=== PATIENT | female | born 1960 | race Caucasian/White ===

== ENCOUNTER 2021-11-01 07:54 | Outpatient (REF) | payer OTHER, SELFPAY ==
--- NOTE | ~2021-11-01 | MM_ITS ---
EXAMINATION: MM SCREENING DIGITAL BREAST TOMOSYNTHESIS, BILATERAL CLINICAL INFORMATION: Screening. Asymptomatic. The lifetime risk of breast cancer based on the Tyrer-Cuzick Model is 4%. COMPARISON: Mammography: 11/30/2018, the 10/03/2017, 09/10/2015, 01/13/2015 TECHNIQUE: Digital breast tomosynthesis is performed in both the craniocaudal and mediolateral oblique views along with computer-aided detection (CAD). Synthesized 2D images are generated from the tomosynthesis. FINDINGS: There are scattered areas of fibroglandular density (ACR BI-RADS breast composition Category b). There are no significant masses, abnormal calcifications, or other abnormalities. There are scattered shifting fibroglandular parenchymal densities overall similar to prior studies. No developing density or interval architectural abnormality. There are scattered bilateral ductal secretory, vascular, and some rim calcifications. No significant changes. MM/MM tomosynthesis screening BI IMPRESSION: No mammographic evidence of malignancy. ASSESSMENT: BI-RADS 2: Benign RECOMMENDATION: Routine annual mammography screening. This patient's information was entered into a reminder system with a target due date for their next mammogram.
== END 2021-11-01 07:55 | disposition home or self-care (01) ==
LOC: HO.MAMMO 07:54
PROVIDERS: Visit Provider Internal Medicine
DX: Z12.31 Encounter for screening mammogram for malignant neoplasm of breast (principal)
CPT/HCPCS: 77063; 77067

== ENCOUNTER 2022-04-22 21:59 | Emergency (ER) | payer OTHER, SELFPAY ==
--- NOTE | ~2022-04-22 | XR_ITS ---
EXAMINATION: XR ELBOW, RIGHT CLINICAL INFORMATION: Pain. COMPARISON: None TECHNIQUE: AP, lateral, and oblique views of the right elbow.
[2022-04-22 22:02] VITALS: BP 118/56; PULSE 120; RESP 18; TEMP 36.5; O2SAT 96; BMI 23.6
== END 2022-04-23 00:35 | disposition left against medical advice (07) ==
PROVIDERS: Emergency Provider Emergency Medicine
DX: M79.601 Pain in right arm (principal); Z79.01 Long term (current) use of anticoagulants; Z79.899 Other long term (current) drug therapy
CPT/HCPCS: 73070; 99281; 99283

== ENCOUNTER → 2022-11-16 08:10 | Outpatient (BNVA) | payer OTHER, SELFPAY | PROVIDERS: Visit Provider Internal Medicine | DX: I50.23 Acute on chronic systolic (congestive) heart failure (principal); I48.19 Other persistent atrial fibrillation; I35.0 Nonrheumatic aortic (valve) stenosis; I36.1 Nonrheumatic tricuspid (valve) insufficiency; Z95.2 Presence of prosthetic heart valve; Z79.899 Other long term (current) drug therapy | CPT/HCPCS: 99202 ==

== ENCOUNTER → 2022-12-08 08:46 | Outpatient (REF) | payer OTHER, SELFPAY ==
--- NOTE | 2022-12-08 08:54 | CA_ITS ---
Transthoracic Echocardiogram Patient (Last, First, Middle): Ruby Anthony A Gender: Female Date of : 1960 Age: 62 Procedure Date: 12/08/2022 Procedure Type: Transthoracic Echocardiogram Location: OP Height: 160.02 cm Weight: 56.25 kg BSA: 1.58 m2 Heart Rate: bpm BP: 136 / 58 mmHg Occ Ther: JOE Referring MD: Phoenix Silverman MD Symptoms: Z95.2 - Presence of prosthetic heart valve Study Quality: Fair ECG Rhythm: Atrial Fibrillation Conclusions: - The left ventricular systolic function is severely decreased. The visually estimated ejection fraction is between 25-30%. - Severe biatrial enlargement. - There is moderate to severe aortic valve stenosis. - A mechanical prosthetic mitral valve is present. The prosthetic mitral valve appears to be functioning normally. - There is moderate tricuspid valve regurgitation. Findings Left Ventricle Mildly increased left ventricular cavity size. There is mildly increased left ventricular wall thickness. The left ventricular systolic function is severely decreased. The visually estimated ejection fraction is between 25 30%. There is severe global hypokinesis. Diastolic function is indeterminate on the basis of available data. Right Ventricle Normal right ventricular cavity size. There is moderately decreased right ventricular systolic function. Atria Severe biatrial enlargement. Aortic Valve There is moderate calcification of the aortic valve. There is moderate to severe aortic valve stenosis. The peak aortic velocity is 2.55 m/s with a calculated peak gradient of 26 mmHg. The mean gradient is 14 mmHg. The aortic valve area is 0.98 cm2. There is mild aortic valve regurgitation. Dimensionless index 0.29. Stroke volume index 31ml/m2. Diminished gradients due to low stroke volume. Mitral Valve A mechanical prosthetic mitral valve is present. The prosthetic mitral valve appears to be functioning normally. There is trace mitral valve regurgitation. Pulmonic Valve The pulmonic valve is likely normal. Tricuspid Valve Normal tricuspid valve structure. There is moderate tricuspid valve regurgitation. The tricuspid regurgitation jet is eccentric directed toward the right atrial free wall. Mild pulmonary hypertension is present. Great Vessels The asc aorta is normal in size. Small plaque is seen in the sino tubular ridge. Venous The inferior vena cava is dilated and collapses greater than 50% with inspiration. There is evidence of a dilated coronary sinus. Pericardium/Pleural There is no evidence of pericardial effusion. Prior Study Comparison Changes noted compared to prior study dated: 05/10/2012. Decrease in LVEF; development of aortic stenosis. Measurements 2D Linear Measurements IVSd: 1.22 0.6-0.9/0.6-1.0 cm LVIDd: 5.75 3.9-5.3/4.2-5.9 cm LVIDd Index: 3.64 2.4-3.2/2.2-3.1 cm/m2 LVIDs: 5.07 2.0-3.6 cm LVPWd: 1.28 0.7-1.1 cm LA Diam: 5.00 2.7-3.8/3.0-4.0 cm LAIDs Index: 3.16 1.5-2.3 cm/m2 LV Mass: 386.26 67-162/88-224 g LV Mass Index: 244.47 43-95/49-115 g/m2 LVOT Diam: 2.00 3.0+(-)1.3 cm 2D Systolic Function EF 4C: 35.30 >55% EF 2C: 41.50 >55% EF BiP: 36.80 >55% Mitral Valve MV VTI: 0.38 MV Pk Tito: 1.85 MV Mn Tito: 1.10 MV Pk Grad: 14.00 MV Mn Grad: 6.00 MV Pk E: 1.71 MV Decel Time: 274.00 E'Lateral: 6.96 E'Medial: 5.02 E/E' Med: 34.10 E/E' Lat: 24.60 PHT: 80.00 MVA PHT: 2.75 MVA Continuity: 1.30 Decel [place]: 6.33 Aortic Valve AoV Pk Tito: 2.55 AoV Mn Tito: 1.68 AoV VTI: 0.51 AoV Pk Grad: 26.00 Aov Mn Grad: 14.00 RON Cont.VTI: 0.98 AI Pk Tito: 3.39 AI [place]: 3.37 LVOT LVOT Pk Tito: 0.75 LVOT Mn Tito: 0.49 LVOT VTI: 0.16 LVOT Pk Grad: 2.00 LVOT Mn Grad: 1.00 LVOT Diam: 2.00 LVOT Area: 3.14 Diastolic Function MV Pk E: 1.71 E'Medial: 5.02 E/E' Med: 34.10 E' Laterial: 6.96 E/E' Lat: 24.60 Right Ventricle TAPSE (mm): 17.20 TVS' Tito: 8.03 Tricuspid Valve TR Pk Tito: 3.10 TR Pk Grad: 38.00 RA Press: 8.00 RVSP: 46.00 Great Vessels Aorta Sinus of Valsalva: 3.22 2.0-3.[address] [place]: 1.85 1.7-3.4 cm Ao Asc: 3.00 2.1-3.4 cm Updated in Other Vendor System with Status of Final Phoenix Silvemran MD electronically signed on 12/11/2022 1:03:31 PM with status of Final
--- NOTE | 2022-12-08 08:54 | HM_ITS ---
* Total monitoring time 3 days. * Underlying rhythm is atrial fibrillation. Average ventricular rate 100/Min. Range 68 to 145/Min. * About 36% the time, rate > 100/Min. * Frequent PVCs with a burden of 7.6%. 3 runs noted. Longest 4 beats. * No significant pauses or AV blocks. * No patient markers or events in diary. MTDD
[2022-12-08 09:52] LABS: Anion Gap 15 (12-20); Blood Urea Nitrogen 73 mg/dL (9-16); Calcium 9.2 mg/dL (8.4-10.2); Carbon Dioxide 29 mmol/L (22-29); Chloride 100 mmol/L (96-108); Estimated Glomerular Filt Rate 29; Glucose Random 147 mg/dL (60-115); Potassium 3.9 mmol/L (3.3-5.1); Sodium 140 mmol/L (135-145)
[2022-12-08 10:03] LABS: B Type Natriuretic Peptide 254 pg/mL (<100)
== END ==
LOC: HO.CARD 08:46
PROVIDERS: Visit Provider Internal Medicine
DX: I48.19 Other persistent atrial fibrillation (principal); I50.23 Acute on chronic systolic (congestive) heart failure; Z95.2 Presence of prosthetic heart valve
CPT/HCPCS: 36415; 80048; 83880; 93242; 93306

== ENCOUNTER 2022-12-30 02:03 | Emergency (ER) | payer OTHER, SELFPAY ==
--- NOTE | 2022-12-30 02:07 | ECG_ITS ---
Test Reason : SOB Blood Pressure : / mmHG Vent. Rate : 084 BPM Atrial Rate : 000 BPM P-R Int : 000 ms QRS Dur : 102 ms QT Int : 406 ms P-R-T Axes : 000 089 239 degrees QTc Int : 479 ms Atrial fibrillation with a competing junctional pacemaker with premature ventricular or aberrantly conducted complexes Cannot rule out Anterior infarct , age undetermined Abnormal ECG When compared with ECG of 08-DEC-2017 20:20, Nonspecific T wave abnormality, worse in Inferior leads T wave inversion now evident in Lateral leads Referred By: Generic ED Physician Electronically Signed By:EZEQUIEL METZGER MD
[2022-12-30 02:08] VITALS: BP 127/43; PULSE 95; RESP 18; TEMP 36.6; O2SAT 99; BMI 23.0
[2022-12-30 02:22] VITALS: BP 127/43; PULSE 82; RESP 18; O2SAT 98
[2022-12-30 02:34] LABS: MANUAL DIFF FLAG NO
[2022-12-30 02:35] LABS: Basophils Absolute Auto 0.1 X10*3/uL (0.0-0.2); Basophils Percent Auto 0.6 % (0-2); Eosinophils Absolute Auto 0.1 X10*3/uL (0.0-0.4); Eosinophils Percent Auto 1.2 % (0-4); Hematocrit 31.9 % (37.0-47.0); Hemoglobin 10.6 g/dl (12.0-16.0); Imm Gran Abs Auto 0.08 X10*3/uL (0.00-0.03); Imm Gran Pct Auto 0.8 % (0.0-0.4); Lymphocytes Absolute Auto 1.1 X10*3/uL (1.2-4.9); Lymphocytes Percent Auto 10.9 % (20-40); Mean Corpuscular HGB Conc 33.2 g/dl (31.0-35.0); Mean Corpuscular Hemoglobin 28.3 pg (27.0-33.0); Mean Corpuscular Volume 85.1 fL (80.0-98.0); Mean Platelet Volume 9.7 fL (9.4-12.3); Monocytes Absolute Auto 0.9 X10*3/uL (0.1-1.2); Monocytes Percent Auto 9.3 % (2-11); Neutrophils Absolute Auto 7.6 x10*3/uL (2.0-8.3); Neutrophils Percent Auto 77.2 % (45-73); Platelet Count 202 X10*3/uL (160-400); Red Blood Count 3.75 X10*6/uL (4.20-5.50); Red Cell Distribution Width 15.9 % (11.0-16.0); White Blood Count 9.8 X10*3/uL (4.8-10.8)
[2022-12-30 02:40] LABS: INTERNATIONAL NORM RATIO 3.1 (0.9-1.1); Prothrombin Time 36.8 SEC (10.0-13.1)
--- NOTE | 2022-12-30 02:41 | PC.NURSE ---
pt ambulating with stady gait to bathroom.
[2022-12-30 02:46] LABS: Anion Gap 13 (12-20); Bilirubin Total 1.7 mg/dL (0.0-1.0); Blood Urea Nitrogen 24 mg/dL (9-16); Calcium 9.4 mg/dL (8.4-10.2); Carbon Dioxide 26 mmol/L (22-29); Chloride 102 mmol/L (96-108); Creatinine Clr Calc Pharmacy 52.8; Estimated Glomerular Filt Rate > 60; Glucose Random 93 mg/dL (60-115); Lipase 22 U/L (8-78); Sodium 137 mmol/L (135-145)
[2022-12-30 02:58] LABS: Troponin-I High Sensitivity 242.9 ng/L (<3.5-17.0)
--- NOTE | 2022-12-30 02:58 | ED_ITS ---
HPI - Chest Pain General Chief Complaint: Abdominal Pain Stated Complaint: chest pain Time Seen by Provider: 12/30/22 02:57 Source: patient Mode of arrival: ambulatory Limitations: no limitations History of Present Illness HPI narrative: Patient history of persistent atrial fibrillation on Coumadin prosthetic mitral valve , Jem nonrheumatic aortic stenosis tricuspid valve insufficiency acute on chronic CHF cardiomyopathy with no documented coronary issues history of ovarian cancer in remission been having upper abdominal epigastric pain for last 3 weeks was seen at [facility] in 12/17 CT scan of the abdomen with IV contrast was negative lab workup was stable with chronically elevated troponin T was 49 on 12/17 with no delta change comes here for similar pain which is getting worse now patient is on chronically oxycodone for back pain. No radiation of pain with food slight nausea no vomiting no diarrhea no significant change in shortness of breath no palpitation no chest pain Related Data Home Medications Medication Instructions Recorded Confirmed albuterol sulfate 2.5 mg/3 mL mg inhalation 11/16/22 11/16/22 (0.083 %) solution for nebulization atorvastatin 20 mg tablet 20 mg PO BEDTIME 11/16/22 11/16/22 duloxetine 30 mg capsule,delayed 30 mg PO DAILY 11/16/22 11/16/22 release febuxostat 80 mg tablet 80 mg PO DAILY 11/16/22 11/16/22 ferrous sulfate 325 mg (65 mg 325 mg PO BID 11/16/22 11/16/22 iron) tablet,delayed release glipizide 10 mg tablet 10 mg PO DAILY 11/16/22 11/16/22 sennosides 8.6 mg capsule (senna) 8.6 mg PO BID 11/16/22 11/16/22 sitagliptin phosphate 100 mg 100 mg PO DAILY 11/16/22 11/16/22 tablet (Januvia) warfarin 2.5 mg tablet 2.5 - 5 mg PO DAILY 11/16/22 11/16/22 amoxicillin 500 mg tablet 2,000 mg PO DAILY 11/22/22 cetirizine 10 mg capsule (All Day 10 mg PO DAILY PRN 11/22/22 Allergy (cetirizine)) digoxin 250 mcg (0.25 mg) tablet 250 mcg PO .M,W,F PRN 11/22/22 gabapentin 100 mg capsule 100 mg PO TID 11/22/22 glipizide 5 mg tablet 5 mg PO .PM 11/22/22 oxycodone 10 mg tablet 10 mg PO ONCE PRN 11/22/22 pramipexole 0.25 mg tablet 0.5 mg PO DAILY 11/22/22 sennosides 8.6 mg capsule (senna) 8.6 mg PO DAILY PRN constipation 11/22/22 spironolactone 25 mg tablet 25 mg PO BID 12/15/22 Previous Rx's Medication Instructions Recorded metolazone 2.5 mg tablet 2.5 mg PO .COMPLEX #10 tabs 11/16/22 carvedilol 3.125 mg tablet (Coreg) 3.125 mg PO BID #60 tabs 12/15/22 furosemide 20 mg tablet 20 mg PO TID #90 tabs 12/15/22 sucralfate 1 gram tablet 1 g PO TID #90 tabs 12/30/22 Allergies Allergy/AdvReac Type Severity Reaction Status Date / Time lisinopril [LISINOPRIL] Allergy Severe ANGIOEDEMA Verified 12/30/22 02:08 morphine [MORPHINE] Allergy Severe ANAPHYLAXIS Verified 12/30/22 02:08 penicillin V Allergy Intermediate Itching Verified 12/30/22 02:08 cefaclor [From CECLOR] Allergy Unknown HIVES Verified 12/30/22 02:08 ciprofloxacin Allergy Unknown itchy Verified 12/30/22 02:08 codeine Allergy Unknown HIVES Verified 12/30/22 02:08 erythromycin base Allergy Unknown HIVES Verified 12/30/22 02:08 gentamicin Allergy Unknown HIVES Verified 12/30/22 02:08 methylprednisolone Allergy Unknown Unknown Verified 12/30/22 02:08 nitrofurantoin Allergy Unknown Unknown Verified 12/30/22 02:08 olmesartan [Benicar] Allergy Unknown Unknown Verified 12/30/22 02:08 Penicillins Allergy Unknown HIVES Verified 12/30/22 02:08 Sulfa (Sulfonamide Allergy Unknown HIVES Verified 12/30/22 02:08 Antibiotics) sulfamethoxazole Allergy Unknown HIVES Verified 12/30/22 02:08 [From BACTRIM] trimethoprim [From BACTRIM] Allergy Unknown HIVES Verified 12/30/22 02:08 hydromorphone [From Dilaudid] AdvReac Shakiness Verified 12/30/22 02:08 odansetron Allergy Severe Hives Uncoded 12/30/22 02:08 Metoprolol Succinate Allergy Intermediate Hives Uncoded 12/30/22 02:08 celcor Allergy Unknown itchy Uncoded 12/30/22 02:08 Gentamicin in Saline Allergy Unknown hives Uncoded 12/30/22 02:08 Gentamicin Sulfate Allergy Unknown hives Uncoded 12/30/22 02:08 Latex Allergy Unknown Itching Uncoded 12/30/22 02:08 latex Allergy Unknown Itching Uncoded 12/30/22 02:08 sulfonamides Allergy Unknown Unknown Uncoded 12/30/22 02:08 vioxx Allergy Unknown Itching Uncoded 12/30/22 02:08 Bicitra AdvReac Unknown unknown Uncoded 12/30/22 02:08 Review of Systems Review of Systems: Yes all other systems are reviewed and are negative [facility] Past Medical History Medical History Non-rheumatic aortic stenosis Persistent atrial fibrillation Tricuspid valve insufficiency, non-rheumatic Surgical History H/O mitral valve replacement with mechanical valve Family History Family History Mother Heart disease Father Heart disease Diabetes Social History Social History Alcohol intake: never Patient Tobacco Use Status: Former Tobacco user Quit Date: 1990 Years Smoked: 4 +/- Smoked in Last 30 Days: No Use of substances other than those prescribed or required for medical reasons: No Advance Directives: No Advance Directives Information Provided: No Patient : No Physical Exam Vital Signs: Vital Signs: Last Vital Signs Temp 97.8 F 12/30/22 02:08 Pulse 82 12/30/22 04:14 Resp 16 12/30/22 04:14 BP 131/52 L 12/30/22 04:14 Pulse Ox 93 12/30/22 04:14 O2 Del Method Room Air 12/30/22 04:14 BMI result Body Mass Index 23.0 Appearance: Alert. Oriented X3. In my distress. Eyes: PERRLA, No Nystagmus ENT: Pharynx normal. Oral Mucosa moist Neck: Normal inspection. Neck supple. CVS: Irregularly irregular heart rate systolic murmur at the base. Pulses normal. Respiratory: No respiratory distress. Equal air entry bilateral, no wheezing/rales/rhonchi Abdomen: Soft, tenderness in epigastric area, Bowel sounds are present, no mass palpable, no CVA tenderness Skin: Skin warm and dry. Normal skin color. Normal skin turgor. Extremities: No lower extremity edema. No calf tenderness Neuro: Oriented X 3. No motor deficit. No sensory deficit.No cerebellar signs , cranial nerves II-XII intact Medications Administered Discontinued Medications Generic Name Dose Route Start Last Admin Trade Name Freq PRN Reason Stop Dose Admin Al Hydroxide/Mg Hydroxide 30 ml 12/30/22 03:03 12/30/22 03:12 Magnesium Hydrox/Alum Hydrox 30 Ml Oral.Susp PO 12/30/22 03:04 30 ml ONCE ONE Administration Famotidine 20 mg 12/30/22 03:03 12/30/22 03:12 Famotidine/Pf 20 Mg/2 Ml Vial IVPUSH 12/30/22 03:04 20 mg ONCE ONE Administration Hydromorphone HCl 1 mg 12/30/22 04:04 12/30/22 04:09 Hydromorphone Hcl 1 Mg/Ml Syringe IVPUSH 12/30/22 04:05 1 mg ONCE ONE Administration Protocol Lidocaine HCl 15 ml 12/30/22 04:04 12/30/22 04:09 Lidocaine Hcl Viscous 2 % 15 Ml Solution MUCOUS MEM 12/30/22 04:05 15 ml ONCE ONE Administration Nitroglycerin 0.5 inch 12/30/22 03:03 12/30/22 03:12 Nitroglycerin 2 % Oint 1 Gm Packet TRANSDERMA 12/30/22 03:04 0.5 inch ONCE ONE Administration Medical Decision Making Medical Decision Making [facility] Narrative: Patient with epigastric pain for last [address] scan of the abdomen negative at [facility] has chronically elevated troponin with no delta change no acute ischemic changes in the EKG patient be following with gastroenterologi st already on Prilosec and famotidine will add sucralfate patient Coumadin with INR 3.1 be patient felt better after Maalox. Discharge patient home on sucralfate tablets Differential Diagnosis Acute gastritis/pancreatitis/ Lab Data [facility] Lab Attestation statement: I reviewed the patient's lab results. 12/30/22 02:29 12/30/22 02:29 Labs: Lab Results 12/30/22 12/30/22 12/30/22 Range/Units 02:29 02:29 02:29 WBC 9.8 (4.8-10.8) X10*3/uL RBC 3.75 L (4.20-5.50) X10*6/uL Hgb 10.6 L (12.0-16.0) g/dl Hct 31.9 L (37.0-47.0) % MCV 85.1 (80.0-98.0) fL MCH 28.3 (27.0-33.0) pg MCHC 33.2 (31.0-35.0) g/dl RDW 15.9 (11.0-16.0) % Plt Count 202 (160-400) X10*3/uL MPV 9.7 (9.4-12.3) fL Immature Gran % (Auto) 0.8 H (0.0-0.4) % Neut % (Auto) 77.2 H (45-73) % Lymph % (Auto) 10.9 L (20-40) % [place] % (Auto) 9.3 (2-11) % Eos % (Auto) 1.2 (0-4) % Baso % (Auto) 0.6 (0-2) % Lymph # (Auto) 1.1 L (1.2-4.9) X10*3/uL [place] # (Auto) 0.9 (0.1-1.2) X10*3/uL Eos # (Auto) 0.1 (0.0-0.4) X10*3/uL Baso # (Auto) 0.1 (0.0-0.2) X10*3/uL Abs Immat Gran (auto) 0.08 H (0.00-0.03) X10*3/uL Absolute Neuts (auto) 7.6 (2.0-8.3) x10*3/uL Absolute Nucleated RBC 0.000 (0.0-0.012) X10*3/uL Nucleated RBC % (auto) 0.0 (0.0-0.2) /100WBC PT (10.0-13.1) SEC INR (0.9-1.1) Sodium 137 (135-145) mmol/L Potassium 4.0 (3.3-5.1) mmol/L Chloride 102 (96-108) mmol/L Carbon Dioxide 26 (22-29) mmol/L Anion Gap 13 (12-20) BUN 24 H (9-16) mg/dL Creatinine 0.89 (0.5-1.4) mg/dL Estim Creat Clear Calc 52.8 Estimated GFR > 60 Random Glucose 93 (60-115) mg/dL Calcium 9.4 (8.4-10.2) mg/dL Total Bilirubin 1.7 H (0.0-1.0) mg/dL Troponin I High Sens 242.9 H* (<3.5-17.0) ng/L Lipase 22 (8-78) U/L 12/30/22 12/30/22 Range/Units 02:29 04:40 WBC (4.8-10.8) X10*3/uL RBC (4.20-5.50) X10*6/uL Hgb (12.0-16.0) g/dl Hct (37.0-47.0) % MCV (80.0-98.0) fL MCH (27.0-33.0) pg MCHC (31.0-35.0) g/dl RDW (11.0-16.0) % Plt Count (160-400) X10*3/uL MPV (9.4-12.3) fL Immature Gran % (Auto) (0.0-0.4) % Neut % (Auto) (45-73) % Lymph % (Auto) (20-40) % [place] % (Auto) (2-11) % Eos % (Auto) (0-4) % Baso % (Auto) (0-2) % Lymph # (Auto) (1.2-4.9) X10*3/uL [place] # (Auto) (0.1-1.2) X10*3/uL Eos # (Auto) (0.0-0.4) X10*3/uL Baso # (Auto) (0.0-0.2) X10*3/uL Abs Immat Gran (auto) (0.00-0.03) X10*3/uL Absolute Neuts (auto) (2.0-8.3) x10*3/uL Absolute Nucleated RBC (0.0-0.012) X10*3/uL Nucleated RBC % (auto) (0.0-0.2) /100WBC PT 36.8 H (10.0-13.1) SEC INR 3.1 H (0.9-1.1) Sodium (135-145) mmol/L Potassium (3.3-5.1) mmol/L Chloride (96-108) mmol/L Carbon Dioxide (22-29) mmol/L Anion Gap (12-20) BUN (9-16) mg/dL Creatinine (0.5-1.4) mg/dL Estim Creat Clear Calc Estimated GFR Random Glucose (60-115) mg/dL Calcium (8.4-10.2) mg/dL Total Bilirubin (0.0-1.0) mg/dL Troponin I High Sens 233.8 H* (<3.5-17.0) ng/L Lipase (8-78) U/L Independent Interpretation I performed an independent interpretation of an: EKG Interpretation: Atrial fibrillation ventricular rate of 84 occasional PVCs poor progression of R-wave no acute ST T wave changes no acute ischemia Discharge Plan Discharge Clinical Impression: Gastritis Patient Disposition: Home, Self-Care Instructions: Gastritis (ED) Additional Instructions: Abdominal pain likely from inflammation in the stomach Continue to take your Prilosec and famotidine as given to you by your PCP Sucralfate 3 times a day before meals 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 as scheduled Prescriptions: New sucralfate 1 gram tablet 1 g PO TID Qty: 90 0RF Rx Instructions: Take it 1 hour before meals No Action metolazone 2.5 mg tablet 2.5 mg PO .COMPLEX Qty: 10 3RF Rx Instructions: 2.5 mg orally on Monday and ; digoxin 250 mcg (0.25 mg) tablet 250 mcg PO .M,W,F PRN Rx Instructions: 3x weekly glipizide 5 mg tablet 5 mg PO .PM senna 8.6 mg capsule 8.6 mg PO DAILY PRN (Reason: constipation) Rx Instructions: Take 2 tablets PRN constipation pramipexole 0.25 mg tablet 0.5 mg PO DAILY Rx Instructions: Take 2 tablets daily for Restless Leg Syndrome All Day Allergy (cetirizine) 10 mg capsule 10 mg PO DAILY PRN amoxicillin 500 mg tablet 2,000 mg PO DAILY Rx Instructions: Dental prophylaxis gabapentin 100 mg capsule 100 mg PO TID Rx Instructions: Neuropathy oxycodone 10 mg tablet 10 mg PO ONCE PRN Rx Instructions: PRN Back Pain carvedilol [Coreg] 3.125 mg tablet 3.125 mg PO BID Qty: 60 5RF Rx Instructions: must administer with a meal/food furosemide 20 mg tablet 20 mg PO TID Qty: 90 5RF spironolactone 25 mg tablet 25 mg PO BID warfarin 2.5 mg tablet 2.5 - 5 mg PO DAILY Januvia 100 mg tablet 100 mg PO DAILY glipizide 10 mg tablet 10 mg PO DAILY atorvastatin 20 mg tablet 20 mg PO BEDTIME senna 8.6 mg capsule 8.6 mg PO BID febuxostat 80 mg tablet 80 mg PO DAILY duloxetine 30 mg capsule,delayed release(DR/EC) 30 mg PO DAILY ferrous sulfate 325 mg (65 mg iron) tablet,delayed release (DR/EC) 325 mg PO BID albuterol sulfate 2.5 mg /3 mL (0.083 %) solution for nebulization inhalation
[2022-12-30 03:12] VITALS: BP 133/62; PULSE 80
[2022-12-30] MEDS: Nitroglycerin 2 % Oint 1 GM Packet 0.5 INCH TRANSDERMA (03:12)
[2022-12-30] MEDS: Magnesium Hydrox/Alum Hydrox 30 ML ORAL.SUSP PO (03:12)
[2022-12-30] MEDS: Famotidine/PF 20 MG/2 ML VIAL IVPUSH (03:12)
--- NOTE | 2022-12-30 03:44 | PC.NURSE ---
On reassessment, pt stating pain in abdomen reduced with administered medication. pt sts chest pain still at previous leve despite nitro paste. made aware.
[2022-12-30] MEDS: Lidocaine HCl Viscous 2 % 15 ML SOLUTION MUCOUS MEM (04:09)
[2022-12-30] MEDS: HYDROmorphone HCl 1 MG/ML SYRINGE IVPUSH (04:09)
[2022-12-30 04:14] VITALS: BP 131/52; PULSE 82; RESP 16; O2SAT 93
[2022-12-30 05:11] LABS: Troponin-I High Sensitivity 233.8 ng/L (<3.5-17.0)
== END 2022-12-30 06:29 | disposition home or self-care (01) ==
PROVIDERS: Emergency Provider Internal Medicine; PCP Emergency Medicine
DX: K29.70 Gastritis, unspecified, without bleeding (principal); R07.89 Other chest pain; I48.91 Unspecified atrial fibrillation; Z79.01 Long term (current) use of anticoagulants; Z79.899 Other long term (current) drug therapy
CPT/HCPCS: 36415; 80048; 82247; 83690; 84484; 85025; 85610; 93005; 96374; 96375; 99284; J1170

== ENCOUNTER 2023-01-26 08:24 | Outpatient (AMB) | payer OTHER, SELFPAY ==
[2023-01-26 08:32] VITALS: BP 115/70; PULSE 90; BMI 22.3
--- NOTE | 2023-01-26 08:32 | MHC.OFFVIS ---
Intake Vital Signs 01/26/23 08:32 Height 5 ft 3 in Weight 125 lb 10.616 oz BMI 22.3 BP 115/70 Blood Pressure Location Rt brachial Position Sitting Pulse 90 Intake Visit Reasons: OVERDUE FOLLOW UP S/P TESTING Intake Note: overdue f/u testing Cfd Engineer Required: No Allergies lisinopril [LISINOPRIL] Allergy (Severe, Verified 01/26/23 08:41) ANGIOEDEMA morphine [MORPHINE] Allergy (Severe, Verified 01/26/23 08:41) ANAPHYLAXIS penicillin V Allergy (Intermediate, Verified 01/26/23 08:41) Itching cefaclor [From CECLOR] Allergy (Unknown, Verified 01/26/23 08:41) HIVES ciprofloxacin Allergy (Unknown, Verified 01/26/23 08:41) itchy codeine Allergy (Unknown, Verified 01/26/23 08:41) HIVES erythromycin base Allergy (Unknown, Verified 01/26/23 08:41) HIVES gentamicin Allergy (Unknown, Verified 01/26/23 08:41) HIVES methylprednisolone Allergy (Unknown, Verified 01/26/23 08:41) Unknown nitrofurantoin Allergy (Unknown, Verified 01/26/23 08:41) Unknown olmesartan [Benicar] Allergy (Unknown, Verified 01/26/23 08:41) Unknown Penicillins Allergy (Unknown, Verified 01/26/23 08:41) HIVES Sulfa (Sulfonamide Antibiotics) Allergy (Unknown, Verified 01/26/23 08:41) HIVES sulfamethoxazole [From BACTRIM] Allergy (Unknown, Verified 01/26/23 08:41) HIVES trimethoprim [From BACTRIM] Allergy (Unknown, Verified 01/26/23 08:41) HIVES hydromorphone [From Dilaudid] Adverse Reaction (Verified 01/26/23 08:41) Shakiness odansetron Allergy (Severe, Uncoded 12/30/22 02:08) Hives Metoprolol Succinate Allergy (Intermediate, Uncoded 12/30/22 02:08) Hives celcor Allergy (Unknown, Uncoded 12/30/22 02:08) itchy Gentamicin in Saline Allergy (Unknown, Uncoded 12/30/22 02:08) hives Gentamicin Sulfate Allergy (Unknown, Uncoded 12/30/22 02:08) hives Latex Allergy (Unknown, Uncoded 12/30/22 02:08) Itching latex Allergy (Unknown, Uncoded 12/30/22 02:08) Itching sulfonamides Allergy (Unknown, Uncoded 12/30/22 02:08) Unknown vioxx Allergy (Unknown, Uncoded 12/30/22 02:08) Itching Bicitra Adverse Reaction (Unknown, Uncoded 12/30/22 02:08) unknown Medication List - Last Reconciled 01/26/23 by MARVEL DanielsC albuterol sulfate mg inhalation atorvastatin 20 mg PO BEDTIME cetirizine (All Day Allergy (cetirizine)) 10 mg PO DAILY PRN digoxin 250 mcg PO .M,W,F PRN febuxostat 80 mg PO DAILY ferrous sulfate 325 mg PO BID furosemide 20 mg PO TID gabapentin 100 mg PO TID metolazone 2.5 mg orally on Monday and ; mirtazapine 15 mg PO BEDTIME ondansetron 4 mg PO Q8H oxycodone 10 mg PO ONCE PRN pramipexole 0.5 mg PO DAILY quetiapine 25 mg PO BEDTIME sennosides (senna) 8.6 mg PO DAILY PRN sennosides (senna) 8.6 mg PO BID sitagliptin phosphate (Januvia) 100 mg PO DAILY spironolactone 25 mg PO BID sucralfate 1 g PO TID warfarin 2.5 - 5 mg PO DAILY HPI OVERDUE FOLLOW UP S/P TESTING HPI Details Coretta is a 63-year-old female with past medical history of hyperlipidemia, rheumatic heart disease, severe MS status post mechanical mitral valve replacement 1990, persistent atrial fibrillation, nonischemic cardiomyopathy, heart failure with reduced EF, aortic stenosis who was previously [facility] cardiology and has switched to our office. She has multiple medication allergies and was recently tried on carvedilol for elevated heart rates with her AFib and now presents for follow-up. Today she reports that she was not able to tolerate the carvedilol. She took it for 3 days and she had chest heaviness and needed to stop. She did change from torsemide to Lasix and tells me it works much better for her. She has been urinating more. She has some shortness of breath if she has to walk long distances. Breathing is comfortable with normal ADLs. She normally sleeps with her head of the bed elevated. no chest discomfort at rest or with activity. No palpitations, dizziness, presyncope, syncope, falls. Follows with [facility] anticoagulation clinic. No bleeding issues reported. Intolerant to many medications and has skin sensitivities to different things like detergents. Describes herself as active. [facility] Medical History Non-rheumatic aortic stenosis Persistent atrial fibrillation Tricuspid valve insufficiency, non-rheumatic Surgical History H/O mitral valve replacement with mechanical valve Family History Mother Heart disease Father Heart disease Diabetes Social History Alcohol intake: never Patient Tobacco Use Status: Former Tobacco user Quit Date: 1990 Years Smoked: 4 +/- Review of Systems Const All systems reviewed & are unremarkable except as noted in HPI and below ENT Reports dizziness Card Denies chest pain, Denies chest pain at rest, Denies chest pain with activity, Denies rapid heart rate, Denies pedal edema, Denies edema, Denies leg edema, Denies lightheadedness, Denies palpitations, Denies dyspnea, Denies dyspnea on exertion and Denies orthopnea Resp Denies cough, Denies dyspnea and Denies dyspnea on exertion GI Denies hematochezia and Denies change in stool character Musc Denies abnormal gait, Reports limited range of motion, Reports muscle cramps, Denies muscle weakness, Denies numbness, Denies radiating pain into limb, Denies stiffness and Denies tingling Neuro Denies abnormal gait, Reports dizziness, Denies numbness and Denies tingling Endo Denies palpitations Physical Exam Vital Signs: Last Vital Signs Pulse 90 01/26/23 08:32 BP 115/70 01/26/23 08:32 BMI result Body Mass Index 22.3 Const General: cooperative, comfortable and no acute distress Orientation/consciousness: patient oriented x3 Neck Neck: Yes normal visual inspection Resp Effort & Inspection: normal respiratory effort Auscultation: clear to auscultation bilaterally, no crackles, no rales, no rhonchi and no wheezes Cardio Jugular venous distension: no JVD Rate: regular rate Heart sounds: S1 normal heart sound present, S2 normal heart sound present, no gallops, no murmurs and no rubs Neuro General: patient oriented x3 Extrem Other: varicose veins of lower extremities, no edema Psych Appearance: grossly normal Mental Status: mental status grossly normal Speech and movement: Normal speech and movement present Office Procedures EKG Details: today, read by me, atrial fibrillation, 2 PVCs, right axis deviation, ST and T abnormality inferior lateral leads, same as prior EKG, QTC 474 milliseconds, rate 90 [id number], Complete Assessment & Plan Assessment & Plan (1) Cardiomyopathy: Code(s): I42.9 - Cardiomyopathy, unspecified Plan: Echocardiogram from [facility] May 2022 showed EF 20-25%. Nuclear stress test done 2020 showed no ischemia, small mid inferior scar. recent echo done here at [facility] [place] shows EF 25-30%, severe biatrial enlargement, moderate to severe aortic stenosis, mechanical mitral valve functioning normally, moderate tricuspid regurgitation. Echo overall no significant change from prior. She had been on torsemide 40 mg b.i.d. And since her last visit she requested a slip box changer to Lasix. She is currently on Lasix 20 mg t.i.d.. labs done on 12/08/2022 showed elevated creatinine 1.78. She is intolerant to meds for neurohormonal modulation including koby/ Arb and beta blockers. Recently tried on carvedilol and reports chest heaviness so she stopped it. on physical exam she does not appear fluid overloaded. She tells me the Lasix is working better for her than the torsemide was. will recheck labs today including CMP and BNP. Signs and symptoms of heart failure reviewed with her. Cardiology follow-up in 3 months, sooner if needed to evaluate for heart failure symptoms. Will check with her primary cake tester regarding plan for optimal med management In the setting of multi allergies. (2) Chronic systolic heart failure: Code(s): I50.22 - Chronic systolic (congestive) heart failure Plan: stable at present. BNP ordered for today (3) Non-rheumatic aortic stenosis: Code(s): I35.0 - Nonrheumatic aortic (valve) stenosis Plan: last echo shows moderate to severe aortic stenosis. Systolic murmur noted on examination. She denies cardinal signs of severe . Cardinal signs of severe reviewed with her. will continue to follow with periodic echoes. (4) H/O mitral valve replacement with mechanical valve: Code(s): Z95.2 - Presence of prosthetic heart valve Plan: Mechanical mitral valve placed 1990. Recent echo shows it is functioning normally. She is on Coumadin for anticoagulation and follows with the [facility] anticoagulation clinic. no bleeding issues reported (5) Persistent atrial fibrillation: Code(s): I48.19 - Other persistent atrial fibrillation Plan: history of chronic persistent atrial fibrillation. She is on digoxin for heart rate control. She is intolerant to beta blockers and unable to take calcium channel zechariah in the setting of cardiomyopathy. Recent Holter for 3 days shows atrial fibrillation with average heart rate 100, 36% of the time heart rate greater than 100, frequent PVCs 7.6%. She was tried on carvedilol and was intolerant. At present will continue on digoxin and obtain a digoxin level with labs today. Orders: Orders B Type Natriuretic Peptide Today I50.23 - Acute on chronic systolic (congestive) heart failure Comprehensive Met. Panel Today I50.23 - Acute on chronic systolic (congestive) heart failure Digoxin Today I48.19 - Other persistent atrial fibrillation Coding Level of Care Code Est Pt Level 4 (78723) Diagnoses Cardiomyopathy I42.9 Chronic systolic heart failure I50.22 Non-rheumatic aortic stenosis I35.0 H/O mitral valve replacement with mechanical valve Z95.2 Persistent atrial fibrillation I48.19 CPT Codes EKG - CPT: 32537-[id number], Complete ([id number]) Time Spent (min) 30 Comment chart review, documentation, interview, assess
== END 2023-01-26 09:07 | disposition home or self-care (01) ==
PROVIDERS: PCP Emergency Medicine; Visit Provider Nurse Practitioner Family
DX: I42.9 Cardiomyopathy, unspecified (principal); I50.22 Chronic systolic (congestive) heart failure; I35.0 Nonrheumatic aortic (valve) stenosis; I48.19 Other persistent atrial fibrillation; Z95.2 Presence of prosthetic heart valve
CPT/HCPCS: 93010; 99214

== ENCOUNTER 2023-01-26 08:24 | Outpatient (REF) | payer OTHER, SELFPAY ==
[2023-01-26 09:53] LABS: Digoxin 0.2 ng/mL (0.8-2.0)
[2023-01-26 10:41] LABS: Alanine Aminotransferase 15 U/L (0-31); Albumin Level 4.4 g/dL (3.5-5.0); Alkaline Phosphatase 113 U/L (39-117); Anion Gap 11 (12-20); Aspartate Amino Transferase 17 U/L (5-31); Bilirubin Total 1.5 mg/dL (0.0-1.0); Blood Urea Nitrogen 27 mg/dL (9-16); Carbon Dioxide 29 mmol/L (22-29); Chloride 103 mmol/L (96-108); Estimated Glomerular Filt Rate 52; Glucose Random 139 mg/dL (60-115); Potassium 3.8 mmol/L (3.3-5.1); Sodium 139 mmol/L (135-145); Total Protein 7.1 g/dL (6.5-8.0)
[2023-01-26 10:43] LABS: B Type Natriuretic Peptide 600 pg/mL (<100)
== END 2023-01-26 08:25 | disposition home or self-care (01) ==
LOC: HO.LAB 08:24
PROVIDERS: PCP Emergency Medicine; Visit Provider Nurse Practitioner Family
DX: I50.23 Acute on chronic systolic (congestive) heart failure (principal); I48.19 Other persistent atrial fibrillation; I42.9 Cardiomyopathy, unspecified; I35.0 Nonrheumatic aortic (valve) stenosis; Z95.2 Presence of prosthetic heart valve; Z79.899 Other long term (current) drug therapy
CPT/HCPCS: 36415; 80053; 80162; 83880; 93005; 99212

== ENCOUNTER 2023-02-09 17:14 | Emergency (ER) | payer OTHER, SELFPAY ==
--- NOTE | ~2023-02-09 | XR_ITS ---
EXAMINATION: XR ELBOW, LEFT CLINICAL INFORMATION: Pain COMPARISON: None available. TECHNIQUE: 2 views frontal and oblique of the left elbow. FINDINGS: The bones and soft tissues are normal. No fracture or joint effusion. Alignment is anatomic. Joint spaces are maintained. XR/XR elbow LT min 3V IMPRESSION: No fracture or dislocation.
--- NOTE | ~2023-02-09 | XR_ITS ---
EXAMINATION: XR SHOULDER, LEFT XR HUMERUS, LEFT CLINICAL INFORMATION: Pain COMPARISON: None available. TECHNIQUE: 3 views left shoulder 2 views left humerus FINDINGS: Vertically oriented minimally displaced fracture involving the greater tuberosity of the left proximal humerus no acute visible dislocation. Suggestion of calcific tendinosis of the supraspinatus tendon. Degenerative arthropathy of the glenohumeral and acromioclavicular joint. Enthesopathy noted along the lateral epicondyle of the elbow. Joint spaces and alignment are otherwise maintained. Soft tissues are unremarkable. Sternotomy wires partially visualized in the chest. XR/XR shoulder LT min 2V IMPRESSION: 1. Vertically oriented minimally displaced fracture involving the greater tuberosity of the left proximal humerus. 2. Suggestion of calcific tendinosis of the supraspinatus tendon. 3. Degenerative arthropathy of the glenohumeral and acromioclavicular joint. 4. Enthesopathy noted along the lateral epicondyle of the elbow.
--- NOTE | ~2023-02-09 | XR_ITS ---
EXAMINATION: XR SHOULDER, LEFT XR HUMERUS, LEFT CLINICAL INFORMATION: Pain COMPARISON: None available. TECHNIQUE: 3 views left shoulder 2 views left humerus FINDINGS: Vertically oriented minimally displaced fracture involving the greater tuberosity of the left proximal humerus no acute visible dislocation. Suggestion of calcific tendinosis of the supraspinatus tendon. Degenerative arthropathy of the glenohumeral and acromioclavicular joint. Enthesopathy noted along the lateral epicondyle of the elbow. Joint spaces and alignment are otherwise maintained. Soft tissues are unremarkable. Sternotomy wires partially visualized in the chest. XR/XR humerus LT IMPRESSION: 1. Vertically oriented minimally displaced fracture involving the greater tuberosity of the left proximal humerus. 2. Suggestion of calcific tendinosis of the supraspinatus tendon. 3. Degenerative arthropathy of the glenohumeral and acromioclavicular joint. 4. Enthesopathy noted along the lateral epicondyle of the elbow.
[2023-02-09 18:18] VITALS: BP 152/89; PULSE 95; RESP 20; TEMP 36.7; O2SAT 97; BMI 22.1
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
[2023-02-09 19:41] VITALS: BP 148/88; PULSE 94; RESP 20; TEMP 36.8; O2SAT 98
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
--- NOTE | 2023-02-09 21:12 | PC.NURSE ---
offered motrin but states unable to take due to being on blood thinners.
[2023-02-09 22:04] VITALS: BP 142/84; PULSE 92; RESP 18; TEMP 36.7; O2SAT 97
[2023-02-09] MEDS: oxyCODONE HCl Immed Release 5 MG TABLET PO (22:37)
== END 2023-02-09 22:42 | disposition home or self-care (01) ==
PROVIDERS: Emergency Provider Emergency Medicine; PCP Emergency Medicine
DX: S42.92XA Fracture of left shoulder girdle, part unspecified, initial encounter for closed fracture (principal); M25.512 Pain in left shoulder; E11.9 Type 2 diabetes mellitus without complications; W01.10XA Fall on same level from slipping, tripping and stumbling with subsequent striking against unspecified object, initial encounter; Y93.9 Activity, unspecified; Y92.007 Garden or yard of unspecified non-institutional (private) residence as the place of occurrence of the external cause; Y99.9 Unspecified external cause status; Z79.899 Other long term (current) drug therapy; Z87.891 Personal history of nicotine dependence; Z79.01 Long term (current) use of anticoagulants
CPT/HCPCS: 73030; 73060; 73080; 99283; 99284

== ENCOUNTER 2023-02-17 07:56 | Outpatient (REF) | payer OTHER, SELFPAY ==
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
== END 2023-02-17 07:57 | disposition home or self-care (01) ==
LOC: HO.HOSX 07:56
PROVIDERS: PCP Emergency Medicine; Visit Provider Physician Assistant
DX: S42.252A Displaced fracture of greater tuberosity of left humerus, initial encounter for closed fracture (principal)
CPT/HCPCS: 73030; 99202

== ENCOUNTER 2023-02-17 07:56 | Outpatient (AMB) | payer OTHER, SELFPAY ==
[2023-02-17 08:02] VITALS: BMI 22.1
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
== END 2023-02-17 08:30 | disposition home or self-care (01) ==
PROVIDERS: PCP Emergency Medicine; Visit Provider Physician Assistant
DX: S42.252A Displaced fracture of greater tuberosity of left humerus, initial encounter for closed fracture (principal); S42.202A Unspecified fracture of upper end of left humerus, initial encounter for closed fracture
CPT/HCPCS: 99204

== ENCOUNTER 2023-03-01 12:50 | Outpatient (AMB) | payer OTHER, SELFPAY ==
[2023-03-01 12:55] VITALS: BP 140/60; PULSE 94; BMI 23.0
--- NOTE | 2023-03-01 12:55 | A.OFFVIS_ITS ---
Intake Vital Signs 03/01/23 12:55 Height 5 ft 3 in Weight 130 lb 1.164 oz BMI 23.0 BP 140/60 H Blood Pressure Location Rt brachial Position Sitting Pulse 94 Intake Visit Reasons: [facility] dc fu Intake Note: [facility] dc Allergies lisinopril [LISINOPRIL] Allergy (Severe, Verified 03/01/23 13:06) ANGIOEDEMA morphine [MORPHINE] Allergy (Severe, Verified 03/01/23 13:06) ANAPHYLAXIS penicillin V Allergy (Intermediate, Verified 03/01/23 13:06) Itching cefaclor [From CECLOR] Allergy (Unknown, Verified 03/01/23 13:06) HIVES ciprofloxacin Allergy (Unknown, Verified 03/01/23 13:06) itchy codeine Allergy (Unknown, Verified 03/01/23 13:06) HIVES erythromycin base Allergy (Unknown, Verified 03/01/23 13:06) HIVES gentamicin Allergy (Unknown, Verified 03/01/23 13:06) HIVES methylprednisolone Allergy (Unknown, Verified 03/01/23 13:06) Unknown nitrofurantoin Allergy (Unknown, Verified 03/01/23 13:06) Unknown olmesartan [Benicar] Allergy (Unknown, Verified 03/01/23 13:06) Unknown Penicillins Allergy (Unknown, Verified 03/01/23 13:06) HIVES Sulfa (Sulfonamide Antibiotics) Allergy (Unknown, Verified 03/01/23 13:06) HIVES sulfamethoxazole [From BACTRIM] Allergy (Unknown, Verified 03/01/23 13:06) HIVES trimethoprim [From BACTRIM] Allergy (Unknown, Verified 03/01/23 13:06) HIVES hydromorphone [From Dilaudid] Adverse Reaction (Verified 03/01/23 13:06) Shakiness odansetron Allergy (Severe, Uncoded 02/17/23 08:17) Hives Metoprolol Succinate Allergy (Intermediate, Uncoded 02/17/23 08:17) Hives celcor Allergy (Unknown, Uncoded 02/17/23 08:17) itchy Gentamicin in Saline Allergy (Unknown, Uncoded 02/17/23 08:17) hives Gentamicin Sulfate Allergy (Unknown, Uncoded 02/17/23 08:17) hives Latex Allergy (Unknown, Uncoded 02/17/23 08:17) Itching latex Allergy (Unknown, Uncoded 02/17/23 08:17) Itching sulfonamides Allergy (Unknown, Uncoded 02/17/23 08:17) Unknown vioxx Allergy (Unknown, Uncoded 02/17/23 08:17) Itching Bicitra Adverse Reaction (Unknown, Uncoded 02/17/23 08:17) unknown Medication List - Last Reconciled 03/01/23 by Evelyn New NP cetirizine (All Day Allergy (cetirizine)) 10 mg PO DAILY PRN digoxin 0 mcg PO febuxostat 80 mg PO DAILY ferrous sulfate 325 mg PO BID ferrous sulfate (FeroSul) 325 mg PO BID furosemide 60 mg PO TID gabapentin 100 mg PO TID mirtazapine 15 mg PO BEDTIME omeprazole 40 mg PO BID ondansetron 4 mg PO Q8H pramipexole 0.5 mg PO DAILY quetiapine 25 mg PO BEDTIME sennosides (senna) 8.6 mg PO DAILY PRN sennosides (senna) 8.6 mg PO BID sitagliptin phosphate (Januvia) 100 mg PO DAILY spironolactone 50 mg PO BID sucralfate 1 g PO TID tramadol 50 mg PO Q8H PRN warfarin 2.5 - 5 mg PO DAILY HPI HPI Comments History of Present Illness Details 63-year-old female presents today for a follow-up after being in [facility] for heart failure. She had her lasix increase to 60mg three times a day. She has a history of cardiomyopathy, aortic stenosis, persistent atrial fibrillation, mechanical mitral valve, tricuspid valve, insufficiency. She denies SOB, palipations, or dizziness. She reports her legs are swollen. She is not fully confiedent in her medications today and is going to double check them when she gets home. She does report she has been taking the lasix 60gm TID. She did not roll picker the amiodarone. She continues on Warfarin. Patient is down 5 lbs from [facility] admission ( 02/26/23 weight was 135 lbs) COUNTS INCLUDE 234 BEDS AT THE [facility] Medical History Non-rheumatic aortic stenosis Persistent atrial fibrillation Tricuspid valve insufficiency, non-rheumatic Surgical History H/O mitral valve replacement with mechanical valve Family History Mother Heart disease Father Heart disease Diabetes Social History Alcohol intake: never Patient Tobacco Use Status: Former Tobacco user Quit Date: 1990 Years Smoked: 4 +/- Review of Systems Const Denies chills, Denies fatigue, Denies fever(s), Denies frequent falls, Denies weakness, Denies weight gain and Denies weight loss ENT Denies dizziness Card Denies chest pain, Denies chest pain at rest, Denies chest pain with activity, Denies rapid heart rate, Denies pedal edema, Denies edema, Reports leg edema, Denies lightheadedness, Denies palpitations, Denies dyspnea, Denies dyspnea on exertion and Denies orthopnea Resp Denies cough, Denies dyspnea and Denies dyspnea on exertion GI Denies hematochezia and Denies change in stool character Musc Denies abnormal gait, Reports limited range of motion, Denies muscle cramps, Denies muscle weakness, Denies numbness, Denies radiating pain into limb, Denies stiffness and Denies tingling Neuro Denies abnormal gait, Denies dizziness, Denies frequent falls, Denies numbness, Denies tingling and Denies weakness Endo Denies fatigue and Denies palpitations Physical Exam Vital Signs: Last Vital Signs Pulse 94 03/01/23 12:55 BP 140/60 H 03/01/23 12:55 BMI result Body Mass Index 23.0 Const General: cooperative and no acute distress Orientation/consciousness: patient oriented x3 HEENT Head: Yes normal to inspection Eyes General: appearance normal, both eyes and all related structures Neck Neck: Yes normal visual inspection Chest Chest palpation & inspection: normal inspection of the chest Resp Effort & Inspection: normal respiratory effort Auscultation: clear to auscultation bilaterally Cardio Other: Mechanical heart valve Jugular venous distension: no JVD Palpation: normal PMI Heart sounds: no gallops and no rubs Peripheral pulses: Peripheral pulses 2+ throughout GI Inspection: Yes normal to inspection Palpation (GI): Soft to palpation Skin General skin exam: no rashes or lesions noted Neuro General: patient oriented x3 Extrem Other: varicose veins of lower extremities, trace edema Psych Appearance: grossly normal Mental Status: mental status grossly normal Speech and movement: Normal speech and movement present Office Procedures EKG Details: EKG today atrial fibrillation with PVCs or aberranty conducted complexes. 94 bpm. QTc 470ms [id number], Complete Assessment & Plan Assessment & Plan (1) Chronic systolic heart failure: Code(s): I50.22 - Chronic systolic (congestive) heart failure (2) H/O mitral valve replacement with mechanical valve: Code(s): Z95.2 - Presence of prosthetic heart valve (3) Persistent atrial fibrillation: Code(s): I48.19 - Other persistent atrial fibrillation Plan Patient has trace edema on legs - advised to continue with lasix dosing from [facility] and get repeat lab work in a few days. Will call with results. Trace edema in bilateral legs - daily weight monitoring and salt avoidance recommended. in re gards to her care. PT informed. Last echo showed ejection fration at 25-30% and mechanical mitral valve working normally. Patients daughter is going to discuss the amiodarone with the patient at home and let us know what they decide. Patient advised to call if she gains weight, becomes SOB, or she can seek ED care/use consumer electronic retail specialist-provider. Coding Level of Care Code Est Pt Level 3 (69006) Diagnoses Chronic systolic heart failure I50.22 H/O mitral valve replacement with mechanical valve Z95.2 Persistent atrial fibrillation I48.19 CPT Codes EKG - CPT: 96435-[id number], Complete ([id number])
== END 2023-03-01 13:55 | disposition home or self-care (01) ==
PROVIDERS: PCP Emergency Medicine; Visit Provider Nurse Practitioner
DX: I50.22 Chronic systolic (congestive) heart failure (principal); Z95.2 Presence of prosthetic heart valve; I48.19 Other persistent atrial fibrillation
CPT/HCPCS: 93010; 99213

== ENCOUNTER → 2023-03-01 12:50 | Outpatient (BNVA) | payer OTHER, SELFPAY | PROVIDERS: PCP Emergency Medicine; Visit Provider Nurse Practitioner | DX: I35.0 Nonrheumatic aortic (valve) stenosis (principal); I50.22 Chronic systolic (congestive) heart failure; I48.19 Other persistent atrial fibrillation; I36.1 Nonrheumatic tricuspid (valve) insufficiency; Z95.2 Presence of prosthetic heart valve | CPT/HCPCS: 93005; 99212 ==

== ENCOUNTER 2023-03-06 09:04 | Outpatient (REF) | payer OTHER, SELFPAY ==
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
[2023-03-06 09:45] LABS: B Type Natriuretic Peptide 645 pg/mL (<100)
[2023-03-06 10:06] LABS: Anion Gap 12 (12-20); Blood Urea Nitrogen 26 mg/dL (9-16); Calcium 9.8 mg/dL (8.4-10.2); Carbon Dioxide 29 mmol/L (22-29); Chloride 105 mmol/L (96-108); Estimated Glomerular Filt Rate 52; Glucose Random 112 mg/dL (60-115); Potassium 3.6 mmol/L (3.3-5.1); Sodium 142 mmol/L (135-145)
== END 2023-03-06 09:05 | disposition home or self-care (01) ==
LOC: HO.LAB 09:04
PROVIDERS: Absent Provider Physician Assistant; PCP Internal Medicine; Visit Provider Nurse Practitioner
DX: I50.22 Chronic systolic (congestive) heart failure (principal); M25.512 Pain in left shoulder
CPT/HCPCS: 36415; 73030; 80048; 83880

== ENCOUNTER 2023-03-10 05:24 | Outpatient (REF) | payer OTHER, SELFPAY ==
--- NOTE | ~2023-03-10 | XR_ITS ---
EXAMINATION: XR SHOULDER, LEFT CLINICAL INFORMATION: Pain. COMPARISON: Prior radiographs, most recently 03/06/2023. TECHNIQUE: AP neutral and scapular Y views of the left shoulder are submitted. FINDINGS: There is bony demineralization. The glenohumeral joint is intact. There is a mildly impacted, displaced fracture of the surgical neck of the proximal left humerus. There is associated callus formation. The acromioclavicular and coracoclavicular intervals are normal. There is mild osteoarthritic change of the acromioclavicular joint. No fracture or dislocation is seen. There is no soft tissue calcification or foreign body. No left pneumothorax is seen. There has been a prior median sternotomy. XR/XR shoulder LT min 2V IMPRESSION: There is stable alignment of a mildly displaced and impacted left humeral neck fracture. There is good callus formation.
== END 2023-03-10 05:25 | disposition home or self-care (01) ==
LOC: HO.HOSX 05:24
PROVIDERS: Visit Provider Physician Assistant
DX: S42.252D Displaced fracture of greater tuberosity of left humerus, subsequent encounter for fracture with routine healing (principal)
CPT/HCPCS: 73030; 99212

== ENCOUNTER 2023-03-10 08:38 | Outpatient (AMB) | payer OTHER, SELFPAY ==
[2023-03-10 08:43] VITALS: BMI 23.0
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
== END 2023-03-10 10:23 | disposition home or self-care (01) ==
PROVIDERS: PCP Emergency Medicine; Visit Provider Physician Assistant
DX: S42.252A Displaced fracture of greater tuberosity of left humerus, initial encounter for closed fracture (principal); S42.202A Unspecified fracture of upper end of left humerus, initial encounter for closed fracture
CPT/HCPCS: 99214

== ENCOUNTER 2023-03-15 09:31 | Outpatient (AMB) | payer OTHER, SELFPAY ==
--- NOTE | 2023-03-15 10:40 | AM.OFFVISNUR ---
Intake Intake Visit Reasons: EKG [employer] Supervisor Required: No Accompanied by: Self / Same As Patient Allergies lisinopril [LISINOPRIL] Allergy (Severe, Verified 03/15/23 10:45) ANGIOEDEMA morphine [MORPHINE] Allergy (Severe, Verified 03/15/23 10:45) ANAPHYLAXIS penicillin V Allergy (Intermediate, Verified 03/15/23 10:45) Itching cefaclor [From CECLOR] Allergy (Unknown, Verified 03/15/23 10:45) HIVES ciprofloxacin Allergy (Unknown, Verified 03/15/23 10:45) itchy codeine Allergy (Unknown, Verified 03/15/23 10:45) HIVES erythromycin base Allergy (Unknown, Verified 03/15/23 10:45) HIVES gentamicin Allergy (Unknown, Verified 03/15/23 10:45) HIVES methylprednisolone Allergy (Unknown, Verified 03/15/23 10:45) Unknown nitrofurantoin Allergy (Unknown, Verified 03/15/23 10:45) Unknown olmesartan [Benicar] Allergy (Unknown, Verified 03/15/23 10:45) Unknown Penicillins Allergy (Unknown, Verified 03/15/23 10:45) HIVES Sulfa (Sulfonamide Antibiotics) Allergy (Unknown, Verified 03/15/23 10:45) HIVES sulfamethoxazole [From BACTRIM] Allergy (Unknown, Verified 03/15/23 10:45) HIVES trimethoprim [From BACTRIM] Allergy (Unknown, Verified 03/15/23 10:45) HIVES hydromorphone [From Dilaudid] Adverse Reaction (Verified 03/15/23 10:45) Shakiness odansetron Allergy (Severe, Uncoded 03/15/23 10:45) Hives Metoprolol Succinate Allergy (Intermediate, Uncoded 03/15/23 10:45) Hives celcor Allergy (Unknown, Uncoded 03/15/23 10:45) itchy Gentamicin in Saline Allergy (Unknown, Uncoded 03/15/23 10:45) hives Gentamicin Sulfate Allergy (Unknown, Uncoded 03/15/23 10:45) hives Latex Allergy (Unknown, Uncoded 03/15/23 10:45) Itching latex Allergy (Unknown, Uncoded 03/15/23 10:45) Itching sulfonamides Allergy (Unknown, Uncoded 08/30/23 10:45) Unknown vioxx Allergy (Unknown, Uncoded 03/15/23 10:45) Itching Bicitra Adverse Reaction (Unknown, Uncoded 03/15/23 10:45) unknown Nursing Note Patient was seen in office for EKG. Started Amiodarone 1 week ago at 200mg BID. Pt reports doing well on new medication only side effect has been headaches but she states she is able to tolerate them. She denies palpitations or heart racing sensation. She is very happy with the Amiodarone. EKG shows auto reading of A-fib w/m PVCs and heart rate of 73BPM. EKG was reviewed by Evelyn New NP. Pt advised to continue Amiodarone at 200mg BID for 1 more week and then will decrease to 200mg QD. Pt verbalized understanding. Office Procedures EKG [id number], Complete Coding Diagnoses CPT Codes EKG - CPT: 33137-[id number], Complete ([id number])
== END 2023-03-15 11:07 | disposition home or self-care (01) ==
PROVIDERS: PCP Internal Medicine; Referring Provider Internal Medicine; Visit Provider Internal Medicine
DX: I45.81 Long QT syndrome (principal)
CPT/HCPCS: 93010

== ENCOUNTER → 2023-03-15 09:31 | Outpatient (BNVA) | payer OTHER, SELFPAY | PROVIDERS: PCP Internal Medicine; Referring Provider Internal Medicine; Visit Provider Internal Medicine | DX: I48.91 Unspecified atrial fibrillation (principal); I49.3 Ventricular premature depolarization; Z79.899 Other long term (current) drug therapy | CPT/HCPCS: 93005 ==

== ENCOUNTER 2023-05-18 10:45 | Outpatient (REF) | payer OTHER, SELFPAY | END 2023-05-18 10:46 | disposition home or self-care (01) | LOC: HO.HOSX 10:45 | PROVIDERS: Visit Provider Physician Assistant | DX: Z13.89 Encounter for screening for other disorder (principal) ==

== ENCOUNTER 2023-05-23 09:00 | Outpatient (RCR) | payer OTHER, SELFPAY ==
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
--- NOTE | 2023-05-30 09:20 | MHC.PT.DC ---
[facility] [place] Office [place] Office [place] Office [address]agat [address] [phone] F: [phone] F: [phone] F: [phone] F: [phone] Physical Therapy Discharge Report Diagnosis: This is a 63 yo female presenting to skilled PT with a scipt for closed fx of L proximal humerus. Date of Surgery: Date of Evaluation: 03/16/23 Date of Discharge: 05/30/23 Treatments to Date: 9 Cancellations to Date: 0 No Shows to Date: 0 Discharge Status: Achieved Goals Improved Function Independent with HEP Patient Elected to Stop Discharge Summary: Patient improved ROM, strength, pain and function. She has a sufficient HEP to continue on her own. She called and felt ready for DC. DC to HEP Electronically signed by: Louann Rogers, PT Please sign and return to therapist. Thank you for your referral.
== END 2023-05-30 09:20 | disposition home or self-care (01) ==
LOC: HO.PTCHIC 09:00
PROVIDERS: PCP Internal Medicine; Visit Provider Physician Assistant
DX: S42.202D Unspecified fracture of upper end of left humerus, subsequent encounter for fracture with routine healing (principal)
CPT/HCPCS: 97110; 97140; 97162

== ENCOUNTER 2023-06-14 09:41 | Inpatient (IN) | payer OTHER, SELFPAY ==
[2023-06-14] VITALS (8 sets, daily range): BP systolic 118–156; BP diastolic 46–97; PULSE 64–124; RESP 16–25; TEMP 36.3–38.1; O2SAT 93–97; BMI 22.0
--- NOTE | ~2023-06-14 | XR_ITS ---
EXAMINATION: XR CHEST CLINICAL INFORMATION: Dyspnea COMPARISON: 12/08/2017. TECHNIQUE: Frontal view of the chest was obtained. FINDINGS: The heart appears enlarged. Port catheter is in position. Status post median sternotomy. There is some increased prominence of pulmonary vascularity with ill-defined margins. There are some interstitial lines seen toward the bases. Pedicular to the pleural margin. Interstitial edema is considered. There is atelectatic change toward the left base and small blunting in the left costophrenic angle. There appears to be an old posttraumatic deformity of the proximal left humerus. XR/XR chest 1V IMPRESSION: X-ray findings suspicious for underlying pulmonary vascular congestion and interstitial edema toward the bases. Basilar atelectatic changes on the left. Status post median sternotomy.
--- NOTE | 2023-06-14 09:43 | ECG_ITS ---
Test Reason : OVERDOSE Blood Pressure : / mmHG Vent. Rate : 108 BPM Atrial Rate : 000 BPM P-R Int : 000 ms QRS Dur : 110 ms QT Int : 312 ms P-R-T Axes : 000 087 -57 degrees QTc Int : 418 ms Atrial fibrillation with rapid ventricular response Intra-ventricular conduction delay ST & T wave abnormality, consider inferolateral ischemia Abnormal ECG When compared with ECG of 30-DEC-2022 02:12, QT has shortened Heart rate has increased Referred By: Jewell Mariscal Electronically Signed By:LORRIE BURDICK MD
[2023-06-14 11:04] LABS: MANUAL DIFF FLAG NO
[2023-06-14 11:07] LABS: Basophils Absolute Auto 0.1 X10*3/uL (0.0-0.2); Basophils Percent Auto 0.8 % (0-2); Eosinophils Percent Auto 0.5 % (0-4); Hematocrit 31.7 % (37.0-47.0); Hemoglobin 10.4 g/dl (12.0-16.0); Imm Gran Abs Auto 0.07 X10*3/uL (0.00-0.03); Imm Gran Pct Auto 1.2 % (0.0-0.4); Lymphocytes Absolute Auto 0.2 X10*3/uL (1.2-4.9); Lymphocytes Percent Auto 3.9 % (20-40); Mean Corpuscular HGB Conc 32.8 g/dl (31.0-35.0); Mean Corpuscular Hemoglobin 28.8 pg (27.0-33.0); Mean Corpuscular Volume 87.8 fL (80.0-98.0); Mean Platelet Volume 9.4 fL (9.4-12.3); Monocytes Absolute Auto 0.4 X10*3/uL (0.1-1.2); Monocytes Percent Auto 7.4 % (2-11); Neutrophils Absolute Auto 5.1 x10*3/uL (2.0-8.3); Neutrophils Percent Auto 86.2 % (45-73); Platelet Count 135 X10*3/uL (160-400); Red Blood Count 3.61 X10*6/uL (4.20-5.50); Red Cell Distribution Width 14.8 % (11.0-16.0)
[2023-06-14 11:12] LABS: INTERNATIONAL NORM RATIO 2.8 (0.9-1.1); Prothrombin Time 34.7 SEC (11.1-13.3)
[2023-06-14 11:25] LABS: Alanine Aminotransferase 19 U/L (0-31); Albumin Level 4.2 g/dL (3.5-5.0); Alkaline Phosphatase 105 U/L (39-117); Anion Gap 12 (12-20); Aspartate Amino Transferase 19 U/L (5-31); Bilirubin Direct 0.4 mg/dL (0.0-0.5); Bilirubin Total 1.3 mg/dL (0.0-1.0); Blood Urea Nitrogen 30 mg/dL (9-16); Carbon Dioxide 26 mmol/L (22-29); Chloride 102 mmol/L (96-108); Creatinine Clr Calc Pharmacy 37.4; Estimated Glomerular Filt Rate 43; Glucose Random 149 mg/dL (60-115); Magnesium 1.9 mg/dL (1.6-2.6); Potassium 4.1 mmol/L (3.3-5.1); Sodium 136 mmol/L (135-145); Total Protein 6.8 g/dL (6.5-8.0)
[2023-06-14 11:28] LABS: Acetaminophen LAB < 3 mcg/mL (<30); Salicylate < 5.0 mg/dL (15-30)
--- NOTE | 2023-06-14 12:05 | ED_ITS ---
HPI - Overdose General Chief Complaint: General Medical Stated Complaint: Referred by PCP - took wrong meds Time Seen by Provider: 06/14/23 11:52 Source: patient, old records reviewed and other (PCP) Mode of arrival: ambulatory Limitations: no limitations History of Present Illness HPI Narrative: 63 yo female with PMH of PAF on coumadin, CHF, MVR replacement with mechanical valve, here with c/o ingestion of husbands medications this AM at 830 in error as she normally dispenses and got them mixed up. escitalopram 25mg risperidone 5mg ativan 0.5mg haldol 1mg She did not take her own home medications. She now c/o dyspnea and her asthma acting up though wheezing started yesterday. MD complaint: accidental overdose Onset (ago): hour(s) (830AM today ) Timing confirmed by: family member Context: Accidental Overdose: medication error Associated symptoms: shortness of breath Treatments Prior to Arrival: none Related Data Home Medications Medication Instructions Recorded Confirmed febuxostat 80 mg tablet 80 mg PO DAILY 11/16/22 03/01/23 ferrous sulfate 325 mg (65 mg 325 mg PO BID 11/16/22 01/26/23 iron) tablet,delayed release sennosides 8.6 mg capsule (senna) 8.6 mg PO BID 11/16/22 01/26/23 sitagliptin phosphate 100 mg 100 mg PO DAILY 11/16/22 03/01/23 tablet (Januvia) warfarin 2.5 mg tablet 2.5 - 5 mg PO DAILY 11/16/22 03/01/23 cetirizine 10 mg capsule (All Day 10 mg PO DAILY PRN 11/22/22 03/01/23 Allergy (cetirizine)) gabapentin 100 mg capsule 100 mg PO TID 11/22/22 01/26/23 pramipexole 0.25 mg tablet 0.5 mg PO DAILY 11/22/22 01/26/23 sennosides 8.6 mg capsule (senna) 8.6 mg PO DAILY PRN constipation 11/22/22 01/26/23 mirtazapine 15 mg tablet 15 mg PO BEDTIME 01/26/23 01/26/23 ondansetron 4 mg disintegrating 4 mg PO Q8H 01/26/23 01/26/23 tablet quetiapine 25 mg tablet 25 mg PO BEDTIME 01/26/23 01/26/23 ferrous sulfate 325 mg (65 mg 325 mg PO BID 03/01/23 03/01/23 iron) tablet (FeroSul) omeprazole 40 mg capsule,delayed 40 mg PO BID 03/01/23 03/01/23 release tramadol 50 mg tablet 50 mg PO Q8H PRN 03/01/23 03/01/23 omeprazole 20 mg capsule,delayed 20 mg PO BID 03/10/23 release Previous Rx's Medication Instructions Recorded sucralfate 1 gram tablet 1 g PO TID #90 tabs 12/30/22 amiodarone 200 mg tablet 200 mg PO DAILY #30 tabs 03/07/23 amiodarone 200 mg tablet 400 mg (2 x 200 mg) PO BID 14 days 03/07/23 #56 tabs spironolactone 25 mg tablet 25 mg PO BID #60 tabs 04/12/23 furosemide 20 mg tablet 20 mg PO TID #90 tabs 05/11/23 Allergies Allergy/AdvReac Type Severity Reaction Status Date / Time lisinopril [LISINOPRIL] Allergy Severe ANGIOEDEMA Verified 06/14/23 09:53 morphine [MORPHINE] Allergy Severe ANAPHYLAXIS Verified 06/14/23 09:53 penicillin V Allergy Intermediate Itching Verified 06/14/23 09:53 cefaclor [From CECLOR] Allergy Unknown HIVES Verified 06/14/23 09:53 ciprofloxacin Allergy Unknown itchy Verified 06/14/23 09:53 codeine Allergy Unknown HIVES Verified 06/14/23 09:53 methylprednisolone Allergy Unknown Unknown Verified 06/14/23 09:53 nitrofurantoin Allergy Unknown Unknown Verified 06/14/23 09:53 olmesartan [Benicar] Allergy Unknown Unknown Verified 06/14/23 09:53 Penicillins Allergy Unknown HIVES Verified 06/14/23 09:53 Sulfa (Sulfonamide Allergy Unknown HIVES Verified 06/14/23 09:53 Antibiotics) hydromorphone [From Dilaudid] AdvReac Shakiness Verified 06/14/23 09:53 odansetron Allergy Severe Hives Uncoded 06/14/23 09:53 Metoprolol Succinate Allergy Intermediate Hives Uncoded 06/14/23 09:53 celcor Allergy Unknown itchy Uncoded 06/14/23 09:53 Gentamicin in Saline Allergy Unknown hives Uncoded 06/14/23 09:53 Gentamicin Sulfate Allergy Unknown hives Uncoded 06/14/23 09:53 Latex Allergy Unknown Itching Uncoded 06/14/23 09:53 latex Allergy Unknown Itching Uncoded 06/14/23 09:53 sulfonamides Allergy Unknown Unknown Uncoded 06/14/23 09:53 vioxx Allergy Unknown Itching Uncoded 06/14/23 09:53 Bicitra AdvReac Unknown unknown Uncoded 06/14/23 09:53 Review of Systems 2 Review of Systems: Constitutional : No Fever, No Chills ENT/Mouth : No Hoarseness, No sore throat, No Rhinorrhea Eyes: No Redness, No Discharge, No Vision Changes Cardiovascular : No Chest Pain, positive SOB, positive Dyspnea on Exertion, No Edema Respiratory : positive Cough, No Sputum, positive Wheezing, Gastrointestinal : No Nausea, No Vomiting, No Diarrhea, No abdominal Pain Genitourinary : No Dysuria, No Hematuria Musculoskeletal : No joint pain, No Myalgias Skin : No rash Neuro : No Weakness, No Numbness, No Headache Psych : No anxiety, depression, no SI/HI Heme/Lymph: No Bruising, No Bleeding Endocrine : No Polyuria, No Polydipsia All other systems reviewed and are negative PMFSH Past Medical History Attestation statement: The following information was validated with the patient. Source: old records reviewed Medical History Tricuspid valve insufficiency, non-rheumatic Non-rheumatic aortic stenosis Persistent atrial fibrillation Surgical History H/O mitral valve replacement with mechanical valve Family History Family History Mother Heart disease Father Heart disease Diabetes Social History Social History Alcohol intake: never Patient Tobacco Use Status: Former Tobacco user Quit Date: 1990 Years Smoked: 4 +/- Smoked in Last 30 Days: No Use of substances other than those prescribed or required for medical reasons: No Advance Directives: No Advance Directives Information Provided: Yes Physical Exam 2 Vital Signs: Vital Signs: Last Vital Signs Temp 100.6 F H 06/14/23 13:02 Pulse 104 H 06/14/23 13:02 Resp 25 H 06/14/23 13:02 BP 138/58 L 06/14/23 13:02 Pulse Ox 96 06/14/23 13:02 O2 Del Method Nasal Cannula 06/14/23 13:02 O2 Flow Rate 2 06/14/23 13:02 BMI result Body Mass Index 22.0 Appearance: Alert. Oriented X3. No acute distress. anxious appearing Eyes: Pupils equal, round and reactive to light. ENT: Pharynx normal. Neck: Normal inspection. Neck supple. CVS: tachycardic and irregular heart rate and rhythm. Pulses normal. Respiratory: No respiratory distress. Breath sounds diminished Abdomen: Soft and nontender. Skin: Skin warm and dry. Normal skin color. Normal skin turgor. Extremities: No lower extremity edema. No calf ttp Neuro: Oriented X 3. No motor deficit. No sensory deficit. Course Course Course Narrative: has fever at this time infection suspected - lactic acid, cultures, empiric ceftriaxone ordered. Medications Administered Discontinued Medications Generic Name Dose Route Start Last Admin Trade Name Fabioq PRN Reason Stop Dose Admin Acetaminophen 650 mg 06/14/23 13:06 06/14/23 13:25 Acetaminophen 325 Mg Tablet PO 06/14/23 13:07 650 mg ONCE ONE Administration Albuterol Sulfate 2.5 mg/ 5 mg 06/14/23 12:27 06/14/23 12:28 Albuterol Sulfate 2.5 mg INHALE 06/14/23 12:28 5 mg ONCE ONE Administration Furosemide 40 mg 06/14/23 12:32 06/14/23 13:19 Furosemide 40 Mg/4 Ml Vial IVPUSH 06/14/23 12:33 40 mg STAT STA Administration Protocol Ceftriaxone Sodium 1 gm/ 50 mls @ 100 mls/hr 06/14/23 13:08 06/14/23 13:24 Sodium Chloride IV 06/14/23 13:37 100 mls/hr ONCE ONE Administration Medical Decision Making Medical Decision Making MDM Narrative: 63 yo female with PMH of PAF on coumadin, CHF, MVR replacement with mechanical valve, here with c/o ingestion of husbands medications this AM at 830 in error here with c/o med error but also dyspnea and asthma symptoms in rapid afib - at this time will give neb treatment obtain basic labs, possible lasix/steroids, observe and rate control if no improvement with nebs and correction of breathing. No SI this was med error she is sleepy from medications slightly - VBG ordered. Differential Diagnosis Differential Diagnoses: The differential diagnosis associated with the presentation includes asthma, COPD, afib with RVR, CHF, med error Admission/Observation Consideration of admission/observation: Escalation of care including admission/observation considered Lab Data MDM Lab Attestation statement: I reviewed the patient's lab results. 06/14/23 10:59 06/14/23 10:59 Labs: Lab Results 06/14/23 06/14/23 06/14/23 Range/Units 10:59 12:19 12:51 WBC 6.0 (4.8-10.8) X10*3/uL RBC 3.61 L (4.20-5.50) X10*6/uL Hgb 10.4 L (12.0-16.0) g/dl Hct 31.7 L (37.0-47.0) % MCV 87.8 (80.0-98.0) fL MCH 28.8 (27.0-33.0) pg MCHC 32.8 (31.0-35.0) g/dl RDW 14.8 (11.0-16.0) % Plt Count 135 L D (160-400) X10*3/uL MPV 9.4 (9.4-12.3) fL Immature Gran % (Auto) 1.2 H (0.0-0.4) % Neut % (Auto) 86.2 H (45-73) % Lymph % (Auto) 3.9 L (20-40) % [place] % (Auto) 7.4 (2-11) % Eos % (Auto) 0.5 (0-4) % Baso % (Auto) 0.8 (0-2) % Lymph # (Auto) 0.2 L (1.2-4.9) X10*3/uL [place] # (Auto) 0.4 (0.1-1.2) X10*3/uL Eos # (Auto) 0.0 (0.0-0.4) X10*3/uL Baso # (Auto) 0.1 (0.0-0.2) X10*3/uL Abs Immat Gran (auto) 0.07 H (0.00-0.03) X10*3/uL Absolute Neuts (auto) 5.1 (2.0-8.3) x10*3/uL Absolute Nucleated RBC 0.000 (0.0-0.012) X10*3/uL Nucleated RBC % (auto) 0.0 (0.0-0.2) /100WBC PT 34.7 H (11.1-13.3) SEC INR 2.8 H (0.9-1.1) VBG pH (7.32-7.43) VBG pCO2 mmHg VBG pO2 mmHg VBG HCO3 (22-26) mmol/L VBG O2 Saturation % VBG Base Excess mmol/L Sodium 136 (135-145) mmol/L Potassium 4.1 (3.3-5.1) mmol/L Chloride 102 (96-108) mmol/L Carbon Dioxide 26 (22-29) mmol/L Anion Gap 12 (12-20) BUN 30 H (9-16) mg/dL Creatinine 1.24 (0.5-1.4) mg/dL Estim Creat Clear Calc 37.4 Estimated GFR 43 Random Glucose 149 H (60-115) mg/dL Lactic Acid (0.5-2.0) mmol/L Calcium 9.0 D (8.4-10.2) mg/dL Magnesium 1.9 (1.6-2.6) mg/dL Total Bilirubin 1.3 H (0.0-1.0) mg/dL Direct Bilirubin 0.4 (0.0-0.5) mg/dL AST 19 (5-31) U/L ALT 19 (0-31) U/L Alkaline Phosphatase 105 (39-117) U/L Troponin I High Sens 26.9 H D (<3.5-17.0) ng/L B-Natriuretic Peptide 505 H (<100) pg/mL Total Protein 6.8 (6.5-8.0) g/dL Albumin 4.2 (3.5-5.0) g/dL Digoxin < 0.2 L (0.8-2.0) ng/mL Salicylates < 5.0 L (15-30) mg/dL Acetaminophen < 3 (<30) mcg/mL Influenza Type A (PCR) NEGATIVE (Negative) Influenza Type B (PCR) NEGATIVE (Negative) RSV RNA Qual (PCR) NEGATIVE (Negative) SARS-CoV-2 RNA (RT-PCR) NEGATIVE (Negative) 06/14/23 06/14/23 Range/Units 12:56 13:18 WBC (4.8-10.8) X10*3/uL RBC (4.20-5.50) X10*6/uL Hgb (12.0-16.0) g/dl Hct (37.0-47.0) % MCV (80.0-98.0) fL MCH (27.0-33.0) pg MCHC (31.0-35.0) g/dl RDW (11.0-16.0) % Plt Count (160-400) X10*3/uL MPV (9.4-12.3) fL Immature Gran % (Auto) (0.0-0.4) % Neut % (Auto) (45-73) % Lymph % (Auto) (20-40) % [place] % (Auto) (2-11) % Eos % (Auto) (0-4) % Baso % (Auto) (0-2) % Lymph # (Auto) (1.2-4.9) X10*3/uL [place] # (Auto) (0.1-1.2) X10*3/uL Eos # (Auto) (0.0-0.4) X10*3/uL Baso # (Auto) (0.0-0.2) X10*3/uL Abs Immat Gran (auto) (0.00-0.03) X10*3/uL Absolute Neuts (auto) (2.0-8.3) x10*3/uL Absolute Nucleated RBC (0.0-0.012) X10*3/uL Nucleated RBC % (auto) (0.0-0.2) /100WBC PT (11.1-13.3) SEC INR (0.9-1.1) VBG pH 7.44 H (7.32-7.43) VBG pCO2 38 mmHg VBG pO2 45 mmHg VBG HCO3 26 (22-26) mmol/L VBG O2 Saturation 78.0 % VBG Base Excess 2.5 mmol/L Sodium (135-145) mmol/L Potassium (3.3-5.1) mmol/L Chloride (96-108) mmol/L Carbon Dioxide (22-29) mmol/L Anion Gap (12-20) BUN (9-16) mg/dL Creatinine (0.5-1.4) mg/dL Estim Creat Clear Calc Estimated GFR Random Glucose (60-115) mg/dL Lactic Acid 0.6 (0.5-2.0) mmol/L Calcium (8.4-10.2) mg/dL Magnesium (1.6-2.6) mg/dL Total Bilirubin (0.0-1.0) mg/dL Direct Bilirubin (0.0-0.5) mg/dL AST (5-31) U/L ALT (0-31) U/L Alkaline Phosphatase (39-117) U/L Troponin I High Sens (<3.5-17.0) ng/L B-Natriuretic Peptide (<100) pg/mL Total Protein (6.5-8.0) g/dL Albumin (3.5-5.0) g/dL Digoxin (0.8-2.0) ng/mL Salicylates (15-30) mg/dL Acetaminophen (<30) mcg/mL Influenza Type A (PCR) (Negative) Influenza Type B (PCR) (Negative) RSV RNA Qual (PCR) (Negative) SARS-CoV-2 RNA (RT-PCR) (Negative) Independent Interpretation I performed an independent interpretation of an: EKG and Plain X-Ray Interpretation: Rate: 108 Rhythm: afib Jackson: left wide QRS complex. ST T wave : no ALYSIA, inverted T wave in II, III, aVF, V5-V6 qTC: normal prior studies: faster rate but t wave inversions present The study has been interpreted contemporaneously by me. . Radiology Impression Discussion of test interpretation with radiology: I have reviewed the radiologist's reading. Independent Historian Clinical information obtained from an independent historian. History obtained from or confirmed by: Spouse External Record Review External record reviewed: Inpatient record Critical Care Time Critical Care Time Critical Care Time: Yes Total Critical Care Time: 45 Attestation: repeat nebs, O2 supplementation for hypoxia, review of records, admission I attest to this time spent taking care of the patient Discharge Plan Discharge Clinical Impression: Acute exacerbation of chronic obstructive pulmonary disease, Acute on chronic clinical systolic heart failure, Atrial fibrillation with rapid ventricular response Accidental drug ingestion Qualifiers: Encounter type: initial encounter Qualified Code(s): T50.901A - Poisoning by unspecified drugs, medicaments and biological substances, accidental (unintentional), initial encounter Fever Qualifiers: Fever type: unspecified Qualified Code(s): R50.9 - Fever, unspecified Patient Disposition: Admitted As Inpatient Prescriptions: No Action senna 8.6 mg capsule 8.6 mg PO DAILY PRN (Reason: constipation) Rx Instructions: Take 2 tablets PRN constipation pramipexole 0.25 mg tablet 0.5 mg PO DAILY Rx Instructions: Take 2 tablets daily for Restless Leg Syndrome All Day Allergy (cetirizine) 10 mg capsule 10 mg PO DAILY PRN gabapentin 100 mg capsule 100 mg PO TID Rx Instructions: Neuropathy amiodarone 200 mg tablet 400 mg PO BID 14 Days Qty: 56 0RF Rx Instructions: START FIRST: Take two tablets twice a day for 14 days Script 1 of 2 amiodarone 200 mg tablet 200 mg PO DAILY Qty: 30 3RF Rx Instructions: Once you completed the 14 days start this script : one tab once a day. Script 2 of 2 spironolactone 25 mg tablet 25 mg PO BID Qty: 60 5RF furosemide 20 mg tablet 20 mg PO TID Qty: 90 5RF Rx Instructions: Call office immediately for weight gain, swelling, shortness of breath so we can adjust your dose. sucralfate 1 gram tablet 1 g PO TID Qty: 90 0RF Rx Instructions: Take it 1 hour before meals quetiapine 25 mg tablet 25 mg PO BEDTIME ondansetron 4 mg tablet,disintegrating 4 mg PO Q8H mirtazapine 15 mg tablet 15 mg PO BEDTIME omeprazole 20 mg capsule,delayed release(DR/EC) 20 mg PO BID warfarin 2.5 mg tablet 2.5 - 5 mg PO DAILY Januvia 100 mg tablet 100 mg PO DAILY senna 8.6 mg capsule 8.6 mg PO BID febuxostat 80 mg tablet 80 mg PO DAILY ferrous sulfate 325 mg (65 mg iron) tablet,delayed release (DR/EC) 325 mg PO BID ferrous sulfate [FeroSul] 325 mg (65 mg iron) tablet 325 mg PO BID tramadol 50 mg tablet 50 mg PO Q8H PRN omeprazole 40 mg capsule,delayed release(DR/EC) 40 mg PO BID
[2023-06-14] MEDS: Albuterol Sulfate 2.5 MG, Albuterol Sulfate (0.083%) 2.5 MG 5 MG INHALE (12:28)
[2023-06-14 12:53] LABS: B Type Natriuretic Peptide 505 pg/mL (<100)
[2023-06-14 13:01] LABS: Troponin-I High Sensitivity 26.9 ng/L (<3.5-17.0)
[2023-06-14 13:02] LABS: Venous Blood Gas Refer to POC result
[2023-06-14 13:02] LABS: VBG Base Excess 2.5 mmol/L; VBG HCO3 26 mmol/L (22-26); VBG pCO2 38 mmHg; VBG pH 7.44 (7.32-7.43); VBG pO2 45 mmHg
[2023-06-14 13:12] LABS: Influenza A PCR NEGATIVE (Negative); Influenza B PCR NEGATIVE (Negative); Resp Syncy Virus RNA Qual PCR NEGATIVE (Negative); SARS COV2 PCR INHOUSE NEGATIVE (Negative)
[2023-06-14] MEDS: Furosemide 40 MG/4 ML VIAL IVPUSH ×2 (13:19→18:13)
[2023-06-14] MEDS: cefTRIAXone sodium 1 GM in 0.9 % Sodium Chloride 50 ML IV (13:24)
[2023-06-14] MEDS: Acetaminophen 325 MG TABLET 650 MG PO ×2 (13:25→22:16)
--- NOTE | 2023-06-14 13:33 | PC.NURSE ---
pt a&o x4, pleasant, calm, and cooperative. chest x-ray completed, port accessed. labs/cultures drawn. pt febrile. medicated per sep. rr even/unlabored. call robb within reach. at bedside. plan of care ongoing. poison control not contacted. provider not concerned about medications pt accidentally ingested.
[2023-06-14 13:35] LABS: Lactic Acid 0.6 mmol/L (0.5-2.0)
[2023-06-14 13:52] LABS: Digoxin < 0.2 ng/mL (0.8-2.0)
[2023-06-14 14:16] LABS: Appearance Urine Clear; Color Urine Yellow; Glucose Urine UA Negative (Negative); Leukocyte Esterase Urine Negative (Negative); Nitrite Urine Negative (Negative); PH 5.5 (5.0-9.0); Urine Blood Negative (Negative); Urine Ketones Negative (Negative); Urine Protein Negative (Neg-Trace)
[2023-06-14] MEDS: Doxycycline Hyclate 100 MG in 0.9 % Sodium Chloride 250 ML 166.67 MG IV (14:51)
[2023-06-14] MEDS: Benzonatate 100 MG CAPSULE PO (14:59)
--- NOTE | 2023-06-14 15:05 | PHA.MEDREC ---
Pharmacy Consult ? Medication Reconciliation Pharmacy has completed the medication reconciliation. Spoke to patient who knew all medications
--- NOTE | 2023-06-14 15:08 | PC.NURSE ---
pt medicated per sep for cough.
--- NOTE | 2023-06-14 16:21 | P.HPHOSP_ITS ---
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 The patient reports coughing and having difficulties breathing for 3 days that has been worsening overall. this morning she mistakenly took her medications including escitalopram 25mg, risperidone 5mg, ativan 0.5mg and haldol 1mg. reporting fever, chills, cough, dyspnea w exertion, but denies No chest pain, palpitations, nausea, vomiting, diarrhea or urinary symptoms. In ED found to be Afib w RvR and fever which improved with initial treatment in ED. requiring O2 supplement. Will be admitted for further eval and management Review of Systems 2 Review of Systems: reporting fever, chills or weakness No chest pain, palpitation Having shortness of breath or coughing No abdominal pain, nausea or vomiting No urinary symptoms No any rash or wounds [facility] Medical History Tricuspid valve insufficiency, non-rheumatic Non-rheumatic aortic stenosis Persistent atrial fibrillation Family History Mother Heart disease Father Heart disease Diabetes Surgical History H/O mitral valve replacement with mechanical valve Social History Alcohol intake: never Patient Tobacco Use Status: Former Tobacco user Quit Date: 1990 Years Smoked: 4 +/- Smoked in Last 30 Days: No Use of substances other than those prescribed or required for medical reasons: No Advance Directives: No Advance Directives Information Provided: Yes Meds Allergies Allergy/AdvReac Type Severity Reaction Status Date / Time lisinopril [LISINOPRIL] Allergy Severe ANGIOEDEMA Verified 06/14/23 09:53 morphine [MORPHINE] Allergy Severe ANAPHYLAXIS Verified 06/14/23 09:53 penicillin V Allergy Intermediate Itching Verified 06/14/23 09:53 cefaclor [From CECLOR] Allergy Unknown HIVES Verified 06/14/23 09:53 ciprofloxacin Allergy Unknown itchy Verified 06/14/23 09:53 codeine Allergy Unknown HIVES Verified 06/14/23 09:53 methylprednisolone Allergy Unknown Unknown Verified 06/14/23 09:53 nitrofurantoin Allergy Unknown Unknown Verified 06/14/23 09:53 olmesartan [Benicar] Allergy Unknown Unknown Verified 06/14/23 09:53 Penicillins Allergy Unknown HIVES Verified 06/14/23 09:53 Sulfa (Sulfonamide Allergy Unknown HIVES Verified 06/14/23 09:53 Antibiotics) hydromorphone [From Dilaudid] AdvReac Shakiness Verified 06/14/23 09:53 odansetron Allergy Severe Hives Uncoded 06/14/23 09:53 Metoprolol Succinate Allergy Intermediate Hives Uncoded 06/14/23 09:53 celcor Allergy Unknown itchy Uncoded 06/14/23 09:53 Gentamicin in Saline Allergy Unknown hives Uncoded 06/14/23 09:53 Gentamicin Sulfate Allergy Unknown hives Uncoded 06/14/23 09:53 Latex Allergy Unknown Itching Uncoded 06/14/23 09:53 latex Allergy Unknown Itching Uncoded 06/14/23 09:53 sulfonamides Allergy Unknown Unknown Uncoded 06/14/23 09:53 vioxx Allergy Unknown Itching Uncoded 06/14/23 09:53 Bicitra AdvReac Unknown unknown Uncoded 06/14/23 09:53 Home Medications Medication Instructions Recorded Confirmed Last Taken Type sitagliptin phosphate 100 mg 100 mg PO DAILY 11/16/22 06/14/23 06/13/23 History tablet (Januvia) warfarin 2.5 mg tablet 2.5 mg PO DAILY 11/16/22 06/14/23 06/13/23 History ondansetron 4 mg disintegrating 4 mg PO Q8H PRN Nausea 01/26/23 06/14/23 06/13/23 History tablet omeprazole 40 mg capsule,delayed 40 mg PO BID 03/01/23 06/14/23 06/13/23 History release beclomethasone diprop (AQ) 42 mcg 1 spray intranasal BID 06/14/23 06/14/23 06/13/23 History (0.042 %) nasal spray (Beconase AQ) ferrous sulfate 325 mg (65 mg 325 mg PO BID 06/14/23 06/14/23 06/13/23 History iron) tablet,delayed release gabapentin 300 mg capsule 300 mg PO BID 06/14/23 06/14/23 06/13/23 History sennosides 8.6 mg tablet (senna) 17.2 mg PO DAILY PRN constipation 06/14/23 06/14/23 06/13/23 History torsemide 20 mg tablet 40 mg PO BID 06/14/23 06/14/23 06/13/23 History Physical Exam 2 Vital Signs and Narrative: Vital Signs: Last Vital Signs Temp 99.8 F 06/14/23 14:47 Pulse 102 H 06/14/23 14:47 Resp 20 06/14/23 14:47 BP 118/46 L 06/14/23 14:47 Pulse Ox 95 06/14/23 14:47 O2 Del Method Nasal Cannula 06/14/23 14:47 O2 Flow Rate 2 06/14/23 14:47 BMI result Body Mass Index 22.0 Const: Other: Constitutional : Awake, interactive, looks weak and tired, not in distress Neck : Normal inspection, Supple Cardiovascular : RRR, no JVP, no lower extremity edema Respiratory : good bilateral air entry, basal fine crackles left side, expiratory wheezes Gastrointestinal: soft, lax, Normal bowel sounds, Non tender Skin : Warm, Dry Neurological : Alert & oriented x3, No focal deficit Results Labs 06/14/23 10:59 06/14/23 10:59 Labs: Laboratory Results - last 24 hr 06/14/23 06/14/23 06/14/23 10:59 12:19 12:51 MCV 87.8 MCH 28.8 MCHC 32.8 RDW 14.8 Plt Count 135 L D MPV 9.4 Immature Gran % (Auto) 1.2 H Neut % (Auto) 86.2 H Lymph % (Auto) 3.9 L [place] % (Auto) 7.4 Eos % (Auto) 0.5 Baso % (Auto) 0.8 Lymph # (Auto) 0.2 L [place] # (Auto) 0.4 Eos # (Auto) 0.0 Baso # (Auto) 0.1 Abs Immat Gran (auto) 0.07 H Absolute Neuts (auto) 5.1 Absolute Nucleated RBC 0.000 Nucleated RBC % (auto) 0.0 PT 34.7 H INR 2.8 H VBG pH VBG pCO2 VBG pO2 VBG HCO3 VBG O2 Saturation VBG Base Excess Anion Gap 12 Estim Creat Clear Calc 37.4 Estimated GFR 43 Random Glucose 149 H Lactic Acid Calcium 9.0 D Magnesium 1.9 Total Bilirubin 1.3 H Direct Bilirubin 0.4 AST 19 ALT 19 Alkaline Phosphatase 105 B-Natriuretic Peptide 505 H Total Protein 6.8 Albumin 4.2 Urine Color Urine Appearance Urine pH Ur Specific [place] Urine Protein Urine Glucose (UA) Urine Ketones Urine Blood Urine Nitrite Ur Leukocyte Esterase Digoxin < 0.2 L Salicylates < 5.0 L Acetaminophen < 3 Influenza Type A (PCR) NEGATIVE Influenza Type B (PCR) NEGATIVE RSV RNA Qual (PCR) NEGATIVE SARS-CoV-2 RNA (RT-PCR) NEGATIVE 06/14/23 06/14/23 06/14/23 12:56 13:18 14:08 MCV MCH MCHC RDW Plt Count MPV Immature Gran % (Auto) Neut % (Auto) Lymph % (Auto) [place] % (Auto) Eos % (Auto) Baso % (Auto) Lymph # (Auto) [place] # (Auto) Eos # (Auto) Baso # (Auto) Abs Immat Gran (auto) Absolute Neuts (auto) Absolute Nucleated RBC Nucleated RBC % (auto) PT INR VBG pH 7.44 H VBG pCO2 38 VBG pO2 45 VBG HCO3 26 VBG O2 Saturation 78.0 VBG Base Excess 2.5 Anion Gap Estim Creat Clear Calc Estimated GFR Random Glucose Lactic Acid 0.6 Calcium Magnesium Total Bilirubin Direct Bilirubin AST ALT Alkaline Phosphatase B-Natriuretic Peptide Total Protein Albumin Urine Color Yellow Urine Appearance Clear Urine pH 5.5 Ur Specific [place] 1.010 Urine Protein Negative Urine Glucose (UA) Negative Urine Ketones Negative Urine Blood Negative Urine Nitrite Negative Ur Leukocyte Esterase Negative Digoxin Salicylates Acetaminophen Influenza Type A (PCR) Influenza Type B (PCR) RSV RNA Qual (PCR) SARS-CoV-2 RNA (RT-PCR) Imaging Radiologist's Impressions: Impressions Chest X-Ray 06/14/23 12:38 IMPRESSION: X-ray findings suspicious for underlying pulmonary vascular congestion and interstitial edema toward the bases. Basilar atelectatic changes on the left. Status post median sternotomy. 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 # Sepsis 2/2 LLL Pneumonia and COPD exacerbation Has fever, Tachycardia and source of infection Normal lactate CXR LLL aterlactasis w fluid overload Pending cultures IV Steroids IV Doxycycline and Ceftriaxone Xopenex nebs Wean O2 down as tolerated # Acute on chronic systolic CHF exacerbation Elevated BNP with CXR overload IV lasix 40mg BID I\O # Afib rate better controlled Continue amiodarone and Warfarin follow INR # GERD Omeprazole # DM II Diabetic diet SSI DVT PPx Warfarin The patient will likely need 2 overnight hospital stay for treatment of sepsis on IV Abx pending final cultures Quality Stroke Does the patient have a stroke diagnosis?: No VTE Prior VTE?: No VTE Risk Level:: Medical - moderate - high VTE Device Contraindication: Treatment Not Indicated VTE Drug Contraindication: N/A - Med Ordered
--- NOTE | 2023-06-14 17:36 | PC.NURSE ---
pt output 400ml total for urine and one large bowel movement. using bedside commode. pt refusing dinner tray. sts she doesn't eat turkey. pt left with diabetic pudding, milk, and provided with renetta crackers per pt request. sitting at side of bed. call robb within reach.
[2023-06-14] MEDS: Omeprazole 40 MG CAPSULE.DR PO (18:13)
[2023-06-14 18:14] LABS: Glucose, Whole Blood 156 mg/dL (60-115)
[2023-06-14] MEDS: Insulin Lispro 100 UNIT/ML 3 ML VIAL SUBCUT (18:14)
--- NOTE | 2023-06-14 18:23 | PC.NURSE ---
pt using commode w/o issue- x1 stdby assisted. declined red socks. wearing sneakers. talks well. ate dinner.
[2023-06-14] MEDS: levalbuterol HCL 1.25 MG/3 ML VIAL.NEB INHALE ×2 (19:21→23:55)
--- NOTE | 2023-06-14 20:59 | MHC.EDTECH ---
Patient given gingerale and rice cakes
[2023-06-14 21:48] LABS: Glucose, Whole Blood 144 mg/dL (60-115)
[2023-06-14] MEDS: Ferrous Sulfate 324 MG TABLET.DR PO (22:15)
[2023-06-14] MEDS: guaiFEN/Codeine SF 200/20/10ML 10 ML LIQUID 5 ML PO (22:15)
[2023-06-14] MEDS: Gabapentin 300 MG CAPSULE PO (22:16)
[2023-06-14] MEDS: Spironolactone 25 MG TABLET PO (22:16)
[2023-06-15] VITALS (9 sets, daily range): BP systolic 106–133; BP diastolic 56–73; PULSE 80–95; RESP 16–20; TEMP 36.2–36.8; O2SAT 93–96; BMI 23.4
[2023-06-15] MEDS: Doxycycline Hyclate 100 MG in 0.9 % Sodium Chloride 250 ML 166.67 MG IV ×2 (01:09→12:40)
[2023-06-15] MEDS: guaiFEN/Codeine SF 200/20/10ML 10 ML LIQUID 5 ML PO ×2 (02:33→07:29)
--- NOTE | 2023-06-15 02:43 | PC.NURSE ---
Encinas previously removed. Due to void around midnight. Patient is incontinent of stool. No sign of voiding urine. Bladder scanned 109 mL urine volume. Provider notified. No interventions. Plan of care ongoing.
[2023-06-15] MEDS: Omeprazole 40 MG CAPSULE.DR PO ×2 (06:03→16:43)
--- NOTE | 2023-06-15 07:44 | MHC.CM.PN ---
IMM 06/15/23, EMR REVIEWED, PT ADMITTED W/SOB, PT REPORTS SHE LIVES W/HER TY, IS INDEP W/ALL CARE, HAS GLUCOMETER AND CHECKS BS QAM AND NO INSULIN, A CANE SHE USES ON OCCASION AND A GRAB BAR IN SHOWER, PT DENIES AN HOME SERVICES AND IS NOT HOMEBOUND. PT REPORTS GOAL FOR DC IS HOME AND PT AGREEABLE TO [facility] IF RECOMMENDED. PT VERIFIES PCP ON FILE DR. COOL IS CORRECT, J&J X1 AND PFIZER X2 AND PT REPORTS HER DTR YEVGENIY IS HER HCP AND CM HAS REQUESTED FAMILY BRING COPY IN.
[2023-06-15 07:48] LABS: INTERNATIONAL NORM RATIO 2.6 (0.9-1.1)
[2023-06-15 07:52] LABS: Anion Gap 9 (12-20); Blood Urea Nitrogen 34 mg/dL (9-16); Calcium 8.4 mg/dL (8.4-10.2); Carbon Dioxide 28 mmol/L (22-29); Chloride 104 mmol/L (96-108); Creatinine Clr Calc Pharmacy 44.1; Estimated Glomerular Filt Rate 53; Glucose Random 144 mg/dL (60-115); Potassium 3.3 mmol/L (3.3-5.1); Sodium 138 mmol/L (135-145)
[2023-06-15] MEDS: levalbuterol HCL 1.25 MG/3 ML VIAL.NEB INHALE ×3 (07:56→19:40)
[2023-06-15 08:04] LABS: Glucose, Whole Blood 140 mg/dL (60-115)
[2023-06-15] MEDS: Warfarin Sodium 2.5 MG TABLET PO (09:01)
[2023-06-15] MEDS: Spironolactone 25 MG TABLET PO ×2 (09:01→16:43)
[2023-06-15] MEDS: Amiodarone HCL 200 MG TABLET PO (09:01)
[2023-06-15] MEDS: guaiFENesin LA 600 MG TAB.ER.12H PO ×2 (09:01→20:48)
[2023-06-15] MEDS: Gabapentin 300 MG CAPSULE PO ×2 (09:01→20:48)
[2023-06-15] MEDS: SITagliptin Phosphate 100 MG TABLET PO (09:03)
[2023-06-15] MEDS: methylPREDNISolone Sod Succ 40 MG/ML VIAL IVPUSH (09:03)
[2023-06-15] MEDS: 0.9 % Sodium Chloride Flush 3 ML SYRINGE IVFLUSH ×3 (09:03→20:58)
[2023-06-15] MEDS: Ferrous Sulfate 324 MG TABLET.DR PO ×2 (09:03→20:48)
[2023-06-15] MEDS: Furosemide 40 MG/4 ML VIAL IVPUSH ×2 (09:03→16:44)
[2023-06-15 11:26] LABS: Glucose, Whole Blood 185 mg/dL (60-115)
[2023-06-15] MEDS: Insulin Lispro 100 UNIT/ML 3 ML VIAL SUBCUT ×3 (11:43→20:57)
[2023-06-15] MEDS: guaiFEN/Codeine SF 200/20/10ML 10 ML LIQUID PO ×3 (11:43→20:48)
[2023-06-15] MEDS: cefTRIAXone sodium 1 GM in 0.9 % Sodium Chloride 50 ML IV (11:45)
--- NOTE | 2023-06-15 13:38 | HO.PM.IMPN ---
Subjective Subjective Date of Service: 06/15/23 Interval History: Seen and evaluated Feels little better but reporting cough and weakness having chills Review of Systems Review of Systems: Yes all other systems are reviewed and are negative Physical Exam Vital Signs: Vital Signs: Last Vital Signs Temp 98.1 F 06/15/23 10:59 Pulse 80 06/15/23 10:59 Resp 16 06/15/23 10:59 BP 128/73 06/15/23 10:59 Pulse Ox 95 06/15/23 10:59 O2 Del Method Room Air 06/15/23 10:59 O2 Flow Rate 2 06/14/23 14:47 BMI result Body Mass Index 23.4 Const: Other: Constitutional : Awake, interactive, looks weak and tired, not in distress Neck : Normal inspection, Supple Cardiovascular : RRR, no JVP, no lower extremity edema Respiratory : good bilateral air entry, basal fine crackles left side, scattered expiratory wheezes Gastrointestinal: soft, lax, Normal bowel sounds, Non tender Skin : Warm, Dry Neurological : Alert & oriented x3, No focal deficit Objective Data Active Medications Acetaminophen (Acetaminophen 325 Mg Tablet) 650 mg PO Q6H PRN PRN Reason: Pain, Mild (Pain Scale 1-3) Last Admin: 06/14/23 22:16 Dose: 650 mg Documented By: MANUEL Albuterol Sulfate (Albuterol Sulfate (0.083%) 2.5 Mg/3 Ml Vial.Giuliano) 5 mg INHALE Q4H PRN PRN Reason: sob Amiodarone HCl (Amiodarone Hcl 200 Mg Tablet) 200 mg PO DAILY [facility] Last Admin: 06/15/23 09:01 Dose: 200 mg Documented By: ACE Benzonatate (Benzonatate 100 Mg Capsule) 100 mg PO TID [facility] Last Admin: 06/15/23 10:16 Dose: Not Given Documented By: ACE Non-Admin Reason: Patient Refused Ferrous Sulfate (Ferrous Sulfate 324 Mg Tablet.) 324 mg PO BID [facility] Last Admin: 06/15/23 09:03 Dose: 324 mg Documented By: ACE Furosemide (Furosemide 40 Mg/4 Ml Vial) 40 mg IVPUSH BID@0900,1800 [facility]; Protocol Last Admin: 06/15/23 09:03 Dose: 40 mg Documented By: ACE Gabapentin (Gabapentin 300 Mg Capsule) 300 mg PO BID [facility] Last Admin: 06/15/23 09:01 Dose: 300 mg Documented By: ACE Guaifenesin (Guaifenesin La 600 Mg Tab.Er.12h) 600 mg PO BID [facility] Last Admin: 06/15/23 09:01 Dose: 600 mg Documented By: ACE Guaifenesin/Codeine Phosphate (Guaifen/Codeine Sf 200/20/10ml 10 Ml Liquid) 10 ml PO Q4H PRN PRN Reason: Cough Last Admin: 06/15/23 11:43 Dose: 10 ml Documented By: ACE Ceftriaxone Sodium 1 gm/ (Sodium Chloride) 50 mls @ 100 mls/hr IV Q24H [facility] Last Infusion: 06/15/23 12:15 Dose: Infused Documented By: ACE Doxycycline Hyclate 100 mg/ (Sodium Chloride) 250 mls @ 166.67 mls/hr IV Q12H [facility] Last Admin: 06/15/23 12:40 Dose: 166.67 mls/hr Documented By: ACE Insulin Human Lispro (Insulin Lispro 100 Unit/Ml 3 Ml Vial) 0 unit SUBCUT QIDACHS [facility]; Protocol Last Admin: 06/15/23 11:43 Dose: 2 unit Documented By: ACE Levalbuterol HCl (Levalbuterol Hcl 1.25 Mg/3 Ml Vial.Neb) 1.25 mg INHALE RTID [facility] Last Admin: 06/15/23 07:56 Dose: 1.25 mg Documented By: KEMI Levalbuterol HCl (Levalbuterol Hcl 1.25 Mg/3 Ml Vial.Neb) 1.25 mg INHALE Q2H PRN PRN Reason: sob Last Admin: 06/14/23 23:55 Dose: 1.25 mg Documented By: BRENDAN Methylprednisolone Sodium Succinate (Methylprednisolone Sod Succ 40 Mg/Ml Vial) 40 mg IVPUSH Q24H [facility] Last Admin: 06/15/23 09:03 Dose: 40 mg Documented By: ACE Omeprazole (Omeprazole 40 Mg Capsule.) 40 mg PO BID@0630,1630 [facility] Last Admin: 06/15/23 06:03 Dose: 40 mg Documented By: MANUEL Ondansetron HCl (Ondansetron Hcl 4 Mg/2 Ml Vial) 4 mg IVPUSH Q8H PRN PRN Reason: Nausea and Vomiting Senna (Sennosides 8.6 Mg Tablet) 17.2 mg PO DAILY PRN PRN Reason: constipation Sitagliptin Phosphate (Sitagliptin Phosphate 100 Mg Tablet) 100 mg PO DAILY [facility] Last Admin: 06/15/23 09:03 Dose: 100 mg Documented By: ACE Sodium Chloride (0.9 % Sodium Chloride Flush 3 Ml Syringe) [facility] Last Admin: 06/15/23 09:03 Dose: 3 ml Documented By: ACE Spironolactone (Spironolactone 25 Mg Tablet) 25 mg PO BIDWM [facility]; Protocol Last Admin: 06/15/23 09:01 Dose: 25 mg Documented By: ACE Warfarin Sodium (Warfarin Sodium 2.5 Mg Tablet) 2.5 mg PO DAILY [facility] Last Admin: 06/15/23 09:01 Dose: 2.5 mg Documented By: ACE Labs 06/14/23 10:59 06/15/23 06:54 Labs: Laboratory Results - last 24 hr 06/14/23 06/14/23 06/14/23 12:51 14:08 18:08 Hold Purple Top PT INR Anion Gap Estim Creat Clear Calc Estimated GFR POC Glucose 156 H Random Glucose Calcium Urine Color Yellow Urine Appearance Clear Urine pH 5.5 Ur Specific [place] 1.010 Urine Protein Negative Urine Glucose (UA) Negative Urine Ketones Negative Urine Blood Negative Urine Nitrite Negative Ur Leukocyte Esterase Negative Digoxin < 0.2 L 06/14/23 06/15/23 06/15/23 21:41 06:54 07:23 Hold Purple Top SEE NOTE PT 32.0 H INR 2.6 H Anion Gap 9 L Estim Creat Clear Calc 44.1 Estimated GFR 53 POC Glucose 144 H 140 H Random Glucose 144 H Calcium 8.4 D Urine Color Urine Appearance Urine pH Ur Specific [place] Urine Protein Urine Glucose (UA) Urine Ketones Urine Blood Urine Nitrite Ur Leukocyte Esterase Digoxin 06/15/23 11:01 Hold Purple Top PT INR Anion Gap Estim Creat Clear Calc Estimated GFR POC Glucose 185 H Random Glucose Calcium Urine Color Urine Appearance Urine pH Ur Specific [place] Urine Protein Urine Glucose (UA) Urine Ketones Urine Blood Urine Nitrite Ur Leukocyte Esterase Digoxin Assessment and Plan (1) CAP (community acquired pneumonia): Status: Acute (2) Sepsis: Status: Acute (3) Acute on chronic clinical systolic heart failure: Status: Acute Plan A 63 years old lady with PMH of MVR on Warfarin, Afib, CMP and systolic CHF, COPD, replaced valve ( among others who presented with SOB and fever for 3 days [employer]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 # Sepsis 2/2 LLL Pneumonia and COPD exacerbation CXR LLL aterlactasis w fluid overload Pending cultures Continue IV Steroids Continue IV Doxycycline and Ceftriaxone Xopenex nebs Wean O2 down as tolerated # Acute on chronic systolic CHF exacerbation Elevated BNP with CXR overload resume IV lasix 40mg BID I\O # Afib rate better controlled Continue amiodarone and Warfarin follow INR # GERD Omeprazole # DM II Diabetic diet SSI DVT PPx Warfarin The patient will likely need overnight hospital stay for treatment of sepsis on IV Abx pending final cultures Quality Stroke Does the patient have a stroke diagnosis?: No VTE Prior VTE?: No VTE Risk Level:: Medical - moderate - high VTE Device Contraindication: Treatment Not Indicated VTE Drug Contraindication: N/A - Med Ordered
[2023-06-15 15:48] LABS: Glucose, Whole Blood 249 mg/dL (60-115)
[2023-06-15 20:46] LABS: Glucose, Whole Blood 357 mg/dL (60-115)
[2023-06-15] MEDS: Benzonatate 100 MG CAPSULE PO (20:48)
[2023-06-16] VITALS (11 sets, daily range): BP systolic 125–169; BP diastolic 65–78; PULSE 80–101; RESP 16–20; TEMP 36.3–37; O2SAT 94–97
[2023-06-16] MEDS: guaiFEN/Codeine SF 200/20/10ML 10 ML LIQUID PO ×2 (02:12→20:14)
[2023-06-16] MEDS: Doxycycline Hyclate 100 MG in 0.9 % Sodium Chloride 250 ML 166.67 MG IV ×2 (02:14→13:14)
[2023-06-16] MEDS: Zolpidem Tartrate 5 MG TABLET PO ×2 (02:31→22:38)
[2023-06-16 07:21] LABS: INTERNATIONAL NORM RATIO 3.6 (0.9-1.1); Prothrombin Time 44.3 SEC (11.1-13.3)
[2023-06-16] MEDS: levalbuterol HCL 1.25 MG/3 ML VIAL.NEB INHALE ×3 (07:28→20:17)
[2023-06-16 07:30] LABS: Anion Gap 12 (12-20); Blood Urea Nitrogen 36 mg/dL (9-16); Calcium 8.7 mg/dL (8.4-10.2); Carbon Dioxide 27 mmol/L (22-29); Chloride 105 mmol/L (96-108); Creatinine Clr Calc Pharmacy 51.5; Estimated Glomerular Filt Rate > 60; Glucose Random 163 mg/dL (60-115); Potassium 3.9 mmol/L (3.3-5.1); Sodium 140 mmol/L (135-145)
[2023-06-16 07:35] LABS: B Type Natriuretic Peptide 1066 pg/mL (<100)
[2023-06-16 08:02] LABS: Glucose, Whole Blood 159 mg/dL (60-115)
[2023-06-16] MEDS: Acetaminophen 325 MG TABLET 650 MG PO (08:04)
[2023-06-16] MEDS: guaiFENesin LA 600 MG TAB.ER.12H PO (08:04)
[2023-06-16] MEDS: Omeprazole 40 MG CAPSULE.DR PO ×2 (08:04→17:07)
[2023-06-16] MEDS: Amiodarone HCL 200 MG TABLET PO (08:05)
[2023-06-16] MEDS: SITagliptin Phosphate 100 MG TABLET PO (08:05)
[2023-06-16] MEDS: Ferrous Sulfate 324 MG TABLET.DR PO ×2 (08:05→20:13)
[2023-06-16] MEDS: Warfarin Sodium 2.5 MG TABLET PO (08:05)
[2023-06-16] MEDS: methylPREDNISolone Sod Succ 40 MG/ML VIAL IVPUSH (08:05)
[2023-06-16] MEDS: 0.9 % Sodium Chloride Flush 3 ML SYRINGE IVFLUSH ×3 (08:05→20:14)
[2023-06-16] MEDS: Furosemide 40 MG/4 ML VIAL IVPUSH (08:05)
[2023-06-16] MEDS: Gabapentin 300 MG CAPSULE PO ×2 (08:05→20:13)
[2023-06-16] MEDS: Spironolactone 25 MG TABLET PO ×2 (08:05→17:08)
[2023-06-16] MEDS: Benzonatate 100 MG CAPSULE PO ×2 (08:05→17:06)
[2023-06-16] MEDS: Insulin Lispro 100 UNIT/ML 3 ML VIAL SUBCUT ×4 (08:06→20:14)
[2023-06-16] MEDS: metOLazone 2.5 MG TABLET PO (09:43)
--- NOTE | 2023-06-16 11:10 | P.PNIM_ITS ---
Subjective Subjective Date of Service: 06/16/23 Interval History: Seen and evaluated Improving slowly reporting cough, dyspnea with exertion having chills but no fever Review of Systems Review of Systems: Yes all other systems are reviewed and are negative Physical Exam 2 Vital Signs: Vital Signs: Last Vital Signs Temp 97.4 F 06/16/23 10:46 Pulse 84 06/16/23 10:46 Resp 16 06/16/23 10:46 BP 137/76 06/16/23 10:46 Pulse Ox 97 06/16/23 10:46 O2 Del Method Room Air 06/16/23 10:46 O2 Flow Rate 2 06/14/23 14:47 BMI result Body Mass Index 23.4 Const: Other: Constitutional : Awake, interactive, looks weak and tired, not in distress Neck : Normal inspection, Supple Cardiovascular : RRR, no JVP, no lower extremity edema Respiratory : good bilateral air entry, basal fine crackles left side, scattered expiratory wheezes Gastrointestinal: soft, lax, Normal bowel sounds, Non tender Skin : Warm, Dry Neurological : Alert & oriented x3, No focal deficit Objective Data Active Medications Acetaminophen (Acetaminophen 325 Mg Tablet) 650 mg PO Q6H PRN PRN Reason: Pain, Mild (Pain Scale 1-3) Last Admin: 06/16/23 08:04 Dose: 650 mg Documented By: ARIA Albuterol Sulfate (Albuterol Sulfate (0.083%) 2.5 Mg/3 Ml Vial.Giuliano) 5 mg INHALE Q4H PRN PRN Reason: sob Amiodarone HCl (Amiodarone Hcl 200 Mg Tablet) 200 mg PO DAILY [facility] Last Admin: 06/16/23 08:05 Dose: 200 mg Documented By: ARIA Benzonatate (Benzonatate 100 Mg Capsule) 100 mg PO TID [facility] Last Admin: 06/16/23 08:05 Dose: 100 mg Documented By: ARIA Ferrous Sulfate (Ferrous Sulfate 324 Mg Tablet.) 324 mg PO BID [facility] Last Admin: 06/16/23 08:05 Dose: 324 mg Documented By: ARIA Furosemide (Furosemide 40 Mg/4 Ml Vial) 60 mg IVPUSH BID@0900,1800 [facility]; Protocol Gabapentin (Gabapentin 300 Mg Capsule) 300 mg PO BID [facility] Last Admin: 06/16/23 08:05 Dose: 300 mg Documented By: ARIA Guaifenesin/Codeine Phosphate (Guaifen/Codeine Sf 200/20/10ml 10 Ml Liquid) 10 ml PO Q4H PRN PRN Reason: Cough Last Admin: 06/16/23 02:12 Dose: 10 ml Documented By: DOMNIGO Guaifenesin/Dextromethorphan (Guaifenesin Dm 600/30 1 Tab Tab.Er.12h) 2 tab PO BID [facility] Ceftriaxone Sodium 1 gm/ (Sodium Chloride) 50 mls @ 100 mls/hr IV Q24H [facility] Last Infusion: 06/15/23 12:15 Dose: Infused Documented By: ACE Doxycycline Hyclate 100 mg/ (Sodium Chloride) 250 mls @ 166.67 mls/hr IV Q12H [facility] Last Infusion: 06/16/23 04:16 Dose: Infused Documented By: DOMINGO Insulin Human Lispro (Insulin Lispro 100 Unit/Ml 3 Ml Vial) 0 unit SUBCUT QIDACHS [facility]; Protocol Last Admin: 06/16/23 08:06 Dose: 2 unit Documented By: ARIA Levalbuterol HCl (Levalbuterol Hcl 1.25 Mg/3 Ml Vial.Neb) 1.25 mg INHALE RTID [facility] Last Admin: 06/16/23 07:28 Dose: 1.25 mg Documented By: JENNY Levalbuterol HCl (Levalbuterol Hcl 1.25 Mg/3 Ml Vial.Neb) 1.25 mg INHALE Q2H PRN PRN Reason: sob Last Admin: 06/14/23 23:55 Dose: 1.25 mg Documented By: BRENDAN Methylprednisolone Sodium Succinate (Methylprednisolone Sod Succ 40 Mg/Ml Vial) 40 mg IVPUSH Q24H [facility] Last Admin: 06/16/23 08:05 Dose: 40 mg Documented By: ARIA Omeprazole (Omeprazole 40 Mg Capsule.Dr) 40 mg PO BID@0630,1630 [facility] Last Admin: 06/16/23 08:04 Dose: 40 mg Documented By: ARIA Ondansetron HCl (Ondansetron Hcl 4 Mg/2 Ml Vial) 4 mg IVPUSH Q8H PRN PRN Reason: Nausea and Vomiting Senna (Sennosides 8.6 Mg Tablet) 17.2 mg PO DAILY PRN PRN Reason: constipation Sitagliptin Phosphate (Sitagliptin Phosphate 100 Mg Tablet) 100 mg PO DAILY [facility] Last Admin: 06/16/23 08:05 Dose: 100 mg Documented By: ARIA Sodium Chloride (0.9 % Sodium Chloride Flush 3 Ml Syringe) 3 ml IVFLUSH QSHIFT [facility] Last Admin: 06/16/23 08:05 Dose: 3 ml Documented By: ARIA Spironolactone (Spironolactone 25 Mg Tablet) 25 mg PO BIDWM [facility]; Protocol Last Admin: 06/16/23 08:05 Dose: 25 mg Documented By: ARIA Warfarin Sodium (Warfarin Sodium 2.5 Mg Tablet) 2.5 mg PO DAILY@1800 [facility] Labs 06/14/23 10:59 06/16/23 07:03 Labs: Laboratory Results - last 24 hr 06/15/23 06/15/23 06/15/23 11:01 15:02 20:24 PT INR Anion Gap Estim Creat Clear Calc Estimated GFR POC Glucose 185 H 249 H 357 H* Random Glucose Calcium B-Natriuretic Peptide 06/16/23 06/16/23 07:03 07:08 PT 44.3 H D INR 3.6 H Anion Gap 12 Estim Creat Clear Calc 51.5 Estimated GFR > 60 POC Glucose 159 H Random Glucose 163 H Calcium 8.7 B-Natriuretic Peptide 1066 H Microbiology Microbiology Results: Microbiology 06/14/23 13:21 Blood Culture - Preliminary Blood - Venous No growth after 24 hours. 06/14/23 13:24 Blood Culture - Preliminary Blood - Venous No growth after 24 hours. Assessment and Plan (1) CAP (community acquired pneumonia): Status: Acute (2) Atrial fibrillation with rapid ventricular response: Status: Acute (3) Acute on chronic clinical systolic heart failure: Status: Acute Plan A 63 years old lady with PMH of MVR on Warfarin, Afib, CMP and systolic CHF, COPD, replaced valve ( among others who presented with SOB and fever for 3 days [employer]. # Sepsis 2/2 LLL Pneumonia and COPD exacerbation CXR LLL aterlactasis w fluid overload Pending cultures Continue IV Steroids Continue IV Doxycycline and Ceftriaxone Xopenex nebs Weaned O2 down # Acute on chronic systolic CHF exacerbation Elevated BNP to 100 CXR showing fluid overload Increase IV lasix 60mg BID give Metolazone dose I\O # Afib rate better controlled Continue amiodarone and Warfarin follow INR # GERD Omeprazole # DM II Diabetic diet SSI DVT PPx Warfarin The patient will likely need overnight hospital stay for treatment of sepsis on IV Abx and heart failure IV lasix pending final cultures Quality Stroke Does the patient have a stroke diagnosis?: No VTE Prior VTE?: No VTE Risk Level:: Medical - moderate - high VTE Device Contraindication: Treatment Not Indicated VTE Drug Contraindication: N/A - Med Ordered
[2023-06-16 11:39] LABS: Glucose, Whole Blood 225 mg/dL (60-115)
[2023-06-16] MEDS: guaiFENesin DM 600/30 1 TAB TAB.ER.12H 2 TAB PO ×2 (11:54→20:13)
[2023-06-16] MEDS: cefTRIAXone sodium 1 GM in 0.9 % Sodium Chloride 50 ML IV (13:13)
[2023-06-16 16:44] LABS: Glucose, Whole Blood 344 mg/dL (60-115)
[2023-06-16] MEDS: Furosemide 40 MG/4 ML VIAL 60 MG IVPUSH (17:07)
[2023-06-16] MEDS: Sennosides 8.6 MG TABLET 17.2 MG PO (17:41)
[2023-06-16 19:56] LABS: Glucose, Whole Blood 335 mg/dL (60-115)
[2023-06-17] MEDS: Doxycycline Hyclate 100 MG in 0.9 % Sodium Chloride 250 ML 166.67 MG IV (00:32)
[2023-06-17] MEDS: guaiFEN/Codeine SF 200/20/10ML 10 ML LIQUID PO (00:40)
[2023-06-17 03:23] VITALS: BP 140/78; PULSE 91; RESP 20; TEMP 36.4; O2SAT 96
[2023-06-17] MEDS: Omeprazole 40 MG CAPSULE.DR PO (06:09)
[2023-06-17 07:02] LABS: Hematocrit 31.2 % (37.0-47.0); Hemoglobin 10.1 g/dl (12.0-16.0); Mean Corpuscular HGB Conc 32.4 g/dl (31.0-35.0); Mean Corpuscular Hemoglobin 27.7 pg (27.0-33.0); Mean Corpuscular Volume 85.7 fL (80.0-98.0); Platelet Count 208 X10*3/uL (160-400); Red Blood Count 3.64 X10*6/uL (4.20-5.50); Red Cell Distribution Width 14.2 % (11.0-16.0); White Blood Count 6.9 X10*3/uL (4.8-10.8)
[2023-06-17 07:11] LABS: Prothrombin Time 62.9 SEC (11.1-13.3)
[2023-06-17 07:16] VITALS: BP 148/75; PULSE 98; RESP 20; TEMP 36.4; O2SAT 95
[2023-06-17 07:22] LABS: Glucose, Whole Blood 161 mg/dL (60-115)
[2023-06-17 07:29] LABS: INTERNATIONAL NORM RATIO 5.2 (0.9-1.1)
[2023-06-17 07:30] LABS: Anion Gap 15 (12-20); Blood Urea Nitrogen 48 mg/dL (9-16); Calcium 9.4 mg/dL (8.4-10.2); Carbon Dioxide 27 mmol/L (22-29); Chloride 99 mmol/L (96-108); Creatinine Clr Calc Pharmacy 37.1; Estimated Glomerular Filt Rate 43; Glucose Random 162 mg/dL (60-115); Potassium 3.8 mmol/L (3.3-5.1); Sodium 137 mmol/L (135-145)
[2023-06-17] MEDS: levalbuterol HCL 1.25 MG/3 ML VIAL.NEB INHALE (08:13)
[2023-06-17 08:15] VITALS: PULSE 98; RESP 18; O2SAT 95
[2023-06-17] MEDS: Insulin Lispro 100 UNIT/ML 3 ML VIAL SUBCUT (09:56)
[2023-06-17] MEDS: methylPREDNISolone Sod Succ 40 MG/ML VIAL IVPUSH (09:57)
[2023-06-17] MEDS: Spironolactone 25 MG TABLET PO (09:58)
[2023-06-17] MEDS: guaiFENesin DM 600/30 1 TAB TAB.ER.12H 2 TAB PO (09:58)
[2023-06-17] MEDS: Benzonatate 100 MG CAPSULE PO (09:58)
[2023-06-17] MEDS: Ferrous Sulfate 324 MG TABLET.DR PO (09:58)
[2023-06-17] MEDS: SITagliptin Phosphate 100 MG TABLET PO (09:58)
[2023-06-17] MEDS: Gabapentin 300 MG CAPSULE PO (09:58)
[2023-06-17] MEDS: Amiodarone HCL 200 MG TABLET PO (09:58)
[2023-06-17] MEDS: 0.9 % Sodium Chloride Flush 3 ML SYRINGE IVFLUSH (09:59)
[2023-06-17] MEDS: Furosemide 40 MG/4 ML VIAL 60 MG IVPUSH (09:59)
--- NOTE | 2023-06-17 11:15 | PM.DS ---
DS: Providers Provider Date of Service: 06/17/23 Date of admission: 06/14/23 16:18 Primary care physician: Devi Santoyo MD DS: Diagnosis Discharge Diagnosis (1) CAP (community acquired pneumonia): Status: Acute (2) Atrial fibrillation with rapid ventricular response: Status: Acute (3) Acute on chronic clinical systolic heart failure: Status: Acute (4) Sepsis: Status: Acute DS: Summary Hospital Course Hospital Course: Admission note HPI A 63 years old lady with PMH of MVR on Warfarin, Afib, CMP and systolic CHF, COPD, replaced valve ( among others who presented with SOB and fever for 3 days BEFORE AND [employer]. The patient reports coughing and having difficulties breathing for 3 days that has been worsening overall. this morning she mistakenly took her medications including escitalopram 25mg, risperidone 5mg, ativan 0.5mg and haldol 1mg. reporting fever, chills, cough, dyspnea w exertion, but denies No chest pain, palpitations, nausea, vomiting, diarrhea or urinary symptoms. In ED found to be Afib w RvR and fever which improved with initial treatment in ED. requiring O2 supplement. Will be admitted for further eval and management. Hospital course # Sepsis secondary to LLL Pneumonia and COPD exacerbation CXR LLL aterlactasis w fluid overload. Negative blood cultures. Treated with IV Steroids, IV Doxycycline and Ceftriaxone along with Xopenex nebs and O2 supplement with good response over the course of hospital stay. Weaned down to room air and was able to ambulate with no reported dyspnea. # Acute on chronic systolic CHF exacerbation Elevated BNP to 1000, CXR showing fluid overload treated with IV lasix 60mg BID and Metolazone doses with improvement in her clinical condition as she did not collect urine. advised to have low sodium diet and monitor her weight at home. # Afib with RvR on presentation rate better controlled with home dose of amiodarone and Warfarin INR elevated to 5.2, to hold and recheck by Monday Take cough medications as prescribed Doxycycline for 5 more days Prednisone as prescribed Xopenex nebulizer 3 times daily for the next 5 days then use it as needed Monitor your salt intake and check your weight Follow with PCP as outpatient INR elevated to 5.2, to hold doses today and tomorrow, recheck INR by Monday morning Time Attestation Discharge coordination time: Greater than 30 minutes Quality: Safe Use of Opioids Does Pt have an Active Cancer Diagnosis on the Problem List?: No Quality: Stroke Does the patient have a stroke diagnosis?: No Physical Exam Vital Signs: Vital Signs: Last Vital Signs Temp 97.6 F 06/17/23 07:16 Pulse 98 06/17/23 08:15 Resp 18 06/17/23 08:15 BP 148/75 H 06/17/23 07:16 Pulse Ox 95 06/17/23 07:16 O2 Del Method Room Air 06/17/23 07:16 O2 Flow Rate 2 06/14/23 14:47 BMI result Body Mass Index 23.4 Const: Other: Constitutional : Awake, interactive, looks weak and tired, not in distress Neck : Normal inspection, Supple Cardiovascular : RRR, no JVP, no lower extremity edema Respiratory : good bilateral air entry, no crackles , fine expiratory wheezes Gastrointestinal: soft, lax, Normal bowel sounds, Non tender Skin : Warm, Dry Neurological : Alert & oriented x3, No focal deficit DS: Data Data Completed and Pending Labs on day of discharge: Laboratory Results - last 24 hr 06/16/23 06/16/23 06/16/23 10:51 16:10 19:48 WBC RBC Hgb Hct MCV MCH MCHC RDW Plt Count MPV Absolute Nucleated RBC Nucleated RBC % (auto) PT INR Sodium Potassium Chloride Carbon Dioxide Anion Gap BUN Creatinine Estim Creat Clear Calc Estimated GFR POC Glucose 225 H 344 H 335 H Random Glucose Calcium 06/17/23 06/17/23 06:25 07:18 WBC 6.9 RBC 3.64 L Hgb 10.1 L Hct 31.2 L MCV 85.7 MCH 27.7 MCHC 32.4 RDW 14.2 Plt Count 208 D MPV 10.0 Absolute Nucleated RBC 0.000 Nucleated RBC % (auto) 0.0 PT 62.9 H D INR 5.2 H* Sodium 137 Potassium 3.8 Chloride 99 Carbon Dioxide 27 Anion Gap 15 BUN 48 H Creatinine 1.25 Estim Creat Clear Calc 37.1 Estimated GFR 43 POC Glucose 161 H Random Glucose 162 H Calcium 9.4 D Preliminary micro results at discharge 06/14/23 13:21 Blood Culture - Preliminary Blood - Venous No growth after 48 hours. 06/14/23 13:24 Blood Culture - Preliminary Blood - Venous No growth after 48 hours. Imaging Chest x-ray: Radiologist's impression: ITS Impressions Chest X-Ray 06/14/23 12:38 IMPRESSION: X-ray findings suspicious for underlying pulmonary vascular congestion and interstitial edema toward the bases. Basilar atelectatic changes on the left. Status post median sternotomy. Discharge Plan Discharge Anticipated Discharge Date/Time: 06/17/23 10:55 Patient Disposition: Home, Self-Care Discharge Diagnosis: COPD exacerbation Fluid overload Referrals: Devi Benavides MD [Primary Care Provider] - 1 Week Discharge Medications: New codeine-guaifenesin 10-100 mg/5 mL Liquid 10 ml PO Q4H PRN (Reason: Cough) Qty: 473 0RF Mucus DM 30-600 mg Tablet Extended Release 12 Hr 2 tab PO BID Qty: 30 0RF prednisone 20 mg tablet 40 mg PO DAILY Qty: 8 0RF doxycycline monohydrate 100 mg capsule 100 mg PO BID Qty: 10 0RF levalbuterol HCl 1.25 mg/3 mL Solution For Nebulization 1.25 mg inhalation RTID Qty: 72 1RF Continued amiodarone 200 mg tablet 200 mg PO DAILY Qty: 30 3RF Rx Instructions: Once you completed the 14 days start this script : one tab once a day. Script 2 of 2 spironolactone 25 mg tablet 25 mg PO BID Qty: 60 5RF furosemide 20 mg tablet 20 mg PO TID Qty: 90 5RF Rx Instructions: Call office immediately for weight gain, swelling, shortness of breath so we can adjust your dose. gabapentin 300 mg capsule 300 mg PO BID sennosides [senna] 8.6 mg tablet 17.2 mg PO DAILY PRN (Reason: constipation) torsemide 20 mg tablet 40 mg PO BID Beconase AQ 42 mcg (0.042 %) spray,non-aerosol 1 spray intranasal BID ferrous sulfate 325 mg (65 mg iron) tablet,delayed release (DR/EC) 325 mg PO BID ondansetron 4 mg tablet,disintegrating 4 mg PO Q8H PRN (Reason: Nausea) warfarin 2.5 mg tablet 2.5 mg PO DAILY Januvia 100 mg tablet 100 mg PO DAILY omeprazole 40 mg capsule,delayed release(DR/EC) 40 mg PO BID Discharge Orders: Discharge Order (Routine); Ordered 06/17/23 Ordered By: Brayan Severino Diet: Low salt diet Activity on Discharge: As tolerated Stand Alone Forms: Patient Portal Discharge page Care Plan Goals: Read below Health Concerns: Read below Plan of Treatment: Read below Assessment: You were treated for COPD exacerbation and fluid overload in your lungs. responded to treatment with Steroids, Antibiotics and nebulizers along with IV lasix for fluid overload. Take cough medications as prescribed Doxycycline for 5 more days Prednisone as prescribed Xopenex nebulizer 3 times daily for the next 5 days then use it as needed Monitor your salt intake and check your weight Follow with PCP as outpatient
--- NOTE | 2023-06-17 11:15 | MHC.CM.PN ---
Patient has been medically cleared for dc to home today, self care.
[2023-06-17 11:17] VITALS: BP 144/70; PULSE 87; RESP 20; TEMP 36.4; O2SAT 96
[2023-06-17 11:21] LABS: Glucose, Whole Blood 123 mg/dL (60-115)
== END 2023-06-17 13:12 | disposition home or self-care (01) | DRG 871 ==
LOC: HO.ED 14:03 → HO.EDOVER 16:41 → HO.IMC 18:06
PROVIDERS: Admitting Provider Student in an Organized Health Care Education/Training Program; Emergency Provider Emergency Medicine; PCP Internal Medicine; Visit Provider Student in an Organized Health Care Education/Training Program
DX: A41.9 Sepsis, unspecified organism (principal); I50.23 Acute on chronic systolic (congestive) heart failure; J18.9 Pneumonia, unspecified organism; J44.0 Chronic obstructive pulmonary disease with (acute) lower respiratory infection; J44.1 Chronic obstructive pulmonary disease with (acute) exacerbation; I48.20 Chronic atrial fibrillation, unspecified; J98.11 Atelectasis; T43.221A Poisoning by selective serotonin reuptake inhibitors, accidental (unintentional), initial encounter; T43.591A Poisoning by other antipsychotics and neuroleptics, accidental (unintentional), initial encounter; T42.4X1A Poisoning by benzodiazepines, accidental (unintentional), initial encounter; T43.4X1A Poisoning by butyrophenone and thiothixene neuroleptics, accidental (unintentional), initial encounter; R79.1 Abnormal coagulation profile; K21.9 Gastro-esophageal reflux disease without esophagitis; E11.9 Type 2 diabetes mellitus without complications; Z20.822 Contact with and (suspected) exposure to COVID-19; Z95.2 Presence of prosthetic heart valve; Z87.891 Personal history of nicotine dependence; Z79.01 Long term (current) use of anticoagulants; Z79.899 Other long term (current) drug therapy
CPT/HCPCS: 0241U; 36415; 71045; 80048; 80076; 80143; 80162; 80179; 81003; 82803; 82947; 83605; 83735; 83880; 84484; 85025; 85027; 85610; 87040; 93005; 94640; 97161; 99285; J0696; J1940; J2920

== ENCOUNTER → 2023-06-14 12:02 | Outpatient (BNV) | payer OTHER, SELFPAY | PROVIDERS: Emergency Provider Emergency Medicine; PCP Internal Medicine; Visit Provider Student in an Organized Health Care Education/Training Program | DX: A41.9 Sepsis, unspecified organism (principal); I48.91 Unspecified atrial fibrillation; I50.23 Acute on chronic systolic (congestive) heart failure; J18.9 Pneumonia, unspecified organism | CPT/HCPCS: 99223; 99233; 99239 ==

== ENCOUNTER 2023-06-15 12:06 | Outpatient (REF) | payer OTHER, SELFPAY | END 2023-06-15 12:07 | disposition home or self-care (01) | LOC: HO.HOSX 12:06 | PROVIDERS: Visit Provider Physician Assistant | DX: Z13.89 Encounter for screening for other disorder (principal) ==

== ENCOUNTER 2023-07-22 05:29 | Inpatient (IN) | payer OTHER, SELFPAY ==
[2023-07-22] VITALS (12 sets, daily range): BP systolic 130–174; BP diastolic 49–76; PULSE 83–111; RESP 18–28; TEMP 35.8–36.9; O2SAT 93–100; BMI 24.9
--- NOTE | ~2023-07-22 | XR_ITS ---
EXAMINATION: XR CHEST CLINICAL INFORMATION: Bronchitis COMPARISON: Chest x-ray July 28, 2023 TECHNIQUE: Frontal view of the chest was obtained. FINDINGS: Stable cardiomegaly. Patient is status post CABG. Right chest port in stable position. Atherosclerotic disease of the aortic arch. The lungs are adequately aerated. Similar diffuse mild bronchial wall thickening. Similar chronic blunting of the left costophrenic angle. No large pleural effusion. No pneumothorax. XR/XR chest 1V IMPRESSION: Chronic changes of the lungs without acute pulmonary pathology.
--- NOTE | ~2023-07-22 | CT_ITS ---
EXAMINATION: CT CHEST WITHOUT CONTRAST CLINICAL INFORMATION: Wheezing COMPARISON: Chest radiograph 07/24/2023, CT abdomen pelvis 01/12/2012, CT chest 05/20/2011 TECHNIQUE: Multidetector volumetric CT imaging of the chest was done. Axial MIP volume rendering provided. Sagittal and coronal reformatted images were obtained. This CT examination was performed using dose optimization techniques as appropriate, variously including the following: *Automated exposure control *Adjustment of mA and/or kV according to patient size (this includes techniques or standardized protocols for targeted exams where dose is matched to indication/reason for exam; i.e. extremities or head) *Use of iterative reconstruction technique DLP: 117 mGy-cm FINDINGS: STRATEGIC BUYER: Cardiomegaly, median sternotomy and scoliosis convex to right. LUNGS: No focal consolidations. There are scattered tiny punctate calcified granulomas. No worrisome mass is seen. Some groundglass opacities are present at the right apex the largest measuring 1.1 cm (8:85). The lower lungs, there are subpleural linear changes suggestive of Neo B lines. MEDIASTINUM: Status post median sternotomy and CABG There is marked cardiomegaly. Coronary calcium is present. Calcification is present in the left ventricle possibly secondary to thrombus which has been present since at least 2010. There is slight hypoattenuation of the cardiac blood pool suggesting anemia. A right chest port is present with its tip in the proximal RA. CORONARY ARTERY CALCIFICATION: Marked three-vessel coronary disease. PLEURA: There is no pleural effusion. No pleural mass or thickening. AXILLA: No lymphadenopathy. UPPER ABDOMEN: Spleen is mildly enlarged. The IVC is distended suggesting elevated right-sided heart pressure. OSSEOUS STRUCTURES: Degenerative changes are present in the spine. There is a compression fracture of the superior endplate of T11 along with moderate compression fracture of T7 with at least 50% loss of height. No bony destructive lesions CT/CT chest wo IV con IMPRESSION: 1. Cardiomegaly with evidence of elevated right-sided heart pressure. The presence of Neo B-lines may be indicative of elevated left ventricular end-diastolic pressure is well. 2. Incidental findings such as Groundglass opacities at the right apex and compression fractures at T7 and T11 as well as other findings described above. Fleischner guidelines were followed.
--- NOTE | ~2023-07-22 | XR_ITS ---
EXAMINATION: XR CHEST CLINICAL INFORMATION: Dyspnea COMPARISON: Chest CT on 07/25/2023 TECHNIQUE: Frontal view of the chest was obtained. FINDINGS: The cardiac mediastinal silhouette is enlarged. There is mild diffuse bronchial wall thickening. There are no areas of consolidation. There are no pleural effusions or pneumothoraces. A right chest port terminates at the cavoatrial junction. Old left humeral neck fracture. The XR/XR chest 1V IMPRESSION: Bronchial wall thickening may be infectious and/or inflammatory in etiology.
--- NOTE | 2023-07-22 06:24 | PC.NURSE ---
Pt presents to ED with shortness of breath starting around 10:00 last night. EMS found pt at 94% on room air, placed pt on 2 LPM O2 and gave a duoneb. Pt condition improved and pt was at 98% O2. Pt was A&Ox4, GCS 15, with warm skin. Presenting with increased work of breathing. Pt was 100% on 2 LPM, 94% on 2 LPM. 20g IV placed in the left AC, labs drawn and sent. EKG and chest x-ray obtained. Pt being seen by ASHLEY at this time.
--- NOTE | 2023-07-22 06:29 | ED_ITS ---
HPI - SOB/Dyspnea General Chief Complaint: Dyspnea Stated Complaint: shortness of breath Time Seen by Provider: 07/22/23 06:28 Source: patient and RN notes reviewed Mode of arrival: ambulatory Limitations: no limitations History of Present Illness HPI Narrative: This is a 63-year-old female, with a past medical history of PAF on Coumadin, CHF, diabetes, COPD, MVR replacement mechanical valve, presenting to the emergency department with complaints of shortness of breath since last night at 10:00 p.m. Patient states that while she was watching television, she suddenly developed shortness of breath. Patient denies any chest pain, palpitations. She states that over the last week she has had some nasal congestion and slightly productive cough, otherwise she has been feeling well. She denies any fevers, chills, sore throat, ear pain, abdominal pain, nausea, vomiting, diarrhea, bloody or black stool. She also notes that her legs feel tight , which is typical when she is in CHF. she denies any other complaints or concerns at this time MD elicited complaint: shortness of breath Pertinent past history: COPD, congestive heart failure and diabetes Onset (ago): day(s) Context: recent illness Timing: constant and progressively worsening Severity: moderate Exacerbating factors: lying flat and exertion Relieving factors: bronchodilators and upright position Known history of: COPD, congestive heart failure and diabetes Treatment prior to arrival: oxygen Related Data Home oxygen amount: none Home Medications Medication Instructions Recorded Confirmed sitagliptin phosphate 100 mg 100 mg PO DAILY 11/16/22 07/22/23 tablet (Januvia) warfarin 2.5 mg tablet 2.5 mg PO Q OTHER DAY 11/16/22 07/22/23 omeprazole 40 mg capsule,delayed 40 mg PO BID 03/01/23 07/22/23 release beclomethasone diprop (AQ) 42 mcg 1 spray intranasal BID 06/14/23 07/22/23 (0.042 %) nasal spray (Beconase AQ) ferrous sulfate 325 mg (65 mg 325 mg PO DAILY 06/14/23 07/22/23 iron) tablet,delayed release gabapentin 300 mg capsule 300 mg PO BID 06/14/23 07/22/23 sennosides 8.6 mg tablet (senna) 17.2 mg PO DAILY PRN constipation 06/14/23 07/22/23 albuterol sulfate 2.5 mg/3 mL 2.5 mg inhalation Q2-4H PRN 07/22/23 07/22/23 (0.083 %) solution for nebulization Shortness Of Breath Or Wheezing codeine 10 mg-guaifenesin 100 mg/5 5 ml PO Q4H PRN Cough 07/22/23 07/22/23 mL oral liquid mepolizumab 100 mg subcutaneous 100 mg subcut QMONTH 07/22/23 07/22/23 solution (Nucala) warfarin 1 mg tablet 1 mg PO Q OTHER DAY 07/22/23 07/22/23 Previous Rx's Medication Instructions Recorded amiodarone 200 mg tablet 200 mg PO DAILY #30 tabs 03/07/23 spironolactone 25 mg tablet 25 mg PO BID #60 tabs 04/12/23 furosemide 20 mg tablet 20 mg PO TID #90 tabs 05/11/23 Allergies Allergy/AdvReac Type Severity Reaction Status Date / Time lisinopril [LISINOPRIL] Allergy Severe ANGIOEDEMA Verified 06/14/23 09:53 morphine [MORPHINE] Allergy Severe ANAPHYLAXIS Verified 06/14/23 09:53 penicillin V Allergy Intermediate Itching Verified 06/14/23 09:53 cefaclor [From CECLOR] Allergy Unknown HIVES Verified 06/14/23 09:53 ciprofloxacin Allergy Unknown itchy Verified 06/14/23 09:53 codeine Allergy Unknown HIVES Verified 06/14/23 09:53 methylprednisolone Allergy Unknown Unknown Verified 06/14/23 09:53 nitrofurantoin Allergy Unknown Unknown Verified 06/14/23 09:53 olmesartan [Benicar] Allergy Unknown Unknown Verified 06/14/23 09:53 Penicillins Allergy Unknown HIVES Verified 06/14/23 09:53 Sulfa (Sulfonamide Allergy Unknown HIVES Verified 06/14/23 09:53 Antibiotics) hydromorphone [From Dilaudid] AdvReac Shakiness Verified 06/14/23 09:53 odansetron Allergy Severe Hives Uncoded 06/14/23 09:53 Metoprolol Succinate Allergy Intermediate Hives Uncoded 06/14/23 09:53 celcor Allergy Unknown itchy Uncoded 06/14/23 09:53 Gentamicin in Saline Allergy Unknown hives Uncoded 06/14/23 09:53 Gentamicin Sulfate Allergy Unknown hives Uncoded 06/14/23 09:53 Latex Allergy Unknown Itching Uncoded 06/14/23 09:53 latex Allergy Unknown Itching Uncoded 06/14/23 09:53 sulfonamides Allergy Unknown Unknown Uncoded 06/14/23 09:53 vioxx Allergy Unknown Itching Uncoded 06/14/23 09:53 Bicitra AdvReac Unknown unknown Uncoded 06/14/23 09:53 Review of Systems 2 Review of Systems: Yes all other systems are reviewed and are negative Constitutional: Constitutional: Reports as per [facility] Past Medical History Onset Date is defined in the Problem List Problems that require an onset date and time if occurred within 24 hrs of arrival to the ED Aortic Dissection and Rupture; Neurologic impairment; Cardiopulmonary Arrest; Endotracheal Intubation; Insertion or Replacement of Mechanical Circulatory Assist Device Medical History (Updated 07/27/23 @ 14:30 by HERO May) Secondary pulmonary arterial hypertension Ovarian cancer Tricuspid valve insufficiency, non-rheumatic Non-rheumatic aortic stenosis Persistent atrial fibrillation Surgical History H/O mitral valve replacement with mechanical valve Family History Family History Mother Heart disease Father Heart disease Diabetes Social History Social History Household Members: Family Housing: House Do you presently have visiting nurse or other home services: Yes Alcohol intake: never Patient Tobacco Use Status: Former Tobacco user Quit Date: 1990 Years Smoked: 4 +/- service: No Physical Exam 2 Vital Signs: Vital Signs: Last Vital Signs Temp 97.5 F 07/30/23 20:00 Pulse 98 07/31/23 00:00 Resp 18 07/31/23 00:00 BP 137/63 07/30/23 20:00 Pulse Ox 97 07/30/23 20:00 O2 Del Method Room Air 07/30/23 20:00 O2 Flow Rate 2 07/22/23 06:19 Oxygen Flow Rate 2 07/22/23 05:50 BMI result Body Mass Index 24.9 Const: General: cooperative, comfortable and no acute distress O rientation/consciousness: patient oriented x3 Limitations: no limitations HEENT: Head: Yes normal to inspection, Yes normocephalic and Yes atraumatic Ears: hearing grossly normal bilaterally General nose exam: Normal external nose present Face and sinus: Yes normal facial exam Mouth: Normal oral and palatal mucosa present, oropharynx normal and moist mucous membranes Throat: Yes posterior oropharynx normal Eyes: General: appearance normal, both eyes and all related structures E yelids: Yes eyelids normal Conjunctivae: conjunctivae normal Sclerae: s clerae normal Pupils: Equal, round and reactive pupils present EOM: EOMs intact bilaterally Neck: Neck: Yes normal visual inspection, Yes full ROM and Yes no lymphadenopathy Lymphatic: no lymphadenopathy noted Chest: Chest palpation & inspection: normal inspection of the chest Resp: Other: inspiratory and expiratory wheezes noted throughout all lung will, with fine crackles noted at bilateral lung bases Effort & Inspection: normal respiratory effort and able to speak in complete sentences Cardio: Rate: regular rate Rhythm: regular rhythm Heart sounds: S1 normal heart sound present and S2 normal heart sound present GI: Other: Rectal examination with external hemorrhoids noted, rectal examination performed with RNRomi at bedside. Dark stool noted, no jackeline red blood. Normal rectal tone. Inspection: Yes normal to inspection Skin: General skin exam: no rashes or lesions noted Trauma: no lacerations or abrasions Wounds: no wounds Neuro: General: patient oriented x3 and moves all extremities Cranial nerves: Yes Equal, round and reactive pupils present Extrem: General: Yes normal to inspection Right upper extremity: normal to inspection Left upper extremity: normal to inspection Right lower extremity: normal to inspection Left lower extremity: normal to inspection Course Reevaluation(s) Reevaluation #1: Second troponin 23, increased likely demand secondary to CHF. Lung sounds improved after receiving nebulizer. Oxygen saturation 92% on room air. Patient appears comfortable, resting comfortably in stretcher. Given normocytic anemia with positive stool occult, as well as elevated BNP with dyspnea, and increased respiratory effort, will admit patient to the hospital service for CHF exacerbation, anemia, and dypsnea given workup today. Patient is agreeable for hospitalization. Time: 09:41 Reevaluation #2: Spoke to hospitalist, who accepts patient. Transfer of care initiated. Time: 10:30 Medications Administered Generic Name Dose Route Start Last Admin Trade Name Freq PRN Reason Stop Dose Admin Acetaminophen 650 mg 07/22/23 15:18 07/29/23 07:50 Acetaminophen 325 Mg Tablet PO 650 mg Q6H PRN Administration Pain, Mild (Pain Scale 1-3) Albuterol/Ipratropium 3 ml 07/29/23 16:00 07/31/23 00:00 Albuterol/Iprat 2.5/0.5mg 3 Ml Ampul.Neb INHALE 3 ml RQ4H NARCISA Administration Amiodarone HCl 200 mg 07/22/23 15:20 07/30/23 07:58 Amiodarone Hcl 200 Mg Tablet PO 200 mg DAILY NARCISA Administration Ferrous Sulfate 324 mg 07/23/23 09:00 07/30/23 07:58 Ferrous Sulfate 324 Mg Tablet.Dr PO 324 mg DAILY NARCISA Administration Gabapentin 300 mg 07/22/23 21:00 07/30/23 21:36 Gabapentin 300 Mg Capsule PO 300 mg BID NARCISA Administration Guaifenesin 600 mg 07/24/23 09:00 07/30/23 21:36 Guaifenesin La 600 Mg Tab.Er.12h PO 600 mg BID NARCISA Administration Guaifenesin/Codeine Phosphate 10 ml 07/29/23 13:00 07/30/23 18:13 Guaifen/Codeine Sf 200/20/10ml 10 Ml Liquid PO 10 ml Q6H NARCISA Administration Hydralazine HCl 100 mg 07/29/23 09:00 07/30/23 21:36 Hydralazine Hcl 50 Mg Tablet PO 100 mg BID NARCISA Administration Protocol Furosemide 200 mg/ Sodium 100 mls @ 2.5 mls/hr 07/24/23 13:30 07/30/23 13:59 Chloride IVCONT 5 mg/hr .Q24H NARCISA 2.5 mls/hr Administration 5 MG/HR Insulin Glargine 20 unit 07/26/23 21:00 07/30/23 21:35 Insulin Glargine,Hum.Rec.Anlog 100 Unit/Ml 10 Ml Vial SUBCUT 20 unit BID NARCISA Administration Insulin Human Lispro 0 unit 07/22/23 21:00 07/30/23 21:34 Insulin Lispro 100 Unit/Ml 3 Ml Vial SUBCUT 4 unit QIDACHS NARCISA Administration Protocol Insulin Human Lispro 8 unit 07/30/23 11:30 07/30/23 21:35 Insulin Lispro 100 Unit/Ml 3 Ml Vial SUBCUT 8 unit QIDACHS [facility] Administration Isosorbide Dinitrate 20 mg 07/29/23 13:00 07/30/23 12:05 Isosorbide Dinitrate 20 Mg Tablet PO 20 mg 0800,1300 [facility] Administration Protocol Omeprazole 40 mg 07/22/23 21:00 07/30/23 17:14 Omeprazole 40 Mg Capsule.Dr PO 40 mg BID@0630,1630 NARCISA Administration Senna 17.2 mg 07/22/23 15:15 07/30/23 18:22 Sennosides 8.6 Mg Tablet PO 17.2 mg DAILY PRN Administration constipation Sitagliptin Phosphate 100 mg 07/23/23 09:00 07/30/23 07:58 Sitagliptin Phosphate 100 Mg Tablet PO 100 mg DAILY NARCISA Administration Sodium Chloride 3 ml 07/22/23 16:00 07/30/23 21:36 0.9 % Sodium Chloride Flush 3 Ml Syringe IVFLUSH 3 ml QSHIFT [facility] Administration Spironolactone 25 mg 07/22/23 21:00 07/30/23 21:36 Spironolactone 25 Mg Tablet PO 25 mg BID [facility] Administration Protocol Trazodone HCl 12.5 mg 07/29/23 02:06 07/29/23 02:24 Trazodone Hcl 25 Mg Halftab PO 12.5 mg BEDTIME PRN Administration Insomnia Warfarin Sodium 1 mg 07/22/23 18:00 07/30/23 18:13 Warfarin Sodium 1 Mg Tablet PO 1 mg Q48H NARCISA Administration Warfarin Sodium 2.5 mg 07/23/23 18:00 07/25/23 17:42 Warfarin Sodium 2.5 Mg Tablet PO 2.5 mg Q48H NARCISA Administration Discontinued Medications Generic Name Dose Route Start Last Admin Trade Name Freq PRN Reason Stop Dose Admin Albuterol Sulfate 2.5 mg/ 5 mg 07/22/23 11:37 07/22/23 11:39 Albuterol Sulfate 2.5 mg INHALE 07/22/23 11:38 5 mg ONCE ONE Administration Albuterol Sulfate 2.5 mg 07/22/23 16:00 07/24/23 11:19 Albuterol Sulfate (0.083%) 2.5 Mg/3 Ml Vial.Neb INHALE 2.5 mg RQ4H WHILE AWAKE NARCISA Administration Albuterol Sulfate 7.5 mg/ 10 mg 07/28/23 09:41 07/28/23 09:55 Albuterol Sulfate 2.5 mg INHALE 07/28/23 09:42 10 mg ONCE ONE Administration Albuterol/Ipratropium 3 ml 07/22/23 23:04 07/23/23 08:16 Albuterol/Iprat 2.5/0.5mg 3 Ml Ampul.Neb INHALE 3 ml Q4H PRN Administration Wheezing Benzonatate 200 mg 07/22/23 20:06 07/22/23 20:15 Benzonatate 100 Mg Capsule PO 200 mg TID PRN Administration cough Benzonatate 200 mg 07/23/23 09:30 07/23/23 22:02 Benzonatate 100 Mg Capsule PO Not Given TID [facility] Albuterol Sulfate 5 mg/ 0 mg 07/22/23 10:29 07/22/23 10:33 Albuterol/Ipratropium 3 ml INHALE 07/22/23 10:30 5 each ONCE ONE Administration Digoxin 0.25 mg 07/24/23 13:00 07/24/23 20:54 Digoxin 0.5 Mg/2 Ml Ampul IVPUSH 07/24/23 19:01 0.25 mg Q6H NARCISA Administration Fluconazole 150 mg 07/26/23 11:40 07/26/23 12:31 Fluconazole 150 Mg Tablet PO 07/26/23 11:41 150 mg ONCE ONE Administration Furosemide 40 mg 07/22/23 06:54 07/22/23 07:25 Furosemide 40 Mg/4 Ml Vial IVPUSH 07/22/23 06:55 40 mg ONCE ONE Administration Protocol Furosemide 40 mg 07/22/23 18:00 07/24/23 19:01 Furosemide 40 Mg/4 Ml Vial IVPUSH Not Given BID@0900,1800 [facility] Protocol Guaifenesin/Codeine Phosphate 5 ml 07/22/23 20:19 07/28/23 02:57 Guaifen/Codeine Sf 200/20/10ml 10 Ml Liquid PO 5 ml Q6H PRN Administration cough Guaifenesin/Codeine Phosphate 10 ml 07/28/23 09:53 07/29/23 07:53 Guaifen/Codeine Sf 200/20/10ml 10 Ml Liquid PO 10 ml Q6H PRN Administration cough Hydralazine HCl 10 mg 07/24/23 21:00 07/25/23 07:40 Hydralazine Hcl 10 Mg Tablet PO 10 mg BID NARCISA Administration Protocol Hydralazine HCl 25 mg 07/25/23 21:00 07/27/23 08:51 Hydralazine Hcl 25 Mg Tablet PO 25 mg BID NARCISA Administration Protocol Hydralazine HCl 50 mg 07/27/23 21:00 07/29/23 07:51 Hydralazine Hcl 50 Mg Tablet PO 50 mg BID NARCISA Administration Protocol Hydroxyzine HCl 25 mg 07/22/23 23:04 07/22/23 23:13 Hydroxyzine Hcl 25 Mg Tablet PO 07/22/23 23:05 25 mg ONCE ONE Administration Ceftriaxone Sodium 1 gm/ 50 mls @ 100 mls/hr 07/22/23 06:57 07/22/23 09:10 Sodium Chloride IV 07/22/23 07:26 Infused ONCE ONE Infusion Sodium Chloride 100 mls @ 100 mls/hr 07/24/23 13:08 07/24/23 19:40 Ns IV 07/24/23 14:07 Infused ONCE ONE Infusion Doxycycline Hyclate 100 mg/ 250 mls @ 166.67 mls/hr 07/26/23 11:45 07/28/23 10:26 Sodium Chloride IV Infused BID NARCISA Infusion Magnesium Sulfate 2 gm in 50 mls @ 25 mls/hr 07/28/23 09:41 07/28/23 12:56 Magnesium Sulfate/H2o IV 07/28/23 11:40 Infused ONCE ONE Infusion Insulin Glargine 15 unit 07/25/23 21:25 07/26/23 08:18 Insulin Glargine,Hum.Rec.Anlog 100 Unit/Ml 10 Ml Vial SUBCUT 15 unit BID [facility] Administration Insulin Human Lispro 5 unit 07/23/23 16:30 07/26/23 12:35 Insulin Lispro 100 Unit/Ml 3 Ml Vial SUBCUT Not Given QIDACHS [facility] Insulin Human Lispro 6 unit 07/26/23 16:30 07/30/23 07:57 Insulin Lispro 100 Unit/Ml 3 Ml Vial SUBCUT 6 unit QIDACHS [facility] Administration Insulin Human Regular 10 unit 07/22/23 20:42 07/22/23 21:04 Insulin Regular, Human 100 Unit/Ml 3 Ml Vial IVPUSH 07/22/23 20:43 10 unit ONCE ONE Administration Isosorbide Dinitrate 5 mg 07/24/23 13:00 07/25/23 07:40 Isosorbide Dinitrate 5 Mg Tablet PO 5 mg 0800,1300 NARCISA Administration Protocol Isosorbide Dinitrate 10 mg 07/25/23 13:00 07/29/23 07:51 Isosorbide Dinitrate 10 Mg Tablet PO 10 mg 0800,1300 NARCISA Administration Protocol Levalbuterol HCl 1.25 mg 07/24/23 14:00 07/29/23 07:46 Levalbuterol Hcl 1.25 Mg/3 Ml Vial.Neb INHALE 1.25 mg RTID NARCISA Administration Lorazepam 0.5 mg 07/23/23 05:23 07/23/23 05:59 Lorazepam 0.5 Mg Tablet PO 07/23/23 05:24 0.5 mg ONCE ONE Administration Lorazepam 0.25 mg 07/23/23 10:06 07/24/23 22:36 Lorazepam 0.5 Mg Tablet PO 0.25 mg Q6H PRN Administration Anxiety Lorazepam 0.25 mg 07/30/23 21:28 07/30/23 22:13 Lorazepam 0.5 Mg Tablet PO 07/30/23 21:29 0.25 mg ONCE ONE Administration Methylprednisolone Sodium Succinate 125 mg 07/22/23 06:51 07/22/23 07:25 Methylprednisolone Sod Succ 125 Mg/2 Ml Vial IVPUSH 07/22/23 06:52 125 mg ONCE ONE Administration Methylprednisolone Sodium Succinate 40 mg 07/22/23 15:15 07/23/23 05:59 Methylprednisolone Sod Succ 40 Mg/Ml Vial IVPUSH 40 mg Q8H NARCISA Administration Methylprednisolone Sodium Succinate 40 mg 07/23/23 09:30 07/25/23 07:39 Methylprednisolone Sod Succ 40 Mg/Ml Vial IVPUSH 40 mg Q12H NARCISA Administration Methylprednisolone Sodium Succinate 60 mg 07/25/23 16:00 07/27/23 08:51 Methylprednisolone Sod Succ 40 Mg/Ml Vial IVPUSH 60 mg Q8H NARCISA Administration Methylprednisolone Sodium Succinate 60 mg 07/27/23 21:00 07/30/23 07:56 Methylprednisolone Sod Succ 40 Mg/Ml Vial IVPUSH 60 mg Q12H NARCISA Administration Methylprednisolone Sodium Succinate 60 mg 07/28/23 09:50 07/28/23 10:40 Methylprednisolone Sod Succ 125 Mg/2 Ml Vial IVPUSH 07/28/23 09:51 Not Given ONCE ONE Methylprednisolone Sodium Succinate 125 mg 07/28/23 09:50 07/28/23 10:40 Methylprednisolone Sod Succ 125 Mg/2 Ml Vial IVPUSH 07/28/23 09:51 65 mg ONCE ONE Administration Medical Decision Making Medical Decision Making [facility] Narrative: 63-year-old female, past medical history of PAF on Coumadin, CHF, diabetes, COPD, MVR replacement mechanical valve, presenting to the emergency department with complaints of shortness of breath since last night at 10:00 p.m. on arrival, respiration rate 28, patient's O2 96% on 2L NC. patient with inspiratory and expiratory wheezes noted throughout all lung will with crackles at the lower lung base. Patient with a hemoglobin hematocrit of 8.2/25.3, BNP 371, troponin 21.4. EKG revealing atrial fibrillation with premature ventricular complexes. Inverted T-waves seen in V5 and V6, this is seen in previous EKGs. I believe that patient has several things occurring, she has had a drop in her hemoglobin hematocrit, as well as inspiratory and expiratory wheezes, consistent with possible COPD exacerbation as well as slight elevation BNP with increased interstitial lung markings seen in chest x-ray consistent with CHF. I discussed this with my attending physician, Dr. Cano to recommends placing patient on BiPAP, administering IV Lasix, IV ceftriaxone, and IV Solu-Medrol. Patient refusing BiPAP at this time, will continue on 2 L nasal cannula. Differential Diagnosis Differential Diagnoses: The differential diagnosis associated with the presentation includes Pneumonia, CHF, bronchitis, viral syndrome, COPD exacerbation Admission/Observation Consideration of admission/observation: Escalation of care including admission/observation considered Consult Healthcare Provider Management of the patient was discussed with: Hospitalist Lab Data [facility] Lab Attestation statement: I reviewed the patient's lab results. hemoglobin hematocrit 8.2/25.3, troponin 21.4, BNP 371, viral swabs negative 07/28/23 06:59 07/30/23 06:11 Labs: Lab Results 07/22/23 07/22/23 07/22/23 Range/Units 05:47 07:12 08:17 WBC 6.3 (4.8-10.8) X10*3/uL RBC 2.95 L (4.20-5.50) X10*6/uL Hgb 8.2 L (12.0-16.0) g/dl Hct 25.3 L (37.0-47.0) % MCV 85.8 (80.0-98.0) fL MCH 27.8 (27.0-33.0) pg MCHC 32.4 (31.0-35.0) g/dl RDW 16.6 H (11.0-16.0) % Plt Count 147 L D (160-400) X10*3/uL MPV 9.2 L (9.4-12.3) fL Immature Gran % (Auto) 1.3 H (0.0-0.4) % Neut % (Auto) 77.1 H (45-73) % Lymph % (Auto) 11.7 L (20-40) % Brooke % (Auto) 8.5 (2-11) % Eos % (Auto) 0.8 (0-4) % Baso % (Auto) 0.6 (0-2) % Lymph # (Auto) 0.7 L (1.2-4.9) X10*3/uL Brooke # (Auto) 0.5 (0.1-1.2) X10*3/uL Eos # (Auto) 0.1 (0.0-0.4) X10*3/uL Baso # (Auto) 0.0 (0.0-0.2) X10*3/uL Abs Immat Gran (auto) 0.08 H (0.00-0.03) X10*3/uL Absolute Neuts (auto) 4.9 (2.0-8.3) x10*3/uL Absolute Nucleated RBC 0.000 (0.0-0.012) X10*3/uL Nucleated RBC % (auto) 0.0 (0.0-0.2) /100WBC PT (11.1-13.3) SEC INR (0.9-1.1) APTT (26.0-36.4) SEC Sodium 136 (135-145) mmol/L Potassium 3.5 (3.3-5.1) mmol/L Chloride 103 (96-108) mmol/L Carbon Dioxide 23 (22-29) mmol/L Anion Gap 14 (12-20) BUN 30 H (9-16) mg/dL Creatinine 1.13 (0.5-1.4) mg/dL Estim Creat Clear Calc 44.6 Estimated GFR 48 Random Glucose 170 H (60-115) mg/dL Lactic Acid 1.0 (0.5-2.0) mmol/L Calcium 8.8 D (8.4-10.2) mg/dL Troponin I High Sens 21.4 H (<3.5-17.0) ng/L B-Natriuretic Peptide 371 H (<100) pg/mL Urine Color Urine Appearance Urine pH (5.0-9.0) Ur Specific [place] (1.005-1.025) Urine Protein (Neg-Trace) mg/dL Urine Glucose (UA) (Negative) mg/dL Urine Ketones (Negative) mg/dL Urine Blood (Negative) Urine Nitrite (Negative) Ur Leukocyte Esterase (Negative) Urine RBC (0-2) /HPF Urine WBC (0-5) /HPF Ur Squamous Epith Cells (0-2) /HPF Urine Bacteria (None Seen) Hyaline Casts (0-2) /LPF Stool Occult Blood POSITIVE (NEGATIVE) Influenza Type A (PCR) NEGATIVE (Negative) Influenza Type B (PCR) NEGATIVE (Negative) RSV RNA Qual (PCR) NEGATIVE (Negative) SARS-CoV-2 RNA (RT-PCR) NEGATIVE (Negative) Blood Type Antibody Screen Crossmatch 07/22/23 07/22/23 07/22/23 Range/Units 09:10 10:39 13:19 WBC (4.8-10.8) X10*3/uL RBC (4.20-5.50) X10*6/uL Hgb (12.0-16.0) g/dl Hct (37.0-47.0) % MCV (80.0-98.0) fL MCH (27.0-33.0) pg MCHC (31.0-35.0) g/dl RDW (11.0-16.0) % Plt Count (160-400) X10*3/uL MPV (9.4-12.3) fL Immature Gran % (Auto) (0.0-0.4) % Neut % (Auto) (45-73) % Lymph % (Auto) (20-40) % Brooke % (Auto) (2-11) % Eos % (Auto) (0-4) % Baso % (Auto) (0-2) % Lymph # (Auto) (1.2-4.9) X10*3/uL Brooke # (Auto) (0.1-1.2) X10*3/uL Eos # (Auto) (0.0-0.4) X10*3/uL Baso # (Auto) (0.0-0.2) X10*3/uL Abs Immat Gran (auto) (0.00-0.03) X10*3/uL Absolute Neuts (auto) (2.0-8.3) x10*3/uL Absolute Nucleated RBC (0.0-0.012) X10*3/uL Nucleated RBC % (auto) (0.0-0.2) /100WBC PT 24.0 H D (11.1-13.3) SEC INR 2.0 H D (0.9-1.1) APTT 36.8 H (26.0-36.4) SEC Sodium (135-145) mmol/L Potassium (3.3-5.1) mmol/L Chloride (96-108) mmol/L Carbon Dioxide (22-29) mmol/L Anion Gap (12-20) BUN (9-16) mg/dL Creatinine (0.5-1.4) mg/dL Estim Creat Clear Calc Estimated GFR Random Glucose (60-115) mg/dL Lactic Acid (0.5-2.0) mmol/L Calcium (8.4-10.2) mg/dL Troponin I High Sens 23.0 H (<3.5-17.0) ng/L B-Natriuretic Peptide (<100) pg/mL Urine Color Yellow Urine Appearance Clear Urine pH 5.5 (5.0-9.0) Ur Specific [place] 1.010 (1.005-1.025) Urine Protein Negative (Neg-Trace) mg/dL Urine Glucose (UA) Negative (Negative) mg/dL Urine Ketones Negative (Negative) mg/dL Urine Blood Negative (Negative) Urine Nitrite Negative (Negative) Ur Leukocyte Esterase Trace H (Negative) Urine RBC 0-2 (0-2) /HPF Urine WBC 0-5 (0-5) /HPF Ur Squamous Epith Cells 3-5 (0-2) /HPF Urine Bacteria None Seen (None Seen) Hyaline Casts 0-2 (0-2) /LPF Stool Occult Blood (NEGATIVE) Influenza Type A (PCR) (Negative) Influenza Type B (PCR) (Negative) RSV RNA Qual (PCR) (Negative) SARS-CoV-2 RNA (RT-PCR) (Negative) Blood Type O Positive Antibody Screen NEGATIVE Crossmatch See Detail Independent Interpretation I performed an independent interpretation of an: EKG Interpretation: EKG revealing atrial fibrillation with PVCs at a ventricular rate of 89 beats per minute, there is slight ST depression seat in V5 and V6 which is also seen on previous EKGs. Radiology Impression Discussion of test interpretation with radiology: I have reviewed the radiologist's reading. Radiologist Impression: EXAMINATION: XR CHEST CLINICAL INFORMATION: Shortness of breath. COMPARISON: 06/14/2023. TECHNIQUE: Frontal view of the chest was obtained. FINDINGS: The cardiac silhouette is enlarged. There is mild diffuse increased interstitial markings which were present previously. There is no focal lung consolidation or pleural effusion. There has been a previous median sternotomy. A Mediport extends to the lower SVC. The bony structures are osteopenic. The soft tissues are unremarkable. XR/XR chest 1V IMPRESSION: Cardiomegaly. Mild diffuse increased interstitial markings which were present previously. This may be chronic. Consider the possibility of recurrent edema. Dictated By: Levi Hoover Critical Care Time Critical Care Time Critical Care Time: Yes Total Critical Care Time: 60 Attestation: I have personally provided critical care time exclusive of time spent on separately billable procedures. Time includes review of lab data, radiology results, discussion with consultants, and monitoring for potential decompensation. Intervention performed as documented. Discharge Plan Discharge Clinical Impression: Dyspnea, Anemia, Positive occult stool blood test CHF exacerbation Qualifiers: Heart failure type: unspecified Qualified Code(s): I50.9 - Heart failure, unspecified Patient Disposition: Still a Patient Interventions: Admission Worksheet (ED) Last Done: 07/22/23 17:45 Discharge Date/Time: 07/22/23 20:02
--- NOTE | 2023-07-22 09:05 | PC.NURSE ---
patient ambulated to bathroom 1 assist steady gait
[2023-07-22] MEDS: Albuterol Sulfate 2.5 MG, Albuterol Sulfate (0.083%) 2.5 MG 5 MG INHALE (11:39)
--- NOTE | 2023-07-22 12:34 | PHA.MEDREC ---
Pharmacy Consult ? Medication Reconciliation Pharmacy has completed the medication reconciliation. spoke with patient to confirm medications. Last brain picker for amiodarone was 03/23/23 for a 90 DS. She reports that her warfarin changes every week and is currently doing 2.5mg QOD and 1mg QOD. She reports taking the 2.5mg yesterday.
--- NOTE | 2023-07-22 15:23 | PM.IMHP ---
History of Present Illness Date of Service: 07/22/23 Chief Complaint: SOB 63-year-old woman presenting to the ER with complaints of worsening shortness of breath and cough since yesterday evening. She reports that she was watching TV and suddenly developed shortness of breath. Denied chest pain, palpitations, nausea, vomiting, diarrhea. Reports that she had nasal congestion and a productive cough over the last week. She did report some chills. Chest x-ray showed cardiomegaly with mild diffuse increased interstitial markings, BNP 371, troponin 23, stool occult positive, no fever leukocytosis noted. Patient was given a dose of Rocephin, IV Lasix, Solu-Medrol, albuterol in the ER. She will be admitted for further management and treatment of acute congestive heart failure and asthma exacerbation. Review of Systems Review of Systems: Denies any recent fever chills or decrease in appetite respiratory reported shortness of breath with exertion cardiovascular denies chest pain gastrointestinal denies any dysphagia abdominal pain nausea vomiting or diarrhea genitourinary denies any dysuria frequency or hematuria musculoskeletal denies any joint pain or swelling neuropsych denies any weakness or seizures all other systems reviewed are negative [facility] Medical History (Updated 07/22/23 @ 10:06 by HERO Wang) Ovarian cancer Tricuspid valve insufficiency, non-rheumatic Non-rheumatic aortic stenosis Persistent atrial fibrillation Family History Mother Heart disease Father Heart disease Diabetes Surgical History (Updated 06/23/23 @ 00:03 by Darius Ravi) H/O mitral valve replacement with mechanical valve Social History Household Members: Spouse Housing: Apartment Do you presently have visiting nurse or other home services: No (no more as of two weeks ago) Alcohol intake: never Patient Tobacco Use Status: Former Tobacco user Quit Date: 1990 Years Smoked: 4 +/- Smoked in Last 30 Days: No Use of substances other than those prescribed or required for medical reasons: No Advance Directives: No Advance Directives Information Provided: Yes service: No Meds Allergies Allergy/AdvReac Type Severity Reaction Status Date / Time lisinopril [LISINOPRIL] Allergy Severe ANGIOEDEMA Verified 06/14/23 09:53 morphine [MORPHINE] Allergy Severe ANAPHYLAXIS Verified 06/14/23 09:53 penicillin V Allergy Intermediate Itching Verified 06/14/23 09:53 cefaclor [From CECLOR] Allergy Unknown HIVES Verified 06/14/23 09:53 ciprofloxacin Allergy Unknown itchy Verified 06/14/23 09:53 codeine Allergy Unknown HIVES Verified 06/14/23 09:53 methylprednisolone Allergy Unknown Unknown Verified 06/14/23 09:53 nitrofurantoin Allergy Unknown Unknown Verified 06/14/23 09:53 olmesartan [Benicar] Allergy Unknown Unknown Verified 06/14/23 09:53 Penicillins Allergy Unknown HIVES Verified 06/14/23 09:53 Sulfa (Sulfonamide Allergy Unknown HIVES Verified 06/14/23 09:53 Antibiotics) hydromorphone [From Dilaudid] AdvReac Shakiness Verified 06/14/23 09:53 odansetron Allergy Severe Hives Uncoded 06/14/23 09:53 Metoprolol Succinate Allergy Intermediate Hives Uncoded 06/14/23 09:53 celcor Allergy Unknown itchy Uncoded 06/14/23 09:53 Gentamicin in Saline Allergy Unknown hives Uncoded 06/14/23 09:53 Gentamicin Sulfate Allergy Unknown hives Uncoded 06/14/23 09:53 Latex Allergy Unknown Itching Uncoded 06/14/23 09:53 latex Allergy Unknown Itching Uncoded 06/14/23 09:53 sulfonamides Allergy Unknown Unknown Uncoded 06/14/23 09:53 vioxx Allergy Unknown Itching Uncoded 06/14/23 09:53 Bicitra AdvReac Unknown unknown Uncoded 06/14/23 09:53 Active Medications: Current Medications Albuterol Sulfate (Albuterol Sulfate (0.083%) 2.5 Mg/3 Ml Vial.Neb) 2.5 mg INHALE RQ4H WHILE AWAKE [facility] Amiodarone HCl (Amiodarone Hcl 200 Mg Tablet) 200 mg PO DAILY [facility] Furosemide (Furosemide 40 Mg/4 Ml Vial) 40 mg IVPUSH BID@0900,1800 [facility]; Protocol Gabapentin (Gabapentin 300 Mg Capsule) 300 mg PO BID [facility] Methylprednisolone Sodium Succinate (Methylprednisolone Sod Succ 40 Mg/Ml Vial) 40 mg IVPUSH Q8H [facility] Non-Formulary Medication (Ferrous Sulfate) 325 mg PO DAILY [facility] Omeprazole (Omeprazole 40 Mg Capsule.Dr) 40 mg PO BID [facility] Senna (Sennosides 8.6 Mg Tablet) 17.2 mg PO DAILY PRN PRN Reason: constipation Sitagliptin Phosphate (Sitagliptin Phosphate 100 Mg Tablet) 100 mg PO DAILY [facility] Spironolactone (Spironolactone 25 Mg Tablet) 25 mg PO BID [facility]; Protocol Warfarin Sodium (Warfarin Sodium 1 Mg Tablet) 1 mg PO Q OTHER DAY [facility] Warfarin Sodium (Warfarin Sodium 2.5 Mg Tablet) 2.5 mg PO Q OTHER DAY [facility] Home Medications Medication Instructions Recorded Confirmed Last Taken Type sitagliptin phosphate 100 mg 100 mg PO DAILY 11/16/22 07/22/23 06/13/23 History tablet (Januvia) warfarin 2.5 mg tablet 2.5 mg PO Q OTHER DAY 11/16/22 07/22/23 07/21/23 History omeprazole 40 mg capsule,delayed 40 mg PO BID 03/01/23 07/22/23 06/13/23 History release beclomethasone diprop (AQ) 42 mcg 1 spray intranasal BID 06/14/23 07/22/23 06/13/23 History (0.042 %) nasal spray (Beconase AQ) ferrous sulfate 325 mg (65 mg 325 mg PO DAILY 06/14/23 07/22/23 06/13/23 History iron) tablet,delayed release gabapentin 300 mg capsule 300 mg PO BID 06/14/23 07/22/23 06/13/23 History sennosides 8.6 mg tablet (senna) 17.2 mg PO DAILY PRN constipation 06/14/23 07/22/23 06/13/23 History albuterol sulfate 2.5 mg/3 mL 2.5 mg inhalation Q2-4H PRN 07/22/23 07/22/23 Unknown History (0.083 %) solution for nebulization Shortness Of Breath Or Wheezing codeine 10 mg-guaifenesin 100 mg/5 5 ml PO Q4H PRN Cough 07/22/23 07/22/23 07/20/23 History mL oral liquid mepolizumab 100 mg subcutaneous 100 mg subcut QMONTH 07/22/23 07/22/23 Unknown History solution (Nucala) warfarin 1 mg tablet 1 mg PO Q OTHER DAY 07/22/23 07/22/23 07/20/23 History Physical Exam Vital Signs and Narrative: Vital Signs: Last Vital Signs Temp 98.3 F 07/22/23 07:10 Pulse 103 H 07/22/23 14:44 Resp 25 H 07/22/23 14:44 BP 134/49 L 07/22/23 14:44 Pulse Ox 94 07/22/23 14:44 O2 Del Method Room Air 07/22/23 14:44 O2 Flow Rate 2 07/22/23 06:19 Oxygen Flow Rate 2 07/22/23 05:50 BMI result Body Mass Index 24.9 Appearing in no acute distress head is normocephalic atraumatic eyes pupils are PERRLA sclera is anicteric mouth throat mucous membranes are intact and moist neck is supple no lymphadenopathy, no JVD noted lung sounds expiratory wheezing heart regular rate rhythm, clear S1, S2 positive bowel sounds, abdomen is soft, nontender neuro patient is alert x3, no focal deficits Results Labs 07/22/23 05:47 07/22/23 05:47 Labs: Laboratory Results - last 24 hr 07/22/23 07/22/23 07/22/23 05:47 07:12 08:17 MCV 85.8 MCH 27.8 MCHC 32.4 RDW 16.6 H Plt Count 147 L D MPV 9.2 L Immature Gran % (Auto) 1.3 H Neut % (Auto) 77.1 H Lymph % (Auto) 11.7 L Beaver % (Auto) 8.5 Eos % (Auto) 0.8 Baso % (Auto) 0.6 Lymph # (Auto) 0.7 L Beaver # (Auto) 0.5 Eos # (Auto) 0.1 Baso # (Auto) 0.0 Abs Immat Gran (auto) 0.08 H Absolute Neuts (auto) 4.9 Absolute Nucleated RBC 0.000 Nucleated RBC % (auto) 0.0 PT INR APTT Anion Gap 14 Estim Creat Clear Calc 44.6 Estimated GFR 48 Random Glucose 170 H Lactic Acid 1.0 Calcium 8.8 D B-Natriuretic Peptide 371 H Urine Color Urine Appearance Urine pH Ur Specific Withams Urine Protein Urine Glucose (UA) Urine Ketones Urine Blood Urine Nitrite Ur Leukocyte Esterase Urine RBC Urine WBC Ur Squamous Epith Cells Urine Bacteria Hyaline Casts Stool Occult Blood POSITIVE Influenza Type A (PCR) NEGATIVE Influenza Type B (PCR) NEGATIVE RSV RNA Qual (PCR) NEGATIVE SARS-CoV-2 RNA (RT-PCR) NEGATIVE Blood Type Antibody Screen 07/22/23 07/22/23 07/22/23 09:10 10:39 13:19 MCV MCH MCHC RDW Plt Count MPV Immature Gran % (Auto) Neut % (Auto) Lymph % (Auto) Beaver % (Auto) Eos % (Auto) Baso % (Auto) Lymph # (Auto) Beaver # (Auto) Eos # (Auto) Baso # (Auto) Abs Immat Gran (auto) Absolute Neuts (auto) Absolute Nucleated RBC Nucleated RBC % (auto) PT 24.0 H D INR 2.0 H D APTT 36.8 H Anion Gap Estim Creat Clear Calc Estimated GFR Random Glucose Lactic Acid Calcium B-Natriuretic Peptide Urine Color Yellow Urine Appearance Clear Urine pH 5.5 Ur Specific Withams 1.010 Urine Protein Negative Urine Glucose (UA) Negative Urine Ketones Negative Urine Blood Negative Urine Nitrite Negative Ur Leukocyte Esterase Trace H Urine RBC 0-2 Urine WBC 0-5 Ur Squamous Epith Cells 3-5 Urine Bacteria None Seen Hyaline Casts 0-2 Stool Occult Blood Influenza Type A (PCR) Influenza Type B (PCR) RSV RNA Qual (PCR) SARS-CoV-2 RNA (RT-PCR) Blood Type O Positive Antibody Screen NEGATIVE Imaging Radiologist's Impressions: Impressions Chest X-Ray 07/22/23 06:15 IMPRESSION: Cardiomegaly. Mild diffuse increased interstitial markings which were present previously. This may be chronic. Consider the possibility of recurrent edema. Assessment and Plan (1) Anemia: Status: Acute Plan 63-year-old woman admitted with acute congestive heart failure exacerbation and asthma exacerbation Heart failure with reduced ejection fraction Last echocardiogram in 11/2022 was 25-30% Treat with IV Lasix 40 mg b.i.d. Cardiology consultation Monitor on guest relations coordinator daily weight Strict intake and output Asthma exacerbation Solu-Medrol Schedule DuoNebs supplemental oxygen as needed Persistent atrial fibrillation Heart rate controlled Continue amiodarone Warfarin Check PT INR daily Diabetes mellitus type 2 Sliding scale Check A1c in the morning DVT prophylaxis with warfarin Attending Dr. Reveles Full code patient requires 2 inpatient midnights for treatment of acute congestive heart failure requiring IV diuretics and specialty consultation Quality Stroke Does the patient have a stroke diagnosis?: No VTE Prior VTE?: No VTE Risk Level:: Medical - moderate - high VTE Device Contraindication: Treatment Not Indicated VTE Drug Contraindication: N/A - Med Ordered
--- NOTE | 2023-07-22 19:25 | PC.NURSE ---
assumed care of pt at this time. awaiting transport to [facility]. report given to [facility] nurse [phone] by previous RN.
[2023-07-23] VITALS (10 sets, daily range): BP systolic 127–145; BP diastolic 58–69; PULSE 81–100; RESP 16–20; TEMP 36.6–37.1; O2SAT 94–98; BMI 24.9
--- NOTE | 2023-07-23 09:25 | HO.PM.IMPN ---
Subjective Subjective Date of Service: 07/23/23 Review of Systems Follow up CHF, asthma exacerbation breathing better still with cough now with back pain from bed and leg pain from neuropathy Physical Exam Vital Signs: Vital Signs: Last Vital Signs Temp 98.7 F 07/23/23 07:19 Pulse 92 07/23/23 08:18 Resp 20 07/23/23 08:18 BP 134/62 07/23/23 07:19 Pulse Ox 94 07/23/23 07:19 O2 Del Method Room Air 07/23/23 07:19 O2 Flow Rate 2 07/22/23 06:19 Oxygen Flow Rate 2 07/22/23 05:50 BMI result Body Mass Index 24.9 Appearing in no acute distress lung sounds are clear to auscultation heart regular rate rhythm, clear S1, S2 positive bowel sounds, abdomen is soft, nontender neuro patient is alert x3, no focal deficits Objective Data Active Medications Acetaminophen (Acetaminophen 325 Mg Tablet) 650 mg PO Q6H PRN PRN Reason: Pain, Mild (Pain Scale 1-3) Last Admin: 07/23/23 08:06 Dose: 650 mg Documented By: LATRICE Albuterol Sulfate (Albuterol Sulfate (0.083%) 2.5 Mg/3 Ml Vial.Neb) 2.5 mg INHALE RQ4H WHILE AWAKE [facility] Last Admin: 07/23/23 08:19 Dose: Not Given Documented By: KEMI Non-Admin Reason: See Note Albuterol/Ipratropium (Albuterol/Iprat 2.5/0.5mg 3 Ml Ampul.Neb) 3 ml INHALE Q4H PRN PRN Reason: Wheezing Last Admin: 07/23/23 08:16 Dose: 3 ml Documented By: KEMI Amiodarone HCl (Amiodarone Hcl 200 Mg Tablet) 200 mg PO DAILY [facility] Last Admin: 07/23/23 08:07 Dose: 200 mg Documented By: LATRICE Benzonatate (Benzonatate 100 Mg Capsule) 200 mg PO TID [facility] Dextrose (Dextrose 50 % 25 Gm/50 Ml Syringe) 25 gm IVPUSH Q15M PRN; Protocol PRN Reason: per Hypoglycemia Standing Ord. Ferrous Sulfate (Ferrous Sulfate 324 Mg Tablet.) 324 mg PO DAILY [facility] Last Admin: 07/23/23 08:07 Dose: 324 mg Documented By: LATRICE Furosemide (Furosemide 40 Mg/4 Ml Vial) 40 mg IVPUSH BID@0900,1800 [facility]; Protocol Last Admin: 07/23/23 08:07 Dose: 40 mg Documented By: LATRICE Gabapentin (Gabapentin 300 Mg Capsule) 300 mg PO BID [facility] Last Admin: 07/23/23 08:06 Dose: 300 mg Documented By: LATRICE Glucose (Glucose Gel 15 Gm Gel..Gram.) 15 gm PO Q15M PRN; Protocol PRN Reason: per Hypoglycemia Standing Ord. Guaifenesin/Codeine Phosphate (Guaifen/Codeine Sf 200/20/10ml 10 Ml Liquid) 5 ml PO Q6H PRN PRN Reason: cough Last Admin: 07/22/23 21:04 Dose: 5 ml Documented By: JONATHAN Insulin Human Lispro (Insulin Lispro 100 Unit/Ml 3 Ml Vial) 0 unit SUBCUT QIDACHS [facility]; Protocol Last Admin: 07/23/23 08:15 Dose: 10 unit Documented By: LATRICE Lorazepam (Lorazepam 2 Mg/Ml Vial) 0.25 mg IM Q6H PRN PRN Reason: Anxiety Methylprednisolone Sodium Succinate (Methylprednisolone Sod Succ 40 Mg/Ml Vial) 40 mg IVPUSH Q8H [facility] Last Admin: 07/23/23 05:59 Dose: 40 mg Documented By: JONATHAN Omeprazole (Omeprazole 40 Mg Capsule.Dr) 40 mg PO BID@0630,1630 [facility] Last Admin: 07/23/23 05:59 Dose: 40 mg Documented By: JONATHAN Ondansetron HCl (Ondansetron Hcl 4 Mg/2 Ml Vial) 4 mg IVPUSH Q8H PRN PRN Reason: Nausea and Vomiting Senna (Sennosides 8.6 Mg Tablet) 17.2 mg PO DAILY PRN PRN Reason: constipation Sitagliptin Phosphate (Sitagliptin Phosphate 100 Mg Tablet) 100 mg PO DAILY [facility] Last Admin: 07/23/23 08:07 Dose: 100 mg Documented By: LATRICE Sodium Chloride (0.9 % Sodium Chloride Flush 3 Ml Syringe) 3 ml IVFLUSH QSHIFT [facility] Last Admin: 07/23/23 08:08 Dose: 3 ml Documented By: LATRICE Spironolactone (Spironolactone 25 Mg Tablet) 25 mg PO BID [facility]; Protocol Last Admin: 07/23/23 08:06 Dose: 25 mg Documented By: LATRICE Warfarin Sodium (Warfarin Sodium 1 Mg Tablet) 1 mg PO Q48H [facility] Last Admin: 07/22/23 18:59 Dose: 1 mg Documented By: BRENTON Warfarin Sodium (Warfarin Sodium 2.5 Mg Tablet) 2.5 mg PO Q48H [facility] Labs 07/22/23 05:47 07/22/23 05:47 Labs: Laboratory Results - last 24 hr 07/22/23 07/22/23 07/22/23 10:39 13:19 20:16 PT 24.0 H D INR 2.0 H D APTT 36.8 H POC Glucose 495 H* Blood Type O Positive Antibody Screen NEGATIVE 07/23/23 07:23 PT INR APTT POC Glucose 395 H* Blood Type Antibody Screen Assessment and Plan (1) Anemia: Status: Acute (2) Dyspnea: Status: Acute Plan 63-year-old woman admitted with acute congestive heart failure exacerbation and asthma exacerbation Heart failure with reduced ejection fraction Last echocardiogram in 11/2022 was 25-30% Treat with IV Lasix 40 mg b.i.d. Cardiology consultation Monitor on product safety compliance leader daily weight Strict intake and output Asthma exacerbation no pna on cxr Solu-Medrol 40mg Q12h Schedule DuoNebs tesselon for cough supplemental oxygen as needed Back pain msk warm compress as needed tylenol prn Persistent atrial fibrillation Heart rate controlled Continue amiodarone Warfarin Check PT INR daily Diabetes mellitus type 2 with hyperglycemia likely from steroids Sliding scale, ada diet peripheral neuropathy, unspecified continue neurontin DVT prophylaxis with warfarin Attending Dr. Reveles Full code continued hospital stay for treatment of acute congestive heart failure requiring IV diuretics and specialty consultation Quality Stroke Does the patient have a stroke diagnosis?: No VTE Prior VTE?: No VTE Risk Level:: Medical - moderate - high VTE Device Contraindication: Treatment Not Indicated VTE Drug Contraindication: N/A - Med Ordered
--- NOTE | 2023-07-23 10:22 | MHC.CM.PN ---
IMM 07/23. Pt lives at home with her , self-care, uses a cane and a grab bar in the shower. Pts to transport her home at D/C. HCP copy requested. PCP: Dr. Devi Santoyo
--- NOTE | 2023-07-23 12:58 | PM.CNCAR ---
History of Present Illness History of Present Illness Date of Service: 07/23/23 Requesting physician: Nakia Bashir Chief complaint: CHF, Asthma exacerbation Narrative: [age] year female with known history of cardiomyopathy presenting with shortness of breath. She has also history of asthma. 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 In the ER she was noticed to be in congestive heart failure and was admitted. She also has elevated blood sugars due to prednisone. BNP level was 1793. She is significantly volume overloaded. EKG showing atrial fibrillation with heart rate in 80s. Nonspecific interventricular conduction delay. QTC 515 milliseconds. [facility] Past Medical History Medical History Ovarian cancer Tricuspid valve insufficiency, non-rheumatic Non-rheumatic aortic stenosis Persistent atrial fibrillation Family History Family History Mother Heart disease Father Heart disease Diabetes Surgical History Surgical History H/O mitral valve replacement with mechanical valve Social History Social History Household Members: Family Housing: House Do you presently have visiting nurse or other home services: Yes Alcohol intake: never Patient Tobacco Use Status: Former Tobacco user Quit Date: 1990 Years Smoked: 4 +/- service: No Meds Allergies Allergy/AdvReac Type Severity Reaction Status Date / Time lisinopril [LISINOPRIL] Allergy Severe ANGIOEDEMA Verified 06/14/23 09:53 morphine [MORPHINE] Allergy Severe ANAPHYLAXIS Verified 06/14/23 09:53 penicillin V Allergy Intermediate Itching Verified 06/14/23 09:53 cefaclor [From CECLOR] Allergy Unknown HIVES Verified 06/14/23 09:53 ciprofloxacin Allergy Unknown itchy Verified 06/14/23 09:53 codeine Allergy Unknown HIVES Verified 06/14/23 09:53 methylprednisolone Allergy Unknown Unknown Verified 06/14/23 09:53 nitrofurantoin Allergy Unknown Unknown Verified 06/14/23 09:53 olmesartan [Benicar] Allergy Unknown Unknown Verified 06/14/23 09:53 Penicillins Allergy Unknown HIVES Verified 06/14/23 09:53 Sulfa (Sulfonamide Allergy Unknown HIVES Verified 06/14/23 09:53 Antibiotics) hydromorphone [From Dilaudid] AdvReac Shakiness Verified 06/14/23 09:53 odansetron Allergy Severe Hives Uncoded 06/14/23 09:53 Metoprolol Succinate Allergy Intermediate Hives Uncoded 06/14/23 09:53 celcor Allergy Unknown itchy Uncoded 06/14/23 09:53 Gentamicin in Saline Allergy Unknown hives Uncoded 06/14/23 09:53 Gentamicin Sulfate Allergy Unknown hives Uncoded 06/14/23 09:53 Latex Allergy Unknown Itching Uncoded 06/14/23 09:53 latex Allergy Unknown Itching Uncoded 06/14/23 09:53 sulfonamides Allergy Unknown Unknown Uncoded 06/14/23 09:53 vioxx Allergy Unknown Itching Uncoded 06/14/23 09:53 Bicitra AdvReac Unknown unknown Uncoded 06/14/23 09:53 Active Medications: Current Medications Acetaminophen (Acetaminophen 325 Mg Tablet) 650 mg PO Q6H PRN PRN Reason: Pain, Mild (Pain Scale 1-3) Last Admin: 07/23/23 08:06 Dose: 650 mg Albuterol Sulfate (Albuterol Sulfate (0.083%) 2.5 Mg/3 Ml Vial.Neb) 2.5 mg INHALE RQ4H WHILE AWAKE [facility] Last Admin: 07/23/23 11:26 Dose: Not Given Albuterol/Ipratropium (Albuterol/Iprat 2.5/0.5mg 3 Ml Ampul.Neb) 3 ml INHALE Q4H PRN PRN Reason: Wheezing Last Admin: 07/23/23 08:16 Dose: 3 ml Amiodarone HCl (Amiodarone Hcl 200 Mg Tablet) 200 mg PO DAILY [facility] Last Admin: 07/23/23 08:07 Dose: 200 mg Benzonatate (Benzonatate 100 Mg Capsule) 200 mg PO TID [facility] Last Admin: 07/23/23 10:16 Dose: 200 mg Dextrose (Dextrose 50 % 25 Gm/50 Ml Syringe) 25 gm IVPUSH Q15M PRN; Protocol PRN Reason: per Hypoglycemia Standing Ord. Ferrous Sulfate (Ferrous Sulfate 324 Mg Tablet.) 324 mg PO DAILY [facility] Last Admin: 07/23/23 08:07 Dose: 324 mg Furosemide (Furosemide 40 Mg/4 Ml Vial) 40 mg IVPUSH BID@0900,1800 [facility]; Protocol Last Admin: 07/23/23 08:07 Dose: 40 mg Gabapentin (Gabapentin 300 Mg Capsule) 300 mg PO BID [facility] Last Admin: 07/23/23 08:06 Dose: 300 mg Glucose (Glucose Gel 15 Gm Gel..Gram.) 15 gm PO Q15M PRN; Protocol PRN Reason: per Hypoglycemia Standing Ord. Guaifenesin/Codeine Phosphate (Guaifen/Codeine Sf 200/20/10ml 10 Ml Liquid) 5 ml PO Q6H PRN PRN Reason: cough Last Admin: 07/22/23 21:04 Dose: 5 ml Insulin Human Lispro (Insulin Lispro 100 Unit/Ml 3 Ml Vial) 0 unit SUBCUT QIDACHS [facility]; Protocol Last Admin: 07/23/23 12:18 Dose: 15 unit Insulin Human Lispro (Insulin Lispro 100 Unit/Ml 3 Ml Vial) 5 unit SUBCUT QIDACHS [facility] Lorazepam (Lorazepam 0.5 Mg Tablet) 0.25 mg PO Q6H PRN PRN Reason: Anxiety Last Admin: 07/23/23 12:22 Dose: 0.25 mg Methylprednisolone Sodium Succinate (Methylprednisolone Sod Succ 40 Mg/Ml Vial) 40 mg IVPUSH Q12H [facility] Last Admin: 07/23/23 09:56 Dose: Not Given Omeprazole (Omeprazole 40 Mg Capsule.Dr) 40 mg PO BID@0630,1630 [facility] Last Admin: 07/23/23 05:59 Dose: 40 mg Ondansetron HCl (Ondansetron Hcl 4 Mg/2 Ml Vial) 4 mg IVPUSH Q8H PRN PRN Reason: Nausea and Vomiting Senna (Sennosides 8.6 Mg Tablet) 17.2 mg PO DAILY PRN PRN Reason: constipation Sitagliptin Phosphate (Sitagliptin Phosphate 100 Mg Tablet) 100 mg PO DAILY [facility] Last Admin: 07/23/23 08:07 Dose: 100 mg Sodium Chloride (0.9 % Sodium Chloride Flush 3 Ml Syringe) 3 ml IVFLUSH QSHIFT [facility] Last Admin: 07/23/23 08:08 Dose: 3 ml Spironolactone (Spironolactone 25 Mg Tablet) 25 mg PO BID [facility]; Protocol Last Admin: 07/23/23 08:06 Dose: 25 mg Warfarin Sodium (Warfarin Sodium 1 Mg Tablet) 1 mg PO Q48H [facility] Last Admin: 07/22/23 18:59 Dose: 1 mg Warfarin Sodium (Warfarin Sodium 2.5 Mg Tablet) 2.5 mg PO Q48H [facility] Home Medications Medication Instructions Recorded Confirmed Last Taken Type sitagliptin phosphate 100 mg 100 mg PO DAILY 11/16/22 07/22/23 06/13/23 History tablet (Januvia) warfarin 2.5 mg tablet 2.5 mg PO Q OTHER DAY 11/16/22 07/22/23 07/21/23 History omeprazole 40 mg capsule,delayed 40 mg PO BID 03/01/23 07/22/23 06/13/23 History release beclomethasone diprop (AQ) 42 mcg 1 spray intranasal BID 06/14/23 07/22/23 06/13/23 History (0.042 %) nasal spray (Beconase AQ) ferrous sulfate 325 mg (65 mg 325 mg PO DAILY 06/14/23 07/22/23 06/13/23 History iron) tablet,delayed release gabapentin 300 mg capsule 300 mg PO BID 06/14/23 07/22/23 06/13/23 History sennosides 8.6 mg tablet (senna) 17.2 mg PO DAILY PRN constipation 06/14/23 07/22/23 06/13/23 History albuterol sulfate 2.5 mg/3 mL 2.5 mg inhalation Q2-4H PRN 07/22/23 07/22/23 Unknown History (0.083 %) solution for nebulization Shortness Of Breath Or Wheezing codeine 10 mg-guaifenesin 100 mg/5 5 ml PO Q4H PRN Cough 07/22/23 07/22/23 07/20/23 History mL oral liquid mepolizumab 100 mg subcutaneous 100 mg subcut QMONTH 07/22/23 07/22/23 Unknown History solution (Nucala) warfarin 1 mg tablet 1 mg PO Q OTHER DAY 07/22/23 07/22/23 07/20/23 History Physical Exam Vital Signs: Vital Signs: Last Vital Signs Temp 98.0 F 07/23/23 11:15 Pulse 81 07/23/23 11:15 Resp 20 07/23/23 11:15 BP 145/67 H 07/23/23 11:15 Pulse Ox 97 07/23/23 11:15 O2 Del Method Room Air 07/23/23 11:15 O2 Flow Rate 2 07/22/23 06:19 Oxygen Flow Rate 2 07/22/23 05:50 BMI result Body Mass Index 24.9 GENERAL APPEARANCE: Mildly short of breath. On supplemental oxygen. NECK: no carotid bruit, ++ jugular venous distention. SKIN: no suspicious lesions, warm and dry. HEART: Systolic murmurs, irregular rate and rhythm. Mechanical 1st heart sound. LUNGS: Bilateral expiratory wheezes. ABDOMEN: soft, nontender. Distended. EXTREMITIES: no edema. PERIPHERAL PULSES: equal. NEUROLOGIC: No gross deficits, AAO X 3 Objective Labs and Meds 07/23/23 09:09 07/23/23 09:09 Lab results: Laboratory Results - last 24 hr 07/22/23 07/22/23 07/23/23 13:19 20:16 07:23 WBC RBC Hgb Hct MCV MCH MCHC RDW Plt Count MPV Immature Gran % (Auto) Neut % (Auto) Lymph % (Auto) [place] % (Auto) Eos % (Auto) Baso % (Auto) Lymph # (Auto) [place] # (Auto) Eos # (Auto) Baso # (Auto) Abs Immat Gran (auto) Absolute Neuts (auto) Absolute Nucleated RBC Nucleated RBC % (auto) Smear Tech's Comments PT INR Sodium Potassium Chloride Carbon Dioxide Anion Gap BUN Creatinine Estim Creat Clear Calc Estimated GFR POC Glucose 495 H* 395 H* Random Glucose Estimat Average Glucose Hemoglobin A1c % Calcium Magnesium Total Bilirubin AST ALT Alkaline Phosphatase B-Natriuretic Peptide Total Protein Albumin Blood Type O Positive Antibody Screen NEGATIVE 07/23/23 07/23/23 07/23/23 09:09 09:10 10:15 WBC 10.2 RBC 3.02 L Hgb 8.4 L Hct 25.4 L MCV 84.1 MCH 27.8 MCHC 33.1 RDW 16.5 H Plt Count 173 MPV 10.0 Immature Gran % (Auto) 0.7 H Neut % (Auto) 93.8 H Lymph % (Auto) 2.2 L [place] % (Auto) 3.1 Eos % (Auto) 0.0 Baso % (Auto) 0.2 Lymph # (Auto) 0.2 L [place] # (Auto) 0.3 Eos # (Auto) 0.0 Baso # (Auto) 0.0 Abs Immat Gran (auto) 0.07 H Absolute Neuts (auto) 9.6 H Absolute Nucleated RBC 0.000 Nucleated RBC % (auto) 0.0 Smear Tech's Comments VERIFIED PT 22.5 H INR 1.8 H Sodium 133 L Potassium 3.2 L Chloride 99 Carbon Dioxide 24 Anion Gap 13 BUN 38 H Creatinine 1.22 Estim Creat Clear Calc 41.3 Estimated GFR 44 POC Glucose 396 H* Random Glucose 442 H* Estimat Average Glucose 157 Hemoglobin A1c % 7.1 H Calcium 9.2 Magnesium 2.1 Total Bilirubin 0.9 AST 18 ALT 16 Alkaline Phosphatase 100 B-Natriuretic Peptide 1793 H Total Protein 6.4 L Albumin 3.8 Blood Type Antibody Screen 07/23/23 11:17 WBC RBC Hgb Hct MCV MCH MCHC RDW Plt Count MPV Immature Gran % (Auto) Neut % (Auto) Lymph % (Auto) [place] % (Auto) Eos % (Auto) Baso % (Auto) Lymph # (Auto) [place] # (Auto) Eos # (Auto) Baso # (Auto) Abs Immat Gran (auto) Absolute Neuts (auto) Absolute Nucleated RBC Nucleated RBC % (auto) Smear Tech's Comments PT INR Sodium Potassium Chloride Carbon Dioxide Anion Gap BUN Creatinine Estim Creat Clear Calc Estimated GFR POC Glucose 409 H* Random Glucose Estimat Average Glucose Hemoglobin A1c % Calcium Magnesium Total Bilirubin AST ALT Alkaline Phosphatase B-Natriuretic Peptide Total Protein Albumin Blood Type Antibody Screen Assessment and Plan (1) Persistent atrial fibrillation: Status: Acute (2) Acute on chronic systolic (congestive) heart failure: Status: Acute Plan [age] year female who has background history of mechanical mitral valve on Coumadin, permanent atrial fibrillation, cardiomyopathy with EF of 25-30% based on echo from November 2022 and moderate to severe aortic valve stenosis (low-flow low gradient) who is presenting with shortness of breath and congestive heart failure. Significantly volume overloaded. Agree with Lasix 40 mg IV b.i.d.. Aim for negative fluid balance of at least 1-1/2 L negative over the next 24 hours. She is on Coumadin for anticoagulation. She is on amiodarone but continues to be in atrial fibrillation and is probably being used as a rate control agent at this point. Repeat echocardiography to reassess the aortic valve and cardiomyopathy. We will follow along with you. Thank you for allowing me to participate in the care of your patient. Please feel free to contact me if you have any questions. Procedures Date of Service Date of Service: 07/23/23
--- NOTE | 2023-07-23 17:24 | PC.NURSE ---
Pt alert and oriented x4. Anxious this am c/o pain to bilat feet, medicated with tylenol and scheduled gabapentin with good effect. LS with wheezes in am occasional congested cough, denies SOB or CP, Afib on tele. PRN cough syrup given as well as scheduled tessalon pearls with good effect. BS+X4 abdomen soft non-tender denies nausea/vomiting. OOB independent steady gait. Voiding without difficulty. Blood glucose into high 300 to low 400 Melinda Bashir NP notified insulin adjusted at 1200 15 units given per order. POC at 1600 179 reported to Melinda Bashir NP 5 units standing lispro held. Will continue to monitor and report changes
[2023-07-24] VITALS (14 sets, daily range): BP systolic 130–168; BP diastolic 63–77; PULSE 62–100; RESP 17–20; TEMP 36–36.8; O2SAT 95–99
[2023-07-24 06:57] LABS: Basophils Percent Auto 0.1 % (0-2); Hematocrit 25.6 % (37.0-47.0); Hemoglobin 8.3 g/dl (12.0-16.0); Imm Gran Abs Auto 0.07 X10*3/uL (0.00-0.03); Imm Gran Pct Auto 0.7 % (0.0-0.4); Lymphocytes Absolute Auto 0.2 X10*3/uL (1.2-4.9); Lymphocytes Percent Auto 2.2 % (20-40); MANUAL DIFF FLAG SCAN; Mean Corpuscular HGB Conc 32.4 g/dl (31.0-35.0); Mean Corpuscular Hemoglobin 27.7 pg (27.0-33.0); Mean Corpuscular Volume 85.3 fL (80.0-98.0); Mean Platelet Volume 10.3 fL (9.4-12.3); Monocytes Absolute Auto 0.4 X10*3/uL (0.1-1.2); Monocytes Percent Auto 3.7 % (2-11); Neutrophils Absolute Auto 8.7 x10*3/uL (2.0-8.3); Neutrophils Percent Auto 93.3 % (45-73); Platelet Count 199 X10*3/uL (160-400); Red Cell Distribution Width 16.7 % (11.0-16.0); SCAN SMEAR FLAG 1; White Blood Count 9.4 X10*3/uL (4.8-10.8)
[2023-07-24 07:41] LABS: Anion Gap 16 (12-20); Blood Urea Nitrogen 55 mg/dL (9-16); Calcium 9.3 mg/dL (8.4-10.2); Carbon Dioxide 25 mmol/L (22-29); Chloride 97 mmol/L (96-108); Creatinine Clr Calc Pharmacy 34.5; Estimated Glomerular Filt Rate 36; Glucose Random 420 mg/dL (60-115); Potassium 3.7 mmol/L (3.3-5.1); Sodium 134 mmol/L (135-145)
[2023-07-24 07:52] LABS: SLIDE REVIEW VERIFIED
--- NOTE | 2023-07-24 09:30 | PM.PNCARD ---
Subjective Subjective Date of Service: 07/24/23 Principal diagnosis: CHF, atrial fibrillation Interval history: Patient still appears to be very short of breath. Wheezing. Blood pressures been stable. Heart rate is slightly elevated in the 110 range this morning otherwise yesterday was well controlled. Creatinine has bumped up to 1.45. Denies any palpitations or chest pain. No lightheadedness, syncope. Review of Systems Constitutional: Reports no additional constitutional complaints Cardiovascular: Denies Abdominal Distension, Denies rapid heart rate, Reports leg edema, Denies palpitations, Reports dyspnea and Reports orthopnea Respiratory: Reports dyspnea and Reports wheezing Gastrointestinal: Reports no additional gastrointestinal complaints Musculoskeletal: Reports no additional musculoskeletal complaints Psychiatric: Reports no additional psychiatric complaints Endocrine: Denies palpitations Allergic/Immunologic: Reports wheezing Physical Exam Vital Signs: Last Vital Signs Temp 97.8 F 07/24/23 07:37 Pulse 100 07/24/23 08:14 Resp 20 07/24/23 08:14 BP 143/72 H 07/24/23 07:37 Pulse Ox 98 07/24/23 07:37 O2 Del Method Room Air 07/24/23 07:37 O2 Flow Rate 2 07/22/23 06:19 Oxygen Flow Rate 2 07/22/23 05:50 BMI result Body Mass Index 24.9 Const General: cooperative and in distress moderate and respiratory Nutritional Appearance: average body habitus Orientation/consciousness: patient oriented x3 Neck Neck: Yes trachea midline, Yes supple and Yes JVD Resp Effort & Inspection: normal respiratory effort Auscultation: wheezes scattered wheezes Cardio Jugular venous distension: JVD Rate: tachycardic Rhythm: abnormal rhythm irregularly irregular Heart sounds: S1 normal heart sound present ([facility] [place] mitral valve) and Murmur heart sound present systolic late, decrescendo and crescendo GI Auscultation: normal bowel sounds Skin General skin exam: no rashes or lesions noted and ecchymosis Neuro General: patient oriented x3 and no focal motor deficits Extrem General: No clubbing, No cyanosis and Yes edema Objective Labs and Meds 07/24/23 06:03 07/24/23 06:03 Lab results: Laboratory Results - last 24 hr 07/23/23 07/23/23 07/23/23 09:09 09:10 10:15 WBC 10.2 RBC 3.02 L Hgb 8.4 L Hct 25.4 L MCV 84.1 MCH 27.8 MCHC 33.1 RDW 16.5 H Plt Count 173 MPV 10.0 Immature Gran % (Auto) 0.7 H Neut % (Auto) 93.8 H Lymph % (Auto) 2.2 L [place] % (Auto) 3.1 Eos % (Auto) 0.0 Baso % (Auto) 0.2 Lymph # (Auto) 0.2 L [place] # (Auto) 0.3 Eos # (Auto) 0.0 Baso # (Auto) 0.0 Abs Immat Gran (auto) 0.07 H Absolute Neuts (auto) 9.6 H Absolute Nucleated RBC 0.000 Nucleated RBC % (auto) 0.0 Smear Tech's Comments VERIFIED PT 22.5 H INR 1.8 H Sodium 133 L Potassium 3.2 L Chloride 99 Carbon Dioxide 24 Anion Gap 13 BUN 38 H Creatinine 1.22 Estim Creat Clear Calc 41.3 Estimated GFR 44 POC Glucose 396 H* Random Glucose 442 H* Estimat Average Glucose 157 Hemoglobin A1c % 7.1 H Calcium 9.2 Magnesium 2.1 Total Bilirubin 0.9 AST 18 ALT 16 Alkaline Phosphatase 100 B-Natriuretic Peptide 1793 H Total Protein 6.4 L Albumin 3.8 07/23/23 07/23/23 07/23/23 11:17 16:16 19:43 WBC RBC Hgb Hct MCV MCH MCHC RDW Plt Count MPV Immature Gran % (Auto) Neut % (Auto) Lymph % (Auto) [place] % (Auto) Eos % (Auto) Baso % (Auto) Lymph # (Auto) [place] # (Auto) Eos # (Auto) Baso # (Auto) Abs Immat Gran (auto) Absolute Neuts (auto) Absolute Nucleated RBC Nucleated RBC % (auto) Smear Tech's Comments PT INR Sodium Potassium Chloride Carbon Dioxide Anion Gap BUN Creatinine Estim Creat Clear Calc Estimated GFR POC Glucose 409 H* 179 H 232 H Random Glucose Estimat Average Glucose Hemoglobin A1c % Calcium Magnesium Total Bilirubin AST ALT Alkaline Phosphatase B-Natriuretic Peptide Total Protein Albumin 07/24/23 07/24/23 06:03 07:39 WBC 9.4 RBC 3.00 L Hgb 8.3 L Hct 25.6 L MCV 85.3 MCH 27.7 MCHC 32.4 RDW 16.7 H Plt Count 199 MPV 10.3 Immature Gran % (Auto) 0.7 H Neut % (Auto) 93.3 H Lymph % (Auto) 2.2 L [place] % (Auto) 3.7 Eos % (Auto) 0.0 Baso % (Auto) 0.1 Lymph # (Auto) 0.2 L [place] # (Auto) 0.4 Eos # (Auto) 0.0 Baso # (Auto) 0.0 Abs Immat Gran (auto) 0.07 H Absolute Neuts (auto) 8.7 H Absolute Nucleated RBC 0.000 Nucleated RBC % (auto) 0.0 Smear Tech's Comments VERIFIED PT INR Sodium 134 L Potassium 3.7 Chloride 97 Carbon Dioxide 25 Anion Gap 16 BUN 55 H Creatinine 1.46 H Estim Creat Clear Calc 34.5 Estimated GFR 36 POC Glucose 344 H Random Glucose 420 H* Estimat Average Glucose Hemoglobin A1c % Calcium 9.3 Magnesium Total Bilirubin AST ALT Alkaline Phosphatase B-Natriuretic Peptide Total Protein Albumin Progress Note: A&P Assessment and plan (1) CHF exacerbation: Status: Acute Assessment and Plan: Patient with CHF exacerbation but also appears to be significantly broncho spastic. Would consider more intense bronchodilator therapy and would switch her to Xopenex treat juice cardiac stimulation. Continue IV diuresis and would switch her to Lasix drip at 5 mg an hour. Continue to follow BMP and BNP tomorrow. Strict intake and output chart needs to be pursued. Given her severe systolic dysfunction rising creatinine possibly related to cardiorenal syndrome. Would suggest to start on low-dose hydralazine 10 mg b.i.d. for afterload reduction and add Isordil 5 mg p.o. b.i.d. for preload reduction. Cannot tolerate beta-blockers, as per the notes in the chart. Had angioedema to lisinopril in the past. Follow-up echocardiogram to assess the severity and progression aortic stenosis. If she has significant aortic stenosis may require consideration for transcatheter aortic valve replacement. Out of bed to chair. Agree with mucolytic therapy. Incentive spirometer should also be considered. Also transfuse her to maintain hematocrit over 30 (2) H/O mitral valve replacement with mechanical valve: Status: Acute Assessment and Plan: Prior history of mechanical mitral valve replacement with chronic atrial fibrillation. INR is trended down to 1.8. Please continue trend INR. If remains below to consider giving her Lovenox as supplementary therapy to reduce risk of clotting especially with the mechanical valve. SBE prophylaxis is (3) Persistent atrial fibrillation: Status: Acute Assessment and Plan: Chronic atrial fibrillation, currently not rate control. Switch to Xopenex. Given couple of doses of digoxin 0.25 mg IV q.6 x2. Continue amiodarone for rate control. Limited options of rate control. Continue monitor full disclosure cardiac telemetry. Will follow with you Time Spent With Patient Time: Total time managing care of this patient today ____ minutes. Progress Note: Quality Stroke Does the patient have a stroke diagnosis?: No Procedures Date of Service Date of Service: 07/24/23
--- NOTE | 2023-07-24 12:51 | HO.PM.IMPN ---
Subjective Subjective Date of Service: 07/24/23 Review of Systems Follow up CHF, asthma exacerbation breathing better still with cough now with back pain from bed and leg pain from neuropathy Physical Exam Vital Signs: Vital Signs: Last Vital Signs Temp 97.9 F 07/24/23 11:05 Pulse 94 07/24/23 11:19 Resp 18 07/24/23 11:19 BP 168/77 H 07/24/23 11:05 Pulse Ox 97 07/24/23 11:05 O2 Del Method Room Air 07/24/23 11:05 O2 Flow Rate 2 07/22/23 06:19 Oxygen Flow Rate 2 07/22/23 05:50 BMI result Body Mass Index 24.9 Appearing in no acute distress lung sounds exp wheezing heart regular rate rhythm, clear S1, S2 positive bowel sounds, abdomen is soft, nontender neuro patient is alert x3, no focal deficits Objective Data Active Medications Acetaminophen (Acetaminophen 325 Mg Tablet) 650 mg PO Q6H PRN PRN Reason: Pain, Mild (Pain Scale 1-3) Last Admin: 07/24/23 08:32 Dose: 650 mg Documented By: LATRICE Albuterol Sulfate (Albuterol Sulfate (0.083%) 2.5 Mg/3 Ml Vial.Neb) 2.5 mg INHALE RQ4H WHILE AWAKE [facility] Last Admin: 07/24/23 11:19 Dose: 2.5 mg Documented By: MONSERRAT Albuterol/Ipratropium (Albuterol/Iprat 2.5/0.5mg 3 Ml Ampul.Neb) 3 ml INHALE Q4H PRN PRN Reason: Wheezing Last Admin: 07/23/23 08:16 Dose: 3 ml Documented By: KEMI Amiodarone HCl (Amiodarone Hcl 200 Mg Tablet) 200 mg PO DAILY [facility] Last Admin: 07/24/23 08:24 Dose: 200 mg Documented By: LATRICE Dextrose (Dextrose 50 % 25 Gm/50 Ml Syringe) 25 gm IVPUSH Q15M PRN; Protocol PRN Reason: per Hypoglycemia Standing Ord. Ferrous Sulfate (Ferrous Sulfate 324 Mg Tablet.) 324 mg PO DAILY [facility] Last Admin: 07/24/23 08:24 Dose: 324 mg Documented By: LATRICE Furosemide (Furosemide 40 Mg/4 Ml Vial) 40 mg IVPUSH BID@0900,1800 [facility]; Protocol Last Admin: 07/24/23 08:24 Dose: 40 mg Documented By: LATRICE Gabapentin (Gabapentin 300 Mg Capsule) 300 mg PO BID [facility] Last Admin: 07/24/23 08:23 Dose: 300 mg Documented By: LATRICE Glucose (Glucose Gel 15 Gm Gel..Gram.) 15 gm PO Q15M PRN; Protocol PRN Reason: per Hypoglycemia Standing Ord. Guaifenesin (Guaifenesin La 600 Mg Tab.Er.12h) 600 mg PO BID [facility] Last Admin: 07/24/23 08:25 Dose: 600 mg Documented By: LATRICE Guaifenesin/Codeine Phosphate (Guaifen/Codeine Sf 200/20/10ml 10 Ml Liquid) 5 ml PO Q6H PRN PRN Reason: cough Last Admin: 07/24/23 07:34 Dose: 5 ml Documented By: ELFEGO Insulin Human Lispro (Insulin Lispro 100 Unit/Ml 3 Ml Vial) 0 unit SUBCUT QIDAS [facility]; Protocol Last Admin: 07/24/23 11:36 Dose: 10 unit Documented By: LATRICE Insulin Human Lispro (Insulin Lispro 100 Unit/Ml 3 Ml Vial) 5 unit SUBCUT QIDAS [facility] Last Admin: 07/24/23 11:37 Dose: 5 unit Documented By: LATRICE Lorazepam (Lorazepam 0.5 Mg Tablet) 0.25 mg PO Q6H PRN PRN Reason: Anxiety Last Admin: 07/23/23 23:40 Dose: 0.25 mg Documented By: ELFEGO Comments: witnessed at [facility] by Ephraim Andrea RN. Methylprednisolone Sodium Succinate (Methylprednisolone Sod Succ 40 Mg/Ml Vial) 40 mg IVPUSH Q12H [facility] Last Admin: 07/24/23 08:24 Dose: 40 mg Documented By: LATRICE Omeprazole (Omeprazole 40 Mg Capsule.) 40 mg PO BID@0630,1630 [facility] Last Admin: 07/24/23 07:34 Dose: 40 mg Documented By: ELFEGO Ondansetron HCl (Ondansetron Hcl 4 Mg/2 Ml Vial) 4 mg IVPUSH Q8H PRN PRN Reason: Nausea and Vomiting Senna (Sennosides 8.6 Mg Tablet) 17.2 mg PO DAILY PRN PRN Reason: constipation Sitagliptin Phosphate (Sitagliptin Phosphate 100 Mg Tablet) 100 mg PO DAILY [facility] Last Admin: 07/24/23 08:24 Dose: 100 mg Documented By: LATRICE Sodium Chloride (0.9 % Sodium Chloride Flush 3 Ml Syringe) 3 ml IVFLUSH QSHIFT [facility] Last Admin: 07/24/23 08:26 Dose: 3 ml Documented By: LATRICE Spironolactone (Spironolactone 25 Mg Tablet) 25 mg PO BID [facility]; Protocol Last Admin: 07/24/23 08:22 Dose: 25 mg Documented By: LATRICE Warfarin Sodium (Warfarin Sodium 1 Mg Tablet) 1 mg PO Q48H [facility] Last Admin: 07/22/23 18:59 Dose: 1 mg Documented By: BRENTON Warfarin Sodium (Warfarin Sodium 2.5 Mg Tablet) 2.5 mg PO Q48H [facility] Last Admin: 07/23/23 19:15 Dose: 2.5 mg Documented By: LATRICE Labs 07/24/23 06:03 07/24/23 06:03 Labs: Laboratory Results - last 24 hr 07/23/23 07/23/23 07/24/23 16:16 19:43 06:03 MCV 85.3 MCH 27.7 MCHC 32.4 RDW 16.7 H Plt Count 199 MPV 10.3 Immature Gran % (Auto) 0.7 H Neut % (Auto) 93.3 H Lymph % (Auto) 2.2 L [place] % (Auto) 3.7 Eos % (Auto) 0.0 Baso % (Auto) 0.1 Lymph # (Auto) 0.2 L [place] # (Auto) 0.4 Eos # (Auto) 0.0 Baso # (Auto) 0.0 Abs Immat Gran (auto) 0.07 H Absolute Neuts (auto) 8.7 H Absolute Nucleated RBC 0.000 Nucleated RBC % (auto) 0.0 Smear Tech's Comments VERIFIED PT INR Anion Gap 16 Estim Creat Clear Calc 34.5 Estimated GFR 36 POC Glucose 179 H 232 H Random Glucose 420 H* Calcium 9.3 07/24/23 07/24/23 07/24/23 07:39 09:35 11:08 MCV MCH MCHC RDW Plt Count MPV Immature Gran % (Auto) Neut % (Auto) Lymph % (Auto) [place] % (Auto) Eos % (Auto) Baso % (Auto) Lymph # (Auto) [place] # (Auto) Eos # (Auto) Baso # (Auto) Abs Immat Gran (auto) Absolute Neuts (auto) Absolute Nucleated RBC Nucleated RBC % (auto) Smear Tech's Comments PT 28.0 H D INR 2.3 H Anion Gap Estim Creat Clear Calc Estimated GFR POC Glucose 344 H 413 H* Random Glucose Calcium Microbiology Microbiology Results: Microbiology 07/22/23 08:17 Blood Culture - Preliminary Blood - Venous No growth after 48 hours. 07/22/23 08:17 Blood Culture - Preliminary Blood - Venous No growth after 48 hours. Assessment and Plan (1) Anemia: Status: Acute (2) Dyspnea: Status: Acute Plan 63-year-old woman admitted with acute congestive heart failure exacerbation and asthma exacerbation Heart failure with reduced ejection fraction echocardiogram 25-30%, severe aortic stenosis with valve area of 0.7 cm, mechanical mitral valve in place, severe TR Cardiology following> rec Start Lasix drip 5 mg an hour, start hydralazine 10 mg twice daily for afterload reduction, add Isordil 5 mg twice daily for preload reduction Monitor on [employer] daily weight Strict intake and output Persistent atrial fibrillation give digoxin 0.25 mg IV q.6 x2, continue amiodarone Warfarin Check PT INR daily Subtherapeutic INR. Resolved mechanical mitral valve INR goal 2.5-3.5 INR 2.3 today follow INR closely, if falls below therapeutic consider Lovenox as supplemental therapy to reduce risk of clotting especially with mechanical Asthma exacerbation no pna on cxr Solu-Medrol 40mg Q12h Schedule Xopenex mucinex for dry cough supplemental oxygen as needed Normocytic anemia No acute bleeding As per Cardiology, transfuse for hematocrit greater than 30 1 unit of PRBCs ordered Check iron studies Back pain msk warm compress as needed tylenol prn Diabetes mellitus type 2 with hyperglycemia likely from steroids Sliding scale, ada diet peripheral neuropathy, unspecified continue neurontin DVT prophylaxis with warfarin Attending Dr. Pope Full code continued hospital stay for treatment of acute congestive heart failure requiring IV diuretics and specialty consultation Quality Stroke Does the patient have a stroke diagnosis?: No VTE Prior VTE?: No VTE Risk Level:: Medical - moderate - high VTE Device Contraindication: Treatment Not Indicated VTE Drug Contraindication: N/A - Med Ordered
[2023-07-24] MEDS: Furosemide 200 MG in 0.9 % Sodium Chloride 80 ML IVCONT (14:50)
--- NOTE | 2023-07-24 14:59 | P.CDIM_ITS ---
PROVIDER RESPONSE TEXT: To clarify, the appropriate diagnosis supported by the clinical indicators: Mild intermittent: acute QUERY TEXT: PHYSICIAN'S DOCUMENTATION REQUEST Date of Query: 07/24/2023 02:02 PM EST Patient Name: Ruby Anthony Admit Date: 07/22/2023 Dear Nakia Bashir, A review of the medical record indicates additional documentation may be needed. Please review below and update the documentation accordingly. The diagnosis of asthma was documented in the record on 07/24/23. Additional clinical indicators from the record include: Per Hospitalist Progress Note; Asthma exacerbation no pna on cxr Solu-Medrol 40mg Q12h Schedule Xopenex Mucinex for dry cough supplemental oxygen as needed Based on the above, please clarify in the Progress Notes further specificity regarding the type and a cuity of the asthma: Mild intermittent Please specify if with or without acute exacerbation or status asthmaticus Mild persistent Please specify if with or without acute exacerbation or status asthmaticus Moderate persistent Please specify if with or without acute exacerbation or status asthmaticus Severe persistent Please specify if with or without acute exacerbation or status asthmaticus Exercise induced Please specify if with or without acute exacerbation or status asthmaticus Chronic obstructive asthma and indicate if with acute lower respiratory infection Please specify if with or without acute exacerbation or status asthmaticus Asthma with underlying COPD and indicate if with acute lower respiratory infection Please specify if with or without acute exacerbation or status asthmaticus Other (explain) Clinically unable to determine (explain) Thank you, Ale Ramos RN Use of terms such as suspected, likely, concern for, or probable (associated with a specific diagnosi s that is being evaluated, monitored, or treated as if it exists) are acceptable and can be coded in the inpatient se tting, when documented at the time of discharge. Please use your independent medical judgment in providing your response. THIS QUERY IS PART OF THE PERMANENT MEDICAL RECORD
[2023-07-24] MEDS: Insulin Lispro 100 UNIT/ML 3 ML VIAL SUBCUT ×4 (16:15→20:53)
[2023-07-24 16:49] LABS: Glucose, Whole Blood 310 mg/dL (60-115)
[2023-07-24] MEDS: Omeprazole 40 MG CAPSULE.DR PO (18:47)
[2023-07-24] MEDS: Warfarin Sodium 1 MG TABLET PO (18:47)
[2023-07-24] MEDS: levalbuterol HCL 1.25 MG/3 ML VIAL.NEB INHALE (19:40)
[2023-07-24 20:42] LABS: Glucose, Whole Blood 408 mg/dL (60-115)
[2023-07-24] MEDS: Digoxin 0.5 MG/2 ML AMPUL 0.25 MG IVPUSH (20:54)
[2023-07-24] MEDS: guaiFENesin LA 600 MG TAB.ER.12H PO (20:54)
[2023-07-24] MEDS: Gabapentin 300 MG CAPSULE PO (20:54)
[2023-07-24] MEDS: hydrALAZINE HCl 10 MG TABLET PO (20:54)
[2023-07-24] MEDS: methylPREDNISolone Sod Succ 40 MG/ML VIAL IVPUSH (20:54)
[2023-07-24] MEDS: Spironolactone 25 MG TABLET PO (20:54)
[2023-07-24] MEDS: guaiFEN/Codeine SF 200/20/10ML 10 ML LIQUID 5 ML PO (21:25)
[2023-07-24] MEDS: LORazepam 0.5 MG TABLET 0.25 MG PO (22:36)
[2023-07-25] VITALS (9 sets, daily range): BP systolic 139–173; BP diastolic 64–81; PULSE 80–94; RESP 18–20; TEMP 36.2–36.9; O2SAT 92–100; BMI 24.5; BMI 26.2
[2023-07-25] MEDS: Omeprazole 40 MG CAPSULE.DR PO ×2 (04:35→16:45)
[2023-07-25] MEDS: guaiFEN/Codeine SF 200/20/10ML 10 ML LIQUID 5 ML PO ×2 (04:35→16:45)
[2023-07-25 07:01] LABS: Glucose, Whole Blood 368 mg/dL (60-115)
[2023-07-25 07:38] LABS: Hematocrit 29.2 % (37.0-47.0); Hemoglobin 9.4 g/dl (12.0-16.0); Imm Gran Abs Auto 0.08 X10*3/uL (0.00-0.03); Lymphocytes Absolute Auto 0.2 X10*3/uL (1.2-4.9); Lymphocytes Percent Auto 2.6 % (20-40); MANUAL DIFF FLAG SCAN; Mean Corpuscular HGB Conc 32.2 g/dl (31.0-35.0); Mean Corpuscular Hemoglobin 27.7 pg (27.0-33.0); Mean Corpuscular Volume 86.1 fL (80.0-98.0); Mean Platelet Volume 9.5 fL (9.4-12.3); Monocytes Absolute Auto 0.4 X10*3/uL (0.1-1.2); Monocytes Percent Auto 5.7 % (2-11); Neutrophils Percent Auto 90.7 % (45-73); Platelet Count 201 X10*3/uL (160-400); Red Blood Count 3.39 X10*6/uL (4.20-5.50); Red Cell Distribution Width 16.4 % (11.0-16.0); SCAN SMEAR FLAG 1; White Blood Count 7.7 X10*3/uL (4.8-10.8)
[2023-07-25] MEDS: Insulin Lispro 100 UNIT/ML 3 ML VIAL SUBCUT ×8 (07:39→21:54)
[2023-07-25] MEDS: methylPREDNISolone Sod Succ 40 MG/ML VIAL IVPUSH (07:39)
[2023-07-25] MEDS: Isosorbide Dinitrate 5 MG TABLET PO (07:40)
[2023-07-25] MEDS: hydrALAZINE HCl 10 MG TABLET PO (07:40)
[2023-07-25] MEDS: Spironolactone 25 MG TABLET PO ×2 (07:40→20:38)
[2023-07-25] MEDS: Amiodarone HCL 200 MG TABLET PO (07:40)
[2023-07-25] MEDS: Ferrous Sulfate 324 MG TABLET.DR PO (07:40)
[2023-07-25] MEDS: Gabapentin 300 MG CAPSULE PO ×2 (07:40→20:38)
[2023-07-25] MEDS: guaiFENesin LA 600 MG TAB.ER.12H PO ×2 (07:41→20:38)
[2023-07-25] MEDS: SITagliptin Phosphate 100 MG TABLET PO (07:41)
[2023-07-25 07:45] LABS: INTERNATIONAL NORM RATIO 3.5 (0.9-1.1); Prothrombin Time 43.1 SEC (11.1-13.3)
[2023-07-25 07:56] LABS: B Type Natriuretic Peptide 796 pg/mL (<100)
[2023-07-25 08:08] LABS: Anion Gap 15 (12-20); Blood Urea Nitrogen 63 mg/dL (9-16); Calcium 8.9 mg/dL (8.4-10.2); Carbon Dioxide 26 mmol/L (22-29); Chloride 99 mmol/L (96-108); Creatinine Clr Calc Pharmacy 33.1; Estimated Glomerular Filt Rate 33; Glucose Random 410 mg/dL (60-115); Iron 21 mcg/dL (30-160); Percent Iron Saturation 7 % (15-50); Potassium 4.4 mmol/L (3.3-5.1); SLIDE REVIEW VERIFIED; Sodium 136 mmol/L (135-145); Total Iron Binding Capacity 308 mcg/dL (228-428); Unsaturated Iron Binding 287 ug/dL
[2023-07-25] MEDS: levalbuterol HCL 1.25 MG/3 ML VIAL.NEB INHALE ×3 (08:27→20:11)
--- NOTE | 2023-07-25 09:57 | P.PNCA_ITS ---
Subjective Subjective Date of Service: 07/25/23 Principal diagnosis: CHF, atrial fibrillation Interval history: Patient says her breathing is mildly better although she continues to have symptoms of wheezing and feels echo cough is stock. She has been getting bronchodilators. Heart rate is better controlled. Blood pressure remains elevated. Has a negative balance of about 1200 cc with creatinine is still rising with BNP improving at this point in time. Denies any chest pain. Echocardiogram done yesterday shows severe aortic stenosis with severe LV systolic dysfunction. Review of Systems Constitutional: Reports no additional constitutional complaints Cardiovascular: Reports leg edema, Denies lightheadedness, Denies Loss of Consciousness and Reports dyspnea on exertion Respiratory: Reports dyspnea on exertion and Reports wheezing Gastrointestinal: Reports no additional gastrointestinal complaints Genitourinary: Reports no additional female genitourinary complaints Reports system reviewed and no additional complaints, except as documented Allergic/Immunologic: Reports wheezing Physical Exam Vital Signs: Last Vital Signs Temp 98.0 F 07/25/23 07:18 Pulse 86 07/25/23 08:28 Resp 20 07/25/23 08:28 BP 161/68 H 07/25/23 07:18 Pulse Ox 92 07/25/23 07:18 O2 Del Method Room Air 07/25/23 07:18 O2 Flow Rate 2 07/22/23 06:19 Oxygen Flow Rate 2 07/22/23 05:50 BMI result Body Mass Index 26.2 Const General: cooperative and in distress moderate and respiratory Nutritional Appearance: average body habitus Orientation/consciousness: patient oriented x3 Neck Neck: Yes trachea midline, Yes supple and Yes JVD Resp Effort & Inspection: normal respiratory effort Auscultation: wheezes scattered wheezes Cardio Jugular venous distension: JVD Rate: tachycardic Rhythm: abnormal rhythm irregularly irregular Heart sounds: S1 normal heart sound present ([facility] mitral valve) and Murmur heart sound present systolic late, decrescendo and crescendo GI Auscultation: normal bowel sounds Skin General skin exam: no rashes or lesions noted and ecchymosis Neuro General: patient oriented x3 and no focal motor deficits Extrem General: No clubbing, No cyanosis and Yes edema Objective Labs and Meds 07/25/23 07:19 07/25/23 07:19 Lab results: Laboratory Results - last 24 hr 07/22/23 07/24/2324 13:19 09:35 11:08 WBC RBC Hgb Hct MCV MCH MCHC RDW Plt Count MPV Immature Gran % (Auto) Neut % (Auto) Lymph % (Auto) [place] % (Auto) Eos % (Auto) Baso % (Auto) Lymph # (Auto) [place] # (Auto) Eos # (Auto) Baso # (Auto) Abs Immat Gran (auto) Absolute Neuts (auto) Absolute Nucleated RBC Nucleated RBC % (auto) Smear Tech's Comments PT 28.0 H D INR 2.3 H Sodium Potassium Chloride Carbon Dioxide Anion Gap BUN Creatinine Estim Creat Clear Calc Estimated GFR POC Glucose 413 H* Random Glucose Calcium Iron TIBC % Saturation Unsat Iron Binding B-Natriuretic Peptide Blood Type O Positive Antibody Screen NEGATIVE Crossmatch See Detail 07/24/23 07/24/23 07/25/23 16:10 20:38 06:58 WBC RBC Hgb Hct MCV MCH MCHC RDW Plt Count MPV Immature Gran % (Auto) Neut % (Auto) Lymph % (Auto) [place] % (Auto) Eos % (Auto) Baso % (Auto) Lymph # (Auto) [place] # (Auto) Eos # (Auto) Baso # (Auto) Abs Immat Gran (auto) Absolute Neuts (auto) Absolute Nucleated RBC Nucleated RBC % (auto) Smear Tech's Comments PT INR Sodium Potassium Chloride Carbon Dioxide Anion Gap BUN Creatinine Estim Creat Clear Calc Estimated GFR POC Glucose 310 H 408 H* 368 H* Random Glucose Calcium Iron TIBC % Saturation Unsat Iron Binding B-Natriuretic Peptide Blood Type Antibody Screen Crossmatch 07/25/23 07:19 WBC 7.7 RBC 3.39 L Hgb 9.4 L Hct 29.2 L MCV 86.1 MCH 27.7 MCHC 32.2 RDW 16.4 H Plt Count 201 MPV 9.5 Immature Gran % (Auto) 1.0 H Neut % (Auto) 90.7 H Lymph % (Auto) 2.6 L [place] % (Auto) 5.7 Eos % (Auto) 0.0 Baso % (Auto) 0.0 Lymph # (Auto) 0.2 L [place] # (Auto) 0.4 Eos # (Auto) 0.0 Baso # (Auto) 0.0 Abs Immat Gran (auto) 0.08 H Absolute Neuts (auto) 7.0 Absolute Nucleated RBC 0.000 Nucleated RBC % (auto) 0.0 Smear Tech's Comments VERIFIED PT 43.1 H D INR 3.5 H Sodium 136 Potassium 4.4 Chloride 99 Carbon Dioxide 26 Anion Gap 15 BUN 63 H Creatinine 1.56 H Estim Creat Clear Calc 33.1 Estimated GFR 33 POC Glucose Random Glucose 410 H* Calcium 8.9 Iron 21 L TIBC 308 % Saturation 7 L Unsat Iron Binding 287 B-Natriuretic Peptide 796 H Blood Type Antibody Screen Crossmatch Imaging Radiologist's impression: Impressions Chest X-Ray 07/24/23 09:23 IMPRESSION: Stable cardiomegaly. Mild diffuse increased interstitial markings which were present previously, may be chronic. New small left pleural effusion. Progress Note: A&P Assessment and plan (1) CHF exacerbation: Status: Acute Assessment and Plan: Patient with very complicated history with severely reduced LV ejection fraction with now severe aortic stenosis mechanical mitral valve with persistent chronic atrial fibrillation with pulmonary hypertension and elevated creatinine. Clinically still short of breath and is still wheezing. Wheezing is out of proportion to her cardiac etiology. Consider pulmonary consultation. Her blood pressure is elevated. Continue maximize vasodilators therapy. Increase hydralazine to 25 mg b.i.d. and Isordil to 10 mg b.i.d.. Continue Lasix drip for 1 more day. Has not tolerated beta-zechariah in the past. Rate control with amiodarone at this point in time. Eventually will require evaluation for transcatheter aortic valve replacement once she has improved clinically. Will follow closely. If there is not significant improvement and/or worsening of condition may consider it patient transfer for evaluation for valve replacement. (2) Persistent atrial fibrillation: Status: Acute Assessment and Plan: Persistent atrial fibrillation with better rate control. Continue amiodarone for rate control for now. Has not tolerated beta-blockers the past. Cannot use get calcium channel zechariah given LV systolic dysfunction. Continue full oral anticoagulation, currently on warfarin therapy. Maintain target INR between 2.5 and 3.5. Will continue to follow with her Time Spent With Patient Time: Total time managing care of this patient today ____ minutes. Progress Note: Quality Stroke Does the patient have a stroke diagnosis?: No Procedures Date of Service Date of Service: 07/25/23
--- NOTE | 2023-07-25 10:09 | P.PNIM_ITS ---
Subjective Subjective Date of Service: 07/25/23 Review of Systems Follow up CHF, asthma exacerbation breathing better still with cough and wheezing Physical Exam 2 Vital Signs: Vital Signs: Last Vital Signs Temp 98.0 F 07/25/23 07:18 Pulse 86 07/25/23 08:28 Resp 20 07/25/23 08:28 BP 161/68 H 07/25/23 07:18 Pulse Ox 92 07/25/23 07:18 O2 Del Method Room Air 07/25/23 07:18 O2 Flow Rate 2 07/22/23 06:19 Oxygen Flow Rate 2 07/22/23 05:50 BMI result Body Mass Index 26.2 Appearing in no acute distress lung sounds exp wheezing heart regular rate rhythm, clear S1, S2 positive bowel sounds, abdomen is soft, nontender neuro patient is alert x3, no focal deficits Objective Data Active Medications Acetaminophen (Acetaminophen 325 Mg Tablet) 650 mg PO Q6H PRN PRN Reason: Pain, Mild (Pain Scale 1-3) Last Admin: 07/24/23 14:53 Dose: 650 mg Documented By: LATRICE Albuterol/Ipratropium (Albuterol/Iprat 2.5/0.5mg 3 Ml Ampul.Neb) 3 ml INHALE Q4H PRN PRN Reason: Wheezing Last Admin: 07/23/23 08:16 Dose: 3 ml Documented By: KEMI Amiodarone HCl (Amiodarone Hcl 200 Mg Tablet) 200 mg PO DAILY [facility] Last Admin: 07/25/23 07:40 Dose: 200 mg Documented By: EROS Dextrose (Dextrose 50 % 25 Gm/50 Ml Syringe) 25 gm IVPUSH Q15M PRN; Protocol PRN Reason: per Hypoglycemia Standing Ord. Ferrous Sulfate (Ferrous Sulfate 324 Mg Tablet.) 324 mg PO DAILY [facility] Last Admin: 07/25/23 07:40 Dose: 324 mg Documented By: EROS Gabapentin (Gabapentin 300 Mg Capsule) 300 mg PO BID [facility] Last Admin: 07/25/23 07:40 Dose: 300 mg Documented By: EROS Glucose (Glucose Gel 15 Gm Gel..Gram.) 15 gm PO Q15M PRN; Protocol PRN Reason: per Hypoglycemia Standing Ord. Guaifenesin (Guaifenesin La 600 Mg Tab.Er.12h) 600 mg PO BID [facility] Last Admin: 07/25/23 07:41 Dose: 600 mg Documented By: EROS Guaifenesin/Codeine Phosphate (Guaifen/Codeine Sf 200/20/10ml 10 Ml Liquid) 5 ml PO Q6H PRN PRN Reason: cough Last Admin: 07/25/23 04:35 Dose: 5 ml Documented By: ZBIGNIEW Hydralazine HCl (Hydralazine Hcl 25 Mg Tablet) 25 mg PO BID [facility]; Protocol Furosemide 200 mg/ Sodium (Chloride) 100 mls @ 2.5 mls/hr IVCONT .Q24H [facility] Last Admin: 07/24/23 14:50 Dose: 5 mg/hr, 2.5 mls/hr Documented By: LATRICE Insulin Human Lispro (Insulin Lispro 100 Unit/Ml 3 Ml Vial) 0 unit SUBCUT QIDAS [facility]; Protocol Last Admin: 07/25/23 07:39 Dose: 10 unit Documented By: EROS Insulin Human Lispro (Insulin Lispro 100 Unit/Ml 3 Ml Vial) 5 unit SUBCUT QIDAS [facility] Last Admin: 07/25/23 07:40 Dose: 5 unit Documented By: EROS Isosorbide Dinitrate (Isosorbide Dinitrate 5 Mg Tablet) 5 mg PO 0800,1300 [facility]; Protocol Last Admin: 07/25/23 07:40 Dose: 5 mg Documented By: EROS Levalbuterol HCl (Levalbuterol Hcl 1.25 Mg/3 Ml Vial.Neb) 1.25 mg INHALE RTID [facility] Last Admin: 07/25/23 08:27 Dose: 1.25 mg Documented By: MONSERRAT Lorazepam (Lorazepam 0.5 Mg Tablet) 0.25 mg PO Q6H PRN PRN Reason: Anxiety Last Admin: 07/24/23 22:36 Dose: 0.25 mg Documented By: ZBIGNIEW Methylprednisolone Sodium Succinate (Methylprednisolone Sod Succ 40 Mg/Ml Vial) 40 mg IVPUSH Q12H [facility] Last Admin: 07/25/23 07:39 Dose: 40 mg Documented By: EROS Omeprazole (Omeprazole 40 Mg Capsule.) 40 mg PO BID@0630,1630 [facility] Last Admin: 07/25/23 04:35 Dose: 40 mg Documented By: ZBIGNIEW Ondansetron HCl (Ondansetron Hcl 4 Mg/2 Ml Vial) 4 mg IVPUSH Q8H PRN PRN Reason: Nausea and Vomiting Senna (Sennosides 8.6 Mg Tablet) 17.2 mg PO DAILY PRN PRN Reason: constipation Sitagliptin Phosphate (Sitagliptin Phosphate 100 Mg Tablet) 100 mg PO DAILY [facility] Last Admin: 07/25/23 07:41 Dose: 100 mg Documented By: EROS Sodium Chloride (0.9 % Sodium Chloride Flush 3 Ml Syringe) 3 ml IVFLUSH QSHIFT [facility] Last Admin: 07/25/23 07:43 Dose: 3 ml Documented By: EROS Spironolactone (Spironolactone 25 Mg Tablet) 25 mg PO BID [facility]; Protocol Last Admin: 07/25/23 07:40 Dose: 25 mg Documented By: EROS Warfarin Sodium (Warfarin Sodium 1 Mg Tablet) 1 mg PO Q48H [facility] Last Admin: 07/24/23 18:47 Dose: 1 mg Documented By: LATRICE Warfarin Sodium (Warfarin Sodium 2.5 Mg Tablet) 2.5 mg PO Q48H [facility] Last Admin: 07/23/23 19:15 Dose: 2.5 mg Documented By: LATRICE Labs 07/25/23 07:19 07/25/23 07:19 Labs: Laboratory Results - last 24 hr 07/22/23 07/24/23 07/24/23 13:19 09:35 11:08 MCV MCH MCHC RDW Plt Count MPV Immature Gran % (Auto) Neut % (Auto) Lymph % (Auto) [place] % (Auto) Eos % (Auto) Baso % (Auto) Lymph # (Auto) [place] # (Auto) Eos # (Auto) Baso # (Auto) Abs Immat Gran (auto) Absolute Neuts (auto) Absolute Nucleated RBC Nucleated RBC % (auto) Smear Tech's Comments PT 28.0 H D INR 2.3 H Anion Gap Estim Creat Clear Calc Estimated GFR POC Glucose 413 H* Random Glucose Calcium Iron TIBC % Saturation Unsat Iron Binding B-Natriuretic Peptide Blood Type O Positive Antibody Screen NEGATIVE Crossmatch See Detail 07/24/23 07/24/23 07/25/23 16:10 20:38 06:58 MCV MCH MCHC RDW Plt Count MPV Immature Gran % (Auto) Neut % (Auto) Lymph % (Auto) [place] % (Auto) Eos % (Auto) Baso % (Auto) Lymph # (Auto) [place] # (Auto) Eos # (Auto) Baso # (Auto) Abs Immat Gran (auto) Absolute Neuts (auto) Absolute Nucleated RBC Nucleated RBC % (auto) Smear Tech's Comments PT INR Anion Gap Estim Creat Clear Calc Estimated GFR POC Glucose 310 H 408 H* 368 H* Random Glucose Calcium Iron TIBC % Saturation Unsat Iron Binding B-Natriuretic Peptide Blood Type Antibody Screen Crossmatch 07/25/23 07:19 MCV 86.1 MCH 27.7 MCHC 32.2 RDW 16.4 H Plt Count 201 MPV 9.5 Immature Gran % (Auto) 1.0 H Neut % (Auto) 90.7 H Lymph % (Auto) 2.6 L [place] % (Auto) 5.7 Eos % (Auto) 0.0 Baso % (Auto) 0.0 Lymph # (Auto) 0.2 L [place] # (Auto) 0.4 Eos # (Auto) 0.0 Baso # (Auto) 0.0 Abs Immat Gran (auto) 0.08 H Absolute Neuts (auto) 7.0 Absolute Nucleated RBC 0.000 Nucleated RBC % (auto) 0.0 Smear Tech's Comments VERIFIED PT 43.1 H D INR 3.5 H Anion Gap 15 Estim Creat Clear Calc 33.1 Estimated GFR 33 POC Glucose Random Glucose 410 H* Calcium 8.9 Iron 21 L TIBC 308 % Saturation 7 L Unsat Iron Binding 287 B-Natriuretic Peptide 796 H Blood Type Antibody Screen Crossmatch Microbiology Microbiology Results: Microbiology 07/22/23 08:17 Blood Culture - Preliminary Blood - Venous No growth after 48 hours. 07/22/23 08:17 Blood Culture - Preliminary Blood - Venous No growth after 48 hours. Assessment and Plan (1) Anemia: Status: Acute (2) Dyspnea: Status: Acute Plan 63-year-old woman admitted with acute congestive heart failure exacerbation and asthma exacerbation Asthma exacerbation still very wheezy no pna on cxr continue Solu-Medrol 40mg Q12h continue Schedule Xopenex mucinex for dry cough supplemental oxygen as needed check chest CT and RPP pulmonary consult for persistant wheezing Heart failure with reduced ejection fraction echocardiogram 25-30%, severe aortic stenosis with valve area of 0.7 cm, mechanical mitral valve in place, severe TR Cardiology following> rec Lasix drip 5 mg an hour, increase hydralazine to 25 mg twice daily for afterload reduction, increse Isordil to 10 mg twice daily for preload reduction Monitor on tax investigator daily weight Strict intake and output neg 2.2L Persistent atrial fibrillation s/p digoxin 0.25 mg IV q.6 x2 continue amiodarone Warfarin Check PT INR daily Subtherapeutic INR. Resolved mechanical mitral valve INR goal 2.5-3.5 INR 3.5 today follow INR closely, if falls below therapeutic consider Lovenox as supplemental therapy to reduce risk of clotting especially with mechanical Iron def anemia No acute bleeding As per Cardiology, transfuse for hematocrit greater than 30 s/p 1 unit of PRBCs ordered low iron, start supplement Back pain msk warm compress as needed tylenol prn Diabetes mellitus type 2 with hyperglycemia likely from steroids Sliding scale, ada diet peripheral neuropathy, unspecified continue neurontin DVT prophylaxis with warfarin Attending Dr. Pope Full code continued hospital stay for treatment of acute congestive heart failure requiring IV diuretics and specialty consultation Quality Stroke Does the patient have a stroke diagnosis?: No VTE Prior VTE?: No VTE Risk Level:: Medical - moderate - high VTE Device Contraindication: Treatment Not Indicated VTE Drug Contraindication: N/A - Med Ordered
[2023-07-25 10:53] LABS: Glucose, Whole Blood 385 mg/dL (60-115)
[2023-07-25 11:38] LABS: Adenovirus PCR Not Detected (Not Detect.); Bordetella parapertussis PCR Not Detected (Not Detect.); Bordetella pertussis PCR Not Detected (Not Detect.); Chlamydia pneumoniae PCR Not Detected (Not Detect.); Coronavirus 229E PCR Not Detected (Not Detect.); Coronavirus HKU1 PCR Not Detected (Not Detect.); Coronavirus NL63 PCR Not Detected (Not Detect.); Coronavirus OC43 PCR Not Detected (Not Detect.); Human metapneumovirus PCR Not Detected (Not Detect.); Influenza A PCR Not Detected (Not Detect.); Influenza B PCR Not Detected (Not Detect.); Mycoplasma pneumoniae PCR Not Detected (Not Detect.); Parainfluenza 1 PCR Not Detected (Not Detect.); Parainfluenza 2 PCR Not Detected (Not Detect.); Parainfluenza 3 PCR Not Detected (Not Detect.); Parainfluenza 4 PCR Not Detected (Not Detect.); RSV PCR Not Detected (Not Detect.); Rhino/Enterovirus PCR Detected (Not Detect.)
[2023-07-25 11:52] LABS: SARS-CoV-2 PCR Not Detected (Not Detect.)
--- NOTE | 2023-07-25 13:08 | PM.CNPUL ---
History of Present Illness History of Present Illness Consult date: 07/25/23 Chief complaint: CHF, Asthma exacerbation Narrative: This is an inpatient pulmonary consultation. The patient is a 63-year-old woman with a known history of valvular disease congestive heart failure and asthma, presenting to the ER with complaints of worsening shortness of breath and cough since yesterday evening. She reports that she was watching TV and suddenly developed shortness of breath. Denied chest pain, palpitations, nausea, vomiting, diarrhea. Reports that she had nasal congestion and a productive cough over the last week. She did report some chills. Chest x-ray showed cardiomegaly with mild diffuse increased interstitial markings, BNP 371, troponin 23, stool occult positive, no fever leukocytosis noted. Patient was given a dose of Rocephin, IV Lasix, Solu-Medrol, albuterol in the ER. She will be admitted for further management and treatment of acute congestive heart failure and asthma exacerbation. The patient has been in the hospital now for 3 days and there was no significant improvement. She has continue the aggressive diuresis. On examination she does have significant wheezing. Her respiratory viral panel did come back positive for enterovirus infection likely exacerbating her asthma. In addition to that, I did review her imaging studies including the x-ray on arrival demonstrating increased cardiac size with evidence of Neo B lines and interstitial edema. Subsequent patient had a CT scan of the chest today which I personally reviewed. Chest small very small area of ground-glass attenuation in the right upper lobe area. In addition to that has a significant cardiac size with again evidence of pulmonary hypertension secondary to her cardiac issues. Review of Systems Constitutional: Constitutional: Reports no additional constitutional complaints Cardiovascular: Cardiovascular: Reports leg edema, Denies lightheadedness, Denies Loss of Consciousness and Reports dyspnea on exertion Respiratory: Respiratory: Reports dyspnea on exertion and Reports wheezing Gastrointestinal: Gastrointestinal: Reports no additional gastrointestinal complaints Genitourinary: Genitourinary: Reports no additional female genitourinary complaints Neurologic: Reports system reviewed and no additional complaints, except as documented Allergic/Immunologic: Allergic/Immunologic: Reports wheezing [facility] Past Medical History Medical History (Updated 07/25/23 @ 13:13 by Ivan Bashir MD) Secondary pulmonary arterial hypertension Ovarian cancer Tricuspid valve insufficiency, non-rheumatic Non-rheumatic aortic stenosis Persistent atrial fibrillation Family History Family History Mother Heart disease Father Heart disease Diabetes Surgical History Surgical History H/O mitral valve replacement with mechanical valve Social History Social History Household Members: Family Housing: House Do you presently have visiting nurse or other home services: Yes Alcohol intake: never Patient Tobacco Use Status: Former Tobacco user Quit Date: 1990 Years Smoked: 4 +/- service: No Meds Allergies Allergy/AdvReac Type Severity Reaction Status Date / Time lisinopril [LISINOPRIL] Allergy Severe ANGIOEDEMA Verified 06/14/23 09:53 morphine [MORPHINE] Allergy Severe ANAPHYLAXIS Verified 06/14/23 09:53 penicillin V Allergy Intermediate Itching Verified 06/14/23 09:53 cefaclor [From CECLOR] Allergy Unknown HIVES Verified 06/14/23 09:53 ciprofloxacin Allergy Unknown itchy Verified 06/14/23 09:53 codeine Allergy Unknown HIVES Verified 06/14/23 09:53 methylprednisolone Allergy Unknown Unknown Verified 06/14/23 09:53 nitrofurantoin Allergy Unknown Unknown Verified 06/14/23 09:53 olmesartan [Benicar] Allergy Unknown Unknown Verified 06/14/23 09:53 Penicillins Allergy Unknown HIVES Verified 06/14/23 09:53 Sulfa (Sulfonamide Allergy Unknown HIVES Verified 06/14/23 09:53 Antibiotics) hydromorphone [From Dilaudid] AdvReac Shakiness Verified 06/14/23 09:53 odansetron Allergy Severe Hives Uncoded 06/14/23 09:53 Metoprolol Succinate Allergy Intermediate Hives Uncoded 06/14/23 09:53 celcor Allergy Unknown itchy Uncoded 06/14/23 09:53 Gentamicin in Saline Allergy Unknown hives Uncoded 06/14/23 09:53 Gentamicin Sulfate Allergy Unknown hives Uncoded 06/14/23 09:53 Latex Allergy Unknown Itching Uncoded 06/14/23 09:53 latex Allergy Unknown Itching Uncoded 06/14/23 09:53 sulfonamides Allergy Unknown Unknown Uncoded 06/14/23 09:53 vioxx Allergy Unknown Itching Uncoded 06/14/23 09:53 Bicitra AdvReac Unknown unknown Uncoded 06/14/23 09:53 Active Medications: Current Medications Acetaminophen (Acetaminophen 325 Mg Tablet) 650 mg PO Q6H PRN PRN Reason: Pain, Mild (Pain Scale 1-3) Last Admin: 07/24/23 14:53 Dose: 650 mg Albuterol/Ipratropium (Albuterol/Iprat 2.5/0.5mg 3 Ml Ampul.Neb) 3 ml INHALE Q4H PRN PRN Reason: Wheezing Last Admin: 07/23/23 08:16 Dose: 3 ml Amiodarone HCl (Amiodarone Hcl 200 Mg Tablet) 200 mg PO DAILY [facility] Last Admin: 07/25/23 07:40 Dose: 200 mg Dextrose (Dextrose 50 % 25 Gm/50 Ml Syringe) 25 gm IVPUSH Q15M PRN; Protocol PRN Reason: per Hypoglycemia Standing Ord. Ferrous Sulfate (Ferrous Sulfate 324 Mg Tablet.Dr) 324 mg PO DAILY [facility] Last Admin: 07/25/23 07:40 Dose: 324 mg Gabapentin (Gabapentin 300 Mg Capsule) 300 mg PO BID [facility] Last Admin: 07/25/23 07:40 Dose: 300 mg Glucose (Glucose Gel 15 Gm Gel..Gram.) 15 gm PO Q15M PRN; Protocol PRN Reason: per Hypoglycemia Standing Ord. Guaifenesin (Guaifenesin La 600 Mg Tab.Er.12h) 600 mg PO BID [facility] Last Admin: 07/25/23 07:41 Dose: 600 mg Guaifenesin/Codeine Phosphate (Guaifen/Codeine Sf 200/20/10ml 10 Ml Liquid) 5 ml PO Q6H PRN PRN Reason: cough Last Admin: 07/25/23 04:35 Dose: 5 ml Hydralazine HCl (Hydralazine Hcl 25 Mg Tablet) 25 mg PO BID [facility]; Protocol Furosemide 200 mg/ Sodium (Chloride) 100 mls @ 2.5 mls/hr IVCONT .Q24H [facility] Last Infusion: 07/25/23 11:31 Dose: 5 mg/hr, 2.5 mls/hr Insulin Human Lispro (Insulin Lispro 100 Unit/Ml 3 Ml Vial) 0 unit SUBCUT QIDACHS [facility]; Protocol Last Admin: 07/25/23 11:57 Dose: 10 unit Insulin Human Lispro (Insulin Lispro 100 Unit/Ml 3 Ml Vial) 5 unit SUBCUT QIDACHS [facility] Last Admin: 07/25/23 11:57 Dose: 5 unit Isosorbide Dinitrate (Isosorbide Dinitrate 10 Mg Tablet) 10 mg PO 0800,1300 [facility]; Protocol Levalbuterol HCl (Levalbuterol Hcl 1.25 Mg/3 Ml Vial.Neb) 1.25 mg INHALE RTID [facility] Last Admin: 07/25/23 08:27 Dose: 1.25 mg Lorazepam (Lorazepam 0.5 Mg Tablet) 0.25 mg PO Q6H PRN PRN Reason: Anxiety Last Admin: 07/24/23 22:36 Dose: 0.25 mg Methylprednisolone Sodium Succinate (Methylprednisolone Sod Succ 40 Mg/Ml Vial) 60 mg IVPUSH Q8H [facility] Omeprazole (Omeprazole 40 Mg Capsule.Dr) 40 mg PO BID@0630,1630 [facility] Last Admin: 07/25/23 04:35 Dose: 40 mg Ondansetron HCl (Ondansetron Hcl 4 Mg/2 Ml Vial) 4 mg IVPUSH Q8H PRN PRN Reason: Nausea and Vomiting Senna (Sennosides 8.6 Mg Tablet) 17.2 mg PO DAILY PRN PRN Reason: constipation Sitagliptin Phosphate (Sitagliptin Phosphate 100 Mg Tablet) 100 mg PO DAILY [facility] Last Admin: 07/25/23 07:41 Dose: 100 mg Sodium Chloride (0.9 % Sodium Chloride Flush 3 Ml Syringe) 3 ml IVFLUSH QSHIFT [facility] Last Admin: 07/25/23 07:43 Dose: 3 ml Spironolactone (Spironolactone 25 Mg Tablet) 25 mg PO BID [facility]; Protocol Last Admin: 07/25/23 07:40 Dose: 25 mg Warfarin Sodium (Warfarin Sodium 1 Mg Tablet) 1 mg PO Q48H [facility] Last Admin: 07/24/23 18:47 Dose: 1 mg Warfarin Sodium (Warfarin Sodium 2.5 Mg Tablet) 2.5 mg PO Q48H [facility] Last Admin: 07/23/23 19:15 Dose: 2.5 mg Home Medications Medication Instructions Recorded Confirmed Last Taken Type sitagliptin phosphate 100 mg 100 mg PO DAILY 11/16/22 07/22/23 06/13/23 History tablet (Januvia) warfarin 2.5 mg tablet 2.5 mg PO Q OTHER DAY 11/16/22 07/22/23 07/21/23 History omeprazole 40 mg capsule,delayed 40 mg PO BID 03/01/23 07/22/23 06/13/23 History release beclomethasone diprop (AQ) 42 mcg 1 spray intranasal BID 06/14/23 07/22/23 06/13/23 History (0.042 %) nasal spray (Beconase AQ) ferrous sulfate 325 mg (65 mg 325 mg PO DAILY 06/14/23 07/22/23 06/13/23 History iron) tablet,delayed release gabapentin 300 mg capsule 300 mg PO BID 06/14/23 07/22/23 06/13/23 History sennosides 8.6 mg tablet (senna) 17.2 mg PO DAILY PRN constipation 06/14/23 07/22/23 06/13/23 History albuterol sulfate 2.5 mg/3 mL 2.5 mg inhalation Q2-4H PRN 07/22/23 07/22/23 Unknown History (0.083 %) solution for nebulization Shortness Of Breath Or Wheezing codeine 10 mg-guaifenesin 100 mg/5 5 ml PO Q4H PRN Cough 07/22/23 07/22/23 07/20/23 History mL oral liquid mepolizumab 100 mg subcutaneous 100 mg subcut QMONTH 07/22/23 07/22/23 Unknown History solution (Nucala) warfarin 1 mg tablet 1 mg PO Q OTHER DAY 07/22/23 07/22/23 07/20/23 History Physical Exam Vital Signs: Vital Signs: Last Vital Signs Temp 98.4 F 07/25/23 10:59 Pulse 84 07/25/23 10:59 Resp 20 07/25/23 10:59 BP 170/70 H 07/25/23 10:59 Pulse Ox 96 07/25/23 10:59 O2 Del Method Room Air 07/25/23 10:59 O2 Flow Rate 2 07/22/23 06:19 Oxygen Flow Rate 2 07/22/23 05:50 BMI result Body Mass Index 26.2 Const: General: cooperative and in distress moderate and respiratory Nutritional Appearance: average body habitus Orientation/consciousness: patient oriented x3 Neck: Neck: Yes trachea midline, Yes supple and Yes JVD Resp: Effort & Inspection: normal respiratory effort and prolonged expiratory phase Auscultation: wheezes scattered wheezes and diminished lung sounds Cardio: Rate: tachycardic Heart sounds: S1 normal heart sound present, S2 normal heart sound present and Murmur heart sound present systolic GI: Auscultation: normal bowel sounds Skin: General skin exam: no rashes or lesions noted and ecchymosis Neuro: General: patient oriented x3 and no focal motor deficits Extrem: General: No clubbing, No cyanosis and Yes edema Results Laboratory Findings 07/25/23 07:19 07/25/23 07:19 ABG, PT/INR, D-dimer: PT/INR, D-dimer PT 43.1 SEC (11.1-13.3) H D 07/25/23 07:19 INR 3.5 (0.9-1.1) H 07/25/23 07:19 Abnormal lab findings: Abnormal Labs 07/22/23 07/22/23 07/22/23 05:47 09:10 10:39 RBC 2.95 L Hgb 8.2 L Hct 25.3 L RDW 16.6 H Plt Count 147 L D MPV 9.2 L Immature Gran % (Auto) 1.3 H Neut % (Auto) 77.1 H Lymph % (Auto) 11.7 L Lymph # (Auto) 0.7 L Abs Immat Gran (auto) 0.08 H Absolute Neuts (auto) PT 24.0 H D INR 2.0 H D APTT 36.8 H Sodium Potassium BUN 30 H Creatinine POC Glucose Random Glucose 170 H Hemoglobin A1c % Iron % Saturation Troponin I High Sens 21.4 H 23.0 H B-Natriuretic Peptide 371 H Total Protein Ur Leukocyte Esterase Trace H Entero/Rhino (PCR) Crossmatch 07/22/23 07/22/23 07/23/23 13:19 20:16 07:23 RBC Hgb Hct RDW Plt Count MPV Immature Gran % (Auto) Neut % (Auto) Lymph % (Auto) Lymph # (Auto) Abs Immat Gran (auto) Absolute Neuts (auto) PT INR APTT Sodium Potassium BUN Creatinine POC Glucose 495 H* 395 H* Random Glucose Hemoglobin A1c % Iron % Saturation Troponin I High Sens B-Natriuretic Peptide Total Protein Ur Leukocyte Esterase Entero/Rhino (PCR) Crossmatch See Detail 07/23/23 07/23/2307/23/24 09:09 09:10 10:15 RBC 3.02 L Hgb 8.4 L Hct 25.4 L RDW 16.5 H Plt Count MPV Immature Gran % (Auto) 0.7 H Neut % (Auto) 93.8 H Lymph % (Auto) 2.2 L Lymph # (Auto) 0.2 L Abs Immat Gran (auto) 0.07 H Absolute Neuts (auto) 9.6 H PT 22.5 H INR 1.8 H APTT Sodium 133 L Potassium 3.2 L BUN 38 H Creatinine POC Glucose 396 H* Random Glucose 442 H* Hemoglobin A1c % 7.1 H Iron % Saturation Troponin I High Sens B-Natriuretic Peptide 1793 H Total Protein 6.4 L Ur Leukocyte Esterase Entero/Rhino (PCR) Crossmatch 07/23/23 07/23/23 07/23/23 11:17 16:16 19:43 RBC Hgb Hct RDW Plt Count MPV Immature Gran % (Auto) Neut % (Auto) Lymph % (Auto) Lymph # (Auto) Abs Immat Gran (auto) Absolute Neuts (auto) PT INR APTT Sodium Potassium BUN Creatinine POC Glucose 409 H* 179 H 232 H Random Glucose Hemoglobin A1c % Iron % Saturation Troponin I High Sens B-Natriuretic Peptide Total Protein Ur Leukocyte Esterase Entero/Rhino (PCR) Crossmatch 07/24/23 07/24/23 07/24/23 06:03 07:39 09:35 RBC 3.00 L Hgb 8.3 L Hct 25.6 L RDW 16.7 H Plt Count MPV Immature Gran % (Auto) 0.7 H Neut % (Auto) 93.3 H Lymph % (Auto) 2.2 L Lymph # (Auto) 0.2 L Abs Immat Gran (auto) 0.07 H Absolute Neuts (auto) 8.7 H PT 28.0 H D INR 2.3 H APTT Sodium 134 L Potassium BUN 55 H Creatinine 1.46 H POC Glucose 344 H Random Glucose 420 H* Hemoglobin A1c % Iron % Saturation Troponin I High Sens B-Natriuretic Peptide Total Protein Ur Leukocyte Esterase Entero/Rhino (PCR) Crossmatch 07/24/23 07/24/23 07/24/23 11:08 16:10 20:38 RBC Hgb Hct RDW Plt Count MPV Immature Gran % (Auto) Neut % (Auto) Lymph % (Auto) Lymph # (Auto) Abs Immat Gran (auto) Absolute Neuts (auto) PT INR APTT Sodium Potassium BUN Creatinine POC Glucose 413 H* 310 H 408 H* Random Glucose Hemoglobin A1c % Iron % Saturation Troponin I High Sens B-Natriuretic Peptide Total Protein Ur Leukocyte Esterase Entero/Rhino (PCR) Crossmatch 07/25/23 07/25/23 07/25/23 06:58 07:19 10:32 RBC 3.39 L Hgb 9.4 L Hct 29.2 L RDW 16.4 H Plt Count MPV Immature Gran % (Auto) 1.0 H Neut % (Auto) 90.7 H Lymph % (Auto) 2.6 L Lymph # (Auto) 0.2 L Abs Immat Gran (auto) 0.08 H Absolute Neuts (auto) PT 43.1 H D INR 3.5 H APTT Sodium Potassium BUN 63 H Creatinine 1.56 H POC Glucose 368 H* Random Glucose 410 H* Hemoglobin A1c % Iron 21 L % Saturation 7 L Troponin I High Sens B-Natriuretic Peptide 796 H Total Protein Ur Leukocyte Esterase Entero/Rhino (PCR) Detected A Crossmatch 07/25/23 10:50 RBC Hgb Hct RDW Plt Count MPV Immature Gran % (Auto) Neut % (Auto) Lymph % (Auto) Lymph # (Auto) Abs Immat Gran (auto) Absolute Neuts (auto) PT INR APTT Sodium Potassium BUN Creatinine POC Glucose 385 H* Random Glucose Hemoglobin A1c % Iron % Saturation Troponin I High Sens B-Natriuretic Peptide Total Protein Ur Leukocyte Esterase Entero/Rhino (PCR) Crossmatch Microbiology: Microbiology 07/22/23 08:17 Blood - Venous Blood Culture - Preliminary No growth after 48 hours. 07/22/23 08:17 Blood - Venous Blood Culture - Preliminary No growth after 48 hours. Assessment and Plan (1) Asthma exacerbation: Qualifiers: Asthma severity: mild Asthma persistence: intermittent Qualified Code(s): J45.21 - Mild intermittent asthma with (acute) exacerbation Status: Acute (2) Chronic systolic heart failure: Status: Acute (3) Cardiomyopathy: Qualifiers: Cardiomyopathy type: unspecified Qualified Code(s): I42.9 - Cardiomyopathy, unspecified Status: Acute (4) Secondary pulmonary arterial hypertension: Status: Acute Plan The patient is slow to recover due to a viral syndrome exacerbating her underlying airway disease superimposed on significant heart and valvular disease Increase Solu-Medrol Continue respiratory therapy as tolerated Continue diuresis as tolerated Oxygen supplementation to maintain a pulse ox above 90% Procedures Date of Service Date of Service: 07/25/23
[2023-07-25] MEDS: Isosorbide Dinitrate 10 MG TABLET PO (13:48)
[2023-07-25] MEDS: Furosemide 200 MG in 0.9 % Sodium Chloride 80 ML IVCONT (13:58)
[2023-07-25 16:36] LABS: Glucose, Whole Blood 190 mg/dL (60-115)
[2023-07-25] MEDS: methylPREDNISolone Sod Succ 40 MG/ML VIAL 60 MG IVPUSH (16:47)
[2023-07-25] MEDS: Warfarin Sodium 2.5 MG TABLET PO (17:42)
[2023-07-25] MEDS: Sennosides 8.6 MG TABLET 17.2 MG PO (20:38)
[2023-07-25] MEDS: hydrALAZINE HCl 25 MG TABLET PO (20:39)
[2023-07-25 20:55] LABS: Glucose, Whole Blood 448 mg/dL (60-115)
[2023-07-25] MEDS: Insulin Glargine,Hum.rec.anlog 100 UNIT/ML 10 ML VIAL 15 UNIT SUBCUT (21:55)
[2023-07-26] VITALS (8 sets, daily range): BP systolic 148–160; BP diastolic 64–80; PULSE 83–93; RESP 18–19; TEMP 36.4–37.2; O2SAT 94–97; BMI 23.9
[2023-07-26] MEDS: methylPREDNISolone Sod Succ 40 MG/ML VIAL 60 MG IVPUSH ×3 (00:21→16:58)
[2023-07-26] MEDS: guaiFEN/Codeine SF 200/20/10ML 10 ML LIQUID 5 ML PO (00:26)
[2023-07-26] MEDS: Omeprazole 40 MG CAPSULE.DR PO ×2 (05:32→16:59)
[2023-07-26 07:08] LABS: Glucose, Whole Blood 467 mg/dL (60-115)
[2023-07-26 07:31] LABS: Hematocrit 30.2 % (37.0-47.0); Hemoglobin 9.7 g/dl (12.0-16.0); Mean Corpuscular HGB Conc 32.1 g/dl (31.0-35.0); Mean Corpuscular Hemoglobin 27.6 pg (27.0-33.0); Platelet Count 206 X10*3/uL (160-400); Red Blood Count 3.51 X10*6/uL (4.20-5.50); Red Cell Distribution Width 16.4 % (11.0-16.0); White Blood Count 5.4 X10*3/uL (4.8-10.8)
[2023-07-26 07:34] LABS: Prothrombin Time 49.1 SEC (11.1-13.3)
[2023-07-26 07:52] LABS: Glucose Random 517 mg/dL (60-115)
[2023-07-26 07:53] LABS: Anion Gap 18 (12-20); B Type Natriuretic Peptide 860 pg/mL (<100); Blood Urea Nitrogen 60 mg/dL (9-16); Calcium 8.9 mg/dL (8.4-10.2); Carbon Dioxide 30 mmol/L (22-29); Chloride 95 mmol/L (96-108); Creatinine Clr Calc Pharmacy 32.2; Estimated Glomerular Filt Rate 37; Potassium 3.9 mmol/L (3.3-5.1); Sodium 139 mmol/L (135-145)
[2023-07-26] MEDS: levalbuterol HCL 1.25 MG/3 ML VIAL.NEB INHALE ×3 (08:00→19:24)
[2023-07-26] MEDS: Insulin Lispro 100 UNIT/ML 3 ML VIAL SUBCUT ×5 (08:17→22:19)
--- NOTE | 2023-07-26 08:17 | MHC.IC ---
DROPLET precautions for Rhino/enterovirus. If having copious secretions/incontinence, may add contact precautions as well.
[2023-07-26] MEDS: Insulin Glargine,Hum.rec.anlog 100 UNIT/ML 10 ML VIAL 15 UNIT SUBCUT (08:18)
[2023-07-26] MEDS: guaiFENesin LA 600 MG TAB.ER.12H PO ×2 (08:18→22:18)
[2023-07-26] MEDS: Gabapentin 300 MG CAPSULE PO ×2 (08:18→22:18)
[2023-07-26] MEDS: hydrALAZINE HCl 25 MG TABLET PO ×2 (08:18→22:18)
[2023-07-26] MEDS: Ferrous Sulfate 324 MG TABLET.DR PO (08:18)
[2023-07-26] MEDS: Isosorbide Dinitrate 10 MG TABLET PO ×2 (08:18→12:31)
[2023-07-26] MEDS: Spironolactone 25 MG TABLET PO ×2 (08:18→22:18)
[2023-07-26] MEDS: SITagliptin Phosphate 100 MG TABLET PO (08:18)
[2023-07-26] MEDS: Amiodarone HCL 200 MG TABLET PO (08:18)
--- NOTE | 2023-07-26 08:38 | P.PNPL_ITS ---
Subjective Subjective Date of Service: 07/26/23 Principal diagnosis: CHF, atrial fibrillation Interval history: The patient was seen on exam. She feels a little better. Still has a hard time with the cough. I did provide her a aerobic a flutter valve. She did use it and she expectorated very thick tenacious purulent secretions. She is off antibiotics at this time. Therefore will start back on doxycycline. Also request a sputum culture. The patient continues on her cardioprotective medications. Objective Data Labs 07/26/23 06:59 07/26/23 06:59 Labs: Laboratory Results - last 24 hr 07/25/23 07/25/23 07/25/23 10:32 10:50 16:33 WBC RBC Hgb Hct MCV MCH MCHC RDW Plt Count MPV Absolute Nucleated RBC Nucleated RBC % (auto) PT INR Sodium Potassium Chloride Carbon Dioxide Anion Gap BUN Creatinine Estim Creat Clear Calc Estimated GFR POC Glucose 385 H* 190 H Random Glucose Calcium B-Natriuretic Peptide Respiratory Panel [place] See Note Adenovirus (Rapid PCR) Not Detected B.pert (TEM-PCR) Not Detected B.parapertussis DNA PCR Not Detected C. pneumoniae DNA (PCR) Not Detected Coronavirus OC43 (PCR) Not Detected Coronavirus HKU1 (PCR) Not Detected Coronavirus 229E (PCR) Not Detected Coronavirus NL63 (PCR) Not Detected Human Metapneumovir PCR Not Detected Influenza A (RT-PCR) Not Detected Influenza B (RT-PCR) Not Detected M. pneumoniae (PCR) Not Detected Parainfluenza 1 (PCR) Not Detected Parainfluenza 2 (PCR) Not Detected Parainfluenza 3 (PCR) Not Detected Parainfluenza 4 (PCR) Not Detected RSV (PCR) Not Detected Entero/Rhino (PCR) Detected A SARS-CoV-2 RNA (RT-PCR) Not Detected 07/25/23 07/26/23 07/26/23 20:51 06:59 07:05 WBC 5.4 RBC 3.51 L Hgb 9.7 L Hct 30.2 L MCV 86.0 MCH 27.6 MCHC 32.1 RDW 16.4 H Plt Count 206 MPV 10.0 Absolute Nucleated RBC 0.000 Nucleated RBC % (auto) 0.0 PT 49.1 H INR 4.0 H Sodium 139 Potassium 3.9 Chloride 95 L Carbon Dioxide 30 H Anion Gap 18 BUN 60 H Creatinine 1.44 H Estim Creat Clear Calc 32.2 Estimated GFR 37 POC Glucose 448 H* 467 H* Random Glucose 517 H* Calcium 8.9 B-Natriuretic Peptide 860 H Respiratory Panel [place] Adenovirus (Rapid PCR) B.pert (TEM-PCR) B.parapertussis DNA PCR C. pneumoniae DNA (PCR) Coronavirus OC43 (PCR) Coronavirus HKU1 (PCR) Coronavirus 229E (PCR) Coronavirus NL63 (PCR) Human Metapneumovir PCR Influenza A (RT-PCR) Influenza B (RT-PCR) M. pneumoniae (PCR) Parainfluenza 1 (PCR) Parainfluenza 2 (PCR) Parainfluenza 3 (PCR) Parainfluenza 4 (PCR) RSV (PCR) Entero/Rhino (PCR) SARS-CoV-2 RNA (RT-PCR) Microbiology Microbiology Results: Microbiology 07/22/23 08:17 Blood - Venous Blood Culture - Preliminary No growth after 48 hours. 07/22/23 08:17 Blood - Venous Blood Culture - Preliminary No growth after 48 hours. Review of Systems Constitutional: Reports no additional constitutional complaints Cardiovascular: Reports leg edema, Denies lightheadedness, Denies Loss of Consciousness and Reports dyspnea on exertion Respiratory: Reports change in phlegm color, Reports chest congestion, Reports cough, Denies hemoptysis, Reports dyspnea on exertion and Reports wheezing Gastrointestinal: Reports no additional gastrointestinal complaints Genitourinary: Reports no additional female genitourinary complaints Reports system reviewed and no additional complaints, except as documented Allergic/Immunologic: Reports wheezing Physical Exam 2 Vital Signs: Vital Signs: Last Vital Signs Temp 98.3 F 07/26/23 07:20 Pulse 86 07/26/23 08:03 Resp 18 07/26/23 08:03 BP 150/80 H 07/26/23 07:20 Pulse Ox 96 07/26/23 07:20 O2 Del Method Room Air 07/26/23 07:20 O2 Flow Rate 2 07/22/23 06:19 Oxygen Flow Rate 2 07/22/23 05:50 BMI result Body Mass Index 23.9 Const: General: cooperative and in distress moderate and respiratory N utritional Appearance: average body habitus Orientation/consciousness: p atient oriented x3 Neck: Neck: Yes trachea midline, Yes supple and Yes JVD Chest: Chest palpation & inspection: normal inspection of the chest Resp: Effort & Inspection: normal respiratory effort, Actively coughing Quality: productive and prolonged expiratory phase Auscultation: wheezes scattered wheezes and diminished lung sounds Cardio: Rate: tachycardic Heart sounds: S1 normal heart sound present, S2 normal heart sound present and Murmur heart sound present systolic GI: Auscultation: normal bowel sounds Skin: General skin exam: no rashes or lesions noted and ecchymosis Neuro: General: patient oriented x3 and no focal motor deficits Extrem: General: No clubbing, No cyanosis and Yes edema Procedures Date of Service Date of Service: 07/26/23 Assessment and Plan Assessment and plan (1) Asthma exacerbation: Status: Acute (2) Viral syndrome: Status: Acute (3) Bronchitis: Status: Acute (4) Cardiomyopathy: Status: Acute (5) Secondary pulmonary arterial hypertension: Status: Acute Plan continue solumedrol start Doxycycline start Aerobika flutter valve for CPT sputum cx continue nebulizer therapy diuresis as tolerated Time Spent With Patient Time: Total time managing care of this patient today ____ minutes. Progress Note: Quality Stroke Does the patient have a stroke diagnosis?: No
--- NOTE | 2023-07-26 08:44 | MHC.CM.PN ---
Per REFRIGERATION ENGINEERING TEACHER/Nakia, Patient is still on IV Lasix and is not yet medically cleared for dc. PT is recommending home with services and cM will continue to follow.
--- NOTE | 2023-07-26 10:10 | P.PNCA_ITS ---
Subjective Subjective Date of Service: 07/26/23 Principal diagnosis: CHF, atrial fibrillation Interval history: Patient feeling better with much improved shortness of breath. Negative balance of 1900 cc. Atrial fibrillation rate is better controlled. Has been given new bronchodilators with lot of mucus production feels better because of that. Renal function has improved. BNP still elevated. Review of Systems Constitutional: Reports no additional constitutional complaints Cardiovascular: Denies chest pain, Denies leg edema, Denies lightheadedness and Reports dyspnea Respiratory: Reports dyspnea and Reports wheezing Allergic/Immunologic: Reports wheezing Physical Exam Vital Signs: Last Vital Signs Temp 98.3 F 07/26/23 07:20 Pulse 86 07/26/23 08:03 Resp 18 07/26/23 08:03 BP 150/80 H 07/26/23 07:20 Pulse Ox 96 07/26/23 07:20 O2 Del Method Room Air 07/26/23 07:20 O2 Flow Rate 2 07/22/23 06:19 Oxygen Flow Rate 2 07/22/23 05:50 BMI result Body Mass Index 23.9 Const General: cooperative Nutritional Appearance: average body habitus Orientation/consciousness: patient oriented x3 Neck Neck: Yes trachea midline, Yes supple and Yes JVD Resp Effort & Inspection: normal respiratory effort Auscultation: wheezes scattered wheezes Cardio Jugular venous distension: JVD Rate: tachycardic Rhythm: abnormal rhythm irregularly irregular Heart sounds: S1 normal heart sound present ([place] [facility] mitral valve) and Murmur heart sound present systolic late, decrescendo and crescendo GI Auscultation: normal bowel sounds Skin General skin exam: no rashes or lesions noted and ecchymosis Neuro General: patient oriented x3 and no focal motor deficits Extrem General: No clubbing, No cyanosis and Yes edema Objective Labs and Meds 07/26/23 06:59 07/26/23 06:59 Lab results: Laboratory Results - last 24 hr 07/25/23 07/25/23 07/25/23 10:32 10:50 16:33 WBC RBC Hgb Hct MCV MCH MCHC RDW Plt Count MPV Absolute Nucleated RBC Nucleated RBC % (auto) PT INR Sodium Potassium Chloride Carbon Dioxide Anion Gap BUN Creatinine Estim Creat Clear Calc Estimated GFR POC Glucose 385 H* 190 H Random Glucose Calcium B-Natriuretic Peptide Respiratory Panel [place] See Note Adenovirus (Rapid PCR) Not Detected B.pert (TEM-PCR) Not Detected B.parapertussis DNA PCR Not Detected C. pneumoniae DNA (PCR) Not Detected Coronavirus OC43 (PCR) Not Detected Coronavirus HKU1 (PCR) Not Detected Coronavirus 229E (PCR) Not Detected Coronavirus NL63 (PCR) Not Detected Human Metapneumovir PCR Not Detected Influenza A (RT-PCR) Not Detected Influenza B (RT-PCR) Not Detected M. pneumoniae (PCR) Not Detected Parainfluenza 1 (PCR) Not Detected Parainfluenza 2 (PCR) Not Detected Parainfluenza 3 (PCR) Not Detected Parainfluenza 4 (PCR) Not Detected RSV (PCR) Not Detected Entero/Rhino (PCR) Detected A SARS-CoV-2 RNA (RT-PCR) Not Detected 07/25/23 07/26/23 07/26/23 20:51 06:59 07:05 WBC 5.4 RBC 3.51 L Hgb 9.7 L Hct 30.2 L MCV 86.0 MCH 27.6 MCHC 32.1 RDW 16.4 H Plt Count 206 MPV 10.0 Absolute Nucleated RBC 0.000 Nucleated RBC % (auto) 0.0 PT 49.1 H INR 4.0 H Sodium 139 Potassium 3.9 Chloride 95 L Carbon Dioxide 30 H Anion Gap 18 BUN 60 H Creatinine 1.44 H Estim Creat Clear Calc 32.2 Estimated GFR 37 POC Glucose 448 H* 467 H* Random Glucose 517 H* Calcium 8.9 B-Natriuretic Peptide 860 H Respiratory Panel [place] Adenovirus (Rapid PCR) B.pert (TEM-PCR) B.parapertussis DNA PCR C. pneumoniae DNA (PCR) Coronavirus OC43 (PCR) Coronavirus HKU1 (PCR) Coronavirus 229E (PCR) Coronavirus NL63 (PCR) Human Metapneumovir PCR Influenza A (RT-PCR) Influenza B (RT-PCR) M. pneumoniae (PCR) Parainfluenza 1 (PCR) Parainfluenza 2 (PCR) Parainfluenza 3 (PCR) Parainfluenza 4 (PCR) RSV (PCR) Entero/Rhino (PCR) SARS-CoV-2 RNA (RT-PCR) Imaging Radiologist's impression: Impressions Chest CT 07/25/23 11:29 IMPRESSION: 1. Cardiomegaly with evidence of elevated right-sided heart pressure. The presence of Neo B-lines may be indicative of elevated left ventricular end-diastolic pressure is well. 2. Incidental findings such as Groundglass opacities at the right apex and compression fractures at T7 and T11 as well as other findings described above. Fleischner guidelines were followed. Progress Note: A&P Assessment and plan (1) CHF exacerbation: Status: Acute Assessment and Plan: Decompensated congestive heart failure which is improving gradually. Creatinine is improving. Continue IV diuresis with Lasix. Continue vasodilators therapy. Continue beta-zechariah therapy. Continue monitor renal function and BNP. Replace electrolytes as needed. Appreciate pulmonary consultation. Continue bronchodilator therapy and mucolytic therapy. Will require evaluation for transcatheter aortic valve replacement as outpatient. (2) Persistent atrial fibrillation: Status: Acute Assessment and Plan: Persistent atrial fibrillation better rate control at this point time. Continue current rate control strategy. Currently on full oral anticoagulation warfarin. Continue the same. INR between 2.5 and 3.5. (3) H/O mitral valve replacement with mechanical valve: Status: Acute Assessment and Plan: Mechanical mitral valve will place which is working well. Continue warfarin therapy as above. Target INR between 2.5 and 3.5. Will follow with you Time Spent With Patient Time: Total time managing care of this patient today ____ minutes. Progress Note: Quality Stroke Does the patient have a stroke diagnosis?: No Procedures Date of Service Date of Service: 07/26/23
[2023-07-26 10:54] LABS: Glucose, Whole Blood 365 mg/dL (60-115)
--- NOTE | 2023-07-26 11:42 | HO.PM.IMPN ---
Subjective Subjective Date of Service: 07/26/23 Review of Systems Follow up CHF, asthma exacerbation breathing better still with cough and wheezing Physical Exam Vital Signs: Vital Signs: Last Vital Signs Temp 98.9 F 07/26/23 10:56 Pulse 93 07/26/23 10:56 Resp 18 07/26/23 10:56 BP 160/64 H 07/26/23 10:56 Pulse Ox 96 07/26/23 10:56 O2 Del Method Room Air 07/26/23 10:56 O2 Flow Rate 2 07/22/23 06:19 Oxygen Flow Rate 2 07/22/23 05:50 BMI result Body Mass Index 23.9 Appearing in no acute distress lung sounds exp wheezing heart regular rate rhythm, clear S1, S2 positive bowel sounds, abdomen is soft, nontender neuro patient is alert x3, no focal deficits Objective Data Active Medications Acetaminophen (Acetaminophen 325 Mg Tablet) 650 mg PO Q6H PRN PRN Reason: Pain, Mild (Pain Scale 1-3) Last Admin: 07/24/23 14:53 Dose: 650 mg Documented By: LATRICE Albuterol/Ipratropium (Albuterol/Iprat 2.5/0.5mg 3 Ml Ampul.Neb) 3 ml INHALE Q4H PRN PRN Reason: Wheezing Last Admin: 07/23/23 08:16 Dose: 3 ml Documented By: KEMI Amiodarone HCl (Amiodarone Hcl 200 Mg Tablet) 200 mg PO DAILY [facility] Last Admin: 07/26/23 08:18 Dose: 200 mg Documented By: EROS Dextrose (Dextrose 50 % 25 Gm/50 Ml Syringe) 25 gm IVPUSH Q15M PRN; Protocol PRN Reason: per Hypoglycemia Standing Ord. Ferrous Sulfate (Ferrous Sulfate 324 Mg Tablet.) 324 mg PO DAILY [facility] Last Admin: 07/26/23 08:18 Dose: 324 mg Documented By: EROS Gabapentin (Gabapentin 300 Mg Capsule) 300 mg PO BID [facility] Last Admin: 07/26/23 08:18 Dose: 300 mg Documented By: EROS Glucose (Glucose Gel 15 Gm Gel..Gram.) 15 gm PO Q15M PRN; Protocol PRN Reason: per Hypoglycemia Standing Ord. Guaifenesin (Guaifenesin La 600 Mg Tab.Er.12h) 600 mg PO BID [facility] Last Admin: 07/26/23 08:18 Dose: 600 mg Documented By: EROS Guaifenesin/Codeine Phosphate (Guaifen/Codeine Sf 200/20/10ml 10 Ml Liquid) 5 ml PO Q6H PRN PRN Reason: cough Last Admin: 07/26/23 00:26 Dose: 5 ml Documented By: MARIUSZ Hydralazine HCl (Hydralazine Hcl 25 Mg Tablet) 25 mg PO BID [facility]; Protocol Last Admin: 07/26/23 08:18 Dose: 25 mg Documented By: EROS Furosemide 200 mg/ Sodium (Chloride) 100 mls @ 2.5 mls/hr IVCONT .Q24H [facility] Last Admin: 07/25/23 13:58 Dose: 5 mg/hr, 2.5 mls/hr Documented By: EROS Insulin Glargine (Insulin Glargine,Hum.Rec.Anlog 100 Unit/Ml 10 Ml Vial) 15 unit SUBCUT BID [facility] Last Admin: 07/26/23 08:18 Dose: 15 unit Documented By: EROS Insulin Human Lispro (Insulin Lispro 100 Unit/Ml 3 Ml Vial) 0 unit SUBCUT QIDACHS [facility]; Protocol Last Admin: 07/26/23 08:17 Dose: 10 unit Documented By: EROS Insulin Human Lispro (Insulin Lispro 100 Unit/Ml 3 Ml Vial) 5 unit SUBCUT QIDACHS [facility] Last Admin: 07/26/23 08:17 Dose: 5 unit Documented By: EROS Isosorbide Dinitrate (Isosorbide Dinitrate 10 Mg Tablet) 10 mg PO 0800,1300 [facility]; Protocol Last Admin: 07/26/23 08:18 Dose: 10 mg Documented By: EROS Levalbuterol HCl (Levalbuterol Hcl 1.25 Mg/3 Ml Vial.Neb) 1.25 mg INHALE RTID [facility] Last Admin: 07/26/23 08:00 Dose: 1.25 mg Documented By: CARROL Lorazepam (Lorazepam 0.5 Mg Tablet) 0.25 mg PO Q6H PRN PRN Reason: Anxiety Last Admin: 07/24/23 22:36 Dose: 0.25 mg Documented By: ZBIGNIEW Methylprednisolone Sodium Succinate (Methylprednisolone Sod Succ 40 Mg/Ml Vial) 60 mg IVPUSH Q8H [facility] Last Admin: 07/26/23 08:16 Dose: 60 mg Documented By: EROS Omeprazole (Omeprazole 40 Mg Capsule.Dr) 40 mg PO BID@0630,1630 [facility] Last Admin: 07/26/23 05:32 Dose: 40 mg Documented By: MARIUSZ Ondansetron HCl (Ondansetron Hcl 4 Mg/2 Ml Vial) 4 mg IVPUSH Q8H PRN PRN Reason: Nausea and Vomiting Senna (Sennosides 8.6 Mg Tablet) 17.2 mg PO DAILY PRN PRN Reason: constipation Last Admin: 07/25/23 20:38 Dose: 17.2 mg Documented By: MARIUSZ Sitagliptin Phosphate (Sitagliptin Phosphate 100 Mg Tablet) 100 mg PO DAILY [facility] Last Admin: 07/26/23 08:18 Dose: 100 mg Documented By: EROS Sodium Chloride (0.9 % Sodium Chloride Flush 3 Ml Syringe) 3 ml IVFLUSH QSHIFT [facility] Last Admin: 07/26/23 08:17 Dose: 3 ml Documented By: EROS Spironolactone (Spironolactone 25 Mg Tablet) 25 mg PO BID [facility]; Protocol Last Admin: 07/26/23 08:18 Dose: 25 mg Documented By: EROS Warfarin Sodium (Warfarin Sodium 1 Mg Tablet) 1 mg PO Q48H [facility] Last Admin: 07/24/23 18:47 Dose: 1 mg Documented By: LATRICE Warfarin Sodium (Warfarin Sodium 2.5 Mg Tablet) 2.5 mg PO Q48H [facility] Last Admin: 07/25/23 17:42 Dose: 2.5 mg Documented By: EROS Labs 07/26/23 06:59 07/26/23 06:59 Labs: Laboratory Results - last 24 hr 07/25/23 07/25/23 07/25/23 10:32 16:33 20:51 MCV MCH MCHC RDW Plt Count MPV Absolute Nucleated RBC Nucleated RBC % (auto) PT INR Anion Gap Estim Creat Clear Calc Estimated GFR POC Glucose 190 H 448 H* Random Glucose Calcium B-Natriuretic Peptide Respiratory Panel [place] See Note Adenovirus (Rapid PCR) Not Detected B.pert (TEM-PCR) Not Detected B.parapertussis DNA PCR Not Detected C. pneumoniae DNA (PCR) Not Detected Coronavirus OC43 (PCR) Not Detected Coronavirus HKU1 (PCR) Not Detected Coronavirus 229E (PCR) Not Detected Coronavirus NL63 (PCR) Not Detected Human Metapneumovir PCR Not Detected Influenza A (RT-PCR) Not Detected Influenza B (RT-PCR) Not Detected M. pneumoniae (PCR) Not Detected Parainfluenza 1 (PCR) Not Detected Parainfluenza 2 (PCR) Not Detected Parainfluenza 3 (PCR) Not Detected Parainfluenza 4 (PCR) Not Detected RSV (PCR) Not Detected Entero/Rhino (PCR) Detected A SARS-CoV-2 RNA (RT-PCR) Not Detected 07/26/23 07/26/23 07/26/23 06:59 07:05 10:50 MCV 86.0 MCH 27.6 MCHC 32.1 RDW 16.4 H Plt Count 206 MPV 10.0 Absolute Nucleated RBC 0.000 Nucleated RBC % (auto) 0.0 PT 49.1 H INR 4.0 H Anion Gap 18 Estim Creat Clear Calc 32.2 Estimated GFR 37 POC Glucose 467 H* 365 H* Random Glucose 517 H* Calcium 8.9 B-Natriuretic Peptide 860 H Respiratory Panel [place] Adenovirus (Rapid PCR) B.pert (TEM-PCR) B.parapertussis DNA PCR C. pneumoniae DNA (PCR) Coronavirus OC43 (PCR) Coronavirus HKU1 (PCR) Coronavirus 229E (PCR) Coronavirus NL63 (PCR) Human Metapneumovir PCR Influenza A (RT-PCR) Influenza B (RT-PCR) M. pneumoniae (PCR) Parainfluenza 1 (PCR) Parainfluenza 2 (PCR) Parainfluenza 3 (PCR) Parainfluenza 4 (PCR) RSV (PCR) Entero/Rhino (PCR) SARS-CoV-2 RNA (RT-PCR) Assessment and Plan (1) Anemia: Status: Acute (2) Dyspnea: Status: Acute Plan 63-year-old woman admitted with acute congestive heart failure exacerbation and asthma exacerbation Asthma exacerbation Wheezing is not as bad Solu-Medrol 60mg Q18h continue Schedule Xopenex mucinex for dry cough supplemental oxygen as needed RPP neg pulmonary consult for persistant wheezing>rec Doxycycline, Aerobika valve for CPT, sputum cx Heart failure with reduced ejection fraction echocardiogram 25-30%, severe aortic stenosis with valve area of 0.7 cm, mechanical mitral valve in place, severe TR Cardiology following Lasix drip 5 mg an hour hydralazine to 25 mg twice daily for afterload reduction, increse Isordil to 10 mg twice daily for preload reduction Monitor on conservation coordinator daily weight Strict intake and output neg 2.2L Persistent atrial fibrillation s/p digoxin 0.25 mg IV q.6 x2 continue amiodarone Warfarin Check PT INR daily Subtherapeutic INR. Resolved mechanical mitral valve INR goal 2.5-3.5 INR 4.0 today Hold warfarin follow INR closely, if falls below therapeutic consider Lovenox as supplemental therapy to reduce risk of clotting especially with mechanical Diabetes mellitus type 2 with hyperglycemia likely from steroids increase lantus to 20 units BID Sliding scale, mealtime insulin 6 units, ada diet Iron def anemia No acute bleeding As per Cardiology, transfuse for hematocrit greater than 30 s/p 1 unit of PRBCs low iron, continue supplement Back pain msk warm compress as needed tylenol prn Peripheral neuropathy, unspecified continue neurontin DISPO still not medically clear DVT prophylaxis with warfarin Attending Dr. Severino Full code continued hospital stay for treatment of acute congestive heart failure requiring IV diuretics and specialty consultation Quality Stroke Does the patient have a stroke diagnosis?: No VTE Prior VTE?: No VTE Risk Level:: Medical - moderate - high VTE Device Contraindication: Treatment Not Indicated VTE Drug Contraindication: N/A - Med Ordered
[2023-07-26] MEDS: Doxycycline Hyclate 100 MG in 0.9 % Sodium Chloride 250 ML 166.67 MG IV ×2 (12:24→22:18)
[2023-07-26] MEDS: Fluconazole 150 MG TABLET PO (12:31)
[2023-07-26] MEDS: Furosemide 200 MG in 0.9 % Sodium Chloride 80 ML IVCONT (14:42)
[2023-07-26 16:27] LABS: Glucose, Whole Blood 331 mg/dL (60-115)
[2023-07-26] MEDS: Insulin Lispro 100 UNIT/ML 3 ML VIAL 6 UNIT SUBCUT ×2 (16:58→22:20)
[2023-07-26 20:56] LABS: Glucose, Whole Blood 343 mg/dL (60-115)
[2023-07-26] MEDS: Insulin Glargine,Hum.rec.anlog 100 UNIT/ML 10 ML VIAL 20 UNIT SUBCUT (22:20)
[2023-07-27] VITALS (9 sets, daily range): BP systolic 125–177; BP diastolic 58–73; PULSE 79–89; RESP 16–20; TEMP 36.1–36.7; O2SAT 94–98; BMI 25.9; BMI 23.7
[2023-07-27] MEDS: methylPREDNISolone Sod Succ 40 MG/ML VIAL 60 MG IVPUSH ×3 (00:19→20:52)
[2023-07-27] MEDS: guaiFEN/Codeine SF 200/20/10ML 10 ML LIQUID 5 ML PO ×4 (00:19→20:57)
[2023-07-27] MEDS: Omeprazole 40 MG CAPSULE.DR PO ×2 (06:31→16:08)
[2023-07-27] MEDS: Sennosides 8.6 MG TABLET 17.2 MG PO (06:35)
[2023-07-27] MEDS: levalbuterol HCL 1.25 MG/3 ML VIAL.NEB INHALE ×3 (07:15→20:01)
[2023-07-27 07:36] LABS: INTERNATIONAL NORM RATIO 4.6 (0.9-1.1); Prothrombin Time 56.3 SEC (11.1-13.3)
[2023-07-27 07:49] LABS: Glucose, Whole Blood 178 mg/dL (60-115)
[2023-07-27] MEDS: Insulin Lispro 100 UNIT/ML 3 ML VIAL SUBCUT ×4 (08:50→20:53)
[2023-07-27] MEDS: Amiodarone HCL 200 MG TABLET PO (08:50)
[2023-07-27] MEDS: Gabapentin 300 MG CAPSULE PO ×2 (08:50→20:52)
[2023-07-27] MEDS: Insulin Lispro 100 UNIT/ML 3 ML VIAL 6 UNIT SUBCUT ×4 (08:50→20:53)
[2023-07-27] MEDS: Spironolactone 25 MG TABLET PO ×2 (08:51→20:52)
[2023-07-27] MEDS: Isosorbide Dinitrate 10 MG TABLET PO ×2 (08:51→12:42)
[2023-07-27] MEDS: SITagliptin Phosphate 100 MG TABLET PO (08:51)
[2023-07-27] MEDS: hydrALAZINE HCl 25 MG TABLET PO (08:51)
[2023-07-27] MEDS: guaiFENesin LA 600 MG TAB.ER.12H PO ×2 (08:51→20:52)
[2023-07-27] MEDS: Ferrous Sulfate 324 MG TABLET.DR PO (08:51)
[2023-07-27] MEDS: Insulin Glargine,Hum.rec.anlog 100 UNIT/ML 10 ML VIAL 20 UNIT SUBCUT ×2 (08:52→20:53)
[2023-07-27] MEDS: Doxycycline Hyclate 100 MG in 0.9 % Sodium Chloride 250 ML 166.67 MG IV ×2 (08:52→20:54)
--- NOTE | 2023-07-27 10:01 | P.PNCA_ITS ---
Subjective Subjective Date of Service: 07/27/23 Principal diagnosis: CHF, atrial fibrillation Interval history: Patient is again having shortness of breath today and he has wheezing. Has continued to diuresed about a L. overall negative balance of 5.2 L. continues to say that she feels congested and feels like she is not able to bring up the mucus Review of Systems Constitutional: Reports no additional constitutional complaints Cardiovascular: Denies chest pain, Denies leg edema, Denies lightheadedness, Denies Loss of Consciousness, Denies palpitations and Reports dyspnea Respiratory: Reports chest congestion, Reports dyspnea and Reports wheezing Gastrointestinal: Reports no additional gastrointestinal complaints Genitourinary: Reports no additional female genitourinary complaints Skin/Breast: Reports system reviewed and no additional complaints, except as docu Psychiatric: Reports no additional psychiatric complaints Endocrine: Denies palpitations Allergic/Immunologic: Reports wheezing Physical Exam Vital Signs: Last Vital Signs Temp 97.1 F 07/27/23 08:00 Pulse 85 07/27/23 08:00 Resp 18 07/27/23 08:00 BP 161/70 H 07/27/23 08:00 Pulse Ox 97 07/27/23 08:00 O2 Del Method Room Air 07/27/23 08:00 O2 Flow Rate 2 07/22/23 06:19 Oxygen Flow Rate 2 07/22/23 05:50 BMI result Body Mass Index 23.7 Const General: cooperative Nutritional Appearance: average body habitus Orientation/consciousness: patient oriented x3 Neck Neck: Yes trachea midline, Yes supple and Yes no JVD Resp Effort & Inspection: normal respiratory effort Auscultation: wheezes scattered wheezes Cardio Jugular venous distension: no JVD Rate: regular rate Rhythm: abnormal rhythm irregularly irregular Heart sounds: S1 normal heart sound present ([place] [facility] mitral valve) and Murmur heart sound present systolic late, decrescendo and crescendo GI Auscultation: normal bowel sounds Skin General skin exam: no rashes or lesions noted and ecchymosis Neuro General: patient oriented x3 and no focal motor deficits Extrem General: No clubbing, No cyanosis and Yes edema Objective Labs and Meds 07/26/23 06:59 07/26/23 06:59 Lab results: Laboratory Results - last 24 hr 07/26/23 07/26/23 07/26/23 10:50 16:21 20:52 Hold Purple Top PT INR POC Glucose 365 H* 331 H 343 H 07/27/23 07/27/23 06:54 07:37 Hold Purple Top SEE NOTE PT 56.3 H INR 4.6 H POC Glucose 178 H Progress Note: A&P Assessment and plan (1) CHF exacerbation: Status: Acute Assessment and Plan: CHF exacerbation with systolic dysfunction with increased wheezing today. Her current symptoms are more likely related to bronchospastic airway disease rather than congestive heart failure. This point time will check her blood work today and if his BNP is down trending switch her to oral diuretic therapy with bumetanide 2 mg daily. Continue spironolactone. Currently being used amiodarone for rate control. No angiotensin receptor zechariah related to her allergies. Increase hydralazine to 50 mg b.i.d. for afterload reduction. Continue Isordil therapy. She also has underlying aortic stenosis which will require evaluation as outpatient once her viral syndrome and bronchospastic airway disease as improved. (2) Persistent atrial fibrillation: Status: Acute Assessment and Plan: Persistent atrial fibrillation, currently rate controlled with amiodarone. Continue the same. Currently on full oral anticoagulation warfarin. Maintain target INR between 2.5 and 3.5. (3) H/O mitral valve replacement with mechanical valve: Status: Acute Assessment and Plan: Mitral valve replacement, working well. Continue warfarin therapy. Will follow with you Time Spent With Patient Time: Total time managing care of this patient today ____ minutes. Progress Note: Quality Stroke Does the patient have a stroke diagnosis?: No Procedures Date of Service Date of Service: 07/27/23
[2023-07-27 10:02] LABS: Anion Gap 16 (12-20); Blood Urea Nitrogen 62 mg/dL (9-16); Calcium 9.2 mg/dL (8.4-10.2); Carbon Dioxide 31 mmol/L (22-29); Chloride 97 mmol/L (96-108); Creatinine Clr Calc Pharmacy 35.1; Estimated Glomerular Filt Rate 40; Glucose Random 284 mg/dL (60-115); Potassium 3.8 mmol/L (3.3-5.1); Sodium 140 mmol/L (135-145)
[2023-07-27 11:29] LABS: Glucose, Whole Blood 245 mg/dL (60-115)
--- NOTE | 2023-07-27 12:27 | HO.PM.IMPN ---
Subjective Subjective Date of Service: 07/27/23 Interval History: seen and examined this morning follow up for asthma/rhinovirus, CHF ongoing cough, mild SOB with exertion no chest pain Review of Systems Review of Systems: Yes all other systems are reviewed and are negative Constitutional Constitutional: Denies chills and Denies fever(s) Cardiovascular Cardiovascular: Denies chest pain, Denies palpitations and Reports dyspnea on exertion Respiratory Respiratory: Reports cough and Reports dyspnea on exertion Endocrine Endocrine: Denies palpitations Physical Exam Vital Signs: Vital Signs: Last Vital Signs Temp 98.1 F 07/27/23 11:56 Pulse 89 07/27/23 11:56 Resp 18 07/27/23 11:56 BP 125/58 L 07/27/23 11:56 Pulse Ox 96 07/27/23 11:56 O2 Del Method Room Air 07/27/23 11:56 O2 Flow Rate 2 07/22/23 06:19 Oxygen Flow Rate 2 07/22/23 05:50 BMI result Body Mass Index 23.7 Const: General: cooperative, comfortable, no acute distress, alert and awake Nutritional Appearance: average body habitus Orientation/consciousness: patient oriented x3 Resp: Other: expiratory wheeze Effort & Inspection: normal respiratory effort, able to speak in complete sentences, no respiratory distress and no use of accessory muscles Cardio: Rate: regular rate Neuro: General: patient oriented x3, moves all extremities and CN's II-XI intact bilaterally Extrem: Other: b/l 1+pitting edema Objective Data Active Medications Acetaminophen (Acetaminophen 325 Mg Tablet) 650 mg PO Q6H PRN PRN Reason: Pain, Mild (Pain Scale 1-3) Last Admin: 07/24/23 14:53 Dose: 650 mg Documented By: LATRICE Albuterol/Ipratropium (Albuterol/Iprat 2.5/0.5mg 3 Ml Ampul.Neb) 3 ml INHALE Q4H PRN PRN Reason: Wheezing Last Admin: 07/23/23 08:16 Dose: 3 ml Documented By: KEMI Amiodarone HCl (Amiodarone Hcl 200 Mg Tablet) 200 mg PO DAILY [facility] Last Admin: 07/27/23 08:50 Dose: 200 mg Documented By: TERESA Dextrose (Dextrose 50 % 25 Gm/50 Ml Syringe) 25 gm IVPUSH Q15M PRN; Protocol PRN Reason: per Hypoglycemia Standing Ord. Ferrous Sulfate (Ferrous Sulfate 324 Mg Tablet.) 324 mg PO DAILY [facility] Last Admin: 07/27/23 08:51 Dose: 324 mg Documented By: TERESA Gabapentin (Gabapentin 300 Mg Capsule) 300 mg PO BID [facility] Last Admin: 07/27/23 08:50 Dose: 300 mg Documented By: TERESA Glucose (Glucose Gel 15 Gm Gel..Gram.) 15 gm PO Q15M PRN; Protocol PRN Reason: per Hypoglycemia Standing Ord. Guaifenesin (Guaifenesin La 600 Mg Tab.Er.12h) 600 mg PO BID [facility] Last Admin: 07/27/23 08:51 Dose: 600 mg Documented By: TERESA Guaifenesin/Codeine Phosphate (Guaifen/Codeine Sf 200/20/10ml 10 Ml Liquid) 5 ml PO Q6H PRN PRN Reason: cough Last Admin: 07/27/23 06:35 Dose: 5 ml Documented By: MARIUSZ Hydralazine HCl (Hydralazine Hcl 25 Mg Tablet) 25 mg PO BID [facility]; Protocol Last Admin: 07/27/23 08:51 Dose: 25 mg Documented By: TERESA Furosemide 200 mg/ Sodium (Chloride) 100 mls @ 2.5 mls/hr IVCONT .Q24H [facility] Last Admin: 07/26/23 14:42 Dose: 5 mg/hr, 2.5 mls/hr Documented By: EROS Doxycycline Hyclate 100 mg/ (Sodium Chloride) 250 mls @ 166.67 mls/hr IV BID [facility] Last Infusion: 07/27/23 10:27 Dose: Infused Documented By: TERESA Insulin Glargine (Insulin Glargine,Hum.Rec.Anlog 100 Unit/Ml 10 Ml Vial) 20 unit SUBCUT BID [facility] Last Admin: 07/27/23 08:52 Dose: 20 unit Documented By: TERESA Insulin Human Lispro (Insulin Lispro 100 Unit/Ml 3 Ml Vial) 0 unit SUBCUT QIDACHS [facility]; Protocol Last Admin: 07/27/23 08:50 Dose: 2 unit Documented By: TERESA Insulin Human Lispro (Insulin Lispro 100 Unit/Ml 3 Ml Vial) 6 unit SUBCUT QIDACHS [facility] Last Admin: 07/27/23 08:50 Dose: 6 unit Documented By: TERESA Isosorbide Dinitrate (Isosorbide Dinitrate 10 Mg Tablet) 10 mg PO 0800,1300 [facility]; Protocol Last Admin: 07/27/23 08:51 Dose: 10 mg Documented By: TERESA Levalbuterol HCl (Levalbuterol Hcl 1.25 Mg/3 Ml Vial.Neb) 1.25 mg INHALE RTID [facility] Last Admin: 07/27/23 07:15 Dose: 1.25 mg Documented By: SONI Lorazepam (Lorazepam 0.5 Mg Tablet) 0.25 mg PO Q6H PRN PRN Reason: Anxiety Last Admin: 07/24/23 22:36 Dose: 0.25 mg Documented By: ZBIGNIEW Methylprednisolone Sodium Succinate (Methylprednisolone Sod Succ 40 Mg/Ml Vial) 60 mg IVPUSH Q8H [facility] Last Admin: 07/27/23 08:51 Dose: 60 mg Documented By: TERESA Omeprazole (Omeprazole 40 Mg Capsule.) 40 mg PO BID@0630,1630 [facility] Last Admin: 07/27/23 06:31 Dose: 40 mg Documented By: MARIUSZ Ondansetron HCl (Ondansetron Hcl 4 Mg/2 Ml Vial) 4 mg IVPUSH Q8H PRN PRN Reason: Nausea and Vomiting Senna (Sennosides 8.6 Mg Tablet) 17.2 mg PO DAILY PRN PRN Reason: constipation Last Admin: 07/27/23 06:35 Dose: 17.2 mg Documented By: MARIUSZ Sitagliptin Phosphate (Sitagliptin Phosphate 100 Mg Tablet) 100 mg PO DAILY [facility] Last Admin: 07/27/23 08:51 Dose: 100 mg Documented By: TERESA Sodium Chloride (0.9 % Sodium Chloride Flush 3 Ml Syringe) [facility] Last Admin: 07/27/23 08:52 Dose: 3 ml Documented By: TERESA Spironolactone (Spironolactone 25 Mg Tablet) 25 mg PO BID [facility]; Protocol Last Admin: 07/27/23 08:51 Dose: 25 mg Documented By: TERESA Warfarin Sodium (Warfarin Sodium 1 Mg Tablet) 1 mg PO Q48H [facility] Last Admin: 07/24/23 18:47 Dose: 1 mg Documented By: LATRICE Warfarin Sodium (Warfarin Sodium 2.5 Mg Tablet) 2.5 mg PO Q48H [facility] Last Admin: 07/25/23 17:42 Dose: 2.5 mg Documented By: EROS Labs 07/26/23 06:59 07/27/23 09:12 Labs: Laboratory Results - last 24 hr 07/26/23 07/26/23 07/27/23 16:21 20:52 06:54 Hold Purple Top SEE NOTE PT 56.3 H INR 4.6 H Anion Gap Estim Creat Clear Calc Estimated GFR POC Glucose 331 H 343 H Random Glucose Calcium 07/27/23 07/27/23 07/27/23 07:37 09:12 11:24 Hold Purple Top PT INR Anion Gap 16 Estim Creat Clear Calc 35.1 Estimated GFR 40 POC Glucose 178 H 245 H Random Glucose 284 H Calcium 9.2 Microbiology Microbiology Results: Microbiology 07/22/23 08:17 Blood Culture - Final Blood - Venous No growth after 5 days. 07/22/23 08:17 Blood Culture - Final Blood - Venous No growth after 5 days. Assessment and Plan (1) Rhinovirus: Status: Acute (2) CHF exacerbation: Status: Acute Plan This is a 63-year-old woman admitted with acute congestive heart failure exacerbation and asthma exacerbation found to have rhinovirus Asthma exacerbation exacerbated by rhinovirus continue Solu-Medrol 60mg Q8h continue Scheduled Xopenex mucinex for cough not currently requiring supplemental oxygen RPP positive for rhinovirus pulmonary consult for persistent wheezing>rec Doxycycline, Aerobika valve for CPT, sputum cx pending Heart failure with reduced ejection fraction echocardiogram 25-30%, severe aortic stenosis with valve area of 0.7 cm, mechanical mitral valve in place, severe TR Cardiology following continue Lasix drip 5 mg an hour for now hydralazine increased to 50 mg twice daily for afterload reduction, Isordil to 10 mg twice daily for preload reduction continue aldactone 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 Reveles Full code dispo: pt rec home with services when medically ready continued hospital stay for treatment of acute congestive heart failure requiring IV diuretics and specialty consultation Quality Stroke Does the patient have a stroke diagnosis?: No VTE Prior VTE?: No VTE Risk Level:: Medical - moderate - high VTE Device Contraindication: Treatment Not Indicated VTE Drug Contraindication: N/A - Med Ordered
[2023-07-27 15:32] LABS: B Type Natriuretic Peptide 596 pg/mL (<100)
[2023-07-27 15:51] LABS: Glucose, Whole Blood 176 mg/dL (60-115)
[2023-07-27] MEDS: Furosemide 200 MG in 0.9 % Sodium Chloride 80 ML IVCONT (16:08)
[2023-07-27 20:04] LABS: Glucose, Whole Blood 247 mg/dL (60-115)
[2023-07-27] MEDS: hydrALAZINE HCl 50 MG TABLET PO (20:52)
[2023-07-28] VITALS (10 sets, daily range): BP systolic 138–196; BP diastolic 62–115; PULSE 81–103; RESP 18–20; TEMP 36.5–37.6; O2SAT 92–98; BMI 24.6
[2023-07-28] MEDS: guaiFEN/Codeine SF 200/20/10ML 10 ML LIQUID 5 ML PO (02:57)
[2023-07-28] MEDS: Omeprazole 40 MG CAPSULE.DR PO ×2 (06:14→16:22)
[2023-07-28 07:23] LABS: Hematocrit 30.3 % (37.0-47.0); Hemoglobin 9.8 g/dl (12.0-16.0); Mean Corpuscular HGB Conc 32.3 g/dl (31.0-35.0); Mean Corpuscular Hemoglobin 27.4 pg (27.0-33.0); Mean Corpuscular Volume 84.6 fL (80.0-98.0); Mean Platelet Volume 9.6 fL (9.4-12.3); Platelet Count 204 X10*3/uL (160-400); Red Blood Count 3.58 X10*6/uL (4.20-5.50); Red Cell Distribution Width 16.3 % (11.0-16.0); White Blood Count 6.5 X10*3/uL (4.8-10.8)
[2023-07-28 07:29] LABS: INTERNATIONAL NORM RATIO 4.3 (0.9-1.1); Prothrombin Time 52.6 SEC (11.1-13.3)
[2023-07-28 07:38] LABS: Anion Gap 14 (12-20); Blood Urea Nitrogen 67 mg/dL (9-16); Calcium 8.7 mg/dL (8.4-10.2); Carbon Dioxide 31 mmol/L (22-29); Chloride 98 mmol/L (96-108); Creatinine Clr Calc Pharmacy 40.4; Estimated Glomerular Filt Rate 43; Potassium 3.7 mmol/L (3.3-5.1); Sodium 139 mmol/L (135-145)
[2023-07-28 07:42] LABS: Glucose Random 399 mg/dL (60-115)
[2023-07-28] MEDS: methylPREDNISolone Sod Succ 40 MG/ML VIAL 60 MG IVPUSH ×2 (08:23→20:22)
[2023-07-28] MEDS: Insulin Glargine,Hum.rec.anlog 100 UNIT/ML 10 ML VIAL 20 UNIT SUBCUT ×2 (08:24→20:55)
[2023-07-28] MEDS: Insulin Lispro 100 UNIT/ML 3 ML VIAL 6 UNIT SUBCUT ×4 (08:24→20:55)
[2023-07-28] MEDS: guaiFENesin LA 600 MG TAB.ER.12H PO ×2 (08:25→20:22)
[2023-07-28] MEDS: Spironolactone 25 MG TABLET PO ×2 (08:25→20:22)
[2023-07-28] MEDS: Acetaminophen 325 MG TABLET 650 MG PO (08:25)
[2023-07-28] MEDS: Ferrous Sulfate 324 MG TABLET.DR PO (08:25)
[2023-07-28] MEDS: Amiodarone HCL 200 MG TABLET PO (08:25)
[2023-07-28] MEDS: Isosorbide Dinitrate 10 MG TABLET PO ×2 (08:25→12:40)
[2023-07-28] MEDS: hydrALAZINE HCl 50 MG TABLET PO ×2 (08:25→20:22)
[2023-07-28] MEDS: Gabapentin 300 MG CAPSULE PO ×2 (08:25→20:22)
[2023-07-28] MEDS: SITagliptin Phosphate 100 MG TABLET PO (08:25)
[2023-07-28] MEDS: Doxycycline Hyclate 100 MG in 0.9 % Sodium Chloride 250 ML 166.67 MG IV (08:27)
[2023-07-28 08:32] LABS: Glucose, Whole Blood 328 mg/dL (60-115)
[2023-07-28] MEDS: Insulin Lispro 100 UNIT/ML 3 ML VIAL SUBCUT ×4 (08:45→20:54)
--- NOTE | 2023-07-28 09:34 | MHC.CM.PN ---
Patient is not yet medically cleared for dc (IV Doxycycline, IV Lasix, IV Solu Medrol); home with services is the goal and CM will continue to follow.
--- NOTE | 2023-07-28 09:48 | P.PNPL_ITS ---
Subjective Subjective Date of Service: 07/28/23 Principal diagnosis: CHF, atrial fibrillation Interval history: Seen and examined. Having a hard time this am. Her wheezing is worse this am. Objective Data Labs 07/28/23 06:59 07/28/23 06:59 Labs: Laboratory Results - last 24 hr 07/27/23 07/27/23 07/27/23 09:12 11:24 15:06 WBC RBC Hgb Hct MCV MCH MCHC RDW Plt Count MPV Absolute Nucleated RBC Nucleated RBC % (auto) PT INR Sodium 140 Potassium 3.8 Chloride 97 Carbon Dioxide 31 H Anion Gap 16 BUN 62 H Creatinine 1.32 Estim Creat Clear Calc 35.1 Estimated GFR 40 POC Glucose 245 H Random Glucose 284 H Calcium 9.2 B-Natriuretic Peptide 596 H 07/27/23 07/27/23 07/28/23 15:40 19:23 06:59 WBC 6.5 RBC 3.58 L Hgb 9.8 L Hct 30.3 L MCV 84.6 MCH 27.4 MCHC 32.3 RDW 16.3 H Plt Count 204 MPV 9.6 Absolute Nucleated RBC 0.000 Nucleated RBC % (auto) 0.0 PT 52.6 H INR 4.3 H Sodium 139 Potassium 3.7 Chloride 98 Carbon Dioxide 31 H Anion Gap 14 BUN 67 H Creatinine 1.24 Estim Creat Clear Calc 40.4 Estimated GFR 43 POC Glucose 176 H 247 H Random Glucose 399 H* Calcium 8.7 B-Natriuretic Peptide 07/28/23 08:04 WBC RBC Hgb Hct MCV MCH MCHC RDW Plt Count MPV Absolute Nucleated RBC Nucleated RBC % (auto) PT INR Sodium Potassium Chloride Carbon Dioxide Anion Gap BUN Creatinine Estim Creat Clear Calc Estimated GFR POC Glucose 328 H Random Glucose Calcium B-Natriuretic Peptide Microbiology Microbiology Results: Microbiology 07/26/23 22:45 Sputum - Expectorated Gram Stain - Final 07/26/23 22:45 Sputum - Expectorated Sputum Culture - Preliminary 07/22/23 08:17 Blood - Venous Blood Culture - Final No growth after 5 days. 07/22/23 08:17 Blood - Venous Blood Culture - Final No growth after 5 days. Review of Systems Constitutional: Reports no additional constitutional complaints Cardiovascular: Reports leg edema, Denies lightheadedness, Denies Loss of Consciousness, Reports dyspnea and Reports dyspnea on exertion Respiratory: Reports change in phlegm color, Reports chest congestion, Reports cough, Denies hemoptysis, Reports dyspnea, Reports dyspnea on exertion and Reports wheezing Gastrointestinal: Reports no additional gastrointestinal complaints Genitourinary: Reports no additional female genitourinary complaints Reports system reviewed and no additional complaints, except as documented Allergic/Immunologic: Reports wheezing Physical Exam 2 Vital Signs: Vital Signs: Last Vital Signs Temp 97.8 F 07/28/23 08:00 Pulse 90 07/28/23 08:00 Resp 18 07/28/23 08:00 BP 196/78 H 07/28/23 08:00 Pulse Ox 97 07/28/23 08:00 O2 Del Method Room Air 07/28/23 08:00 O2 Flow Rate 2 07/22/23 06:19 Oxygen Flow Rate 2 07/22/23 05:50 BMI result Body Mass Index 24.6 Const: General: cooperative and in distress moderate and respiratory N utritional Appearance: average body habitus Orientation/consciousness: p atient oriented x3 Neck: Neck: Yes trachea midline, Yes supple and Yes JVD Chest: Chest palpation & inspection: normal inspection of the chest Resp: Effort & Inspection: prolonged expiratory phase Auscultation: wheezes scattered wheezes and diminished lung sounds Cardio: Rate: tachycardic Heart sounds: S1 normal heart sound present, S2 normal heart sound present and Murmur heart sound present systolic GI: Auscultation: normal bowel sounds Skin: General skin exam: no rashes or lesions noted and ecchymosis Neuro: General: patient oriented x3 and no focal motor deficits Extrem: General: No clubbing, No cyanosis and Yes edema Procedures Date of Service Date of Service: 07/28/23 Assessment and Plan Assessment and plan (1) Asthma exacerbation: Status: Acute (2) Viral syndrome: Status: Acute (3) Bronchitis: Status: Acute (4) Cardiomyopathy: Status: Acute (5) Secondary pulmonary arterial hypertension: Status: Acute Plan continue solumedrol, Additional Solumedrol 125mg IV x 1 2gm magnesium sulfate 10mg albuterol x 1 now stop Doxycycline per the pts request repeat CXR Aerobika flutter valve for CPT sputum cx NGTD continue nebulizer therapy diuresis as tolerated Time Spent With Patient Time: Total time managing care of this patient today ____ minutes. Progress Note: Quality Stroke Does the patient have a stroke diagnosis?: No
[2023-07-28] MEDS: Albuterol Sulfate 7.5 MG, Albuterol Sulfate (0.083%) 2.5 MG 10 MG INHALE (09:55)
--- NOTE | 2023-07-28 10:21 | HO.PM.IMPN ---
Subjective Subjective Date of Service: 07/28/23 Interval History: seen and examined this morning follow up for CHF, rhinovirus feeling more short of breath this morning still wheezing, reports lots of coughing Review of Systems Review of Systems: Yes all other systems are reviewed and are negative Constitutional Constitutional: Denies chills and Denies fever(s) Cardiovascular Cardiovascular: Denies chest pain, Denies palpitations and Reports dyspnea on exertion Respiratory Respiratory: Reports cough and Reports dyspnea on exertion Endocrine Endocrine: Denies palpitations Physical Exam Vital Signs: Vital Signs: Last Vital Signs Temp 97.8 F 07/28/23 08:00 Pulse 85 07/28/23 09:57 Resp 18 07/28/23 09:57 BP 196/78 H 07/28/23 08:00 Pulse Ox 97 07/28/23 08:00 O2 Del Method Room Air 07/28/23 08:00 O2 Flow Rate 2 07/22/23 06:19 Oxygen Flow Rate 2 07/22/23 05:50 BMI result Body Mass Index 24.6 Const: General: cooperative, comfortable, no acute distress, alert and awake Nutritional Appearance: average body habitus Orientation/consciousness: patient oriented x3 Resp: Other: expiratory wheeze Effort & Inspection: normal respiratory effort, able to speak in complete sentences, no respiratory distress and no use of accessory muscles Cardio: Rate: regular rate Neuro: General: patient oriented x3, moves all extremities and CN's II-XI intact bilaterally Extrem: Other: b/l 1+pitting edema Objective Data Active Medications Acetaminophen (Acetaminophen 325 Mg Tablet) 650 mg PO Q6H PRN PRN Reason: Pain, Mild (Pain Scale 1-3) Last Admin: 07/28/23 08:25 Dose: 650 mg Documented By: SARAH Albuterol/Ipratropium (Albuterol/Iprat 2.5/0.5mg 3 Ml Ampul.Neb) 3 ml INHALE Q4H PRN PRN Reason: Wheezing Last Admin: 07/23/23 08:16 Dose: 3 ml Documented By: KEMI Amiodarone HCl (Amiodarone Hcl 200 Mg Tablet) 200 mg PO DAILY [facility] Last Admin: 07/28/23 08:25 Dose: 200 mg Documented By: SARAH Bumetanide (Bumetanide 1 Mg Tablet) 2 mg PO DAILY [facility]; Protocol Dextrose (Dextrose 50 % 25 Gm/50 Ml Syringe) 25 gm IVPUSH Q15M PRN; Protocol PRN Reason: per Hypoglycemia Standing Ord. Ferrous Sulfate (Ferrous Sulfate 324 Mg Tablet.) 324 mg PO DAILY [facility] Last Admin: 07/28/23 08:25 Dose: 324 mg Documented By: SARAH Gabapentin (Gabapentin 300 Mg Capsule) 300 mg PO BID [facility] Last Admin: 07/28/23 08:25 Dose: 300 mg Documented By: SARAH Glucose (Glucose Gel 15 Gm Gel..Gram.) 15 gm PO Q15M PRN; Protocol PRN Reason: per Hypoglycemia Standing Ord. Guaifenesin (Guaifenesin La 600 Mg Tab.Er.12h) 600 mg PO BID [facility] Last Admin: 07/28/23 08:25 Dose: 600 mg Documented By: SARAH Guaifenesin/Codeine Phosphate (Guaifen/Codeine Sf 200/20/10ml 10 Ml Liquid) 10 ml PO Q6H PRN PRN Reason: cough Hydralazine HCl (Hydralazine Hcl 50 Mg Tablet) 50 mg PO BID [facility]; Protocol Last Admin: 07/28/23 08:25 Dose: 50 mg Documented By: SARAH Furosemide 200 mg/ Sodium (Chloride) 100 mls @ 2.5 mls/hr IVCONT .Q24H [facility] Last Infusion: 07/28/23 08:02 Dose: 0 mg/hr, 0 mls/hr Documented By: SARAH Magnesium Sulfate (Magnesium Sulfate/H2o) 2 gm in 50 mls @ 25 mls/hr IV ONCE ONE Stop: 07/28/23 11:40 Insulin Glargine (Insulin Glargine,Hum.Rec.Anlog 100 Unit/Ml 10 Ml Vial) 20 unit SUBCUT BID [facility] Last Admin: 07/28/23 08:24 Dose: 20 unit Documented By: SARAH Insulin Human Lispro (Insulin Lispro 100 Unit/Ml 3 Ml Vial) 0 unit SUBCUT QIDACHS [facility]; Protocol Last Admin: 07/28/23 08:45 Dose: 8 unit Documented By: SARAH Insulin Human Lispro (Insulin Lispro 100 Unit/Ml 3 Ml Vial) 6 unit SUBCUT QIDACHS [facility] Last Admin: 07/28/23 08:24 Dose: 6 unit Documented By: SARAH Isosorbide Dinitrate (Isosorbide Dinitrate 10 Mg Tablet) 10 mg PO 0800,1300 [facility]; Protocol Last Admin: 07/28/23 08:25 Dose: 10 mg Documented By: SARAH Levalbuterol HCl (Levalbuterol Hcl 1.25 Mg/3 Ml Vial.Giuliano) 1.25 mg INHALE RTID [facility] Last Admin: 07/28/23 07:41 Dose: Not Given Documented By: MONSERRAT Non-Admin Reason: Patient Refused Methylprednisolone Sodium Succinate (Methylprednisolone Sod Succ 40 Mg/Ml Vial) 60 mg IVPUSH Q12H [facility] Last Admin: 07/28/23 08:23 Dose: 60 mg Documented By: SARAH Omeprazole (Omeprazole 40 Mg Capsule.) 40 mg PO BID@0630,1630 [facility] Last Admin: 07/28/23 06:14 Dose: 40 mg Documented By: JOEL Ondansetron HCl (Ondansetron Hcl 4 Mg/2 Ml Vial) 4 mg IVPUSH Q8H PRN PRN Reason: Nausea and Vomiting Senna (Sennosides 8.6 Mg Tablet) 17.2 mg PO DAILY PRN PRN Reason: constipation Last Admin: 07/27/23 06:35 Dose: 17.2 mg Documented By: MARIUSZ Sitagliptin Phosphate (Sitagliptin Phosphate 100 Mg Tablet) 100 mg PO DAILY [facility] Last Admin: 07/28/23 08:25 Dose: 100 mg Documented By: SARAH Sodium Chloride (0.9 % Sodium Chloride Flush 3 Ml Syringe) 3 ml IVFLUSH QSHIFT [facility] Last Admin: 07/28/23 08:25 Dose: 3 ml Documented By: SARAH Spironolactone (Spironolactone 25 Mg Tablet) 25 mg PO BID [facility]; Protocol Last Admin: 07/28/23 08:25 Dose: 25 mg Documented By: SARAH Warfarin Sodium (Warfarin Sodium 1 Mg Tablet) 1 mg PO Q48H [facility] Last Admin: 07/24/23 18:47 Dose: 1 mg Documented By: LATRICE Warfarin Sodium (Warfarin Sodium 2.5 Mg Tablet) 2.5 mg PO Q48H [facility] Last Admin: 07/25/23 17:42 Dose: 2.5 mg Documented By: EROS Labs 07/28/23 06:59 07/28/23 06:59 Labs: Laboratory Results - last 24 hr 07/27/23 07/27/23 07/27/23 11:24 15:06 15:40 MCV MCH MCHC RDW Plt Count MPV Absolute Nucleated RBC Nucleated RBC % (auto) PT INR Anion Gap Estim Creat Clear Calc Estimated GFR POC Glucose 245 H 176 H Random Glucose Calcium B-Natriuretic Peptide 596 H 07/27/23 07/28/23 07/28/23 19:23 06:59 08:04 MCV 84.6 MCH 27.4 MCHC 32.3 RDW 16.3 H Plt Count 204 MPV 9.6 Absolute Nucleated RBC 0.000 Nucleated RBC % (auto) 0.0 PT 52.6 H INR 4.3 H Anion Gap 14 Estim Creat Clear Calc 40.4 Estimated GFR 43 POC Glucose 247 H 328 H Random Glucose 399 H* Calcium 8.7 B-Natriuretic Peptide Microbiology Microbiology Results: Microbiology 07/26/23 22:45 Gram Stain - Final Sputum - Expectorated Sputum Culture - Preliminary 07/22/23 08:17 Blood Culture - Final Blood - Venous No growth after 5 days. 07/22/23 08:17 Blood Culture - Final Blood - Venous No growth after 5 days. Assessment and Plan (1) Rhinovirus: Status: Acute (2) Asthma exacerbation: Status: Acute (3) CHF exacerbation: Status: Acute Plan This is a 63-year-old woman admitted with acute congestive heart failure exacerbation and asthma exacerbation found to have rhinovirus Asthma exacerbation due to rhinovirus continue Solu-Medrol, given extra dose this am by pulmonology as well as IV magnesium continue Scheduled Xopenex symptomatic support for cough not currently requiring supplemental oxygen RPP positive for rhinovirus seen by pulmonary >Aerobika valve for CPT, sputum cx from 07/26 showing mixed respiratory adry, repeat sputum culture ordered 07/28; pt requests doxy to be stopped Heart failure with reduced ejection fraction echocardiogram 25-30%, severe aortic stenosis with valve area of 0.7 cm, mechanical mitral valve in place, severe TR Cardiology following continue Lasix drip 5 mg an hour for now hydralazine increased to 50 mg twice daily for afterload reduction, Isordil to 10 mg twice daily for preload reduction continue aldactone 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 Resolved mechanical mitral valve INR goal 2.5-3.5 INR 4.3 Hold warfarin follow INR closely, if falls below therapeutic consider Lovenox as supplemental therapy to reduce risk of clotting Diabetes mellitus type 2 with hyperglycemia due to steroids Hba1c 7.1 increase lantus to 20 units BID Sliding scale, mealtime insulin 6 units, ada diet continue januvia Iron def anemia heme + but no overt bleeding As per Cardiology, transfuse for hematocrit greater than 30 s/p 1 unit of PRBCs low iron, continue supplement H/H stable needs to remain on AC due to mechanical mitral valve Back pain msk warm compress as needed tylenol prn Peripheral neuropathy, unspecified continue neurontin DVT prophylaxis with warfarin Attending Dr. Reveles Full code dispo: pt rec home with services when medically ready continued hospital stay for treatment of acute congestive heart failure requiring IV diuretics, IV steroids, specialty consultation and close monitoring of respiratory status Quality Stroke Does the patient have a stroke diagnosis?: No VTE Prior VTE?: No VTE Risk Level:: Medical - moderate - high VTE Device Contraindication: Treatment Not Indicated VTE Drug Contraindication: N/A - Med Ordered
--- NOTE | 2023-07-28 10:35 | PM.PNCARD ---
Subjective Subjective Date of Service: 07/28/23 Principal diagnosis: CHF, atrial fibrillation Interval history: Patient is short of breath still and still wheezing significantly. she says her antibiotics were changed and steroids or uptitrated and her bronchodilators change. Urine output is tepid. Creatinine is improved. BNP yesterday at down trended in to the upper 500 range. She says she still has leg edema. Review of Systems Constitutional: Reports weakness Eyes: Reports no additional eye complaints Cardiovascular: Denies chest pain, Reports leg edema, Denies Loss of Consciousness, Denies palpitations and Reports dyspnea Respiratory: Reports chest congestion, Reports cough, Reports dyspnea and Reports wheezing Gastrointestinal: Reports no additional gastrointestinal complaints Musculoskeletal: Reports no additional musculoskeletal complaints Skin/Breast: Reports system reviewed and no additional complaints, except as docu Reports weakness Psychiatric: Reports no additional psychiatric complaints Endocrine: Denies palpitations Allergic/Immunologic: Reports wheezing Physical Exam Vital Signs: Last Vital Signs Temp 97.8 F 07/28/23 08:00 Pulse 85 07/28/23 09:57 Resp 18 07/28/23 09:57 BP 196/78 H 07/28/23 08:00 Pulse Ox 97 07/28/23 08:00 O2 Del Method Room Air 07/28/23 08:00 O2 Flow Rate 2 07/22/23 06:19 Oxygen Flow Rate 2 07/22/23 05:50 BMI result Body Mass Index 24.6 Const General: cooperative and in distress mild and respiratory Orientation/consciousness: patient oriented x3 Neck Neck: Yes trachea midline, Yes supple and Yes JVD Resp Effort & Inspection: normal respiratory effort Auscultation: wheezes scattered wheezes Cardio Jugular venous distension: JVD Rhythm: abnormal rhythm irregularly irregular Heart sounds: S2 normal heart sound present, no click, no gallops, Murmur heart sound present systolic late and Other heart sounds present (Louisa opening and closing click of mitral valve) GI Auscultation: normal bowel sounds Skin General skin exam: no rashes or lesions noted Neuro General: patient oriented x3 Extrem General: No clubbing, No cyanosis and Yes edema Objective Labs and Meds 07/28/23 06:59 07/28/23 06:59 Lab results: Laboratory Results - last 24 hr 07/27/23 07/27/23 07/27/23 11:24 15:06 15:40 WBC RBC Hgb Hct MCV MCH MCHC RDW Plt Count MPV Absolute Nucleated RBC Nucleated RBC % (auto) PT INR Sodium Potassium Chloride Carbon Dioxide Anion Gap BUN Creatinine Estim Creat Clear Calc Estimated GFR POC Glucose 245 H 176 H Random Glucose Calcium B-Natriuretic Peptide 596 H 07/27/23 07/28/23 07/28/23 19:23 06:59 08:04 WBC 6.5 RBC 3.58 L Hgb 9.8 L Hct 30.3 L MCV 84.6 MCH 27.4 MCHC 32.3 RDW 16.3 H Plt Count 204 MPV 9.6 Absolute Nucleated RBC 0.000 Nucleated RBC % (auto) 0.0 PT 52.6 H INR 4.3 H Sodium 139 Potassium 3.7 Chloride 98 Carbon Dioxide 31 H Anion Gap 14 BUN 67 H Creatinine 1.24 Estim Creat Clear Calc 40.4 Estimated GFR 43 POC Glucose 247 H 328 H Random Glucose 399 H* Calcium 8.7 B-Natriuretic Peptide Progress Note: A&P Assessment and plan (1) CHF exacerbation: Status: Acute Assessment and Plan: Patient still having trouble breathing. Urine output as reduced. She complains of leg edema and shortness of breath. I think she still volume overloaded, under appreciated. I would restart on Lasix drip and continue diurese her. Her creatinine has improved gradually with diuresis. I thing it should improve further with further diuresis. Continue to up titrate hydralazine. Overall prognosis is guarded. Continue aggressive treatment of for bronchospastic airway disease. Once a pulmonary condition is improved, will require evaluation for aortic valve can be done as outpatient. (2) Persistent atrial fibrillation: Status: Acute Assessment and Plan: Persistent/permanent atrial fibrillation has been controlled currently with amiodarone for rate control. Continue warfarin therapy. INR between 2.5 and 3.5. (3) H/O mitral valve replacement with mechanical valve: Status: Acute Assessment and Plan: History of mitral valve replacement. Doing well from that perspective the valve seems to be working well. Continue warfarin therapy. Time Spent With Patient Time: Total time managing care of this patient today ____ minutes. Progress Note: Quality Stroke Does the patient have a stroke diagnosis?: No Procedures Date of Service Date of Service: 07/28/23
[2023-07-28] MEDS: methylPREDNISolone Sod Succ 125 MG/2 ML VIAL IVPUSH (10:40)
[2023-07-28] MEDS: Magnesium Sulfate/H2O 2 GM/50 ML PIGGYBACK IV (10:50)
[2023-07-28 12:15] LABS: Glucose, Whole Blood 243 mg/dL (60-115)
[2023-07-28] MEDS: Furosemide 200 MG in 0.9 % Sodium Chloride 80 ML IVCONT (12:45)
[2023-07-28] MEDS: levalbuterol HCL 1.25 MG/3 ML VIAL.NEB INHALE ×2 (14:01→20:34)
[2023-07-28 16:12] LABS: Glucose, Whole Blood 389 mg/dL (60-115)
[2023-07-28] MEDS: guaiFEN/Codeine SF 200/20/10ML 10 ML LIQUID PO (20:23)
[2023-07-28 20:47] LABS: Glucose, Whole Blood 328 mg/dL (60-115)
[2023-07-29] VITALS (12 sets, daily range): BP systolic 117–190; BP diastolic 63–77; PULSE 85–95; RESP 16–20; TEMP 36.4–37.2; O2SAT 95–100; BMI 25.6
[2023-07-29] MEDS: guaiFEN/Codeine SF 200/20/10ML 10 ML LIQUID PO ×4 (02:24→20:48)
[2023-07-29] MEDS: traZODone HCL 25 MG HALFTAB 12.5 MG PO (02:24)
[2023-07-29] MEDS: Omeprazole 40 MG CAPSULE.DR PO ×2 (05:41→16:58)
[2023-07-29 07:05] LABS: Glucose, Whole Blood 270 mg/dL (60-115)
[2023-07-29 07:20] LABS: INTERNATIONAL NORM RATIO 3.8 (0.9-1.1); Prothrombin Time 45.8 SEC (11.1-13.3)
[2023-07-29] MEDS: levalbuterol HCL 1.25 MG/3 ML VIAL.NEB INHALE (07:46)
[2023-07-29] MEDS: methylPREDNISolone Sod Succ 40 MG/ML VIAL 60 MG IVPUSH ×2 (07:49→20:57)
[2023-07-29] MEDS: Insulin Lispro 100 UNIT/ML 3 ML VIAL SUBCUT ×4 (07:49→20:47)
[2023-07-29] MEDS: Acetaminophen 325 MG TABLET 650 MG PO (07:50)
[2023-07-29] MEDS: Insulin Lispro 100 UNIT/ML 3 ML VIAL 6 UNIT SUBCUT ×3 (07:50→20:48)
[2023-07-29] MEDS: Ferrous Sulfate 324 MG TABLET.DR PO (07:50)
[2023-07-29] MEDS: Insulin Glargine,Hum.rec.anlog 100 UNIT/ML 10 ML VIAL 20 UNIT SUBCUT ×2 (07:50→20:48)
[2023-07-29] MEDS: Spironolactone 25 MG TABLET PO ×2 (07:50→20:47)
[2023-07-29] MEDS: SITagliptin Phosphate 100 MG TABLET PO (07:50)
[2023-07-29] MEDS: Gabapentin 300 MG CAPSULE PO ×2 (07:50→20:46)
[2023-07-29] MEDS: Amiodarone HCL 200 MG TABLET PO (07:50)
[2023-07-29] MEDS: guaiFENesin LA 600 MG TAB.ER.12H PO ×2 (07:51→20:47)
[2023-07-29] MEDS: Isosorbide Dinitrate 10 MG TABLET PO (07:51)
[2023-07-29] MEDS: hydrALAZINE HCl 50 MG TABLET PO (07:51)
[2023-07-29 08:50] LABS: Anion Gap 16 (12-20); Blood Urea Nitrogen 71 mg/dL (9-16); Carbon Dioxide 31 mmol/L (22-29); Chloride 95 mmol/L (96-108); Creatinine Clr Calc Pharmacy 35.9; Estimated Glomerular Filt Rate 37; Glucose Random 267 mg/dL (60-115); Potassium 3.7 mmol/L (3.3-5.1); Sodium 138 mmol/L (135-145)
[2023-07-29 08:57] LABS: B Type Natriuretic Peptide 375 pg/mL (<100)
--- NOTE | 2023-07-29 09:12 | HO.PM.IMPN ---
Subjective Subjective Date of Service: 07/29/23 Interval History: seen and examined this morning follow up for CHF, rhinovirus, asthma exacerbation Interval history: Still with sob/wheezing, but improved overall. Jittery. Continues with cough, difficulty expectorating. No CP. Ambulating without difficulty/dyspnea. Afebrile, no hypoxia. No overnight events Review of Systems Review of Systems: Yes all other systems are reviewed and are negative Constitutional Constitutional: Denies chills and Denies fever(s) Cardiovascular Cardiovascular: Denies chest pain, Denies palpitations and Reports dyspnea on exertion Respiratory Respiratory: Reports cough and Reports dyspnea on exertion Endocrine Endocrine: Denies palpitations Physical Exam Vital Signs: Vital Signs: Last Vital Signs Temp 98.2 F 07/29/23 07:24 Pulse 87 07/29/23 07:47 Resp 16 07/29/23 07:47 BP 147/68 H 07/29/23 07:24 Pulse Ox 98 07/29/23 07:24 O2 Del Method Room Air 07/29/23 07:24 O2 Flow Rate 2 07/22/23 06:19 Oxygen Flow Rate 2 07/22/23 05:50 BMI result Body Mass Index 25.6 Constitutional - Awake and Alert, No apparent distress Eyes - PERRLA, EOMI Cardiovascular - S1S2, RRR, IV/ systolic ejection mrumur, 2+ edema LLE, 1+ edema RLE, +JVD Respiratory - Normal lung expansion, Normal respiratory effort, No respiratory distress, coarse lung sounds bilaterally with diffuse expiratory wheezing. Gastrointestinal - NT / ND; +BS; No rebound or guarding Extremities - no calf tenderness bilaterally, no swelling Skin - Warm/Dry Neurological - Alert & oriented x3 Psychological - Appropriate affect Objective Data Active Medications Acetaminophen (Acetaminophen 325 Mg Tablet) 650 mg PO Q6H PRN PRN Reason: Pain, Mild (Pain Scale 1-3) Last Admin: 07/29/23 07:50 Dose: 650 mg Documented By: SARAH Albuterol/Ipratropium (Albuterol/Iprat 2.5/0.5mg 3 Ml Ampul.Neb) 3 ml INHALE Q4H PRN PRN Reason: Wheezing Last Admin: 07/23/23 08:16 Dose: 3 ml Documented By: KEMI Amiodarone HCl (Amiodarone Hcl 200 Mg Tablet) 200 mg PO DAILY [facility] Last Admin: 07/29/23 07:50 Dose: 200 mg Documented By: SARAH Dextrose (Dextrose 50 % 25 Gm/50 Ml Syringe) 25 gm IVPUSH Q15M PRN; Protocol PRN Reason: per Hypoglycemia Standing Ord. Ferrous Sulfate (Ferrous Sulfate 324 Mg Tablet.) 324 mg PO DAILY [facility] Last Admin: 07/29/23 07:50 Dose: 324 mg Documented By: SARAH Gabapentin (Gabapentin 300 Mg Capsule) 300 mg PO BID [facility] Last Admin: 07/29/23 07:50 Dose: 300 mg Documented By: SARAH Glucose (Glucose Gel 15 Gm Gel..Gram.) 15 gm PO Q15M PRN; Protocol PRN Reason: per Hypoglycemia Standing Ord. Guaifenesin (Guaifenesin La 600 Mg Tab.Er.12h) 600 mg PO BID [facility] Last Admin: 07/29/23 07:51 Dose: 600 mg Documented By: SARAH Guaifenesin/Codeine Phosphate (Guaifen/Codeine Sf 200/20/10ml 10 Ml Liquid) 10 ml PO Q6H PRN PRN Reason: cough Last Admin: 07/29/23 07:53 Dose: 10 ml Documented By: SARAH Hydralazine HCl (Hydralazine Hcl 50 Mg Tablet) 100 mg PO BID [facility]; Protocol Furosemide 200 mg/ Sodium (Chloride) 100 mls @ 2.5 mls/hr IVCONT .Q24H [facility] Last Infusion: 07/28/23 12:50 Dose: 5 mg/hr, 2.5 mls/hr Documented By: SARAH Insulin Glargine (Insulin Glargine,Hum.Rec.Anlog 100 Unit/Ml 10 Ml Vial) 20 unit SUBCUT BID [facility] Last Admin: 07/29/23 07:50 Dose: 20 unit Documented By: SARAH Insulin Human Lispro (Insulin Lispro 100 Unit/Ml 3 Ml Vial) 0 unit SUBCUT QIDACHS [facility]; Protocol Last Admin: 07/29/23 07:49 Dose: 6 unit Documented By: SARAH Insulin Human Lispro (Insulin Lispro 100 Unit/Ml 3 Ml Vial) 6 unit SUBCUT QIDACHS [facility] Last Admin: 07/29/23 07:50 Dose: 6 unit Documented By: SARAH Isosorbide Dinitrate (Isosorbide Dinitrate 20 Mg Tablet) 20 mg PO 0800,1300 [facility]; Protocol Levalbuterol HCl (Levalbuterol Hcl 1.25 Mg/3 Ml Vial.Giuliano) 1.25 mg INHALE RTID [facility] Last Admin: 07/29/23 07:46 Dose: 1.25 mg Documented By: MACIEL Melatonin (Melatonin 3 Mg Tablet) 6 mg PO BEDTIME PRN PRN Reason: Insomnia Methylprednisolone Sodium Succinate (Methylprednisolone Sod Succ 40 Mg/Ml Vial) 60 mg IVPUSH Q12H [facility] Last Admin: 07/29/23 07:49 Dose: 60 mg Documented By: SARAH Omeprazole (Omeprazole 40 Mg Capsule.) 40 mg PO BID@0630,1630 [facility] Last Admin: 07/29/23 05:41 Dose: 40 mg Documented By: ERNIE Ondansetron HCl (Ondansetron Hcl 4 Mg/2 Ml Vial) 4 mg IVPUSH Q8H PRN PRN Reason: Nausea and Vomiting Senna (Sennosides 8.6 Mg Tablet) 17.2 mg PO DAILY PRN PRN Reason: constipation Last Admin: 07/27/23 06:35 Dose: 17.2 mg Documented By: MARIUSZ Sitagliptin Phosphate (Sitagliptin Phosphate 100 Mg Tablet) 100 mg PO DAILY [facility] Last Admin: 07/29/23 07:50 Dose: 100 mg Documented By: SARAH Sodium Chloride (0.9 % Sodium Chloride Flush 3 Ml Syringe) 3 ml IVFLUSH QSHIFT [facility] Last Admin: 07/29/23 07:51 Dose: 3 ml Documented By: SARAH Spironolactone (Spironolactone 25 Mg Tablet) 25 mg PO BID [facility]; Protocol Last Admin: 07/29/23 07:50 Dose: 25 mg Documented By: SARAH Trazodone HCl (Trazodone Hcl 25 Mg Halftab) 12.5 mg PO BEDTIME PRN PRN Reason: Insomnia Last Admin: 07/29/23 02:24 Dose: 12.5 mg Documented By: ERNIE Warfarin Sodium (Warfarin Sodium 1 Mg Tablet) 1 mg PO Q48H [facility] Last Admin: 07/24/23 18:47 Dose: 1 mg Documented By: LATRICE Warfarin Sodium (Warfarin Sodium 2.5 Mg Tablet) 2.5 mg PO Q48H [facility] Last Admin: 07/25/23 17:42 Dose: 2.5 mg Documented By: EROS Labs 07/28/23 06:59 07/29/23 08:12 Labs: Laboratory Results - last 24 hr 07/28/23 07/28/23 07/28/23 11:35 16:04 20:21 PT INR Anion Gap Estim Creat Clear Calc Estimated GFR POC Glucose 243 H 389 H* 328 H Random Glucose Calcium B-Natriuretic Peptide 07/29/23 07/29/23 07/29/23 06:40 07:02 08:12 PT 45.8 H INR 3.8 H Anion Gap 16 Estim Creat Clear Calc 35.9 Estimated GFR 37 POC Glucose 270 H Random Glucose 267 H Calcium 9.0 B-Natriuretic Peptide 375 H Microbiology Microbiology Results: Microbiology 07/26/23 22:45 Gram Stain - Final Sputum - Expectorated Sputum Culture - Final Assessment and Plan (1) Rhinovirus: Status: Acute (2) Asthma exacerbation: Status: Acute (3) CHF exacerbation: Status: Acute Plan This is a 63-year-old woman admitted with acute congestive heart failure exacerbation and asthma exacerbation found to have rhinovirus Asthma exacerbation due to rhinovirus continue Solu-Medrol, given extra dose this am by pulmonology as well as IV magnesium Still with coarse lung sounds and diffuse expiratory wheezing. Change duonebs to scheduled, monitor HR. Xopenex prn symptomatic support for cough not currently requiring supplemental oxygen RPP positive for rhinovirus seen by pulmonary >Aerobika valve for CPT, sputum cx from 07/26 showing mixed respiratory adry, repeat sputum culture ordered 07/28; pt requests doxy to be stopped Heart failure with reduced ejection fraction echocardiogram 25-30%, severe aortic stenosis with valve area of 0.7 cm, mechanical mitral valve in place, severe TR Cardiology following continue Lasix drip 5 mg an hour for now hydralazine increased to 100 mg twice daily for afterload reduction, Isordil to 20 mg twice daily for preload reduction continue aldactone 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 Strict intake and output -4322ml during admission Persistent atrial fibrillation HR controlled s/p digoxin 0.25 mg IV q.6 x2 continue amiodarone Warfarin on hold, INR supratherapeutic at 3.8, slowly improving, goal 2.5-3.5 ([facility] mirtral valve) Consider lovenox if INR becomes subtherapeutic Check PT INR daily Diabetes mellitus type 2 with hyperglycemia - glucose levels improving due to steroids Hba1c 7.1 increase lantus to 20 units BID Sliding scale, mealtime insulin 6 units, ada diet continue januvia Iron def anemia heme + but no overt bleeding As per Cardiology, transfuse for hematocrit greater than 30 s/p 1 unit of PRBCs low iron, continue supplement H/H stable needs to remain on AC due to mechanical mitral valve Back pain msk warm compress as needed tylenol prn Peripheral neuropathy, unspecified continue neurontin DVT prophylaxis with warfarin Attending Dr. Reveles Full code dispo: pt rec home with services when medically ready continued hospital stay for treatment of acute congestive heart failure requiring IV diuretics, IV steroids, specialty consultation and close monitoring of respiratory status Quality Stroke Does the patient have a stroke diagnosis?: No VTE Prior VTE?: No VTE Risk Level:: Medical - moderate - high VTE Device Contraindication: Treatment Not Indicated VTE Drug Contraindication: N/A - Med Ordered
--- NOTE | 2023-07-29 09:46 | P.PNCA_ITS ---
Subjective Subjective Date of Service: 07/29/23 Principal diagnosis: CHF, atrial fibrillation Interval history: Patient complains of heavy had and jitteriness and lack of sleep. Her steroids were increased. She still has wheezing but this is improved. She says she just about started urinating now since started on Lasix drip yesterday. I still remain short of breath and has leg edema. Review of Systems Constitutional: Reports difficulty sleeping, Reports headache(s) and Reports weakness Eyes: Reports no additional eye complaints Reports headache(s) Cardiovascular: Denies chest pain, Reports leg edema, Denies lightheadedness, Denies palpitations and Reports dyspnea on exertion Respiratory: Reports chest congestion, Reports cough, Reports dyspnea on exertion and Reports wheezing Gastrointestinal: Reports no additional gastrointestinal complaints Reports headache(s) and Reports weakness Endocrine: Denies palpitations Allergic/Immunologic: Reports wheezing Physical Exam Vital Signs: Last Vital Signs Temp 98.2 F 07/29/23 07:24 Pulse 87 07/29/23 07:47 Resp 16 07/29/23 07:47 BP 147/68 H 07/29/23 07:24 Pulse Ox 98 07/29/23 07:24 O2 Del Method Room Air 07/29/23 07:24 O2 Flow Rate 2 07/22/23 06:19 Oxygen Flow Rate 2 07/22/23 05:50 BMI result Body Mass Index 25.6 Const General: cooperative and in distress mild and respiratory Orientation/consciousness: patient oriented x3 Neck Neck: Yes trachea midline, Yes supple and Yes JVD Resp Effort & Inspection: normal respiratory effort Auscultation: wheezes (Seems to have improved) scattered wheezes Cardio Jugular venous distension: JVD Rhythm: abnormal rhythm irregularly irregular Heart sounds: S2 normal heart sound present, no click, no gallops, Murmur heart sound present systolic late and Other heart sounds present (Mccone opening and closing click of mitral valve) GI Auscultation: normal bowel sounds Skin General skin exam: no rashes or lesions noted Neuro General: patient oriented x3 Extrem General: No clubbing, No cyanosis and Yes edema Objective Labs and Meds 07/28/23 06:59 07/29/23 08:12 Lab results: Laboratory Results - last 24 hr 07/28/23 07/28/23 07/28/23 11:35 16:04 20:21 PT INR Sodium Potassium Chloride Carbon Dioxide Anion Gap BUN Creatinine Estim Creat Clear Calc Estimated GFR POC Glucose 243 H 389 H* 328 H Random Glucose Calcium B-Natriuretic Peptide 07/29/23 07/29/23 07/29/23 06:40 07:02 08:12 PT 45.8 H INR 3.8 H Sodium 138 Potassium 3.7 Chloride 95 L Carbon Dioxide 31 H Anion Gap 16 BUN 71 H Creatinine 1.42 H Estim Creat Clear Calc 35.9 Estimated GFR 37 POC Glucose 270 H Random Glucose 267 H Calcium 9.0 B-Natriuretic Peptide 375 H Imaging Radiologist's impression: Impressions Chest X-Ray 07/28/23 10:10 IMPRESSION: Bronchial wall thickening may be infectious and/or inflammatory in etiology. Progress Note: A&P Assessment and plan (1) CHF exacerbation: Status: Acute Assessment and Plan: Persistent symptoms and for fluid overload. Poor response to oral diuretics. Continue IV diuretics with Lasix. Continue monitor intake and outputs strictly. Continue monitor renal function as well as BNP tomorrow. Replace electrolytes as needed. Currently on Aldactone therapy, continue the same. Can not be on renin angiotensin system in inhibitor due to prior angioedema. Continue maximize hydralazine and Isordil. Continue monitor blood pressure closely. Continue to aggressively treat her pulmonary issues. Her atrial fibrillation rate is adequately control at this time with amiodarone. (2) Persistent atrial fibrillation: Status: Acute Assessment and Plan: Continue rate control, given chronic atrial fibrillation. Currently on full oral anticoagulation warfarin. Target INR between 2.5 and 3.5. Will follow with you Time Spent With Patient Time: Total time managing care of this patient today ____ minutes. Progress Note: Quality Stroke Does the patient have a stroke diagnosis?: No Procedures Date of Service Date of Service: 07/29/23
--- NOTE | 2023-07-29 11:02 | P.PNPL_ITS ---
Subjective Subjective Date of Service: 07/29/23 Principal diagnosis: CHF, atrial fibrillation Interval history: Seen and examined. Wheezing is better, but still congested. Sputum cx was negative. She is on coumadin and also has alot of allergies. She did not improve on doxycycline. Will start Azithromycin PO. CPT with the peterobika. Objective Data Labs 07/28/23 06:59 07/29/23 08:12 Labs: Laboratory Results - last 24 hr 07/28/23 07/28/23 07/28/23 11:35 16:04 20:21 PT INR Sodium Potassium Chloride Carbon Dioxide Anion Gap BUN Creatinine Estim Creat Clear Calc Estimated GFR POC Glucose 243 H 389 H* 328 H Random Glucose Calcium B-Natriuretic Peptide 07/29/23 07/29/23 07/29/23 06:40 07:02 08:12 PT 45.8 H INR 3.8 H Sodium 138 Potassium 3.7 Chloride 95 L Carbon Dioxide 31 H Anion Gap 16 BUN 71 H Creatinine 1.42 H Estim Creat Clear Calc 35.9 Estimated GFR 37 POC Glucose 270 H Random Glucose 267 H Calcium 9.0 B-Natriuretic Peptide 375 H Microbiology Microbiology Results: Microbiology 07/26/23 22:45 Sputum - Expectorated Gram Stain - Final 07/26/23 22:45 Sputum - Expectorated Sputum Culture - Final 07/22/23 08:17 Blood - Venous Blood Culture - Final No growth after 5 days. 07/22/23 08:17 Blood - Venous Blood Culture - Final No growth after 5 days. Review of Systems Constitutional: Reports no additional constitutional complaints Cardiovascular: Reports leg edema, Denies lightheadedness, Denies Loss of Consciousness and Reports dyspnea on exertion Respiratory: Reports change in phlegm color, Reports chest congestion, Reports cough, Denies hemoptysis, Reports dyspnea on exertion and Reports wheezing Gastrointestinal: Reports no additional gastrointestinal complaints Genitourinary: Reports no additional female genitourinary complaints Reports system reviewed and no additional complaints, except as documented Allergic/Immunologic: Reports wheezing Physical Exam 2 Vital Signs: Vital Signs: Last Vital Signs Temp 98.2 F 07/29/23 07:24 Pulse 87 07/29/23 07:47 Resp 16 07/29/23 07:47 BP 147/68 H 07/29/23 07:24 Pulse Ox 98 07/29/23 07:24 O2 Del Method Room Air 07/29/23 07:24 O2 Flow Rate 2 07/22/23 06:19 Oxygen Flow Rate 2 07/22/23 05:50 BMI result Body Mass Index 25.6 Const: General: cooperative and in distress moderate and respiratory N utritional Appearance: average body habitus Orientation/consciousness: p atient oriented x3 Neck: Neck: Yes trachea midline, Yes supple and Yes JVD Chest: Chest palpation & inspection: normal inspection of the chest Resp: Effort & Inspection: prolonged expiratory phase Auscultation: r honchi, wheezes and diminished lung sounds Cardio: Rate: tachycardic Heart sounds: S1 normal heart sound present, S2 normal heart sound present and Murmur heart sound present systolic GI: Auscultation: normal bowel sounds Skin: General skin exam: no rashes or lesions noted and ecchymosis Neuro: General: patient oriented x3 and no focal motor deficits Extrem: General: No clubbing, No cyanosis and Yes edema Procedures Date of Service Date of Service: 07/29/23 Assessment and Plan Assessment and plan (1) Asthma exacerbation: Status: Acute (2) Viral syndrome: Status: Acute (3) Bronchitis: Status: Acute (4) Cardiomyopathy: Status: Acute (5) Secondary pulmonary arterial hypertension: Status: Acute Plan continue solumedrol 2gm magnesium sulfate start Azithromycin, monitor INR repeat CXR-bronchitis Aerobika flutter valve for CPT sputum cx NGTD continue nebulizer therapy diuresis as tolerated Time Spent With Patient Time: Total time managing care of this patient today ____ minutes. Progress Note: Quality Stroke Does the patient have a stroke diagnosis?: No
[2023-07-29] MEDS: Isosorbide Dinitrate 20 MG TABLET PO (11:14)
[2023-07-29 11:15] LABS: Glucose, Whole Blood 177 mg/dL (60-115)
[2023-07-29 12:56] LABS: Magnesium 2.4 mg/dL (1.6-2.6)
[2023-07-29] MEDS: Furosemide 200 MG in 0.9 % Sodium Chloride 80 ML IVCONT (14:04)
[2023-07-29] MEDS: Albuterol/Iprat 2.5/0.5MG 3 ML AMPUL.NEB INHALE ×3 (15:05→23:35)
[2023-07-29 16:51] LABS: Glucose, Whole Blood 203 mg/dL (60-115)
[2023-07-29 20:06] LABS: Glucose, Whole Blood 207 mg/dL (60-115)
[2023-07-29] MEDS: hydrALAZINE HCl 50 MG TABLET 100 MG PO (20:47)
[2023-07-30] VITALS (10 sets, daily range): BP systolic 137–168; BP diastolic 63–78; PULSE 83–98; RESP 16–20; TEMP 35.8–37.2; O2SAT 95–98; BMI 25.3
[2023-07-30] MEDS: Albuterol/Iprat 2.5/0.5MG 3 ML AMPUL.NEB INHALE ×5 (04:04→20:01)
[2023-07-30] MEDS: Omeprazole 40 MG CAPSULE.DR PO ×2 (05:55→17:14)
[2023-07-30] MEDS: guaiFEN/Codeine SF 200/20/10ML 10 ML LIQUID PO ×3 (05:55→18:13)
[2023-07-30 06:57] LABS: INTERNATIONAL NORM RATIO 3.2 (0.9-1.1); Prothrombin Time 38.4 SEC (11.1-13.3)
[2023-07-30 07:05] LABS: Glucose, Whole Blood 391 mg/dL (60-115)
[2023-07-30 07:18] LABS: Anion Gap 15 (12-20); Blood Urea Nitrogen 80 mg/dL (9-16); Calcium 8.5 mg/dL (8.4-10.2); Carbon Dioxide 29 mmol/L (22-29); Chloride 94 mmol/L (96-108); Creatinine Clr Calc Pharmacy 30.6; Estimated Glomerular Filt Rate 31; Glucose Random 403 mg/dL (60-115); Potassium 4.1 mmol/L (3.3-5.1); Sodium 134 mmol/L (135-145)
[2023-07-30] MEDS: methylPREDNISolone Sod Succ 40 MG/ML VIAL 60 MG IVPUSH (07:56)
[2023-07-30] MEDS: Insulin Lispro 100 UNIT/ML 3 ML VIAL SUBCUT ×4 (07:56→21:34)
[2023-07-30] MEDS: Insulin Lispro 100 UNIT/ML 3 ML VIAL 6 UNIT SUBCUT (07:57)
[2023-07-30] MEDS: Insulin Glargine,Hum.rec.anlog 100 UNIT/ML 10 ML VIAL 20 UNIT SUBCUT ×2 (07:57→21:35)
[2023-07-30] MEDS: hydrALAZINE HCl 50 MG TABLET 100 MG PO ×2 (07:57→21:36)
[2023-07-30] MEDS: Isosorbide Dinitrate 20 MG TABLET PO ×2 (07:58→12:05)
[2023-07-30] MEDS: SITagliptin Phosphate 100 MG TABLET PO (07:58)
[2023-07-30] MEDS: Amiodarone HCL 200 MG TABLET PO (07:58)
[2023-07-30] MEDS: Gabapentin 300 MG CAPSULE PO ×2 (07:58→21:36)
[2023-07-30] MEDS: Ferrous Sulfate 324 MG TABLET.DR PO (07:58)
[2023-07-30] MEDS: Spironolactone 25 MG TABLET PO ×2 (07:58→21:36)
[2023-07-30] MEDS: guaiFENesin LA 600 MG TAB.ER.12H PO ×2 (07:58→21:36)
--- NOTE | 2023-07-30 10:39 | HO.PM.IMPN ---
Subjective Subjective Date of Service: 07/30/23 Interval History: follow up for CHF, rhinovirus, asthma exacerbation Interval history: no resp distress, still with some swelling in legs Physical Exam Vital Signs: Vital Signs: Last Vital Signs Temp 98.1 F 07/30/23 07:16 Pulse 85 07/30/23 07:42 Resp 18 07/30/23 07:42 BP 168/78 H 07/30/23 07:16 Pulse Ox 95 07/30/23 07:16 O2 Del Method Room Air 07/30/23 07:16 O2 Flow Rate 2 07/22/23 06:19 Oxygen Flow Rate 2 07/22/23 05:50 BMI result Body Mass Index 25.3 Objective Data Active Medications Acetaminophen (Acetaminophen 325 Mg Tablet) 650 mg PO Q6H PRN PRN Reason: Pain, Mild (Pain Scale 1-3) Last Admin: 07/29/23 07:50 Dose: 650 mg Documented By: PRINCE-RIVLA Albuterol/Ipratropium (Albuterol/Iprat 2.5/0.5mg 3 Ml Ampul.Neb) 3 ml INHALE RQ4H [facility] Last Admin: 07/30/23 07:42 Dose: 3 ml Documented By: MACIEL Amiodarone HCl (Amiodarone Hcl 200 Mg Tablet) 200 mg PO DAILY [facility] Last Admin: 07/30/23 07:58 Dose: 200 mg Documented By: JASON Dextrose (Dextrose 50 % 25 Gm/50 Ml Syringe) 25 gm IVPUSH Q15M PRN; Protocol PRN Reason: per Hypoglycemia Standing Ord. Ferrous Sulfate (Ferrous Sulfate 324 Mg John.) 324 mg PO DAILY [facility] Last Admin: 07/30/23 07:58 Dose: 324 mg Documented By: JASON Gabapentin (Gabapentin 300 Mg Capsule) 300 mg PO BID [facility] Last Admin: 07/30/23 07:58 Dose: 300 mg Documented By: JASON Glucose (Glucose Gel 15 Gm Gel..Gram.) 15 gm PO Q15M PRN; Protocol PRN Reason: per Hypoglycemia Standing Ord. Guaifenesin (Guaifenesin La 600 Mg Tab.Er.12h) 600 mg PO BID [facility] Last Admin: 07/30/23 07:58 Dose: 600 mg Documented By: AJSON Guaifenesin/Codeine Phosphate (Guaifen/Codeine Sf 200/20/10ml 10 Ml Liquid) 10 ml PO Q6H [facility] Last Admin: 07/30/23 05:55 Dose: 10 ml Documented By: UZMA Hydralazine HCl (Hydralazine Hcl 50 Mg Tablet) 100 mg PO BID [facility]; Protocol Last Admin: 07/30/23 07:57 Dose: 100 mg Documented By: GINEMA Furosemide 200 mg/ Sodium (Chloride) 100 mls @ 2.5 mls/hr IVCONT .Q24H [facility] Last Admin: 07/29/23 14:04 Dose: 5 mg/hr, 2.5 mls/hr Documented By: N-RIVLA Insulin Glargine (Insulin Glargine,Hum.Rec.Anlog 100 Unit/Ml 10 Ml Vial) 20 unit SUBCUT BID [facility] Last Admin: 07/30/23 07:57 Dose: 20 unit Documented By: GINEMA Insulin Human Lispro (Insulin Lispro 100 Unit/Ml 3 Ml Vial) 0 unit SUBCUT QIDACHS [facility]; Protocol Last Admin: 07/30/23 07:56 Dose: 10 unit Documented By: JASON Insulin Human Lispro (Insulin Lispro 100 Unit/Ml 3 Ml Vial) 6 unit SUBCUT QIDACHS [facility] Last Admin: 07/30/23 07:57 Dose: 6 unit Documented By: JASON Isosorbide Dinitrate (Isosorbide Dinitrate 20 Mg Tablet) 20 mg PO 0800,1300 [facility]; Protocol Last Admin: 07/30/23 07:58 Dose: 20 mg Documented By: JASON Levalbuterol HCl (Levalbuterol Hcl 1.25 Mg/3 Ml Vial.Giuliano) 1.25 mg INHALE RTID PRN PRN Reason: sob/wheezing Melatonin (Melatonin 3 Mg Tablet) 6 mg PO BEDTIME PRN PRN Reason: Insomnia Methylprednisolone Sodium Succinate (Methylprednisolone Sod Succ 40 Mg/Ml Vial) 60 mg IVPUSH Q12H [facility] Last Admin: 07/30/23 07:56 Dose: 60 mg Documented By: JASON Omeprazole (Omeprazole 40 Mg Capsule.) 40 mg PO BID@0630,1630 [facility] Last Admin: 07/30/23 05:55 Dose: 40 mg Documented By: UZMA Ondansetron HCl (Ondansetron Hcl 4 Mg/2 Ml Vial) 4 mg IVPUSH Q8H PRN PRN Reason: Nausea and Vomiting Senna (Sennosides 8.6 Mg Tablet) 17.2 mg PO DAILY PRN PRN Reason: constipation Last Admin: 07/27/23 06:35 Dose: 17.2 mg Documented By: MARIUSZ Sitagliptin Phosphate (Sitagliptin Phosphate 100 Mg Tablet) 100 mg PO DAILY [facility] Last Admin: 07/30/23 07:58 Dose: 100 mg Documented By: GINEMA Sodium Chloride (0.9 % Sodium Chloride Flush 3 Ml Syringe) 3 ml IVFLUSH QSHIFT [facility] Last Admin: 07/30/23 07:57 Dose: 3 ml Documented By: JASON Spironolactone (Spironolactone 25 Mg Tablet) 25 mg PO BID [facility]; Protocol Last Admin: 07/30/23 07:58 Dose: 25 mg Documented By: JASON Trazodone HCl (Trazodone Hcl 25 Mg Halftab) 12.5 mg PO BEDTIME PRN PRN Reason: Insomnia Last Admin: 07/29/23 02:24 Dose: 12.5 mg Documented By: ERNIE Warfarin Sodium (Warfarin Sodium 1 Mg Tablet) 1 mg PO Q48H [facility] Last Admin: 07/24/23 18:47 Dose: 1 mg Documented By: LATRICE Warfarin Sodium (Warfarin Sodium 2.5 Mg Tablet) 2.5 mg PO Q48H [facility] Last Admin: 07/25/23 17:42 Dose: 2.5 mg Documented By: EROS Labs 07/28/23 06:59 07/30/23 06:11 Labs: Laboratory Results - last 24 hr 07/29/23 07/29/23 07/29/23 08:12 11:09 16:32 PT INR Anion Gap Estim Creat Clear Calc Estimated GFR POC Glucose 177 H 203 H Random Glucose Calcium Magnesium 2.4 07/29/23 07/30/23 07/30/23 20:02 06:11 06:58 PT 38.4 H INR 3.2 H Anion Gap 15 Estim Creat Clear Calc 30.6 Estimated GFR 31 POC Glucose 207 H 391 H* Random Glucose 403 H* Calcium 8.5 Magnesium Microbiology Microbiology Results: Microbiology 07/26/23 22:45 Gram Stain - Final Sputum - Expectorated Sputum Culture - Final Assessment and Plan (1) Rhinovirus: Status: Acute (2) Asthma exacerbation: Status: Acute (3) CHF exacerbation: Status: Acute Plan This is a 63-year-old woman admitted with acute congestive heart failure exacerbation and asthma exacerbation found to have rhinovirus Asthma exacerbation due to rhinovirus , improved, no hypoxia IV steroid x 7 days now, change to PO Prednisone for total of 10 days continue bronchodilators by Neb pulmonary >Aerobika valve for CPT, sputum cx from 07/26 showing mixed respiratory adry, repeat sputum culture ordered 07/28; pt requests doxy to be stopped Heart failure with reduced ejection fraction, EF 25-30%, severe aortic stenosis, severe TR continue Lasix drip 5 mg an hour for now, neg 4 L continue hydralazine 100 mg twice daily for afterload reduction, Isordil to 20 mg twice daily for preload reduction, aldcatone Monitor weight, salt, water intake and BMP Persistent atrial fibrillation, rate controlled s/p digoxin 0.25 mg IV q.6 x2 continue amiodarone Warfarin on hold, INR supratherapeutic at 3.2, restart coumadin today with goal of INR goal 2.5-3.5 ([facility] mirtral valve) Daily INR Diabetes mellitus type 2 with hyperglycemia - d/t steroid reduce steroid Hba1c 7.1 increase lantus to 20 units BID, januvia Sliding scale, mealtime insulin 6 units, ada diet Iron def anemia heme + but no overt bleeding As per Cardiology, transfuse for hematocrit greater than 30 s/p 1 unit of PRBCs low iron, continue supplement H/H stable needs to remain on AC due to mechanical mitral valve TORRI on CKD 3b, Scr trending up Back pain msk warm compress as needed tylenol prn Peripheral neuropathy, unspecified continue neurontin DVT prophylaxis with warfarin Full code dispo: pt rec home with services when medically ready continued hospital stay for treatment of acute congestive heart failure requiring IV diuretics, IV steroids, specialty consultation and close monitoring of respiratory status Quality Stroke Does the patient have a stroke diagnosis?: No VTE Prior VTE?: No VTE Risk Level:: Medical - moderate - high VTE Device Contraindication: Treatment Not Indicated VTE Drug Contraindication: N/A - Med Ordered
[2023-07-30 10:54] LABS: Glucose, Whole Blood 205 mg/dL (60-115)
--- NOTE | 2023-07-30 11:36 | PM.PNCARD ---
Subjective Subjective Date of Service: 07/30/23 Principal diagnosis: CHF, atrial fibrillation Interval history: Patient says she has some sore throat but her breathing is better. Leg edema is improved. Overnight negative balance of only 400 cc. She denies any other cardiac symptoms. Heart rate is adequately controlled. Review of Systems Constitutional: Reports weakness Reports dry mouth and Reports hoarseness Cardiovascular: Reports no additional cardiovascular complaints Respiratory: Reports cough and Reports wheezing Gastrointestinal: Reports no additional gastrointestinal complaints Reports weakness Allergic/Immunologic: Reports wheezing Physical Exam Vital Signs: Last Vital Signs Temp 98.9 F 07/30/23 11:04 Pulse 90 07/30/23 11:04 Resp 20 07/30/23 11:04 BP 156/70 H 07/30/23 11:04 Pulse Ox 96 07/30/23 11:04 O2 Del Method Room Air 07/30/23 11:04 O2 Flow Rate 2 07/22/23 06:19 Oxygen Flow Rate 2 07/22/23 05:50 BMI result Body Mass Index 25.3 Const General: cooperative and in distress mild and respiratory Orientation/consciousness: patient oriented x3 Neck Neck: Yes trachea midline, Yes supple and Yes JVD Resp Effort & Inspection: normal respiratory effort Auscultation: wheezes (Seems to have improved) scattered wheezes Cardio Jugular venous distension: JVD Rhythm: abnormal rhythm irregularly irregular Heart sounds: S2 normal heart sound present, no click, no gallops, Murmur heart sound present systolic late and Other heart sounds present ([place] opening and closing click of mitral valve) GI Auscultation: normal bowel sounds Skin General skin exam: no rashes or lesions noted Neuro General: patient oriented x3 Extrem General: No clubbing, No cyanosis and Yes edema Objective Labs and Meds 07/28/23 06:59 07/30/23 06:11 Lab results: Laboratory Results - last 24 hr 07/29/23 07/29/23 07/29/23 08:12 16:32 20:02 PT INR Sodium Potassium Chloride Carbon Dioxide Anion Gap BUN Creatinine Estim Creat Clear Calc Estimated GFR POC Glucose 203 H 207 H Random Glucose Calcium Magnesium 2.4 07/30/23 07/30/23 07/30/23 06:11 06:58 10:50 PT 38.4 H INR 3.2 H Sodium 134 L Potassium 4.1 Chloride 94 L Carbon Dioxide 29 Anion Gap 15 BUN 80 H Creatinine 1.66 H Estim Creat Clear Calc 30.6 Estimated GFR 31 POC Glucose 391 H* 205 H Random Glucose 403 H* Calcium 8.5 Magnesium Progress Note: A&P Assessment and plan (1) CHF exacerbation: Status: Acute Assessment and Plan: CHF exacerbation which seems to have improved BNP has improved significantly. Creatinine is rising. I think we have probably on the trend of over-diuresis. At this point time will switch her to p.o. Bumex 2 mg daily. Continue afterload reduction with hydralazine and preload reduction with Isordil. Continue rate control. Overall prognosis guarded. Continue treat her underlying bronchospastic airway disease aggressively. At this point in time will continue to manage conservatively. Eventually once her pulmonary situation improved will require evaluation for her aortic stenosis. Outpatient follow-up will be scheduled. (2) Persistent atrial fibrillation: Status: Acute Assessment and Plan: Persistent atrial fibrillation, currently rate controlled. Continue rate control strategy for now with amiodarone. Will follow-up as outpatient and continue warfarin therapy with target INR between 2.5 and 3.5 (3) H/O mitral valve replacement with mechanical valve: Status: Acute Assessment and Plan: Continue warfarin therapy as above. Will sign of the case and follow as outpatient. Time Spent With Patient Time: Total time managing care of this patient today ____ minutes. Progress Note: Quality Stroke Does the patient have a stroke diagnosis?: No Procedures Date of Service Date of Service: 07/30/23
[2023-07-30 11:45] LABS: B Type Natriuretic Peptide 357 pg/mL (<100)
[2023-07-30] MEDS: Insulin Lispro 100 UNIT/ML 3 ML VIAL 8 UNIT SUBCUT ×3 (12:06→21:35)
[2023-07-30] MEDS: Furosemide 200 MG in 0.9 % Sodium Chloride 80 ML IVCONT (13:59)
[2023-07-30 17:11] LABS: Glucose, Whole Blood 171 mg/dL (60-115)
[2023-07-30] MEDS: Warfarin Sodium 1 MG TABLET PO (18:13)
[2023-07-30] MEDS: Sennosides 8.6 MG TABLET 17.2 MG PO (18:22)
[2023-07-30 20:42] LABS: Glucose, Whole Blood 234 mg/dL (60-115)
[2023-07-30] MEDS: LORazepam 0.5 MG TABLET 0.25 MG PO (22:13)
[2023-07-31] VITALS (12 sets, daily range): BP systolic 116–158; BP diastolic 51–67; PULSE 86–101; RESP 16–20; TEMP 36.4–36.9; O2SAT 95–99; BMI 26.4
[2023-07-31] MEDS: guaiFEN/Codeine SF 200/20/10ML 10 ML LIQUID PO ×4 (00:33→17:23)
[2023-07-31] MEDS: Albuterol/Iprat 2.5/0.5MG 3 ML AMPUL.NEB INHALE ×6 (03:24→20:00)
[2023-07-31 06:27] LABS: INTERNATIONAL NORM RATIO 2.8 (0.9-1.1); Prothrombin Time 34.3 SEC (11.1-13.3)
[2023-07-31] MEDS: Omeprazole 40 MG CAPSULE.DR PO ×2 (06:33→16:31)
[2023-07-31 08:02] LABS: Glucose, Whole Blood 193 mg/dL (60-115)
[2023-07-31] MEDS: SITagliptin Phosphate 100 MG TABLET PO (08:05)
[2023-07-31] MEDS: Gabapentin 300 MG CAPSULE PO ×2 (08:05→21:11)
[2023-07-31] MEDS: guaiFENesin LA 600 MG TAB.ER.12H PO ×2 (08:05→21:10)
[2023-07-31] MEDS: hydrALAZINE HCl 50 MG TABLET 100 MG PO ×2 (08:05→21:10)
[2023-07-31] MEDS: Spironolactone 25 MG TABLET PO ×2 (08:05→21:11)
[2023-07-31] MEDS: Isosorbide Dinitrate 20 MG TABLET PO ×2 (08:06→12:54)
[2023-07-31] MEDS: Bumetanide 1 MG TABLET 2 MG PO (08:06)
[2023-07-31] MEDS: Ferrous Sulfate 324 MG TABLET.DR PO (08:06)
[2023-07-31] MEDS: Amiodarone HCL 200 MG TABLET PO (08:06)
[2023-07-31] MEDS: predniSONE 10 MG TABLET PO (08:06)
[2023-07-31] MEDS: Insulin Glargine,Hum.rec.anlog 100 UNIT/ML 10 ML VIAL 20 UNIT SUBCUT ×2 (08:07→21:15)
[2023-07-31] MEDS: Insulin Lispro 100 UNIT/ML 3 ML VIAL 8 UNIT SUBCUT ×3 (08:15→21:15)
[2023-07-31] MEDS: Insulin Lispro 100 UNIT/ML 3 ML VIAL SUBCUT ×3 (08:16→21:15)
--- NOTE | 2023-07-31 09:25 | MHC.CM.PN ---
Per [employer], Lasix Drip has just been changed to PO Bumex and Patient will need a few more days r/t her respiratory status. Home with new VNA is the goal and CM will continue to follow.
--- NOTE | 2023-07-31 09:49 | P.PNIM_ITS ---
Subjective Subjective Date of Service: 07/31/23 Interval History: follow up for CHF, rhinovirus, asthma exacerbation Interval history: no resp distress, still with some swelling in legs Physical Exam 2 Vital Signs: Vital Signs: Last Vital Signs Temp 98.1 F 07/31/23 07:49 Pulse 94 07/31/23 07:49 Resp 16 07/31/23 07:49 BP 158/52 H 07/31/23 07:49 Pulse Ox 99 07/31/23 07:49 O2 Del Method Room Air 07/31/23 07:49 O2 Flow Rate 2 07/22/23 06:19 Oxygen Flow Rate 2 07/22/23 05:50 BMI result Body Mass Index 26.4 Appearing in no acute distress lung sounds are clear to auscultation heart regular rate rhythm, clear S1, S2 positive bowel sounds, abdomen is soft, nontender neuro patient is alert x3, no focal deficits Objective Data Active Medications Acetaminophen (Acetaminophen 325 Mg Tablet) 650 mg PO Q6H PRN PRN Reason: Pain, Mild (Pain Scale 1-3) Last Admin: 07/29/23 07:50 Dose: 650 mg Documented By: SARAH Albuterol/Ipratropium (Albuterol/Iprat 2.5/0.5mg 3 Ml Ampul.Neb) 3 ml INHALE RQ4H [facility] Last Admin: 07/31/23 07:38 Dose: 3 ml Documented By: JENNY Amiodarone HCl (Amiodarone Hcl 200 Mg Tablet) 200 mg PO DAILY [facility] Last Admin: 07/31/23 08:06 Dose: 200 mg Documented By: SCOTT Bumetanide (Bumetanide 1 Mg Tablet) 2 mg PO DAILY [facility]; Protocol Last Admin: 07/31/23 08:06 Dose: 2 mg Documented By: SCOTT Dextrose (Dextrose 50 % 25 Gm/50 Ml Syringe) 25 gm IVPUSH Q15M PRN; Protocol PRN Reason: per Hypoglycemia Standing Ord. Ferrous Sulfate (Ferrous Sulfate 324 Mg Tablet.) 324 mg PO DAILY [facility] Last Admin: 07/31/23 08:06 Dose: 324 mg Documented By: SCOTT Gabapentin (Gabapentin 300 Mg Capsule) 300 mg PO BID [facility] Last Admin: 07/31/23 08:05 Dose: 300 mg Documented By: SCOTT Glucose (Glucose Gel 15 Gm Gel..Gram.) 15 gm PO Q15M PRN; Protocol PRN Reason: per Hypoglycemia Standing Ord. Guaifenesin (Guaifenesin La 600 Mg Tab.Er.12h) 600 mg PO BID [facility] Last Admin: 07/31/23 08:05 Dose: 600 mg Documented By: SCOTT Guaifenesin/Codeine Phosphate (Guaifen/Codeine Sf 200/20/10ml 10 Ml Liquid) 10 ml PO Q6H [facility] Last Admin: 07/31/23 06:33 Dose: 10 ml Documented By: MANUEL Hydralazine HCl (Hydralazine Hcl 50 Mg Tablet) 100 mg PO BID [facility]; Protocol Last Admin: 07/31/23 08:05 Dose: 100 mg Documented By: SCOTT Insulin Glargine (Insulin Glargine,Hum.Rec.Anlog 100 Unit/Ml 10 Ml Vial) 20 unit SUBCUT BID [facility] Last Admin: 07/31/23 08:07 Dose: 20 unit Documented By: SCOTT Insulin Human Lispro (Insulin Lispro 100 Unit/Ml 3 Ml Vial) 0 unit SUBCUT QIDACHS [facility]; Protocol Last Admin: 07/31/23 08:16 Dose: 2 unit Documented By: SCOTT Insulin Human Lispro (Insulin Lispro 100 Unit/Ml 3 Ml Vial) 8 unit SUBCUT QIDAS [facility] Last Admin: 07/31/23 08:15 Dose: 8 unit Documented By: SCOTT Isosorbide Dinitrate (Isosorbide Dinitrate 20 Mg Tablet) 20 mg PO 0800,1300 [facility]; Protocol Last Admin: 07/31/23 08:06 Dose: 20 mg Documented By: SCOTT Levalbuterol HCl (Levalbuterol Hcl 1.25 Mg/3 Ml Vial.Neb) 1.25 mg INHALE RTID PRN PRN Reason: sob/wheezing Melatonin (Melatonin 3 Mg Tablet) 6 mg PO BEDTIME PRN PRN Reason: Insomnia Omeprazole (Omeprazole 40 Mg Capsule.) 40 mg PO BID@0630,1630 [facility] Last Admin: 07/31/23 06:33 Dose: 40 mg Documented By: MANUEL Ondansetron HCl (Ondansetron Hcl 4 Mg/2 Ml Vial) 4 mg IVPUSH Q8H PRN PRN Reason: Nausea and Vomiting Prednisone (Prednisone 10 Mg Tablet) 10 mg PO DAILY [facility] Last Admin: 07/31/23 08:06 Dose: 10 mg Documented By: SCOTT Senna (Sennosides 8.6 Mg Tablet) 17.2 mg PO DAILY PRN PRN Reason: constipation Last Admin: 07/30/23 18:22 Dose: 17.2 mg Documented By: SYDNIE Sitagliptin Phosphate (Sitagliptin Phosphate 100 Mg Tablet) 100 mg PO DAILY [facility] Last Admin: 07/31/23 08:05 Dose: 100 mg Documented By: SCOTT Sodium Chloride (0.9 % Sodium Chloride Flush 3 Ml Syringe) 3 ml IVFLUSH QSHIFT [facility] Last Admin: 07/31/23 08:09 Dose: 3 ml Documented By: SCOTT Spironolactone (Spironolactone 25 Mg Tablet) 25 mg PO BID [facility]; Protocol Last Admin: 07/31/23 08:05 Dose: 25 mg Documented By: SCOTT Trazodone HCl (Trazodone Hcl 25 Mg Halftab) 12.5 mg PO BEDTIME PRN PRN Reason: Insomnia Last Admin: 07/29/23 02:24 Dose: 12.5 mg Documented By: ERNEI Warfarin Sodium (Warfarin Sodium 1 Mg Tablet) 1 mg PO Q48H [facility] Last Admin: 07/30/23 18:13 Dose: 1 mg Documented By: SYDNIE Warfarin Sodium (Warfarin Sodium 2.5 Mg Tablet) 2.5 mg PO Q48H [facility] Last Admin: 07/25/23 17:42 Dose: 2.5 mg Documented By: EROS Labs 07/28/23 06:59 07/30/23 06:11 Labs: Laboratory Results - last 24 hr 07/30/23 07/30/23 07/30/23 10:50 11:18 17:04 PT INR POC Glucose 205 H 171 H B-Natriuretic Peptide 357 H 07/30/23 07/31/23 07/31/23 20:38 05:49 07:51 PT 34.3 H INR 2.8 H POC Glucose 234 H 193 H B-Natriuretic Peptide Assessment and Plan (1) Rhinovirus: Status: Acute (2) Asthma exacerbation: Status: Acute (3) CHF exacerbation: Status: Acute Plan 63-year-old woman admitted with acute congestive heart failure exacerbation and asthma exacerbation found to have rhinovirus Asthma exacerbation due to rhinovirus , improved, no hypoxia IV steroid x 7 days now, change to PO Prednisone for total of 10 days continue bronchodilators by Neb pulmonary >Aerobika valve for CPT, sputum cx from 07/26 showing mixed respiratory adry, repeat sputum culture ordered 07/28; pt requests doxy to be stopped Heart failure with reduced ejection fraction, EF 25-30%, severe aortic stenosis, severe TR s/p Lasix drip, now on Bumex 2mg daily continue hydralazine 100 mg twice daily for afterload reduction, Isordil to 20 mg twice daily for preload reduction, aldcatone Monitor weight, salt, water intake and BMP Persistent atrial fibrillation, rate controlled s/p digoxin 0.25 mg IV q.6 x2 continue amiodarone Warfarin on hold, INR 2.8 INR goal 2.5-3.5 ([facility] mirtral valve) Daily INR Diabetes mellitus type 2 with hyperglycemia - d/t steroid reduce steroid Hba1c 7.1 increase lantus to 20 units BID, januvia Sliding scale, mealtime insulin 6 units, ada diet Iron def anemia heme + but no overt bleeding As per Cardiology, transfuse for hematocrit greater than 30 s/p 1 unit of PRBCs low iron, continue supplement H/H stable needs to remain on AC due to mechanical mitral valve TORRI on CKD 3b Scr trending up Back pain msk warm compress as needed tylenol prn Peripheral neuropathy, unspecified continue neurontin DVT prophylaxis with warfarin Attending Dr. Reveles Full code dispo: pt rec home with services when medically ready continued hospital stay for treatment of acute congestive heart failure requiring IV diuretics, IV steroids, specialty consultation and close monitoring of respiratory status Quality Stroke Does the patient have a stroke diagnosis?: No VTE Prior VTE?: No VTE Risk Level:: Medical - moderate - high VTE Device Contraindication: Treatment Not Indicated VTE Drug Contraindication: N/A - Med Ordered
[2023-07-31 12:17] LABS: Glucose, Whole Blood 90 mg/dL (60-115)
[2023-07-31 16:20] LABS: Glucose, Whole Blood 338 mg/dL (60-115)
[2023-07-31] MEDS: Warfarin Sodium 2.5 MG TABLET PO (17:24)
[2023-07-31 20:02] LABS: Glucose, Whole Blood 176 mg/dL (60-115)
[2023-07-31] MEDS: LORazepam 0.5 MG TABLET 0.25 MG PO (21:13)
[2023-08-01] VITALS (10 sets, daily range): BP systolic 110–135; BP diastolic 53–73; PULSE 70–97; RESP 18–20; TEMP 36.1–37.1; O2SAT 92–96
[2023-08-01] MEDS: Acetaminophen 325 MG TABLET 650 MG PO (04:39)
[2023-08-01] MEDS: Albuterol/Iprat 2.5/0.5MG 3 ML AMPUL.NEB INHALE ×3 (04:45→15:25)
[2023-08-01] MEDS: guaiFEN/Codeine SF 200/20/10ML 10 ML LIQUID PO ×3 (06:05→19:49)
[2023-08-01] MEDS: Omeprazole 40 MG CAPSULE.DR PO ×2 (06:05→16:50)
[2023-08-01 07:32] LABS: INTERNATIONAL NORM RATIO 3.3 (0.9-1.1)
[2023-08-01 07:34] LABS: Glucose, Whole Blood 56 mg/dL (60-115)
[2023-08-01] MEDS: hydrALAZINE HCl 50 MG TABLET 100 MG PO (08:08)
[2023-08-01] MEDS: Bumetanide 1 MG TABLET 2 MG PO (08:08)
[2023-08-01] MEDS: Isosorbide Dinitrate 20 MG TABLET PO ×2 (08:08→12:33)
[2023-08-01] MEDS: SITagliptin Phosphate 100 MG TABLET PO (08:08)
[2023-08-01] MEDS: Azithromycin 500 MG TABLET PO (08:08)
[2023-08-01] MEDS: predniSONE 10 MG TABLET PO (08:08)
[2023-08-01] MEDS: Ferrous Sulfate 324 MG TABLET.DR PO (08:08)
[2023-08-01] MEDS: Amiodarone HCL 200 MG TABLET PO (08:08)
[2023-08-01] MEDS: Gabapentin 300 MG CAPSULE PO (08:08)
[2023-08-01] MEDS: guaiFENesin LA 600 MG TAB.ER.12H PO (08:08)
[2023-08-01] MEDS: Spironolactone 25 MG TABLET PO (08:09)
[2023-08-01 08:28] LABS: Anion Gap 15 (12-20); Blood Urea Nitrogen 100 mg/dL (9-16); Calcium 8.4 mg/dL (8.4-10.2); Carbon Dioxide 28 mmol/L (22-29); Chloride 95 mmol/L (96-108); Creatinine Clr Calc Pharmacy 32.6; Estimated Glomerular Filt Rate 28; Glucose Random 83 mg/dL (60-115); Potassium 3.6 mmol/L (3.3-5.1); Sodium 134 mmol/L (135-145)
[2023-08-01 08:33] LABS: B Type Natriuretic Peptide 263 pg/mL (<100)
[2023-08-01 08:46] LABS: Glucose, Whole Blood 110 mg/dL (60-115)
--- NOTE | 2023-08-01 10:27 | PM.PNCARD ---
Subjective Subjective Date of Service: 08/01/23 Principal diagnosis: CHF, atrial fibrillation Interval history: Asked to review again. Patient states she has not feeling too good. Still having lot of cough. Shortness of breath. Very wheezy. Review of Systems Review of Systems Yes all other systems are reviewed and are negative Constitutional: Reports as per HPI and Reports no additional constitutional complaints Eyes: Reports as per HPI and Denies no additional eye complaints Denies system reviewed and no additional complaints, except as documented and Reports as per HPI Cardiovascular: Reports as per HPI, Reports no additional cardiovascular complaints, Denies acrocyanosis, Denies cool extremities, Denies chest pain, Denies leg edema, Denies lightheadedness, Denies palpitations and Denies dyspnea Respiratory: Reports as per HPI, Denies no additional respiratory complaints and Denies dyspnea Gastrointestinal: Reports as per HPI and Denies no additional gastrointestinal complaints Genitourinary: Reports as per HPI Musculoskeletal: Reports no additional musculoskeletal complaints and Reports as per HPI Skin/Breast: Reports system reviewed and no additional complaints, except as docu Reports system reviewed and no additional complaints, except as documented and Reports as per HPI Psychiatric: Reports no additional psychiatric complaints and Reports as per HPI Endocrine: Reports no additional endocrine complaints, Reports as per HPI and Denies palpitations Hematologic/Lymphatic: Reports no additional hematologic/lymphatic complaints and Reports as per HPI Allergic/Immunologic: Reports no additional allergic/immunologic complaints and Reports as per HPI Physical Exam Vital Signs: Last Vital Signs Temp 97.0 F 08/01/23 07:18 Pulse 84 08/01/23 07:25 Resp 20 08/01/23 07:25 BP 134/62 08/01/23 07:18 Pulse Ox 96 08/01/23 07:18 O2 Del Method Room Air 08/01/23 07:18 O2 Flow Rate 2 07/22/23 06:19 Oxygen Flow Rate 2 07/22/23 05:50 BMI result Body Mass Index 26.4 Const General: comfortable, no acute distress and tired appearing Orientation/consciousness: patient oriented x3 HEENT Other: Unremarkable Head: Yes normal to inspection Neck Neck: Yes normal visual inspection Chest Chest palpation & inspection: normal inspection of the chest Resp Auscultation: rhonchi, wheezes and diminished lung sounds Cardio Palpation: normal PMI Heart sounds: S1 normal heart sound present, S2 normal heart sound present, no gallops, Murmur heart sound present systolic II/ and at the right sternal border and no rubs GI Palpation (GI): Soft to palpation Back/Spine/Pelvis Other: unremarkable Skin General skin exam: no rashes or lesions noted Neuro General: patient oriented x3 Extrem Other: Trace to 1+ edema. General: Yes normal to inspection Psych Mental Status: mental status grossly normal Objective Labs and Meds 07/28/23 06:59 08/01/23 07:53 Lab results: Laboratory Results - last 24 hr 07/31/23 07/31/23 07/31/23 12:13 16:11 19:58 Hold Purple Top PT INR Sodium Potassium Chloride Carbon Dioxide Anion Gap BUN Creatinine Estim Creat Clear Calc Estimated GFR POC Glucose 90 338 H 176 H Random Glucose Calcium B-Natriuretic Peptide 08/01/23 08/01/23 08/01/23 06:54 07:19 07:53 Hold Purple Top SEE NOTE PT 40.0 H INR 3.3 H Sodium 134 L Potassium 3.6 Chloride 95 L Carbon Dioxide 28 Anion Gap 15 BUN 100 H Creatinine 1.83 H Estim Creat Clear Calc 32.6 Estimated GFR 28 POC Glucose 56 L* Random Glucose 83 Calcium 8.4 B-Natriuretic Peptide 263 H 08/01/23 08:07 Hold Purple Top PT INR Sodium Potassium Chloride Carbon Dioxide Anion Gap BUN Creatinine Estim Creat Clear Calc Estimated GFR POC Glucose 110 Random Glucose Calcium B-Natriuretic Peptide Imaging Radiologist's impression: Impressions Chest X-Ray 08/01/23 08:30 IMPRESSION: Chronic changes of the lungs without acute pulmonary pathology. Progress Note: A&P Assessment and plan (1) Acute on chronic systolic (congestive) heart failure: Status: Acute (2) Cardiomyopathy: Status: Acute (3) Non-rheumatic aortic stenosis: Status: Acute (4) H/O mitral valve replacement with mechanical valve: Status: Acute (5) Persistent atrial fibrillation: Status: Acute (6) Rhinovirus: Status: Acute Plan Pertinent data reviewed. On the echocardiogram, she has markedly diminished LVEF as well as suggestion of low gradient, low-flow severe aortic stenosis. Based on cardiac BNP, clinical exam as well as chest x-ray, doubt any congestive heart failure playing a major role at this time. More likely intrinsic lung disease/bronchitis from recent viral infection. No need for aggressive diuresis at this time. Pulmonary to see. Once pulmonary status improves, will need eventually outpatient workup for potential TAVR. Discussed with Nakia Bashir. Time Spent With Patient Time: Total time managing care of this patient today ____ minutes. Progress Note: Quality Stroke Does the patient have a stroke diagnosis?: No Procedures Date of Service Date of Service: 08/01/23
[2023-08-01 11:08] LABS: Glucose, Whole Blood 146 mg/dL (60-115)
--- NOTE | 2023-08-01 11:31 | P.PNPL_ITS ---
Subjective Subjective Date of Service: 08/01/23 Principal diagnosis: CHF, atrial fibrillation Interval history: 63-year-old lady, less than 10 pack-year smoker, quit 1990 with underlying biventricular failure and severe aortic stenosis admitted with dyspnea orthopnea, and rhinovirus infection. Treated with diuresis and empiric antibiotics with some improvement, however still with orthopnea, lower extremity edema, and dyspnea on exertion. Objective Data Labs 07/28/23 06:59 08/01/23 07:53 Labs: Laboratory Results - last 24 hr 07/31/23 07/31/23 07/31/23 12:13 16:11 19:58 Hold Purple Top PT INR Sodium Potassium Chloride Carbon Dioxide Anion Gap BUN Creatinine Estim Creat Clear Calc Estimated GFR POC Glucose 90 338 H 176 H Random Glucose Calcium B-Natriuretic Peptide 08/01/23 08/01/23 08/01/23 06:54 07:19 07:53 Hold Purple Top SEE NOTE PT 40.0 H INR 3.3 H Sodium 134 L Potassium 3.6 Chloride 95 L Carbon Dioxide 28 Anion Gap 15 BUN 100 H Creatinine 1.83 H Estim Creat Clear Calc 32.6 Estimated GFR 28 POC Glucose 56 L* Random Glucose 83 Calcium 8.4 B-Natriuretic Peptide 263 H 08/01/23 08/01/23 08:07 10:58 Hold Purple Top PT INR Sodium Potassium Chloride Carbon Dioxide Anion Gap BUN Creatinine Estim Creat Clear Calc Estimated GFR POC Glucose 110 146 H Random Glucose Calcium B-Natriuretic Peptide Microbiology Microbiology Results: Microbiology 07/26/23 22:45 Sputum - Expectorated Gram Stain - Final 07/26/23 22:45 Sputum - Expectorated Sputum Culture - Final 07/22/23 08:17 Blood - Venous Blood Culture - Final No growth after 5 days. 07/22/23 08:17 Blood - Venous Blood Culture - Final No growth after 5 days. Review of Systems Cardiovascular: Reports pedal edema, Reports dyspnea on exertion and Reports orthopnea Respiratory: Reports cough, Reports dyspnea on exertion and Denies wheezing Allergic/Immunologic: Denies wheezing Physical Exam 2 Vital Signs: Vital Signs: Last Vital Signs Temp 97.6 F 08/01/23 10:58 Pulse 93 08/01/23 11:09 Resp 20 08/01/23 10:58 BP 126/73 08/01/23 11:09 Pulse Ox 92 08/01/23 11:09 O2 Del Method Room Air 08/01/23 10:58 O2 Flow Rate 2 07/22/23 06:19 Oxygen Flow Rate 2 07/22/23 05:50 BMI result Body Mass Index 26.4 Const: General: no acute distress, alert and awake Eyes: Sclerae: sclerae normal EOM: EOMs intact bilaterally Neck: Neck: Yes no lymphadenopathy, Yes trachea midline and Yes supple Resp: Effort & Inspection: normal respiratory effort and no respiratory distress Auscultation: rales bilateral Cardio: Rate: regular rate Rhythm: regular rhythm Heart sounds: no gallops, no murmurs and no rubs GI: Palpation (GI): Soft to palpation and Other GI palpation findings present ( Nontender) Auscultation: normal bowel sounds Extrem: General: No clubbing, No cyanosis, Yes pedal edema (1+ bilateral) and Yes venous stasis dermatitis Procedures Date of Service Date of Service: 08/01/23 Assessment and Plan Assessment and plan (1) Biventricular failure: Status: Acute (2) Orthopnea: Status: Acute (3) Dyspnea on exertion: Status: Acute Plan Impression: 63-year-old lady admitted with upper respiratory symptoms secondary to rhinovirus and exacerbation of underlying biventricular failure. Pulmonary symptoms essentially resolved, still with underlying acute on chronic heart failure, worsened over the last 24 hours as needed by patient's worsening orthopnea and edema. No evidence of pneumonia. No evidence of COPD. Recommendations: Consider discontinuation of antibiotics and systemic glucocorticoids. Consider additional diuresis. Consider advanced heart failure evaluation. Discussed with Nakia Bashir N.P. Time Spent With Patient Time: Total time managing care of this patient today ____ minutes. Progress Note: Quality Stroke Does the patient have a stroke diagnosis?: No
--- NOTE | 2023-08-01 11:41 | P.PNIM_ITS ---
Subjective Subjective Date of Service: 08/02/23 Interval History: follow up for CHF, rhinovirus, asthma exacerbation Interval history: no resp distress, still with some swelling in legs Physical Exam 2 Vital Signs: Vital Signs: Last Vital Signs Temp 97.6 F 08/01/23 10:58 Pulse 93 08/01/23 11:09 Resp 20 08/01/23 10:58 BP 126/73 08/01/23 11:09 Pulse Ox 92 08/01/23 11:09 O2 Del Method Room Air 08/01/23 10:58 O2 Flow Rate 2 07/22/23 06:19 Oxygen Flow Rate 2 07/22/23 05:50 BMI result Body Mass Index 26.4 Appearing in no acute distress lung sounds are clear to auscultation, exp wheezing heart regular rate rhythm, clear S1, S2 positive bowel sounds, abdomen is soft, nontender neuro patient is alert x3, no focal deficits Objective Data Active Medications Acetaminophen (Acetaminophen 325 Mg Tablet) 650 mg PO Q6H PRN PRN Reason: Pain, Mild (Pain Scale 1-3) Last Admin: 08/01/23 04:39 Dose: 650 mg Documented By: MANUEL Albuterol/Ipratropium (Albuterol/Iprat 2.5/0.5mg 3 Ml Ampul.Neb) 3 ml INHALE RQ4H [facility] Last Admin: 08/01/23 11:27 Dose: Not Given Documented By: SHOAIB Non-Admin Reason: See Note Comments: sore throat Amiodarone HCl (Amiodarone Hcl 200 Mg Tablet) 200 mg PO DAILY [facility] Last Admin: 08/01/23 08:08 Dose: 200 mg Documented By: DOMINGO Azithromycin (Azithromycin 500 Mg Tablet) 500 mg PO Q24H [facility] Last Admin: 08/01/23 08:08 Dose: 500 mg Documented By: DOMINGO Bumetanide (Bumetanide 1 Mg Tablet) 2 mg PO DAILY [facility]; Protocol Last Admin: 08/01/23 08:08 Dose: 2 mg Documented By: DOMINGO Dextrose (Dextrose 50 % 25 Gm/50 Ml Syringe) 25 gm IVPUSH Q15M PRN; Protocol PRN Reason: per Hypoglycemia Standing Ord. Ferrous Sulfate (Ferrous Sulfate 324 Mg Tablet.) 324 mg PO DAILY [facility] Last Admin: 08/01/23 08:08 Dose: 324 mg Documented By: DOMINGO Gabapentin (Gabapentin 300 Mg Capsule) 300 mg PO BID [facility] Last Admin: 08/01/23 08:08 Dose: 300 mg Documented By: DOMINGO Glucose (Glucose Gel 15 Gm Gel..Gram.) 15 gm PO Q15M PRN; Protocol PRN Reason: per Hypoglycemia Standing Ord. Guaifenesin (Guaifenesin La 600 Mg Tab.Er.12h) 600 mg PO BID [facility] Last Admin: 08/01/23 08:08 Dose: 600 mg Documented By: DOMINGO Guaifenesin/Codeine Phosphate (Guaifen/Codeine Sf 200/20/10ml 10 Ml Liquid) 10 ml PO Q6H [facility] Last Admin: 08/01/23 06:05 Dose: 10 ml Documented By: MANUEL Hydralazine HCl (Hydralazine Hcl 50 Mg Tablet) 100 mg PO BID [facility]; Protocol Last Admin: 08/01/23 08:08 Dose: 100 mg Documented By: DOMINGO Insulin Glargine (Insulin Glargine,Hum.Rec.Anlog 100 Unit/Ml 10 Ml Vial) 20 unit SUBCUT BID [facility] Last Admin: 08/01/23 08:00 Dose: Not Given Documented By: DOMINGO Non-Admin Reason: PO 56 Insulin Human Lispro (Insulin Lispro 100 Unit/Ml 3 Ml Vial) 0 unit SUBCUT QIDACHS [facility]; Protocol Last Admin: 08/01/23 07:33 Dose: Not Given Documented By: DOMINGO Non-Admin Reason: POC 56 Insulin Human Lispro (Insulin Lispro 100 Unit/Ml 3 Ml Vial) 8 unit SUBCUT QIDACHS [facility] Last Admin: 08/01/23 07:33 Dose: Not Given Documented By: DOMINGO Non-Admin Reason: POC 56 Isosorbide Dinitrate (Isosorbide Dinitrate 20 Mg Tablet) 20 mg PO 0800,1300 [facility]; Protocol Last Admin: 08/01/23 08:08 Dose: 20 mg Documented By: DOMINGO Levalbuterol HCl (Levalbuterol Hcl 1.25 Mg/3 Ml Vial.Neb) 1.25 mg INHALE RTID PRN PRN Reason: sob/wheezing Lorazepam (Lorazepam 0.5 Mg Tablet) 0.25 mg PO BEDTIME PRN PRN Reason: Insomnia Last Admin: 07/31/23 21:13 Dose: 0.25 mg Documented By: MANUEL Melatonin (Melatonin 3 Mg Tablet) 6 mg PO BEDTIME PRN PRN Reason: Insomnia Omeprazole (Omeprazole 40 Mg Capsule.Dr) 40 mg PO BID@0630,1630 [facility] Last Admin: 08/01/23 06:05 Dose: 40 mg Documented By: MANUEL Ondansetron HCl (Ondansetron Hcl 4 Mg/2 Ml Vial) 4 mg IVPUSH Q8H PRN PRN Reason: Nausea and Vomiting Prednisone (Prednisone 10 Mg Tablet) 10 mg PO DAILY [facility] Last Admin: 08/01/23 08:08 Dose: 10 mg Documented By: DOMINGO Senna (Sennosides 8.6 Mg Tablet) 17.2 mg PO DAILY PRN PRN Reason: constipation Last Admin: 07/30/23 18:22 Dose: 17.2 mg Documented By: SYDNIE Sitagliptin Phosphate (Sitagliptin Phosphate 100 Mg Tablet) 100 mg PO DAILY [facility] Last Admin: 08/01/23 08:08 Dose: 100 mg Documented By: DOMINGO Sodium Chloride (0.9 % Sodium Chloride Flush 3 Ml Syringe) 3 ml IVFLUSH QSHIFT [facility] Last Admin: 08/01/23 08:09 Dose: 3 ml Documented By: DOMINGO Spironolactone (Spironolactone 25 Mg Tablet) 25 mg PO BID [facility]; Protocol Last Admin: 08/01/23 08:09 Dose: 25 mg Documented By: DOMINGO Trazodone HCl (Trazodone Hcl 25 Mg Halftab) 12.5 mg PO BEDTIME PRN PRN Reason: Insomnia Last Admin: 07/29/23 02:24 Dose: 12.5 mg Documented By: ERNIE Warfarin Sodium (Warfarin Sodium 1 Mg Tablet) 1 mg PO Q48H [facility] Last Admin: 07/30/23 18:13 Dose: 1 mg Documented By: SYDNIE Warfarin Sodium (Warfarin Sodium 2.5 Mg Tablet) 2.5 mg PO Q48H [facility] Last Admin: 07/31/23 17:24 Dose: 2.5 mg Documented By: MARLONMOD Labs 07/28/23 06:59 08/01/23 07:53 Labs: Laboratory Results - last 24 hr 07/31/23 07/31/23 07/31/23 12:13 16:11 19:58 Hold Purple Top PT INR Anion Gap Estim Creat Clear Calc Estimated GFR POC Glucose 90 338 H 176 H Random Glucose Calcium B-Natriuretic Peptide 08/01/23 08/01/23 08/01/23 06:54 07:19 07:53 Hold Purple Top SEE NOTE PT 40.0 H INR 3.3 H Anion Gap 15 Estim Creat Clear Calc 32.6 Estimated GFR 28 POC Glucose 56 L* Random Glucose 83 Calcium 8.4 B-Natriuretic Peptide 263 H 08/01/23 08/01/23 08:07 10:58 Hold Purple Top PT INR Anion Gap Estim Creat Clear Calc Estimated GFR POC Glucose 110 146 H Random Glucose Calcium B-Natriuretic Peptide Assessment and Plan (1) Rhinovirus: Status: Acute (2) Asthma exacerbation: Status: Acute (3) CHF exacerbation: Status: Acute Plan 63-year-old woman admitted with acute congestive heart failure exacerbation and asthma exacerbation found to have rhinovirus Asthma exacerbation due to rhinovirus, still whezing, no hypoxia s/p IV steroid x 7 days, now on PO Prednisone for total of 10 days continue bronchodilators by Neb pulmonary >Aerobika valve for CPT, sputum cx from 07/26 showing mixed respiratory adry azithromycin for bronchitis Pulm rec continue diuresis Heart failure with reduced ejection fraction, EF 25-30%, severe aortic stenosis, severe TR s/p Lasix drip, now on Bumex 2mg daily, pulm rec changing to IV continue hydralazine 100 mg twice daily for afterload reduction, Isordil to 20 mg twice daily for preload reduction, aldcatone Monitor weight, salt, water intake and BMP Persistent atrial fibrillation, rate controlled s/p digoxin 0.25 mg IV q.6 x2 continue amiodarone INR goal 2.5-3.5 ([facility] mitral valve) Daily INR warfarin Diabetes mellitus type 2 with hyperglycemia d/t steroid Hba1c 7.1 increase lantus to 20 units BID, januvia Sliding scale, mealtime insulin 8 units ada diet Iron def anemia heme + but no overt bleeding As per Cardiology, transfuse for hematocrit greater than 30 s/p 1 unit of PRBCs low iron, continue supplement H/H stable needs to remain on AC due to mechanical mitral valve TORRI on CKD 3b Scr trending up Back pain msk warm compress as needed tylenol prn Peripheral neuropathy, unspecified continue neurontin DVT prophylaxis with warfarin Attending Dr. Reveles Full code dispo: pt rec home with services when medically ready continued hospital stay for treatment of acute congestive heart failure requiring IV diuretics, IV steroids, specialty consultation and close monitoring of respiratory status Quality Stroke Does the patient have a stroke diagnosis?: No VTE Prior VTE?: No VTE Risk Level:: Medical - moderate - high VTE Device Contraindication: Treatment Not Indicated VTE Drug Contraindication: N/A - Med Ordered
[2023-08-01] MEDS: Bumetanide 1 MG/4 ML VIAL IVPUSH (12:34)
--- NOTE | 2023-08-01 13:25 | MHC.CM.PN ---
Per APPEALS COORDINATOR/Nakia, Patient will dc/transfer to [facility] today for a Cardiac Catheterization.
--- NOTE | 2023-08-01 14:21 | P.DS_ITS ---
DS: Providers Provider Date of Service: 08/01/23 Date of admission: 07/22/23 15:22 Primary care physician: Devi Santoyo MD Consults: 07/22/23 15:20 Consult to Cardiology Routine Consulting Provider: [facility] [place] [facility] Reason for consultation: CHF 07/25/23 09:59 Consult to Pulmonology Routine Consulting Provider: [facility] [place] [facility] Reason for consultation: wheezing DS: Diagnosis Discharge Diagnosis (1) Rhinovirus: Status: Acute (2) Asthma exacerbation: Status: Acute (3) CHF exacerbation: Status: Acute DS: Summary Hospital Course Hospital Course: 63-year-old woman presenting to the ER with complaints of worsening shortness of breath and cough since yesterday evening. She reports that she was watching TV and suddenly developed shortness of breath. Denied chest pain, palpitations, nausea, vomiting, diarrhea. Reports that she had nasal congestion and a productive cough over the last week. She did report some chills. Chest x-ray showed cardiomegaly with mild diffuse increased interstitial markings, BNP 371, troponin 23, stool occult positive, no fever leukocytosis noted. Patient was given a dose of Rocephin, IV Lasix, Solu-Medrol, albuterol in the ER. She will be admitted for further management and treatment of acute congestive heart failure and asthma exacerbation. 63-year-old woman treated for acute on chronic congestive heart failure with reduced ejection fraction and asthma exacerbation. Patient was initially started on IV Lasix 40 mg b.i.d. then transition to IV Lasix drip and on 5 mg an hour for approximately 6 days then due to likely contraction alkalosis, TORRI switched to oral Bumex 2 mg daily as per cardiology. She waxed and waned being having a negative in positive balance. She seemed to diurese well but continued to have expiratory wheezing. She was seen evaluated by pulmonology who recommended maximizing treatment for asthma exacerbation for which she was on Solu-Medrol 60 mg t.i.d., albuterol every 4 hours while awake, at 1 point doxycycline, now azithromycin. After 10 days she still has symptoms of wheezing, dry cough now today orthopnea and chest tightness. Her case is complicated and she does have a history of severe cardiomyopathy, echocardiogram 07/24/2023 showed severely reduced LV ejection fraction of 25-30%, severe biatrial enlargement, severe aortic stenosis with valve area of 0.7 cm low-flow severe aortic stenosis, mechanical mitral valve in place with normal function, severe TR, moderate elevation of right ventricular systolic pressure severely elevated right atrial pressures, severe global hypokinesis, mildly increased left ventricular wall thickness with left ventricular systolic function severely decreased. She has followed at [facility] in the past in the heart failure Clinic and the plan is for her to be transferred for a right heart catheterization as it has been difficult to identify the source of her dyspnea, orthopnea and wheezing as cardiac versus respiratory. She has nearly maximized treatment for both. Currently she is on hydralazine 100 mg twice daily for afterload reduction, Isordil 20 mg twice daily for preload reduction, Aldactone, IV Bumex 2 mg twice daily. Patient is not hypoxic nor she has been for some time and she does not require oxygen but she had complaints of chest tightness, orthopnea and increased wheezing, worse over the last 24 hours showed chronic changes of the lungs without acute pulmonary pathology, really no change from previous chest x-ray and chest CTA. No fever or leukocytosis. Of note she is ambulatory, lives with her and fairly normally active. Her appetite has been good and she has been urinating and passing her bowels. Plan is for transfer to [facility] for right-sided heart catheterization. Persistent atrial fibrillation with controlled rate. She was treated with digoxin 0.5 mg for 2 doses, amiodarone continued. Warfarin for mechanical mitral valve, INR goal of 2.5-3.5 Diabetes mellitus with hyperglycemia. Secondary to steroid use. Hemoglobin A1c 7.1. Lantus increased to 20 units twice daily, Januvia continued, sliding scale and mealtime insulin. Iron deficiency anemia. Heme-positive but no overt bleeding. Cardiology recommend transfusion for hematocrit greater than 30, H&H stable at this time, status post 1 unit PRBC. Iron low, continue supplementation. TORRI on CKD 3B. Creatinine trending up likely due to contraction alkalosis but stable at this time Back pain. Musculoskeletal. Treated with warm compresses and Tylenol sent peripheral neuropathy. On Neurontin Time Attestation Discharge coordination time: Greater than 30 minutes Quality: Safe Use of Opioids Does Pt have an Active Cancer Diagnosis on the Problem List?: No Quality: Stroke Does the patient have a stroke diagnosis?: No Physical Exam Vital Signs: Vital Signs: Last Vital Signs Temp 97.6 F 08/01/23 10:58 Pulse 93 08/01/23 11:09 Resp 20 08/01/23 10:58 BP 126/73 08/01/23 11:09 Pulse Ox 92 08/01/23 11:09 O2 Del Method Room Air 08/01/23 10:58 O2 Flow Rate 2 07/22/23 06:19 Oxygen Flow Rate 2 07/22/23 05:50 BMI result Body Mass Index 26.4 Appearing in no acute distress head is normocephalic atraumatic eyes pupils are PERRLA sclera is anicteric mouth throat mucous membranes are intact and moist neck is supple no lymphadenopathy, no JVD noted lung sounds exp wheezing heart regular rate rhythm, clear S1, S2 positive bowel sounds, abdomen is soft, nontender neuro patient is alert x3, no focal deficits DS: Data Data Completed and Pending Labs on day of discharge: Laboratory Results - last 24 hr 07/31/23 07/31/23 08/01/23 16:11 19:58 06:54 Hold Purple Top SEE NOTE PT 40.0 H INR 3.3 H Sodium Potassium Chloride Carbon Dioxide Anion Gap BUN Creatinine Estim Creat Clear Calc Estimated GFR POC Glucose 338 H 176 H Random Glucose Calcium B-Natriuretic Peptide 08/01/23 08/01/23 08/01/23 07:19 07:53 08:07 Hold Purple Top PT INR Sodium 134 L Potassium 3.6 Chloride 95 L Carbon Dioxide 28 Anion Gap 15 BUN 100 H Creatinine 1.83 H Estim Creat Clear Calc 32.6 Estimated GFR 28 POC Glucose 56 L* 110 Random Glucose 83 Calcium 8.4 B-Natriuretic Peptide 263 H 08/01/23 10:58 Hold Purple Top PT INR Sodium Potassium Chloride Carbon Dioxide Anion Gap BUN Creatinine Estim Creat Clear Calc Estimated GFR POC Glucose 146 H Random Glucose Calcium B-Natriuretic Peptide Discharge Plan Discharge Anticipated Discharge Date/Time: 08/01/23 14:12 Patient Disposition: Xfer Acute Care Hospital Discharge Diagnosis: Heart failure with reduced ejection fraction Asthma exacerbation Rhino virus (07/25/23) Persistent atrial fibrillation Referrals: [facility] [Outside] - 1 Week Devi Benavides MD [Primary Care Provider] - 1 Week Discharge Medications: New prednisone 10 mg Tablet 10 mg PO DAILY Qty: 7 0RF ipratropium-albuterol 0.5 mg-3 mg(2.5 mg base)/3 mL Solution For Nebulization 3 ml inhalation RQ4H Qty: 90 0RF isosorbide dinitrate 20 mg Tablet 20 mg PO 0800,1300 Qty: 30 0RF Protocol: Hold for SBP< HOLD for SBP < : 90 hydralazine 50 mg Tablet 100 mg PO BID Qty: 7 0RF Protocol: Hold for SBP< HOLD for SBP < : 90 bumetanide 0.25 mg/mL Solution 1 mg IVPUSH BID@0900,1700 Qty: 40 0RF Protocol: Hold for SBP< HOLD for SBP < : 90 azithromycin 500 mg Tablet 500 mg PO Q24H Qty: 3 0RF Continued amiodarone 200 mg tablet 200 mg PO DAILY Qty: 30 3RF Rx Instructions: Once you completed the 14 days start this script : one tab once a day. Script 2 of 2 spironolactone 25 mg tablet 25 mg PO BID Qty: 60 5RF gabapentin 300 mg capsule 300 mg PO BID sennosides [senna] 8.6 mg tablet 17.2 mg PO DAILY PRN (Reason: constipation) Beconase AQ 42 mcg (0.042 %) spray,non-aerosol 1 spray intranasal BID ferrous sulfate 325 mg (65 mg iron) tablet,delayed release (DR/EC) 325 mg PO DAILY albuterol sulfate 2.5 mg /3 mL (0.083 %) solution for nebulization 2.5 mg inhalation Q2-4H PRN (Reason: Shortness Of Breath Or Wheezing) warfarin 1 mg tablet 1 mg PO Q OTHER DAY Nucala 100 mg recon soln 100 mg subcut QMONTH codeine-guaifenesin 10-100 mg/5 mL liquid 5 ml PO Q4H PRN (Reason: Cough) warfarin 2.5 mg tablet 2.5 mg PO Q OTHER DAY Januvia 100 mg tablet 100 mg PO DAILY omeprazole 40 mg capsule,delayed release(DR/EC) 40 mg PO BID Held furosemide 20 mg tablet 20 mg PO TID Qty: 90 5RF Hold Instructions: Resume on 08/05/23. currently on bumex Rx Instructions: Call office immediately for weight gain, swelling, shortness of breath so we can adjust your dose. Discharge Orders: Discharge Order (Routine); Ordered 08/01/23 Ordered By: Nakia Bashir Diet: Advance to usual diet Activity on Discharge: As tolerated Stand Alone Forms: Patient Portal Discharge page Care Plan Goals: New medications: Isordil, hydralazine, prednisone, bumex, albuterol, azithromycin Health Concerns: Heart failure with reduced ejection fraction Asthma exacerbation Rhino virus (07/25/23) Persistent atrial fibrillation Plan of Treatment: Plan for transfer to [facility] for right heart catheterization Assessment: See discharge summary
[2023-08-01 14:56] LABS: Adenovirus PCR Not Detected (Not Detect.); Bordetella parapertussis PCR Not Detected (Not Detect.); Bordetella pertussis PCR Not Detected (Not Detect.); Chlamydia pneumoniae PCR Not Detected (Not Detect.); Coronavirus 229E PCR Not Detected (Not Detect.); Coronavirus HKU1 PCR Not Detected (Not Detect.); Coronavirus NL63 PCR Not Detected (Not Detect.); Coronavirus OC43 PCR Not Detected (Not Detect.); Human metapneumovirus PCR Not Detected (Not Detect.); Influenza A PCR Not Detected (Not Detect.); Influenza B PCR Not Detected (Not Detect.); Mycoplasma pneumoniae PCR Not Detected (Not Detect.); Parainfluenza 1 PCR Not Detected (Not Detect.); Parainfluenza 2 PCR Not Detected (Not Detect.); Parainfluenza 3 PCR Not Detected (Not Detect.); Parainfluenza 4 PCR Not Detected (Not Detect.); RSV PCR Not Detected (Not Detect.); Rhino/Enterovirus PCR Detected (Not Detect.)
[2023-08-01 15:22] LABS: SARS-CoV-2 PCR Not Detected (Not Detect.)
[2023-08-01 16:10] LABS: Glucose, Whole Blood 282 mg/dL (60-115)
[2023-08-01] MEDS: Insulin Lispro 100 UNIT/ML 3 ML VIAL 8 UNIT SUBCUT (16:50)
[2023-08-01] MEDS: Insulin Lispro 100 UNIT/ML 3 ML VIAL SUBCUT (16:50)
[2023-08-01] MEDS: Warfarin Sodium 1 MG TABLET PO (17:43)
== END 2023-08-01 20:15 | disposition short-term general hospital (02) | DRG 202 ==
LOC: HO.ED 09:46 → HO.EDOVER 15:23 → HO.IMC 17:20
PROVIDERS: Internal Medicine; Physician Assistant; Physician Assistant Medical; Admitting Provider Nurse Practitioner Acute Care; Emergency Provider Emergency Medicine; PCP Internal Medicine; Visit Provider Nurse Practitioner Acute Care
DX: J45.21 Mild intermittent asthma with (acute) exacerbation (principal); I50.23 Acute on chronic systolic (congestive) heart failure; I48.19 Other persistent atrial fibrillation; I42.9 Cardiomyopathy, unspecified; N17.9 Acute kidney failure, unspecified; N18.32 Chronic kidney disease, stage 3b; E11.22 Type 2 diabetes mellitus with diabetic chronic kidney disease; E11.65 Type 2 diabetes mellitus with hyperglycemia; I08.1 Rheumatic disorders of both mitral and tricuspid valves; E11.42 Type 2 diabetes mellitus with diabetic polyneuropathy; D50.9 Iron deficiency anemia, unspecified; I50.82 Biventricular heart failure; I27.21 Secondary pulmonary arterial hypertension; B97.89 Other viral agents as the cause of diseases classified elsewhere; D63.1 Anemia in chronic kidney disease; R79.1 Abnormal coagulation profile; Z20.822 Contact with and (suspected) exposure to COVID-19; Z95.2 Presence of prosthetic heart valve; Z87.891 Personal history of nicotine dependence; Z88.0 Allergy status to penicillin; Z88.1 Allergy status to other antibiotic agents; Z88.2 Allergy status to sulfonamides; Z79.01 Long term (current) use of anticoagulants; Z79.899 Other long term (current) drug therapy
CPT/HCPCS: 0241U; 36415; 71045; 71250; 80048; 80053; 81001; 82272; 82947; 83036; 83540; 83605; 83735; 83880; 84484; 85025; 85027; 85610; 85730; 86850; 86900; 86901; 86923; 87040; 87070; 87205; 87633; 93005; 93306; 94640; 97116; 97161; 97530; 99285; J0696; J1160; J1939; J1940; J2920; J2930; J3475; P9016; Q9957

== ENCOUNTER → 2023-07-22 05:37 | Outpatient (BNV) | payer OTHER, SELFPAY | PROVIDERS: Admitting Provider Nurse Practitioner Acute Care; Emergency Provider Emergency Medicine; PCP Internal Medicine; Visit Provider Internal Medicine Cardiovascular Disease | DX: I48.91 Unspecified atrial fibrillation (principal); R94.31 Abnormal electrocardiogram [ECG] [EKG] | CPT/HCPCS: 93010 ==

== ENCOUNTER 2023-07-22 15:22 | Outpatient (BNV) | payer OTHER, SELFPAY | END 2023-07-24 07:00 | PROVIDERS: Admitting Provider Nurse Practitioner Acute Care; Emergency Provider Emergency Medicine; PCP Internal Medicine; Visit Provider Internal Medicine Cardiovascular Disease | DX: I35.0 Nonrheumatic aortic (valve) stenosis (principal) | CPT/HCPCS: 93306 ==

== ENCOUNTER → 2023-07-22 15:22 | Outpatient (BNV) | payer OTHER, SELFPAY | PROVIDERS: Admitting Provider Nurse Practitioner Acute Care; Emergency Provider Emergency Medicine; PCP Internal Medicine; Visit Provider Nurse Practitioner Acute Care | DX: B34.8 Other viral infections of unspecified site (principal); J45.21 Mild intermittent asthma with (acute) exacerbation; I50.9 Heart failure, unspecified; I48.91 Unspecified atrial fibrillation; E11.65 Type 2 diabetes mellitus with hyperglycemia | CPT/HCPCS: 99222; 99232; 99233; 99239 ==

== ENCOUNTER → 2023-07-22 15:22 | Outpatient (BNV) | payer OTHER, SELFPAY | PROVIDERS: Admitting Provider Nurse Practitioner Acute Care; Emergency Provider Emergency Medicine; PCP Internal Medicine; Visit Provider Hospitalist | DX: I50.82 Biventricular heart failure (principal); R06.01 Orthopnea; R06.09 Other forms of dyspnea | CPT/HCPCS: 99223; 99232; 99233 ==

== ENCOUNTER → 2023-07-22 15:22 | Outpatient (BNV) | payer OTHER, SELFPAY | PROVIDERS: Admitting Provider Nurse Practitioner Acute Care; Emergency Provider Emergency Medicine; PCP Internal Medicine; Visit Provider Internal Medicine Cardiovascular Disease | DX: I50.23 Acute on chronic systolic (congestive) heart failure (principal); I42.9 Cardiomyopathy, unspecified; I35.0 Nonrheumatic aortic (valve) stenosis; Z95.2 Presence of prosthetic heart valve; I48.19 Other persistent atrial fibrillation; B34.8 Other viral infections of unspecified site | CPT/HCPCS: 99223; 99233 ==

== ENCOUNTER 2023-08-03 10:29 | Outpatient (REF) | payer OTHER, SELFPAY | END 2023-08-03 10:30 | disposition home or self-care (01) | LOC: HO.HOSX 10:29 | PROVIDERS: Visit Provider Physician Assistant | DX: Z13.89 Encounter for screening for other disorder (principal) ==

== ENCOUNTER 2023-08-28 08:21 | Outpatient (AMB) | payer OTHER, SELFPAY ==
--- NOTE | 2023-08-28 08:27 | MHC.OFFVIS ---
Intake Vital Signs 08/28/23 08:28 Height 5 ft 3 in Weight 133 lb 2.547 oz BMI 23.6 BP 134/62 Blood Pressure Location Lt brachial Position Sitting Pulse 61 Pulse Source Monitor Intake Visit Reasons: [facility] [place] follow [place] Intake Note: patient having nose bleeding since she got out hospital and s/b [place] [employer] Required: No Allergies lisinopril [LISINOPRIL] Allergy (Severe, Verified 08/28/23 08:30) ANGIOEDEMA morphine [MORPHINE] Allergy (Severe, Verified 08/28/23 08:30) ANAPHYLAXIS penicillin V Allergy (Intermediate, Verified 08/28/23 08:30) Itching cefaclor [From CECLOR] Allergy (Unknown, Verified 08/28/23 08:30) HIVES ciprofloxacin Allergy (Unknown, Verified 08/28/23 08:30) itchy codeine Allergy (Unknown, Verified 08/28/23 08:30) HIVES methylprednisolone Allergy (Unknown, Verified 08/28/23 08:30) Unknown nitrofurantoin Allergy (Unknown, Verified 08/28/23 08:30) Unknown olmesartan [Benicar] Allergy (Unknown, Verified 08/28/23 08:30) Unknown Penicillins Allergy (Unknown, Verified 08/28/23 08:30) HIVES Sulfa (Sulfonamide Antibiotics) Allergy (Unknown, Verified 08/28/23 08:30) HIVES hydromorphone [From Dilaudid] Adverse Reaction (Verified 08/28/23 08:30) Shakiness odansetron Allergy (Severe, Uncoded 06/14/23 09:53) Hives Metoprolol Succinate Allergy (Intermediate, Uncoded 06/14/23 09:53) Hives celcor Allergy (Unknown, Uncoded 06/14/23 09:53) itchy Gentamicin in Saline Allergy (Unknown, Uncoded 06/14/23 09:53) hives Gentamicin Sulfate Allergy (Unknown, Uncoded 06/14/23 09:53) hives Latex Allergy (Unknown, Uncoded 06/14/23 09:53) Itching latex Allergy (Unknown, Uncoded 06/14/23 09:53) Itching sulfonamides Allergy (Unknown, Uncoded 06/14/23 09:53) Unknown vioxx Allergy (Unknown, Uncoded 06/14/23 09:53) Itching Bicitra Adverse Reaction (Unknown, Uncoded 06/14/23 09:53) unknown Medication List - Last Reconciled 08/28/23 by MARVEL DanielsC albuterol sulfate 2.5 mg inhalation Q2-4H PRN amiodarone 200 mg PO DAILY atorvastatin 20 mg PO BEDTIME beclomethasone diprop (AQ) (Beconase AQ) 1 spray intranasal BID ferrous sulfate 325 mg PO DAILY furosemide 20 mg PO TID gabapentin 300 mg PO BID mepolizumab (Nucala) 100 mg subcut QMONTH omeprazole 40 mg PO BID sennosides (senna) 17.2 mg PO DAILY PRN sitagliptin phosphate (Januvia) 100 mg PO DAILY spironolactone 25 mg PO BID warfarin 1 mg PO Q OTHER DAY warfarin 2.5 mg PO Q OTHER DAY [facility] hospital follow up HPI Details Coretta is a 63-year-old female with past medical history of hyperlipidemia, rheumatic heart disease, severe MS status post mechanical mitral valve replacement 1990, severe , persistent atrial fibrillation, nonischemic cardiomyopathy, heart failure with reduced EF, who has been admitted [place] [facility] [place], [facility] [place] for shortness of breath, Congestive heart failure, COPD exacerbation since [facility] with [facility]. Her last [facility] discharge was on 08/21/2023. Today she reports that she has been doing generally well for the last few weeks. She says that torsemide does not work on her and she is now on Lasix 20 mg 3 times daily. She says she does not follow with a garment fitter. Her breathing has been comfortable. She sleeps with 1 large pillow. No coughing, weight gain, orthopnea. She denies chest discomfort at rest or with activity. No palpitations, lightheadedness, presyncope, syncope, falls. She does have some mild leg edema which she says is improved. She does normal ADLs and light housework. Taking all meds as directed. is present. [facility] Medical History (Updated 08/28/23 @ 09:42 by MARVEL DanielsC) Secondary pulmonary arterial hypertension Ovarian cancer Tricuspid valve insufficiency, non-rheumatic Non-rheumatic aortic stenosis Persistent atrial fibrillation Surgical History H/O mitral valve replacement with mechanical valve Family History Mother Heart disease Father Heart disease Diabetes Social History Household Members: Family Housing: House Do you presently have visiting nurse or other home services: Yes Alcohol intake: never Patient Tobacco Use Status: Former Tobacco user Quit Date: 1990 Smoked: 4 +/- service: No Review of Systems Const All systems reviewed & are unremarkable except as noted in HPI and below Reports fatigue and Reports weakness ENT Denies dizziness Card Denies chest pain, Denies chest pain at rest, Denies chest pain with activity, Denies rapid heart rate, Denies pedal edema, Denies edema, Denies leg edema, Denies lightheadedness, Denies palpitations, Denies dyspnea, Reports dyspnea on exertion and Denies orthopnea Resp Denies cough, Denies dyspnea and Reports dyspnea on exertion GI Denies hematochezia and Denies change in stool character Musc Denies abnormal gait, Denies limited range of motion, Denies muscle cramps, Denies muscle weakness, Denies numbness, Denies radiating pain into limb, Denies stiffness and Denies tingling Neuro Denies abnormal gait, Denies dizziness, Denies numbness, Denies tingling and Reports weakness Endo Reports fatigue and Denies palpitations Physical Exam Vital Signs: BMI result Body Mass Index 23.6 Const General: cooperative, healthy appearing, comfortable and no acute distress Orientation/consciousness: patient oriented x3 Resp Effort & Inspection: normal respiratory effort Auscultation: clear to auscultation bilaterally, no rales, no rhonchi and no wheezes Cardio Jugular venous distension: no JVD Rate: regular rate Rhythm: regular rhythm Heart sounds: S1 normal heart sound present, S2 normal heart sound present, Clicking heart sound present (Mitral valve click), Murmur heart sound present (systolic murmur of ) and no rubs GI Inspection: Yes normal to inspection Neuro General: patient oriented x3 Extrem General: Yes edema (bilateral mild tight lower leg edema) Psych Appearance: grossly normal Mental Status: mental status grossly normal Speech and movement: Normal speech and movement present Office Procedures EKG Details: Today, read by me, atrial fibrillation, right axis deviation, nonspecific intraventricular conduction delay, nonspecific ST and T-wave abnormality, JT index, 111, rate 81 [id number], Complete Assessment & Plan Assessment & Plan (1) Chronic systolic heart failure: Code(s): I50.22 - Chronic systolic (congestive) heart failure Plan: History of chronic systolic heart failure. Recent hospital admissions, [facility] [place], [facility] [place], each for shortness of breath and treated for either pneumonia, COPD exacerbation, Congestive heart failure exacerbation. Right heart catheterization done at [facility] on 08/04/2023 showed moderate pulmonary hypertension. Her most recent discharged occurred on 08/21/2023. She was sent home with torsemide 60 mg 2 times daily. She tells me that torsemide does not work on her and she was changed back to Lasix 20 mg t.i.d.. On examination today she does have some mild tight lower leg edema. Her breathing appears comfortable in no rales noted on examination. She does have severe tricuspid regurgitation making assessment for JVD difficult as she does have V waves. Last labs from [facility] done on 08/20/2023 showing creatinine 1.4, BUN 27, which is good for her. Will have her continue on current furosemide, Aldactone. Signs and symptoms of heart failure reviewed with her. Cardiology follow-up in 2 months, sooner if needed to re-evaluate heart failure and plan of care. (2) Cardiomyopathy: Code(s): I42.9 - Cardiomyopathy, unspecified Qualifiers: Cardiomyopathy type: unspecified Qualified Code(s): I42.9 - Cardiomyopathy, unspecified Plan: History of nonischemic cardiomyopathy. Echocardiogram from [facility] May 2022 showed EF 20-25%. Nuclear stress test done 2020 showed no ischemia, small mid inferior scar. She has multiple medication allergies and intolerances which make treatment with neurohormonal modulation more challenging. On last [facility] discharge she had been on isosorbide and hydralazine however upon [facility] discharge these meds were not included. At present she is on diuretics Aldactone and furosemide. Last echo done 07/24/2023 shows EF 25-30%, severe biatrial enlargement, severe aortic stenosis, mechanical mitral valve functioning normally, severe TR, moderate elevation of the RV systolic pressure with severely elevated right atrial pressures. Will review meds with her primary para machine operator Dr. Silverman and make addendum as needed. Signs and symptoms of heart failure reviewed with her. (3) Non-rheumatic aortic stenosis: Code(s): I35.0 - Nonrheumatic aortic (valve) stenosis Plan: Most recent echo shows severe aortic stenosis with aortic valve area 0.7 centimeter sq, low flow severe . Murmur noted on examination consistent with severe . She has had recent heart failure admissions. Breathing stable at present. She denies chest discomfort, palpitations, presyncope, syncope. Eventual TAVR. Will discuss timing with Dr. Silverman (4) H/O mitral valve replacement with mechanical valve: Code(s): Z95.2 - Presence of prosthetic heart valve Plan: Mechanical mitral valve placed 1990. Recent echo shows it is functioning normally. She is on Coumadin for anticoagulation and now has [facility] checking her INRs at home. INR goal 2.5-3.5. She has had epistaxis in the last few days. No bleeding noted at this visit. Suggested she obtain saline nasal spray. If epistaxis persists then she needs ENT evaluation and treatment. ER care if required. (5) Persistent atrial fibrillation: Code(s): I48.19 - Other persistent atrial fibrillation Plan: History of chronic persistent atrial fibrillation. She is currently on amiodarone which is being used for heart rate control. She is intolerant to beta blockers and unable to take calcium channel zechariah in the setting of cardiomyopathy. EKG done today showing atrial fibrillation, JT index 111, rate 81. No TSH in our system. Will update labs including CMP and TSH. (6) Hospital discharge follow-up: Code(s): Z09 - Encounter for follow-up examination after completed treatment for conditions other than malignant neoplasm Plan: As above (7) History of right heart catheterization: Comment: 08/04/2023 PA pressure 57/22/36, mean RA 13 mmHg, cardiac output and index 2.3-1.3. Moderate pulmonary hypertension Code(s): Z98.890 - Other specified postprocedural states Plan: As above (8) Tricuspid valve insufficiency, non-rheumatic: Code(s): I36.1 - Nonrheumatic tricuspid (valve) insufficiency Plan: Most recent echo showing severe tricuspid regurgitation. Severe pulmonary hypertension noted on right heart catheterization. She is on diuretic therapy. Breathing is reported as comfortable at present Plan Time spent on chart review, documentation, interview, assessment, reviewing 3 hospital discharges and talking with her primary para machine operator. Complex case Coding Level of Care Code Tele Est Pt Level 5 (48308) Diagnoses Chronic systolic heart failure I50.22 Cardiomyopathy, unspecified type I42.9 Cardiomyopathy type: unspecified Non-rheumatic aortic stenosis I35.0 H/O mitral valve replacement with mechanical valve Z95.2 Persistent atrial fibrillation I48.19 Hospital discharge follow-up Z09 History of right heart catheterization Z98.890 Tricuspid valve insufficiency, non-rheumatic I36.1 CPT Codes EKG - CPT: 49403-[id number], Complete ([id number]) Time Spent (min) 35
[2023-08-28 08:28] VITALS: BP 134/62; PULSE 61; BMI 23.6
== END 2023-08-28 10:03 | disposition home or self-care (01) ==
PROVIDERS: PCP Internal Medicine; Visit Provider Nurse Practitioner Family
DX: I50.22 Chronic systolic (congestive) heart failure (principal); I42.9 Cardiomyopathy, unspecified; I35.0 Nonrheumatic aortic (valve) stenosis; Z95.2 Presence of prosthetic heart valve; I48.19 Other persistent atrial fibrillation; Z09 Encounter for follow-up examination after completed treatment for conditions other than malignant neoplasm; Z98.890 Other specified postprocedural states; I36.1 Nonrheumatic tricuspid (valve) insufficiency
CPT/HCPCS: 93010; 99215

== ENCOUNTER → 2023-08-28 08:21 | Outpatient (BNVA) | payer OTHER, SELFPAY | PROVIDERS: PCP Internal Medicine; Visit Provider Nurse Practitioner Family | DX: Z09 Encounter for follow-up examination after completed treatment for conditions other than malignant neoplasm (principal); I50.22 Chronic systolic (congestive) heart failure; I42.9 Cardiomyopathy, unspecified; I35.0 Nonrheumatic aortic (valve) stenosis; I48.19 Other persistent atrial fibrillation; I36.1 Nonrheumatic tricuspid (valve) insufficiency; Z95.2 Presence of prosthetic heart valve; Z98.890 Other specified postprocedural states | CPT/HCPCS: 93005 ==

== ENCOUNTER 2023-09-21 12:19 | Outpatient (REF) | payer OTHER, SELFPAY ==
[2023-09-21 15:04] LABS: B Type Natriuretic Peptide 336 pg/mL (<100)
[2023-09-21 15:12] LABS: Anion Gap 13 (12-20); Blood Urea Nitrogen 30 mg/dL (9-16); Carbon Dioxide 26 mmol/L (22-29); Chloride 103 mmol/L (96-108); Estimated Glomerular Filt Rate 39; Glucose Random 138 mg/dL (60-115); Sodium 138 mmol/L (135-145)
== END 2023-09-21 12:20 | disposition home or self-care (01) ==
LOC: HO.LAB 12:19
PROVIDERS: PCP Internal Medicine; Visit Provider Internal Medicine
DX: I50.23 Acute on chronic systolic (congestive) heart failure (principal); I48.19 Other persistent atrial fibrillation; I35.0 Nonrheumatic aortic (valve) stenosis; I36.1 Nonrheumatic tricuspid (valve) insufficiency; Z95.2 Presence of prosthetic heart valve
CPT/HCPCS: 36415; 80048; 83880; 84443; 93005; 99212

== ENCOUNTER 2023-09-21 12:19 | Outpatient (AMB) | payer OTHER, SELFPAY ==
[2023-09-21 12:33] VITALS: BP 134/62; PULSE 76; BMI 24.0
--- NOTE | 2023-09-21 12:33 | A.OFFVIS_ITS ---
Intake Vital Signs 09/21/23 12:33 Height 5 ft 3 in Weight 135 lb 5.821 oz BMI 24.0 BP 134/62 Blood Pressure Location Lt brachial Position Sitting Pulse 76 Intake Visit Reasons: follow up Intake Note: follow up Sheep Herder Required: No Accompanied by: Self / Same As Patient Allergies lisinopril [LISINOPRIL] Allergy (Severe, Verified 09/21/23 12:35) ANGIOEDEMA morphine [MORPHINE] Allergy (Severe, Verified 09/21/23 12:35) ANAPHYLAXIS penicillin V Allergy (Intermediate, Verified 09/21/23 12:35) Itching cefaclor [From CECLOR] Allergy (Unknown, Verified 09/21/23 12:35) HIVES ciprofloxacin Allergy (Unknown, Verified 09/21/23 12:35) itchy codeine Allergy (Unknown, Verified 09/21/23 12:35) HIVES methylprednisolone Allergy (Unknown, Verified 09/21/23 12:35) Unknown nitrofurantoin Allergy (Unknown, Verified 09/21/23 12:35) Unknown olmesartan [Benicar] Allergy (Unknown, Verified 09/21/23 12:35) Unknown Penicillins Allergy (Unknown, Verified 09/21/23 12:35) HIVES Sulfa (Sulfonamide Antibiotics) Allergy (Unknown, Verified 09/21/23 12:35) HIVES hydromorphone [From Dilaudid] Adverse Reaction (Verified 09/21/23 12:35) Shakiness odansetron Allergy (Severe, Uncoded 09/21/23 12:35) Hives Metoprolol Succinate Allergy (Intermediate, Uncoded 09/21/23 12:35) Hives celcor Allergy (Unknown, Uncoded 09/21/23 12:35) itchy Gentamicin in Saline Allergy (Unknown, Uncoded 09/21/23 12:35) hives Gentamicin Sulfate Allergy (Unknown, Uncoded 09/21/23 12:35) hives Latex Allergy (Unknown, Uncoded 09/21/23 12:35) Itching latex Allergy (Unknown, Uncoded 09/21/23 12:35) Itching sulfonamides Allergy (Unknown, Uncoded 09/21/23 12:35) Unknown vioxx Allergy (Unknown, Uncoded 09/21/23 12:35) Itching Bicitra Adverse Reaction (Unknown, Uncoded 09/21/23 12:35) unknown Medication List - Last Reconciled 09/21/23 by Phoenix Silverman MD albuterol sulfate 2.5 mg inhalation Q2-4H PRN amiodarone 200 mg PO DAILY atorvastatin 20 mg PO BEDTIME beclomethasone diprop (AQ) (Beconase AQ) 1 spray intranasal BID ferrous sulfate 325 mg PO DAILY furosemide 20 mg PO TID gabapentin 300 mg PO BID mepolizumab (Nucala) 100 mg subcut QMONTH omeprazole 40 mg PO BID sennosides (senna) 17.2 mg PO DAILY PRN sitagliptin phosphate (Januvia) 100 mg PO DAILY spironolactone 25 mg PO BID warfarin 1 mg PO Q OTHER DAY warfarin 2.5 mg PO Q OTHER DAY HPI HPI Comments History of Present Illness Details Ruby returns for follow-up. In the past, she used to follow with [facility] but now she has switched her care to [place]. Has a history of cardiomyopathy/congestive heart failure, persistent atrial fibrillation, rheumatic heart disease- status post MVR 1990 for severe mitral stenosis. She has had a few hospitalizations for congestive heart failure. Most recently, few weeks back. At that time, she also had positive serology for entero/rhino virus. As she was not improving, she was sent to [facility] where it seems she underwent right heart catheterization. After diuretic adjustments, she was finally discharged home. Otherwise, she has a history of ovarian cancer in remission. Overall, she states that she is actually doing quite well. Breathing is just about her baseline. Leg swelling is also controlled. No other relevant symptoms at this time. [facility] Medical History (Updated 08/28/23 @ 09:42 by Kelli Espinoza NP-C) Secondary pulmonary arterial hypertension Ovarian cancer Tricuspid valve insufficiency, non-rheumatic Non-rheumatic aortic stenosis Persistent atrial fibrillation Surgical History H/O mitral valve replacement with mechanical valve Family History Mother Heart disease Father Heart disease Diabetes Social History Household Members: Family Housing: House Do you presently have visiting nurse or other home services: Yes Alcohol intake: never Patient Tobacco Use Status: Former Tobacco user Quit Date: 1990 Years Smoked: 4 +/- service: No Review of Systems Const Denies weakness ENT Denies dizziness Card Denies chest pain, Denies chest pain with activity, Denies syncope, Denies rapid heart rate, Denies pedal edema, Denies edema, Denies leg edema, Denies lightheadedness, Denies palpitations, Denies dyspnea, Denies dyspnea on exertion and Denies orthopnea Resp Denies cough, Denies dyspnea and Denies dyspnea on exertion GI Denies hematochezia and Denies change in stool character Musc Denies abnormal gait, Denies muscle cramps, Denies muscle weakness, Denies numbness, Denies radiating pain into limb and Denies tingling Neuro Denies abnormal gait, Denies dizziness, Denies syncope, Denies numbness, Denies tingling and Denies weakness Endo Denies palpitations Physical Exam Vital Signs: Last Vital Signs Pulse 76 09/21/23 12:33 BP 134/62 09/21/23 12:33 BMI result Body Mass Index 24.0 Last Vital Signs Temp 97.0 F 08/01/23 07:18 Pulse 84 08/01/23 07:25 Resp 20 08/01/23 07:25 BP 134/62 08/01/23 07:18 Pulse Ox 96 08/01/23 07:18 O2 Del Method Room Air 08/01/23 07:18 O2 Flow Rate 2 07/22/23 06:19 Oxygen Flow Rate 2 07/22/23 05:50 BMI result Body Mass Index 26.4 Const General: comfortable, no acute distress and tired appearing Orientation/consciousness: patient oriented x3 HEENT Other: Unremarkable Head: Yes normal to inspection Neck Neck: Yes normal visual inspection Chest Chest palpation & inspection: normal inspection of the chest Resp Auscultation: rhonchi, wheezes and diminished lung sounds Cardio Palpation: normal PMI Heart sounds: S1 normal heart sound present, S2 normal heart sound present, no gallops, Murmur heart sound present systolic II/ and at the right sternal border and no rubs GI Palpation (GI): Soft to palpation Back/Spine/Pelvis Other: unremarkable Skin General skin exam: no rashes or lesions noted Neuro General: patient oriented x3 Extrem Other: Trace to 1+ edema. General: Yes normal to inspection Psych Mental Status: mental status grossly normal Office Procedures EKG Details: EKG with atrial fibrillation at a rate of 76/Min. Lateral/anterolateral downsloping ST/T inversion. [id number], Complete Assessment & Plan Assessment & Plan (1) Acute on chronic systolic (congestive) heart failure: Code(s): I50.23 - Acute on chronic systolic (congestive) heart failure Plan: Clinically, seems mostly euvolemic. Continue current diuretic regimen. Cardiac BNP and BMP. In the most recent echocardiogram, LVEF of 25-30%. Myocardial perfusion imaging study from 2020 reported to have no ischemia; small mid inferior scar. (2) Persistent atrial fibrillation: Code(s): I48.19 - Other persistent atrial fibrillation Plan: Recently, she has been commenced on amiodarone for rate control. No changes made. Check TSH. Per history, intolerance to beta-blockers in the past. (3) H/O mitral valve replacement with mechanical valve: Code(s): Z95.2 - Presence of prosthetic heart valve Plan: No recent issues. (4) Non-rheumatic aortic stenosis: Code(s): I35.0 - Nonrheumatic aortic (valve) stenosis Plan: There is question of severe aortic stenosis but she is not exactly a good candidate for TAVR either. Clinically, she seems fairly compensated at this time and hence we will postpone as much possible. (5) Tricuspid valve insufficiency, non-rheumatic: Code(s): I36.1 - Nonrheumatic tricuspid (valve) insufficiency Plan: She does have significant tricuspid regurgitation on echocardiogram. Again poor candidate for any interventions like transcatheter edge to edge repair. We can consider in the future. Orders: Orders B Type Natriuretic Peptide Today I50.23 - Acute on chronic systolic (congestive) heart failure TSH reflex Free T4 Today I48.19 - Other persistent atrial fibrillation Basic Metabolic Panel Today I50.23 - Acute on chronic systolic (congestive) heart failure Coding Level of Care Code Est Pt Level 4 (24000) Diagnoses Acute on chronic systolic (congestive) heart failure I50.23 Persistent atrial fibrillation I48.19 H/O mitral valve replacement with mechanical valve Z95.2 Non-rheumatic aortic stenosis I35.0 Tricuspid valve insufficiency, non-rheumatic I36.1 CPT Codes EKG - CPT: 85963-[id number], Complete ([id number])
== END 2023-09-21 13:00 | disposition home or self-care (01) ==
PROVIDERS: PCP Internal Medicine; Visit Provider Internal Medicine
DX: I50.23 Acute on chronic systolic (congestive) heart failure (principal); I48.19 Other persistent atrial fibrillation; Z95.2 Presence of prosthetic heart valve; I35.0 Nonrheumatic aortic (valve) stenosis; I36.1 Nonrheumatic tricuspid (valve) insufficiency
CPT/HCPCS: 93010; 99214

== ENCOUNTER 2024-01-31 02:35 | Emergency (ER) | payer OTHER, SELFPAY ==
--- NOTE | ~2024-01-31 | XR_ITS ---
EXAMINATION: XR KNEE, LEFT CLINICAL INFORMATION: Pain and swelling. COMPARISON: None available. TECHNIQUE: Four views of the left knee. FINDINGS: The bony structures are heterogeneous/osteopenic. There is mild medial knee degenerative change with mild loss of joint space and minimal osteophyte formation. No fracture is seen. There appears to be soft tissue edema. XR/XR knee LT 2V IMPRESSION: 1. Mild degenerative changes. No fracture is seen. 2. Soft tissue edema. 3. The bony structures are heterogeneous/osteopenic.
[2024-01-31 02:39] VITALS: BP 118/78; PULSE 76; O2SAT 94
[2024-01-31 02:42] VITALS: BP 129/50; PULSE 74; RESP 18; TEMP 36.8; O2SAT 95; BMI 25.2
[2024-01-31 03:46] LABS: MANUAL DIFF FLAG NO
[2024-01-31 03:48] LABS: Basophils Absolute Auto 0.1 X10*3/uL (0.0-0.2); Basophils Percent Auto 1.8 % (0-2); Eosinophils Absolute Auto 0.2 X10*3/uL (0.0-0.4); Eosinophils Percent Auto 4.5 % (0-4); Hematocrit 27.2 % (37.0-47.0); Hemoglobin 8.5 g/dl (12.0-16.0); Imm Gran Abs Auto 0.01 X10*3/uL (0.00-0.03); Imm Gran Pct Auto 0.2 % (0.0-0.4); Lymphocytes Absolute Auto 0.8 X10*3/uL (1.2-4.9); Lymphocytes Percent Auto 16.8 % (20-40); Mean Corpuscular HGB Conc 31.3 g/dl (31.0-35.0); Mean Corpuscular Volume 89.5 fL (80.0-98.0); Mean Platelet Volume 8.2 fL (9.4-12.3); Monocytes Absolute Auto 0.4 X10*3/uL (0.1-1.2); Monocytes Percent Auto 8.4 % (2-11); Neutrophils Absolute Auto 3.3 x10*3/uL (2.0-8.3); Neutrophils Percent Auto 68.3 % (45-73); Platelet Count 180 X10*3/uL (160-400); Red Blood Count 3.04 X10*6/uL (4.20-5.50); Red Cell Distribution Width 18.5 % (11.0-16.0); White Blood Count 4.9 X10*3/uL (4.8-10.8)
[2024-01-31 03:53] LABS: INTERNATIONAL NORM RATIO 2.3 (0.9-1.1); Prothrombin Time 27.4 SEC (11.1-13.3)
--- NOTE | 2024-01-31 04:08 | ED_ITS ---
HPI - Extremity Problem General Chief complaint: Extremity Injury, Lower Stated complaint: leg pain and swelling Time Seen by Provider: 01/31/24 03:56 Source: patient, family, EMS and old records reviewed Mode of arrival: EMS Limitations: no limitations History of Present Illness ED Provider: JAYDA MURILLO Narrative: 64 yo female with PMH of biventricular failure EF 25-30% managed at [facility], asthma, pulm arterial HTN, anemia, CKD, MVR - mechanical valve on coumadin, persistent afib, spontaneous left leg hematoma she states she was at [facility] for 8 weeks told she could not walk has been at home now following up with PCP she has been on oral dilaudid then given recent Rx for one week oxycodone as she has pain in the left leg. The PCP told her that a surgeon was going to remove the hematoma. She notes the past four hours the leg is more painful and slightly more swollen though now new trauma. She has no pain medications to take at home. She is compliant with all of her other medications. MD Complaint: extremity pain and extremity swelling Onset (ago): month(s) (2) Pain Consistency: constant Location: left and lower extremity Quality: other (throbbing) Radiation: none Relieving factors: nothing Exacerbating factors: range of motion, weight bearing, walking and palpation Associated symptoms: other (edema to the leg) Context: other (severe pain and swelling post hematoma to the leg 2 months ago) Related Data Home Medications ?Medication ?Instructions ?Recorded ?Confirmed sitagliptin phosphate 100 mg 100 mg PO DAILY 11/16/22 09/21/23 tablet (Januvia) warfarin 2.5 mg tablet 2.5 mg PO Q OTHER DAY 11/16/22 09/21/23 omeprazole 40 mg capsule,delayed 40 mg PO BID 03/01/23 09/21/23 release beclomethasone diprop (AQ) 42 mcg 1 spray intranasal BID 06/14/23 09/21/23 (0.042 %) nasal spray (Beconase AQ) ferrous sulfate 325 mg (65 mg 325 mg PO DAILY 06/14/23 09/21/23 iron) tablet,delayed release gabapentin 300 mg capsule 300 mg PO BID 06/14/23 09/21/23 sennosides 8.6 mg tablet (senna) 17.2 mg PO DAILY PRN constipation 06/14/23 09/21/23 albuterol sulfate 2.5 mg/3 mL 2.5 mg inhalation Q2-4H PRN 07/22/23 09/21/23 (0.083 %) solution for nebulization Shortness Of Breath Or Wheezing mepolizumab 100 mg subcutaneous 100 mg subcut QMONTH 07/22/23 09/21/23 solution (Nucala) warfarin 1 mg tablet 1 mg PO Q OTHER DAY 07/22/23 09/21/23 atorvastatin 20 mg tablet 20 mg PO BEDTIME 08/28/23 09/21/23 furosemide 20 mg tablet 20 mg PO BID 11/07/23 Previous Rx's ?Medication ?Instructions ?Recorded spironolactone 25 mg tablet 25 mg PO BID #60 tabs 04/12/23 amiodarone 200 mg tablet 200 mg PO DAILY #30 tabs 08/24/23 hydromorphone 2 mg tablet 2 mg PO Q6H PRN pain #14 tabs 01/31/24 (Dilaudid) Allergies Allergy/AdvReac Type Severity Reaction Status Date / Time lisinopril [LISINOPRIL] Allergy Severe ANGIOEDEMA Verified 01/31/24 02:48 morphine [MORPHINE] Allergy Severe ANAPHYLAXIS Verified 01/31/24 02:48 penicillin V Allergy Intermediate Itching Verified 01/31/24 02:48 cefaclor [From CECLOR] Allergy Unknown HIVES Verified 01/31/24 02:48 ciprofloxacin Allergy Unknown itchy Verified 01/31/24 02:48 codeine Allergy Unknown HIVES Verified 01/31/24 02:48 methylprednisolone Allergy Unknown Unknown Verified 01/31/24 02:48 nitrofurantoin Allergy Unknown Unknown Verified 01/31/24 02:48 olmesartan [Benicar] Allergy Unknown Unknown Verified 01/31/24 02:48 Penicillins Allergy Unknown HIVES Verified 01/31/24 02:48 Sulfa (Sulfonamide Allergy Unknown HIVES Verified 01/31/24 02:48 Antibiotics) empagliflozin AdvReac Severe Confusion Verified 01/31/24 02:48 [From Jardiance] apixaban [From Eliquis] AdvReac Intermediate Nausea Verified 01/31/24 02:48 hydromorphone [From Dilaudid] AdvReac Shakiness Verified 01/31/24 02:48 odansetron Allergy Severe Hives Uncoded 09/21/23 12:35 Metoprolol Succinate Allergy Intermediate Hives Uncoded 09/21/23 12:35 celcor Allergy Unknown itchy Uncoded 09/21/23 12:35 Gentamicin in Saline Allergy Unknown hives Uncoded 09/21/23 12:35 Gentamicin Sulfate Allergy Unknown hives Uncoded 09/21/23 12:35 Latex Allergy Unknown Itching Uncoded 09/21/23 12:35 latex Allergy Unknown Itching Uncoded 09/21/23 12:35 sulfonamides Allergy Unknown Unknown Uncoded 09/21/23 12:35 vioxx Allergy Unknown Itching Uncoded 09/21/23 12:35 Bicitra AdvReac Unknown unknown Uncoded 09/21/23 12:35 Review of Systems 2 Review of Systems: Constitutional : No Fever, No Chills ENT/Mouth : No Ear Pain, No Hoarseness, No sore throat Eyes: No Eye Pain, No Swelling, No Redness, No Foreign Body Cardiovascular : No Chest Pain, No SOB Respiratory : No Cough, No Dyspnea Gastrointestinal : No Nausea, No Vomiting, No Diarrhea, No abdominal Pain Genitourinary : No Dysuria, No Hematuria Musculoskeletal : positive joint pain, No Myalgias, No Joint Swelling, pos leg pain, pos leg swelling Skin : No Skin lacerations, No rash Neuro : No Weakness, No Numbness, No Loss of Consciousness, No Dizziness, No Headache Psych : No Anxiety/Panic, No Depression All other systems reviewed and are negative [facility] Past Medical History Attestation statement: The following information was validated with the patient. Medical History Secondary pulmonary arterial hypertension Ovarian cancer Tricuspid valve insufficiency, non-rheumatic Non-rheumatic aortic stenosis Persistent atrial fibrillation Surgical History H/O mitral valve replacement with mechanical valve Family History Family History Mother Heart disease Father Heart disease Diabetes Social History Social History Household Members: Family Housing: House Do you presently have visiting nurse or other home services: Yes Alcohol intake: never Patient Tobacco Use Status: Former Tobacco user Years Smoked: 4 +/- Smoked in Last 30 Days: No Use of substances other than those prescribed or required for medical reasons: No Advance Directives: No Advance Directives Information Provided: Yes Do you have a plan to hurt others: No Plan service: No Physical Exam 2 Vital Signs: Vital Signs: Last Vital Signs Temp 98.2 F 01/31/24 02:42 Pulse 74 01/31/24 02:42 Resp 18 01/31/24 02:42 BP 129/50 L 01/31/24 02:42 Pulse Ox 95 01/31/24 02:42 O2 Del Method Room Air 01/31/24 02:42 BMI result Body Mass Index 25.2 Appearance: Alert. Oriented X3. rying at first in pain prior to oral dose of pain medications. mild acute distress. refusing to sit down standing up and walking on the leg will not lay down on stretcher for exam. Eyes: Pupils equal, round and reactive to light. ENT: Pharynx normal. Neck: Normal inspection. Neck supple. CVS: Normal heart rate and rhythm. Pulses normal. Respiratory: No respiratory distress. Breath sounds normal. Abdomen: Soft and nontender. Skin: Skin warm and dry. Normal skin color. Normal skin turgor. Extremities: left leg 1-2+ pitting edema ankle to thigh no warmth no redness it is soft and compartments are soft and compressible, R leg is 1+ around ankle lower leg. She is ambulating around and refusing to lay down she states she does not want to lay down and feels more comfortable standing I told her she needs to elevate her legs but she refuses on multiple occasions. Neuro: Oriented X 3. No motor deficit. No sensory deficit. Medications Administered Discontinued Medications Generic Name Dose Route Start Last Admin Trade Name Ely PRN Reason Stop Dose Admin Hydromorphone HCl 4 mg 01/31/24 04:04 01/31/24 04:13 Hydromorphone Hcl 4 Mg Tablet PO 01/31/24 04:05 4 mg ONCE ONE Administration Medical Decision Making Medical Decision Making MDM Narrative: 64 yo female with PMH of biventricular failure EF 25-30% managed at [facility], asthma, pulm arterial HTN, anemia, CKD, MVR - mechanical valve on coumadin, persistent afib, spontaneous left leg hematoma she comes in stating her pain is getting worse there is no signs of infection on the leg she has swelling L more than R but she is on coumadin and I do not suspect DVT it is not tense or discolored to suggest hematoma. She will not elevate it which is weird given her c/o known hematoma and need to rest and elevate. There is no signs of vascular compromise. I offered oral dilaudid and labs/xray no new trauma. We talked about labs and no real recent from July and the patient initially stated she would wait for me to compare to [facility] but then stated her and her had to leave. They will call PCP today. They left prior to full eval and comparison and are aware that labs are in indeterminate range. Differential Diagnosis Differential Diagnoses: The differential diagnosis associated with the presentation includes leg swelling hematoma chronic pain Admission/Observation Consideration of admission/observation: Escalation of care including admission/observation considered patient requested to leave Lab Data MDM Lab Attestation statement: I reviewed the patient's lab results. 01/31/24 03:42 01/31/24 03:42 Labs: Lab Results 01/31/24 Range/Units 03:42 WBC 4.9 (4.8-10.8) X10*3/uL RBC 3.04 L (4.20-5.50) X10*6/uL Hgb 8.5 L (12.0-16.0) g/dl Hct 27.2 L (37.0-47.0) % MCV 89.5 (80.0-98.0) fL MCH 28.0 (27.0-33.0) pg MCHC 31.3 (31.0-35.0) g/dl RDW 18.5 H (11.0-16.0) % Plt Count 180 (160-400) X10*3/uL MPV 8.2 L (9.4-12.3) fL Immature Gran % (Auto) 0.2 (0.0-0.4) % Neut % (Auto) 68.3 (45-73) % Lymph % (Auto) 16.8 L (20-40) % Ector % (Auto) 8.4 (2-11) % Eos % (Auto) 4.5 H (0-4) % Baso % (Auto) 1.8 (0-2) % Lymph # (Auto) 0.8 L (1.2-4.9) X10*3/uL Ector # (Auto) 0.4 (0.1-1.2) X10*3/uL Eos # (Auto) 0.2 (0.0-0.4) X10*3/uL Baso # (Auto) 0.1 (0.0-0.2) X10*3/uL Abs Immat Gran (auto) 0.01 (0.00-0.03) X10*3/uL Absolute Neuts (auto) 3.3 (2.0-8.3) x10*3/uL Absolute Nucleated RBC 0.000 (0.0-0.012) X10*3/uL Nucleated RBC % (auto) 0.0 (0.0-0.2) /100WBC PT 27.4 H D (11.1-13.3) SEC INR 2.3 H (0.9-1.1) Sodium 141 (135-145) mmol/L Potassium 4.3 (3.3-5.1) mmol/L Chloride 104 (96-108) mmol/L Carbon Dioxide 25 (22-29) mmol/L Anion Gap 16 (12-20) BUN 26 H (9-16) mg/dL Creatinine 1.65 H (0.5-1.4) mg/dL Estim Creat Clear Calc 30.3 Estimated GFR 31 Random Glucose 108 (60-115) mg/dL Calcium 8.9 (8.4-10.2) mg/dL Total Bilirubin 1.0 (0.0-1.0) mg/dL AST 17 (5-31) U/L ALT 9 (0-31) U/L Alkaline Phosphatase 168 H (39-117) U/L B-Natriuretic Peptide 970 H (<100) pg/mL Total Protein 6.6 (6.5-8.0) g/dL Albumin 3.8 (3.5-5.0) g/dL Independent Interpretation I performed an independent interpretation of an: Plain X-Ray (no fx) Radiology Impression Discussion of test interpretation with radiology: I have reviewed the radiologist's reading. Independent Historian Clinical information obtained from an independent historian. History obtained from or confirmed by: Spouse External Record Review External record reviewed: Inpatient record Discharge Plan Discharge Clinical Impression: Left leg pain Patient Disposition: Home, Self-Care Instructions: Leg Pain (ED) Additional Instructions: it was advised you wait on records from [facility] from comparison - you did not stay for this you need to call your doctor today please return for worsening pain, redness, fevers, numbness, weakness or any other concerns call the surgeon at [facility] your hemoglobin was 8.5, Cr. 1.65, INR 2.3, BNP 970 your leg could have expanding hematoma, start of infection or any other new issue this needs further care Prescriptions: New hydromorphone [Dilaudid] 2 mg tablet 2 mg PO Q6H PRN (Reason: pain) Qty: 14 0RF Rx Instructions: Partial Fill upon patient request. No Action spironolactone 25 mg tablet 25 mg PO BID Qty: 60 5RF amiodarone 200 mg tablet 200 mg PO DAILY Qty: 30 5RF furosemide 20 mg tablet 20 mg PO BID gabapentin 300 mg capsule 300 mg PO BID sennosides [senna] 8.6 mg tablet 17.2 mg PO DAILY PRN (Reason: constipation) Beconase AQ 42 mcg (0.042 %) spray,non-aerosol 1 spray intranasal BID ferrous sulfate 325 mg (65 mg iron) tablet,delayed release (DR/EC) 325 mg PO DAILY albuterol sulfate 2.5 mg /3 mL (0.083 %) solution for nebulization 2.5 mg inhalation Q2-4H PRN (Reason: Shortness Of Breath Or Wheezing) warfarin 1 mg tablet 1 mg PO Q OTHER DAY Nucala 100 mg recon soln 100 mg subcut QMONTH warfarin 2.5 mg tablet 2.5 mg PO Q OTHER DAY Januvia 100 mg tablet 100 mg PO DAILY omeprazole 40 mg capsule,delayed release(DR/EC) 40 mg PO BID atorvastatin 20 mg tablet 20 mg PO BEDTIME Print Language: Yi
[2024-01-31 04:16] LABS: Alanine Aminotransferase 9 U/L (0-31); Albumin Level 3.8 g/dL (3.5-5.0); Alkaline Phosphatase 168 U/L (39-117); Anion Gap 16 (12-20); Aspartate Amino Transferase 17 U/L (5-31); Blood Urea Nitrogen 26 mg/dL (9-16); Calcium 8.9 mg/dL (8.4-10.2); Carbon Dioxide 25 mmol/L (22-29); Chloride 104 mmol/L (96-108); Creatinine Clr Calc Pharmacy 30.3; Estimated Glomerular Filt Rate 31; Glucose Random 108 mg/dL (60-115); Potassium 4.3 mmol/L (3.3-5.1); Sodium 141 mmol/L (135-145); Total Protein 6.6 g/dL (6.5-8.0)
[2024-01-31 04:20] LABS: B Type Natriuretic Peptide 970 pg/mL (<100)
[2024-01-31 04:46] VITALS: BP 118/37; PULSE 80; RESP 16; TEMP 36.5; O2SAT 99
[2024-01-31 04:47] VITALS: BP 118/37; PULSE 80; RESP 16; TEMP 36.5; O2SAT 99
== END 2024-01-31 04:47 | disposition home or self-care (01) ==
PROVIDERS: Emergency Provider Emergency Medicine; PCP Internal Medicine
DX: M79.605 Pain in left leg (principal); R60.0 Localized edema; I48.91 Unspecified atrial fibrillation; Z79.01 Long term (current) use of anticoagulants
CPT/HCPCS: 36415; 73560; 80053; 83880; 85025; 85610; 99283; 99284

== ENCOUNTER 2024-03-13 09:23 | Outpatient (AMB) | payer OTHER, SELFPAY ==
[2024-03-13 09:27] VITALS: BMI 25.2
--- NOTE | 2024-03-13 09:27 | MHC.OFFVIS ---
Vital Signs 03/13/24 09:27 Height 5 ft 3 in Weight 142 lb BMI 25.2 Intake Visit Reasons: OV Right Middle Trigger Intake Note: Ruby is a 64 yo right hand dominant female who presents today for a new onset of right middle finger trigger. Patient denies numbness or tingling. Patient would like discuss injections today. Reports she had a right middle finger trigger injection about 5 months ago at [facility]. Denies prior injuries or surgeries to the right hand. Allergies lisinopril [LISINOPRIL] Allergy (Severe, Verified 03/13/24 09:27) ANGIOEDEMA morphine [MORPHINE] Allergy (Severe, Verified 03/13/24 09:27) ANAPHYLAXIS penicillin V Allergy (Intermediate, Verified 03/13/24 09:27) Itching cefaclor [From CECLOR] Allergy (Unknown, Verified 03/13/24 09:27) HIVES ciprofloxacin Allergy (Unknown, Verified 03/13/24 09:27) itchy codeine Allergy (Unknown, Verified 03/13/24 09:27) HIVES methylprednisolone Allergy (Unknown, Verified 03/13/24 09:27) Unknown nitrofurantoin Allergy (Unknown, Verified 03/13/24 09:27) Unknown olmesartan [Benicar] Allergy (Unknown, Verified 03/13/24 09:27) Unknown Penicillins Allergy (Unknown, Verified 03/13/24 09:27) HIVES Sulfa (Sulfonamide Antibiotics) Allergy (Unknown, Verified 03/13/24 09:27) HIVES empagliflozin [From Jardiance] Adverse Reaction (Severe, Verified 03/13/24 09:27) Confusion apixaban [From Eliquis] Adverse Reaction (Intermediate, Verified 03/13/24 09:27) Nausea hydromorphone [From Dilaudid] Adverse Reaction (Verified 03/13/24 09:27) Shakiness odansetron Allergy (Severe, Uncoded 03/13/24 09:27) Hives Metoprolol Succinate Allergy (Intermediate, Uncoded 03/13/24 09:27) Hives celcor Allergy (Unknown, Uncoded 03/13/24 09:27) itchy Gentamicin in Saline Allergy (Unknown, Uncoded 03/13/24 09:27) hives Gentamicin Sulfate Allergy (Unknown, Uncoded 03/13/24 09:27) hives Latex Allergy (Unknown, Uncoded 03/13/24 09:27) Itching latex Allergy (Unknown, Uncoded 03/13/24 09:27) Itching sulfonamides Allergy (Unknown, Uncoded 03/13/24 09:27) Unknown vioxx Allergy (Unknown, Uncoded 03/13/24 09:27) Itching Bicitra Adverse Reaction (Unknown, Uncoded 03/13/24 09:27) unknown HPI HPI OV Right Middle Trigger: Details: Ruby is a 64 year old right hand dominant woman who presents with complaints of a right middle trigger finger. She complains of painful locking & catching of the middle finger. She reports some relief from a [facility]. She would like to discuss treatment options. She has a hx of CHF and Afib, and is on Warfarin. She says she was recently discharged from a 6-week stay in the hospital for CHF. She says she developed a hematoma in her leg and has difficulty walking due to being bedridden for so long. [facility] Medical History Secondary pulmonary arterial hypertension Ovarian cancer Tricuspid valve insufficiency, non-rheumatic Non-rheumatic aortic stenosis Persistent atrial fibrillation Surgical History H/O mitral valve replacement with mechanical valve Family History Mother Heart disease Father Heart disease Diabetes Social History Household Members: Family Housing: House Do you presently have visiting nurse or other home services: Yes Alcohol intake: never Patient Tobacco Use Status: Former Tobacco user Years Smoked: 4 +/- service: No Review of Systems Const All systems reviewed & are unremarkable except as noted in HPI and below Physical Exam Vital Signs: BMI result Body Mass Index 25.2 Const General: cooperative, healthy appearing and no acute distress Orientation/consciousness: patient oriented x3 HEENT Head: Yes normocephalic and Yes atraumatic Eyes EOM: EOMs intact bilaterally Resp Effort & Inspection: normal respiratory effort and able to speak in complete sentences Cardio Jugular venous distension: no JVD Skin General skin exam: turgor normal Rashes: no rashes Neuro General: patient oriented x3 Extrem Other: Evaluation of Right Upper Extremity: The patient is alert, oriented, and in no acute distress Neuro: Median, Ulnar, Radial nerves motor and sensory intact and sensation is normal to the tips of all digits Vascular: Cap refill brisk ROM: She can make a fist and extend all her digits Visible and palpable locking and catching of the middle finger Tender over the middle finger a1 mauricio Skin: No lacerations or abrasions. General: No Ecchymosis. No Erythema or evidence of infection. Psych Appearance: grossly normal Affect: normal affect Attitude: cooperative Office Procedures Fracture Care Details: No fracture, injection Fracture Billing Code: Fracture Billing Code Assessment & Plan Assessment & Plan (1) Trigger finger, right middle finger: Code(s): M65.331 - Trigger finger, right middle finger Category: Medical Plan Assessment & Plan: 1. Right middle finger trigger finger, S/P injection Date of injection: ~09/2023 at an outside clinic I educated her about this condition I discussed operative and non-operative treatment options The patient would like to proceed with an injection today Injection #1: The risks and benefits of a steroid injection including but not limited to risk of damage to blood vessels, nerves, tendons, infection, skin bleaching, failure to improve symptoms, increased pain, and possible need for further injections or other intervention were discussed with the patient and the patient wishes to proceed with the steroid injection. Once consent was obtained, I sterilely prepped the area over the A1 mauricio of the flexor tendon sheath of the Right middle finger. I then injected the flexor tendon sheath with a combination of 1 mL of dexamethasone (4mg/ml), and 1% lidocaine. The patient tolerated the procedure well with no complications. If the patient continues to have locking and catching 4-6 weeks following this injection, they may call to schedule appointment to discuss alternative treatment options Follow-up prn Scribed for Sofi Méndez MD by [employer]fe medical or surgical instrument maker, on 03/13/24 at 9:50 AM, EST. Coding Level of Care Code New Pt Level 3 (86746) Diagnoses Trigger finger, right middle finger M65.331 CPT Codes Fracture Care - Fracture Billing Code: Fracture Billing Code ([id number])
== END 2024-03-13 10:06 | disposition home or self-care (01) ==
PROVIDERS: PCP Internal Medicine; Visit Provider Orthopaedic Surgery
DX: M65.331 Trigger finger, right middle finger (principal)
CPT/HCPCS: 20550; 99213

== ENCOUNTER → 2024-03-13 09:23 | Outpatient (BNVA) | payer OTHER, SELFPAY | PROVIDERS: PCP Internal Medicine; Visit Provider Orthopaedic Surgery | DX: M65.331 Trigger finger, right middle finger (principal) | CPT/HCPCS: 20550; 99212; J1100 ==

== ENCOUNTER 2024-06-11 09:50 | Outpatient (AMB) | payer OTHER, SELFPAY ==
--- NOTE | 2024-06-11 09:52 | MHC.OFFVIS ---
Vital Signs 06/11/24 09:58 Height 5 ft 3 in Weight 142 lb BMI 25.2 Intake Visit Reasons: OV- Right Middle Trigger/ discuss surgery Intake Note: Ruby is a 64 yo right hand dominant female who presents today for to discuss right middle finger trigger release. Patient reports last injection administered 03/13/24 did not provide her relief. She would like to discuss surgery today. Allergies lisinopril [LISINOPRIL] Allergy (Severe, Verified 06/11/24 09:52) ANGIOEDEMA morphine [MORPHINE] Allergy (Severe, Verified 06/11/24 09:52) ANAPHYLAXIS penicillin V Allergy (Intermediate, Verified 06/11/24 09:52) Itching cefaclor [From CECLOR] Allergy (Unknown, Verified 06/11/24 09:52) HIVES ciprofloxacin Allergy (Unknown, Verified 06/11/24 09:52) itchy codeine Allergy (Unknown, Verified 06/11/24 09:52) HIVES methylprednisolone Allergy (Unknown, Verified 06/11/24 09:52) Unknown nitrofurantoin Allergy (Unknown, Verified 06/11/24 09:52) Unknown olmesartan [Benicar] Allergy (Unknown, Verified 06/11/24 09:52) Unknown Penicillins Allergy (Unknown, Verified 06/11/24 09:52) HIVES Sulfa (Sulfonamide Antibiotics) Allergy (Unknown, Verified 06/11/24 09:52) HIVES empagliflozin [From Jardiance] Adverse Reaction (Severe, Verified 06/11/24 09:52) Confusion apixaban [From Eliquis] Adverse Reaction (Intermediate, Verified 06/11/24 09:52) Nausea hydromorphone [From Dilaudid] Adverse Reaction (Verified 06/11/24 09:52) Shakiness odansetron Allergy (Severe, Uncoded 06/11/24 09:52) Hives Metoprolol Succinate Allergy (Intermediate, Uncoded 06/11/24 09:52) Hives celcor Allergy (Unknown, Uncoded 06/11/24 09:52) itchy Gentamicin in Saline Allergy (Unknown, Uncoded 06/11/24 09:52) hives Gentamicin Sulfate Allergy (Unknown, Uncoded 06/11/24 09:52) hives Latex Allergy (Unknown, Uncoded 06/11/24 09:52) Itching latex Allergy (Unknown, Uncoded 06/11/24 09:52) Itching sulfonamides Allergy (Unknown, Uncoded 06/11/24 09:52) Unknown vioxx Allergy (Unknown, Uncoded 06/11/24 09:52) Itching Bicitra Adverse Reaction (Unknown, Uncoded 06/11/24 09:52) unknown HPI HPI OV- Right Middle Trigger/ discuss surgery: Details: Ruby is a 64 year old right hand dominant woman who returns to discuss her right middle trigger finger. She complains of painful locking & catching of the middle finger. She says she found no relief from her previous injection from 03/13/24. She would like to discuss surgery She has a hx of CHF and Afib, and is on Warfarin. She is a Diabetic, which she says is well-controlled, and she has asthma. [facility] Medical History Secondary pulmonary arterial hypertension Ovarian cancer Tricuspid valve insufficiency, non-rheumatic Non-rheumatic aortic stenosis Persistent atrial fibrillation Surgical History H/O mitral valve replacement with mechanical valve Family History Mother Heart disease Father Heart disease Diabetes Social History Household Members: Family Housing: House Do you presently have visiting nurse or other home services: Yes Alcohol intake: never Patient Tobacco Use Status: Former Tobacco user Years Smoked: 4 +/- service: No Review of Systems Const All systems reviewed & are unremarkable except as noted in HPI and below Physical Exam Vital Signs: BMI result Body Mass Index 25.2 Const General: no acute distress and alert Orientation/consciousness: patient oriented x3 Neuro General: patient oriented x3 Extrem Other: Evaluation of Right Upper Extremity: The patient is alert, oriented, and in no acute distress Neuro: Median, Ulnar, Radial nerves motor and sensory intact and sensation is normal to the tips of all digits Vascular: Cap refill brisk ROM: She can make a fist and extend all her digits Visible and palpable locking and catching of the middle finger Tender over the middle finger a1 mauricio Psych Appearance: grossly normal Affect: normal affect Attitude: cooperative Assessment & Plan Assessment & Plan (1) Trigger finger, right middle finger: Code(s): M65.331 - Trigger finger, right middle finger Category: Medical (2) Chronic systolic heart failure: Code(s): I50.22 - Chronic systolic (congestive) heart failure Category: Medical (3) Diabetes mellitus: Code(s): E11.9 - Type 2 diabetes mellitus without complications Category: Medical Plan Assessment & Plan: 1. Right middle finger trigger finger, S/P repeat injection Date of injections: 03/13/24 by me, ~09/2023 at an outside clinic I educated her about this condition I discussed operative and non-operative treatment options As she had no relief from her most recent injection, the patient would like to proceed with surgery The risks and benefits of operative treatment were discussed with the patient and the patient wishes to proceed with surgery. These risks include, but are not limited to risk of damage to blood vessels, nerves, tendons, infection, recurrence, incomplete relief of preoperative symptoms, persistent pain, possible need for further surgery and the risks associated with regional blocks and anesthesia. The plan is to take the patient to the operating room sometime in the next few weeks for the following procedures: 1. Right middle finger trigger release, under local All of the preoperative paperwork including the consent was reviewed today. All the patient's questions were answered. The patient understands that they will be contacted by our neurological surgery teacher soon to schedule this procedure She denies lung, kidney issues She has a hx of CHF and Afib, and is on Warfarin She is a Diabetic and says this is well-controlled. Her most recent HgA1c was done last month and was ~6.4. She is on Januvia She has a Hx of asthma She is on Dilaudid Scribed for Sofi Méndez MD by Steffen Wolfe medical sales representative, on 06/11/24 at 10:20 AM, EST. Coding Level of Care Code Est Pt Level 4 (45490) Diagnoses Trigger finger, right middle finger M65.331 Chronic systolic heart failure I50.22 Diabetes mellitus E11.9
[2024-06-11 09:58] VITALS: BMI 25.2
== END 2024-06-11 12:30 | disposition home or self-care (01) ==
PROVIDERS: PCP Internal Medicine; Visit Provider Orthopaedic Surgery
DX: M65.331 Trigger finger, right middle finger (principal); I50.22 Chronic systolic (congestive) heart failure; E11.9 Type 2 diabetes mellitus without complications
CPT/HCPCS: 99214

== ENCOUNTER → 2024-06-11 09:50 | Outpatient (BNVA) | payer OTHER, SELFPAY | PROVIDERS: PCP Internal Medicine; Visit Provider Orthopaedic Surgery | DX: M65.331 Trigger finger, right middle finger (principal); I50.22 Chronic systolic (congestive) heart failure; E11.9 Type 2 diabetes mellitus without complications | CPT/HCPCS: 99212 ==

== ENCOUNTER 2024-08-22 23:57 | Emergency (ER) | payer OTHER, SELFPAY ==
--- NOTE | ~2024-08-22 | XR_ITS ---
CLINICAL HISTORY: pain ?compression fx 3 views lumbar spine Comparison: None Findings: Normal vertebral body alignment. There are chronic appearing compression fractures at T12 and L1. There may be spondylolysis at L5-S1. No significant degenerative change. There is generalized bony demineralization. Possible fecal impaction in the rectosigmoid. Suspect calcified thoracic lymph nodes. IMPRESSION: 1. Likely chronic compression fractures T12 and L1. 2. Generalized bony demineralization. 3. Suspect bilateral spondylolysis at L5-S1. 4. Suspect fecal impaction in the rectosigmoid. This document has been electronically signed by: Juan J Morrison MD on 08/23/2024 02:01:13
--- NOTE | 2024-08-23 | ECG_ITS ---
Test Reason : CP Blood Pressure : */* mmHG Vent. Rate : 94 BPM Atrial Rate : * BPM P-R Int : * ms QRS Dur : 114 ms QT Int : 418 ms P-R-T Axes : * 97 99 degrees QTcB Int : 522 ms Atrial fibrillation with premature ventricular or aberrantly conducted complexes Rightward axis ST & T wave abnormality, consider lateral ischemia Prolonged QT Abnormal ECG When compared with ECG of 22-Jul-2023 05:57, No significant change was found Referred By: Generic ED Physician Electronically Signed By: Kel Fair
[2024-08-23 00:22] VITALS: BP 142/78; BP 154/86; PULSE 98; PULSE 99; RESP 18; TEMP 36.9; O2SAT 95; O2SAT 98; BMI 19.4
[2024-08-23 00:53] LABS: Basophils Absolute Auto 0.1 X10*3/uL (0.0-0.2); Basophils Percent Auto 0.7 % (0-2); Eosinophils Absolute Auto 0.1 X10*3/uL (0.0-0.4); Eosinophils Percent Auto 1.5 % (0-4); Hemoglobin 9.7 g/dl (12.0-16.0); Imm Gran Abs Auto 0.02 X10*3/uL (0.00-0.03); Imm Gran Pct Auto 0.3 % (0.0-0.4); Lymphocytes Absolute Auto 0.6 X10*3/uL (1.2-4.9); Lymphocytes Percent Auto 7.8 % (20-40); MANUAL DIFF FLAG NO; Mean Corpuscular HGB Conc 33.4 g/dl (31.0-35.0); Mean Corpuscular Hemoglobin 30.8 pg (27.0-33.0); Mean Corpuscular Volume 92.1 fL (80.0-98.0); Mean Platelet Volume 8.5 fL (9.4-12.3); Monocytes Absolute Auto 0.8 X10*3/uL (0.1-1.2); Monocytes Percent Auto 10.2 % (2-11); Neutrophils Percent Auto 79.5 % (45-73); Platelet Count 124 X10*3/uL (160-400); Red Blood Count 3.15 X10*6/uL (4.20-5.50); Red Cell Distribution Width 16.2 % (11.0-16.0); White Blood Count 7.6 X10*3/uL (4.8-10.8)
--- NOTE | 2024-08-23 01:10 | ED_ITS ---
HPI - General Adult General Chief complaint: General Medical Stated complaint: bilat hip & back pain post dialysis x1day & mildCP Time Seen by Provider: 08/23/24 01:09 Source: patient Mode of arrival: ambulatory Limitations: no limitations History of Present Illness ED Provider: HPI narrative: Patient has chronic back pain on oxycodone on dialysis had dialysis yesterday comes here with pain is still continuing which is going on for more than 2 months no recent fall also complaining of pain in the legs Related Data Home Medications ?Medication ?Instructions ?Recorded ?Confirmed sitagliptin phosphate 100 mg 100 mg PO DAILY 11/16/22 09/21/23 tablet (Januvia) beclomethasone diprop (AQ) 42 mcg 1 spray intranasal BID 06/14/23 09/21/23 (0.042 %) nasal spray (Beconase AQ) ferrous sulfate 325 mg (65 mg 325 mg PO DAILY 06/14/23 09/21/23 iron) tablet,delayed release gabapentin 300 mg capsule 300 mg PO BID 06/14/23 09/21/23 sennosides 8.6 mg tablet (senna) 17.2 mg PO DAILY PRN constipation 06/14/23 09/21/23 albuterol sulfate 2.5 mg/3 mL 2.5 mg inhalation Q2-4H PRN 07/22/23 09/21/23 (0.083 %) solution for nebulization Shortness Of Breath Or Wheezing mepolizumab 100 mg subcutaneous 100 mg subcut QMONTH 07/22/23 09/21/23 solution (Nucala) atorvastatin 20 mg tablet 20 mg PO BEDTIME 08/28/23 09/21/23 Previous Rx's ?Medication ?Instructions ?Recorded hydromorphone 2 mg tablet 2 mg PO Q6H PRN pain #14 tabs 01/31/24 (Dilaudid) lidocaine 4 % topical patch 1 patch topical DAILY PRN pain #10 08/23/24 ea Allergies Allergy/AdvReac Type Severity Reaction Status Date / Time lisinopril [LISINOPRIL] Allergy Severe ANGIOEDEMA Verified 08/23/24 00:29 morphine [MORPHINE] Allergy Severe ANAPHYLAXIS Verified 08/23/24 00:29 penicillin V Allergy Intermediate Itching Verified 08/23/24 00:29 cefaclor [From CECLOR] Allergy Unknown HIVES Verified 08/23/24 00:29 ciprofloxacin Allergy Unknown itchy Verified 08/23/24 00:29 codeine Allergy Unknown HIVES Verified 08/23/24 00:29 methylprednisolone Allergy Unknown Unknown Verified 08/23/24 00:29 nitrofurantoin Allergy Unknown Unknown Verified 08/23/24 00:29 olmesartan [Benicar] Allergy Unknown Unknown Verified 08/23/24 00:29 Penicillins Allergy Unknown HIVES Verified 08/23/24 00:29 Sulfa (Sulfonamide Allergy Unknown HIVES Verified 08/23/24 00:29 Antibiotics) empagliflozin AdvReac Severe Confusion Verified 08/23/24 00:29 [From Jardiance] apixaban [From Eliquis] AdvReac Intermediate Nausea Verified 08/23/24 00:29 hydromorphone [From Dilaudid] AdvReac Shakiness Verified 08/23/24 00:29 odansetron Allergy Severe Hives Uncoded 08/23/24 00:29 Metoprolol Succinate Allergy Intermediate Hives Uncoded 08/23/24 00:29 celcor Allergy Unknown itchy Uncoded 08/23/24 00:29 Gentamicin in Saline Allergy Unknown hives Uncoded 08/23/24 00:29 Gentamicin Sulfate Allergy Unknown hives Uncoded 08/23/24 00:29 Latex Allergy Unknown Itching Uncoded 08/23/24 00:29 latex Allergy Unknown Itching Uncoded 08/23/24 00:29 sulfonamides Allergy Unknown Unknown Uncoded 08/23/24 00:29 vioxx Allergy Unknown Itching Uncoded 08/23/24 00:29 Bicitra AdvReac Unknown unknown Uncoded 08/23/24 00:29 Review of Systems 2 Review of Systems: Yes all other systems are reviewed and are negative PMFSH Past Medical History Medical History Secondary pulmonary arterial hypertension Ovarian cancer Tricuspid valve insufficiency, non-rheumatic Non-rheumatic aortic stenosis Persistent atrial fibrillation Surgical History H/O mitral valve replacement with mechanical valve Family History Family History Mother Heart disease Father Heart disease Diabetes Social History Social History Household Members: Family Housing: House Do you presently have visiting nurse or other home services: Yes Alcohol intake: never Patient Tobacco Use Status: Former Tobacco user Years Smoked: 4 +/- Advance Directives: Yes Advance Directives on File: Yes Advance Directives Date on File: 10/23/23 Do you have a plan to hurt others: No Plan service: No Physical Exam ED Vital Signs: Vital Signs - 24 hr 08/23/24 00:22 08/23/24 02:39 08/23/24 02:39 Temperature 98.4 F 98.7 F 98.7 F Pulse Rate 99 83 83 Respiratory Rate 18 20 20 Blood Pressure 154/86 H 144/62 H 144/62 H Pulse Oximetry 95 96 96 Oxygen Delivery Method Room Air Room Air Room Air BMI result Body Mass Index 19.4 Appearance: Alert. Oriented X3. No acute distress. Eyes: PERRLA, No Nystagmus ENT: Pharynx normal. Oral Mucosa moist Neck: Normal inspection. Neck supple. CVS: Normal heart rate and rhythm. Pulses normal. Respiratory: No respiratory distress. Equal air entry bilateral, no wheezing/rales/rhonchi Shiley catheter in place in left side Abdomen: Soft and nontender. Bowel sounds are present, no mass palpable, no CVA tenderness Skin: Skin warm and dry. Normal skin color. Normal skin turgor. Extremities: No lower extremity edema. No calf tenderness Back: Diffuse tenderness in lumbar spine area SLR negative bilaterally Neuro: Oriented X 3. No motor deficit. No sensory deficit.No cerebellar signs , cranial nerves II-XII intact Medications Administered Discontinued Medications Generic Name Dose Route Start Last Admin Trade Name Freq PRN Reason Stop Dose Admin Hydromorphone HCl 1 mg 08/23/24 01:59 08/23/24 02:03 Hydromorphone Hcl 2 Mg Tablet PO 08/23/24 02:00 Not Given ONCE ONE Hydromorphone HCl 2 mg 08/23/24 02:01 08/23/24 02:02 Hydromorphone Hcl 2 Mg Tablet PO 08/23/24 02:02 2 mg ONCE ONE Administration Magnesium Hydroxide 30 ml 08/23/24 02:00 08/23/24 02:06 Milk Of Magnesia 30 Ml Oral.Susp PO 08/23/24 02:01 30 ml NOW ONE Administration Medical Decision Making Medical Decision Making [facility] Narrative: Patient has chronic low back pain on oxycodone comes here for similar pain no recent fall x-ray showed T12 chronic compression fracture patient is ambulatory will discharge patient home advised to follow up with PCP Lab Data [facility] Lab Attestation statement: I reviewed the patient's lab results. 08/23/24 00:40 08/23/24 00:40 Labs: Lab Results 08/23/24 Range/Units 00:40 WBC 7.6 (4.8-10.8) X10*3/uL RBC 3.15 L (4.20-5.50) X10*6/uL Hgb 9.7 L (12.0-16.0) g/dl Hct 29.0 L (37.0-47.0) % MCV 92.1 (80.0-98.0) fL MCH 30.8 (27.0-33.0) pg MCHC 33.4 (31.0-35.0) g/dl RDW 16.2 H (11.0-16.0) % Plt Count 124 L D (160-400) X10*3/uL MPV 8.5 L (9.4-12.3) fL Immature Gran % (Auto) 0.3 (0.0-0.4) % Neut % (Auto) 79.5 H (45-73) % Lymph % (Auto) 7.8 L (20-40) % Woodruff % (Auto) 10.2 (2-11) % Eos % (Auto) 1.5 (0-4) % Baso % (Auto) 0.7 (0-2) % Lymph # (Auto) 0.6 L (1.2-4.9) X10*3/uL Woodruff # (Auto) 0.8 (0.1-1.2) X10*3/uL Eos # (Auto) 0.1 (0.0-0.4) X10*3/uL Baso # (Auto) 0.1 (0.0-0.2) X10*3/uL Abs Immat Gran (auto) 0.02 (0.00-0.03) X10*3/uL Absolute Neuts (auto) 6.0 (2.0-8.3) x10*3/uL Absolute Nucleated RBC 0.000 (0.0-0.012) X10*3/uL Nucleated RBC % (auto) 0.0 (0.0-0.2) /100WBC Hold Blue Top SEE NOTE Sodium 134 L (135-145) mmol/L Potassium 4.3 (3.3-5.1) mmol/L Chloride 100 (96-108) mmol/L Carbon Dioxide 24 (22-29) mmol/L Anion Gap 14 (12-20) BUN 28 H (9-16) mg/dL Creatinine 1.37 (0.5-1.4) mg/dL Estim Creat Clear Calc 33.7 Estimated GFR 39 Random Glucose 108 (60-115) mg/dL Calcium 8.7 (8.4-10.2) mg/dL Total Bilirubin 1.3 H (0.0-1.0) mg/dL AST 31 (5-31) U/L ALT 28 (0-31) U/L Alkaline Phosphatase 184 H (39-117) U/L Troponin I High Sens 17.2 H (<3.5-17.0) ng/L Total Protein 6.7 (6.5-8.0) g/dL Albumin 4.0 (3.5-5.0) g/dL Independent Interpretation I performed an independent interpretation of an: Plain X-Ray Radiology Impression Discussion of test interpretation with radiology: I have reviewed the radiologist's reading. Radiologist Impression: CLINICAL HISTORY: pain ?compression fx 3 views lumbar spine Comparison: None Findings: Normal vertebral body alignment. There are chronic appearing compression fractures at T12 and L1. There may be spondylolysis at L5-S1. No significant degenerative change. There is generalized bony demineralization. Possible fecal impaction in the rectosigmoid. Suspect calcified thoracic lymph nodes. IMPRESSION: 1. Likely chronic compression fractures T12 and L1. 2. Generalized bony demineralization. 3. Suspect bilateral spondylolysis at L5-S1. 4. Suspect fecal impaction in the rectosigmoid. This document has been electronically signed by: Juan J Morrison MD on 08/23/2024 02:01:13 Discharge Plan Discharge Clinical Impression: Chronic back pain Patient Disposition: Home, Self-Care Instructions: Chronic Back Pain (DC) Additional Instructions: Continue pain medication as prescribed by your PCP Lidoderm patch daily at the painful area Follow with your PCP Take stool softener for constipation Prescriptions: New lidocaine 4 % adhesive patch,medicated 1 patch topical DAILY PRN (Reason: pain) Qty: 10 0RF No Action gabapentin 300 mg capsule 300 mg PO BID sennosides [senna] 8.6 mg tablet 17.2 mg PO DAILY PRN (Reason: constipation) Beconase AQ 42 mcg (0.042 %) spray,non-aerosol 1 spray intranasal BID ferrous sulfate 325 mg (65 mg iron) tablet,delayed release (DR/EC) 325 mg PO DAILY hydromorphone [Dilaudid] 2 mg tablet 2 mg PO Q6H PRN (Reason: pain) Qty: 14 0RF Rx Instructions: Partial Fill upon patient request. albuterol sulfate 2.5 mg /3 mL (0.083 %) solution for nebulization 2.5 mg inhalation Q2-4H PRN (Reason: Shortness Of Breath Or Wheezing) Nucala 100 mg recon soln 100 mg subcut QMONTH Januvia 100 mg tablet 100 mg PO DAILY atorvastatin 20 mg tablet 20 mg PO BEDTIME Interventions: ED Discharge Assessment Last Done: 08/23/24 02:39 Discharge Date/Time: 08/23/24 02:40 Print Language: Uzbek
[2024-08-23 01:15] LABS: Troponin-I High Sensitivity 17.2 ng/L (<3.5-17.0)
[2024-08-23 01:18] LABS: Alanine Aminotransferase 28 U/L (0-31); Anion Gap 14 (12-20); Aspartate Amino Transferase 31 U/L (5-31); Bilirubin Total 1.3 mg/dL (0.0-1.0); Blood Urea Nitrogen 28 mg/dL (9-16); Calcium 8.7 mg/dL (8.4-10.2); Carbon Dioxide 24 mmol/L (22-29); Chloride 100 mmol/L (96-108); Creatinine Clr Calc Pharmacy 33.7; Estimated Glomerular Filt Rate 39; Glucose Random 108 mg/dL (60-115); Potassium 4.3 mmol/L (3.3-5.1); Sodium 134 mmol/L (135-145); Total Protein 6.7 g/dL (6.5-8.0)
[2024-08-23] MEDS: HYDROmorphone HCl 2 MG TABLET PO (02:02)
[2024-08-23 02:05] LABS: Alkaline Phosphatase 184 U/L (39-117)
[2024-08-23] MEDS: Milk of Magnesia 30 ML ORAL.SUSP PO (02:06)
[2024-08-23 02:39] VITALS: BP 144/62; PULSE 83; RESP 20; TEMP 37.1; O2SAT 96
== END 2024-08-23 02:40 | disposition home or self-care (01) ==
PROVIDERS: Emergency Provider Internal Medicine; PCP Internal Medicine
DX: M25.551 Pain in right hip (principal); M25.552 Pain in left hip; M54.50 Low back pain, unspecified; R07.89 Other chest pain; R94.31 Abnormal electrocardiogram [ECG] [EKG]; Z79.899 Other long term (current) drug therapy; Z87.891 Personal history of nicotine dependence
CPT/HCPCS: 72100; 80053; 84484; 85025; 93005; 99283; 99284

== ENCOUNTER → 2024-08-23 00:32 | Outpatient (BNV) | payer OTHER, SELFPAY | PROVIDERS: Emergency Provider Internal Medicine; PCP Internal Medicine; Visit Provider Internal Medicine Cardiovascular Disease | DX: I48.91 Unspecified atrial fibrillation (principal); R94.31 Abnormal electrocardiogram [ECG] [EKG] | CPT/HCPCS: 93010 ==

== ENCOUNTER → 2024-08-23 01:28 | Outpatient (BNV) | payer OTHER, SELFPAY | PROVIDERS: Emergency Provider Internal Medicine; PCP Internal Medicine; Visit Provider Radiology Diagnostic Radiology | DX: M54.50 Low back pain, unspecified (principal) | CPT/HCPCS: 72100 ==

== ENCOUNTER 2024-10-09 15:26 | Inpatient (IN) | payer OTHER, SELFPAY ==
[2024-10-09] VITALS (13 sets, daily range): BP systolic 112–155; BP diastolic 59–77; PULSE 83–107; RESP 16–21; TEMP 36.4–36.9; O2SAT 94–100; BMI 21.9
--- NOTE | ~2024-10-09 | XR_ITS ---
CLINICAL HISTORY: fall 2 view right knee Comparison: None Findings: Bones are osteopenic. Degenerative changes are severe in the lateral femorotibial compartment. No joint effusion. No radiopaque foreign body. Atherosclerotic vascular calcifications are noted. IMPRESSION: 1. No acute findings. This document has been electronically signed by: Reji Arce MD, PHD on 10/19/2024 02:57:04
--- NOTE | ~2024-10-09 | XR_ITS ---
EXAMINATION: XR ABDOMEN 1 VIEW (KUB) HISTORY: and distension COMPARISON: Comparison is made with the prior examination dated 10/14/2024. FINDINGS: A single supine view of the abdomen is submitted. The bowel gas pattern is unremarkable, without evidence of mechanical obstruction. There is a large amount of stool throughout the colon. Density at the GE junction may represent residual oral contrast in the stomach or an ingested tablet. There are no abnormal soft tissue masses. There is degenerative disc disease of the spine. XR/XR KUB IMPRESSION: Large amount of stool throughout the colon. Electronically signed by: Levi Bear MD 10/22/2024 09:34 AM EDT
--- NOTE | ~2024-10-09 | CT_ITS ---
CLINICAL HISTORY: pain, SBO? CT abdomen and pelvis without contrast Comparison: None Findings: Atelectasis. Interlobular septal thickening in the right lung, may reflect asymmetric pulmonary edema. Small right and trace left bilateral effusions. Tiny bilateral pulmonary nodules measuring no more than 5 mm. Per Fleischner criteria: Low-risk patients: No routine follow-up required. High-risk patients: Optional CT at 12 months. Calcified granuloma in the spleen. Marked cardiomegaly. Mitral annular calculus. Post sternotomy changes. Hepatomegaly. Nonspecific gallbladder wall thickening. No gallstones identified. Atrophic pancreas Tiny bilateral nonobstructive subcentimeter renal calculi measuring no more than 2 mm. Multifocal small bowel mural thickening, can be seen with enteritis. No bowel obstruction. Diffuse mesenteric edema. 3rd spacing with diffuse anasarca, mesenteric edema and small volume ascites. Inguinal and retroperitoneal lymphadenopathy, nonspecific. Scattered colonic diverticulosis without diverticulitis or colitis. Small volume ascites. Osteopenia with diffuse multilevel spondylosis. Grade 1 anterolisthesis at L5-S1 with pars defects. Multilevel age-indeterminate compression deformities at T11, T12, L1, L2 and L4. Lucent fracture lines remain evident of the superior endplates of T12 and L1, suggesting possibly an acute/subacute component. Extensive anasarca. Diffuse atheromatous plaque disease throughout the aorta and branch vessels, without aneurysmal dilatation. IMPRESSION: 1. Multilevel thoracolumbar compression deformities some of which appear acute/subacute as described. 2. Tiny bilateral nonobstructive subcentimeter renal calculi measuring no more than 2 mm. 3. Possible mild enteritis. 4. Suspect asymmetric right-sided pulmonary edema with bilateral effusions. 5. Additional findings as described. This document has been electronically signed by: David Rodriguez MD on 10/09/2024 19:58:50
--- NOTE | ~2024-10-09 | XR_ITS ---
CLINICAL HISTORY: fall 2 view left knee Comparison: CR/SR - XR KNEE LT 2V - 01/31/24 03:07 EDT Findings: The bones are osteopenic. Degenerative changes are moderate. No joint effusion. No radiopaque foreign body. Atherosclerotic vascular calcifications are present. IMPRESSION: 1. No acute findings. This document has been electronically signed by: Reji Arce MD, PHD on 10/19/2024 03:03:13
--- NOTE | ~2024-10-09 | US_ITS ---
EXAMINATION: US LOWER EXTREMITY VEINS LIMITED FOLLOW UP RIGHT HISTORY: pain COMPARISON: There are no prior studies for comparison. TECHNIQUE: Duplex and color Doppler sonographic examination of the deep venous system of the right lower extremity was performed. FINDINGS: The common femoral, superficial femoral, and popliteal veins are patent demonstrating normal compressibility, spontaneous flow, and augmentation. There is a normal color and spectral Doppler waveform appearance of the visualized deep venous system above the knee. The posterior tibial and peroneal veins are patent. Incidental note is made of probable enlarged lymph nodes in the right inguinal region. US/US venous duplex LE RT IMPRESSION: No evidence of acute DVT in the right lower extremity. Electronically signed by: Levi Bear MD 10/22/2024 03:29 PM EDT
--- NOTE | ~2024-10-09 | XR_ITS ---
EXAMINATION: XR ABDOMEN KUB CLINICAL INDICATION: abd pain COMPARISON: None. Correlation made with CT abdomen and pelvis 10/09/2024. TECHNIQUE: AP view of the abdomen. FINDINGS: The bowel gas pattern is normal/nonspecific. No focally dilated loop or evidence of obstruction. Mild to moderate retained stool seen in the descending colon, sigmoid, and rectum. Layering right pleural effusion present. Aside from vascular, no abnormal soft tissue calcifications. Hepatomegaly. Somewhat generalized overall haziness is likely related to anasarca. Compression deformities seen on the recent CT involving T11, T12, L1, L2 and L4 are not well seen on this KUB radiograph. There are spinal degenerative changes. XR/XR KUB IMPRESSION: 1. Mild diffuse soft tissue haziness diffusely likely related to anasarca. This limits sensitivity. 2. Layering right pleural effusion. 3. No bowel obstruction or dilated loops of bowel. Retained stool in the left colon and rectum. 4. Hepatomegaly. Electronically signed by: Arun New MD 10/14/2024 01:03 PM EDT
--- NOTE | 2024-10-09 15:59 | PC.NURSE ---
Pt comes to ED today via EMS for complaints of pain to back and all extremities. Pt reports Hx of anemia with need for transfusions and just finished completing dialysis last week. A&Ox3, VSS, afebrile. Breaths and speech are even and unlabored. Skin is warm and dry Pt reports pain is 9/10 after receiving Fentanyl by EMS. Awaiting ED provider/new orders.
--- NOTE | 2024-10-09 16:16 | ED.GENADULT ---
HPI - General Adult General Chief complaint: General Medical Stated complaint: general pain in arms and back, breathing shallow Time Seen by Provider: 10/09/24 16:15 Source: patient Limitations: no limitations History of Present Illness ED Provider: Daniella Encinas PA-C HPI narrative: 64-year-old female with a history of asthma, hyperlipidemia,diabetes, mitral stenosis s/p replacement with mechanical valve, systolic heart failure with EF of 25-30 % on echo 07/2023, AFib, who presents with abdominal pain of unclear duration. Patient's abdomen is distended, she states it has been that way for a month. Associated nausea but no vomiting. Patient can not recall the last time she had a bowel movement. She is still passing flatus from below. In addition, patient complains of exacerbation of her chronic back and leg pain; She is on chronic opiate therapy. Denies fever. Related Data Home Medications ?Medication ?Instructions ?Recorded ?Confirmed sitagliptin phosphate 100 mg 100 mg PO DAILY 11/16/22 10/09/24 tablet (Januvia) ferrous sulfate 325 mg (65 mg 325 mg PO DAILY 06/14/23 10/09/24 iron) tablet,delayed release gabapentin 300 mg capsule 300 mg PO TID 06/14/23 10/09/24 sennosides 8.6 mg tablet (senna) 8.6 mg PO DAILY constipation 06/14/23 10/09/24 albuterol sulfate 2.5 mg/3 mL 2.5 mg inhalation Q2-4H PRN 07/22/23 10/09/24 (0.083 %) solution for nebulization Shortness Of Breath Or Wheezing albuterol sulfate 90 mcg/actuation 2 puff inhalation Q4H PRN 10/09/24 10/09/24 aerosol inhaler Shortness Of Breath Or Wheezing amiodarone 200 mg tablet 200 mg PO DAILY 10/09/24 10/09/24 amoxicillin 500 mg capsule 500 mg PO TID 10/09/24 10/09/24 beclomethasone dipropionate 80 2 inh inhalation BID PRN Shortness 10/09/24 10/09/24 mcg/actuation HFA breath activated Of Breath Or Wheezing aerosol (Qvar RediHaler) buspirone 5 mg tablet 1.25 mg PO DAILY 10/09/24 10/09/24 cyclobenzaprine 5 mg tablet 5 mg PO TID PRN muscle spasms 10/09/24 10/09/24 docusate sodium 100 mg capsule 100 mg PO BID PRN constipation 10/09/24 10/09/24 furosemide 20 mg tablet 20 mg PO QID 10/09/24 10/09/24 lidocaine 5 % topical patch 1 patch topical DAILY PRN Pain 10/09/24 10/09/24 oxycodone 5 mg tablet 5 mg PO Q8H PRN severe pain 10/09/24 10/09/24 spironolactone 25 mg tablet 12.5 mg PO DAILY 10/09/24 10/09/24 warfarin 1 mg tablet 1 mg PO DAILY 10/09/24 10/09/24 Allergies Allergy/AdvReac Type Severity Reaction Status Date / Time lisinopril [LISINOPRIL] Allergy Severe ANGIOEDEMA Verified 10/09/24 15:45 morphine [MORPHINE] Allergy Severe ANAPHYLAXIS Verified 10/09/24 15:45 penicillin V Allergy Intermediate Itching Verified 10/09/24 15:45 cefaclor [From CECLOR] Allergy Unknown HIVES Verified 10/09/24 15:45 ciprofloxacin Allergy Unknown itchy Verified 10/09/24 15:45 codeine Allergy Unknown HIVES Verified 10/09/24 15:45 methylprednisolone Allergy Unknown Unknown Verified 10/09/24 15:45 nitrofurantoin Allergy Unknown Unknown Verified 10/09/24 15:45 olmesartan [Benicar] Allergy Unknown Unknown Verified 10/09/24 15:45 Penicillins Allergy Unknown HIVES Verified 10/09/24 15:45 Sulfa (Sulfonamide Allergy Unknown HIVES Verified 10/09/24 15:45 Antibiotics) empagliflozin AdvReac Severe Confusion Verified 10/09/24 15:45 [From Jardiance] apixaban [From Eliquis] AdvReac Intermediate Nausea Verified 10/09/24 15:45 hydromorphone [From Dilaudid] AdvReac Shakiness Verified 10/09/24 15:45 odansetron Allergy Severe Hives Uncoded 10/09/24 15:45 Metoprolol Succinate Allergy Intermediate Hives Uncoded 10/09/24 15:45 celcor Allergy Unknown itchy Uncoded 10/09/24 15:45 Gentamicin in Saline Allergy Unknown hives Uncoded 10/09/24 15:45 Gentamicin Sulfate Allergy Unknown hives Uncoded 10/09/24 15:45 Latex Allergy Unknown Itching Uncoded 10/09/24 15:45 latex Allergy Unknown Itching Uncoded 10/09/24 15:45 sulfonamides Allergy Unknown Unknown Uncoded 10/09/24 15:45 vioxx Allergy Unknown Itching Uncoded 10/09/24 15:45 Bicitra AdvReac Unknown unknown Uncoded 10/09/24 15:45 Review of Systems Review of Systems: Yes all other systems are reviewed and are negative Constitutional: Constitutional: Denies fatigue, Denies fever(s) and Denies malaise Cardiovascular: Cardiovascular: Denies chest pain and Denies dyspnea Respiratory: Respiratory: Denies cough and Denies dyspnea Gastrointestinal: Gastrointestinal: Reports abdominal pain, Reports constipation, Denies diarrhea, Reports nausea and Denies vomiting Musculoskeletal: Musculoskeletal: Reports back pain, Reports arthralgias and Reports joint swelling Endocrine: Endocrine: Denies fatigue PMFSH Past Medical History Attestation statement: The following information was validated with the patient. Medical History Secondary pulmonary arterial hypertension Ovarian cancer Tricuspid valve insufficiency, non-rheumatic Non-rheumatic aortic stenosis Persistent atrial fibrillation Surgical History H/O mitral valve replacement with mechanical valve Family History Family History Mother Heart disease Father Heart disease Diabetes Social History Social History Household Members: Family Housing: House Do you presently have visiting nurse or other home services: Yes Alcohol intake: never Patient Tobacco Use Status: Former Tobacco user Years Smoked: 4 +/- Smoked in Last 30 Days: No Use of substances other than those prescribed or required for medical reasons: No Advance Directives: Yes Advance Directives on File: Yes Advance Directives Date on File: 10/23/23 Do you have a plan to hurt others: No Plan service: No Physical Exam ED Vital Signs: Vital Signs - 24 hr 10/09/24 15:43 10/09/24 15:56 10/09/24 17:05 Temperature 97.5 F 97.5 F Pulse Rate 98 98 Respiratory Rate 16 16 16 Blood Pressure 118/59 L 118/59 L Pulse Oximetry 94 94 Oxygen Delivery Method Room Air Room Air 10/09/24 18:13 10/09/24 18:31 10/09/24 19:42 Temperature 98.4 F 98 F 97.8 F Pulse Rate 83 107 H 92 Respiratory Rate 16 16 19 Blood Pressure 137/63 112/73 132/72 Pulse Oximetry 98 Oxygen Delivery Method Room Air 10/09/24 20:05 10/09/24 21:22 10/09/24 22:23 Temperature 97.8 F 97.6 F Pulse Rate 94 86 85 Respiratory Rate 19 16 21 H Blood Pressure 144/65 H 155/67 H 127/77 Pulse Oximetry 94 Oxygen Delivery Method Room Air 10/09/24 22:31 10/09/24 22:45 10/09/24 22:46 Temperature 97.6 F 97.9 F 97.9 F Pulse Rate 85 91 91 Respiratory Rate 19 19 19 Blood Pressure 127/77 124/65 124/65 Pulse Oximetry Oxygen Delivery Method BMI result Body Mass Index 21.9 Const Other: Awake, ill-appearing, cachectic appears extremely uncomfortable Orientation/consciousness: patient oriented x3 Resp Effort & Inspection: normal respiratory effort Cardio Other: patient is warm and perfusing GI Other: abdomen is protuberant, generalized tenderness to palpation without guarding, somewhat tense.... on rectal exam, stool dark brown in color no melena no bright red blood per rectum Skin Other: warm dry no rash Neuro Other: unsteady gait General: patient oriented x3, no focal motor deficits and CN's II-XI intact bilaterally Extrem Other: skin over bilateral lower extremities is thickened and hyperpigmented and dry consistent with venous insufficiency Psych Other: cooperative, is distraught over her pain Course Reevaluation(s) Reevaluation #1: Critically anemic, we will add on type and screening blood products, consenting the patient for blood transfusion. I see in her chart that she is known to be guaiac positive, Reevaluation #2: patient denies being on anticoagulation, in her allergy profile it is listed that she can not take apixaban, I suspect she was taking this for her AFib and mechanical valve. Reevaluation #3: Inpatient team asking to repeat the guaiac, I will do so, the is now here at bedside, he confirms that the patient was on Coumadin. We will be obtaining an INR. Her CT scan is back at this point, she has mild enteritis, I suspect she is having a slow GI bleed given she is not spilling melena and has no complaint of bright red blood per rectum. On exam, she has a hard dark brown stool, when I obtained the guaiac card. Additional Reevaluation(s): I relate information to the inpatient team, the plan is to repeat H&H, if her blood counts are stable, we will not be giving vitamin K Medications Administered Discontinued Medications Generic Name Dose Route Start Last Admin Trade Name Freq PRN Reason Stop Dose Admin Diatrizoate Meglum/Diatrizoate Sod 30 ml 10/09/24 19:24 10/09/24 19:24 Diatrizoate Meglumine, Sodium 30 Ml Solution PO 10/09/24 19:25 30 ml ONCE ONE Administration Fentanyl 100 mcg 10/09/24 16:49 10/09/24 17:05 Fentanyl Citrate/Pf 100 Mcg/2 Ml Vial IVPUSH 10/09/24 16:50 100 mcg ONCE ONE Administration Protocol Haloperidol Lactate 2.5 mg 10/09/24 18:00 10/09/24 18:07 Haloperidol Lactate 5 Mg/Ml Vial IVPUSH 10/09/24 18:01 2.5 mg ONCE ONE Administration Sodium Chloride 500 mls @ 500 mls/hr 10/09/24 16:49 10/09/24 18:10 Ns IV 10/09/24 17:48 Infused .Q1H ONE Infusion Lorazepam 2 mg 10/09/24 17:59 10/09/24 18:07 Lorazepam 2 Mg/Ml Vial IVPUSH 10/09/24 18:00 2 mg ONCE ONE Administration Metoclopramide HCl 10 mg 10/09/24 16:49 10/09/24 17:05 Metoclopramide Hcl 10 Mg/2 Ml Vial IVPUSH 10/09/24 16:50 10 mg ONCE ONE Administration Medical Decision Making Medical Decision Making [facility] Narrative: 64-year-old female with a history of asthma, hyperlipidemia,diabetes, mitral stenosis s/p replacement with mechanical valve, systolic heart failure with EF of 25-30 % on echo 07/2023, AFib, who presents with abdominal pain of unclear duration. Patient's abdomen is distended, she states it has been that way for a month. Associated nausea but no vomiting. Patient can not recall the last time she had a bowel movement. She is still passing flatus from below. In addition, patient complains of exacerbation of her chronic back and leg pain; She is on chronic opiate therapy. Denies fever. problem: Chronic pain, asthma, diabetes, cardiac dysfunction History: Per patient I have considered the following differential diagnoses: Exacerbation of chronic pain, bowel obstruction, constipation, Plan: We will be obtaining screening labs, and a CT scan to rule out bowel obstruction. Her abdomen is protuberant with the associated nausea. she could also simply be constipated given her chronic opiate therapy. The patient received 100 mg of fentanyl pre arrival, she states her pain is poorly controlled, we will give an additional dose. I suspect the patient is taking too much of her home narcotics to manage her chronic pain. I have independently reviewed the following tests: Labs: Critically anemic at 6.5 and 19.8, no overall leukocytosis, however has left shift, no electrolyte abnormalities that are acute, she is at her baseline, urine not infected, viral panel negative CT abdomen and pelvis:IMPRESSION: 1. Multilevel thoracolumbar compression deformities some of which appear acute/subacute as described. 2. Tiny bilateral nonobstructive subcentimeter renal calculi measuring no more than 2 mm. 3. Possible mild enteritis. 4. Suspect asymmetric right-sided pulmonary edema with bilateral effusions. 5. Additional findings as described. Lab Data 10/09/24 16:33 10/09/24 16:33 Labs: Lab Results 10/09/24 10/09/24 10/09/24 Range/Units 16:29 16:33 17:05 WBC 6.0 (4.8-10.8) X10*3/uL RBC 2.06 L D (4.20-5.50) X10*6/uL Hgb 6.5 L* D (12.0-16.0) g/dl Hct 19.8 L* D (37.0-47.0) % MCV 96.1 (80.0-98.0) fL MCH 31.6 (27.0-33.0) pg MCHC 32.8 (31.0-35.0) g/dl RDW 16.7 H (11.0-16.0) % Plt Count 169 D (160-400) X10*3/uL MPV 9.0 L (9.4-12.3) fL Immature Gran % (Auto) 1.0 H (0.0-0.4) % Neut % (Auto) 80.3 H (45-73) % Lymph % (Auto) 8.5 L (20-40) % [place] % (Auto) 8.7 (2-11) % Eos % (Auto) 0.7 (0-4) % Baso % (Auto) 0.8 (0-2) % Lymph # (Auto) 0.5 L (1.2-4.9) X10*3/uL [place] # (Auto) 0.5 (0.1-1.2) X10*3/uL Eos # (Auto) 0.0 (0.0-0.4) X10*3/uL Baso # (Auto) 0.1 (0.0-0.2) X10*3/uL Abs Immat Gran (auto) 0.06 H (0.00-0.03) X10*3/uL Absolute Neuts (auto) 4.8 (2.0-8.3) x10*3/uL Absolute Nucleated RBC 0.000 (0.0-0.012) X10*3/uL Nucleated RBC % (auto) 0.0 (0.0-0.2) /100WBC PT (10.9-12.4) SEC INR (0.9-1.1) Sodium 139 (135-145) mmol/L Potassium 4.0 (3.3-5.1) mmol/L Chloride 105 (96-108) mmol/L Carbon Dioxide 25 (22-29) mmol/L Anion Gap 13 (12-20) BUN 80 H (9-16) mg/dL Creatinine 1.58 H (0.5-1.4) mg/dL Estim Creat Clear Calc 28.9 Estimated GFR 33 Random Glucose 114 (60-115) mg/dL Calcium 8.7 (8.4-10.2) mg/dL Magnesium 2.2 (1.6-2.6) mg/dL Total Bilirubin 1.0 (0.0-1.0) mg/dL AST 21 (5-31) U/L ALT 9 (0-31) U/L Alkaline Phosphatase 160 H (39-117) U/L Total Protein 5.7 L (6.5-8.0) g/dL Albumin 3.5 (3.5-5.0) g/dL Urine Color Yellow Urine Appearance Clear Urine pH 6.5 (5.0-9.0) Ur Specific [place] 1.015 (1.005-1.025) Urine Protein Negative (Neg-Trace) mg/dL Urine Glucose (UA) Negative (Negative) mg/dL Urine Ketones Negative (Negative) mg/dL Urine Blood Negative (Negative) Urine Nitrite Negative (Negative) Ur Leukocyte Esterase Trace H (Negative) Urine RBC 0-2 (0-2) /HPF Urine WBC 0-5 (0-5) /HPF Ur Squamous Epith Cells 0-2 (0-2) /HPF Urine Bacteria None Seen (None Seen) Hyaline Casts 0-2 (0-2) /LPF Stool Occult Blood (NEGATIVE) Influenza Type A (PCR) NEGATIVE (Negative) Influenza Type B (PCR) NEGATIVE (Negative) RSV RNA Qual (PCR) NEGATIVE (Negative) SARS-CoV-2 RNA (RT-PCR) NEGATIVE (Negative) Blood Type O Positive Antibody Screen NEGATIVE Crossmatch See Detail 10/09/24 Range/Units 22:51 WBC (4.8-10.8) X10*3/uL RBC (4.20-5.50) X10*6/uL Hgb (12.0-16.0) g/dl Hct (37.0-47.0) % MCV (80.0-98.0) fL MCH (27.0-33.0) pg MCHC (31.0-35.0) g/dl RDW (11.0-16.0) % Plt Count (160-400) X10*3/uL MPV (9.4-12.3) fL Immature Gran % (Auto) (0.0-0.4) % Neut % (Auto) (45-73) % Lymph % (Auto) (20-40) % [place] % (Auto) (2-11) % Eos % (Auto) (0-4) % Baso % (Auto) (0-2) % Lymph # (Auto) (1.2-4.9) X10*3/uL [place] # (Auto) (0.1-1.2) X10*3/uL Eos # (Auto) (0.0-0.4) X10*3/uL Baso # (Auto) (0.0-0.2) X10*3/uL Abs Immat Gran (auto) (0.00-0.03) X10*3/uL Absolute Neuts (auto) (2.0-8.3) x10*3/uL Absolute Nucleated RBC (0.0-0.012) X10*3/uL Nucleated RBC % (auto) (0.0-0.2) /100WBC PT 88.8 H (10.9-12.4) SEC INR 7.6 H* D (0.9-1.1) Sodium (135-145) mmol/L Potassium (3.3-5.1) mmol/L Chloride (96-108) mmol/L Carbon Dioxide (22-29) mmol/L Anion Gap (12-20) BUN (9-16) mg/dL Creatinine (0.5-1.4) mg/dL Estim Creat Clear Calc Estimated GFR Random Glucose (60-115) mg/dL Calcium (8.4-10.2) mg/dL Magnesium (1.6-2.6) mg/dL Total Bilirubin (0.0-1.0) mg/dL AST (5-31) U/L ALT (0-31) U/L Alkaline Phosphatase (39-117) U/L Total Protein (6.5-8.0) g/dL Albumin (3.5-5.0) g/dL Urine Color Urine Appearance Urine pH (5.0-9.0) Ur Specific [place] (1.005-1.025) Urine Protein (Neg-Trace) mg/dL Urine Glucose (UA) (Negative) mg/dL Urine Ketones (Negative) mg/dL Urine Blood (Negative) Urine Nitrite (Negative) Ur Leukocyte Esterase (Negative) Urine RBC (0-2) /HPF Urine WBC (0-5) /HPF Ur Squamous Epith Cells (0-2) /HPF Urine Bacteria (None Seen) Hyaline Casts (0-2) /LPF Stool Occult Blood POSITIVE (NEGATIVE) Influenza Type A (PCR) (Negative) Influenza Type B (PCR) (Negative) RSV RNA Qual (PCR) (Negative) SARS-CoV-2 RNA (RT-PCR) (Negative) Blood Type Antibody Screen Crossmatch Discharge Plan Discharge Clinical Impression: Chronic pain, Anemia, Enteritis Patient Disposition: Admitted As Inpatient
[2024-10-09 16:40] LABS: MANUAL DIFF FLAG NO
[2024-10-09 16:42] LABS: Basophils Absolute Auto 0.1 X10*3/uL (0.0-0.2); Basophils Percent Auto 0.8 % (0-2); Eosinophils Percent Auto 0.7 % (0-4); Imm Gran Abs Auto 0.06 X10*3/uL (0.00-0.03); Lymphocytes Absolute Auto 0.5 X10*3/uL (1.2-4.9); Lymphocytes Percent Auto 8.5 % (20-40); Mean Corpuscular HGB Conc 32.8 g/dl (31.0-35.0); Mean Corpuscular Hemoglobin 31.6 pg (27.0-33.0); Mean Corpuscular Volume 96.1 fL (80.0-98.0); Monocytes Absolute Auto 0.5 X10*3/uL (0.1-1.2); Monocytes Percent Auto 8.7 % (2-11); Neutrophils Absolute Auto 4.8 x10*3/uL (2.0-8.3); Neutrophils Percent Auto 80.3 % (45-73); Platelet Count 169 X10*3/uL (160-400); Red Blood Count 2.06 X10*6/uL (4.20-5.50); Red Cell Distribution Width 16.7 % (11.0-16.0)
[2024-10-09 16:50] LABS: Hematocrit 19.8 % (37.0-47.0); Hemoglobin 6.5 g/dl (12.0-16.0)
[2024-10-09 16:55] LABS: Alanine Aminotransferase 9 U/L (0-31); Albumin Level 3.5 g/dL (3.5-5.0); Alkaline Phosphatase 160 U/L (39-117); Anion Gap 13 (12-20); Aspartate Amino Transferase 21 U/L (5-31); Blood Urea Nitrogen 80 mg/dL (9-16); Calcium 8.7 mg/dL (8.4-10.2); Carbon Dioxide 25 mmol/L (22-29); Chloride 105 mmol/L (96-108); Creatinine Clr Calc Pharmacy 28.9; Estimated Glomerular Filt Rate 33; Glucose Random 114 mg/dL (60-115); Magnesium 2.2 mg/dL (1.6-2.6); Sodium 139 mmol/L (135-145); Total Protein 5.7 g/dL (6.5-8.0)
[2024-10-09] MEDS: fentaNYL citrate/PF 100 MCG/2 ML VIAL IVPUSH (17:05)
[2024-10-09] MEDS: 0.9 % Sodium Chloride 500 ML IV (17:05)
[2024-10-09] MEDS: Metoclopramide HCl 10 MG/2 ML VIAL IVPUSH (17:05)
[2024-10-09 17:16] LABS: Appearance Urine Clear; Color Urine Yellow; Glucose Urine UA Negative (Negative); Leukocyte Esterase Urine Trace (Negative); Nitrite Urine Negative (Negative); PH 6.5 (5.0-9.0); Specific Gravity - Urine 1.015 (1.005-1.025); UMIC TRIGGER UACC YES; Urine Blood Negative (Negative); Urine Ketones Negative (Negative); Urine Protein Negative (Neg-Trace)
[2024-10-09 17:21] LABS: Bacteria Urine None Seen (None Seen); Hyaline Casts Urine 0-2 /LPF (0-2); RBC Urine 0-2 /HPF (0-2); Squamous Epithelial Cell Urine 0-2 /HPF (0-2); WBC Urine 0-5 /HPF (0-5)
[2024-10-09 17:36] LABS: Influenza A PCR NEGATIVE (Negative); Influenza B PCR NEGATIVE (Negative); Resp Syncy Virus RNA Qual PCR NEGATIVE (Negative); SARS COV2 PCR INHOUSE NEGATIVE (Negative)
[2024-10-09] MEDS: Haloperidol Lactate 5 MG/ML VIAL 2.5 MG IVPUSH (18:07)
[2024-10-09] MEDS: LORazepam 2 MG/ML VIAL IVPUSH (18:07)
[2024-10-09] MEDS: Diatrizoate Meglumine, Sodium 30 ML SOLUTION PO (19:24)
--- NOTE | 2024-10-09 22:47 | PHA.MEDREC ---
Addendum entered by Rick Aldridge formerly [facility] 10/09/24 22:56: MED REC CHECKED BY [facility] Original Note: Pharmacy Consult ? Medication Reconciliation Pharmacy has completed the medication reconciliation. Spoke with patient to confirm medications. She reports she still takes Januvia (LF 05/2024 90DS), furosemide 20 mg QID (LF 05/2024 x90DS), and amiodarone (LF 08/12/24 x30DS). She reports being on warfarin 1 mg, last taken yesterday. Spouse says she has not had Nucala recently, no recent claims. He reports she uses cyclobenzaprine prn and is not using dilaudid currently. She uses both inhalers prn. Patient reports using a quarter tab of buspar daily and 1/2 tab of spironolactone daily. Patient said she stopped taking atorvastatin. She said she had no medications today.
[2024-10-09 22:56] LABS: OBS Int Ctl Valid YES; OBS1 POSITIVE (NEGATIVE)
[2024-10-09 23:08] LABS: Prothrombin Time 88.8 SEC (10.9-12.4)
[2024-10-09 23:13] LABS: INTERNATIONAL NORM RATIO 7.6 (0.9-1.1)
[2024-10-10] VITALS (12 sets, daily range): BP systolic 106–155; BP diastolic 38–70; PULSE 68–93; RESP 14–22; TEMP 36.4–37.6; O2SAT 95–100
--- NOTE | 2024-10-10 | ECG_ITS ---
Test Reason : NAUSEA Blood Pressure : */* mmHG Vent. Rate : 90 BPM Atrial Rate : * BPM P-R Int : * ms QRS Dur : 124 ms QT Int : 440 ms P-R-T Axes : * 120 133 degrees QTcB Int : 538 ms Atrial fibrillation Left posterior fascicular block Nonspecific ST and T wave abnormality Abnormal ECG When compared with ECG of 23-Aug-2024 00:32, No significant change was found Referred By: Isabela Francois Electronically Signed By: EZEQUIEL METZGER MD
[2024-10-10 01:17] LABS: Hematocrit 26.1 % (37.0-47.0); Hemoglobin 8.7 g/dl (12.0-16.0); Mean Corpuscular HGB Conc 33.3 g/dl (31.0-35.0); Mean Corpuscular Hemoglobin 31.4 pg (27.0-33.0); Mean Corpuscular Volume 94.2 fL (80.0-98.0); NRBC Pct Auto 0.2 /100WBC (0.0-0.2); Platelet Count 177 X10*3/uL (160-400); Red Blood Count 2.77 X10*6/uL (4.20-5.50); Red Cell Distribution Width 16.2 % (11.0-16.0)
--- NOTE | 2024-10-10 01:35 | PC.NURSE ---
pts O2 sat noted to be 80s, placed pt on 2L NC pt O2 sat now 94%.
[2024-10-10] MEDS: Furosemide 20 MG/2 ML VIAL IVPUSH ×3 (01:44→18:47)
--- NOTE | 2024-10-10 01:45 | P.HPHOSP_ITS ---
History of Present Illness Date of Service: 10/10/24 Attending physician on admission: Kike Hernandez Chief Complaint: Back and extremity pain Patient is a 64-year-old female with a history of asthma, hyperlipidemia,diabetes, mitral stenosis s/p replacement with mechanical valve, systolic heart failure with EF of 25-30 % on echo 07/2023, and persistent AFib, who presented to the ED due to abdominal pain for an unknown period of time as well as back pain and or pain. The patient received any medications for anxiety and pain and has been sleeping in unable to give history. Based off of the ED provider know the patient had a distended abdomen and stated independent away for about a month. She has had associated nausea but no vomiting. She can not recall the last time she had a bowel movement but has been able to pass gas. In addition she felt that her chronic back pain and leg pain has been worse than her baseline. She has had chronic opioid meds. She denied any fever. ED she was found to be critically anemic and guaiac positive. She was transfused with 2 units PRBC. INR was supratherapeutic at 7.6. Initial hemoglobin was 6.5, repeat 8.7, vitamin K was deferred. Review of Systems 2 Review of Systems: Yes Unobtainable due to mental condition COUNT INCLUDES THE [facility] Medical History (Updated 10/10/24 @ 02:00 by Isabela Francois PA-C) Chronic systolic heart failure Type 2 diabetes mellitus without complications Mild intermittent asthma Secondary pulmonary arterial hypertension Ovarian cancer Tricuspid valve insufficiency, non-rheumatic Non-rheumatic aortic stenosis Persistent atrial fibrillation Family History Mother Heart disease Father Heart disease Diabetes Surgical History H/O mitral valve replacement with mechanical valve Social History Household Members: Family Housing: House Do you presently have visiting nurse or other home services: Yes Alcohol intake: never Patient Tobacco Use Status: Former Tobacco user Years Smoked: 4 +/- Smoked in Last 30 Days: No Use of substances other than those prescribed or required for medical reasons: No Advance Directives: Yes Advance Directives on File: Yes Advance Directives Date on File: 10/23/23 Do you have a plan to hurt others: No Plan service: No Meds Allergies Allergy/AdvReac Type Severity Reaction Status Date / Time lisinopril [LISINOPRIL] Allergy Severe ANGIOEDEMA Verified 10/09/24 15:45 morphine [MORPHINE] Allergy Severe ANAPHYLAXIS Verified 10/09/24 15:45 penicillin V Allergy Intermediate Itching Verified 10/09/24 15:45 cefaclor [From CECLOR] Allergy Unknown HIVES Verified 10/09/24 15:45 ciprofloxacin Allergy Unknown itchy Verified 10/09/24 15:45 codeine Allergy Unknown HIVES Verified 10/09/24 15:45 methylprednisolone Allergy Unknown Unknown Verified 10/09/24 15:45 nitrofurantoin Allergy Unknown Unknown Verified 10/09/24 15:45 olmesartan [Benicar] Allergy Unknown Unknown Verified 10/09/24 15:45 Penicillins Allergy Unknown HIVES Verified 10/09/24 15:45 Sulfa (Sulfonamide Allergy Unknown HIVES Verified 10/09/24 15:45 Antibiotics) empagliflozin AdvReac Severe Confusion Verified 10/09/24 15:45 [From Jardiance] apixaban [From Eliquis] AdvReac Intermediate Nausea Verified 10/09/24 15:45 hydromorphone [From Dilaudid] AdvReac Shakiness Verified 10/09/24 15:45 odansetron Allergy Severe Hives Uncoded 10/09/24 15:45 Metoprolol Succinate Allergy Intermediate Hives Uncoded 10/09/24 15:45 celcor Allergy Unknown itchy Uncoded 10/09/24 15:45 Gentamicin in Saline Allergy Unknown hives Uncoded 10/09/24 15:45 Gentamicin Sulfate Allergy Unknown hives Uncoded 10/09/24 15:45 Latex Allergy Unknown Itching Uncoded 10/09/24 15:45 latex Allergy Unknown Itching Uncoded 10/09/24 15:45 sulfonamides Allergy Unknown Unknown Uncoded 10/09/24 15:45 vioxx Allergy Unknown Itching Uncoded 10/09/24 15:45 Bicitra AdvReac Unknown unknown Uncoded 10/09/24 15:45 Active Medications: Current Medications Acetaminophen (Acetaminophen 325 Mg Tablet) 975 mg PO Q6H PRN PRN Reason: Pain, Mild 1-3,fever,headache Calcium Carbonate (Calcium Carbonate 750 Mg Tab.Chew) 750 mg PO Q4H PRN PRN Reason: Heartburn Magnesium Hydroxide (Milk Of Magnesia 30 Ml Oral.Susp) 30 ml PO DAILY PRN PRN Reason: Constipation Melatonin (Melatonin 3 Mg Tablet) 6 mg PO BEDTIME PRN PRN Reason: Insomnia Ondansetron HCl (Ondansetron Hcl 4 Mg/2 Ml Vial) 4 mg IVPUSH Q8H PRN PRN Reason: Nausea and Vomiting Sodium Chloride (0.9 % Sodium Chloride Flush 3 Ml Syringe) [facility] ?Medication ?Instructions ?Recorded ?Confirmed ?Last Taken ?Type sitagliptin phosphate 100 mg 100 mg PO DAILY 11/16/22 10/09/24 06/13/23 History tablet (Januvia) ferrous sulfate 325 mg (65 mg 325 mg PO DAILY 06/14/23 10/09/24 06/13/23 History iron) tablet,delayed release gabapentin 300 mg capsule 300 mg PO TID 06/14/23 10/09/24 06/13/23 History sennosides 8.6 mg tablet (senna) 8.6 mg PO DAILY constipation 06/14/23 10/09/24 06/13/23 History albuterol sulfate 2.5 mg/3 mL 2.5 mg inhalation Q2-4H PRN 07/22/23 10/09/24 Unknown History (0.083 %) solution for nebulization Shortness Of Breath Or Wheezing albuterol sulfate 90 mcg/actuation 2 puff inhalation Q4H PRN 10/09/24 10/09/24 Unknown History aerosol inhaler Shortness Of Breath Or Wheezing amiodarone 200 mg tablet 200 mg PO DAILY 10/09/24 10/09/24 Unknown History amoxicillin 500 mg capsule 500 mg PO TID 10/09/24 10/09/24 Unknown History beclomethasone dipropionate 80 2 inh inhalation BID PRN Shortness 10/09/24 10/09/24 Unknown History mcg/actuation HFA breath activated Of Breath Or Wheezing aerosol (Qvar RediHaler) buspirone 5 mg tablet 1.25 mg PO DAILY 10/09/24 10/09/24 Unknown History cyclobenzaprine 5 mg tablet 5 mg PO TID PRN muscle spasms 10/09/24 10/09/24 Unknown History docusate sodium 100 mg capsule 100 mg PO BID PRN constipation 10/09/24 10/09/24 Unknown History furosemide 20 mg tablet 20 mg PO QID 10/09/24 10/09/24 Unknown History lidocaine 5 % topical patch 1 patch topical DAILY PRN Pain 10/09/24 10/09/24 Unknown History oxycodone 5 mg tablet 5 mg PO Q8H PRN severe pain 10/09/24 10/09/24 Unknown History spironolactone 25 mg tablet 12.5 mg PO DAILY 10/09/24 10/09/24 Unknown History warfarin 1 mg tablet 1 mg PO DAILY 10/09/24 10/09/24 10/08/24 History Physical Exam 2 Vital Signs and Narrative: Vital Signs: Last Vital Signs Temp 97.8 F 10/10/24 01:13 Pulse 92 10/10/24 01:13 Resp 15 10/10/24 01:13 BP 129/52 L 10/10/24 01:44 Pulse Ox 94 10/09/24 21:22 O2 Del Method Room Air 10/10/24 01:13 O2 Flow Rate 94 10/10/24 01:13 BMI result Body Mass Index 21.9 General: obtunded, no acute distress Resp: fine crackles in bilateral lower lungs, no wheezing CVS: irregularly irregular, regular rate, +murmur GI: +BS, NT, mild distention Skin: Warm, dry Neuro: Cranial nerves II-XII grossly intact bilaterally. Motor grossly intact bilaterally Extremities: 2+ pitting edema Psych: Appropriate affect Results Labs 10/10/24 01:12 10/09/24 16:33 Labs: Laboratory Results - last 24 hr 10/09/24 10/09/24 10/09/24 16:29 16:33 17:05 MCV 96.1 MCH 31.6 MCHC 32.8 RDW 16.7 H Plt Count 169 D MPV 9.0 L Immature Gran % (Auto) 1.0 H Neut % (Auto) 80.3 H Lymph % (Auto) 8.5 L [place] % (Auto) 8.7 Eos % (Auto) 0.7 Baso % (Auto) 0.8 Lymph # (Auto) 0.5 L [place] # (Auto) 0.5 Eos # (Auto) 0.0 Baso # (Auto) 0.1 Abs Immat Gran (auto) 0.06 H Absolute Neuts (auto) 4.8 Absolute Nucleated RBC 0.000 Nucleated RBC % (auto) 0.0 PT INR Anion Gap 13 Estim Creat Clear Calc 28.9 Estimated GFR 33 Random Glucose 114 Calcium 8.7 Magnesium 2.2 Total Bilirubin 1.0 AST 21 ALT 9 Alkaline Phosphatase 160 H Total Protein 5.7 L Albumin 3.5 Urine Color Yellow Urine Appearance Clear Urine pH 6.5 Ur Specific [place] 1.015 Urine Protein Negative Urine Glucose (UA) Negative Urine Ketones Negative Urine Blood Negative Urine Nitrite Negative Ur Leukocyte Esterase Trace H Urine RBC 0-2 Urine WBC 0-5 Ur Squamous Epith Cells 0-2 Urine Bacteria None Seen Hyaline Casts 0-2 Stool Occult Blood Influenza Type A (PCR) NEGATIVE Influenza Type B (PCR) NEGATIVE RSV RNA Qual (PCR) NEGATIVE SARS-CoV-2 RNA (RT-PCR) NEGATIVE Blood Type O Positive Antibody Screen NEGATIVE Crossmatch See Detail 10/09/24 10/10/24 22:51 01:12 MCV 94.2 MCH 31.4 MCHC 33.3 RDW 16.2 H Plt Count 177 MPV 9.0 L Immature Gran % (Auto) Neut % (Auto) Lymph % (Auto) [place] % (Auto) Eos % (Auto) Baso % (Auto) Lymph # (Auto) [place] # (Auto) Eos # (Auto) Baso # (Auto) Abs Immat Gran (auto) Absolute Neuts (auto) Absolute Nucleated RBC 0.020 H Nucleated RBC % (auto) 0.2 PT 88.8 H INR 7.6 H* D Anion Gap Estim Creat Clear Calc Estimated GFR Random Glucose Calcium Magnesium Total Bilirubin AST ALT Alkaline Phosphatase Total Protein Albumin Urine Color Urine Appearance Urine pH Ur Specific [place] Urine Protein Urine Glucose (UA) Urine Ketones Urine Blood Urine Nitrite Ur Leukocyte Esterase Urine RBC Urine WBC Ur Squamous Epith Cells Urine Bacteria Hyaline Casts Stool Occult Blood POSITIVE Influenza Type A (PCR) Influenza Type B (PCR) RSV RNA Qual (PCR) SARS-CoV-2 RNA (RT-PCR) Blood Type Antibody Screen Crossmatch Assessment and Plan (1) GI bleed: Status: Acute (2) Supratherapeutic INR: Status: Acute (3) Bilateral pleural effusion: Status: Acute (4) Prolonged QT interval: Status: Acute Plan Patient is a 64-year-old female with a history of asthma, hyperlipidemia,diabetes, mitral stenosis s/p replacement with mechanical valve, systolic heart failure with EF of 25-30 % on echo 07/2023, and persistent AFib, who presented to the ED due to abdominal pain for an unknown period of time as well as back pain and or pain. ED she was found to be critically anemic and guaiac positive. She was transfused with 2 units PRBC. INR was supratherapeutic at 7.6. Initial hemoglobin was 6.5, repeat 8.7, vitamin K was deferred. GI bleed - hemoglobin 6.5, hematocrit 19.8, received 2 units PRBC with improvement to 8.7/26.1 - fecal occult blood test positive x2 - hold Coumadin pending GI - repeat CBC in AM - abdominopelvic CT with possible small volume ascites, enteritis and right pulmonary edema with bilateral effusions - NPO - gastroenterology consult Supratherapeutic INR - hold Coumadin pending GI approval - cardiology consultation - check INR in AM Bilateral pleural effusion/pulmonary edema - unable to obtain hx from pt regarding respiratory symptoms - 2+ pitting edema on exam - echo from 07/2023 with severely reduced LV EF 25-30% - Lasix 20 mg IV x1 - furosemide 20 mg IV QD and continue home spironolactone 12.5 mg q.d. - cardiology consult as above Prolonged QTC - electrolytes normal - avoid QT prolonging agents Mild persistent asthma, no acute exacerbation - albuterol as needed - QVAR b.i.d. p.r.n. HLD - no home meds Type 2 diabetes - hold p.o. meds - sliding scale insulin - NPO until GI consultation and better mentation Persistent AFib - EKG with AFib, rate controlled - holding Coumadin due to supratherapeutic INR and GI bleed - continue amiodarone Chronic back pain - continue lidocaine patch - hold gabapentin and cyclobenzaprine until better mentation Full code VTE prophylaxis: Pneumoboots, resume Coumadin when appropriate Patient with GI bleed and supratherapeutic INR, requiring admission for at least 2 midnights stay for further evaluation and monitoring. Quality Stroke Does the patient have a stroke diagnosis?: No VTE Prior VTE?: No VTE Risk Level:: Medical - moderate - high VTE Device Contraindication: N/A - Device Ordered VTE Drug Contraindication: Treatment Not Indicated
[2024-10-10 03:02] LABS: B Type Natriuretic Peptide 691 pg/mL (<100)
[2024-10-10] MEDS: Acetaminophen 1,000 MG/100 ML PIGGYBACK 400 MG IV (04:14)
[2024-10-10] MEDS: LORazepam 2 MG/ML VIAL 0.5 MG IVPUSH (04:14)
[2024-10-10 06:08] LABS: MANUAL DIFF FLAG NO
[2024-10-10 06:12] LABS: Basophils Absolute Auto 0.1 X10*3/uL (0.0-0.2); Basophils Percent Auto 0.8 % (0-2); Eosinophils Percent Auto 0.4 % (0-4); Hematocrit 26.4 % (37.0-47.0); Hemoglobin 8.5 g/dl (12.0-16.0); Imm Gran Abs Auto 0.07 X10*3/uL (0.00-0.03); Imm Gran Pct Auto 0.9 % (0.0-0.4); Lymphocytes Absolute Auto 0.6 X10*3/uL (1.2-4.9); Mean Corpuscular HGB Conc 32.2 g/dl (31.0-35.0); Mean Corpuscular Hemoglobin 30.5 pg (27.0-33.0); Mean Corpuscular Volume 94.6 fL (80.0-98.0); Mean Platelet Volume 9.4 fL (9.4-12.3); Monocytes Absolute Auto 0.8 X10*3/uL (0.1-1.2); NRBC Pct Auto 0.3 /100WBC (0.0-0.2); Neutrophils Absolute Auto 6.1 x10*3/uL (2.0-8.3); Neutrophils Percent Auto 79.9 % (45-73); Platelet Count 184 X10*3/uL (160-400); Red Blood Count 2.79 X10*6/uL (4.20-5.50); Red Cell Distribution Width 16.4 % (11.0-16.0); White Blood Count 7.6 X10*3/uL (4.8-10.8)
[2024-10-10 06:30] LABS: Anion Gap 17 (12-20); Blood Urea Nitrogen 79 mg/dL (9-16); Calcium 8.8 mg/dL (8.4-10.2); Carbon Dioxide 20 mmol/L (22-29); Chloride 107 mmol/L (96-108); Creatinine Clr Calc Pharmacy 27.9; Estimated Glomerular Filt Rate 31; Glucose Random 98 mg/dL (60-115); Potassium 4.2 mmol/L (3.3-5.1); Sodium 140 mmol/L (135-145)
[2024-10-10 06:34] LABS: Prothrombin Time 88.5 SEC (10.9-12.4)
[2024-10-10 07:04] LABS: INTERNATIONAL NORM RATIO 7.6 (0.9-1.1)
[2024-10-10 08:35] LABS: Glucose, Whole Blood 93 mg/dL (60-115)
[2024-10-10] MEDS: 0.9 % Sodium Chloride Flush 3 ML SYRINGE IVFLUSH ×2 (09:27→17:36)
--- NOTE | 2024-10-10 10:09 | PM.CNCAR ---
History of Present Illness History of Present Illness Date of Service: 10/10/24 Requesting physician: Leslye Hassan Consult reason: congestive heart failure and other ( anticoagulation management) Chief complaint: GI bleed, abd pain Narrative: I was consulted to see Ruby in cardiology consultation today. She has an extremely complicated 64-year-old female with significant chronic cardiovascular issues including prior mechanical mitral valve replacement for what appears to be rheumatic heart disease, severe LV systolic dysfunction with LVEF of 25-30%, nonischemic with heart failure with reduced ejection fraction with recurrent hospitalization related to the same, severe aortic stenosis, low-flow severe aortic stenosis, severe tricuspid regurgitation, pulmonary hypertension, recurrent advanced kidney disease requiring intermittent dialysis, currently not on dialysis, chronic atrial fibrillation on rate control with amiodarone has not been able to tolerate other medications and has not been able to tolerate other neurohormonal modulators due to multiple risk factors. Patient came to the hospital with weakness, declines any shortness of breath. She says she was in the hospital and [facility] for couple of months and had developed some hematoma and complication related to it. She has chronic anemia and chronic kidney disease, however she came in he was noted to be significantly anemic with hemoglobin of 6.5 and hematocrit of 19.8. She was also noted to have supratherapeutic INR in this above 7 range. Vitamin K was appropriately deferred. She has not had any active bleeding. She came in with abdominal pain and has had not had a bowel movement for a long time. She has a very poor historian he is not able to provide and reconsult most of her history. History was mostly obtained from the chart. She was then transfused 2 units of packed RBC with hemoglobin improved in 8.7 range and has remained stable. She is currently seems very fidgety in bed and seems to be very uncomfortable. She denies any shortness of breath but visibly appears to be mildly short of breath. She denies any palpitations. She denies any lightheadedness, syncope. Blood pressure is in the low range Review of Systems Constitutional: Constitutional: Denies body ache(s), Denies chills, Reports fatigue, Denies fever(s) and Reports weakness Eyes: Eyes: Reports no additional eye complaints Cardiovascular: Cardiovascular: Denies chest pain, Denies syncope, Denies lightheadedness, Denies Loss of Consciousness, Denies palpitations and Reports dyspnea Respiratory: Respiratory: Reports dyspnea Gastrointestinal: Gastrointestinal: Denies melena, Denies hematochezia, Reports constipation and Reports nausea Genitourinary: Genitourinary: Reports no additional female genitourinary complaints Neurologic: Denies syncope and Reports weakness Psychiatric: Psychiatric: Reports no additional psychiatric complaints Endocrine: Endocrine: Reports fatigue and Denies palpitations [facility] Past Medical History Medical History (Updated 10/10/24 @ 10:16 by Kushal Rosales MD) Chronic systolic heart failure Type 2 diabetes mellitus without complications Mild intermittent asthma Secondary pulmonary arterial hypertension Ovarian cancer Tricuspid valve insufficiency, non-rheumatic Non-rheumatic aortic stenosis Persistent atrial fibrillation Family History Family History Mother Heart disease Father Heart disease Diabetes Surgical History Surgical History H/O mitral valve replacement with mechanical valve Social History Social History Household Members: Family Housing: House Do you presently have visiting nurse or other home services: Yes Alcohol intake: never Patient Tobacco Use Status: Former Tobacco user Years Smoked: 4 +/- Smoked in Last 30 Days: No Use of substances other than those prescribed or required for medical reasons: No Advance Directives: Yes Advance Directives on File: Yes Advance Directives Date on File: 10/23/23 Do you have a plan to hurt others: No Plan service: No Meds Allergies Allergy/AdvReac Type Severity Reaction Status Date / Time lisinopril [LISINOPRIL] Allergy Severe ANGIOEDEMA Verified 10/09/24 15:45 morphine [MORPHINE] Allergy Severe ANAPHYLAXIS Verified 10/09/24 15:45 penicillin V Allergy Intermediate Itching Verified 10/09/24 15:45 cefaclor [From CECLOR] Allergy Unknown HIVES Verified 10/09/24 15:45 ciprofloxacin Allergy Unknown itchy Verified 10/09/24 15:45 codeine Allergy Unknown HIVES Verified 10/09/24 15:45 methylprednisolone Allergy Unknown Unknown Verified 10/09/24 15:45 nitrofurantoin Allergy Unknown Unknown Verified 10/09/24 15:45 olmesartan [Benicar] Allergy Unknown Unknown Verified 10/09/24 15:45 Penicillins Allergy Unknown HIVES Verified 10/09/24 15:45 Sulfa (Sulfonamide Allergy Unknown HIVES Verified 10/09/24 15:45 Antibiotics) empagliflozin AdvReac Severe Confusion Verified 10/09/24 15:45 [From Jardiance] apixaban [From Eliquis] AdvReac Intermediate Nausea Verified 10/09/24 15:45 hydromorphone [From Dilaudid] AdvReac Shakiness Verified 10/09/24 15:45 odansetron Allergy Severe Hives Uncoded 10/09/24 15:45 Metoprolol Succinate Allergy Intermediate Hives Uncoded 10/09/24 15:45 celcor Allergy Unknown itchy Uncoded 10/09/24 15:45 Gentamicin in Saline Allergy Unknown hives Uncoded 10/09/24 15:45 Gentamicin Sulfate Allergy Unknown hives Uncoded 10/09/24 15:45 Latex Allergy Unknown Itching Uncoded 10/09/24 15:45 latex Allergy Unknown Itching Uncoded 10/09/24 15:45 sulfonamides Allergy Unknown Unknown Uncoded 10/09/24 15:45 vioxx Allergy Unknown Itching Uncoded 10/09/24 15:45 Bicitra AdvReac Unknown unknown Uncoded 10/09/24 15:45 Active Medications: Current Medications Acetaminophen (Acetaminophen 325 Mg Tablet) 975 mg PO Q6H PRN PRN Reason: Pain, Mild 1-3,fever,headache Albuterol Sulfate (Albuterol Sulfate 90 Mcg 8 Gm Inhaler) 2 puff INHALE Q4H PRN PRN Reason: Shortness Of Breath Or Wheezing Albuterol Sulfate (Albuterol Sulfate (0.083%) 2.5 Mg/3 Ml Vial.Neb) 2.5 mg INHALE Q2H PRN PRN Reason: Shortness Of Breath Or Wheezing Amiodarone HCl (Amiodarone Hcl 200 Mg Tablet) 200 mg PO DAILY NARCISA Buspirone HCl (Buspirone Hcl 5 Mg Tablet) 1.25 mg PO DAILY NARCISA Calcium Carbonate (Calcium Carbonate 750 Mg Tab.Chew) 750 mg PO Q4H PRN PRN Reason: Heartburn Cyclobenzaprine HCl (Cyclobenzaprine Hcl 5 Mg Tablet) 5 mg PO TID PRN PRN Reason: muscle spasms Dextrose (Dextrose 50 % 25 Gm/50 Ml Syringe) 25 gm IVPUSH Q15M PRN; Protocol PRN Reason: per Hypoglycemia Standing Ord. Docusate Sodium (Docusate Sodium 100 Mg Capsule) 100 mg PO BID PRN PRN Reason: constipation Ferrous Sulfate (Ferrous Sulfate 324 Mg Tablet.Dr) 324 mg PO DAILY REPLACED BY [facility] Last Admin: 10/10/24 09:29 Dose: Not Given Fluticasone Propionate (Fluticasone Propionate 250 Mcg Blst.W.Dev) 1 puff INHALE RBID PRN PRN Reason: Shortness Of Breath Or Wheezing Furosemide (Furosemide 20 Mg/2 Ml Vial) 20 mg IVPUSH DAILY REPLACED BY [facility]; Protocol Last Admin: 10/10/24 09:27 Dose: 20 mg Glucose (Glucose Gel 15 Gm Gel..Gram.) 15 gm PO Q15M PRN; Protocol PRN Reason: per Hypoglycemia Standing Ord. Insulin Human Lispro (Insulin Lispro 100 Unit/Ml 3 Ml Vial) 0 unit SUBCUT QIDACHS REPLACED BY [facility]; Protocol Last Admin: 10/10/24 08:33 Dose: Not Given Magnesium Hydroxide (Milk Of Magnesia 30 Ml Oral.Susp) 30 ml PO DAILY PRN PRN Reason: Constipation Melatonin (Melatonin 3 Mg Tablet) 6 mg PO BEDTIME PRN PRN Reason: Insomnia Non-Formulary Medication (Lidocaine) 1 patch TOPICAL DAILY PRN PRN Reason: Pain Senna (Sennosides 8.6 Mg Tablet) 8.6 mg PO DAILY REPLACED BY [facility] Sodium Chloride (0.9 % Sodium Chloride Flush 3 Ml Syringe) 3 ml IVFLUSH QSHIFT REPLACED BY [facility] Last Admin: 10/10/24 09:27 Dose: 3 ml Spironolactone (Spironolactone 25 Mg Tablet) 12.5 mg PO DAILY REPLACED BY [facility]; Protocol Home Medications ?Medication ?Instructions ?Recorded ?Confirmed ?Last Taken ?Type sitagliptin phosphate 100 mg 100 mg PO DAILY 11/16/22 10/09/24 06/13/23 History tablet (Januvia) ferrous sulfate 325 mg (65 mg 325 mg PO DAILY 06/14/23 10/09/24 06/13/23 History iron) tablet,delayed release gabapentin 300 mg capsule 300 mg PO TID 06/14/23 10/09/24 06/13/23 History sennosides 8.6 mg tablet (senna) 8.6 mg PO DAILY constipation 06/14/23 10/09/24 06/13/23 History albuterol sulfate 2.5 mg/3 mL 2.5 mg inhalation Q2-4H PRN 07/22/23 10/09/24 Unknown History (0.083 %) solution for nebulization Shortness Of Breath Or Wheezing albuterol sulfate 90 mcg/actuation 2 puff inhalation Q4H PRN 10/09/24 10/09/24 Unknown History aerosol inhaler Shortness Of Breath Or Wheezing amiodarone 200 mg tablet 200 mg PO DAILY 10/09/24 10/09/24 Unknown History amoxicillin 500 mg capsule 500 mg PO TID 10/09/24 10/09/24 Unknown History beclomethasone dipropionate 80 2 inh inhalation BID PRN Shortness 10/09/24 10/09/24 Unknown History mcg/actuation HFA breath activated Of Breath Or Wheezing aerosol (Qvar RediHaler) buspirone 5 mg tablet 1.25 mg PO DAILY 10/09/24 10/09/24 Unknown History cyclobenzaprine 5 mg tablet 5 mg PO TID PRN muscle spasms 10/09/24 10/09/24 Unknown History docusate sodium 100 mg capsule 100 mg PO BID PRN constipation 10/09/24 10/09/24 Unknown History furosemide 20 mg tablet 20 mg PO QID 10/09/24 10/09/24 Unknown History lidocaine 5 % topical patch 1 patch topical DAILY PRN Pain 10/09/24 10/09/24 Unknown History oxycodone 5 mg tablet 5 mg PO Q8H PRN severe pain 10/09/24 10/09/24 Unknown History spironolactone 25 mg tablet 12.5 mg PO DAILY 10/09/24 10/09/24 Unknown History warfarin 1 mg tablet 1 mg PO DAILY 10/09/24 10/09/24 10/08/24 History Physical Exam Vital Signs: Vital Signs: Last Vital Signs Temp 97.5 F 10/10/24 06:29 Pulse 68 10/10/24 08:59 Resp 16 10/10/24 08:59 BP 106/38 L 10/10/24 09:27 Pulse Ox 98 10/10/24 08:59 O2 Del Method Nasal Cannula 10/10/24 08:59 O2 Flow Rate 2 10/10/24 08:59 BMI result Body Mass Index 21.9 Const: General: cooperative, alert, awake, ill appearing and other ( uncomfortable but not in distress) Nutritional Appearance: malnourished Orientation/consciousness: patient oriented x3 HEENT: Head: Yes normocephalic and Yes atraumatic Neck: Neck: Yes trachea midline, Yes supple and Yes JVD ( pulsatile V-waves) Resp: Effort & Inspection: decreased respiratory effort Auscultation: crackles ( at basis) and breath sounds absent ( at bases) Cardio: Jugular venous distension: JVD Palpation: abnormal PMI displaced PMI Rhythm: abnormal rhythm irregularly irregular Heart sounds: S1 normal heart sound present, no click, no gallops and Murmur heart sound present systolic ( the 2 different murmurs, in the right and left parasternal there is a holosystolic murmur consistent with TR. There was also systolic murmur on the left 4th intercostal space suggestive of aortic stenosis) GI: Inspection: Yes distended Auscultation: Hypoactive bowel sounds present Skin: General skin exam: no rashes or lesions noted and ecchymosis Neuro: General: patient oriented x3 and moves all extremities Extrem: General: Yes no clubbing, cyanosis or edema Objective Labs and Meds 10/10/24 05:59 10/10/24 05:59 Lab results: Laboratory Results - last 24 hr 10/09/24 10/09/24 10/09/24 16:29 16:33 17:05 WBC 6.0 RBC 2.06 L D Hgb 6.5 L* D Hct 19.8 L* D MCV 96.1 MCH 31.6 MCHC 32.8 RDW 16.7 H Plt Count 169 D MPV 9.0 L Immature Gran % (Auto) 1.0 H Neut % (Auto) 80.3 H Lymph % (Auto) 8.[address] [place] % (Auto) 8.7 Eos % (Auto) 0.7 Baso % (Auto) 0.8 Lymph # (Auto) 0.[address] [place] # (Auto) 0.5 Eos # (Auto) 0.0 Baso # (Auto) 0.1 Abs Immat Gran (auto) 0.06 H Absolute Neuts (auto) 4.8 Absolute Nucleated RBC 0.000 Nucleated RBC % (auto) 0.0 PT INR Sodium 139 Potassium 4.0 Chloride 105 Carbon Dioxide 25 Anion Gap 13 BUN 80 H Creatinine 1.58 H Estim Creat Clear Calc 28.9 Estimated GFR 33 POC Glucose Random Glucose 114 Calcium 8.7 Magnesium 2.2 Total Bilirubin 1.0 AST 21 ALT 9 Alkaline Phosphatase 160 H B-Natriuretic Peptide Total Protein 5.7 L Albumin 3.5 Urine Color Yellow Urine Appearance Clear Urine pH 6.5 Ur Specific [place] 1.015 Urine Protein Negative Urine Glucose (UA) Negative Urine Ketones Negative Urine Blood Negative Urine Nitrite Negative Ur Leukocyte Esterase Trace H Urine RBC 0-2 Urine WBC 0-5 Ur Squamous Epith Cells 0-2 Urine Bacteria None Seen Hyaline Casts 0-2 Stool Occult Blood Influenza Type A (PCR) NEGATIVE Influenza Type B (PCR) NEGATIVE RSV RNA Qual (PCR) NEGATIVE SARS-CoV-2 RNA (RT-PCR) NEGATIVE Blood Type O Positive Antibody Screen NEGATIVE Crossmatch See Detail 10/09/24 10/10/24 10/10/24 22:51 01:12 05:59 WBC 9.0 7.6 RBC 2.77 L D 2.79 L Hgb 8.7 L D 8.5 L Hct 26.1 L D 26.4 L MCV 94.2 94.6 MCH 31.4 30.5 MCHC 33.3 32.2 RDW 16.2 H 16.4 H Plt Count 177 184 MPV 9.0 L 9.4 Immature Gran % (Auto) 0.9 H Neut % (Auto) 79.9 H Lymph % (Auto) 8.[address] [place] % (Auto) 10.0 Eos % (Auto) 0.4 Baso % (Auto) 0.8 Lymph # (Auto) 0.[address] [place] # (Auto) 0.8 Eos # (Auto) 0.0 Baso # (Auto) 0.1 Abs Immat Gran (auto) 0.07 H Absolute Neuts (auto) 6.1 Absolute Nucleated RBC 0.020 H 0.020 H Nucleated RBC % (auto) 0.2 0.3 H PT 88.8 H 88.5 H INR 7.6 H* D 7.6 H* Sodium 140 Potassium 4.2 Chloride 107 Carbon Dioxide 20 L Anion Gap 17 BUN 79 H Creatinine 1.64 H Estim Creat Clear Calc 27.9 Estimated GFR 31 POC Glucose Random Glucose 98 Calcium 8.8 Magnesium Total Bilirubin AST ALT Alkaline Phosphatase B-Natriuretic Peptide 691 H Total Protein Albumin Urine Color Urine Appearance Urine pH Ur Specific [place] Urine Protein Urine Glucose (UA) Urine Ketones Urine Blood Urine Nitrite Ur Leukocyte Esterase Urine RBC Urine WBC Ur Squamous Epith Cells Urine Bacteria Hyaline Casts Stool Occult Blood POSITIVE Influenza Type A (PCR) Influenza Type B (PCR) RSV RNA Qual (PCR) SARS-CoV-2 RNA (RT-PCR) Blood Type Antibody Screen Crossmatch 10/10/24 08:19 WBC RBC Hgb Hct MCV MCH MCHC RDW Plt Count MPV Immature Gran % (Auto) Neut % (Auto) Lymph % (Auto) [place] % (Auto) Eos % (Auto) Baso % (Auto) Lymph # (Auto) [place] # (Auto) Eos # (Auto) Baso # (Auto) Abs Immat Gran (auto) Absolute Neuts (auto) Absolute Nucleated RBC Nucleated RBC % (auto) PT INR Sodium Potassium Chloride Carbon Dioxide Anion Gap BUN Creatinine Estim Creat Clear Calc Estimated GFR POC Glucose 93 Random Glucose Calcium Magnesium Total Bilirubin AST ALT Alkaline Phosphatase B-Natriuretic Peptide Total Protein Albumin Urine Color Urine Appearance Urine pH Ur Specific [place] Urine Protein Urine Glucose (UA) Urine Ketones Urine Blood Urine Nitrite Ur Leukocyte Esterase Urine RBC Urine WBC Ur Squamous Epith Cells Urine Bacteria Hyaline Casts Stool Occult Blood Influenza Type A (PCR) Influenza Type B (PCR) RSV RNA Qual (PCR) SARS-CoV-2 RNA (RT-PCR) Blood Type Antibody Screen Crossmatch Assessment and Plan (1) Decompensated heart failure: Status: Acute decompensated congestive heart failure in this lady with significant underlying cardiac issues including severe LV systolic dysfunction secondary to nonischemic cardiomyopathy, severe aortic stenosis, severe tricuspid regurgitation with pulmonary hypertension and elevated right atrial pressures as well as chronic atrial fibrillation as well as chronic kidney disease requiring dialysis intermittently as well as salt blood pressure and intolerance to multiple medications. She has had advanced heart failure syndrome and multiple hospitalization related to the same. She has done poorly with overall medical therapy and there has been concerned about pursuing percutaneous treatment of her aortic as well as tricuspid well pathology although felt that she was too high risk and was not able to be performed at [facility] was referred to [facility] for the same although she has not been able Interventional Cardiology at [facility]. She comes with severe anemia related to Mibi GI blood loss which appears to be chronic and not torrential and acute. She also had supratherapeutic INR which could potentially be responsible for slow GI bleed. At this point time I would gently diurese her with IV Lasix 20 mg IV push b.i.d. with strict intake and output chart. Transfuse to maintain hematocrit over 30. Continue spironolactone therapy. Strict intake and output chart needs to be pursued. Close observation to renal function needs to be pursued as well. Overall prognosis is guarded. I would also consider palliative care consultation for her after discussing with her family. (2) H/O mitral valve replacement with mechanical valve: Status: Acute Mechanical mitral valve in place, patient presenting with severe anemia with positive guaiac stool. Her INR was noted to be supratherapeutic. At this point time I would avoid reversing it acutely with vitamin K as this would lead to higher risk of thrombotic complications. She was not actively interventionally bleeding at this point time. Continue to monitor her hematocrit closely. If there is any evidence of significant GI bleed we can at that point time reverse her supratherapeutic INR with vitamin K. Till then will just let her drift her INR down to the therapeutic range. Transfuse as needed. Will follow with you. Greater than 40 minutes was spent in managing his complex care. Procedures Date of Service Date of Service: 10/10/24
[2024-10-10] MEDS: Spironolactone 25 MG TABLET 12.5 MG PO (11:28)
[2024-10-10] MEDS: Sennosides 8.6 MG TABLET PO (11:28)
[2024-10-10] MEDS: Amiodarone HCL 200 MG TABLET PO (11:28)
[2024-10-10] MEDS: busPIRone HCl 5 MG TABLET 1.25 MG PO (11:28)
--- NOTE | 2024-10-10 11:59 | PM.EVENT ---
Event Note Date of Service: 10/10/24 Event Note: GI Consult-Full note dictated. History primarily from her and EMR. D/W Dr. Rosales as well. Imp: Acute on chronic anemia with Heme + stool but no signs or symptoms of acute GI issues nor GI bleeding in the setting of severe cardiac disease and a supratherapeutic INR on Coumadin. Her CT was negative for a retroperitoneal hematoma as per the report or any other acute GI process. Her can not recall if she has had any recent EGD or Colonoscopy, but she is currently not a candidate for any endoscopic evaluation. Diff dx: GI tract angiodysplasias, GI neoplasm, gastritis, esophagitis, silent ulcer disease. Rec: Supportive care as per cardiology and hospitalist recommendations with avoidance of any invasive procedures. Transfuse PRN. Diet as tolerated. Due to the mechanical valve and no signs of active bleeding the plan is to hold off on reversal of the Coumadin with Vit K or FFP. If active bleeding develops she would need transfer to a tertiary center for GI and/or IR evaluation. D/W her in detail via phone. He is comfortable with that plan. Thanks Time Spent With Patient Time: Total time managing care of this patient today ____ minutes.
[2024-10-10 13:18] LABS: Glucose, Whole Blood 67 mg/dL (60-115)
--- NOTE | 2024-10-10 14:04 | P.EN_ITS ---
Event Note Date of Service: 10/10/24 Event Note: Seen and examined this morning Follow-up for anemia sleepy difficult to obtain history - per nurse - patient awake, talking and interactive prior to my evaluation and subsequently was evaluated by Cardiology and GI and was awake and oriented Patient is a 64-year-old female with a history of asthma, hyperlipidemia,diabetes, mitral stenosis s/p replacement with mechanical valve, systolic heart failure with EF of 25-30 % on echo 07/2023, and persistent AFib, who presented to the ED due to abdominal pain for an unknown period of time as well as back pain and or pain. ED she was found to be critically anemic and guaiac positive. She was transfused with 2 units PRBC. INR was supratherapeutic at 7.6. Initial hemoglobin was 6.5, repeat 8.7, vitamin K was deferred. acute on chronic anemia no evidence of acute blood loss s/p2U rbc hold Coumadin Avoid vitamin K to avoid risk of thrombotic complications Repeat H/H this evening NPO Seen by GI- Due to complicated cardiac history, recommend conservative management, transfuse as needed to keep hematocrit above 30; if develops active bleeding, would need transfer to tertiary care facility Supratherapeutic INR In the setting of mechanical mitral valve hold Coumadin until INR closer to 2-3 acute on chronic HFrEF History of severe LV systolic dysfunction secondary to nonischemic cardiomyopathy, severe aortic stenosis, severe tricuspid regurgitation, pulmonary hypertension She has done poorly with overall medical therapy and there has been concerned about pursuing percutaneous treatment of her aortic as well as tricuspid well pathology although felt that she was too high risk and was not able to be performed at [facility] was referred to [place] Bilateral pleural effusion/pulmonary edema Seen by cardiology-recommend increase Lasix to IV 20 b.i.d. Continue Aldactone monitor Is&Os overall guarded prognosis given complex cardiac history - called and discussed with daughter/pt HCP, she is aware of heart issues. discussed cardiology rec of palliative care, pt listed as full code; she will discuss with her dad and pt this evening about overall goals. for now pt will remain full code CKD scr up and down, around baseline follow closely Prolonged QTC Okay to continue amiodarone per Cardiology electrolytes normal avoid QT prolonging agents Mild persistent asthma, no acute exacerbation Continue baseline meds Type 2 diabetes Hold Januvia sliding scale insulin clear liquids Persistent AFib EKG with AFib, rate controlled holding Coumadin due to supratherapeutic INR and GI bleed continue amiodarone Chronic back pain continue lidocaine patch hold gabapentin and cyclobenzaprine to prevent oversedation Full code VTE prophylaxis: Pneumoboots, resume Coumadin when appropriate Patient with acute anemia and supratherapeutic INR, requiring admission for at least 2 midnights stay for further evaluation and monitoring, specialist evaluation Time Spent With Patient Time: Total time managing care of this patient today ____ minutes.
--- NOTE | 2024-10-10 15:41 | MHC.CM.PN ---
IMM 10/10/24, Pt lives with her , she has a nurse that comes once a week for her coumadin testing, from [facility]. Her dtr, Melinda Kearney is her HCP, copy requested. She does not have home health services , she uses a walker for DME. Kathy to transport home at [place]. DCP: home with services. CM to follow for DC needs.
[2024-10-10 16:39] LABS: Glucose, Whole Blood 76 mg/dL (60-115)
[2024-10-10 16:39] LABS: Glucose, Whole Blood 88 mg/dL (60-115)
[2024-10-10 17:18] LABS: Hematocrit 27.2 % (37.0-47.0); Hemoglobin 8.8 g/dl (12.0-16.0)
[2024-10-10] MEDS: Milk of Magnesia 30 ML ORAL.SUSP PO (17:32)
[2024-10-10] MEDS: Lidocaine 4 % Patch ADH..PATCH 1 PATCH TRANSDERMA (17:33)
[2024-10-10] MEDS: oxyCODONE HCl Immed Release 5 MG TABLET PO (18:14)
--- NOTE | 2024-10-10 18:17 | PC.NURSE ---
Adimitted from ED to [facility] at 16:20 viA BED . Pt awake ,oriented , restless, getting up from the bed to standing position frequently, OOB to recliner for 10 min than got up stated that she is in a lot of pain 9/ 10 chronic to lower back. Pt stated that she is taking Oxycodone Q6 HRS for pain. Lidocaine patch applied , Oxycodone ordered for pain by HERO Gavin.
[2024-10-10 21:57] LABS: Glucose, Whole Blood 162 mg/dL (60-115)
--- NOTE | 2024-10-10 22:50 | CONS_ITS ---
DATE OF SERVICE: 10/10/2024 REASON FOR CONSULTATION: Anemia and heme-positive stool. 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 Rosales. HISTORY OF PRESENT ILLNESS: The patient is a 64-year-old female with underlying history of significant cardiovascular disease including a prior mechanical mitral valve replacement many years ago with associated heart failure and cardiomyopathy, requiring multiple hospitalizations. She also has a component of aortic stenosis, tricuspid regurgitation, pulmonary hypertension, and renal insufficiency. She came to the hospital due to a significant anemia with a hemoglobin of 6.5 on admission. Her hemoglobin in early August was 9.7. She does have a chronic anemia and has received transfusions in the past, although primarily at [facility]. The patient's reports that she did not have any particular GI complaints at home. She has been eating fairly well and without any signs of dysphagia nor vomiting. There has been no report of melena nor hematochezia at home. There has been no report of abdominal pain. She does take the Coumadin at home, but does not use any aspirin nor NSAIDs. She is a former smoker and does not use any alcohol. Workup in the ER revealed dark brown stool which is heme-positive. She has received 2 units of blood in the ER. Again, there has been no sign of any active bleeding in the ER. The patient's cannot recall if she has any recent or previous upper endoscopies or colonoscopies. MEDICATIONS: At home; included furosemide, albuterol inhaler, amiodarone, buspirone, cyclobenzaprine, Colace, iron, furosemide, gabapentin, lidocaine patch, oxycodone, Senokot, spironolactone, Coumadin, sitagliptin. PAST MEDICAL HISTORY: Significant and severe cardiac disease as above. Diabetes mellitus. Renal insufficiency. Reported emphysema. There is no history of actual NH or stroke. Her reports that her only surgery is that of the previous mitral valve replacement as far as he can recall. However, according to the chart, she has a history of ovarian cancer, but I do not know the treatment that she had for that. Atrial fibrillation. SOCIAL HISTORY: She is and lives with her . She presently does not smoke nor use any alcohol. FAMILY HISTORY: Noncontributory. REVIEW OF SYSTEMS: CONSTITUTIONAL: She tends of feel a weak and some shortness of breath at home. CARDIAC: No recent chest pain. PULMONARY: No coughing nor hemoptysis. GI: As above. PHYSICAL EXAMINATION: GENERAL: The patient is a chronically ill-appearing female. She is sleepy but does awaken to verbal stimuli and seems to answer some questions appropriately. She otherwise appears comfortable. SKIN: Warm and dry. HEENT: Anicteric sclerae. NECK: Supple. CARDIAC: Normal S1, S2 with a systolic murmur. ABDOMEN: Soft, nondistended with normal bowel sounds and nontender. LABORATORIES: Hemoglobin 6.5 with MCV of 96, white blood cell count 6000 with platelet counts 169,000. PT was 88 with an INR of 7.6. Normal electrolytes. BUN 79, creatinine 1.6. Normal LFTs except for an alkaline phosphatase 160. BNP level was 691. Albumin was 3.5. Stool was heme-positive in the lab. Nasal swab was negative for influenza, RSV, and COVID. The CT scan of her abdomen and pelvis on admission did not describe any acute GI pathology and the report does not describe any sign of retroperitoneal hematoma. IMPRESSION: Given the patient's clinical history, I suspect obviously her chronic anemia may be multifactorial in relation to perhaps some chronic blood loss while on Coumadin, her renal insufficiency, and her overall chronic illness. As far as this more acute and significant drop in hemoglobin that could also certainly be related to chronic GI blood losses, which became more acute on the supratherapeutic INR of Coumadin. She may have small bowel or other angiodysplasias, silent ulcer disease or gastritis, or even GI neoplasm. At this point, she is not showing any signs of active bleeding. I did review potential reversal of the Coumadin to some degree with the hospitalist and Dr. Rosales, but they feel that given that she is not actively bleeding and has a mechanical valve and they would rather hold off on vitamin K or FFP for the time being and just let the INR drift down slowly. At this point, she is certainly not a candidate for any type of endoscopic evaluation. At this point, I would recommend continued supportive care as per the recommendations from Cardiology and the hospitalist service. I would transfuse her as needed in regard to packed red blood cells. Her diet can be advanced as tolerated. If there is no signs of any active bleeding, I would continue the plan of letting the INR drift down slowly. If active bleeding develops, then she would need to be treated with some FFP at least and I would then recommend transfer to a tertiary center for either GI and/or interventional radiology evaluation. This has all been discussed with her in detail on the phone and he is comfortable with this plan. Thanks for consultation. MD MICHELLE Hernandez/LISA / [phone]
[2024-10-11] VITALS (10 sets, daily range): BP systolic 97–150; BP diastolic 46–77; PULSE 75–96; RESP 14–20; TEMP 36.1–37.2; O2SAT 92–100
[2024-10-11] MEDS: oxyCODONE HCl Immed Release 5 MG TABLET PO ×3 (00:26→17:14)
[2024-10-11 07:49] LABS: MANUAL DIFF FLAG NO
[2024-10-11 07:56] LABS: Basophils Absolute Auto 0.1 X10*3/uL (0.0-0.2); Basophils Percent Auto 1.1 % (0-2); Eosinophils Absolute Auto 0.2 X10*3/uL (0.0-0.4); Eosinophils Percent Auto 3.9 % (0-4); Hematocrit 25.6 % (37.0-47.0); Hemoglobin 8.4 g/dl (12.0-16.0); Imm Gran Abs Auto 0.03 X10*3/uL (0.00-0.03); Imm Gran Pct Auto 0.7 % (0.0-0.4); Lymphocytes Absolute Auto 0.5 X10*3/uL (1.2-4.9); Lymphocytes Percent Auto 11.2 % (20-40); Mean Corpuscular HGB Conc 32.8 g/dl (31.0-35.0); Mean Corpuscular Hemoglobin 31.1 pg (27.0-33.0); Mean Corpuscular Volume 94.8 fL (80.0-98.0); Mean Platelet Volume 8.8 fL (9.4-12.3); Monocytes Absolute Auto 0.5 X10*3/uL (0.1-1.2); Monocytes Percent Auto 11.2 % (2-11); Neutrophils Absolute Auto 3.3 x10*3/uL (2.0-8.3); Neutrophils Percent Auto 71.9 % (45-73); Platelet Count 188 X10*3/uL (160-400); Red Cell Distribution Width 17.1 % (11.0-16.0); White Blood Count 4.6 X10*3/uL (4.8-10.8)
[2024-10-11] MEDS: Amiodarone HCL 200 MG TABLET PO (08:02)
[2024-10-11] MEDS: busPIRone HCl 5 MG TABLET 1.25 MG PO (08:02)
[2024-10-11] MEDS: Sennosides 8.6 MG TABLET PO (08:02)
[2024-10-11] MEDS: Spironolactone 25 MG TABLET 12.5 MG PO (08:03)
[2024-10-11] MEDS: 0.9 % Sodium Chloride Flush 3 ML SYRINGE IVFLUSH ×3 (08:04→20:00)
[2024-10-11] MEDS: Ferrous Sulfate 324 MG TABLET.DR PO (08:04)
[2024-10-11] MEDS: Furosemide 20 MG/2 ML VIAL IVPUSH ×2 (08:04→17:14)
[2024-10-11 08:11] LABS: Prothrombin Time 105.3 SEC (10.9-12.4)
[2024-10-11 08:16] LABS: Glucose, Whole Blood 103 mg/dL (60-115)
[2024-10-11 08:21] LABS: Anion Gap 14 (12-20); Blood Urea Nitrogen 77 mg/dL (9-16); Calcium 8.4 mg/dL (8.4-10.2); Carbon Dioxide 26 mmol/L (22-29); Chloride 103 mmol/L (96-108); Creatinine Clr Calc Pharmacy 27.9; Estimated Glomerular Filt Rate 31; Glucose Random 105 mg/dL (60-115); Potassium 3.8 mmol/L (3.3-5.1); Sodium 139 mmol/L (135-145)
[2024-10-11 13:28] LABS: Glucose, Whole Blood 134 mg/dL (60-115)
--- NOTE | 2024-10-11 13:34 | HO.WOUND ---
Wound Consult: Initial 64yr old? admitted to [facility] on 02/15/24 - See progress notes and H&P for detailed history.? Wound consult placed for Bilateral forearm skin teats.? Patient agreeable to assessment and photo documentation.? Bilateral Forearm Etiology: Skin tears Wound Bed: dried red wound beds Drainage / Odor: sanguineous drainage to right wrist Edges: ? irregular Yahaira wound: ?dry thin frail skin No Induration, Fluctuance or Warmth noted Pain: tenderness reported Goals of Treatment: ? Moist wound healing with xeroform Recommendations: 1. Turn and Reposition every 2 hours and as needed for patient comfort.? Use pillows or wedges to support off loading positions. 2. Off Load all bony prominences with use of pillows and heel boots if needed.? Apply Preventative foams where needed. ? 3. Monitor for incontinence and moisture control, use barrier creams when needed for prevention and treatment. 4. Provide adequate and supplemental nutrition.? 5. When applicable maintain blood glucose levels per Providers order. Bilateral Forearm Skin Tears - Cleanse with normal saline, pat dry. ?Apply Xeroform secure with Abd pads, gauze wrap and tape. Change Daily. ?Do not apply tape to patient?s skin.? Avoid Adhesive application to skin - when necessary, apply skin prep prior.? Re-consult wound care Nurse for wound deterioration or wound changes.
--- NOTE | 2024-10-11 15:00 | HO.PM.IMPN ---
Subjective Subjective Date of Service: 10/11/24 Interval History: Seen and examined this morning follow up for anemia awake, alert feeling well this morning. Denies shortness of breath. no abdominal pain. had BM yesterday Denies any bleeding Review of Systems Review of Systems: Yes all other systems are reviewed and are negative Constitutional Constitutional: Denies chills and Denies fever(s) Cardiovascular Cardiovascular: Denies chest pain Physical Exam Vital Signs: Vital Signs: Last Vital Signs Temp 97.6 F 10/11/24 12:56 Pulse 77 10/11/24 12:56 Resp 16 10/11/24 12:56 BP 119/59 L 10/11/24 12:56 Pulse Ox 95 10/11/24 11:25 O2 Del Method Room Air 10/11/24 11:25 O2 Flow Rate 2 10/10/24 08:59 BMI result Body Mass Index 21.9 Objective Data Active Medications Acetaminophen (Acetaminophen 325 Mg Tablet) 975 mg PO Q6H PRN PRN Reason: Pain, Mild 1-3,fever,headache Albuterol Sulfate (Albuterol Sulfate 90 Mcg 8 Gm Inhaler) 2 puff INHALE Q4H PRN PRN Reason: Shortness Of Breath Or Wheezing Albuterol Sulfate (Albuterol Sulfate (0.083%) 2.5 Mg/3 Ml Vial.Neb) 2.5 mg INHALE Q2H PRN PRN Reason: Shortness Of Breath Or Wheezing Amiodarone HCl (Amiodarone Hcl 200 Mg Tablet) 200 mg PO DAILY [facility] Last Admin: 10/11/24 08:02 Dose: 200 mg Documented By: SARAH Buspirone HCl (Buspirone Hcl 5 Mg Tablet) 1.25 mg PO DAILY [facility] Last Admin: 10/11/24 08:02 Dose: 1.25 mg Documented By: SARAH Calcium Carbonate (Calcium Carbonate 750 Mg Tab.Chew) 750 mg PO Q4H PRN PRN Reason: Heartburn Cyclobenzaprine HCl (Cyclobenzaprine Hcl 5 Mg Tablet) 5 mg PO TID PRN PRN Reason: muscle spasms Dextrose (Dextrose 50 % 25 Gm/50 Ml Syringe) 25 gm IVPUSH Q15M PRN; Protocol PRN Reason: per Hypoglycemia Standing Ord. Docusate Sodium (Docusate Sodium 100 Mg Capsule) 100 mg PO BID [facility] Ferrous Sulfate (Ferrous Sulfate 324 Mg Tablet.) 324 mg PO DAILY [facility] Last Admin: 10/11/24 08:04 Dose: 324 mg Documented By: SARAH Fluticasone Propionate (Fluticasone Propionate 250 Mcg Blst.W.Dev) 1 puff INHALE RBID PRN PRN Reason: Shortness Of Breath Or Wheezing Furosemide (Furosemide 20 Mg/2 Ml Vial) 20 mg IVPUSH BID@0900,1800 [facility]; Protocol Last Admin: 10/11/24 08:04 Dose: 20 mg Documented By: SARAH Glucose (Glucose Gel 15 Gm Gel..Gram.) 15 gm PO Q15M PRN; Protocol PRN Reason: per Hypoglycemia Standing Ord. Insulin Human Lispro (Insulin Lispro 100 Unit/Ml 3 Ml Vial) 0 unit SUBCUT QIDACHS [facility]; Protocol Last Admin: 10/11/24 11:31 Dose: Not Given Documented By: SARAH Non-Admin Reason: No Insulin Coverage Lidocaine (Lidocaine 4 % Patch Adh..Patch) 1 patch TRANSDERMA DAILY PRN PRN Reason: Pain Last Admin: 10/10/24 17:33 Dose: 1 patch Documented By: SYDNIE Magnesium Hydroxide (Milk Of Magnesia 30 Ml Oral.Susp) 30 ml PO DAILY PRN PRN Reason: Constipation Last Admin: 10/10/24 17:32 Dose: 30 ml Documented By: SYDNIE Melatonin (Melatonin 3 Mg Tablet) 6 mg PO BEDTIME PRN PRN Reason: Insomnia Oxycodone HCl (Oxycodone Hcl Immed Release 5 Mg Tablet) 5 mg PO Q6H PRN PRN Reason: severe pain Last Admin: 10/11/24 11:24 Dose: 5 mg Documented By: SARAH Senna (Sennosides 8.6 Mg Tablet) 8.6 mg PO DAILY [facility] Last Admin: 10/11/24 08:02 Dose: 8.6 mg Documented By: SARAH Sodium Chloride (0.9 % Sodium Chloride Flush 3 Ml Syringe) [facility] Last Admin: 10/11/24 11:25 Dose: 3 ml Documented By: SARAH Spironolactone (Spironolactone 25 Mg Tablet) 12.5 mg PO DAILY [facility]; Protocol Last Admin: 10/11/24 08:03 Dose: 12.5 mg Documented By: SARAH Labs 10/11/24 07:35 10/11/24 07:35 Labs: Laboratory Results - last 24 hr 10/09/24 10/09/24 10/10/24 16:33 17:05 15:50 MCV MCH MCHC RDW Plt Count MPV Immature Gran % (Auto) Neut % (Auto) Lymph % (Auto) Cannon % (Auto) Eos % (Auto) Baso % (Auto) Lymph # (Auto) Cannon # (Auto) Eos # (Auto) Baso # (Auto) Abs Immat Gran (auto) Absolute Neuts (auto) Absolute Nucleated RBC Nucleated RBC % (auto) Smear Path Review SEE NOTE PT INR Anion Gap Estim Creat Clear Calc Estimated GFR POC Glucose 76 Random Glucose Calcium Blood Type O Positive Antibody Screen NEGATIVE Crossmatch See Detail 10/10/24 10/10/24 10/11/24 16:26 20:40 07:11 MCV MCH MCHC RDW Plt Count MPV Immature Gran % (Auto) Neut % (Auto) Lymph % (Auto) Cannon % (Auto) Eos % (Auto) Baso % (Auto) Lymph # (Auto) Cannon # (Auto) Eos # (Auto) Baso # (Auto) Abs Immat Gran (auto) Absolute Neuts (auto) Absolute Nucleated RBC Nucleated RBC % (auto) Smear Path Review PT INR Anion Gap Estim Creat Clear Calc Estimated GFR POC Glucose 88 162 H 103 Random Glucose Calcium Blood Type Antibody Screen Crossmatch 10/11/24 10/11/24 07:35 11:30 MCV 94.8 MCH 31.1 MCHC 32.8 RDW 17.1 H Plt Count 188 MPV 8.8 L Immature Gran % (Auto) 0.7 H Neut % (Auto) 71.9 Lymph % (Auto) 11.2 L Cannon % (Auto) 11.2 H Eos % (Auto) 3.9 Baso % (Auto) 1.1 Lymph # (Auto) 0.5 L Cannon # (Auto) 0.5 Eos # (Auto) 0.2 Baso # (Auto) 0.1 Abs Immat Gran (auto) 0.03 Absolute Neuts (auto) 3.3 Absolute Nucleated RBC 0.000 Nucleated RBC % (auto) 0.0 Smear Path Review PT 105.3 H INR 9.0 H* Anion Gap 14 Estim Creat Clear Calc 27.9 Estimated GFR 31 POC Glucose 134 H Random Glucose 105 Calcium 8.4 Blood Type Antibody Screen Crossmatch Assessment and Plan (1) Decompensated heart failure: Status: Acute (2) Supratherapeutic INR: Status: Acute (3) Anemia: Status: Acute Plan This is a 64-year-old female with a history of asthma, hyperlipidemia,diabetes, mitral stenosis s/p replacement with mechanical valve, systolic heart failure with EF of 25-30 % on echo 07/2023, and persistent AFib, who presented to the ED due to abdominal pain for an unknown period of time as well as back pain. ED she was found to be critically anemic and guaiac positive. She was transfused with 2 units PRBC. INR was supratherapeutic at 7.6. Initial hemoglobin was 6.5, repeat 8.7, vitamin K was deferred. acute on chronic anemia no evidence of acute blood loss s/p2U rbc. H/H relatively stable, we will transfuse additional unit to keep hematocrit above 30 as per Cardiology recommendation hold Coumadin Avoid vitamin K to avoid risk of thrombotic complications due to mechanical mitral valve Seen by GI- Due to complicated cardiac history, recommend conservative management, transfuse as needed to keep hematocrit above 30; if develops active bleeding, would need transfer to tertiary care facility Supratherapeutic INR INR trending up to 9 As the patient has no signs of overt bleeding/life-threatening bleeding we will hold vitamin K due to presence of mechanical mitral valve to prevent complication of thrombosis hold Coumadin until INR closer to 2-3 follow INR acute on chronic HFrEF History of severe LV systolic dysfunction secondary to nonischemic cardiomyopathy, severe aortic stenosis, severe tricuspid regurgitation, pulmonary hypertension She has done poorly with overall medical therapy and there has been concerned about pursuing percutaneous treatment of her aortic as well as tricuspid well pathology although felt that she was too high risk and was not able to be performed at [facility] was referred to [place] Bilateral pleural effusion/pulmonary edema Seen by cardiology-recommend increase Lasix to IV 20 b.i.d. Continue Aldactone monitor Is&Os overall guarded prognosis given complex cardiac history - called and discussed with daughter/pt HCP, she is aware of heart issues. discussed cardiology rec of palliative care, pt listed as full code; she will discuss with her dad and pt about overall goals. for now pt will remain full code on room air today CKD3 scr up and down, around baseline follow closely Prolonged QTC Okay to continue amiodarone per Cardiology electrolytes normal avoid QT prolonging agents Mild persistent asthma, no acute exacerbation Continue baseline meds Type 2 diabetes Hold Januvia sliding scale insulin Persistent AFib EKG with AFib, rate controlled holding Coumadin due to supratherapeutic INR and GI bleed continue amiodarone Chronic back pain continue lidocaine patch hold gabapentin and cyclobenzaprine to prevent oversedation continue oxycodone Full code VTE prophylaxis: Pneumoboots, resume Coumadin when appropriate Patient with acute anemia and supratherapeutic INR, requiring ongoing inpatient stay for further evaluation and monitoring, specialist evaluation Quality Stroke Does the patient have a stroke diagnosis?: No VTE Prior VTE?: No VTE Risk Level:: Medical - moderate - high VTE Device Contraindication: N/A - Device Ordered VTE Drug Contraindication: Treatment Not Indicated
[2024-10-11 15:16] LABS: Glucose, Whole Blood 144 mg/dL (60-115)
--- NOTE | 2024-10-11 15:19 | P.CDIM_ITS ---
PROVIDER RESPONSE TEXT: To clarify, the appropriate diagnosis supported by the clinical indicators: stage 3 QUERY TEXT: PHYSICIAN'S DOCUMENTATION REQUEST Date of Query: 10/11/2024 10:03 AM EDT Patient Name: Ruby Anthony Admit Date: 10/10/2024 Dear Leslye Hassan PA, A review of the medical record indicates additional documentation may be needed. Please review below and update the documentation accordingly. Clinical Indicators: PMH: CKD Creatinine 1.64 Est GFR 31.0 dyspnea, fatigue, weakness, nausea Please clarify which of the following accurately represents the patient's stage of CKD: stage 1 stage 2 stage 3 stage 4 ESRD - CKD V now requiring permanent dialysis and/or transplant Other (explain) Clinically unable to determine (explain) Thank you, Ale Ramos RN Use of terms such as suspected, likely, concern for, or probable (associated with a specific diagnosi s that is being evaluated, monitored, or treated as if it exists) are acceptable and can be coded in the inpatient se tting, when documented at the time of discharge. Please use your independent medical judgment in providing your response. THIS QUERY IS PART OF THE PERMANENT MEDICAL RECORD
--- NOTE | 2024-10-11 15:31 | PM.PNCARD ---
Subjective Subjective Date of Service: 10/11/24 Principal diagnosis: CHF, valvular heart disease. Interval history: Patient says she was feeling better. However continues to have symptoms of fatigue. Shortness of breath is improved. Unsure about overall urine output. Creatinine is stable. Review of Systems Constitutional: Reports fatigue and Reports weakness Eyes: Reports no additional eye complaints Cardiovascular: Denies chest pain, Denies lightheadedness, Denies Loss of Consciousness, Denies palpitations and Reports dyspnea on exertion Respiratory: Reports no additional respiratory complaints and Reports dyspnea on exertion Reports weakness Endocrine: Reports fatigue and Denies palpitations Physical Exam Vital Signs: Last Vital Signs Temp 99.0 F 10/11/24 15:09 Pulse 96 10/11/24 15:09 Resp 18 10/11/24 15:09 BP 133/73 10/11/24 15:09 Pulse Ox 94 10/11/24 15:09 O2 Del Method Room Air 10/11/24 15:09 O2 Flow Rate 2 10/10/24 08:59 BMI result Body Mass Index 21.9 Const General: cooperative, alert, awake, ill appearing and other ( uncomfortable but not in distress) Nutritional Appearance: malnourished Orientation/consciousness: patient oriented x3 HEENT Head: Yes normocephalic and Yes atraumatic Neck Neck: Yes trachea midline, Yes supple and Yes JVD ( pulsatile V-waves) Resp Effort & Inspection: decreased respiratory effort Auscultation: crackles ( at basis) and breath sounds absent ( at bases) Cardio Jugular venous distension: JVD Palpation: abnormal PMI displaced PMI Rhythm: abnormal rhythm irregularly irregular Heart sounds: S1 normal heart sound present, no click, no gallops and Murmur heart sound present systolic ( the 2 different murmurs, in the right and left parasternal there is a holosystolic murmur consistent with TR. There was also systolic murmur on the left 4th intercostal space suggestive of aortic stenosis) GI Inspection: Yes distended Auscultation: Hypoactive bowel sounds present Skin General skin exam: no rashes or lesions noted and ecchymosis Neuro General: patient oriented x3 and moves all extremities Extrem General: Yes no clubbing, cyanosis or edema Objective Labs and Meds 10/11/24 07:35 10/11/24 07:35 Lab results: Laboratory Results - last 24 hr 10/09/24 10/09/24 10/10/24 16:33 17:05 15:50 WBC RBC Hgb Hct MCV MCH MCHC RDW Plt Count MPV Immature Gran % (Auto) Neut % (Auto) Lymph % (Auto) Cloud % (Auto) Eos % (Auto) Baso % (Auto) Lymph # (Auto) Cloud # (Auto) Eos # (Auto) Baso # (Auto) Abs Immat Gran (auto) Absolute Neuts (auto) Absolute Nucleated RBC Nucleated RBC % (auto) Smear Path Review SEE NOTE PT INR Sodium Potassium Chloride Carbon Dioxide Anion Gap BUN Creatinine Estim Creat Clear Calc Estimated GFR POC Glucose 76 Random Glucose Calcium Blood Type O Positive Antibody Screen NEGATIVE Crossmatch See Detail 10/10/24 10/10/24 10/10/24 16:26 16:52 20:40 WBC RBC Hgb 8.8 L Hct 27.2 L MCV MCH MCHC RDW Plt Count MPV Immature Gran % (Auto) Neut % (Auto) Lymph % (Auto) Cloud % (Auto) Eos % (Auto) Baso % (Auto) Lymph # (Auto) Cloud # (Auto) Eos # (Auto) Baso # (Auto) Abs Immat Gran (auto) Absolute Neuts (auto) Absolute Nucleated RBC Nucleated RBC % (auto) Smear Path Review PT INR Sodium Potassium Chloride Carbon Dioxide Anion Gap BUN Creatinine Estim Creat Clear Calc Estimated GFR POC Glucose 88 162 H Random Glucose Calcium Blood Type Antibody Screen Crossmatch 10/11/24 10/11/24 10/11/24 07:11 07:35 11:30 WBC 4.6 L RBC 2.70 L Hgb 8.4 L Hct 25.6 L MCV 94.8 MCH 31.1 MCHC 32.8 RDW 17.1 H Plt Count 188 MPV 8.8 L Immature Gran % (Auto) 0.7 H Neut % (Auto) 71.9 Lymph % (Auto) 11.2 L Cloud % (Auto) 11.2 H Eos % (Auto) 3.9 Baso % (Auto) 1.1 Lymph # (Auto) 0.5 L Cloud # (Auto) 0.5 Eos # (Auto) 0.2 Baso # (Auto) 0.1 Abs Immat Gran (auto) 0.03 Absolute Neuts (auto) 3.3 Absolute Nucleated RBC 0.000 Nucleated RBC % (auto) 0.0 Smear Path Review PT 105.3 H INR 9.0 H* Sodium 139 Potassium 3.8 Chloride 103 Carbon Dioxide 26 Anion Gap 14 BUN 77 H Creatinine 1.64 H Estim Creat Clear Calc 27.9 Estimated GFR 31 POC Glucose 103 134 H Random Glucose 105 Calcium 8.4 Blood Type Antibody Screen Crossmatch 10/11/24 15:12 WBC RBC Hgb Hct MCV MCH MCHC RDW Plt Count MPV Immature Gran % (Auto) Neut % (Auto) Lymph % (Auto) Cloud % (Auto) Eos % (Auto) Baso % (Auto) Lymph # (Auto) Cloud # (Auto) Eos # (Auto) Baso # (Auto) Abs Immat Gran (auto) Absolute Neuts (auto) Absolute Nucleated RBC Nucleated RBC % (auto) Smear Path Review PT INR Sodium Potassium Chloride Carbon Dioxide Anion Gap BUN Creatinine Estim Creat Clear Calc Estimated GFR POC Glucose 144 H Random Glucose Calcium Blood Type Antibody Screen Crossmatch Progress Note: A&P Assessment and plan (1) Decompensated heart failure: Status: Acute Assessment and Plan: Decompensated congestive heart failure in this elderly woman with significant underlying cardiovascular history. Clinically gradually improving although intake and output chart is difficult to determine. Continue gentle diuresis especially after blood transfusion. I will try to maintain hematocrit over 30. There was no overt active bleeding at this point time and would try to avoid correcting her INR with vitamin K and allowed INRs to drift downward gradually. Continue supportive care. Overall prognosis is guarded. Continue spironolactone therapy which is the only neurohormonal modulators she has been able to tolerate. Continue amiodarone for rate control. Will follow with you Time Spent With Patient Time: Total time managing care of this patient today ____ minutes. Progress Note: Quality Stroke Does the patient have a stroke diagnosis?: No Procedures Date of Service Date of Service: 10/11/24
--- NOTE | 2024-10-11 16:24 | MHC.CM.PN ---
PT EXPECTED TO BE READY TO DC IN ONE TO TWO DAYS DCP: [facility] TO TRANSPORT
[2024-10-11] MEDS: Docusate Sodium 100 MG CAPSULE PO (20:00)
[2024-10-11] MEDS: busPIRone HCl 5 MG TABLET PO (21:30)
[2024-10-11] MEDS: Acetaminophen 325 MG TABLET 975 MG PO (23:38)
[2024-10-12 02:02] LABS: Glucose, Whole Blood 129 mg/dL (60-115)
[2024-10-12 02:56] VITALS: BP 149/65; PULSE 90; RESP 19; O2SAT 90
[2024-10-12] MEDS: diphenhydrAMINE HCL 25 MG CAPSULE PO (03:28)
[2024-10-12 06:49] LABS: MANUAL DIFF FLAG NO
[2024-10-12 06:52] LABS: Basophils Absolute Auto 0.1 X10*3/uL (0.0-0.2); Basophils Percent Auto 1.1 % (0-2); Eosinophils Absolute Auto 0.1 X10*3/uL (0.0-0.4); Eosinophils Percent Auto 2.2 % (0-4); Hematocrit 29.6 % (37.0-47.0); Hemoglobin 9.8 g/dl (12.0-16.0); Imm Gran Abs Auto 0.04 X10*3/uL (0.00-0.03); Imm Gran Pct Auto 0.7 % (0.0-0.4); Lymphocytes Absolute Auto 0.6 X10*3/uL (1.2-4.9); Lymphocytes Percent Auto 10.5 % (20-40); Mean Corpuscular HGB Conc 33.1 g/dl (31.0-35.0); Mean Corpuscular Hemoglobin 31.1 pg (27.0-33.0); Mean Platelet Volume 8.9 fL (9.4-12.3); Monocytes Absolute Auto 0.6 X10*3/uL (0.1-1.2); Monocytes Percent Auto 11.2 % (2-11); Neutrophils Absolute Auto 4.1 x10*3/uL (2.0-8.3); Neutrophils Percent Auto 74.3 % (45-73); Platelet Count 205 X10*3/uL (160-400); Red Blood Count 3.15 X10*6/uL (4.20-5.50); White Blood Count 5.5 X10*3/uL (4.8-10.8)
[2024-10-12 07:11] LABS: Prothrombin Time 60.4 SEC (10.9-12.4)
[2024-10-12 07:25] LABS: Anion Gap 14 (12-20); Blood Urea Nitrogen 70 mg/dL (9-16); Calcium 8.4 mg/dL (8.4-10.2); Carbon Dioxide 24 mmol/L (22-29); Chloride 106 mmol/L (96-108); Creatinine Clr Calc Pharmacy 31.3; Estimated Glomerular Filt Rate 36; Glucose Random 112 mg/dL (60-115); INTERNATIONAL NORM RATIO 5.2 (0.9-1.1); Potassium 3.7 mmol/L (3.3-5.1); Sodium 140 mmol/L (135-145)
[2024-10-12 07:40] VITALS: BP 136/59; PULSE 89; RESP 20; TEMP 36.7; O2SAT 90
[2024-10-12] MEDS: Milk of Magnesia 30 ML ORAL.SUSP PO (08:03)
[2024-10-12] MEDS: Amiodarone HCL 200 MG TABLET PO (08:03)
[2024-10-12] MEDS: oxyCODONE HCl Immed Release 5 MG TABLET PO ×2 (08:03→14:20)
[2024-10-12] MEDS: Ferrous Sulfate 324 MG TABLET.DR PO (08:04)
[2024-10-12] MEDS: busPIRone HCl 5 MG TABLET PO (08:04)
[2024-10-12] MEDS: Spironolactone 25 MG TABLET 12.5 MG PO (08:04)
[2024-10-12] MEDS: Docusate Sodium 100 MG CAPSULE PO ×2 (08:04→21:14)
[2024-10-12] MEDS: Furosemide 20 MG/2 ML VIAL IVPUSH ×2 (08:04→16:32)
[2024-10-12] MEDS: Sennosides 8.6 MG TABLET PO (08:04)
[2024-10-12] MEDS: 0.9 % Sodium Chloride Flush 3 ML SYRINGE IVFLUSH ×3 (08:05→21:14)
[2024-10-12] MEDS: Gabapentin 300 MG CAPSULE PO ×3 (08:23→21:14)
[2024-10-12 08:36] LABS: Glucose, Whole Blood 137 mg/dL (60-115)
--- NOTE | 2024-10-12 11:06 | P.PNIM_ITS ---
Subjective Subjective Date of Service: 10/12/24 Interval History: Seen and examined this morning follow up for anemia awake, alert feeling well this morning. ambulating in room Review of Systems Review of Systems: Yes all other systems are reviewed and are negative Constitutional Constitutional: Denies chills and Denies fever(s) Cardiovascular Cardiovascular: Denies chest pain Physical Exam 2 Vital Signs: Vital Signs: Last Vital Signs Temp 98.1 F 10/12/24 07:40 Pulse 89 10/12/24 07:40 Resp 20 10/12/24 07:40 BP 136/59 L 10/12/24 07:40 Pulse Ox 90 L 10/12/24 07:40 O2 Del Method Room Air 10/12/24 07:40 O2 Flow Rate 2 10/10/24 08:59 BMI result Body Mass Index 21.9 Appearing in no acute distress lung sounds are clear to auscultation heart regular rate rhythm, clear S1, S2 positive bowel sounds, abdomen is soft, nontender neuro patient is alert x3, no focal deficits Objective Data Active Medications Acetaminophen (Acetaminophen 325 Mg Tablet) 975 mg PO Q6H PRN PRN Reason: Pain, Mild 1-3,fever,headache Albuterol Sulfate (Albuterol Sulfate 90 Mcg 8 Gm Inhaler) 2 puff INHALE Q4H PRN PRN Reason: Shortness Of Breath Or Wheezing Albuterol Sulfate (Albuterol Sulfate (0.083%) 2.5 Mg/3 Ml Vial.Neb) 2.5 mg INHALE Q2H PRN PRN Reason: Shortness Of Breath Or Wheezing Amiodarone HCl (Amiodarone Hcl 200 Mg Tablet) 200 mg PO DAILY [facility] Last Admin: 10/12/24 08:03 Dose: 200 mg Documented By: ROVERTO Buspirone HCl (Buspirone Hcl 5 Mg Tablet) 5 mg PO DAILY [facility] Last Admin: 10/12/24 08:04 Dose: 5 mg Documented By: ROVERTO Calcium Carbonate (Calcium Carbonate 750 Mg Tab.Chew) 750 mg PO Q4H PRN PRN Reason: Heartburn Cyclobenzaprine HCl (Cyclobenzaprine Hcl 5 Mg Tablet) 5 mg PO TID PRN PRN Reason: muscle spasms Dextrose (Dextrose 50 % 25 Gm/50 Ml Syringe) 25 gm IVPUSH Q15M PRN; Protocol PRN Reason: per Hypoglycemia Standing Ord. Docusate Sodium (Docusate Sodium 100 Mg Capsule) 100 mg PO BID [facility] Last Admin: 10/12/24 08:04 Dose: 100 mg Documented By: ROVERTO Ferrous Sulfate (Ferrous Sulfate 324 Mg Tablet.Dr) 324 mg PO DAILY [facility] Last Admin: 10/12/24 08:04 Dose: 324 mg Documented By: ROVERTO Fluticasone Propionate (Fluticasone Propionate 250 Mcg Blst.W.Dev) 1 puff INHALE RBID PRN PRN Reason: Shortness Of Breath Or Wheezing Furosemide (Furosemide 20 Mg/2 Ml Vial) 20 mg IVPUSH BID@0900,1800 [facility]; Protocol Last Admin: 10/12/24 08:04 Dose: 20 mg Documented By: ROVERTO Gabapentin (Gabapentin 300 Mg Capsule) 300 mg PO TID [facility] Last Admin: 10/12/24 08:23 Dose: 300 mg Documented By: ROVERTO Glucose (Glucose Gel 15 Gm Gel..Gram.) 15 gm PO Q15M PRN; Protocol PRN Reason: per Hypoglycemia Standing Ord. Insulin Human Lispro (Insulin Lispro 100 Unit/Ml 3 Ml Vial) 0 unit SUBCUT QIDACHS [facility]; Protocol Last Admin: 10/12/24 08:04 Dose: Not Given Documented By: ROVERTO Non-Admin Reason: poc= 137 Lidocaine (Lidocaine 4 % Patch Adh..Patch) 1 patch TRANSDERMA DAILY PRN PRN Reason: Pain Last Admin: 10/10/24 17:33 Dose: 1 patch Documented By: SYDNIE Magnesium Hydroxide (Milk Of Magnesia 30 Ml Oral.Susp) 30 ml PO DAILY PRN PRN Reason: Constipation Last Admin: 10/12/24 08:03 Dose: 30 ml Documented By: ROVERTO Melatonin (Melatonin 3 Mg Tablet) 6 mg PO BEDTIME PRN PRN Reason: Insomnia Oxycodone HCl (Oxycodone Hcl Immed Release 5 Mg Tablet) 5 mg PO Q6H PRN PRN Reason: severe pain Last Admin: 10/12/24 08:03 Dose: 5 mg Documented By: ROVERTO Senna (Sennosides 8.6 Mg Tablet) 8.6 mg PO DAILY [facility] Last Admin: 10/12/24 08:04 Dose: 8.6 mg Documented By: ROVERTO Sodium Chloride (0.9 % Sodium Chloride Flush 3 Ml Syringe) 3 ml IVFLUSH QSHIFT NARCISA Last Admin: 10/12/24 08:05 Dose: 3 ml Documented By: ROVERTO Spironolactone (Spironolactone 25 Mg Tablet) 12.5 mg PO DAILY [facility]; Protocol Last Admin: 10/12/24 08:04 Dose: 12.5 mg Documented By: ROVERTO Labs 10/12/24 06:27 10/12/24 06:27 Labs: Laboratory Results - last 24 hr 10/09/24 10/11/24 10/11/24 17:05 11:30 15:12 MCV MCH MCHC RDW Plt Count MPV Immature Gran % (Auto) Neut % (Auto) Lymph % (Auto) [place] % (Auto) Eos % (Auto) Baso % (Auto) Lymph # (Auto) [place] # (Auto) Eos # (Auto) Baso # (Auto) Abs Immat Gran (auto) Absolute Neuts (auto) Absolute Nucleated RBC Nucleated RBC % (auto) PT INR Anion Gap Estim Creat Clear Calc Estimated GFR POC Glucose 134 H 144 H Random Glucose Calcium Crossmatch See Detail 10/11/24 10/12/24 10/12/24 19:54 06:27 07:21 MCV 94.0 MCH 31.1 MCHC 33.1 RDW 18.0 H Plt Count 205 MPV 8.9 L Immature Gran % (Auto) 0.7 H Neut % (Auto) 74.3 H Lymph % (Auto) 10.5 L [place] % (Auto) 11.2 H Eos % (Auto) 2.2 Baso % (Auto) 1.1 Lymph # (Auto) 0.6 L [place] # (Auto) 0.6 Eos # (Auto) 0.1 Baso # (Auto) 0.1 Abs Immat Gran (auto) 0.04 H Absolute Neuts (auto) 4.1 Absolute Nucleated RBC 0.000 Nucleated RBC % (auto) 0.0 PT 60.4 H D INR 5.2 H* D Anion Gap 14 Estim Creat Clear Calc 31.3 Estimated GFR 36 POC Glucose 129 H 137 H Random Glucose 112 Calcium 8.4 Crossmatch Assessment and Plan (1) Decompensated heart failure: Status: Acute (2) Supratherapeutic INR: Status: Acute (3) Anemia: Status: Acute Plan 64-year-old female with a history of asthma, hyperlipidemia,diabetes, mitral stenosis s/p replacement with mechanical valve, systolic heart failure with EF of 25-30 % on echo 07/2023, and persistent AFib, who presented to the ED due to abdominal pain for an unknown period of time as well as back pain. In the ED she was found to be critically anemic and guaiac positive. She was transfused with 2 units PRBC. INR was supratherapeutic at 7.6. Initial hemoglobin was 6.5, repeat 8.7, vitamin K was deferred. Acute on chronic anemia no evidence of acute blood loss s/p 3U Prbc. H/H stable hold Coumadin for now Avoid vitamin K to avoid risk of thrombotic complications due to mechanical mitral valve Seen by GI- Due to complicated cardiac history, recommend conservative management, transfuse as needed to keep hematocrit above 30; if develops active bleeding, would need transfer to tertiary care facility Supratherapeutic INR INR now 5.2 As the patient has no signs of overt bleeding/life-threatening bleeding we will hold vitamin K due to presence of mechanical mitral valve to prevent complication of thrombosis hold Coumadin until INR closer to 2-3 follow INR Acute on chronic HFrEF History of severe LV systolic dysfunction secondary to nonischemic cardiomyopathy, severe aortic stenosis, severe tricuspid regurgitation, pulmonary hypertension She has done poorly with overall medical therapy and there has been concerned about pursuing percutaneous treatment of her aortic as well as tricuspid well pathology although felt that she was too high risk and was not able to be performed at [facility] was referred to [place] Bilateral pleural effusion/pulmonary edema Seen by cardiology-recommend continue Lasix IV 20 b.i.d. Continue Aldactone CKD3 scr up and down, around baseline follow closely Prolonged QTC Okay to continue amiodarone per Cardiology electrolytes normal avoid QT prolonging agents Mild persistent asthma, no acute exacerbation Continue baseline meds Type 2 diabetes Hold Januvia sliding scale insulin Persistent AFib EKG with AFib, rate controlled holding Coumadin due to supratherapeutic INR and GI bleed continue amiodarone Chronic back pain continue lidocaine patch gabapentin cyclobenzaprine continue oxycodone Full code VTE prophylaxis: Pneumoboots, resume Coumadin when appropriate overall guarded prognosis given complex cardiac history - called and discussed with daughter/pt HCP, she is aware of heart issues. discussed cardiology rec of palliative care, pt listed as full code; she will discuss with her dad and pt about overall goals. for now pt will remain full code on room air today Quality Stroke Does the patient have a stroke diagnosis?: No VTE Prior VTE?: No VTE Risk Level:: Medical - moderate - high VTE Device Contraindication: N/A - Device Ordered VTE Drug Contraindication: Treatment Not Indicated
--- NOTE | 2024-10-12 11:55 | P.PNCA_ITS ---
Subjective Subjective Date of Service: 10/12/24 Principal diagnosis: CHF, valvular heart disease. Interval history: Patient feeling a lot better. Fatigue has improved. Shortness of breath has improved. Hematocrit has improved. Unfortunately output chart has not been well maintained. Creatinine is improved. Hemodynamically stable. Review of Systems Constitutional: Reports fatigue Eyes: Reports no additional eye complaints Cardiovascular: Denies chest pain, Denies leg edema, Denies lightheadedness, Reports dyspnea on exertion and Denies orthopnea Respiratory: Reports no additional respiratory complaints and Reports dyspnea on exertion Gastrointestinal: Reports no additional gastrointestinal complaints Musculoskeletal: Reports no additional musculoskeletal complaints Reports system reviewed and no additional complaints, except as documented Endocrine: Reports no additional endocrine complaints and Reports fatigue Allergic/Immunologic: Reports no additional allergic/immunologic complaints Physical Exam Vital Signs: Last Vital Signs Temp 98.1 F 10/12/24 07:40 Pulse 89 10/12/24 07:40 Resp 20 10/12/24 07:40 BP 136/59 L 10/12/24 07:40 Pulse Ox 90 L 10/12/24 07:40 O2 Del Method Room Air 10/12/24 07:40 O2 Flow Rate 2 10/10/24 08:59 BMI result Body Mass Index 21.9 Const General: cooperative, alert, awake, ill appearing and other ( uncomfortable but not in distress) Nutritional Appearance: malnourished Orientation/consciousness: patient oriented x3 HEENT Head: Yes normocephalic and Yes atraumatic Neck Neck: Yes trachea midline, Yes supple and Yes no JVD (Pulsatile V-waves) Resp Effort & Inspection: decreased respiratory effort Auscultation: crackles ( at basis) and breath sounds absent ( at bases) Cardio Palpation: abnormal PMI displaced PMI Rhythm: abnormal rhythm irregularly irregular Heart sounds: S1 normal heart sound present, no click, no gallops and Murmur heart sound present systolic ( the 2 different murmurs, in the right and left parasternal there is a holosystolic murmur consistent with TR. There was also systolic murmur on the left 4th intercostal space suggestive of aortic stenosis) GI Inspection: Yes distended Auscultation: Hypoactive bowel sounds present Skin General skin exam: no rashes or lesions noted and ecchymosis Neuro General: patient oriented x3 and moves all extremities Extrem General: Yes no clubbing, cyanosis or edema Objective Labs and Meds 10/12/24 06:27 10/12/24 06:27 Lab results: Laboratory Results - last 24 hr 10/09/24 10/11/24 10/11/24 17:05 11:30 15:12 WBC RBC Hgb Hct MCV MCH MCHC RDW Plt Count MPV Immature Gran % (Auto) Neut % (Auto) Lymph % (Auto) [place] % (Auto) Eos % (Auto) Baso % (Auto) Lymph # (Auto) [place] # (Auto) Eos # (Auto) Baso # (Auto) Abs Immat Gran (auto) Absolute Neuts (auto) Absolute Nucleated RBC Nucleated RBC % (auto) PT INR Sodium Potassium Chloride Carbon Dioxide Anion Gap BUN Creatinine Estim Creat Clear Calc Estimated GFR POC Glucose 134 H 144 H Random Glucose Calcium Crossmatch See Detail 10/11/24 10/12/24 10/12/24 19:54 06:27 07:21 WBC 5.5 RBC 3.15 L Hgb 9.8 L Hct 29.6 L MCV 94.0 MCH 31.1 MCHC 33.1 RDW 18.0 H Plt Count 205 MPV 8.9 L Immature Gran % (Auto) 0.7 H Neut % (Auto) 74.3 H Lymph % (Auto) 10.5 L [place] % (Auto) 11.2 H Eos % (Auto) 2.2 Baso % (Auto) 1.1 Lymph # (Auto) 0.6 L [place] # (Auto) 0.6 Eos # (Auto) 0.1 Baso # (Auto) 0.1 Abs Immat Gran (auto) 0.04 H Absolute Neuts (auto) 4.1 Absolute Nucleated RBC 0.000 Nucleated RBC % (auto) 0.0 PT 60.4 H D INR 5.2 H* D Sodium 140 Potassium 3.7 Chloride 106 Carbon Dioxide 24 Anion Gap 14 BUN 70 H Creatinine 1.46 H Estim Creat Clear Calc 31.3 Estimated GFR 36 POC Glucose 129 H 137 H Random Glucose 112 Calcium 8.4 Crossmatch Progress Note: A&P Assessment and plan (1) Decompensated heart failure: Status: Acute Assessment and Plan: Decompensated congestive heart failure with significant underlying multivalvular disease with severe LV systolic dysfunction this elderly woman with multiple comorbidities. With transfusion and gentle diuresis her creatinine is improved. Continue IV diuresis for 1 more day although requires accurate output chart. Follow-up BNP and BNP. Out of bed to chair and ambulate as tolerated. Incentive spirometry. Continue maintain hematocrit. INR is gently drifting down. Would avoid vitamin K. there was no overt signs of GI bleeding. Continue maintain hematocrit over 30. Has not tolerated other heart failure medication in the past. Overall prognosis is poor. Continue current neurohormonal modulation with spironolactone. Will follow with you Time Spent With Patient Time: Total time managing care of this patient today ____ minutes. Progress Note: Quality Stroke Does the patient have a stroke diagnosis?: No Procedures Date of Service Date of Service: 10/12/24
[2024-10-12 12:00] VITALS: BP 136/63; PULSE 79; RESP 20; TEMP 36.8; O2SAT 94
[2024-10-12 12:20] LABS: Glucose, Whole Blood 107 mg/dL (60-115)
[2024-10-12 15:24] VITALS: BP 144/67; PULSE 84; RESP 17; TEMP 36.6; O2SAT 92
[2024-10-12 17:37] LABS: Glucose, Whole Blood 106 mg/dL (60-115)
[2024-10-12 19:57] VITALS: BP 143/68; PULSE 80; RESP 16; TEMP 37.2; O2SAT 95
[2024-10-12] MEDS: LORazepam 0.5 MG TABLET PO (21:14)
[2024-10-12 21:48] LABS: Glucose, Whole Blood 79 mg/dL (60-115)
[2024-10-12 23:46] VITALS: BP 139/63; PULSE 88; RESP 17; TEMP 37.1; O2SAT 98
[2024-10-13] MEDS: oxyCODONE HCl Immed Release 5 MG TABLET PO ×3 (00:05→17:40)
[2024-10-13 03:46] VITALS: BP 127/69; PULSE 80; RESP 17; TEMP 36.6; O2SAT 93
[2024-10-13 07:19] VITALS: BP 148/65; PULSE 80; RESP 20; TEMP 36.8; O2SAT 93
[2024-10-13 07:39] LABS: Glucose, Whole Blood 109 mg/dL (60-115)
[2024-10-13] MEDS: Gabapentin 300 MG CAPSULE PO ×3 (08:14→20:53)
[2024-10-13] MEDS: Ferrous Sulfate 324 MG TABLET.DR PO (08:14)
[2024-10-13] MEDS: Docusate Sodium 100 MG CAPSULE PO ×2 (08:14→20:53)
[2024-10-13] MEDS: Spironolactone 25 MG TABLET 12.5 MG PO (08:15)
[2024-10-13] MEDS: Sennosides 8.6 MG TABLET PO (08:15)
[2024-10-13] MEDS: Amiodarone HCL 200 MG TABLET PO (08:15)
[2024-10-13] MEDS: 0.9 % Sodium Chloride Flush 3 ML SYRINGE IVFLUSH ×3 (08:16→20:53)
[2024-10-13] MEDS: busPIRone HCl 5 MG TABLET PO (08:16)
[2024-10-13] MEDS: Furosemide 20 MG/2 ML VIAL IVPUSH ×2 (08:16→11:43)
[2024-10-13 08:18] LABS: Hematocrit 27.6 % (37.0-47.0); Hemoglobin 8.8 g/dl (12.0-16.0); Mean Corpuscular HGB Conc 31.9 g/dl (31.0-35.0); Mean Corpuscular Hemoglobin 30.8 pg (27.0-33.0); Mean Corpuscular Volume 96.5 fL (80.0-98.0); Mean Platelet Volume 8.9 fL (9.4-12.3); Platelet Count 149 X10*3/uL (160-400); Prothrombin Time 34.5 SEC (10.9-12.4); Red Blood Count 2.86 X10*6/uL (4.20-5.50); Red Cell Distribution Width 18.1 % (11.0-16.0); White Blood Count 4.1 X10*3/uL (4.8-10.8)
[2024-10-13 08:32] LABS: Anion Gap 12 (12-20); Blood Urea Nitrogen 62 mg/dL (9-16); Carbon Dioxide 27 mmol/L (22-29); Chloride 106 mmol/L (96-108); Creatinine Clr Calc Pharmacy 32.2; Estimated Glomerular Filt Rate 37; Glucose Random 96 mg/dL (60-115); Potassium 3.7 mmol/L (3.3-5.1); Sodium 141 mmol/L (135-145)
[2024-10-13 08:35] LABS: B Type Natriuretic Peptide 724 pg/mL (<100)
--- NOTE | 2024-10-13 09:50 | PM.PNCARD ---
Subjective Subjective Date of Service: 10/13/24 Principal diagnosis: CHF, valvular heart disease. Interval history: patient was says his shortness of breath is stable but she is developing some fluid in her lower extremity. She was also having some issues with wound on the heels. She denies any palpitations. No lightheadedness, syncope. Review of Systems Constitutional: Reports fatigue Eyes: Reports no additional eye complaints Cardiovascular: Denies chest pain, Reports leg edema, Denies lightheadedness, Denies Loss of Consciousness and Reports dyspnea on exertion Respiratory: Reports no additional respiratory complaints and Reports dyspnea on exertion Gastrointestinal: Reports no additional gastrointestinal complaints Endocrine: Reports fatigue Physical Exam Vital Signs: Last Vital Signs Temp 98.3 F 10/13/24 07:19 Pulse 80 10/13/24 07:19 Resp 20 10/13/24 07:19 BP 148/65 H 10/13/24 07:19 Pulse Ox 93 10/13/24 07:19 O2 Del Method Room Air 10/13/24 07:19 O2 Flow Rate 2 10/10/24 08:59 BMI result Body Mass Index 21.9 Const General: cooperative, alert, awake, ill appearing and other ( uncomfortable but not in distress) Nutritional Appearance: malnourished Orientation/consciousness: patient oriented x3 HEENT Head: Yes normocephalic and Yes atraumatic Neck Neck: Yes trachea midline, Yes supple and Yes JVD Resp Effort & Inspection: decreased respiratory effort Auscultation: crackles ( at basis) and breath sounds absent ( at bases) Cardio Jugular venous distension: JVD Palpation: abnormal PMI displaced PMI Rhythm: abnormal rhythm irregularly irregular Heart sounds: S1 normal heart sound present, no click, no gallops and Murmur heart sound present systolic ( the 2 different murmurs, in the right and left parasternal there is a holosystolic murmur consistent with TR. There was also systolic murmur on the left 4th intercostal space suggestive of aortic stenosis) GI Inspection: Yes distended Auscultation: Hypoactive bowel sounds present Skin General skin exam: no rashes or lesions noted and ecchymosis Neuro General: patient oriented x3 and moves all extremities Extrem General: Yes no clubbing, cyanosis or edema Objective Labs and Meds 10/13/24 07:40 10/13/24 07:40 Lab results: Laboratory Results - last 24 hr 10/12/24 10/12/24 10/12/24 11:28 16:16 20:53 WBC RBC Hgb Hct MCV MCH MCHC RDW Plt Count MPV Absolute Nucleated RBC Nucleated RBC % (auto) PT INR Sodium Potassium Chloride Carbon Dioxide Anion Gap BUN Creatinine Estim Creat Clear Calc Estimated GFR POC Glucose 107 106 79 Random Glucose Calcium B-Natriuretic Peptide 10/13/24 10/13/24 07:20 07:40 WBC 4.1 L RBC 2.86 L Hgb 8.8 L Hct 27.6 L MCV 96.5 MCH 30.8 MCHC 31.9 RDW 18.1 H Plt Count 149 L D MPV 8.9 L Absolute Nucleated RBC 0.000 Nucleated RBC % (auto) 0.0 PT 34.5 H D INR 3.0 H D Sodium 141 Potassium 3.7 Chloride 106 Carbon Dioxide 27 Anion Gap 12 BUN 62 H Creatinine 1.42 H Estim Creat Clear Calc 32.2 Estimated GFR 37 POC Glucose 109 Random Glucose 96 Calcium 8.0 L B-Natriuretic Peptide 724 H Progress Note: A&P Assessment and plan (1) Decompensated heart failure: Status: Acute Assessment and Plan: Decompensated congestive heart failure in this elderly woman with multiple cardiovascular morbidities and overall significant cardiac valvular heart disease which makes her management very difficult. Blood pressure is stable. I would increase her diuretics to 40 mg IV b.i.d. Lasix. Strict intake and output chart needs to be pursued. Continue monitor renal function which has been gradually improving. Her INR has trended down nicely. I would hold off on warfarin for 1 more day and then restart her on a lower dose on a chronic basis. Her hematocrit is also downtrending at this point time which is concerning. Continue to monitor hematocrit regularly. Transfuse as needed. Continue spironolactone therapy. She has not been able other neurohormonal modulators including Jardiance, metoprolol, lisinopril. Continue amiodarone for rate control. Overall prognosis remains guarded. Will follow with you Time Spent With Patient Time: Total time managing care of this patient today ____ minutes. Progress Note: Quality Stroke Does the patient have a stroke diagnosis?: No Procedures Date of Service Date of Service: 10/13/24
--- NOTE | 2024-10-13 09:57 | HO.PM.IMPN ---
Subjective Subjective Date of Service: 10/13/24 Interval History: Seen and examined this morning follow up for anemia awake, alert feeling well this morning. ambulating in room Review of Systems Review of Systems: Yes all other systems are reviewed and are negative Constitutional Constitutional: Denies chills and Denies fever(s) Cardiovascular Cardiovascular: Denies chest pain Physical Exam Vital Signs: Vital Signs: Last Vital Signs Temp 98.3 F 10/13/24 07:19 Pulse 80 10/13/24 07:19 Resp 20 10/13/24 07:19 BP 148/65 H 10/13/24 07:19 Pulse Ox 93 10/13/24 07:19 O2 Del Method Room Air 10/13/24 07:19 O2 Flow Rate 2 10/10/24 08:59 BMI result Body Mass Index 21.9 Appearing in no acute distress lung sounds are clear to auscultation heart regular rate rhythm, clear S1, S2 positive bowel sounds, abdomen is soft, nontender neuro patient is alert x3, no focal deficits Objective Data Active Medications Acetaminophen (Acetaminophen 325 Mg Tablet) 975 mg PO Q6H PRN PRN Reason: Pain, Mild 1-3,fever,headache Albuterol Sulfate (Albuterol Sulfate 90 Mcg 8 Gm Inhaler) 2 puff INHALE Q4H PRN PRN Reason: Shortness Of Breath Or Wheezing Albuterol Sulfate (Albuterol Sulfate (0.083%) 2.5 Mg/3 Ml Vial.Neb) 2.5 mg INHALE Q2H PRN PRN Reason: Shortness Of Breath Or Wheezing Amiodarone HCl (Amiodarone Hcl 200 Mg Tablet) 200 mg PO DAILY [facility] Last Admin: 10/13/24 08:15 Dose: 200 mg Documented By: RADHA Buspirone HCl (Buspirone Hcl 5 Mg Tablet) 5 mg PO DAILY [facility] Last Admin: 10/13/24 08:16 Dose: 5 mg Documented By: RADHA Calcium Carbonate (Calcium Carbonate 750 Mg Tab.Chew) 750 mg PO Q4H PRN PRN Reason: Heartburn Cyclobenzaprine HCl (Cyclobenzaprine Hcl 5 Mg Tablet) 5 mg PO TID PRN PRN Reason: muscle spasms Dextrose (Dextrose 50 % 25 Gm/50 Ml Syringe) 25 gm IVPUSH Q15M PRN; Protocol PRN Reason: per Hypoglycemia Standing Ord. Docusate Sodium (Docusate Sodium 100 Mg Capsule) 100 mg PO BID [facility] Last Admin: 10/13/24 08:14 Dose: 100 mg Documented By: RADHA Ferrous Sulfate (Ferrous Sulfate 324 Mg Tablet.Dr) 324 mg PO DAILY [facility] Last Admin: 10/13/24 08:14 Dose: 324 mg Documented By: RADHA Fluticasone Propionate (Fluticasone Propionate 250 Mcg Blst.W.Dev) 1 puff INHALE RBID PRN PRN Reason: Shortness Of Breath Or Wheezing Furosemide (Furosemide 20 Mg/2 Ml Vial) 40 mg IVPUSH BID@0900,1800 [facility]; Protocol Furosemide (Furosemide 20 Mg/2 Ml Vial) 20 mg IVPUSH ONCE ONE; Protocol Stop: 10/13/24 09:57 Gabapentin (Gabapentin 300 Mg Capsule) 300 mg PO TID [facility] Last Admin: 10/13/24 08:14 Dose: 300 mg Documented By: RADHA Glucose (Glucose Gel 15 Gm Gel..Gram.) 15 gm PO Q15M PRN; Protocol PRN Reason: per Hypoglycemia Standing Ord. Insulin Human Lispro (Insulin Lispro 100 Unit/Ml 3 Ml Vial) 0 unit SUBCUT QIDACHS [facility]; Protocol Last Admin: 10/13/24 07:44 Dose: Not Given Documented By: RADHA Non-Admin Reason: No Insulin Coverage Lidocaine (Lidocaine 4 % Patch Adh..Patch) 1 patch TRANSDERMA DAILY PRN PRN Reason: Pain Last Admin: 10/10/24 17:33 Dose: 1 patch Documented By: SYDNIE Lorazepam (Lorazepam 0.5 Mg Tablet) 0.5 mg PO Q8H PRN PRN Reason: Anxiety Last Admin: 10/12/24 21:14 Dose: 0.5 mg Documented By: MICHELLE Magnesium Hydroxide (Milk Of Magnesia 30 Ml Oral.Susp) 30 ml PO DAILY PRN PRN Reason: Constipation Last Admin: 10/12/24 08:03 Dose: 30 ml Documented By: ROVERTO Melatonin (Melatonin 3 Mg Tablet) 6 mg PO BEDTIME PRN PRN Reason: Insomnia Oxycodone HCl (Oxycodone Hcl Immed Release 5 Mg Tablet) 5 mg PO Q6H PRN PRN Reason: severe pain Last Admin: 10/13/24 08:15 Dose: 5 mg Documented By: RADHA Senna (Sennosides 8.6 Mg Tablet) 8.6 mg PO DAILY [facility] Last Admin: 10/13/24 08:15 Dose: 8.6 mg Documented By: RADHA Sodium Chloride (0.9 % Sodium Chloride Flush 3 Ml Syringe) 3 ml IVFLUSH QSHIFT [facility] Last Admin: 10/13/24 08:16 Dose: 3 ml Documented By: RADHA Spironolactone (Spironolactone 25 Mg Tablet) 12.5 mg PO DAILY [facility]; Protocol Last Admin: 10/13/24 08:15 Dose: 12.5 mg Documented By: RADHA Labs 10/13/24 07:40 10/13/24 07:40 Labs: Laboratory Results - last 24 hr 10/12/24 10/12/24 10/12/24 11:28 16:16 20:53 MCV MCH MCHC RDW Plt Count MPV Absolute Nucleated RBC Nucleated RBC % (auto) PT INR Anion Gap Estim Creat Clear Calc Estimated GFR POC Glucose 107 106 79 Random Glucose Calcium B-Natriuretic Peptide 10/13/24 10/13/24 07:20 07:40 MCV 96.5 MCH 30.8 MCHC 31.9 RDW 18.1 H Plt Count 149 L D MPV 8.9 L Absolute Nucleated RBC 0.000 Nucleated RBC % (auto) 0.0 PT 34.5 H D INR 3.0 H D Anion Gap 12 Estim Creat Clear Calc 32.2 Estimated GFR 37 POC Glucose 109 Random Glucose 96 Calcium 8.0 L B-Natriuretic Peptide 724 H Assessment and Plan (1) Decompensated heart failure: Status: Acute (2) Supratherapeutic INR: Status: Acute (3) Anemia: Status: Acute Plan 64-year-old female with a history of asthma, hyperlipidemia,diabetes, mitral stenosis s/p replacement with mechanical valve, systolic heart failure with EF of 25-30 % on echo 07/2023, and persistent AFib, who presented to the ED due to abdominal pain for an unknown period of time as well as back pain. In the ED she was found to be critically anemic and guaiac positive. She was transfused with 2 units PRBC. INR was supratherapeutic at 7.6. Initial hemoglobin was 6.5, repeat 8.7, vitamin K was deferred. Supratherapeutic INR. Resolved INR now 3.0, peaked at 9.0 As the patient has no signs of overt bleeding/life-threatening bleeding we will hold vitamin K due to presence of mechanical mitral valve to prevent complication of thrombosis resume Coumadin today follow INR Acute on chronic HFrEF History of severe LV systolic dysfunction secondary to nonischemic cardiomyopathy, severe aortic stenosis, severe tricuspid regurgitation, pulmonary hypertension She has done poorly with overall medical therapy and there has been concerned about pursuing percutaneous treatment of her aortic as well as tricuspid well pathology although felt that she was too high risk and was not able to be performed at [facility] was referred to [place] Bilateral pleural effusion/pulmonary edema Seen by cardiology-recommend increase to Lasix IV 40 b.i.d. Continue Aldactone Acute on chronic anemia no evidence of acute blood loss s/p 3U Prbc. H/H stable hold Coumadin for now Avoid vitamin K to avoid risk of thrombotic complications due to mechanical mitral valve Seen by GI- Due to complicated cardiac history, recommend conservative management, transfuse as needed to keep hematocrit above 30; if develops active bleeding, would need transfer to tertiary care facility CKD3 scr up and down, around baseline follow closely Prolonged QTC Okay to continue amiodarone per Cardiology electrolytes normal avoid QT prolonging agents Mild persistent asthma, no acute exacerbation Continue baseline meds Type 2 diabetes Hold Januvia sliding scale insulin Persistent AFib EKG with AFib, rate controlled holding Coumadin due to supratherapeutic INR and GI bleed continue amiodarone Chronic back pain continue lidocaine patch gabapentin cyclobenzaprine continue oxycodone Full code VTE prophylaxis: resume Coumadin Quality Stroke Does the patient have a stroke diagnosis?: No VTE Prior VTE?: No VTE Risk Level:: Medical - moderate - high VTE Device Contraindication: N/A - Device Ordered VTE Drug Contraindication: Treatment Not Indicated
[2024-10-13 11:15] VITALS: BP 127/70; PULSE 84; RESP 16; TEMP 36.6; O2SAT 96
[2024-10-13 11:38] LABS: Glucose, Whole Blood 157 mg/dL (60-115)
[2024-10-13] MEDS: Insulin Lispro 100 UNIT/ML 3 ML VIAL SUBCUT (11:44)
[2024-10-13 15:52] VITALS: BP 143/67; PULSE 80; RESP 14; TEMP 36.8; O2SAT 97
[2024-10-13] MEDS: Warfarin Sodium 1 MG TABLET PO (17:36)
[2024-10-13] MEDS: Furosemide 20 MG/2 ML VIAL 40 MG IVPUSH (17:39)
[2024-10-13] MEDS: Ammonium Lactate 12 % Lotion 226 GM BOTTLE 1 APPL TOPICAL (17:45)
[2024-10-13 19:52] VITALS: BP 146/63; PULSE 98; RESP 18; TEMP 36.9; O2SAT 94
[2024-10-13] MEDS: Calcium Carbonate 750 MG TAB.CHEW PO (20:53)
[2024-10-13 21:05] LABS: Glucose, Whole Blood 127 mg/dL (60-115)
[2024-10-13 21:05] LABS: Glucose, Whole Blood 142 mg/dL (60-115)
[2024-10-13 23:32] VITALS: BP 129/57; PULSE 81; RESP 16; TEMP 36.4; O2SAT 96
[2024-10-14 03:37] VITALS: BP 112/64; PULSE 78; RESP 16; TEMP 36.8; O2SAT 95
[2024-10-14] MEDS: Milk of Magnesia 30 ML ORAL.SUSP PO (04:06)
[2024-10-14 06:58] VITALS: BP 102/55; PULSE 79; RESP 18; TEMP 37.1; O2SAT 94
[2024-10-14 07:08] LABS: INTERNATIONAL NORM RATIO 2.2 (0.9-1.1); Prothrombin Time 25.3 SEC (10.9-12.4)
[2024-10-14 08:12] LABS: Glucose, Whole Blood 94 mg/dL (60-115)
[2024-10-14 08:38] VITALS: BP 120/60
[2024-10-14] MEDS: Docusate Sodium 100 MG CAPSULE PO ×2 (08:38→20:14)
[2024-10-14] MEDS: Amiodarone HCL 200 MG TABLET PO (08:39)
[2024-10-14] MEDS: Gabapentin 300 MG CAPSULE PO ×3 (08:39→20:14)
[2024-10-14] MEDS: Ferrous Sulfate 324 MG TABLET.DR PO (08:39)
[2024-10-14] MEDS: Spironolactone 25 MG TABLET 12.5 MG PO (08:39)
[2024-10-14] MEDS: Sennosides 8.6 MG TABLET PO (08:39)
[2024-10-14] MEDS: busPIRone HCl 5 MG TABLET PO (08:39)
[2024-10-14] MEDS: Furosemide 20 MG/2 ML VIAL 40 MG IVPUSH (08:39)
[2024-10-14] MEDS: Ammonium Lactate 12 % Lotion 226 GM BOTTLE 1 APPL TOPICAL (08:40)
[2024-10-14] MEDS: 0.9 % Sodium Chloride Flush 3 ML SYRINGE IVFLUSH ×3 (08:40→20:14)
--- NOTE | 2024-10-14 09:41 | P.PNCA_ITS ---
Subjective Subjective Date of Service: 10/14/24 Principal diagnosis: CHF, valvular heart disease. Interval history: She states that she is feeling better since the time of admission. No overt cardiac symptoms. Shortness of breath is mostly at baseline. Swelling is also improved. Review of Systems Review of Systems Yes all other systems are reviewed and are negative Constitutional: Reports as per HPI and Reports no additional constitutional complaints Eyes: Reports as per HPI and Denies no additional eye complaints Denies system reviewed and no additional complaints, except as documented and Reports as per HPI Cardiovascular: Reports as per HPI, Reports no additional cardiovascular complaints, Denies acrocyanosis, Denies cool extremities, Denies chest pain, Denies leg edema, Denies lightheadedness, Denies palpitations and Denies dyspnea Respiratory: Reports as per HPI, Denies no additional respiratory complaints and Denies dyspnea Gastrointestinal: Reports as per HPI and Denies no additional gastrointestinal complaints Genitourinary: Reports as per HPI Musculoskeletal: Reports no additional musculoskeletal complaints and Reports as per HPI Skin/Breast: Reports system reviewed and no additional complaints, except as docu Reports system reviewed and no additional complaints, except as documented and Reports as per HPI Psychiatric: Reports no additional psychiatric complaints and Reports as per HPI Endocrine: Reports no additional endocrine complaints, Reports as per HPI and Denies palpitations Hematologic/Lymphatic: Reports no additional hematologic/lymphatic complaints and Reports as per HPI Allergic/Immunologic: Reports no additional allergic/immunologic complaints and Reports as per HPI Physical Exam Vital Signs: Last Vital Signs Temp 98.7 F 10/14/24 06:58 Pulse 79 10/14/24 06:58 Resp 18 10/14/24 06:58 BP 120/60 10/14/24 08:38 Pulse Ox 94 10/14/24 06:58 O2 Del Method Room Air 10/14/24 06:58 O2 Flow Rate 2 10/10/24 08:59 BMI result Body Mass Index 21.9 Const General: comfortable and no acute distress Orientation/consciousness: patient oriented x3 HEENT Other: Unremarkable Head: Yes normal to inspection Neck Neck: Yes normal visual inspection Chest Chest palpation & inspection: normal inspection of the chest Resp Auscultation: clear to auscultation bilaterally Cardio Other: Prosthetic heart sounds present. Palpation: normal PMI Heart sounds: no gallops, Murmur heart sound present systolic III/ and no rubs GI Palpation (GI): Soft to palpation Back/Spine/Pelvis Other: unremarkable Skin General skin exam: no rashes or lesions noted Neuro General: patient oriented x3 Extrem Other: Trace to one+ edema. General: Yes normal to inspection Psych Mental Status: mental status grossly normal Objective Labs and Meds 10/13/24 07:40 10/13/24 07:40 Lab results: Laboratory Results - last 24 hr 10/13/24 10/13/24 10/13/24 11:19 16:08 20:39 PT INR POC Glucose 157 H 127 H 142 H 10/14/24 10/14/24 06:08 06:43 PT 25.3 H D INR 2.2 H POC Glucose 94 Progress Note: A&P Assessment and plan (1) Acute on chronic systolic (congestive) heart failure: Status: Acute (2) Persistent atrial fibrillation: Status: Acute (3) H/O mitral valve replacement with mechanical valve: Status: Acute (4) Non-rheumatic aortic stenosis: Status: Acute (5) Tricuspid valve insufficiency, non-rheumatic: Status: Acute Plan Very complicated patient, whom I have not seen in a while as she is admitted at [facility] and also gets followed up there. Based on echocardiogram from one year ago, LVEF was 25-30% with severe biatrial enlargement, severe aortic stenosis, normally functioning mechanical mitral valve and severe tricuspid regurgitation with pulmonary hypertension. It does not appear that she actually underwent any valvular intervention for the aortic stenosis or tricuspid valve mainly because of question of benefit as well as being high-risk. In the interim, she has had hospitalizations for congestive heart failure. She states that she is currently much improved since admission. Current diuretic regimen is Lasix 40 mg b.i.d.. Per [facility] notes, there is mention of allergy to both YUSRA inhibitors and ARB. Beta-blockers were held because of RV dysfunction and there is a prior history of intolerance. There is also an allergy to SGLT2 inhibitors. Also according to the notes she was on dialysis but till a few weeks back. Overall, very complicated patient with guarded prognosis. Can switch to oral diuretics and ambulate and see how she does. Discharge planning. Time Spent With Patient Time: Total time managing care of this patient today ____ minutes. Progress Note: Quality Stroke Does the patient have a stroke diagnosis?: No Procedures Date of Service Date of Service: 10/14/24
[2024-10-14 10:54] LABS: Glucose, Whole Blood 107 mg/dL (60-115)
[2024-10-14 11:09] VITALS: BP 131/63; PULSE 85; RESP 18; TEMP 36.8; O2SAT 97
--- NOTE | 2024-10-14 12:24 | HO.PM.IMPN ---
Subjective Subjective Date of Service: 10/14/24 Interval History: Seen and examined this morning follow up for anemia awake, alert feeling well this morning. ambulating in room Review of Systems Review of Systems: Yes all other systems are reviewed and are negative Constitutional Constitutional: Denies chills and Denies fever(s) Cardiovascular Cardiovascular: Denies chest pain Physical Exam Vital Signs: Vital Signs: Last Vital Signs Temp 98.2 F 10/14/24 11:09 Pulse 85 10/14/24 11:09 Resp 18 10/14/24 11:09 BP 131/63 10/14/24 11:09 Pulse Ox 97 10/14/24 11:09 O2 Del Method Room Air 10/14/24 11:09 O2 Flow Rate 2 10/10/24 08:59 BMI result Body Mass Index 21.9 Appearing in no acute distress lung sounds are clear to auscultation heart regular rate rhythm, clear S1, S2 positive bowel sounds, abdomen is soft, nontender neuro patient is alert x3, no focal deficits Objective Data Active Medications Acetaminophen (Acetaminophen 325 Mg Tablet) 975 mg PO Q6H PRN PRN Reason: Pain, Mild 1-3,fever,headache Albuterol Sulfate (Albuterol Sulfate 90 Mcg 8 Gm Inhaler) 2 puff INHALE Q4H PRN PRN Reason: Shortness Of Breath Or Wheezing Albuterol Sulfate (Albuterol Sulfate (0.083%) 2.5 Mg/3 Ml Vial.Neb) 2.5 mg INHALE Q2H PRN PRN Reason: Shortness Of Breath Or Wheezing Amiodarone HCl (Amiodarone Hcl 200 Mg Tablet) 200 mg PO DAILY [facility] Last Admin: 10/14/24 08:39 Dose: 200 mg Documented By: DOMINGO Buspirone HCl (Buspirone Hcl 5 Mg Tablet) 5 mg PO DAILY [facility] Last Admin: 10/14/24 08:39 Dose: 5 mg Documented By: DOMINGO Calcium Carbonate (Calcium Carbonate 750 Mg Tab.Chew) 750 mg PO Q4H PRN PRN Reason: Heartburn Last Admin: 10/13/24 20:53 Dose: 750 mg Documented By: MARIUSZ Cyclobenzaprine HCl (Cyclobenzaprine Hcl 5 Mg Tablet) 5 mg PO TID PRN PRN Reason: muscle spasms Dextrose (Dextrose 50 % 25 Gm/50 Ml Syringe) 25 gm IVPUSH Q15M PRN; Protocol PRN Reason: per Hypoglycemia Standing Ord. Docusate Sodium (Docusate Sodium 100 Mg Capsule) 100 mg PO BID [facility] Last Admin: 10/14/24 08:38 Dose: 100 mg Documented By: DOMINGO Ferrous Sulfate (Ferrous Sulfate 324 Mg Tablet.Dr) 324 mg PO DAILY [facility] Last Admin: 10/14/24 08:39 Dose: 324 mg Documented By: DOMINGO Fluticasone Propionate (Fluticasone Propionate 250 Mcg Blst.W.Dev) 1 puff INHALE RBID PRN PRN Reason: Shortness Of Breath Or Wheezing Furosemide (Furosemide 20 Mg/2 Ml Vial) 40 mg IVPUSH BID@0900,1800 [facility]; Protocol Last Admin: 10/14/24 08:39 Dose: 40 mg Documented By: DOMINGO Gabapentin (Gabapentin 300 Mg Capsule) 300 mg PO TID [facility] Last Admin: 10/14/24 08:39 Dose: 300 mg Documented By: DOMINGO Glucose (Glucose Gel 15 Gm Gel..Gram.) 15 gm PO Q15M PRN; Protocol PRN Reason: per Hypoglycemia Standing Ord. Insulin Human Lispro (Insulin Lispro 100 Unit/Ml 3 Ml Vial) 0 unit SUBCUT QIDACHS [facility]; Protocol Last Admin: 10/14/24 11:00 Dose: Not Given Documented By: DOMINGO Non-Admin Reason: No Insulin Coverage Lactic Acid (Ammonium Lactate 12 % Lotion 226 Gm Bottle) 1 appl TOPICAL DAILY [facility]; Protocol Last Admin: 10/14/24 08:40 Dose: 1 appl Documented By: DOMINGO Lidocaine (Lidocaine 4 % Patch Adh..Patch) 1 patch TRANSDERMA DAILY PRN PRN Reason: Pain Last Admin: 10/10/24 17:33 Dose: 1 patch Documented By: SYDNIE Lorazepam (Lorazepam 0.5 Mg Tablet) 0.5 mg PO Q8H PRN PRN Reason: Anxiety Last Admin: 10/12/24 21:14 Dose: 0.5 mg Documented By: MICHELLE Magnesium Hydroxide (Milk Of Magnesia 30 Ml Oral.Susp) 30 ml PO DAILY PRN PRN Reason: Constipation Last Admin: 10/14/24 04:06 Dose: 30 ml Documented By: HO.LIZMAR Melatonin (Melatonin 3 Mg Tablet) 6 mg PO BEDTIME PRN PRN Reason: Insomnia Oxycodone HCl (Oxycodone Hcl Immed Release 5 Mg Tablet) 5 mg PO Q6H PRN PRN Reason: severe pain Last Admin: 10/13/24 17:40 Dose: 5 mg Documented By: RADHA Senna (Sennosides 8.6 Mg Tablet) 8.6 mg PO DAILY [facility] Last Admin: 10/14/24 08:39 Dose: 8.6 mg Documented By: DOMINGO Sodium Chloride (0.9 % Sodium Chloride Flush 3 Ml Syringe) 3 ml IVFLUSH QSHIFT [facility] Last Admin: 10/14/24 08:40 Dose: 3 ml Documented By: DOMINGO Spironolactone (Spironolactone 25 Mg Tablet) 12.5 mg PO DAILY [facility]; Protocol Last Admin: 10/14/24 08:39 Dose: 12.5 mg Documented By: DOMINGO Warfarin Sodium (Warfarin Sodium 1 Mg Tablet) 1 mg PO DAILY@1800 [facility] Last Admin: 10/13/24 17:36 Dose: 1 mg Documented By: RADHA Labs 10/13/24 07:40 10/13/24 07:40 Labs: Laboratory Results - last 24 hr 10/13/24 10/13/24 10/14/24 16:08 20:39 06:08 PT 25.3 H D INR 2.2 H POC Glucose 127 H 142 H 10/14/24 10/14/24 06:43 10:44 PT INR POC Glucose 94 107 Assessment and Plan (1) Decompensated heart failure: Status: Acute (2) Supratherapeutic INR: Status: Acute (3) Anemia: Status: Acute Plan 64-year-old female with a history of asthma, hyperlipidemia,diabetes, mitral stenosis s/p replacement with mechanical valve, systolic heart failure with EF of 25-30 % on echo 07/2023, and persistent AFib, who presented to the ED due to abdominal pain for an unknown period of time as well as back pain. In the ED she was found to be critically anemic and guaiac positive. She was transfused with 2 units PRBC. INR was supratherapeutic at 7.6. Initial hemoglobin was 6.5, repeat 8.7, vitamin K was deferred. Supratherapeutic INR. Resolved INR now 2.2, peaked at 9.0, coumadin restarted 10/13/24 As the patient has no signs of overt bleeding/life-threatening bleeding we will hold vitamin K due to presence of mechanical mitral valve to prevent complication of thrombosis Coumadin increased to 5 mg daily follow INR Acute on chronic HFrEF History of severe LV systolic dysfunction secondary to nonischemic cardiomyopathy, severe aortic stenosis, severe tricuspid regurgitation, pulmonary hypertension She has done poorly with overall medical therapy and there has been concerned about pursuing percutaneous treatment of her aortic as well as tricuspid well pathology although felt that she was too high risk and was not able to be performed at [facility] was referred to [place] Bilateral pleural effusion/pulmonary edema Seen by cardiology-recommend change Lasix to po Continue Aldactone Acute on chronic anemia no evidence of acute blood loss s/p 3U Prbc. H/H stable hold Coumadin for now Avoid vitamin K to avoid risk of thrombotic complications due to mechanical mitral valve Seen by GI- Due to complicated cardiac history, recommend conservative management, transfuse as needed to keep hematocrit above 30; if develops active bleeding, would need transfer to tertiary care facility CKD3 scr up and down, around baseline follow closely Prolonged QTC Okay to continue amiodarone per Cardiology electrolytes normal avoid QT prolonging agents Mild persistent asthma, no acute exacerbation Continue baseline meds Type 2 diabetes Hold Januvia sliding scale insulin Persistent AFib EKG with AFib, rate controlled holding Coumadin due to supratherapeutic INR and GI bleed continue amiodarone Chronic back pain continue lidocaine patch gabapentin cyclobenzaprine continue oxycodone Full code VTE prophylaxis:Coumadin Quality Stroke Does the patient have a stroke diagnosis?: No VTE Prior VTE?: No VTE Risk Level:: Medical - moderate - high VTE Device Contraindication: N/A - Device Ordered VTE Drug Contraindication: Treatment Not Indicated
--- NOTE | 2024-10-14 12:49 | MHC.CM.PN ---
Per EMR review, pt is not ready to DC, she requires ongoing treatment for Anemia and is followed by Cardiology. She is active with [facility], update sent to them. CM to follow for DC needs.
[2024-10-14 15:49] VITALS: BP 137/76; PULSE 83; RESP 20; TEMP 36.6; O2SAT 100
[2024-10-14] MEDS: Furosemide 20 MG TABLET PO (16:09)
[2024-10-14] MEDS: Warfarin Sodium 5 MG TABLET PO (16:10)
[2024-10-14] MEDS: Insulin Lispro 100 UNIT/ML 3 ML VIAL SUBCUT (16:10)
[2024-10-14 18:01] LABS: Glucose, Whole Blood 160 mg/dL (60-115)
[2024-10-14 20:00] VITALS: BP 146/56; PULSE 75; RESP 16; TEMP 36.2; O2SAT 97
[2024-10-14] MEDS: oxyCODONE HCl Immed Release 5 MG TABLET PO (21:03)
[2024-10-14 21:22] LABS: Glucose, Whole Blood 143 mg/dL (60-115)
[2024-10-15] VITALS (7 sets, daily range): BP systolic 104–142; BP diastolic 55–79; PULSE 77–99; RESP 16–20; TEMP 36.5–37.1; O2SAT 93–97
[2024-10-15] MEDS: LORazepam 0.5 MG TABLET PO (00:48)
[2024-10-15 06:15] LABS: INTERNATIONAL NORM RATIO 2.7 (0.9-1.1); Prothrombin Time 31.1 SEC (10.9-12.4)
--- NOTE | 2024-10-15 07:00 | CA_ITS ---
Transthoracic Echocardiogram Patient (Last, First, Middle): Ruby Anthony A Gender: Female Date of : 1960 Age: 64 Procedure Date: 10/15/2024 Procedure Type: Transthoracic Echocardiogram [place] [facility] [place] Height: 160.02 cm Weight: 55.79 kg BSA: 1.57 m2 Heart Rate: bpm BP: 113 / 71 mmHg Licensed Insurance Sales Agent: JOE Referring MD: Phoenix Silverman MD Symptoms: CHF Study Quality: Adequate ECG Rhythm: Atrial Fibrillation Conclusions: - The left ventricular systolic function is severely decreased. The visually estimated ejection fraction is between 20-25%. - Severely increased right ventricular cavity size. - Severe biatrial enlargement. - Probable paradoxical, low-flow, low gradient severe aortic stenosis. - A mechanical prosthetic mitral valve is present. The prosthetic mitral valve appears to be functioning normally. - There is severe tricuspid valve regurgitation. - Severe pulmonary hypertension is present. Findings Procedure Information Contrast agent, definity, is being given per protocol without apparent complications. Left Ventricle Normal left ventricular cavity size. There is mildly increased left ventricular wall thickness. The left ventricular systolic function is severely decreased. The visually estimated ejection fraction is between 20 25%. There is severe global hypokinesis. Diastolic function is indeterminate on the basis of available data. Right Ventricle Severely increased right ventricular cavity size. There is mildly decreased right ventricular systolic function. Atria Severe biatrial enlargement. Aortic Valve There is severe calcification of the aortic valve. The peak aortic velocity is 3.28 m/s with a calculated peak gradient of 43 mmHg. The mean gradient is 25 mmHg. The aortic valve area is 0.74 cm2. There is no aortic valve regurgitation. Dimensionless index 0.29. Stroke volume index 37 mL/m2. Overall, probable paradoxical, low-flow, low gradient severe aortic stenosis. Mitral Valve A mechanical prosthetic mitral valve is present. The prosthetic mitral valve appears to be functioning normally. There is no mitral valve regurgitation. Pulmonic Valve The pulmonic valve is likely normal. Tricuspid Valve There is severe tricuspid valve regurgitation. The right ventricular systolic pressure is 64 mmHg. Severe pulmonary hypertension is present. Great Vessels The asc aorta is normal in size. Venous The inferior vena cava is normal in size and collapses less than 50% with inspiration. Pericardium/Pleural There is no evidence of pericardial effusion. Prior Study Comparison No significant change compared to prior study dated: 07/24/2023. Measurements 2D Linear Measurements IVSd: 0.98 0.6-0.9/0.6-1.0 cm LVIDd: 5.19 3.9-5.3/4.2-5.9 cm LVIDd Index: 3.31 2.4-3.2/2.2-3.1 cm/m2 LVIDs: 4.24 2.0-3.6 cm LVPWd: 1.07 0.7-1.1 cm LA Diam: 4.90 2.7-3.8/3.0-4.0 cm LAIDs Index: 3.12 1.5-2.3 cm/m2 LV Mass: 249.46 67-162/88-224 g LV Mass Index: 158.89 43-95/49-115 g/m2 LVOT Diam: 1.90 3.0+(-)1.3 cm Mitral Valve MV VTI: 0.34 MV Pk Tito: 2.05 MV Mn Tito: 1.04 MV Pk Grad: 17.00 MV Mn Grad: 6.00 MV Pk E: 1.76 MV Decel Time: 183.00 E'Lateral: 6.75 E'Medial: 4.55 E/E' Med: 38.70 E/E' Lat: 26.10 PHT: 54.00 MVA PHT: 4.07 MVA Continuity: 1.71 Decel Bond: 9.72 Aortic Valve AoV Pk Tito: 3.28 AoV Mn Tito: 2.31 AoV VTI: 0.79 AoV Pk Grad: 43.00 Aov Mn Grad: 25.00 RON Cont.VTI: 0.74 AI Pk Tito: 3.25 AI Bond: 3.68 LVOT LVOT Pk Tito: 0.95 LVOT Mn Tito: 0.63 LVOT VTI: 0.21 LVOT Pk Grad: 4.00 LVOT Mn Grad: 2.00 LVOT Diam: 1.90 LVOT Area: 2.84 Diastolic Function MV Pk E: 1.76 E'Medial: 4.55 E/E' Med: 38.70 E' Laterial: 6.75 E/E' Lat: 26.10 Right Ventricle TAPSE (mm): 17.00 TVS' Tito: 8.00 Tricuspid Valve TR Pk Tito: 3.51 TR Pk Grad: 49.00 RA Press: 15.00 RVSP: 64.00 Great Vessels Aorta Ao Asc: 3.20 2.1-3.4 cm Updated in Other Vendor System with Status of Final Phoenix Silverman MD electronically signed on 10/15/2024 4:46:52 PM with status of Final
[2024-10-15] MEDS: Spironolactone 25 MG TABLET 12.5 MG PO (07:25)
[2024-10-15] MEDS: Gabapentin 300 MG CAPSULE PO ×3 (07:25→20:54)
[2024-10-15] MEDS: Sennosides 8.6 MG TABLET PO (07:26)
[2024-10-15] MEDS: Furosemide 20 MG TABLET PO ×2 (07:26→17:28)
[2024-10-15] MEDS: Amiodarone HCL 200 MG TABLET PO (07:27)
[2024-10-15] MEDS: busPIRone HCl 5 MG TABLET PO (07:27)
[2024-10-15] MEDS: oxyCODONE HCl Immed Release 5 MG TABLET PO ×2 (07:27→14:49)
[2024-10-15] MEDS: Docusate Sodium 100 MG CAPSULE PO ×2 (07:28→20:54)
[2024-10-15] MEDS: Ferrous Sulfate 324 MG TABLET.DR PO (07:28)
[2024-10-15] MEDS: 0.9 % Sodium Chloride Flush 3 ML SYRINGE IVFLUSH ×3 (07:29→20:56)
[2024-10-15] MEDS: Ammonium Lactate 12 % Lotion 226 GM BOTTLE 1 APPL TOPICAL (07:29)
[2024-10-15] MEDS: Milk of Magnesia 30 ML ORAL.SUSP PO (07:34)
[2024-10-15 07:57] LABS: Glucose, Whole Blood 116 mg/dL (60-115)
[2024-10-15 08:52] LABS: B Type Natriuretic Peptide 547 pg/mL (<100)
--- NOTE | 2024-10-15 09:45 | P.PNCA_ITS ---
Subjective Subjective Date of Service: 10/15/24 Principal diagnosis: CHF, valvular heart disease. Interval history: Today, her breathing is okay and at baseline. Leg this slightly more swollen than before. Her main concern however is rather constipation. Review of Systems Review of Systems Yes all other systems are reviewed and are negative Constitutional: Reports as per HPI and Reports no additional constitutional complaints Eyes: Reports as per HPI and Denies no additional eye complaints Denies system reviewed and no additional complaints, except as documented and Reports as per HPI Cardiovascular: Reports as per HPI, Reports no additional cardiovascular complaints, Denies acrocyanosis, Denies cool extremities, Denies chest pain, Reports leg edema, Denies lightheadedness, Denies palpitations and Reports dyspnea Respiratory: Reports as per HPI, Denies no additional respiratory complaints and Reports dyspnea Gastrointestinal: Reports as per HPI and Denies no additional gastrointestinal complaints Genitourinary: Reports as per HPI Musculoskeletal: Reports no additional musculoskeletal complaints and Reports as per HPI Skin/Breast: Reports system reviewed and no additional complaints, except as docu Reports system reviewed and no additional complaints, except as documented and Reports as per HPI Psychiatric: Reports no additional psychiatric complaints and Reports as per HPI Endocrine: Reports no additional endocrine complaints, Reports as per HPI and Denies palpitations Hematologic/Lymphatic: Reports no additional hematologic/lymphatic complaints and Reports as per HPI Allergic/Immunologic: Reports no additional allergic/immunologic complaints and Reports as per HPI Physical Exam Vital Signs: Last Vital Signs Temp 98.0 F 10/15/24 07:10 Pulse 78 10/15/24 07:10 Resp 18 10/15/24 07:10 BP 130/63 10/15/24 07:10 Pulse Ox 96 10/15/24 07:10 O2 Del Method Room Air 10/15/24 07:10 O2 Flow Rate 2 10/10/24 08:59 BMI result Body Mass Index 21.9 Const General: comfortable and no acute distress Orientation/consciousness: patient oriented x3 HEENT Other: Unremarkable Head: Yes normal to inspection Neck Neck: Yes normal visual inspection Chest Chest palpation & inspection: normal inspection of the chest Resp Auscultation: clear to auscultation bilaterally Cardio Other: Prosthetic heart sounds present. Palpation: normal PMI Heart sounds: no gallops, Murmur heart sound present systolic III/ and no rubs GI Palpation (GI): Soft to palpation Back/Spine/Pelvis Other: unremarkable Skin General skin exam: no rashes or lesions noted Neuro General: patient oriented x3 Extrem Other: Trace to one+ edema. General: Yes normal to inspection Psych Mental Status: mental status grossly normal Objective Labs and Meds 10/13/24 07:40 10/13/24 07:40 Lab results: Laboratory Results - last 24 hr 10/14/24 10/14/24 10/14/24 10:44 15:47 20:27 PT INR POC Glucose 107 160 H 143 H B-Natriuretic Peptide 10/15/24 10/15/24 10/15/24 05:41 06:49 07:57 PT 31.1 H D INR 2.7 H POC Glucose 116 H B-Natriuretic Peptide 547 H Imaging Radiologist's impression: Impressions KUB X-Ray 10/14/24 12:35 IMPRESSION: 1. Mild diffuse soft tissue haziness diffusely likely related to anasarca. This limits sensitivity. 2. Layering right pleural effusion. 3. No bowel obstruction or dilated loops of bowel. Retained stool in the left colon and rectum. 4. Hepatomegaly. Electronically signed by: Arun New MD 10/14/2024 01:03 PM EDT RP Progress Note: A&P Assessment and plan (1) Acute on chronic systolic (congestive) heart failure: Status: Acute (2) Persistent atrial fibrillation: Status: Acute (3) H/O mitral valve replacement with mechanical valve: Status: Acute (4) Non-rheumatic aortic stenosis: Status: Acute (5) Tricuspid valve insufficiency, non-rheumatic: Status: Acute Plan Severe cardiomyopathy, severe aortic stenosis, severe tricuspid regurgitation, pulmonary hypertension, normally functioning mechanical mitral valve. Current hospitalization is again for exacerbation of congestive heart failure. She was switched over to p.o. diuretics but she feels that she is getting leg swelling again and hence can give her another dose of IV diuretic. Per [facility] notes, there is mention of allergy to both YUSRA inhibitors and ARB. Beta-blockers were held because of RV dysfunction and there is a prior history of intolerance. There is also an allergy to SGLT2 inhibitors. Also according to the notes she was on dialysis but till a few weeks back. Apparently, she has been assess for valvular interventions for aortic valve as well as tricuspid valve but felt that she is a poor candidate for both and hence not pursued. Also patient not able to go to [place] for any evaluation. Overall, very complicated patient with not much options. Diuresed for symptom relief Manage constipation as that seems to be her main issue now. Ambulate as much able. Time Spent With Patient Time: Total time managing care of this patient today ____ minutes. Progress Note: Quality Stroke Does the patient have a stroke diagnosis?: No Procedures Date of Service Date of Service: 10/15/24
--- NOTE | 2024-10-15 10:16 | HO.PM.IMPN ---
Subjective Subjective Date of Service: 10/15/24 Interval History: Seen and examined this morning follow up for anemia awake, alert feeling well this morning. ambulating in room Review of Systems Review of Systems: Yes all other systems are reviewed and are negative Constitutional Constitutional: Denies chills and Denies fever(s) Cardiovascular Cardiovascular: Denies chest pain Physical Exam Vital Signs: Vital Signs: Last Vital Signs Temp 98.0 F 10/15/24 07:10 Pulse 78 10/15/24 07:10 Resp 18 10/15/24 07:10 BP 130/63 10/15/24 07:10 Pulse Ox 96 10/15/24 07:10 O2 Del Method Room Air 10/15/24 07:10 O2 Flow Rate 2 10/10/24 08:59 BMI result Body Mass Index 21.9 Appearing in no acute distress lung sounds are clear to auscultation heart regular rate rhythm, clear S1, S2 positive bowel sounds, abdomen is soft, nontender neuro patient is alert x3, no focal deficits Objective Data Active Medications Acetaminophen (Acetaminophen 325 Mg Tablet) 975 mg PO Q6H PRN PRN Reason: Pain, Mild 1-3,fever,headache Albuterol Sulfate (Albuterol Sulfate 90 Mcg 8 Gm Inhaler) 2 puff INHALE Q4H PRN PRN Reason: Shortness Of Breath Or Wheezing Albuterol Sulfate (Albuterol Sulfate (0.083%) 2.5 Mg/3 Ml Vial.Neb) 2.5 mg INHALE Q2H PRN PRN Reason: Shortness Of Breath Or Wheezing Amiodarone HCl (Amiodarone Hcl 200 Mg Tablet) 200 mg PO DAILY [facility] Last Admin: 10/15/24 07:27 Dose: 200 mg Documented By: ENRIQUE Buspirone HCl (Buspirone Hcl 5 Mg Tablet) 5 mg PO DAILY [facility] Last Admin: 10/15/24 07:27 Dose: 5 mg Documented By: ENRIQUE Calcium Carbonate (Calcium Carbonate 750 Mg Tab.Chew) 750 mg PO Q4H PRN PRN Reason: Heartburn Last Admin: 10/13/24 20:53 Dose: 750 mg Documented By: MARIUSZ Cyclobenzaprine HCl (Cyclobenzaprine Hcl 5 Mg Tablet) 5 mg PO TID PRN PRN Reason: muscle spasms Dextrose (Dextrose 50 % 25 Gm/50 Ml Syringe) 25 gm IVPUSH Q15M PRN; Protocol PRN Reason: per Hypoglycemia Standing Ord. Docusate Sodium (Docusate Sodium 100 Mg Capsule) 100 mg PO BID [facility] Last Admin: 10/15/24 07:28 Dose: 100 mg Documented By: ENRIQUE Ferrous Sulfate (Ferrous Sulfate 324 Mg Tablet.Dr) 324 mg PO DAILY [facility] Last Admin: 10/15/24 07:28 Dose: 324 mg Documented By: ENRIQUE Fluticasone Propionate (Fluticasone Propionate 250 Mcg Blst.W.Dev) 1 puff INHALE RBID PRN PRN Reason: Shortness Of Breath Or Wheezing Furosemide (Furosemide 20 Mg Tablet) 20 mg PO BID@0900,1800 [facility]; Protocol Last Admin: 10/15/24 07:26 Dose: 20 mg Documented By: ENRIQUE Gabapentin (Gabapentin 300 Mg Capsule) 300 mg PO TID [facility] Last Admin: 10/15/24 07:25 Dose: 300 mg Documented By: ENRIQUE Glucose (Glucose Gel 15 Gm Gel..Gram.) 15 gm PO Q15M PRN; Protocol PRN Reason: per Hypoglycemia Standing Ord. Insulin Human Lispro (Insulin Lispro 100 Unit/Ml 3 Ml Vial) 0 unit SUBCUT QIDACHS [facility]; Protocol Last Admin: 10/15/24 07:29 Dose: Not Given Documented By: ENRIQUE Non-Admin Reason: No Insulin Coverage Lactic Acid (Ammonium Lactate 12 % Lotion 226 Gm Bottle) 1 appl TOPICAL DAILY [facility]; Protocol Last Admin: 10/15/24 07:29 Dose: 1 appl Documented By: ENRQIUE Lidocaine (Lidocaine 4 % Patch Adh..Patch) 1 patch TRANSDERMA DAILY PRN PRN Reason: Pain Last Admin: 10/10/24 17:33 Dose: 1 patch Documented By: SYDNEI Lorazepam (Lorazepam 0.5 Mg Tablet) 0.5 mg PO Q8H PRN PRN Reason: Anxiety Last Admin: 10/15/24 00:48 Dose: 0.5 mg Documented By: ERNIE Magnesium Hydroxide (Milk Of Magnesia 30 Ml Oral.Susp) 30 ml PO DAILY PRN PRN Reason: Constipation Last Admin: 10/15/24 07:34 Dose: 30 ml Documented By: ENRIQUE Melatonin (Melatonin 3 Mg Tablet) 6 mg PO BEDTIME PRN PRN Reason: Insomnia Oxycodone HCl (Oxycodone Hcl Immed Release 5 Mg Tablet) 5 mg PO Q6H PRN PRN Reason: severe pain Last Admin: 10/15/24 07:27 Dose: 5 mg Documented By: ENRIQUE Senna (Sennosides 8.6 Mg Tablet) 8.6 mg PO DAILY [facility] Last Admin: 10/15/24 07:26 Dose: 8.6 mg Documented By: ENRIQUE Sodium Biphosphate/Sodium Phosphate (Sodium Phosphate,[place]-Dibasic 133 Ml Enema) 133 ml CO ONCE PRN PRN Reason: Constipation Sodium Chloride (0.9 % Sodium Chloride Flush 3 Ml Syringe) 3 ml IVFLUSH QSHIFT [facility] Last Admin: 10/15/24 07:29 Dose: 3 ml Documented By: ENRIQUE Spironolactone (Spironolactone 25 Mg Tablet) 12.5 mg PO DAILY [facility]; Protocol Last Admin: 10/15/24 07:25 Dose: 12.5 mg Documented By: ENRIQUE Warfarin Sodium (Warfarin Sodium 3 Mg Tablet) 3 mg PO DAILY@1800 [facility] Labs 10/13/24 07:40 10/13/24 07:40 Labs: Laboratory Results - last 24 hr 10/14/24 10/14/24 10/14/24 10:44 15:47 20:27 PT INR POC Glucose 107 160 H 143 H B-Natriuretic Peptide 10/15/24 10/15/24 10/15/24 05:41 06:49 07:57 PT 31.1 H D INR 2.7 H POC Glucose 116 H B-Natriuretic Peptide 547 H Assessment and Plan (1) Decompensated heart failure: Status: Acute (2) Supratherapeutic INR: Status: Acute (3) Anemia: Status: Acute Plan 64-year-old female with a history of asthma, hyperlipidemia,diabetes, mitral stenosis s/p replacement with mechanical valve, systolic heart failure with EF of 25-30 % on echo 07/2023, and persistent AFib, who presented to the ED due to abdominal pain for an unknown period of time as well as back pain. In the ED she was found to be critically anemic and guaiac positive. She was transfused with 2 units PRBC. INR was supratherapeutic at 7.6. Initial hemoglobin was 6.5, repeat 8.7, vitamin K was deferred. Abdominal pain Secondary to constipation on KUB Senna, Colace and fleets enema Supratherapeutic INR. Resolved INR now 2.7, peaked at 9.0, coumadin restarted 10/13/24 As the patient has no signs of overt bleeding/life-threatening bleeding we will hold vitamin K due to presence of mechanical mitral valve to prevent complication of thrombosis Coumadin increased to 5 mg daily, decrease to 3 mg daily follow INR Acute on chronic HFrEF History of severe LV systolic dysfunction secondary to nonischemic cardiomyopathy, severe aortic stenosis, severe tricuspid regurgitation, pulmonary hypertension She has done poorly with overall medical therapy and there has been concerned about pursuing percutaneous treatment of her aortic as well as tricuspid well pathology although felt that she was too high risk and was not able to be performed at [facility] was referred to [place] Bilateral pleural effusion/pulmonary edema Seen by cardiology-recommend change Lasix to po, can give one more IV dose this morning Continue Aldactone Acute on chronic anemia no evidence of acute blood loss s/p 3U Prbc. H/H stable hold Coumadin for now Avoid vitamin K to avoid risk of thrombotic complications due to mechanical mitral valve Seen by GI- Due to complicated cardiac history, recommend conservative management, transfuse as needed to keep hematocrit above 30; if develops active bleeding, would need transfer to tertiary care facility CKD3 scr up and down, around baseline follow closely Prolonged QTC Okay to continue amiodarone per Cardiology electrolytes normal avoid QT prolonging agents Mild persistent asthma, no acute exacerbation Continue baseline meds Type 2 diabetes Hold Januvia sliding scale insulin Persistent AFib EKG with AFib, rate controlled holding Coumadin due to supratherapeutic INR and GI bleed continue amiodarone Chronic back pain continue lidocaine patch gabapentin cyclobenzaprine continue oxycodone Full code VTE prophylaxis:Coumadin Quality Stroke Does the patient have a stroke diagnosis?: No VTE Prior VTE?: No VTE Risk Level:: Medical - moderate - high VTE Device Contraindication: N/A - Device Ordered VTE Drug Contraindication: Treatment Not Indicated
[2024-10-15 11:06] LABS: Glucose, Whole Blood 139 mg/dL (60-115)
[2024-10-15] MEDS: Furosemide 20 MG/2 ML VIAL IVPUSH (11:12)
[2024-10-15 16:28] LABS: Glucose, Whole Blood 152 mg/dL (60-115)
[2024-10-15] MEDS: Warfarin Sodium 3 MG TABLET PO (17:28)
[2024-10-15] MEDS: Insulin Lispro 100 UNIT/ML 3 ML VIAL SUBCUT (17:28)
[2024-10-15 21:15] LABS: Glucose, Whole Blood 147 mg/dL (60-115)
[2024-10-15] MEDS: Sodium Phosphate,Mono-Dibasic 133 ML ENEMA PR (22:23)
[2024-10-16] VITALS (7 sets, daily range): BP systolic 96–163; BP diastolic 56–79; PULSE 70–92; RESP 16–20; TEMP 36.3–37.1; O2SAT 92–97
[2024-10-16 07:04] LABS: Glucose, Whole Blood 110 mg/dL (60-115)
[2024-10-16 07:09] LABS: INTERNATIONAL NORM RATIO 4.6 (0.9-1.1); Prothrombin Time 53.6 SEC (10.9-12.4)
[2024-10-16] MEDS: Ferrous Sulfate 324 MG TABLET.DR PO (07:40)
[2024-10-16] MEDS: busPIRone HCl 5 MG TABLET PO (07:40)
[2024-10-16] MEDS: Furosemide 20 MG TABLET PO (07:40)
[2024-10-16] MEDS: Sennosides 8.6 MG TABLET PO (07:40)
[2024-10-16] MEDS: Docusate Sodium 100 MG CAPSULE PO ×2 (07:40→20:38)
[2024-10-16] MEDS: oxyCODONE HCl Immed Release 5 MG TABLET PO ×2 (07:41→15:54)
[2024-10-16] MEDS: Spironolactone 25 MG TABLET 12.5 MG PO (07:41)
[2024-10-16] MEDS: Gabapentin 300 MG CAPSULE PO ×3 (07:42→20:38)
[2024-10-16] MEDS: 0.9 % Sodium Chloride Flush 3 ML SYRINGE IVFLUSH ×3 (07:43→20:39)
[2024-10-16] MEDS: Amiodarone HCL 200 MG TABLET PO (07:43)
[2024-10-16] MEDS: Ammonium Lactate 12 % Lotion 226 GM BOTTLE 1 APPL TOPICAL (07:43)
[2024-10-16] MEDS: Magnesium Citrate 300 ML SOLUTION PO (10:41)
[2024-10-16 10:43] LABS: Glucose, Whole Blood 156 mg/dL (60-115)
--- NOTE | 2024-10-16 11:40 | P.PNCA_ITS ---
Subjective Subjective Date of Service: 10/16/24 Principal diagnosis: CHF, valvular heart disease. Interval history: Patient is still dealing with constipation. From the cardiac standpoint she is just about her baseline but she thinks her leg swelling is not completely better. She would like to go back on the IV diuretics while she is in the hospital as she states when she is sedentary the leg swell up but when she is active they do get better. Review of Systems Review of Systems Yes all other systems are reviewed and are negative Constitutional: Reports as per HPI and Reports no additional constitutional complaints Eyes: Reports as per HPI and Denies no additional eye complaints Denies system reviewed and no additional complaints, except as documented and Reports as per HPI Cardiovascular: Reports as per HPI, Reports no additional cardiovascular complaints, Denies acrocyanosis, Denies cool extremities, Denies chest pain, Reports leg edema, Denies lightheadedness, Denies palpitations and Reports dyspnea Respiratory: Reports as per HPI, Denies no additional respiratory complaints and Reports dyspnea Gastrointestinal: Reports as per HPI and Denies no additional gastrointestinal complaints Musculoskeletal: Reports no additional musculoskeletal complaints and Reports as per HPI Skin/Breast: Reports system reviewed and no additional complaints, except as docu Reports system reviewed and no additional complaints, except as documented and Reports as per HPI Psychiatric: Reports no additional psychiatric complaints and Reports as per HPI Endocrine: Reports no additional endocrine complaints, Reports as per HPI and Denies palpitations Hematologic/Lymphatic: Reports no additional hematologic/lymphatic complaints and Reports as per HPI Allergic/Immunologic: Reports no additional allergic/immunologic complaints and Reports as per HPI Physical Exam Vital Signs: Last Vital Signs Temp 97.6 F 10/16/24 11:12 Pulse 86 10/16/24 11:12 Resp 20 10/16/24 11:12 BP 129/79 10/16/24 11:12 Pulse Ox 96 10/16/24 11:12 O2 Del Method Room Air 10/16/24 11:12 O2 Flow Rate 2 10/10/24 08:59 BMI result Body Mass Index 21.9 Const General: comfortable and no acute distress Orientation/consciousness: patient oriented x3 HEENT Other: Unremarkable Head: Yes normal to inspection Neck Neck: Yes normal visual inspection Chest Chest palpation & inspection: normal inspection of the chest Resp Auscultation: clear to auscultation bilaterally Cardio Other: Prosthetic heart sounds present. Palpation: normal PMI Heart sounds: no gallops, Murmur heart sound present systolic III/ and no rubs GI Palpation (GI): Soft to palpation Back/Spine/Pelvis Other: unremarkable Skin General skin exam: no rashes or lesions noted Neuro General: patient oriented x3 Extrem Other: Trace to one+ edema. General: Yes normal to inspection Psych Mental Status: mental status grossly normal Objective Labs and Meds 10/13/24 07:40 10/13/24 07:40 Lab results: Laboratory Results - last 24 hr 10/15/24 10/15/24 10/16/24 16:21 21:01 06:38 Hold Purple Top SEE NOTE PT 53.6 H D INR 4.6 H POC Glucose 152 H 147 H 10/16/24 10/16/24 06:58 10:39 Hold Purple Top PT INR POC Glucose 110 156 H Progress Note: A&P Assessment and plan (1) Acute on chronic systolic (congestive) heart failure: Status: Acute (2) Persistent atrial fibrillation: Status: Acute (3) H/O mitral valve replacement with mechanical valve: Status: Acute (4) Non-rheumatic aortic stenosis: Status: Acute (5) Tricuspid valve insufficiency, non-rheumatic: Status: Acute Plan Severe cardiomyopathy, severe aortic stenosis, severe tricuspid regurgitation, pulmonary hypertension, normally functioning mechanical mitral valve. Current hospitalization is again for exacerbation of congestive heart failure. She was switched over to p.o. diuretics but she feels that she is getting leg swelling again and hence she would like to stay on IV diuretics while she is in the hospital. That is acceptable. Per [facility] notes, there is mention of allergy to both YUSRA inhibitors and ARB. Beta-blockers were held because of RV dysfunction and there is a prior history of intolerance. There is also an allergy to SGLT2 inhibitors. Also according to the notes she was on dialysis but till a few weeks back. Apparently, she has been assess for valvular interventions for aortic valve as well as tricuspid valve but felt that she is a poor candidate for both and hence not pursued. Also patient not able to go to [place] for any evaluation. Overall, very complicated patient with not much options. Continue diuretics intravenously per patient request. Otherwise, guarded prognosis with many comorbidities and limited options. Manage constipation as that might also precipitate worsening heart failure if she strains too much. Discussed with Nakia Bashir. Time Spent With Patient Time: Total time managing care of this patient today ____ minutes. Progress Note: Quality Stroke Does the patient have a stroke diagnosis?: No Procedures Date of Service Date of Service: 10/16/24
--- NOTE | 2024-10-16 12:40 | P.PNIM_ITS ---
Subjective Subjective Date of Service: 10/16/24 Interval History: Seen and examined this morning follow up for anemia awake, alert feeling well this morning. ambulating in room Review of Systems Review of Systems: Yes all other systems are reviewed and are negative Constitutional Constitutional: Denies chills and Denies fever(s) Cardiovascular Cardiovascular: Denies chest pain Physical Exam 2 Vital Signs: Vital Signs: Last Vital Signs Temp 97.6 F 10/16/24 11:12 Pulse 86 10/16/24 11:12 Resp 20 10/16/24 11:12 BP 129/79 10/16/24 11:12 Pulse Ox 96 10/16/24 11:12 O2 Del Method Room Air 10/16/24 11:12 O2 Flow Rate 2 10/10/24 08:59 BMI result Body Mass Index 21.9 Appearing in no acute distress lung sounds are clear to auscultation heart regular rate rhythm, clear S1, S2 positive bowel sounds, abdomen is soft, nontender neuro patient is alert x3, no focal deficits Objective Data Active Medications Acetaminophen (Acetaminophen 325 Mg Tablet) 975 mg PO Q6H PRN PRN Reason: Pain, Mild 1-3,fever,headache Albuterol Sulfate (Albuterol Sulfate 90 Mcg 8 Gm Inhaler) 2 puff INHALE Q4H PRN PRN Reason: Shortness Of Breath Or Wheezing Albuterol Sulfate (Albuterol Sulfate (0.083%) 2.5 Mg/3 Ml Vial.Neb) 2.5 mg INHALE Q2H PRN PRN Reason: Shortness Of Breath Or Wheezing Amiodarone HCl (Amiodarone Hcl 200 Mg Tablet) 200 mg PO DAILY [facility] Last Admin: 10/16/24 07:43 Dose: 200 mg Documented By: ENRIQUE Buspirone HCl (Buspirone Hcl 5 Mg Tablet) 5 mg PO DAILY [facility] Last Admin: 10/16/24 07:40 Dose: 5 mg Documented By: ENRIQUE Calcium Carbonate (Calcium Carbonate 750 Mg Tab.Chew) 750 mg PO Q4H PRN PRN Reason: Heartburn Last Admin: 10/13/24 20:53 Dose: 750 mg Documented By: MARIUSZ Cyclobenzaprine HCl (Cyclobenzaprine Hcl 5 Mg Tablet) 5 mg PO TID PRN PRN Reason: muscle spasms Dextrose (Dextrose 50 % 25 Gm/50 Ml Syringe) 25 gm IVPUSH Q15M PRN; Protocol PRN Reason: per Hypoglycemia Standing Ord. Docusate Sodium (Docusate Sodium 100 Mg Capsule) 100 mg PO BID [facility] Last Admin: 10/16/24 07:40 Dose: 100 mg Documented By: ENRIQUE Ferrous Sulfate (Ferrous Sulfate 324 Mg Tablet.Dr) 324 mg PO DAILY [facility] Last Admin: 10/16/24 07:40 Dose: 324 mg Documented By: ENRIQUE Fluticasone Propionate (Fluticasone Propionate 250 Mcg Blst.W.Dev) 1 puff INHALE RBID PRN PRN Reason: Shortness Of Breath Or Wheezing Furosemide (Furosemide 20 Mg Tablet) 20 mg PO BID@0900,1800 [facility]; Protocol Last Admin: 10/16/24 07:40 Dose: 20 mg Documented By: ENRIQUE Gabapentin (Gabapentin 300 Mg Capsule) 300 mg PO TID [facility] Last Admin: 10/16/24 07:42 Dose: 300 mg Documented By: ENRIQUE Glucose (Glucose Gel 15 Gm Gel..Gram.) 15 gm PO Q15M PRN; Protocol PRN Reason: per Hypoglycemia Standing Ord. Insulin Human Lispro (Insulin Lispro 100 Unit/Ml 3 Ml Vial) 0 unit SUBCUT QIDACHS [facility]; Protocol Last Admin: 10/16/24 11:48 Dose: Not Given Documented By: ENRIQUE Non-Admin Reason: Patient Refused Lactic Acid (Ammonium Lactate 12 % Lotion 226 Gm Bottle) 1 appl TOPICAL DAILY [facility]; Protocol Last Admin: 10/16/24 07:43 Dose: 1 appl Documented By: ENRIQUE Lidocaine (Lidocaine 4 % Patch Adh..Patch) 1 patch TRANSDERMA DAILY PRN PRN Reason: Pain Last Admin: 10/10/24 17:33 Dose: 1 patch Documented By: SYDNIE Lorazepam (Lorazepam 0.5 Mg Tablet) 0.5 mg PO Q8H PRN PRN Reason: Anxiety Last Admin: 10/15/24 00:48 Dose: 0.5 mg Documented By: ERNIE Magnesium Citrate (Magnesium Citrate 300 Ml Solution) 300 ml PO DAILY PRN PRN Reason: Constipation Last Admin: 10/16/24 10:41 Dose: 300 ml Documented By: ENRIQUE Magnesium Hydroxide (Milk Of Magnesia 30 Ml Oral.Susp) 30 ml PO DAILY PRN PRN Reason: Constipation Last Admin: 10/15/24 07:34 Dose: 30 ml Documented By: ENRIQUE Melatonin (Melatonin 3 Mg Tablet) 6 mg PO BEDTIME PRN PRN Reason: Insomnia Oxycodone HCl (Oxycodone Hcl Immed Release 5 Mg Tablet) 5 mg PO Q6H PRN PRN Reason: Pain, Severe (Pain Scale 7-10) Last Admin: 10/16/24 07:41 Dose: 5 mg Documented By: ENRIQUE Senna (Sennosides 8.6 Mg Tablet) 8.6 mg PO DAILY [facility] Last Admin: 10/16/24 07:40 Dose: 8.6 mg Documented By: ENRIQUE Sodium Biphosphate/Sodium Phosphate (Sodium Phosphate,[place]-Dibasic 133 Ml Enema) 133 ml CA ONCE PRN PRN Reason: Constipation Last Admin: 10/15/24 22:23 Dose: 133 ml Documented By: ERNIE Sodium Chloride (0.9 % Sodium Chloride Flush 3 Ml Syringe) 3 ml IVFLUSH QSHIFT [facility] Last Admin: 10/16/24 07:43 Dose: 3 ml Documented By: ENRIQUE Spironolactone (Spironolactone 25 Mg Tablet) 12.5 mg PO DAILY [facility]; Protocol Last Admin: 10/16/24 07:41 Dose: 12.5 mg Documented By: ENRIQUE Warfarin Sodium (Warfarin Sodium 1.25 Mg Halftab) 1.25 mg PO DAILY@1800 [facility] Labs 10/13/24 07:40 10/13/24 07:40 Labs: Laboratory Results - last 24 hr 10/15/24 10/15/24 10/16/24 16:21 21:01 06:38 Hold Purple Top SEE NOTE PT 53.6 H D INR 4.6 H POC Glucose 152 H 147 H 10/16/24 10/16/24 06:58 10:39 Hold Purple Top PT INR POC Glucose 110 156 H Assessment and Plan (1) Decompensated heart failure: Status: Acute (2) Supratherapeutic INR: Status: Acute (3) Anemia: Status: Acute Plan 64-year-old female with a history of asthma, hyperlipidemia,diabetes, mitral stenosis s/p replacement with mechanical valve, systolic heart failure with EF of 25-30 % on echo 07/2023, and persistent AFib, who presented to the ED due to abdominal pain for an unknown period of time as well as back pain. In the ED she was found to be critically anemic and guaiac positive. She was transfused with 2 units PRBC. INR was supratherapeutic at 7.6. Initial hemoglobin was 6.5, repeat 8.7, vitamin K was deferred. Abdominal pain> Resolving Secondary to constipation on KUB Senna, Colace and fleets enema mag citrate added +small BM Supratherapeutic INR. back up again INR now 4.6, peaked at 9.0, coumadin restarted 10/13/24, stop for today stop 3 mg and restart at lower dose when INR therapeutic follow INR Acute on chronic HFrEF History of severe LV systolic dysfunction secondary to nonischemic cardiomyopathy, severe aortic stenosis, severe tricuspid regurgitation, pulmonary hypertension She has done poorly with overall medical therapy and there has been concerned about pursuing percutaneous treatment of her aortic as well as tricuspid well pathology although felt that she was too high risk and was not able to be performed at [facility] was referred to [place] Bilateral pleural effusion/pulmonary edema cardiology following-continue lasix IV 20 mg BID (pt request) Continue Aldactone Acute on chronic anemia no evidence of acute blood loss s/p 3U Prbc. H/H stable hold Coumadin for now Avoid vitamin K to avoid risk of thrombotic complications due to mechanical mitral valve Seen by GI- Due to complicated cardiac history, recommend conservative management, transfuse as needed to keep hematocrit above 30; if develops active bleeding, would need transfer to tertiary care facility CKD3 scr up and down, around baseline follow closely Prolonged QTC Okay to continue amiodarone per Cardiology electrolytes normal avoid QT prolonging agents Mild persistent asthma, no acute exacerbation Continue baseline meds Type 2 diabetes Hold Januvia sliding scale insulin Persistent AFib EKG with AFib, rate controlled holding Coumadin due to supratherapeutic INR continue amiodarone Chronic back pain continue lidocaine patch gabapentin cyclobenzaprine continue oxycodone Full code VTE prophylaxis:Coumadin on hold Quality Stroke Does the patient have a stroke diagnosis?: No VTE Prior VTE?: No VTE Risk Level:: Medical - moderate - high VTE Device Contraindication: N/A - Device Ordered VTE Drug Contraindication: Treatment Not Indicated
--- NOTE | 2024-10-16 12:53 | MHC.CM.PN ---
EMR reviewed and per MD rounds, pt is not medically cleared for discharge due to management of abdominal pain, awaiting BM.
[2024-10-16 16:37] LABS: Glucose, Whole Blood 148 mg/dL (60-115)
[2024-10-16] MEDS: Furosemide 20 MG/2 ML VIAL IVPUSH (17:25)
[2024-10-16] MEDS: LORazepam 0.5 MG TABLET PO (20:38)
[2024-10-16 21:12] LABS: Glucose, Whole Blood 137 mg/dL (60-115)
[2024-10-17 03:50] VITALS: BP 100/63; PULSE 78; RESP 16; TEMP 36.6; O2SAT 95
[2024-10-17] MEDS: oxyCODONE HCl Immed Release 5 MG TABLET PO ×2 (04:07→17:10)
[2024-10-17 07:10] LABS: Glucose, Whole Blood 130 mg/dL (60-115)
[2024-10-17 07:12] VITALS: BP 134/78; PULSE 85; RESP 20; TEMP 36.5; O2SAT 95
[2024-10-17 07:43] LABS: Prothrombin Time 65.2 SEC (10.9-12.4)
[2024-10-17 07:52] LABS: INTERNATIONAL NORM RATIO 5.6 (0.9-1.1)
[2024-10-17] MEDS: busPIRone HCl 5 MG TABLET PO (09:44)
[2024-10-17] MEDS: Sennosides 8.6 MG TABLET PO (09:44)
[2024-10-17] MEDS: Spironolactone 25 MG TABLET 12.5 MG PO (09:44)
[2024-10-17] MEDS: Furosemide 20 MG/2 ML VIAL IVPUSH (09:44)
[2024-10-17] MEDS: Gabapentin 300 MG CAPSULE PO ×3 (09:44→20:29)
[2024-10-17] MEDS: Ferrous Sulfate 324 MG TABLET.DR PO (09:44)
[2024-10-17] MEDS: Docusate Sodium 100 MG CAPSULE PO ×2 (09:46→20:29)
[2024-10-17] MEDS: Amiodarone HCL 200 MG TABLET PO (09:47)
[2024-10-17] MEDS: 0.9 % Sodium Chloride Flush 3 ML SYRINGE IVFLUSH (09:48)
[2024-10-17] MEDS: Ammonium Lactate 12 % Lotion 226 GM BOTTLE 1 APPL TOPICAL (09:48)
--- NOTE | 2024-10-17 10:24 | P.PNCA_ITS ---
Subjective Subjective Date of Service: 10/17/24 Principal diagnosis: CHF, valvular heart disease. Interval history: Breathing is better than before. Constipation is also improve. Otherwise, frail as before. Review of Systems Review of Systems Yes all other systems are reviewed and are negative Constitutional: Reports as per HPI and Reports no additional constitutional complaints Eyes: Reports as per HPI and Denies no additional eye complaints Denies system reviewed and no additional complaints, except as documented and Reports as per HPI Cardiovascular: Reports as per HPI, Reports no additional cardiovascular complaints, Denies acrocyanosis, Denies cool extremities, Denies chest pain, Reports leg edema, Denies lightheadedness, Denies palpitations and Reports dyspnea Respiratory: Reports as per HPI, Denies no additional respiratory complaints and Reports dyspnea Gastrointestinal: Reports as per HPI and Denies no additional gastrointestinal complaints Musculoskeletal: Reports no additional musculoskeletal complaints and Reports as per HPI Skin/Breast: Reports system reviewed and no additional complaints, except as docu Reports system reviewed and no additional complaints, except as documented and Reports as per HPI Psychiatric: Reports no additional psychiatric complaints and Reports as per HPI Endocrine: Reports no additional endocrine complaints, Reports as per HPI and Denies palpitations Hematologic/Lymphatic: Reports no additional hematologic/lymphatic complaints and Reports as per HPI Allergic/Immunologic: Reports no additional allergic/immunologic complaints and Reports as per HPI Physical Exam Vital Signs: Last Vital Signs Temp 97.7 F 10/17/24 07:12 Pulse 85 10/17/24 07:12 Resp 20 10/17/24 07:12 BP 134/78 10/17/24 07:12 Pulse Ox 95 10/17/24 07:12 O2 Del Method Room Air 10/17/24 07:12 O2 Flow Rate 2 10/10/24 08:59 BMI result Body Mass Index 21.9 Const General: comfortable and no acute distress Orientation/consciousness: patient oriented x3 HEENT Other: Unremarkable Head: Yes normal to inspection Neck Neck: Yes normal visual inspection Chest Chest palpation & inspection: normal inspection of the chest Resp Auscultation: clear to auscultation bilaterally Cardio Other: Prosthetic heart sounds present. Palpation: normal PMI Heart sounds: no gallops, Murmur heart sound present systolic III/ and no rubs GI Palpation (GI): Soft to palpation Back/Spine/Pelvis Other: unremarkable Skin General skin exam: no rashes or lesions noted Neuro General: patient oriented x3 Extrem Other: Trace to one+ edema. General: Yes normal to inspection Psych Mental Status: mental status grossly normal Objective Labs and Meds 10/13/24 07:40 10/13/24 07:40 Lab results: Laboratory Results - last 24 hr 10/16/24 10/16/24 10/16/24 10:39 16:33 21:06 Hold Purple Top PT INR POC Glucose 156 H 148 H 137 H 10/17/24 10/17/24 06:46 07:03 Hold Purple Top SEE NOTE PT 65.2 H D INR 5.6 H* POC Glucose 130 H Progress Note: A&P Assessment and plan (1) Acute on chronic systolic (congestive) heart failure: Status: Acute (2) Persistent atrial fibrillation: Status: Acute (3) H/O mitral valve replacement with mechanical valve: Status: Acute (4) Non-rheumatic aortic stenosis: Status: Acute (5) Tricuspid valve insufficiency, non-rheumatic: Status: Acute Plan Severe cardiomyopathy, severe aortic stenosis, severe tricuspid regurgitation, pulmonary hypertension, normally functioning mechanical mitral valve. Current hospitalization is again for exacerbation of congestive heart failure. Can go back to her oral regimen for diuretics. Per [facility] notes, there is mention of allergy to both YUSRA inhibitors and ARB. Beta-blockers were held because of RV dysfunction and there is a prior history of intolerance. There is also an allergy to SGLT2 inhibitors. Also according to the notes she was on dialysis but till a few weeks back. Apparently, she has been assess for valvular interventions for aortic valve as well as tricuspid valve but felt that she is a poor candidate for both and hence not pursued. Also patient not able to go to [place] for any evaluation. Overall, very complicated patient with not much options. Otherwise, guarded prognosis with many comorbidities and limited options. Manage constipation as that might also precipitate worsening heart failure if she strains too much. Discharge planning. Discussed with Leslye Hassan. Time Spent With Patient Time: Total time managing care of this patient today ____ minutes. Progress Note: Quality Stroke Does the patient have a stroke diagnosis?: No Procedures Date of Service Date of Service: 10/17/24
[2024-10-17 10:53] LABS: Glucose, Whole Blood 125 mg/dL (60-115)
[2024-10-17 11:07] VITALS: BP 125/71; PULSE 85; RESP 18; TEMP 36.6; O2SAT 95
[2024-10-17] MEDS: ondansetron HCL 4 MG/2 ML VIAL IVPUSH (11:39)
[2024-10-17 13:41] LABS: Hematocrit 26.3 % (37.0-47.0); Hemoglobin 8.2 g/dl (12.0-16.0); Mean Corpuscular HGB Conc 31.2 g/dl (31.0-35.0); Mean Corpuscular Hemoglobin 31.1 pg (27.0-33.0); Mean Corpuscular Volume 99.6 fL (80.0-98.0); Mean Platelet Volume 9.3 fL (9.4-12.3); Platelet Count 174 X10*3/uL (160-400); Red Blood Count 2.64 X10*6/uL (4.20-5.50); White Blood Count 6.3 X10*3/uL (4.8-10.8)
[2024-10-17 13:55] LABS: Anion Gap 13 (12-20); Blood Urea Nitrogen 73 mg/dL (9-16); Calcium 8.5 mg/dL (8.4-10.2); Carbon Dioxide 28 mmol/L (22-29); Chloride 101 mmol/L (96-108); Creatinine Clr Calc Pharmacy 28.9; Estimated Glomerular Filt Rate 33; Glucose Random 147 mg/dL (60-115); Potassium 5.2 mmol/L (3.3-5.1); Sodium 137 mmol/L (135-145)
[2024-10-17 15:33] VITALS: BP 116/66; PULSE 82; RESP 14; TEMP 37.6; O2SAT 94
[2024-10-17 16:21] LABS: Glucose, Whole Blood 129 mg/dL (60-115)
--- NOTE | 2024-10-17 16:41 | P.PNIM_ITS ---
Subjective Subjective Date of Service: 10/17/24 Interval History: seen and examined this morning Follow-up for anemia, CHF not feeling great today reporting generalized achiness, no sob INR elevated but no active bleeding noted Review of Systems Review of Systems: Yes all other systems are reviewed and are negative Constitutional Constitutional: Denies chills and Denies fever(s) Cardiovascular Cardiovascular: Denies chest pain, Denies palpitations and Denies dyspnea Respiratory Respiratory: Denies cough and Denies dyspnea Endocrine Endocrine: Denies palpitations Physical Exam 2 Vital Signs: Vital Signs: Last Vital Signs Temp 99.7 F 10/17/24 15:33 Pulse 82 10/17/24 15:33 Resp 14 10/17/24 15:33 BP 116/66 10/17/24 15:33 Pulse Ox 94 10/17/24 15:33 O2 Del Method Room Air 10/17/24 15:33 O2 Flow Rate 2 10/10/24 08:59 BMI result Body Mass Index 21.9 Const: General: cooperative, comfortable, no acute distress, alert and awake Nutritional Appearance: average body habitus Orientation/consciousness: p atient oriented x3 Resp: Effort & Inspection: normal respiratory effort, able to speak in complete sentences, no respiratory distress and no use of accessory muscles Cardio: Rate: regular rate GI: Inspection: No distended Palpation (GI): Soft to palpation Skin: Other: chronic venous stasis skin changes Neuro: General: patient oriented x3 Objective Data Active Medications Acetaminophen (Acetaminophen 325 Mg Tablet) 975 mg PO Q6H PRN PRN Reason: Pain, Mild 1-3,fever,headache Albuterol Sulfate (Albuterol Sulfate 90 Mcg 8 Gm Inhaler) 2 puff INHALE Q4H PRN PRN Reason: Shortness Of Breath Or Wheezing Amiodarone HCl (Amiodarone Hcl 200 Mg Tablet) 200 mg PO DAILY [facility] Last Admin: 10/17/24 09:47 Dose: 200 mg Documented By: RADHA Buspirone HCl (Buspirone Hcl 5 Mg Tablet) 5 mg PO DAILY [facility] Last Admin: 10/17/24 09:44 Dose: 5 mg Documented By: RADHA Calcium Carbonate (Calcium Carbonate 750 Mg Tab.Chew) 750 mg PO Q4H PRN PRN Reason: Heartburn Last Admin: 10/13/24 20:53 Dose: 750 mg Documented By: MARIUSZ Cyclobenzaprine HCl (Cyclobenzaprine Hcl 5 Mg Tablet) 5 mg PO TID PRN PRN Reason: muscle spasms Dextrose (Dextrose 50 % 25 Gm/50 Ml Syringe) 25 gm IVPUSH Q15M PRN; Protocol PRN Reason: per Hypoglycemia Standing Ord. Docusate Sodium (Docusate Sodium 100 Mg Capsule) 100 mg PO BID [facility] Last Admin: 10/17/24 09:46 Dose: 100 mg Documented By: RADHA Ferrous Sulfate (Ferrous Sulfate 324 Mg Tablet.Dr) 324 mg PO DAILY [facility] Last Admin: 10/17/24 09:44 Dose: 324 mg Documented By: RADHA Fluticasone Propionate (Fluticasone Propionate 250 Mcg Blst.W.Dev) 1 puff INHALE RBID PRN PRN Reason: Shortness Of Breath Or Wheezing Furosemide (Furosemide 20 Mg/2 Ml Vial) 20 mg IVPUSH BID@0900,1800 [facility]; Protocol Last Admin: 10/17/24 09:44 Dose: 20 mg Documented By: RADHA Gabapentin (Gabapentin 300 Mg Capsule) 300 mg PO TID [facility] Last Admin: 10/17/24 09:44 Dose: 300 mg Documented By: RADHA Glucose (Glucose Gel 15 Gm Gel..Gram.) 15 gm PO Q15M PRN; Protocol PRN Reason: per Hypoglycemia Standing Ord. Insulin Human Lispro (Insulin Lispro 100 Unit/Ml 3 Ml Vial) 0 unit SUBCUT QIDACHS [facility]; Protocol Last Admin: 10/17/24 16:36 Dose: Not Given Documented By: RADHA Non-Admin Reason: No Insulin Coverage Lactic Acid (Ammonium Lactate 12 % Lotion 226 Gm Bottle) 1 appl TOPICAL DAILY [facility]; Protocol Last Admin: 10/17/24 09:48 Dose: 1 appl Documented By: RADHA Lidocaine (Lidocaine 4 % Patch Adh..Patch) 1 patch TRANSDERMA DAILY PRN PRN Reason: Pain Last Admin: 10/10/24 17:33 Dose: 1 patch Documented By: SYDNIE Lorazepam (Lorazepam 0.5 Mg Tablet) 0.5 mg PO Q8H PRN PRN Reason: Anxiety Last Admin: 10/16/24 20:38 Dose: 0.5 mg Documented By: MICHELLE Magnesium Citrate (Magnesium Citrate 300 Ml Solution) 300 ml PO DAILY PRN PRN Reason: Constipation Last Admin: 10/16/24 10:41 Dose: 300 ml Documented By: ENRIQUE Magnesium Hydroxide (Milk Of Magnesia 30 Ml Oral.Susp) 30 ml PO DAILY PRN PRN Reason: Constipation Last Admin: 10/15/24 07:34 Dose: 30 ml Documented By: ENRIQUE Melatonin (Melatonin 3 Mg Tablet) 6 mg PO BEDTIME PRN PRN Reason: Insomnia Oxycodone HCl (Oxycodone Hcl Immed Release 5 Mg Tablet) 5 mg PO Q6H PRN PRN Reason: Pain, Severe (Pain Scale 7-10) Last Admin: 10/17/24 04:07 Dose: 5 mg Documented By: MICHELLE Senna (Sennosides 8.6 Mg Tablet) 8.6 mg PO DAILY [facility] Last Admin: 10/17/24 09:44 Dose: 8.6 mg Documented By: RADHA Sodium Biphosphate/Sodium Phosphate (Sodium Phosphate,[place]-Dibasic 133 Ml Enema) 133 ml [place] ONCE PRN PRN Reason: Constipation Last Admin: 10/15/24 22:23 Dose: 133 ml Documented By: ERNIE Sodium Chloride (0.9 % Sodium Chloride Flush 3 Ml Syringe) 3 ml IVFLUSH [facility] Last Admin: 10/17/24 16:37 Dose: Not Given Documented By: RADHA Non-Admin Reason: Previously Administered Spironolactone (Spironolactone 25 Mg Tablet) 12.5 mg PO DAILY [facility]; Protocol Last Admin: 10/17/24 09:44 Dose: 12.5 mg Documented By: RADHA Warfarin Sodium (Warfarin Sodium 1 Mg Tablet) 1 mg PO DAILY@1800 [facility] Labs 10/17/24 13:27 10/17/24 13:27 Labs: Laboratory Results - last 24 hr 10/16/24 10/17/24 10/17/24 21:06 06:46 07:03 MCV MCH MCHC RDW Plt Count MPV Absolute Nucleated RBC Nucleated RBC % (auto) Hold Purple Top SEE NOTE PT 65.2 H D INR 5.6 H* Anion Gap Estim Creat Clear Calc Estimated GFR POC Glucose 137 H 130 H Random Glucose Calcium 10/17/24 10/17/24 10/17/24 10:47 13:27 15:38 MCV 99.6 H MCH 31.1 MCHC 31.2 RDW 17.0 H Plt Count 174 MPV 9.3 L Absolute Nucleated RBC 0.000 Nucleated RBC % (auto) 0.0 Hold Purple Top PT INR Anion Gap 13 Estim Creat Clear Calc 28.9 Estimated GFR 33 POC Glucose 125 H 129 H Random Glucose 147 H Calcium 8.5 D Assessment and Plan (1) Supratherapeutic INR: Status: Acute Plan 64-year-old female with a history of asthma, hyperlipidemia,diabetes, mitral stenosis s/p replacement with mechanical valve, systolic heart failure with EF of 25-30 % on echo 07/2023, and persistent AFib, who presented to the ED due to abdominal pain for an unknown period of time as well as back pain. In the ED she was found to be critically anemic and guaiac positive. She was transfused with 2 units PRBC. INR was supratherapeutic at 7.6. Initial hemoglobin was 6.5, repeat 8.7, vitamin K was deferred. Abdominal pain> Resolving Secondary to constipation on KUB Senna, Colace and fleets enema mag citrate added +small BM Supratherapeutic INR. back up again INR 5.6, hold today's dose resume home dose tomorrow if INR trending down follow INR mild hyperkalemia repeat bmp in am Acute on chronic HFrEF History of severe LV systolic dysfunction secondary to nonischemic cardiomyopathy, severe aortic stenosis, severe tricuspid regurgitation, pulmonary hypertension She has done poorly with overall medical therapy and there has been concerned about pursuing percutaneous treatment of her aortic as well as tricuspid well pathology although felt that she was too high risk and was not able to be performed at [facility] was referred to [place] Bilateral pleural effusion/pulmonary edema cardiology following-resume po lasix Continue Aldactone Acute on chronic anemia no evidence of acute blood loss s/p 3U Prbc. H/H stable Avoid vitamin K to avoid risk of thrombotic complications due to mechanical mitral valve Seen by GI- Due to complicated cardiac history, recommend conservative management, transfuse as needed to keep hematocrit above 30; if develops active bleeding, would need transfer to tertiary care facility CKD3 scr up and down, around baseline follow closely Prolonged QTC Okay to continue amiodarone per Cardiology electrolytes normal avoid QT prolonging agents Mild persistent asthma, no acute exacerbation Continue baseline meds Type 2 diabetes Hold Januvia sliding scale insulin Persistent AFib EKG with AFib, rate controlled holding Coumadin due to supratherapeutic INR continue amiodarone Chronic back pain continue lidocaine patch gabapentin cyclobenzaprine on hold continue oxycodone Full code VTE prophylaxis:Coumadin on hold dispo: home with services, likely in am Quality Stroke Does the patient have a stroke diagnosis?: No VTE Prior VTE?: No VTE Risk Level:: Medical - moderate - high VTE Device Contraindication: N/A - Device Ordered VTE Drug Contraindication: Treatment Not Indicated
[2024-10-17] MEDS: Furosemide 20 MG TABLET PO ×2 (17:10→20:29)
[2024-10-17 20:00] VITALS: BP 146/55; PULSE 75; RESP 16; TEMP 37; O2SAT 93
[2024-10-17] MEDS: LORazepam 0.5 MG TABLET PO (20:29)
[2024-10-17 21:09] LABS: Glucose, Whole Blood 172 mg/dL (60-115)
[2024-10-17 23:30] VITALS: BP 127/74; PULSE 83; RESP 16; TEMP 36; O2SAT 92
[2024-10-18] VITALS (7 sets, daily range): BP systolic 104–166; BP diastolic 52–97; PULSE 69–97; RESP 16–18; TEMP 36.2–36.9; O2SAT 91–97
[2024-10-18] MEDS: oxyCODONE HCl Immed Release 5 MG TABLET PO ×3 (02:42→23:30)
[2024-10-18] MEDS: Prochlorperazine Edisylate 10 MG/2 ML VIAL 5 MG IV (06:15)
[2024-10-18 07:19] LABS: INTERNATIONAL NORM RATIO 3.9 (0.9-1.1); Prothrombin Time 45.9 SEC (10.9-12.4)
[2024-10-18 07:23] LABS: Anion Gap 12 (12-20); Blood Urea Nitrogen 80 mg/dL (9-16); Calcium 8.3 mg/dL (8.4-10.2); Carbon Dioxide 27 mmol/L (22-29); Chloride 103 mmol/L (96-108); Creatinine Clr Calc Pharmacy 23.2; Estimated Glomerular Filt Rate 25; Glucose Random 144 mg/dL (60-115); Potassium 5.8 mmol/L (3.3-5.1); Sodium 136 mmol/L (135-145)
[2024-10-18 07:35] LABS: Glucose, Whole Blood 160 mg/dL (60-115)
[2024-10-18] MEDS: busPIRone HCl 5 MG TABLET PO (08:16)
[2024-10-18] MEDS: Gabapentin 300 MG CAPSULE PO ×3 (08:16→20:44)
[2024-10-18] MEDS: Furosemide 20 MG TABLET PO ×2 (08:16→11:58)
[2024-10-18] MEDS: Ferrous Sulfate 324 MG TABLET.DR PO (08:16)
[2024-10-18] MEDS: Sennosides 8.6 MG TABLET PO (08:16)
[2024-10-18] MEDS: Insulin Lispro 100 UNIT/ML 3 ML VIAL SUBCUT (08:16)
[2024-10-18] MEDS: Amiodarone HCL 200 MG TABLET PO (08:16)
[2024-10-18] MEDS: Spironolactone 25 MG TABLET 12.5 MG PO (08:17)
[2024-10-18] MEDS: Docusate Sodium 100 MG CAPSULE PO ×2 (08:17→20:44)
[2024-10-18] MEDS: Sodium Zirconium Cyclosilicate 10 GM POWD.PACK PO (11:58)
[2024-10-18] MEDS: Ammonium Lactate 12 % Lotion 226 GM BOTTLE 1 APPL TOPICAL (12:02)
[2024-10-18 12:12] LABS: Glucose, Whole Blood 118 mg/dL (60-115)
[2024-10-18 15:17] LABS: Glucose, Whole Blood 126 mg/dL (60-115)
--- NOTE | 2024-10-18 16:05 | HO.PM.IMPN ---
Subjective Subjective Date of Service: 10/18/24 Interval History: seen and examined this morning follow up for elevated INR, anemia no sob, ambulating in room Review of Systems Review of Systems: Yes all other systems are reviewed and are negative Constitutional Constitutional: Denies chills and Denies fever(s) Cardiovascular Cardiovascular: Denies chest pain, Denies palpitations and Denies dyspnea Respiratory Respiratory: Denies cough and Denies dyspnea Gastrointestinal Gastrointestinal: Denies abdominal pain Endocrine Endocrine: Denies palpitations Physical Exam Vital Signs: Vital Signs: Last Vital Signs Temp 98.1 F 10/18/24 15:08 Pulse 83 10/18/24 15:08 Resp 18 10/18/24 15:08 BP 136/97 H 10/18/24 15:08 Pulse Ox 96 10/18/24 15:08 O2 Del Method Room Air 10/18/24 15:08 O2 Flow Rate 2 10/10/24 08:59 BMI result Body Mass Index 21.9 Const: General: cooperative, comfortable, no acute distress, alert and awake Nutritional Appearance: average body habitus Orientation/consciousness: patient oriented x3 Resp: Effort & Inspection: normal respiratory effort, able to speak in complete sentences, no respiratory distress and no use of accessory muscles Cardio: Rate: regular rate GI: Inspection: No distended Palpation (GI): Soft to palpation Skin: Other: chronic venous stasis skin changes Neuro: General: patient oriented x3 Objective Data Active Medications Acetaminophen (Acetaminophen 325 Mg Tablet) 975 mg PO Q6H PRN PRN Reason: Pain, Mild 1-3,fever,headache Albuterol Sulfate (Albuterol Sulfate 90 Mcg 8 Gm Inhaler) 2 puff INHALE Q4H PRN PRN Reason: Shortness Of Breath Or Wheezing Amiodarone HCl (Amiodarone Hcl 200 Mg Tablet) 200 mg PO DAILY [facility] Last Admin: 10/18/24 08:16 Dose: 200 mg Documented By: RADHA Buspirone HCl (Buspirone Hcl 5 Mg Tablet) 5 mg PO DAILY [facility] Last Admin: 10/18/24 08:16 Dose: 5 mg Documented By: RADHA Calcium Carbonate (Calcium Carbonate 750 Mg Tab.Chew) 750 mg PO Q4H PRN PRN Reason: Heartburn Last Admin: 10/13/24 20:53 Dose: 750 mg Documented By: MARIUSZ Cyclobenzaprine HCl (Cyclobenzaprine Hcl 5 Mg Tablet) 5 mg PO TID PRN PRN Reason: muscle spasms Dextrose (Dextrose 50 % 25 Gm/50 Ml Syringe) 25 gm IVPUSH Q15M PRN; Protocol PRN Reason: per Hypoglycemia Standing Ord. Docusate Sodium (Docusate Sodium 100 Mg Capsule) 100 mg PO BID [facility] Last Admin: 10/18/24 08:17 Dose: 100 mg Documented By: RADHA Ferrous Sulfate (Ferrous Sulfate 324 Mg Tablet.Dr) 324 mg PO DAILY [facility] Last Admin: 10/18/24 08:16 Dose: 324 mg Documented By: RADHA Fluticasone Propionate (Fluticasone Propionate 250 Mcg Blst.W.Dev) 1 puff INHALE RBID PRN PRN Reason: Shortness Of Breath Or Wheezing Furosemide (Furosemide 20 Mg Tablet) 20 mg PO QID [facility]; Protocol Last Admin: 10/18/24 11:58 Dose: 20 mg Documented By: RADHA Gabapentin (Gabapentin 300 Mg Capsule) 300 mg PO TID [facility] Last Admin: 10/18/24 08:16 Dose: 300 mg Documented By: RADHA Glucose (Glucose Gel 15 Gm Gel..Gram.) 15 gm PO Q15M PRN; Protocol PRN Reason: per Hypoglycemia Standing Ord. Insulin Human Lispro (Insulin Lispro 100 Unit/Ml 3 Ml Vial) 0 unit SUBCUT QIDACHS [facility]; Protocol Last Admin: 10/18/24 12:02 Dose: Not Given Documented By: RADHA Non-Admin Reason: No Insulin Coverage Lactic Acid (Ammonium Lactate 12 % Lotion 226 Gm Bottle) 1 appl TOPICAL DAILY [facility]; Protocol Last Admin: 10/18/24 12:02 Dose: 1 appl Documented By: RADHA Lidocaine (Lidocaine 4 % Patch Adh..Patch) 1 patch TRANSDERMA DAILY PRN PRN Reason: Pain Last Admin: 10/10/24 17:33 Dose: 1 patch Documented By: SYDNIE Lorazepam (Lorazepam 0.5 Mg Tablet) 0.5 mg PO Q8H PRN PRN Reason: Anxiety Last Admin: 10/17/24 20:29 Dose: 0.5 mg Documented By: MICHELLE Magnesium Citrate (Magnesium Citrate 300 Ml Solution) 300 ml PO DAILY PRN PRN Reason: Constipation Last Admin: 10/16/24 10:41 Dose: 300 ml Documented By: ENRIQUE Magnesium Hydroxide (Milk Of Magnesia 30 Ml Oral.Susp) 30 ml PO DAILY PRN PRN Reason: Constipation Last Admin: 10/15/24 07:34 Dose: 30 ml Documented By: ENRIQUE Melatonin (Melatonin 3 Mg Tablet) 6 mg PO BEDTIME PRN PRN Reason: Insomnia Oxycodone HCl (Oxycodone Hcl Immed Release 5 Mg Tablet) 5 mg PO Q6H PRN PRN Reason: Pain, Severe (Pain Scale 7-10) Last Admin: 10/18/24 02:42 Dose: 5 mg Documented By: MICHELLE Senna (Sennosides 8.6 Mg Tablet) 8.6 mg PO DAILY [facility] Last Admin: 10/18/24 08:16 Dose: 8.6 mg Documented By: RADHA Sodium Biphosphate/Sodium Phosphate (Sodium Phosphate,[place]-Dibasic 133 Ml Enema) 133 ml [place] ONCE PRN PRN Reason: Constipation Last Admin: 10/15/24 22:23 Dose: 133 ml Documented By: ERNIE Sodium Chloride (0.9 % Sodium Chloride Flush 3 Ml Syringe) 3 ml [facility] Last Admin: 10/18/24 15:00 Dose: Not Given Documented By: RADHA Non-Admin Reason: Previously Administered Spironolactone (Spironolactone 25 Mg Tablet) 12.5 mg PO DAILY [facility]; Protocol Last Admin: 10/18/24 08:17 Dose: 12.5 mg Documented By: RADHA Warfarin Sodium (Warfarin Sodium 1 Mg Tablet) 1 mg PO DAILY@1800 [facility] Labs 10/17/24 13:27 10/18/24 06:23 Labs: Laboratory Results - last 24 hr 10/17/24 10/17/24 10/18/24 15:38 21:05 06:23 PT 45.9 H D INR 3.9 H Anion Gap 12 Estim Creat Clear Calc 23.2 Estimated GFR 25 POC Glucose 129 H 172 H Random Glucose 144 H Calcium 8.3 L 10/18/24 10/18/24 10/18/24 07:09 11:37 15:10 PT INR Anion Gap Estim Creat Clear Calc Estimated GFR POC Glucose 160 H 118 H 126 H Random Glucose Calcium Assessment and Plan (1) Supratherapeutic INR: Status: Acute (2) TORRI (acute kidney injury): Status: Acute (3) Hyperkalemia: Status: Acute Plan 64-year-old female with a history of asthma, hyperlipidemia,diabetes, mitral stenosis s/p replacement with mechanical valve, systolic heart failure with EF of 25-30 % on echo 07/2023, and persistent AFib, who presented to the ED due to abdominal pain for an unknown period of time as well as back pain. In the ED she was found to be critically anemic and guaiac positive. She was transfused with 2 units PRBC. INR was supratherapeutic at 7.6. Initial hemoglobin was 6.5, repeat 8.7, vitamin K was deferred. Abdominal pain> Resolving Secondary to constipation on KUB Senna, Colace and fleets enema having BMs Supratherapeutic INR. back up again INR 3.9 resume home dose of coumdin follow INR hyperkalemia hold lasix/aldactone give lokelma x1 follow bmp in am TORRI on ckd3 hold diuretics repeat bmp in am hold off off IVF due to CHF Acute on chronic HFrEF History of severe LV systolic dysfunction secondary to nonischemic cardiomyopathy, severe aortic stenosis, severe tricuspid regurgitation, pulmonary hypertension She has done poorly with overall medical therapy and there has been concerned about pursuing percutaneous treatment of her aortic as well as tricuspid well pathology although felt that she was too high risk and was not able to be performed at [facility] was referred to [place] Bilateral pleural effusion/pulmonary edema cardiology following-resume po lasix Continue Aldactone Acute on chronic anemia no evidence of acute blood loss s/p 3U Prbc. H/H stable Avoid vitamin K to avoid risk of thrombotic complications due to mechanical mitral valve Seen by GI- Due to complicated cardiac history, recommend conservative management, transfuse as needed to keep hematocrit above 30; if develops active bleeding, would need transfer to tertiary care facility Prolonged QTC Okay to continue amiodarone per Cardiology electrolytes normal avoid QT prolonging agents Mild persistent asthma, no acute exacerbation Continue baseline meds Type 2 diabetes Hold Januvia sliding scale insulin Persistent AFib EKG with AFib, rate controlled holding Coumadin due to supratherapeutic INR continue amiodarone Chronic back pain continue lidocaine patch gabapentin cyclobenzaprine on hold continue oxycodone Full code VTE prophylaxis:Coumadin on hold dispo: home with services, likely in am Quality Stroke Does the patient have a stroke diagnosis?: No VTE Prior VTE?: No VTE Risk Level:: Medical - moderate - high VTE Device Contraindication: N/A - Device Ordered VTE Drug Contraindication: Treatment Not Indicated
[2024-10-18] MEDS: 0.9 % Sodium Chloride Flush 3 ML SYRINGE IVFLUSH (16:43)
[2024-10-18] MEDS: Warfarin Sodium 1 MG TABLET PO (17:38)
[2024-10-18 20:39] LABS: Glucose, Whole Blood 141 mg/dL (60-115)
[2024-10-18] MEDS: LORazepam 0.5 MG TABLET PO (20:44)
[2024-10-19] VITALS (7 sets, daily range): BP systolic 105–131; BP diastolic 52–84; PULSE 76–95; RESP 16–18; TEMP 36.2–37.3; O2SAT 93–97; BMI 28.9
--- NOTE | 2024-10-19 01:45 | P.EN_ITS ---
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 She landed on her knees. She c/o pain in her left knee . Did not hit her head. Will obtain knee xray. Time Spent With Patient Time: Total time managing care of this patient today ____ minutes.
[2024-10-19 07:34] LABS: Glucose, Whole Blood 127 mg/dL (60-115)
[2024-10-19 08:14] LABS: INTERNATIONAL NORM RATIO 3.6 (0.9-1.1); Prothrombin Time 42.2 SEC (10.9-12.4)
[2024-10-19 08:15] LABS: Anion Gap 13 (12-20); Blood Urea Nitrogen 88 mg/dL (9-16); Calcium 8.4 mg/dL (8.4-10.2); Carbon Dioxide 27 mmol/L (22-29); Chloride 101 mmol/L (96-108); Creatinine Clr Calc Pharmacy 25.5; Estimated Glomerular Filt Rate 24; Glucose Random 127 mg/dL (60-115); Potassium 5.7 mmol/L (3.3-5.1); Sodium 135 mmol/L (135-145)
[2024-10-19] MEDS: Ferrous Sulfate 324 MG TABLET.DR PO (09:27)
[2024-10-19] MEDS: Gabapentin 300 MG CAPSULE PO (09:27)
[2024-10-19] MEDS: Amiodarone HCL 200 MG TABLET PO (09:27)
[2024-10-19] MEDS: 0.9 % Sodium Chloride Flush 3 ML SYRINGE IVFLUSH ×2 (09:28→17:14)
[2024-10-19] MEDS: busPIRone HCl 5 MG TABLET PO (09:33)
--- NOTE | 2024-10-19 10:06 | P.PNIM_ITS ---
Subjective Subjective Date of Service: 10/19/24 Interval History: seen and examined this morning follow up for anemia, chf now with torri, hyperkalemia slid off bed overnight, knee xrays negative. no pain today Review of Systems Review of Systems: Yes all other systems are reviewed and are negative Constitutional Constitutional: Denies chills and Denies fever(s) Cardiovascular Cardiovascular: Denies chest pain, Denies palpitations and Denies dyspnea Respiratory Respiratory: Denies cough and Denies dyspnea Gastrointestinal Gastrointestinal: Denies abdominal pain, Denies nausea and Denies vomiting Endocrine Endocrine: Denies palpitations Physical Exam 2 Vital Signs: Vital Signs: Last Vital Signs Temp 98.6 F 10/19/24 08:00 Pulse 87 10/19/24 08:00 Resp 18 10/19/24 08:00 BP 110/60 10/19/24 08:00 Pulse Ox 94 10/19/24 08:00 O2 Del Method Room Air 10/19/24 08:00 O2 Flow Rate 2 10/10/24 08:59 BMI result Body Mass Index 28.9 Const: General: cooperative, comfortable, no acute distress, alert and awake Nutritional Appearance: average body habitus Orientation/consciousness: p atient oriented x3 Resp: Effort & Inspection: normal respiratory effort, able to speak in complete sentences, no respiratory distress and no use of accessory muscles Cardio: Rate: regular rate GI: Inspection: No distended Palpation (GI): Soft to palpation Skin: Other: chronic venous stasis skin changes Neuro: General: patient oriented x3 Objective Data Active Medications Acetaminophen (Acetaminophen 325 Mg Tablet) 975 mg PO Q6H PRN PRN Reason: Pain, Mild 1-3,fever,headache Albuterol Sulfate (Albuterol Sulfate 90 Mcg 8 Gm Inhaler) 2 puff INHALE Q4H PRN PRN Reason: Shortness Of Breath Or Wheezing Amiodarone HCl (Amiodarone Hcl 200 Mg Tablet) 200 mg PO DAILY [facility] Last Admin: 10/19/24 09:27 Dose: 200 mg Documented By: SYDNIE Buspirone HCl (Buspirone Hcl 5 Mg Tablet) 5 mg PO DAILY [facility] Last Admin: 10/19/24 09:33 Dose: 5 mg Documented By: SYDNIE Calcium Carbonate (Calcium Carbonate 750 Mg Tab.Chew) 750 mg PO Q4H PRN PRN Reason: Heartburn Last Admin: 10/13/24 20:53 Dose: 750 mg Documented By: MARIUSZ Cyclobenzaprine HCl (Cyclobenzaprine Hcl 5 Mg Tablet) 5 mg PO TID PRN PRN Reason: muscle spasms Dextrose (Dextrose 50 % 25 Gm/50 Ml Syringe) 25 gm IVPUSH Q15M PRN; Protocol PRN Reason: per Hypoglycemia Standing Ord. Docusate Sodium (Docusate Sodium 100 Mg Capsule) 100 mg PO BID [facility] Last Admin: 10/19/24 09:33 Dose: Not Given Documented By: SYDNIE Non-Admin Reason: Patient Refused Ferrous Sulfate (Ferrous Sulfate 324 Mg Tablet.Dr) 324 mg PO DAILY [facility] Last Admin: 10/19/24 09:27 Dose: 324 mg Documented By: SYDNIE Fluticasone Propionate (Fluticasone Propionate 250 Mcg Blst.W.Dev) 1 puff INHALE RBID PRN PRN Reason: Shortness Of Breath Or Wheezing Furosemide (Furosemide 20 Mg Tablet) 20 mg PO QID [facility]; Protocol Last Admin: 10/18/24 11:58 Dose: 20 mg Documented By: RADHA Gabapentin (Gabapentin 300 Mg Capsule) 300 mg PO TID [facility] Last Admin: 10/19/24 09:27 Dose: 300 mg Documented By: SYDNIE Glucose (Glucose Gel 15 Gm Gel..Gram.) 15 gm PO Q15M PRN; Protocol PRN Reason: per Hypoglycemia Standing Ord. Insulin Human Lispro (Insulin Lispro 100 Unit/Ml 3 Ml Vial) 0 unit SUBCUT QIDACHS [facility]; Protocol Last Admin: 10/19/24 09:33 Dose: Not Given Documented By: SYDNIE Non-Admin Reason: No Insulin Coverage Lactic Acid (Ammonium Lactate 12 % Lotion 226 Gm Bottle) 1 appl TOPICAL DAILY [facility]; Protocol Last Admin: 10/18/24 12:02 Dose: 1 appl Documented By: RADHA Lidocaine (Lidocaine 4 % Patch Adh..Patch) 1 patch TRANSDERMA DAILY PRN PRN Reason: Pain Last Admin: 10/10/24 17:33 Dose: 1 patch Documented By: SYDNIE Lorazepam (Lorazepam 0.5 Mg Tablet) 0.5 mg PO Q8H PRN PRN Reason: Anxiety Last Admin: 10/18/24 20:44 Dose: 0.5 mg Documented By: STEPHANIE Magnesium Citrate (Magnesium Citrate 300 Ml Solution) 300 ml PO DAILY PRN PRN Reason: Constipation Last Admin: 10/16/24 10:41 Dose: 300 ml Documented By: ENRIQUE Magnesium Hydroxide (Milk Of Magnesia 30 Ml Oral.Susp) 30 ml PO DAILY PRN PRN Reason: Constipation Last Admin: 10/15/24 07:34 Dose: 30 ml Documented By: ENRIQUE Melatonin (Melatonin 3 Mg Tablet) 6 mg PO BEDTIME PRN PRN Reason: Insomnia Oxycodone HCl (Oxycodone Hcl Immed Release 5 Mg Tablet) 5 mg PO Q6H PRN PRN Reason: Pain, Severe (Pain Scale 7-10) Last Admin: 10/18/24 23:30 Dose: 5 mg Documented By: STEPHANIE Senna (Sennosides 8.6 Mg Tablet) 8.6 mg PO DAILY [facility] Last Admin: 10/19/24 09:34 Dose: Not Given Documented By: SYDNIE Non-Admin Reason: Patient Refused Sodium Biphosphate/Sodium Phosphate (Sodium Phosphate,[place]-Dibasic 133 Ml Enema) 133 ml [place] ONCE PRN PRN Reason: Constipation Last Admin: 10/15/24 22:23 Dose: 133 ml Documented By: ERNIE Sodium Chloride (0.9 % Sodium Chloride Flush 3 Ml Syringe) 3 ml IVFLUSH [facility] Last Admin: 10/19/24 09:28 Dose: 3 ml Documented By: SYDNIE Spironolactone (Spironolactone 25 Mg Tablet) 12.5 mg PO DAILY [facility]; Protocol Last Admin: 10/18/24 08:17 Dose: 12.5 mg Documented By: RADHA Warfarin Sodium (Warfarin Sodium 1 Mg Tablet) 1 mg PO DAILY@1800 [facility] Last Admin: 10/18/24 17:38 Dose: 1 mg Documented By: RADHA Labs 10/17/24 13:27 10/19/24 07:26 Labs: Laboratory Results - last 24 hr 10/18/24 10/18/24 10/18/24 11:37 15:10 20:35 Hold Purple Top PT INR Anion Gap Estim Creat Clear Calc Estimated GFR POC Glucose 118 H 126 H 141 H Random Glucose Calcium 10/19/24 10/19/24 07:26 07:31 Hold Purple Top SEE NOTE PT 42.2 H INR 3.6 H Anion Gap 13 Estim Creat Clear Calc 25.5 Estimated GFR 24 POC Glucose 127 H Random Glucose 127 H Calcium 8.4 Assessment and Plan (1) Hyperkalemia: Status: Acute (2) TORRI (acute kidney injury): Status: Acute (3) Decompensated heart failure: Status: Acute (4) Supratherapeutic INR: Status: Acute Plan 64-year-old female with a history of asthma, hyperlipidemia,diabetes, mitral stenosis s/p replacement with mechanical valve, systolic heart failure with EF of 25-30 % on echo 07/2023, and persistent AFib, who presented to the ED due to abdominal pain for an unknown period of time as well as back pain. In the ED she was found to be critically anemic and guaiac positive. She was transfused with 2 units PRBC. INR was supratherapeutic at 7.6. Initial hemoglobin was 6.5, repeat 8.7, vitamin K was deferred. TORRI on ckd3 scr up to 2.09 hold diuretics repeat bmp in am hold off off IVF due to CHF if renal function remains elevated will involve Nephrology hyperkalemia k 5.7 likely due to above hold lasix/aldactone lokelma follow bmp in am Abdominal pain> Resolved Secondary to constipation on KUB Senna, Colace and fleets enema having BMs Supratherapeutic INR INR 3.6 resume home dose of coumdin follow INR Acute on chronic HFrEF History of severe LV systolic dysfunction secondary to nonischemic cardiomyopathy, severe aortic stenosis, severe tricuspid regurgitation, pulmonary hypertension She has done poorly with overall medical therapy and there has been concerned about pursuing percutaneous treatment of her aortic as well as tricuspid well pathology although felt that she was too high risk and was not able to be performed at [facility] was referred to [place] Bilateral pleural effusion/pulmonary edema cardiology following-initially treated with IV lasix, which patient insisted on continueing but then resumed po lasix. lasix and aldactone now on hold for torri Acute on chronic anemia no evidence of acute blood loss s/p 3U Prbc. H/H stable Avoid vitamin K to avoid risk of thrombotic complications due to mechanical mitral valve Seen by GI- Due to complicated cardiac history, recommend conservative management, transfuse as needed to keep hematocrit above 30; if develops active bleeding, would need transfer to tertiary care facility Prolonged QTC Okay to continue amiodarone per Cardiology electrolytes normal avoid QT prolonging agents Mild persistent asthma, no acute exacerbation Continue baseline meds Type 2 diabetes Hold Januvia sliding scale insulin Persistent AFib EKG with AFib, rate controlled holding Coumadin due to supratherapeutic INR continue amiodarone Chronic back pain continue lidocaine patch gabapentin cyclobenzaprine on hold continue oxycodone Full code VTE prophylaxis:Coumadin on hold dispo: home with services when medically ready Quality Stroke Does the patient have a stroke diagnosis?: No VTE Prior VTE?: No VTE Risk Level:: Medical - moderate - high VTE Device Contraindication: N/A - Device Ordered VTE Drug Contraindication: Treatment Not Indicated
[2024-10-19 11:33] LABS: Glucose, Whole Blood 172 mg/dL (60-115)
[2024-10-19] MEDS: oxyCODONE HCl Immed Release 5 MG TABLET PO ×2 (11:51→23:37)
[2024-10-19] MEDS: Insulin Lispro 100 UNIT/ML 3 ML VIAL SUBCUT ×2 (11:52→21:57)
[2024-10-19] MEDS: Sodium Zirconium Cyclosilicate 10 GM POWD.PACK PO (11:57)
--- NOTE | 2024-10-19 13:38 | PC.NURSE ---
refusing bed and chair alarm, refusing bed rails , only 1 bed rail is up , pt and family educated on safety , high risk precaution. Pt agreeable to utilize call robb when needs to get up to the commode
[2024-10-19 16:10] LABS: Glucose, Whole Blood 110 mg/dL (60-115)
[2024-10-19] MEDS: Warfarin Sodium 1 MG TABLET PO (17:35)
[2024-10-19 20:36] LABS: Glucose, Whole Blood 177 mg/dL (60-115)
[2024-10-19] MEDS: Docusate Sodium 100 MG CAPSULE PO (21:57)
[2024-10-19] MEDS: LORazepam 0.5 MG TABLET PO (21:57)
[2024-10-20 03:32] VITALS: BP 137/85; PULSE 84; RESP 16; TEMP 36.7; O2SAT 92
[2024-10-20 07:12] VITALS: BP 137/78; PULSE 92; RESP 18; TEMP 36.7; O2SAT 96
[2024-10-20 07:46] LABS: Prothrombin Time 35.5 SEC (10.9-12.4)
[2024-10-20 07:58] LABS: Anion Gap 15 (12-20); Blood Urea Nitrogen 86 mg/dL (9-16); Calcium 8.6 mg/dL (8.4-10.2); Carbon Dioxide 26 mmol/L (22-29); Chloride 100 mmol/L (96-108); Creatinine Clr Calc Pharmacy 27.3; Estimated Glomerular Filt Rate 26; Glucose Random 125 mg/dL (60-115); Sodium 136 mmol/L (135-145)
[2024-10-20 08:31] LABS: Glucose, Whole Blood 159 mg/dL (60-115)
[2024-10-20] MEDS: Ferrous Sulfate 324 MG TABLET.DR PO (08:46)
[2024-10-20] MEDS: busPIRone HCl 5 MG TABLET PO (08:46)
[2024-10-20] MEDS: Docusate Sodium 100 MG CAPSULE PO ×2 (08:46→20:47)
[2024-10-20] MEDS: Amiodarone HCL 200 MG TABLET PO (08:46)
[2024-10-20] MEDS: 0.9 % Sodium Chloride Flush 3 ML SYRINGE IVFLUSH ×3 (08:46→20:48)
[2024-10-20] MEDS: Sennosides 8.6 MG TABLET PO (08:46)
[2024-10-20] MEDS: Insulin Lispro 100 UNIT/ML 3 ML VIAL SUBCUT ×2 (08:46→17:10)
[2024-10-20] MEDS: oxyCODONE HCl Immed Release 5 MG TABLET PO ×2 (09:29→20:47)
[2024-10-20 11:03] VITALS: BP 135/69; PULSE 91; RESP 18; TEMP 36.8; O2SAT 95
[2024-10-20 11:29] LABS: Glucose, Whole Blood 121 mg/dL (60-115)
[2024-10-20] MEDS: Gabapentin 300 MG CAPSULE PO ×2 (12:23→20:47)
--- NOTE | 2024-10-20 12:50 | P.PNIM_ITS ---
Subjective Subjective Date of Service: 10/20/24 Interval History: seen and examined this morning follow up for chf, anemia, torri, hyperkalemia patient feels better today but legs feeling tight, with increasing leg swelling Review of Systems Review of Systems: Yes all other systems are reviewed and are negative Constitutional Constitutional: Denies chills and Denies fever(s) ENT Ears, Nose, Mouth, and Throat: Denies dizziness Cardiovascular Cardiovascular: Denies chest pain, Denies palpitations and Denies dyspnea Respiratory Respiratory: Denies cough and Denies dyspnea Gastrointestinal Gastrointestinal: Denies abdominal pain, Denies diarrhea, Denies nausea and Denies vomiting Neurologic Neurologic: Denies dizziness Endocrine Endocrine: Denies palpitations Physical Exam 2 Vital Signs: Vital Signs: Last Vital Signs Temp 98.2 F 10/20/24 11:03 Pulse 91 10/20/24 11:03 Resp 18 10/20/24 11:03 BP 135/69 10/20/24 11:03 Pulse Ox 95 10/20/24 11:03 O2 Del Method Room Air 10/20/24 11:03 O2 Flow Rate 2 10/10/24 08:59 BMI result Body Mass Index 28.9 Const: General: cooperative, comfortable, no acute distress, alert and awake Nutritional Appearance: average body habitus Orientation/consciousness: p atient oriented x3 Resp: Effort & Inspection: normal respiratory effort, able to speak in complete sentences, no respiratory distress and no use of accessory muscles A uscultation: clear to auscultation bilaterally Cardio: Rate: regular rate GI: Inspection: No distended Palpation (GI): Soft to palpation Skin: Other: chronic venous stasis skin changes; b/l leg edema bruise left knee Neuro: General: patient oriented x3 Objective Data Active Medications Acetaminophen (Acetaminophen 325 Mg Tablet) 975 mg PO Q6H PRN PRN Reason: Pain, Mild 1-3,fever,headache Albuterol Sulfate (Albuterol Sulfate 90 Mcg 8 Gm Inhaler) 2 puff INHALE Q4H PRN PRN Reason: Shortness Of Breath Or Wheezing Amiodarone HCl (Amiodarone Hcl 200 Mg Tablet) 200 mg PO DAILY [facility] Last Admin: 10/20/24 08:46 Dose: 200 mg Documented By: TERESA Buspirone HCl (Buspirone Hcl 5 Mg Tablet) 5 mg PO DAILY [facility] Last Admin: 10/20/24 08:46 Dose: 5 mg Documented By: TERESA Calcium Carbonate (Calcium Carbonate 750 Mg Tab.Chew) 750 mg PO Q4H PRN PRN Reason: Heartburn Last Admin: 10/13/24 20:53 Dose: 750 mg Documented By: MARIUSZ Cyclobenzaprine HCl (Cyclobenzaprine Hcl 5 Mg Tablet) 5 mg PO TID PRN PRN Reason: muscle spasms Dextrose (Dextrose 50 % 25 Gm/50 Ml Syringe) 25 gm IVPUSH Q15M PRN; Protocol PRN Reason: per Hypoglycemia Standing Ord. Docusate Sodium (Docusate Sodium 100 Mg Capsule) 100 mg PO BID [facility] Last Admin: 10/20/24 08:46 Dose: 100 mg Documented By: TERESA Ferrous Sulfate (Ferrous Sulfate 324 Mg Tablet.Dr) 324 mg PO DAILY [facility] Last Admin: 10/20/24 08:46 Dose: 324 mg Documented By: TERESA Fluticasone Propionate (Fluticasone Propionate 250 Mcg Blst.W.Dev) 1 puff INHALE RBID PRN PRN Reason: Shortness Of Breath Or Wheezing Furosemide (Furosemide 20 Mg Tablet) 20 mg PO BID@0900,1800 [facility]; Protocol Gabapentin (Gabapentin 300 Mg Capsule) 300 mg PO BID [facility] Last Admin: 10/20/24 12:23 Dose: 300 mg Documented By: TERESA Glucose (Glucose Gel 15 Gm Gel..Gram.) 15 gm PO Q15M PRN; Protocol PRN Reason: per Hypoglycemia Standing Ord. Insulin Human Lispro (Insulin Lispro 100 Unit/Ml 3 Ml Vial) 0 unit SUBCUT QIDACHS [facility]; Protocol Last Admin: 10/20/24 12:13 Dose: Not Given Documented By: TERESA Non-Admin Reason: No Insulin Coverage Lactic Acid (Ammonium Lactate 12 % Lotion 226 Gm Bottle) 1 appl TOPICAL DAILY [facility]; Protocol Last Admin: 10/20/24 08:47 Dose: Not Given Documented By: TERESA Non-Admin Reason: Patient Refused Lidocaine (Lidocaine 4 % Patch Adh..Patch) 1 patch TRANSDERMA DAILY PRN PRN Reason: Pain Last Admin: 10/10/24 17:33 Dose: 1 patch Documented By: SYDNIE Lorazepam (Lorazepam 0.5 Mg Tablet) 0.5 mg PO Q8H PRN PRN Reason: Anxiety Last Admin: 10/19/24 21:57 Dose: 0.5 mg Documented By: STEPHANIE Magnesium Citrate (Magnesium Citrate 300 Ml Solution) 300 ml PO DAILY PRN PRN Reason: Constipation Last Admin: 10/16/24 10:41 Dose: 300 ml Documented By: ENRIQUE Magnesium Hydroxide (Milk Of Magnesia 30 Ml Oral.Susp) 30 ml PO DAILY PRN PRN Reason: Constipation Last Admin: 10/15/24 07:34 Dose: 30 ml Documented By: ENRIQUE Melatonin (Melatonin 3 Mg Tablet) 6 mg PO BEDTIME PRN PRN Reason: Insomnia Oxycodone HCl (Oxycodone Hcl Immed Release 5 Mg Tablet) 5 mg PO Q6H PRN PRN Reason: Pain, Severe (Pain Scale 7-10) Last Admin: 10/20/24 09:29 Dose: 5 mg Documented By: TERESA Senna (Sennosides 8.6 Mg Tablet) 8.6 mg PO DAILY [facility] Last Admin: 10/20/24 08:46 Dose: 8.6 mg Documented By: TERESA Sodium Biphosphate/Sodium Phosphate (Sodium Phosphate,[place]-Dibasic 133 Ml Enema) 133 ml [place] ONCE PRN PRN Reason: Constipation Last Admin: 10/15/24 22:23 Dose: 133 ml Documented By: ERNIE Sodium Chloride (0.9 % Sodium Chloride Flush 3 Ml Syringe) 3 ml IVFSH [facility] Last Admin: 10/20/24 08:46 Dose: 3 ml Documented By: TERESA Spironolactone (Spironolactone 25 Mg Tablet) 12.5 mg PO DAILY [facility]; Protocol Last Admin: 10/18/24 08:17 Dose: 12.5 mg Documented By: FOSTEKPaul Warfarin Sodium (Warfarin Sodium 1 Mg Tablet) 1 mg PO DAILY@1800 [facility] Last Admin: 10/19/24 17:35 Dose: 1 mg Documented By: SYDNIE Labs 10/17/24 13:27 10/20/24 07:03 Labs: Laboratory Results - last 24 hr 10/19/24 10/19/24 10/20/24 16:04 20:30 07:03 Hold Purple Top SEE NOTE PT 35.5 H INR 3.0 H Anion Gap 15 Estim Creat Clear Calc 27.3 Estimated GFR 26 POC Glucose 110 177 H Random Glucose 125 H Calcium 8.6 10/20/24 10/20/24 08:26 11:08 Hold Purple Top PT INR Anion Gap Estim Creat Clear Calc Estimated GFR POC Glucose 159 H 121 H Random Glucose Calcium Assessment and Plan (1) TORRI (acute kidney injury): Status: Acute (2) Hyperkalemia: Status: Acute (3) Decompensated heart failure: Status: Acute Plan 64-year-old female with a history of asthma, hyperlipidemia,diabetes, mitral stenosis s/p replacement with mechanical valve, systolic heart failure with EF of 25-30 % on echo 07/2023, and persistent AFib, who presented to the ED due to abdominal pain for an unknown period of time as well as back pain. In the ED she was found to be critically anemic and guaiac positive. She was transfused with 2 units PRBC. INR was supratherapeutic at 7.6. Initial hemoglobin was 6.5, repeat 8.7, vitamin K was deferred. TORRI on ckd3 creatinine 1.95 today diuretics have been on hold, will resume lower dose of po lasix due to increasing leg edema repeat bmp in am hold off off IVF due to CHF if renal function remains elevated will involve Nephrology hyperkalemia resolved with lokelma aldactone on hold follow bmp Abdominal pain> Resolved Secondary to constipation on KUB Senna, Colace and fleets enema having BMs Supratherapeutic INR INR 3.0 continue home dose of coumdin follow INR Acute on chronic HFrEF History of severe LV systolic dysfunction secondary to nonischemic cardiomyopathy, severe aortic stenosis, severe tricuspid regurgitation, pulmonary hypertension She has done poorly with overall medical therapy and there has been concerned about pursuing percutaneous treatment of her aortic as well as tricuspid well pathology although felt that she was too high risk and was not able to be performed at [facility] was referred to [place] Bilateral pleural effusion/pulmonary edema cardiology following-initially treated with IV lasix, which patient insisted on continuing but then resumed po lasix. lasix/aldactone placed on hold 10/18 for torri due to increasing leg edema will resume po lasix at lower dose palliative care has been recommended, discussed with pt and daughter Acute on chronic anemia no evidence of acute blood loss s/p 3U Prbc. H/H stable Avoid vitamin K to avoid risk of thrombotic complications due to mechanical mitral valve Seen by GI- Due to complicated cardiac history, recommend conservative management, transfuse as needed to keep hematocrit above 30; if develops active bleeding, would need transfer to tertiary care facility Prolonged QTC Okay to continue amiodarone per Cardiology electrolytes normal avoid QT prolonging agents Mild persistent asthma, no acute exacerbation Continue baseline meds Type 2 diabetes Hold Januvia sliding scale insulin Persistent AFib EKG with AFib, rate controlled holding Coumadin due to supratherapeutic INR continue amiodarone Chronic back pain continue lidocaine patch gabapentin cyclobenzaprine on hold continue oxycodone Full code VTE prophylaxis:Coumadin on hold dispo: home with services when medically ready, will need close INR monitoring Quality Stroke Does the patient have a stroke diagnosis?: No VTE Prior VTE?: No VTE Risk Level:: Medical - moderate - high VTE Device Contraindication: N/A - Device Ordered VTE Drug Contraindication: Treatment Not Indicated
[2024-10-20] MEDS: Calcium Carbonate 750 MG TAB.CHEW PO (15:11)
[2024-10-20 15:34] LABS: Glucose, Whole Blood 188 mg/dL (60-115)
[2024-10-20 15:46] VITALS: BP 140/75; PULSE 85; RESP 18; TEMP 36.9
[2024-10-20 17:10] VITALS: BP 140/75
[2024-10-20] MEDS: Furosemide 20 MG TABLET PO (17:10)
[2024-10-20] MEDS: Warfarin Sodium 1 MG TABLET PO (17:10)
[2024-10-20 20:00] VITALS: BP 139/84; PULSE 83; RESP 18; TEMP 36.8; O2SAT 96
[2024-10-20 20:29] LABS: Glucose, Whole Blood 139 mg/dL (60-115)
[2024-10-21] VITALS (7 sets, daily range): BP systolic 115–153; BP diastolic 57–84; PULSE 76–86; RESP 15–18; TEMP 36.1–37.1; O2SAT 92–97
[2024-10-21] MEDS: LORazepam 0.5 MG TABLET PO ×2 (00:58→22:38)
[2024-10-21] MEDS: oxyCODONE HCl Immed Release 5 MG TABLET PO ×2 (02:06→19:51)
[2024-10-21 06:18] LABS: INTERNATIONAL NORM RATIO 3.1 (0.9-1.1); Prothrombin Time 35.7 SEC (10.9-12.4)
[2024-10-21 06:28] LABS: Anion Gap 15 (12-20); Blood Urea Nitrogen 86 mg/dL (9-16); Calcium 8.3 mg/dL (8.4-10.2); Carbon Dioxide 25 mmol/L (22-29); Chloride 101 mmol/L (96-108); Creatinine Clr Calc Pharmacy 28.3; Estimated Glomerular Filt Rate 27; Glucose Random 152 mg/dL (60-115); Sodium 136 mmol/L (135-145)
[2024-10-21 07:15] LABS: Glucose, Whole Blood 136 mg/dL (60-115)
[2024-10-21] MEDS: Sennosides 8.6 MG TABLET PO (09:54)
[2024-10-21] MEDS: Amiodarone HCL 200 MG TABLET PO (09:55)
[2024-10-21] MEDS: Gabapentin 300 MG CAPSULE PO ×2 (09:55→21:20)
[2024-10-21] MEDS: Furosemide 20 MG TABLET PO (09:55)
[2024-10-21] MEDS: Ferrous Sulfate 324 MG TABLET.DR PO (09:55)
[2024-10-21] MEDS: Docusate Sodium 100 MG CAPSULE PO ×2 (09:55→21:20)
[2024-10-21] MEDS: 0.9 % Sodium Chloride Flush 3 ML SYRINGE IVFLUSH ×3 (09:57→21:21)
[2024-10-21 11:25] LABS: Glucose, Whole Blood 131 mg/dL (60-115)
--- NOTE | 2024-10-21 11:48 | HO.PM.IMPN ---
Subjective Subjective Date of Service: 10/21/24 Interval History: seen and examined this morning follow up for chf, anemia, alma delia, hyperkalemia patient feels better today but has back pain Review of Systems Review of Systems: Yes all other systems are reviewed and are negative Constitutional Constitutional: Denies chills and Denies fever(s) ENT Ears, Nose, Mouth, and Throat: Denies dizziness Cardiovascular Cardiovascular: Denies chest pain, Denies palpitations and Denies dyspnea Respiratory Respiratory: Denies cough and Denies dyspnea Gastrointestinal Gastrointestinal: Denies abdominal pain, Denies diarrhea, Denies nausea and Denies vomiting Neurologic Neurologic: Denies dizziness Endocrine Endocrine: Denies palpitations Physical Exam Vital Signs: Vital Signs: Last Vital Signs Temp 97.1 F 10/21/24 11:29 Pulse 78 10/21/24 11:29 Resp 15 10/21/24 11:29 BP 153/84 H 10/21/24 11:29 Pulse Ox 94 10/21/24 11:29 O2 Del Method Room Air 10/21/24 11:29 O2 Flow Rate 2 10/10/24 08:59 BMI result Body Mass Index 28.9 Appearing in no acute distress lung sounds are clear to auscultation heart regular rate rhythm, clear S1, S2 positive bowel sounds, abdomen is soft, nontender neuro patient is alert x3, no focal deficits Chronic LE edema Objective Data Active Medications Acetaminophen (Acetaminophen 325 Mg Tablet) 975 mg PO Q6H PRN PRN Reason: Pain, Mild 1-3,fever,headache Albuterol Sulfate (Albuterol Sulfate 90 Mcg 8 Gm Inhaler) 2 puff INHALE Q4H PRN PRN Reason: Shortness Of Breath Or Wheezing Amiodarone HCl (Amiodarone Hcl 200 Mg Tablet) 200 mg PO DAILY [facility] Last Admin: 10/21/24 09:55 Dose: 200 mg Documented By: HUMBLE Buspirone HCl (Buspirone Hcl 5 Mg Tablet) 5 mg PO DAILY [facility] Last Admin: 10/21/24 09:54 Dose: 5 mg Documented By: HUMBLE Calcium Carbonate (Calcium Carbonate 750 Mg Tab.Chew) 750 mg PO Q4H PRN PRN Reason: Heartburn Last Admin: 10/20/24 15:11 Dose: 750 mg Documented By: TERESA Cyclobenzaprine HCl (Cyclobenzaprine Hcl 5 Mg Tablet) 5 mg PO TID PRN PRN Reason: muscle spasms Dextrose (Dextrose 50 % 25 Gm/50 Ml Syringe) 25 gm IVPUSH Q15M PRN; Protocol PRN Reason: per Hypoglycemia Standing Ord. Docusate Sodium (Docusate Sodium 100 Mg Capsule) 100 mg PO BID [facility] Last Admin: 10/21/24 09:55 Dose: 100 mg Documented By: HUMBLE Ferrous Sulfate (Ferrous Sulfate 324 Mg Tablet.Dr) 324 mg PO DAILY [facility] Last Admin: 10/21/24 09:55 Dose: 324 mg Documented By: HUMBLE Fluticasone Propionate (Fluticasone Propionate 250 Mcg Blst.W.Dev) 1 puff INHALE RBID PRN PRN Reason: Shortness Of Breath Or Wheezing Furosemide (Furosemide 20 Mg Tablet) 20 mg PO BID@0900,1800 [facility]; Protocol Last Admin: 10/21/24 09:55 Dose: 20 mg Documented By: HUMBLE Gabapentin (Gabapentin 300 Mg Capsule) 300 mg PO BID [facility] Last Admin: 10/21/24 09:55 Dose: 300 mg Documented By: HUMBLE Glucose (Glucose Gel 15 Gm Gel..Gram.) 15 gm PO Q15M PRN; Protocol PRN Reason: per Hypoglycemia Standing Ord. Insulin Human Lispro (Insulin Lispro 100 Unit/Ml 3 Ml Vial) 0 unit SUBCUT QIDACHS [facility]; Protocol Last Admin: 10/21/24 09:56 Dose: Not Given Documented By: HUMBLE Non-Admin Reason: No Insulin Coverage Lactic Acid (Ammonium Lactate 12 % Lotion 226 Gm Bottle) 1 appl TOPICAL DAILY [facility]; Protocol Last Admin: 10/20/24 08:47 Dose: Not Given Documented By: TERESA Non-Admin Reason: Patient Refused Lidocaine (Lidocaine 4 % Patch Adh..Patch) 1 patch TRANSDERMA DAILY PRN PRN Reason: Pain Last Admin: 10/10/24 17:33 Dose: 1 patch Documented By: SYDNIE Lorazepam (Lorazepam 0.5 Mg Tablet) 0.5 mg PO Q8H PRN PRN Reason: Anxiety Last Admin: 10/21/24 00:58 Dose: 0.5 mg Documented By: ANTOINC Magnesium Citrate (Magnesium Citrate 300 Ml Solution) 300 ml PO DAILY PRN PRN Reason: Constipation Last Admin: 10/16/24 10:41 Dose: 300 ml Documented By: ENRIQUE Magnesium Hydroxide (Milk Of Magnesia 30 Ml Oral.Susp) 30 ml PO DAILY PRN PRN Reason: Constipation Last Admin: 10/15/24 07:34 Dose: 30 ml Documented By: ENRIQUE Melatonin (Melatonin 3 Mg Tablet) 6 mg PO BEDTIME PRN PRN Reason: Insomnia Oxycodone HCl (Oxycodone Hcl Immed Release 5 Mg Tablet) 5 mg PO Q6H PRN PRN Reason: Pain, Severe (Pain Scale 7-10) Last Admin: 10/21/24 02:06 Dose: 5 mg Documented By: ANTOINElier Senna (Sennosides 8.6 Mg Tablet) 8.6 mg PO DAILY [facility] Last Admin: 10/21/24 09:54 Dose: 8.6 mg Documented By: HUMBLE Sodium Biphosphate/Sodium Phosphate (Sodium Phosphate,[place]-Dibasic 133 Ml Enema) 133 ml [place] ONCE PRN PRN Reason: Constipation Last Admin: 10/15/24 22:23 Dose: 133 ml Documented By: ERNIE Sodium Chloride (0.9 % Sodium Chloride Flush 3 Ml Syringe) 3 ml IVFSH [facility] Last Admin: 10/21/24 09:57 Dose: 3 ml Documented By: HUMBLE Spironolactone (Spironolactone 25 Mg Tablet) 12.5 mg PO DAILY [facility]; Protocol Last Admin: 10/18/24 08:17 Dose: 12.5 mg Documented By: RADHA Warfarin Sodium (Warfarin Sodium 1 Mg Tablet) 1 mg PO DAILY@1800 [facility] Last Admin: 10/20/24 17:10 Dose: 1 mg Documented By: KAI Labs 10/17/24 13:27 10/21/24 05:15 Labs: Laboratory Results - last 24 hr 10/20/24 10/20/24 10/21/24 15:28 20:23 05:15 PT 35.7 H INR 3.1 H Anion Gap 15 Estim Creat Clear Calc 28.3 Estimated GFR 27 POC Glucose 188 H 139 H Random Glucose 152 H Calcium 8.3 L 10/21/24 10/21/24 07:12 11:19 PT INR Anion Gap Estim Creat Clear Calc Estimated GFR POC Glucose 136 H 131 H Random Glucose Calcium Assessment and Plan (1) ALMA DELIA (acute kidney injury): Status: Acute (2) Hyperkalemia: Status: Acute (3) Decompensated heart failure: Status: Acute Plan 64-year-old female with a history of asthma, hyperlipidemia,diabetes, mitral stenosis s/p replacement with mechanical valve, systolic heart failure with EF of 25-30 % on echo 07/2023, and persistent AFib, who presented to the ED due to abdominal pain for an unknown period of time as well as back pain. In the ED she was found to be critically anemic and guaiac positive. She was transfused with 2 units PRBC. INR was supratherapeutic at 7.6. Initial hemoglobin was 6.5, repeat 8.7, vitamin K was deferred. ALMA DELIA on ckd3 creatinine 1.88 today diuretics have been on hold, will resume lower dose of po lasix due to increasing leg edema nephro consult Supratherapeutic INR INR 3.1 continue home dose of coumadin follow INR Acute on chronic HFrEF History of severe LV systolic dysfunction secondary to nonischemic cardiomyopathy, severe aortic stenosis, severe tricuspid regurgitation, pulmonary hypertension She has done poorly with overall medical therapy and there has been concerned about pursuing percutaneous treatment of her aortic as well as tricuspid well pathology although felt that she was too high risk and was not able to be performed at [facility] was referred to [place] Bilateral pleural effusion/pulmonary edema cardiology following-initially treated with IV lasix, which patient insisted on continuing but then resumed po lasix. lasix/aldactone placed on hold 10/18 for alma delia due to increasing leg edema resumed po lasix at lower dose palliative care has been recommended, discussed with pt and daughter Hyperkalemia resolved with lokelma aldactone on hold follow bmp Abdominal pain. Resolved Secondary to constipation on KUB Senna, Colace and fleets enema having BMs Acute on chronic anemia no evidence of acute blood loss s/p 3U Prbc. H/H stable Avoid vitamin K to avoid risk of thrombotic complications due to mechanical mitral valve Seen by GI- Due to complicated cardiac history, recommend conservative management, transfuse as needed to keep hematocrit above 30; if develops active bleeding, would need transfer to tertiary care facility Prolonged QTC Okay to continue amiodarone per Cardiology electrolytes normal avoid QT prolonging agents Mild persistent asthma, no acute exacerbation Continue baseline meds Type 2 diabetes Hold Januvia sliding scale insulin Persistent AFib EKG with AFib, rate controlled continue amiodarone, coumadin Chronic back pain continue lidocaine patch gabapentin continue oxycodone Full code VTE prophylaxis, Coumadin on hold dispo: home with services when medically ready, will need close INR monitoring Quality Stroke Does the patient have a stroke diagnosis?: No VTE Prior VTE?: No VTE Risk Level:: Medical - moderate - high VTE Device Contraindication: N/A - Device Ordered VTE Drug Contraindication: Treatment Not Indicated
--- NOTE | 2024-10-21 12:56 | PM.CNNEP ---
History of Present Illness Reason for Consult Consult date: 10/21/24 Chief Complaint Chief complaint: GI bleed, abd pain History of Present Illness Narrative: 64-year-old female with a history of CKD well known to me admitted with anemia found to have worsening kidney function. She initially presented to the ED due to abdominal pain for an unknown period of time as well as back pain. In the ED she was found to be critically anemic and guaiac positive. She was transfused with 2 units PRBC. She complains of lower extremity edema and shortness of breath on exertion. Review of Systems Review of Systems 10 points ROS negative except for pertinent in HPI [facility] Past Medical History Medical History (Updated 10/21/24 @ 12:58 by Severino Miller MD) Chronic systolic heart failure Type 2 diabetes mellitus without complications Mild intermittent asthma Secondary pulmonary arterial hypertension Ovarian cancer Tricuspid valve insufficiency, non-rheumatic Non-rheumatic aortic stenosis Persistent atrial fibrillation Family History Family History Mother Heart disease Father Heart disease Diabetes Surgical History Surgical History H/O mitral valve replacement with mechanical valve Social History Social History Household Members: Spouse Housing: House Do you presently have visiting nurse or other home services: Yes Alcohol intake: never Comment: refused bed rails up Patient Tobacco Use Status: Former Tobacco user Years Smoked: 4 +/- Advance Directives Date on File: 10/23/23 service: No Meds Allergies Allergy/AdvReac Type Severity Reaction Status Date / Time lisinopril [LISINOPRIL] Allergy Severe ANGIOEDEMA Verified 10/09/24 15:45 morphine [MORPHINE] Allergy Severe ANAPHYLAXIS Verified 10/09/24 15:45 penicillin V Allergy Intermediate Itching Verified 10/09/24 15:45 cefaclor [From CECLOR] Allergy Unknown HIVES Verified 10/09/24 15:45 ciprofloxacin Allergy Unknown itchy Verified 10/09/24 15:45 codeine Allergy Unknown HIVES Verified 10/09/24 15:45 methylprednisolone Allergy Unknown Unknown Verified 10/09/24 15:45 nitrofurantoin Allergy Unknown Unknown Verified 10/09/24 15:45 olmesartan [Benicar] Allergy Unknown Unknown Verified 10/09/24 15:45 Penicillins Allergy Unknown HIVES Verified 10/09/24 15:45 Sulfa (Sulfonamide Allergy Unknown HIVES Verified 10/09/24 15:45 Antibiotics) empagliflozin AdvReac Severe Confusion Verified 10/09/24 15:45 [From Jardiance] apixaban [From Eliquis] AdvReac Intermediate Nausea Verified 10/09/24 15:45 hydromorphone [From Dilaudid] AdvReac Shakiness Verified 10/09/24 15:45 odansetron Allergy Severe Hives Uncoded 10/09/24 15:45 Metoprolol Succinate Allergy Intermediate Hives Uncoded 10/09/24 15:45 celcor Allergy Unknown itchy Uncoded 10/09/24 15:45 Gentamicin in Saline Allergy Unknown hives Uncoded 10/09/24 15:45 Gentamicin Sulfate Allergy Unknown hives Uncoded 10/09/24 15:45 Latex Allergy Unknown Itching Uncoded 10/09/24 15:45 latex Allergy Unknown Itching Uncoded 10/09/24 15:45 sulfonamides Allergy Unknown Unknown Uncoded 10/09/24 15:45 vioxx Allergy Unknown Itching Uncoded 10/09/24 15:45 Bicitra AdvReac Unknown unknown Uncoded 10/09/24 15:45 Active Medications: Current Medications Acetaminophen (Acetaminophen 325 Mg Tablet) 975 mg PO Q6H PRN PRN Reason: Pain, Mild 1-3,fever,headache Albuterol Sulfate (Albuterol Sulfate 90 Mcg 8 Gm Inhaler) 2 puff INHALE Q4H PRN PRN Reason: Shortness Of Breath Or Wheezing Amiodarone HCl (Amiodarone Hcl 200 Mg Tablet) 200 mg PO DAILY [facility] Last Admin: 10/21/24 09:55 Dose: 200 mg Buspirone HCl (Buspirone Hcl 5 Mg Tablet) 5 mg PO DAILY [facility] Last Admin: 10/21/24 09:54 Dose: 5 mg Calcium Carbonate (Calcium Carbonate 750 Mg Tab.Chew) 750 mg PO Q4H PRN PRN Reason: Heartburn Last Admin: 10/20/24 15:11 Dose: 750 mg Cyclobenzaprine HCl (Cyclobenzaprine Hcl 5 Mg Tablet) 5 mg PO TID PRN PRN Reason: muscle spasms Dextrose (Dextrose 50 % 25 Gm/50 Ml Syringe) 25 gm IVPUSH Q15M PRN; Protocol PRN Reason: per Hypoglycemia Standing Ord. Docusate Sodium (Docusate Sodium 100 Mg Capsule) 100 mg PO BID [facility] Last Admin: 10/21/24 09:55 Dose: 100 mg Ferrous Sulfate (Ferrous Sulfate 324 Mg Tablet.Dr) 324 mg PO DAILY [facility] Last Admin: 10/21/24 09:55 Dose: 324 mg Fluticasone Propionate (Fluticasone Propionate 250 Mcg Blst.W.Dev) 1 puff INHALE RBID PRN PRN Reason: Shortness Of Breath Or Wheezing Furosemide (Furosemide 20 Mg Tablet) 20 mg PO BID@0900,1800 [facility]; Protocol Last Admin: 10/21/24 09:55 Dose: 20 mg Gabapentin (Gabapentin 300 Mg Capsule) 300 mg PO BID [facility] Last Admin: 10/21/24 09:55 Dose: 300 mg Glucose (Glucose Gel 15 Gm Gel..Gram.) 15 gm PO Q15M PRN; Protocol PRN Reason: per Hypoglycemia Standing Ord. Insulin Human Lispro (Insulin Lispro 100 Unit/Ml 3 Ml Vial) 0 unit SUBCUT QIDACHS [facility]; Protocol Last Admin: 10/21/24 12:54 Dose: Not Given Lactic Acid (Ammonium Lactate 12 % Lotion 226 Gm Bottle) 1 appl TOPICAL DAILY [facility]; Protocol Last Admin: 10/20/24 08:47 Dose: Not Given Lidocaine (Lidocaine 4 % Patch Adh..Patch) 1 patch TRANSDERMA DAILY PRN PRN Reason: Pain Last Admin: 10/10/24 17:33 Dose: 1 patch Lorazepam (Lorazepam 0.5 Mg Tablet) 0.5 mg PO Q8H PRN PRN Reason: Anxiety Last Admin: 10/21/24 00:58 Dose: 0.5 mg Magnesium Citrate (Magnesium Citrate 300 Ml Solution) 300 ml PO DAILY PRN PRN Reason: Constipation Last Admin: 10/16/24 10:41 Dose: 300 ml Magnesium Hydroxide (Milk Of Magnesia 30 Ml Oral.Susp) 30 ml PO DAILY PRN PRN Reason: Constipation Last Admin: 10/15/24 07:34 Dose: 30 ml Melatonin (Melatonin 3 Mg Tablet) 6 mg PO BEDTIME PRN PRN Reason: Insomnia Oxycodone HCl (Oxycodone Hcl Immed Release 5 Mg Tablet) 5 mg PO Q6H PRN PRN Reason: Pain, Severe (Pain Scale 7-10) Last Admin: 10/21/24 02:06 Dose: 5 mg Senna (Sennosides 8.6 Mg Tablet) 8.6 mg PO DAILY [facility] Last Admin: 10/21/24 09:54 Dose: 8.6 mg Sodium Biphosphate/Sodium Phosphate (Sodium Phosphate,Yazoo-Dibasic 133 Ml Enema) 133 ml GA ONCE PRN PRN Reason: Constipation Last Admin: 10/15/24 22:23 Dose: 133 ml Sodium Chloride (0.9 % Sodium Chloride Flush 3 Ml Syringe) 3 ml IVFLUSH QSHIFT [facility] Last Admin: 10/21/24 09:57 Dose: 3 ml Spironolactone (Spironolactone 25 Mg Tablet) 12.5 mg PO DAILY [facility]; Protocol Last Admin: 10/18/24 08:17 Dose: 12.5 mg Warfarin Sodium (Warfarin Sodium 1 Mg Tablet) 1 mg PO DAILY@1800 [facility] Last Admin: 10/20/24 17:10 Dose: 1 mg Home Medications ?Medication ?Instructions ?Recorded ?Confirmed ?Last Taken ?Type sitagliptin phosphate 100 mg 100 mg PO DAILY 11/16/22 10/09/24 06/13/23 History tablet (Januvia) ferrous sulfate 325 mg (65 mg 325 mg PO DAILY 06/14/23 10/09/24 06/13/23 History iron) tablet,delayed release gabapentin 300 mg capsule 300 mg PO TID 06/14/23 10/09/24 06/13/23 History sennosides 8.6 mg tablet (senna) 8.6 mg PO DAILY constipation 06/14/23 10/09/24 06/13/23 History albuterol sulfate 2.5 mg/3 mL 2.5 mg inhalation Q2-4H PRN 07/22/23 10/09/24 Unknown History (0.083 %) solution for nebulization Shortness Of Breath Or Wheezing albuterol sulfate 90 mcg/actuation 2 puff inhalation Q4H PRN 10/09/24 10/09/24 Unknown History aerosol inhaler Shortness Of Breath Or Wheezing amiodarone 200 mg tablet 200 mg PO DAILY 10/09/24 10/09/24 Unknown History amoxicillin 500 mg capsule 500 mg PO TID 10/09/24 10/09/24 Unknown History beclomethasone dipropionate 80 2 inh inhalation BID PRN Shortness 10/09/24 10/09/24 Unknown History mcg/actuation HFA breath activated Of Breath Or Wheezing aerosol (Qvar RediHaler) buspirone 5 mg tablet 1.25 mg PO DAILY 10/09/24 10/09/24 Unknown History cyclobenzaprine 5 mg tablet 5 mg PO TID PRN muscle spasms 10/09/24 10/09/24 Unknown History docusate sodium 100 mg capsule 100 mg PO BID PRN constipation 10/09/24 10/09/24 Unknown History furosemide 20 mg tablet 20 mg PO QID 10/09/24 10/09/24 Unknown History lidocaine 5 % topical patch 1 patch topical DAILY PRN Pain 10/09/24 10/09/24 Unknown History oxycodone 5 mg tablet 5 mg PO Q8H PRN severe pain 10/09/24 10/09/24 Unknown History spironolactone 25 mg tablet 12.5 mg PO DAILY 10/09/24 10/09/24 Unknown History warfarin 1 mg tablet 1 mg PO DAILY 10/09/24 10/09/24 10/08/24 History Physical Exam Vital Signs: Last Vital Signs Temp 97.1 F 10/21/24 11:29 Pulse 78 10/21/24 11:29 Resp 15 10/21/24 11:29 BP 153/84 H 10/21/24 11:29 Pulse Ox 94 10/21/24 11:29 O2 Del Method Room Air 10/21/24 11:29 O2 Flow Rate 2 10/10/24 08:59 BMI result Body Mass Index 28.9 Const General: alert and awake HEENT Head: Yes normocephalic and Yes atraumatic Neck Neck: Yes supple Resp Auscultation: diminished lung sounds Cardio Heart sounds: S1 normal heart sound present and S2 normal heart sound present GI Palpation (GI): Soft to palpation and nontender Extrem General: Yes edema Results Lab Results 10/17/24 13:27 10/21/24 05:15 Lab results: Chemistry 10/19/24 10/20/24 10/21/24 07:26 07:03 05:15 Sodium 135 136 136 Potassium 5.7 H 5.0 5.0 Carbon Dioxide BUN 88 H 86 H 86 H Creatinine 2.09 H 1.95 H 1.88 H Calcium 8.4 8.6 8.3 L Assessment and Plan (1) TORRI (acute kidney injury): Status: Acute (2) Hyperkalemia: Status: Acute (3) HFrEF (heart failure with reduced ejection fraction): Status: Acute (4) Anemia: Status: Acute Plan TORRI due to renal hypoperfusion in the setting of anemia was on HD until recently Permcath dc few weeks ago elevated serum potassium due to compromised distal flow known CKD baseline Scr ~ 1-1.5 mg/dl followed by Dr Miller HFrEF LVEF 25-30% volume status above dry weight REC resume oral furosemide titrate furosemide based on urine output furosemide 20 mg IV x 1 monitor urine output follow kidney function and electrolytes Procedures Date of Service Date of Service: 10/21/24
[2024-10-21 15:34] LABS: Glucose, Whole Blood 122 mg/dL (60-115)
[2024-10-21] MEDS: Furosemide 20 MG/2 ML VIAL IVPUSH (16:28)
[2024-10-21] MEDS: Warfarin Sodium 1 MG TABLET PO (18:36)
[2024-10-21 21:08] LABS: Glucose, Whole Blood 144 mg/dL (60-115)
[2024-10-21] MEDS: busPIRone HCl 5 MG TABLET PO (21:20)
[2024-10-22] VITALS (9 sets, daily range): BP systolic 95–159; BP diastolic 44–86; PULSE 65–112; RESP 16–20; TEMP 36.2–37; O2SAT 92–99
[2024-10-22 06:22] LABS: INTERNATIONAL NORM RATIO 2.9 (0.9-1.1); Prothrombin Time 34.4 SEC (10.9-12.4)
[2024-10-22 07:22] LABS: Glucose, Whole Blood 115 mg/dL (60-115)
--- NOTE | 2024-10-22 07:37 | PM.DS ---
DS: Providers Provider Date of admission: 10/10/24 00:24 Primary care physician: Devi Santoyo MD Consults: 10/10/24 00:23 Consult to Gastroenterology Routine Consulting Provider: Levi Suarez Reason for consultation: GI bleed Has provider been notified: No 10/10/24 00:52 Consult to Cardiology Routine Consulting Provider: [facility] Reason for consultation: supratherapeutic INR, on coumadin, GI bleed Has provider been notified: No 10/10/24 18:29 Consult to Wound Care Routine Reason for consultation: right wrist skin tear, left lower arm skin tear 10/20/24 09:53 Consult to Nephrology Routine Consulting Provider: [facility] Reason for consultation: torri, leg edema Has provider been notified: No DS: Diagnosis Discharge Diagnosis (1) TORRI (acute kidney injury): Status: Acute (2) Hyperkalemia: Status: Acute (3) HFrEF (heart failure with reduced ejection fraction): Status: Acute (4) Anemia: Status: Acute DS: Summary Hospital Course Hospital Course: History and physical as per admitting provider. Patient is a 64-year-old female with a history of asthma, hyperlipidemia,diabetes, mitral stenosis s/p replacement with mechanical valve, systolic heart failure with EF of 25-30 % on echo 07/2023, and persistent AFib, who presented to the ED due to abdominal pain for an unknown period of time as well as back pain and or pain. The patient received any medications for anxiety and pain and has been sleeping in unable to give history. Based off of the ED provider know the patient had a distended abdomen and stated independent away for about a month. She has had associated nausea but no vomiting. She can not recall the last time she had a bowel movement but has been able to pass gas. In addition she felt that her chronic back pain and leg pain has been worse than her baseline. She has had chronic opioid meds. She denied any fever. ED she was found to be critically anemic and guaiac positive. She was transfused with 2 units PRBC. INR was supratherapeutic at 7.6. Initial hemoglobin was 6.5, repeat 8.7, vitamin K was deferred. Acute on chronic HFrEF History of severe LV systolic dysfunction secondary to nonischemic cardiomyopathy, severe aortic stenosis, severe tricuspid regurgitation, pulmonary hypertension She has done poorly with overall medical therapy and there has been concerned about pursuing percutaneous treatment of her aortic as well as tricuspid well pathology although felt that she was too high risk and was not able to be performed at [facility] was referred to [facility] Bilateral pleural effusion/pulmonary edema cardiology following-resume po lasix Continue Aldactone Acute on chronic anemia no evidence of acute blood loss s/p 3U Prbc. H/H stable Avoid vitamin K to avoid risk of thrombotic complications due to mechanical mitral valve Seen by GI- Due to complicated cardiac history, recommend conservative management, transfuse as needed to keep hematocrit above 30; if develops active bleeding, would need transfer to tertiary care facility Abdominal pain. Patient had some complaints of abdominal pain secondary to constipation that was seen on abdominal imaging. She was treated with senna, Colace, fleets enema, magnesium citrate with good result. Patient has been having bowel movements. Being on narcotic medication is important that she continue a good bowel regimen at home. Supratherapeutic INR. During hospitalization INR was up and down, peaked at 7.6. INR today 2.9 on warfarin 1 mg daily. Check INR as per prior to admission Hyperkalemia. Had some episodes of hypokalemia likely secondary to Lasix and Aldactone. She was given Lokelma and hyperkalemia resolved. TORRI on ckd3. Secondary to IV diuretics. No IV fluids given due to fragile state of heart failure. Therefore diuretics were held and restarted once kidney function was better. Patient may continue her home dose of Lasix as it previously was. Mild persistent asthma, no acute exacerbation. Continue baseline medications Type 2 diabetes. Continue home medications Persistent AFib. Rate controlled. Continue amiodarone and warfarin Chronic back pain. May use heat and ice, continue gabapentin, oxycodone as needed. May also use [id number] lidocaine patches Physical Exam Vital Signs: Vital Signs: Last Vital Signs Temp 98.4 F 10/22/24 07:26 Pulse 88 10/22/24 07:26 Resp 20 10/22/24 07:26 BP 149/67 H 10/22/24 07:26 Pulse Ox 94 10/22/24 07:26 O2 Del Method Room Air 10/22/24 07:26 O2 Flow Rate 2 10/10/24 08:59 BMI result Body Mass Index 28.9 Appearing in no acute distress head is normocephalic atraumatic eyes pupils are PERRLA sclera is anicteric mouth throat mucous membranes are intact and moist neck is supple no lymphadenopathy, no JVD noted lung sounds are clear to auscultation heart regular rate rhythm, clear S1, S2 positive bowel sounds, abdomen is soft, nontender neuro patient is alert x3, no focal deficits DS: Data Data Completed and Pending Completed studies during hospitalization [Text1]: Procedures Transfusion of Nonautologous Red Blood Cells into Peripheral Vein, Percutaneous Approach (07/22/23) Labs on day of discharge: Laboratory Results - last 24 hr 10/21/24 10/21/24 10/21/24 11:19 15:30 21:02 PT INR POC Glucose 131 H 122 H 144 H 10/22/24 10/22/24 05:18 07:11 PT 34.4 H INR 2.9 H POC Glucose 115 Discharge Plan Discharge Anticipated Discharge Date/Time: 10/22/24 07:33 Patient Disposition: Home Health Service Discharge Diagnosis: TORRI on CKD stage 3 Supratherapeutic INR Acute on chronic heart failure with reduced ejection fraction Hyperkalemia Abdominal pain Acute on chronic anemia Prolonged QTC Mild persistent asthma Acute on chronic back pain Referrals: Laurie Adrian [Outside] - 1 Day (RESUMPTION OF WEEKLY INR AND NEW HOME PHYSICAL THERAPY) Devi Benavides MD [Primary Care Provider] - 1 Week Discharge Medications: Continued gabapentin 300 mg capsule 300 mg PO TID sennosides [senna] 8.6 mg tablet 8.6 mg PO DAILY ferrous sulfate 325 mg (65 mg iron) tablet,delayed release (DR/EC) 325 mg PO DAILY buspirone 5 mg tablet 1.25 mg PO DAILY amiodarone 200 mg tablet 200 mg PO DAILY spironolactone 25 mg tablet 12.5 mg PO DAILY lidocaine 5 % adhesive patch,medicated 1 patch topical DAILY PRN (Reason: Pain) docusate sodium 100 mg capsule 100 mg PO BID PRN (Reason: constipation) furosemide 20 mg tablet 20 mg PO QID warfarin 1 mg tablet 1 mg PO DAILY albuterol sulfate 90 mcg/actuation HFA aerosol inhaler 2 puff inhalation Q4H PRN (Reason: Shortness Of Breath Or Wheezing) oxycodone 5 mg tablet 5 mg PO Q8H PRN (Reason: severe pain) cyclobenzaprine 5 mg tablet 5 mg PO TID PRN (Reason: muscle spasms) Qvar RediHaler 80 mcg/actuation HFA aerosol breath activated 2 inh INHALATION BID PRN (Reason: Shortness Of Breath Or Wheezing) albuterol sulfate 2.5 mg /3 mL (0.083 %) solution for nebulization 2.5 mg inhalation Q2-4H PRN (Reason: Shortness Of Breath Or Wheezing) Januvia 100 mg tablet 100 mg PO DAILY Discontinued amoxicillin 500 mg capsule 500 mg PO TID Diet: Advance to usual diet Activity on Discharge: As tolerated Stand Alone Forms: Patient Portal Discharge page Print Language: [place]ien [facility] Concerns: TORRI on CKD stage 3 Supratherapeutic INR Acute on chronic heart failure with reduced ejection fraction Hyperkalemia Constipation Acute on chronic anemia Prolonged QTC Mild persistent asthma Acute on chronic back pain Plan of Treatment: Follow-up with primary care provider as needed Take all medications as prescribed Assessment: See discharge summary
[2024-10-22] MEDS: Amiodarone HCL 200 MG TABLET PO (09:12)
[2024-10-22] MEDS: Ammonium Lactate 12 % Lotion 226 GM BOTTLE 1 APPL TOPICAL (09:12)
[2024-10-22] MEDS: Ferrous Sulfate 324 MG TABLET.DR PO (09:12)
[2024-10-22] MEDS: Sennosides 8.6 MG TABLET PO (09:13)
[2024-10-22] MEDS: Docusate Sodium 100 MG CAPSULE PO ×2 (09:13→20:47)
[2024-10-22] MEDS: Furosemide 20 MG TABLET PO ×2 (09:13→17:42)
[2024-10-22] MEDS: Gabapentin 300 MG CAPSULE PO ×2 (09:13→20:46)
[2024-10-22] MEDS: busPIRone HCl 5 MG TABLET PO ×2 (09:14→20:47)
[2024-10-22 09:44] LABS: Hematocrit 22.8 % (37.0-47.0); Hemoglobin 7.2 g/dl (12.0-16.0); Mean Corpuscular HGB Conc 31.6 g/dl (31.0-35.0); Mean Corpuscular Hemoglobin 30.6 pg (27.0-33.0); Mean Platelet Volume 8.9 fL (9.4-12.3); Platelet Count 202 X10*3/uL (160-400); Red Blood Count 2.35 X10*6/uL (4.20-5.50); Red Cell Distribution Width 17.1 % (11.0-16.0); White Blood Count 6.2 X10*3/uL (4.8-10.8)
[2024-10-22 09:51] LABS: VBG Base Excess 7.3 mmol/L; VBG HCO3 30 mmol/L (22-26); VBG pCO2 36 mmHg; VBG pH 7.53 (7.32-7.43); VBG pO2 47 mmHg
[2024-10-22 09:52] LABS: Venous Blood Gas Refer to POC result
[2024-10-22 10:01] LABS: Anion Gap 11 (12-20); Blood Urea Nitrogen 85 mg/dL (9-16); Calcium 8.3 mg/dL (8.4-10.2); Carbon Dioxide 27 mmol/L (22-29); Chloride 104 mmol/L (96-108); Creatinine Clr Calc Pharmacy 30.3; Estimated Glomerular Filt Rate 29; Glucose Random 131 mg/dL (60-115); Sodium 137 mmol/L (135-145)
[2024-10-22 11:06] LABS: Glucose, Whole Blood 130 mg/dL (60-115)
[2024-10-22] MEDS: Milk of Magnesia 30 ML ORAL.SUSP PO (11:38)
[2024-10-22] MEDS: Magnesium Citrate 300 ML SOLUTION PO (11:40)
[2024-10-22] MEDS: oxyCODONE HCl Immed Release 5 MG TABLET PO ×2 (11:46→20:46)
--- NOTE | 2024-10-22 14:25 | P.PNIM_ITS ---
Subjective Subjective Date of Service: 10/22/24 Interval History: seen and examined this morning follow up for chf, anemia, torri, hyperkalemia patient feels better today but has back pain Review of Systems Review of Systems: Yes all other systems are reviewed and are negative Constitutional Constitutional: Denies chills and Denies fever(s) ENT Ears, Nose, Mouth, and Throat: Denies dizziness Cardiovascular Cardiovascular: Denies chest pain, Denies palpitations and Denies dyspnea Respiratory Respiratory: Denies cough and Denies dyspnea Gastrointestinal Gastrointestinal: Denies abdominal pain, Denies diarrhea, Denies nausea and Denies vomiting Neurologic Neurologic: Denies dizziness Endocrine Endocrine: Denies palpitations Physical Exam 2 Vital Signs: Vital Signs: Last Vital Signs Temp 98.6 F 10/22/24 11:13 Pulse 85 10/22/24 11:13 Resp 20 10/22/24 11:13 BP 121/57 L 10/22/24 11:13 Pulse Ox 93 10/22/24 11:13 O2 Del Method Room Air 10/22/24 11:13 O2 Flow Rate 2 10/10/24 08:59 BMI result Body Mass Index 28.9 Appearing in no acute distress lung sounds are clear to auscultation heart regular rate rhythm, clear S1, S2 positive bowel sounds, abdomen is soft, nontender neuro patient is alert x3, no focal deficits Objective Data Active Medications Acetaminophen (Acetaminophen 325 Mg Tablet) 975 mg PO Q6H PRN PRN Reason: Pain, Mild 1-3,fever,headache Albuterol Sulfate (Albuterol Sulfate 90 Mcg 8 Gm Inhaler) 2 puff INHALE Q4H PRN PRN Reason: Shortness Of Breath Or Wheezing Amiodarone HCl (Amiodarone Hcl 200 Mg Tablet) 200 mg PO DAILY [facility] Last Admin: 10/22/24 09:12 Dose: 200 mg Documented By: ELA Buspirone HCl (Buspirone Hcl 5 Mg Tablet) 5 mg PO BID [facility] Last Admin: 10/22/24 09:14 Dose: 5 mg Documented By: ELA Calcium Carbonate (Calcium Carbonate 750 Mg Tab.Chew) 750 mg PO Q4H PRN PRN Reason: Heartburn Last Admin: 10/20/24 15:11 Dose: 750 mg Documented By: TERESA Cyclobenzaprine HCl (Cyclobenzaprine Hcl 5 Mg Tablet) 5 mg PO TID PRN PRN Reason: muscle spasms Dextrose (Dextrose 50 % 25 Gm/50 Ml Syringe) 25 gm IVPUSH Q15M PRN; Protocol PRN Reason: per Hypoglycemia Standing Ord. Docusate Sodium (Docusate Sodium 100 Mg Capsule) 100 mg PO BID [facility] Last Admin: 10/22/24 09:13 Dose: 100 mg Documented By: ELA Ferrous Sulfate (Ferrous Sulfate 324 Mg Tablet.Dr) 324 mg PO DAILY [facility] Last Admin: 10/22/24 09:12 Dose: 324 mg Documented By: ELA Fluticasone Propionate (Fluticasone Propionate 250 Mcg Blst.W.Dev) 1 puff INHALE RBID PRN PRN Reason: Shortness Of Breath Or Wheezing Furosemide (Furosemide 20 Mg Tablet) 20 mg PO BID@0900,1800 [facility]; Protocol Last Admin: 10/22/24 09:13 Dose: 20 mg Documented By: ELA Gabapentin (Gabapentin 300 Mg Capsule) 300 mg PO BID [facility] Last Admin: 10/22/24 09:13 Dose: 300 mg Documented By: ELA Glucose (Glucose Gel 15 Gm Gel..Gram.) 15 gm PO Q15M PRN; Protocol PRN Reason: per Hypoglycemia Standing Ord. Insulin Human Lispro (Insulin Lispro 100 Unit/Ml 3 Ml Vial) 0 unit SUBCUT QIDACHS [facility]; Protocol Last Admin: 10/22/24 11:07 Dose: Not Given Documented By: ELA Non-Admin Reason: No Insulin Coverage Lactic Acid (Ammonium Lactate 12 % Lotion 226 Gm Bottle) 1 appl TOPICAL DAILY [facility]; Protocol Last Admin: 10/22/24 09:12 Dose: 1 appl Documented By: ELA Lidocaine (Lidocaine 4 % Patch Adh..Patch) 1 patch TRANSDERMA DAILY PRN PRN Reason: Pain Last Admin: 10/10/24 17:33 Dose: 1 patch Documented By: SYDNIE Lorazepam (Lorazepam 0.5 Mg Tablet) 0.5 mg PO Q8H PRN PRN Reason: Anxiety Last Admin: 10/21/24 22:38 Dose: 0.5 mg Documented By: ANTOINC Magnesium Citrate (Magnesium Citrate 300 Ml Solution) 300 ml PO DAILY PRN PRN Reason: Constipation Last Admin: 10/16/24 10:41 Dose: 300 ml Magnesium Hydroxide (Milk Of Magnesia 30 Ml Oral.Susp) 30 ml PO DAILY PRN PRN Reason: Constipation Last Admin: 10/22/24 11:38 Dose: 30 ml Documented By: ELA Melatonin (Melatonin 3 Mg Tablet) 6 mg PO BEDTIME PRN PRN Reason: Insomnia Oxycodone HCl (Oxycodone Hcl Immed Release 5 Mg Tablet) 5 mg PO Q6H PRN PRN Reason: Pain, Severe (Pain Scale 7-10) Last Admin: 10/22/24 11:46 Dose: 5 mg Documented By: ELA Senna (Sennosides 8.6 Mg Tablet) 8.6 mg PO DAILY [facility] Last Admin: 10/22/24 09:13 Dose: 8.6 mg Documented By: ELA Sodium Biphosphate/Sodium Phosphate (Sodium Phosphate,[place]-Dibasic 133 Ml Enema) 133 ml [place] ONCE PRN PRN Reason: Constipation Sodium Chloride (0.9 % Sodium Chloride Flush 3 Ml Syringe) 3 ml IVFLUSH QSHIFT [facility] Last Admin: 10/22/24 09:14 Dose: Not Given Documented By: ELA Non-Admin Reason: Previously Administered Spironolactone (Spironolactone 25 Mg Tablet) 12.5 mg PO DAILY [facility]; Protocol Last Admin: 10/18/24 08:17 Dose: 12.5 mg Documented By: RADHA Warfarin Sodium (Warfarin Sodium 1 Mg Tablet) 1 mg PO DAILY@1800 [facility] Last Admin: 10/21/24 18:36 Dose: 1 mg Documented By: HUMBLE Labs 10/22/24 09:35 10/22/24 09:35 Labs: Laboratory Results - last 24 hr 10/21/24 10/21/24 10/22/24 15:30 21:02 05:18 MCV MCH MCHC RDW Plt Count MPV Absolute Nucleated RBC Nucleated RBC % (auto) PT 34.4 H INR 2.9 H VBG pH VBG pCO2 VBG pO2 VBG HCO3 VBG O2 Saturation VBG Base Excess Anion Gap Estim Creat Clear Calc Estimated GFR POC Glucose 122 H 144 H Random Glucose Calcium 10/22/24 10/22/24 10/22/24 07:11 09:35 09:42 MCV 97.0 MCH 30.6 MCHC 31.6 RDW 17.1 H Plt Count 202 MPV 8.9 L Absolute Nucleated RBC 0.000 Nucleated RBC % (auto) 0.0 PT INR VBG pH 7.53 H VBG pCO2 36 VBG pO2 47 VBG HCO3 30 H VBG O2 Saturation TNP VBG Base Excess 7.3 Anion Gap 11 L Estim Creat Clear Calc 30.3 Estimated GFR 29 POC Glucose 115 Random Glucose 131 H Calcium 8.3 L 10/22/24 11:01 MCV MCH MCHC RDW Plt Count MPV Absolute Nucleated RBC Nucleated RBC % (auto) PT INR VBG pH VBG pCO2 VBG pO2 VBG HCO3 VBG O2 Saturation VBG Base Excess Anion Gap Estim Creat Clear Calc Estimated GFR POC Glucose 130 H Random Glucose Calcium Assessment and Plan (1) TORRI (acute kidney injury): Status: Acute (2) Hyperkalemia: Status: Acute (3) Decompensated heart failure: Status: Acute Plan 64-year-old female with a history of asthma, hyperlipidemia,diabetes, mitral stenosis s/p replacement with mechanical valve, systolic heart failure with EF of 25-30 % on echo 07/2023, and persistent AFib, who presented to the ED due to abdominal pain for an unknown period of time as well as back pain. In the ED she was found to be critically anemic and guaiac positive. She was transfused with 2 units PRBC. INR was supratherapeutic at 7.6. Initial hemoglobin was 6.5, repeat 8.7, vitamin K was deferred. Abdominal pain. Secondary to constipation on KUB Senna, Colace, mag citrate and fleets enema having BMs Right leg pain doppler us to r/o DVT TORRI on ckd3 creatinine 1.76 today po lasix due to increasing leg edema nephro consult Supratherapeutic INR INR 2.9 continue home dose of coumadin follow INR Acute on chronic HFrEF History of severe LV systolic dysfunction secondary to nonischemic cardiomyopathy, severe aortic stenosis, severe tricuspid regurgitation, pulmonary hypertension She has done poorly with overall medical therapy and there has been concerned about pursuing percutaneous treatment of her aortic as well as tricuspid well pathology although felt that she was too high risk and was not able to be performed at [facility] was referred to [place] Bilateral pleural effusion/pulmonary edema cardiology following-initially treated with IV lasix, which patient insisted on continuing but then resumed po lasix. lasix/aldactone placed on hold 10/18 for torri due to increasing leg edema resumed po lasix at lower dose palliative care has been recommended, discussed with pt and daughter Hyperkalemia resolved with lokelma aldactone on hold follow bmp Acute on chronic anemia no evidence of acute blood loss s/p 3U Prbc. H/H stable Avoid vitamin K to avoid risk of thrombotic complications due to mechanical mitral valve Seen by GI- Due to complicated cardiac history, recommend conservative management, transfuse as needed to keep hematocrit above 30; if develops active bleeding, would need transfer to tertiary care facility Prolonged QTC Okay to continue amiodarone per Cardiology electrolytes normal avoid QT prolonging agents Mild persistent asthma, no acute exacerbation Continue baseline meds Type 2 diabetes Hold Januvia sliding scale insulin Persistent AFib EKG with AFib, rate controlled continue amiodarone, coumadin Chronic back pain continue lidocaine patch gabapentin continue oxycodone Full code VTE prophylaxis, Coumadin on hold dispo: home with services when medically ready, will need close INR monitoring Quality Stroke Does the patient have a stroke diagnosis?: No VTE Prior VTE?: No VTE Risk Level:: Medical - moderate - high VTE Device Contraindication: N/A - Device Ordered VTE Drug Contraindication: Treatment Not Indicated
[2024-10-22 16:26] LABS: Glucose, Whole Blood 133 mg/dL (60-115)
[2024-10-22] MEDS: Warfarin Sodium 1 MG TABLET PO (17:42)
[2024-10-22 20:41] LABS: Glucose, Whole Blood 142 mg/dL (60-115)
[2024-10-22] MEDS: 0.9 % Sodium Chloride Flush 3 ML SYRINGE IVFLUSH (22:41)
[2024-10-23] VITALS (9 sets, daily range): BP systolic 119–142; BP diastolic 58–74; PULSE 73–91; RESP 12–20; TEMP 35.8–37.4; O2SAT 93–100
[2024-10-23] MEDS: oxyCODONE HCl Immed Release 5 MG TABLET PO ×3 (05:35→17:20)
[2024-10-23 06:57] LABS: Hematocrit 23.7 % (37.0-47.0); Hemoglobin 7.5 g/dl (12.0-16.0); Mean Corpuscular HGB Conc 31.6 g/dl (31.0-35.0); Mean Corpuscular Volume 97.9 fL (80.0-98.0); Mean Platelet Volume 8.8 fL (9.4-12.3); Platelet Count 200 X10*3/uL (160-400); Red Blood Count 2.42 X10*6/uL (4.20-5.50); Red Cell Distribution Width 17.2 % (11.0-16.0); White Blood Count 5.9 X10*3/uL (4.8-10.8)
[2024-10-23 07:01] LABS: INTERNATIONAL NORM RATIO 3.1 (0.9-1.1); Prothrombin Time 36.6 SEC (10.9-12.4)
[2024-10-23 07:16] LABS: Anion Gap 13 (12-20); Blood Urea Nitrogen 76 mg/dL (9-16); Calcium 8.3 mg/dL (8.4-10.2); Carbon Dioxide 28 mmol/L (22-29); Chloride 101 mmol/L (96-108); Creatinine Clr Calc Pharmacy 31.1; Estimated Glomerular Filt Rate 30; Glucose Random 141 mg/dL (60-115); Potassium 4.6 mmol/L (3.3-5.1); Sodium 137 mmol/L (135-145)
[2024-10-23] MEDS: Amiodarone HCL 200 MG TABLET PO (07:54)
[2024-10-23] MEDS: busPIRone HCl 5 MG TABLET PO ×2 (07:54→21:07)
[2024-10-23] MEDS: Gabapentin 300 MG CAPSULE PO ×2 (07:54→21:07)
[2024-10-23 07:55] LABS: Glucose, Whole Blood 133 mg/dL (60-115)
[2024-10-23] MEDS: 0.9 % Sodium Chloride Flush 3 ML SYRINGE IVFLUSH ×3 (07:59→21:08)
[2024-10-23] MEDS: Ferrous Sulfate 324 MG TABLET.DR PO (08:01)
[2024-10-23] MEDS: Furosemide 20 MG TABLET PO ×2 (08:01→17:16)
--- NOTE | 2024-10-23 10:58 | HO.PM.IMPN ---
Subjective Subjective Date of Service: 10/23/24 Interval History: seen and examined this morning follow up for chf, anemia, torri, hyperkalemia patient with loose stool today from mag citrate Feeling tired, unable to sleep last night Review of Systems Review of Systems: Yes all other systems are reviewed and are negative Constitutional Constitutional: Denies chills and Denies fever(s) ENT Ears, Nose, Mouth, and Throat: Denies dizziness Cardiovascular Cardiovascular: Denies chest pain, Denies palpitations and Denies dyspnea Respiratory Respiratory: Denies cough and Denies dyspnea Gastrointestinal Gastrointestinal: Denies abdominal pain, Denies diarrhea, Denies nausea and Denies vomiting Neurologic Neurologic: Denies dizziness Endocrine Endocrine: Denies palpitations Physical Exam Vital Signs: Vital Signs: Last Vital Signs Temp 97.8 F 10/23/24 07:23 Pulse 86 10/23/24 07:23 Resp 18 10/23/24 07:23 BP 125/74 10/23/24 07:23 Pulse Ox 100 10/23/24 07:23 O2 Del Method Room Air 10/23/24 07:23 O2 Flow Rate 2 10/10/24 08:59 BMI result Body Mass Index 28.9 Appearing in no acute distress lung sounds are clear to auscultation heart regular rate rhythm, clear S1, S2 positive bowel sounds, abdomen is soft, nontender neuro patient is alert x3, no focal deficits Chronic LE edema and chronic skin changes Objective Data Active Medications Acetaminophen (Acetaminophen 325 Mg Tablet) 975 mg PO Q6H PRN PRN Reason: Pain, Mild 1-3,fever,headache Albuterol Sulfate (Albuterol Sulfate 90 Mcg 8 Gm Inhaler) 2 puff INHALE Q4H PRN PRN Reason: Shortness Of Breath Or Wheezing Amiodarone HCl (Amiodarone Hcl 200 Mg Tablet) 200 mg PO DAILY [facility] Last Admin: 10/23/24 07:54 Dose: 200 mg Documented By: LEIGHTON Buspirone HCl (Buspirone Hcl 5 Mg Tablet) 5 mg PO BID [facility] Last Admin: 10/23/24 07:54 Dose: 5 mg Documented By: LEIGHTON Calcium Carbonate (Calcium Carbonate 750 Mg Tab.Chew) 750 mg PO Q4H PRN PRN Reason: Heartburn Last Admin: 10/20/24 15:11 Dose: 750 mg Documented By: TERESA Cyclobenzaprine HCl (Cyclobenzaprine Hcl 5 Mg Tablet) 5 mg PO TID PRN PRN Reason: muscle spasms Dextrose (Dextrose 50 % 25 Gm/50 Ml Syringe) 25 gm IVPUSH Q15M PRN; Protocol PRN Reason: per Hypoglycemia Standing Ord. Docusate Sodium (Docusate Sodium 100 Mg Capsule) 100 mg PO BID [facility] Last Admin: 10/23/24 07:56 Dose: Not Given Documented By: LEIGHTON Non-Admin Reason: Patient Refused Ferrous Sulfate (Ferrous Sulfate 324 Mg Tablet.Dr) 324 mg PO DAILY [facility] Last Admin: 10/23/24 08:01 Dose: 324 mg Documented By: LEIGHTON Fluticasone Propionate (Fluticasone Propionate 250 Mcg Blst.W.Dev) 1 puff INHALE RBID PRN PRN Reason: Shortness Of Breath Or Wheezing Furosemide (Furosemide 20 Mg Tablet) 20 mg PO BID@0900,1800 [facility]; Protocol Last Admin: 10/23/24 08:01 Dose: 20 mg Documented By: LEIGHTON Gabapentin (Gabapentin 300 Mg Capsule) 300 mg PO BID [facility] Last Admin: 10/23/24 07:54 Dose: 300 mg Documented By: LEIGHTON Glucose (Glucose Gel 15 Gm Gel..Gram.) 15 gm PO Q15M PRN; Protocol PRN Reason: per Hypoglycemia Standing Ord. Insulin Human Lispro (Insulin Lispro 100 Unit/Ml 3 Ml Vial) 0 unit SUBCUT QIDACHS [facility]; Protocol Last Admin: 10/23/24 09:14 Dose: Not Given Documented By: LEIGHTON Non-Admin Reason: No Insulin Coverage Lactic Acid (Ammonium Lactate 12 % Lotion 226 Gm Bottle) 1 appl TOPICAL DAILY [facility]; Protocol Last Admin: 10/22/24 09:12 Dose: 1 appl Documented By: ELA Lidocaine (Lidocaine 4 % Patch Adh..Patch) 1 patch TRANSDERMA DAILY PRN PRN Reason: Pain Last Admin: 10/10/24 17:33 Dose: 1 patch Documented By: SYDNIE Lorazepam (Lorazepam 0.5 Mg Tablet) 0.5 mg PO Q8H PRN PRN Reason: Anxiety Last Admin: 10/21/24 22:38 Dose: 0.5 mg Documented By: ANTOINC Magnesium Citrate (Magnesium Citrate 300 Ml Solution) 300 ml PO DAILY PRN PRN Reason: Constipation Last Admin: 10/16/24 10:41 Dose: 300 ml Magnesium Hydroxide (Milk Of Magnesia 30 Ml Oral.Susp) 30 ml PO DAILY PRN PRN Reason: Constipation Last Admin: 10/22/24 11:38 Dose: 30 ml Documented By: ELA Melatonin (Melatonin 3 Mg Tablet) 6 mg PO BEDTIME PRN PRN Reason: Insomnia Oxycodone HCl (Oxycodone Hcl Immed Release 5 Mg Tablet) 5 mg PO Q6H PRN PRN Reason: Pain, Severe (Pain Scale 7-10) Last Admin: 10/23/24 05:35 Dose: 5 mg Documented By: JHOANA Senna (Sennosides 8.6 Mg Tablet) 8.6 mg PO DAILY [facility] Last Admin: 10/23/24 07:56 Dose: Not Given Documented By: LEIGHTON Non-Admin Reason: Patient Refused Sodium Biphosphate/Sodium Phosphate (Sodium Phosphate,[place]-Dibasic 133 Ml Enema) 133 ml [place] ONCE PRN PRN Reason: Constipation Sodium Chloride (0.9 % Sodium Chloride Flush 3 Ml Syringe) 3 ml IVFLUSH QSHIFT [facility] Last Admin: 10/23/24 07:59 Dose: 3 ml Documented By: LEIGHTON Spironolactone (Spironolactone 25 Mg Tablet) 12.5 mg PO DAILY [facility]; Protocol Last Admin: 10/18/24 08:17 Dose: 12.5 mg Documented By: RADHA Warfarin Sodium (Warfarin Sodium 1 Mg Tablet) 1 mg PO DAILY@1800 [facility] Last Admin: 10/22/24 17:42 Dose: 1 mg Documented By: ELA Labs 10/23/24 06:42 10/23/24 06:42 Labs: Laboratory Results - last 24 hr 10/22/24 10/22/24 10/22/24 11:01 16:20 20:37 MCV MCH MCHC RDW Plt Count MPV Absolute Nucleated RBC Nucleated RBC % (auto) PT INR Anion Gap Estim Creat Clear Calc Estimated GFR POC Glucose 130 H 133 H 142 H Random Glucose Calcium Blood Type Antibody Screen Crossmatch 10/23/24 10/23/24 10/23/24 06:42 07:21 08:14 MCV 97.9 MCH 31.0 MCHC 31.6 RDW 17.2 H Plt Count 200 MPV 8.8 L Absolute Nucleated RBC 0.000 Nucleated RBC % (auto) 0.0 PT 36.6 H INR 3.1 H Anion Gap 13 Estim Creat Clear Calc 31.1 Estimated GFR 30 POC Glucose 133 H Random Glucose 141 H Calcium 8.3 L Blood Type O Positive Antibody Screen NEGATIVE Crossmatch See Detail Assessment and Plan (1) TORRI (acute kidney injury): Status: Acute (2) Hyperkalemia: Status: Acute (3) Decompensated heart failure: Status: Acute Plan 64-year-old female with a history of asthma, hyperlipidemia,diabetes, mitral stenosis s/p replacement with mechanical valve, systolic heart failure with EF of 25-30 % on echo 07/2023, and persistent AFib, who presented to the ED due to abdominal pain for an unknown period of time as well as back pain. In the ED she was found to be critically anemic and guaiac positive. She was transfused with 2 units PRBC. INR was supratherapeutic at 7.6. Initial hemoglobin was 6.5, repeat 8.7, vitamin K was deferred. Abdominal pain. Resolved Secondary to constipation on KUB Senna, Colace, mag citrate and fleets enema having loose BMs Right leg pain doppler us to r/o DVT negative likely chronic TORRI on ckd3. Resolved creatinine 1.71 today po lasix due to increasing leg edema nephro consult Supratherapeutic INR. Resolved INR 3.1 continue home dose of coumadin follow INR Acute on chronic HFrEF History of severe LV systolic dysfunction secondary to nonischemic cardiomyopathy, severe aortic stenosis, severe tricuspid regurgitation, pulmonary hypertension She has done poorly with overall medical therapy and there has been concerned about pursuing percutaneous treatment of her aortic as well as tricuspid well pathology although felt that she was too high risk and was not able to be performed at [facility] was referred to [place] Bilateral pleural effusion/pulmonary edema cardiology following-initially treated with IV lasix, which patient insisted on continuing but then resumed po lasix. lasix/aldactone placed on hold 10/18 for torri due to increasing leg edema resumed po lasix at lower dose palliative care has been recommended Hyperkalemia resolved with lokelma aldactone on hold follow bmp Acute on chronic anemia no evidence of acute blood loss s/p 3U Prbc. H/H stable Avoid vitamin K to avoid risk of thrombotic complications due to mechanical mitral valve Seen by GI- Due to complicated cardiac history, recommend conservative management, transfuse as needed to keep hematocrit above 30; if develops active bleeding, would need transfer to tertiary care facility Hematocrit >30, 1 units prbc ordered Prolonged QTC Okay to continue amiodarone per Cardiology electrolytes normal avoid QT prolonging agents Mild persistent asthma, no acute exacerbation Continue baseline meds Type 2 diabetes Hold Januvia sliding scale insulin Persistent AFib EKG with AFib, rate controlled continue amiodarone, coumadin Chronic back pain continue lidocaine patch gabapentin continue oxycodone Full code VTE prophylaxis, Coumadin dispo: home with services when medically ready, will need close INR monitoring Quality Stroke Does the patient have a stroke diagnosis?: No VTE Prior VTE?: No VTE Risk Level:: Medical - moderate - high VTE Device Contraindication: N/A - Device Ordered VTE Drug Contraindication: Treatment Not Indicated
--- NOTE | 2024-10-23 11:00 | MHC.CM.PN ---
EMR REVIEWED, IMM 10/23/24 DELIVERED TO BEDSIDE, PT AWARE SHE HAS UNTIL MIDNIGHT TONIGHT TO APPEAL AND HOSPITAL PANS TO DC TOMORROW BY 12PM, PT REPORTS SHE DOES NOT WANT TO APPEAL AND SHE WANTS TO DC TOMORROW W/[facility] FOR SN, CM WILL CONT TO FOLLOW DC NEEDS.
--- NOTE | 2024-10-23 11:05 | P.DS_ITS ---
DS: Providers Provider Date of admission: 10/10/24 00:24 Primary care physician: Devi Santoyo MD Consults: 10/10/24 00:23 Consult to Gastroenterology Routine Consulting Provider: Levi Suarez Reason for consultation: GI bleed Has provider been notified: No 10/10/24 00:52 Consult to Cardiology Routine Consulting Provider: [facility] Reason for consultation: supratherapeutic INR, on coumadin, GI bleed Has provider been notified: No 10/10/24 18:29 Consult to Wound Care Routine Reason for consultation: right wrist skin tear, left lower arm skin tear 10/20/24 09:53 Consult to Nephrology Routine Consulting Provider: [facility] Reason for consultation: torri, leg edema Has provider been notified: No DS: Diagnosis Discharge Diagnosis (1) TORRI (acute kidney injury): Status: Acute (2) Hyperkalemia: Status: Acute (3) Decompensated heart failure: Status: Acute DS: Summary Hospital Course Hospital Course: History and physical as per admitting provider. Patient is a 64-year-old female with a history of asthma, hyperlipidemia,diabetes, mitral stenosis s/p replacement with mechanical valve, systolic heart failure with EF of 25-30 % on echo 07/2023, and persistent AFib, who presented to the ED due to abdominal pain for an unknown period of time as well as back pain and or pain. The patient received any medications for anxiety and pain and has been sleeping in unable to give history. Based off of the ED provider know the patient had a distended abdomen and stated independent away for about a month. She has had associated nausea but no vomiting. She can not recall the last time she had a bowel movement but has been able to pass gas. In addition she felt that her chronic back pain and leg pain has been worse than her baseline. She has had chronic opioid meds. She denied any fever. ED she was found to be critically anemic and guaiac positive. She was transfused with 2 units PRBC. INR was supratherapeutic at 7.6. Initial hemoglobin was 6.5, repeat 8.7, vitamin K was deferred. Acute on chronic HFrEF History of severe LV systolic dysfunction secondary to nonischemic cardiomyopathy, severe aortic stenosis, severe tricuspid regurgitation, pulmonary hypertension She has done poorly with overall medical therapy and there has been concerned about pursuing percutaneous treatment of her aortic as well as tricuspid well pathology although felt that she was too high risk and was not able to be performed at [facility] was referred to [place] Bilateral pleural effusion/pulmonary edema treated with IV and po lasix during hospital stay Continue Aldactone and po lasix Acute on chronic anemia no evidence of acute blood loss s/p 4 Prbc. H/H stable Avoid vitamin K to avoid risk of thrombotic complications due to mechanical mitral valve Seen by GI- Due to complicated cardiac history, recommend conservative management, transfuse as needed to keep hematocrit above 30 Abdominal pain. Patient had some complaints of abdominal pain secondary to constipation that was seen on abdominal imaging. She was treated with senna, Colace, fleets enema, magnesium citrate with good result. Patient has been having bowel movements. Being on narcotic medication is important that she continue a good bowel regimen at home. Supratherapeutic INR. During hospitalization INR was up and down, peaked at 7.6, on warfarin 1 mg daily. Hyperkalemia. Had some episodes of hypokalemia likely secondary to Lasix and Aldactone. She was given Lokelma and hyperkalemia resolved. TORRI on ckd3. Secondary to IV diuretics. No IV fluids given due to fragile state of heart failure. Therefore diuretics were held and restarted once kidney function was better. Patient may continue her home dose of Lasix as it previously was. Mild persistent asthma, no acute exacerbation. Continue baseline medications Type 2 diabetes. Continue home medications Persistent AFib. Rate controlled. Continue amiodarone and warfarin Chronic back pain. May use heat and ice, continue gabapentin, oxycodone as needed. May also use [id number] lidocaine patches Physical Exam Vital Signs: Vital Signs: Last Vital Signs Temp 97.8 F 10/23/24 07:23 Pulse 86 10/23/24 07:23 Resp 18 10/23/24 07:23 BP 125/74 10/23/24 07:23 Pulse Ox 100 10/23/24 07:23 O2 Del Method Room Air 10/23/24 07:23 O2 Flow Rate 2 10/10/24 08:59 BMI result Body Mass Index 28.9 DS: Data Data Completed and Pending Completed studies during hospitalization [Text1]: Procedures Transfusion of Nonautologous Red Blood Cells into Peripheral Vein, Percutaneous Approach (01/06/24) Labs on day of discharge: Laboratory Results - last 24 hr 10/22/24 10/22/24 10/22/24 11:01 16:20 20:37 WBC RBC Hgb Hct MCV MCH MCHC RDW Plt Count MPV Absolute Nucleated RBC Nucleated RBC % (auto) PT INR Sodium Potassium Chloride Carbon Dioxide Anion Gap BUN Creatinine Estim Creat Clear Calc Estimated GFR POC Glucose 130 H 133 H 142 H Random Glucose Calcium Blood Type Antibody Screen Crossmatch 10/23/24 10/23/24 10/23/24 06:42 07:21 08:14 WBC 5.9 RBC 2.42 L Hgb 7.5 L Hct 23.7 L MCV 97.9 MCH 31.0 MCHC 31.6 RDW 17.2 H Plt Count 200 MPV 8.8 L Absolute Nucleated RBC 0.000 Nucleated RBC % (auto) 0.0 PT 36.6 H INR 3.1 H Sodium 137 Potassium 4.6 Chloride 101 Carbon Dioxide 28 Anion Gap 13 BUN 76 H Creatinine 1.71 H Estim Creat Clear Calc 31.1 Estimated GFR 30 POC Glucose 133 H Random Glucose 141 H Calcium 8.3 L Blood Type O Positive Antibody Screen NEGATIVE Crossmatch See Detail Discharge Plan Discharge Anticipated Discharge Date/Time: 10/22/24 07:33 Patient Disposition: Home Health Service Discharge Diagnosis: TORRI on CKD stage 3 Supratherapeutic INR Acute on chronic heart failure with reduced ejection fraction Hyperkalemia Abdominal pain Acute on chronic anemia Prolonged QTC Mild persistent asthma Acute on chronic back pain Referrals: Laurie Adrian [Outside] - 1 Day (RESUMPTION OF WEEKLY INR AND NEW HOME PHYSICAL THERAPY) Devi Benavides MD [Primary Care Provider] - 1 Week Discharge Medications: Continued gabapentin 300 mg capsule 300 mg PO TID sennosides [senna] 8.6 mg tablet 8.6 mg PO DAILY ferrous sulfate 325 mg (65 mg iron) tablet,delayed release (DR/EC) 325 mg PO DAILY buspirone 5 mg tablet 1.25 mg PO DAILY amiodarone 200 mg tablet 200 mg PO DAILY spironolactone 25 mg tablet 12.5 mg PO DAILY lidocaine 5 % adhesive patch,medicated 1 patch topical DAILY PRN (Reason: Pain) docusate sodium 100 mg capsule 100 mg PO BID PRN (Reason: constipation) furosemide 20 mg tablet 20 mg PO QID warfarin 1 mg tablet 1 mg PO DAILY albuterol sulfate 90 mcg/actuation HFA aerosol inhaler 2 puff inhalation Q4H PRN (Reason: Shortness Of Breath Or Wheezing) oxycodone 5 mg tablet 5 mg PO Q8H PRN (Reason: severe pain) cyclobenzaprine 5 mg tablet 5 mg PO TID PRN (Reason: muscle spasms) Qvar RediHaler 80 mcg/actuation HFA aerosol breath activated 2 inh INHALATION BID PRN (Reason: Shortness Of Breath Or Wheezing) albuterol sulfate 2.5 mg /3 mL (0.083 %) solution for nebulization 2.5 mg inhalation Q2-4H PRN (Reason: Shortness Of Breath Or Wheezing) Januvia 100 mg tablet 100 mg PO DAILY Discontinued amoxicillin 500 mg capsule 500 mg PO TID Diet: Advance to usual diet Activity on Discharge: As tolerated Stand Alone Forms: Patient Portal Discharge page Print Language: Wolof Care Plan Goals: Follow closely with [facility] Take laxatives to maintan a good bowel regime Health Concerns: TORRI on CKD stage 3 Supratherapeutic INR Acute on chronic heart failure with reduced ejection fraction Hyperkalemia Constipation Acute on chronic anemia Prolonged QTC Mild persistent asthma Acute on chronic back pain Plan of Treatment: Follow-up with primary care provider as needed Take all medications as prescribed Assessment: See discharge summary
[2024-10-23] MEDS: Ammonium Lactate 12 % Lotion 226 GM BOTTLE 1 APPL TOPICAL (11:09)
[2024-10-23 11:43] LABS: Glucose, Whole Blood 144 mg/dL (60-115)
[2024-10-23 16:05] LABS: Glucose, Whole Blood 150 mg/dL (60-115)
[2024-10-23] MEDS: Warfarin Sodium 1 MG TABLET PO (17:16)
[2024-10-23] MEDS: Insulin Lispro 100 UNIT/ML 3 ML VIAL SUBCUT (17:16)
[2024-10-23] MEDS: Furosemide 20 MG/2 ML VIAL IVPUSH (18:51)
[2024-10-23 20:17] LABS: Glucose, Whole Blood 106 mg/dL (60-115)
[2024-10-23] MEDS: Cocoa Butter/Zinc Oxide SUPP.RECT 1 SUPP PR (21:22)
[2024-10-23] MEDS: LORazepam 0.5 MG TABLET PO (22:23)
[2024-10-24 04:00] VITALS: BP 110/53; PULSE 80; RESP 20; TEMP 36.6; O2SAT 93
[2024-10-24] MEDS: oxyCODONE HCl Immed Release 5 MG TABLET PO ×2 (05:25→19:55)
[2024-10-24 07:41] VITALS: BP 142/63; PULSE 82; RESP 18; TEMP 36.8; O2SAT 98
[2024-10-24 07:55] LABS: Glucose, Whole Blood 190 mg/dL (60-115)
--- NOTE | 2024-10-24 09:14 | MHC.CM.PN ---
Addendum entered by Kym Hay RN 10/24/24 14:05: DISCHARGE CANCELLED D/T DROP IN H&H AND POSSIBLE HEMOLYSIS. Original Note: PT MEDICALLY CLEARED FOR DC HOME W/GABINO [facility]AMMER FOR SN, PT WILL CALL FAMILY TO ARRANGE TRANSPORT.
[2024-10-24] MEDS: Amiodarone HCL 200 MG TABLET PO (09:24)
[2024-10-24] MEDS: Docusate Sodium 100 MG CAPSULE PO ×2 (09:24→21:57)
[2024-10-24] MEDS: Gabapentin 300 MG CAPSULE PO ×2 (09:24→19:56)
[2024-10-24] MEDS: Ferrous Sulfate 324 MG TABLET.DR PO (09:24)
[2024-10-24] MEDS: Sennosides 8.6 MG TABLET PO (09:24)
[2024-10-24] MEDS: Furosemide 20 MG TABLET PO ×4 (09:25→19:56)
[2024-10-24] MEDS: busPIRone HCl 5 MG TABLET PO ×2 (09:25→19:56)
[2024-10-24] MEDS: 0.9 % Sodium Chloride Flush 3 ML SYRINGE IVFLUSH ×3 (09:25→19:57)
[2024-10-24] MEDS: Insulin Lispro 100 UNIT/ML 3 ML VIAL SUBCUT ×3 (09:25→20:03)
[2024-10-24 09:30] LABS: Hematocrit 24.7 % (37.0-47.0); Hemoglobin 7.8 g/dl (12.0-16.0)
[2024-10-24] MEDS: Ammonium Lactate 12 % Lotion 226 GM BOTTLE 1 APPL TOPICAL (09:37)
[2024-10-24 10:15] LABS: INTERNATIONAL NORM RATIO 2.6 (0.9-1.1); Prothrombin Time 30.6 SEC (10.9-12.4)
[2024-10-24 11:09] VITALS: BP 108/57; PULSE 84; RESP 18; TEMP 36.5; O2SAT 98
[2024-10-24 11:43] LABS: Glucose, Whole Blood 90 mg/dL (60-115)
[2024-10-24 11:50] LABS: Lactate Dehydrogenase 253 U/L (122-220)
[2024-10-24 11:51] LABS: Haptoglobin 31 mg/dL (63-273)
--- NOTE | 2024-10-24 12:20 | P.PNNP_ITS ---
Subjective Subjective Date of Service: 10/24/24 Principal diagnosis: CHF, valvular heart disease. Interval history: seen and examined feels better denies SOB Physical Exam 2 Vital Signs: Vital Signs: Last Vital Signs Temp 97.7 F 10/24/24 11:09 Pulse 84 10/24/24 11:09 Resp 18 10/24/24 11:09 BP 108/57 L 10/24/24 11:09 Pulse Ox 98 10/24/24 11:09 O2 Del Method Room Air 10/24/24 11:09 O2 Flow Rate 2 10/10/24 08:59 BMI result Body Mass Index 28.9 Const: General: alert and awake HEENT: Head: Yes normocephalic and Yes atraumatic Neck: Neck: Yes supple Resp: Auscultation: diminished lung sounds Cardio: Heart sounds: S1 normal heart sound present and S2 normal heart sound present GI: Palpation (GI): Soft to palpation and nontender Extrem: General: Yes edema Objective Data Labs 10/24/24 08:55 10/23/24 06:42 Labs: Laboratory Results - last 24 hr 10/23/24 10/23/24 10/23/24 08:14 15:57 20:08 Hgb Hct PT INR POC Glucose 150 H 106 Haptoglobin Lactate Dehydrogenase Blood Type O Positive Antibody Screen NEGATIVE Crossmatch See Detail 10/24/24 10/24/24 10/24/24 07:37 08:55 11:07 Hgb 7.8 L Hct 24.7 L PT 30.6 H INR 2.6 H POC Glucose 190 H 90 Haptoglobin Lactate Dehydrogenase Blood Type Antibody Screen Crossmatch 10/24/24 11:27 Hgb Hct PT INR POC Glucose Haptoglobin 31 L Lactate Dehydrogenase 253 H Blood Type Antibody Screen Crossmatch Procedures Date of Service Date of Service: 10/24/24 Assessment & Plan Assessment and plan (1) TORRI (acute kidney injury): Status: Acute (2) Hyperkalemia: Status: Acute (3) HFrEF (heart failure with reduced ejection fraction): Status: Acute (4) Anemia: Status: Acute Plan Scr better TORRI due to renal hypoperfusion in the setting of anemia was on HD until recently Permcath dc few weeks ago elevated serum potassium due to compromised distal flow known CKD baseline Scr ~ 1-1.5 mg/dl followed by Dr Miller HFrEF LVEF 25-30% REC c/w oral furosemide follow kidney function and electrolytes sabino arrange for o/p renal f/u in my office Time Spent With Patient Time: Total time managing care of this patient today ____ minutes. Progress Note: Quality Stroke Does the patient have a stroke diagnosis?: No
[2024-10-24 13:36] LABS: Reticulocyte Percent 7.6 % (0.5-1.8)
--- NOTE | 2024-10-24 13:39 | P.PNIM_ITS ---
Subjective Subjective Date of Service: 10/24/24 Interval History: seen and examined this morning follow up for TORRI, CHF remains anemic but no evidence of overt blood loss reporting leg swelling Review of Systems Review of Systems: Yes all other systems are reviewed and are negative Constitutional Constitutional: Denies chills and Denies fever(s) Cardiovascular Cardiovascular: Denies chest pain and Denies palpitations Endocrine Endocrine: Denies palpitations Physical Exam 2 Vital Signs: Vital Signs: Last Vital Signs Temp 97.7 F 10/24/24 11:09 Pulse 84 10/24/24 11:09 Resp 18 10/24/24 11:09 BP 108/57 L 10/24/24 11:09 Pulse Ox 98 10/24/24 11:09 O2 Del Method Room Air 10/24/24 11:09 O2 Flow Rate 2 10/10/24 08:59 BMI result Body Mass Index 28.9 Const: General: cooperative, comfortable, no acute distress, alert and awake Nutritional Appearance: average body habitus Orientation/consciousness: p atient oriented x3 Resp: Effort & Inspection: normal respiratory effort, able to speak in complete sentences, no respiratory distress and no use of accessory muscles A uscultation: clear to auscultation bilaterally Cardio: Rate: regular rate GI: Inspection: No distended Palpation (GI): Soft to palpation Skin: Other: chronic venous stasis skin changes; b/l leg edema bruise left knee Neuro: General: patient oriented x3 Extrem: Other: b/l LE edema Objective Data Active Medications Acetaminophen (Acetaminophen 325 Mg Tablet) 975 mg PO Q6H PRN PRN Reason: Pain, Mild 1-3,fever,headache Albuterol Sulfate (Albuterol Sulfate 90 Mcg 8 Gm Inhaler) 2 puff INHALE Q4H PRN PRN Reason: Shortness Of Breath Or Wheezing Amiodarone HCl (Amiodarone Hcl 200 Mg Tablet) 200 mg PO DAILY [facility] Last Admin: 10/24/24 09:24 Dose: 200 mg Documented By: KAM Buspirone HCl (Buspirone Hcl 5 Mg Tablet) 5 mg PO BID [facility] Last Admin: 10/24/24 09:25 Dose: 5 mg Documented By: KAM Calcium Carbonate (Calcium Carbonate 750 Mg Tab.Chew) 750 mg PO Q4H PRN PRN Reason: Heartburn Last Admin: 10/20/24 15:11 Dose: 750 mg Documented By: TERESA Cyclobenzaprine HCl (Cyclobenzaprine Hcl 5 Mg Tablet) 5 mg PO TID PRN PRN Reason: muscle spasms Dextrose (Dextrose 50 % 25 Gm/50 Ml Syringe) 25 gm IVPUSH Q15M PRN; Protocol PRN Reason: per Hypoglycemia Standing Ord. Docusate Sodium (Docusate Sodium 100 Mg Capsule) 100 mg PO BID [facility] Last Admin: 10/24/24 09:24 Dose: 100 mg Documented By: KAM Ferrous Sulfate (Ferrous Sulfate 324 Mg Tablet.) 324 mg PO DAILY [facility] Last Admin: 10/24/24 09:24 Dose: 324 mg Documented By: KAM Fluticasone Propionate (Fluticasone Propionate 250 Mcg Blst.W.Dev) 1 puff INHALE RBID PRN PRN Reason: Shortness Of Breath Or Wheezing Furosemide (Furosemide 20 Mg Tablet) 20 mg PO QID [facility]; Protocol Gabapentin (Gabapentin 300 Mg Capsule) 300 mg PO BID [facility] Last Admin: 10/24/24 09:24 Dose: 300 mg Documented By: KAM Glucose (Glucose Gel 15 Gm Gel..Gram.) 15 gm PO Q15M PRN; Protocol PRN Reason: per Hypoglycemia Standing Ord. Insulin Human Lispro (Insulin Lispro 100 Unit/Ml 3 Ml Vial) 0 unit SUBCUT QIDACHS [facility]; Protocol Last Admin: 10/24/24 09:25 Dose: 2 unit Documented By: KAM Lactic Acid (Ammonium Lactate 12 % Lotion 226 Gm Bottle) 1 appl TOPICAL DAILY [facility]; Protocol Last Admin: 10/24/24 09:37 Dose: 1 appl Documented By: KAM Lidocaine (Lidocaine 4 % Patch Adh..Patch) 1 patch TRANSDERMA DAILY PRN PRN Reason: Pain Last Admin: 10/10/24 17:33 Dose: 1 patch Documented By: SYDNIE Lorazepam (Lorazepam 0.5 Mg Tablet) 0.5 mg PO Q8H PRN PRN Reason: Anxiety Last Admin: 10/23/24 22:23 Dose: 0.5 mg Documented By: CATARINA Magnesium Citrate (Magnesium Citrate 300 Ml Solution) 300 ml PO DAILY PRN PRN Reason: Constipation Last Admin: 10/16/24 10:41 Dose: 300 ml Magnesium Hydroxide (Milk Of Magnesia 30 Ml Oral.Susp) 30 ml PO DAILY PRN PRN Reason: Constipation Last Admin: 10/22/24 11:38 Dose: 30 ml Documented By: ELA Melatonin (Melatonin 3 Mg Tablet) 6 mg PO BEDTIME PRN PRN Reason: Insomnia Oxycodone HCl (Oxycodone Hcl Immed Release 5 Mg Tablet) 5 mg PO Q6H PRN PRN Reason: Pain, Severe (Pain Scale 7-10) Last Admin: 10/24/24 05:25 Dose: 5 mg Documented By: CATARINA Senna (Sennosides 8.6 Mg Tablet) 8.6 mg PO DAILY [facility] Last Admin: 10/24/24 09:24 Dose: 8.6 mg Documented By: KAM Sodium Biphosphate/Sodium Phosphate (Sodium Phosphate,Mobile-Dibasic 133 Ml Enema) 133 ml RI ONCE PRN PRN Reason: Constipation Sodium Chloride (0.9 % Sodium Chloride Flush 3 Ml Syringe) 3 ml IVFLUSH QSHIFT [facility] Last Admin: 10/24/24 09:25 Dose: 3 ml Documented By: KAM Spironolactone (Spironolactone 25 Mg Tablet) 12.5 mg PO DAILY [facility]; Protocol Last Admin: 10/18/24 08:17 Dose: 12.5 mg Documented By: RADHA Warfarin Sodium (Warfarin Sodium 1 Mg Tablet) 1 mg PO DAILY@1800 [facility] Last Admin: 10/23/24 17:16 Dose: 1 mg Documented By: LEIGHTON Labs 10/24/24 08:55 10/23/24 06:42 Labs: Laboratory Results - last 24 hr 10/23/24 10/23/24 10/23/24 06:42 08:14 15:57 Absolute Retic 0.180 H Percent Retic 7.6 H Immature Retic Fraction 19.0 H Retic Hgb Equivalent 32.0 PT INR POC Glucose 150 H Haptoglobin Lactate Dehydrogenase Blood Type O Positive Antibody Screen NEGATIVE Crossmatch See Detail 10/23/24 10/24/24 10/24/24 20:08 07:37 08:55 Absolute Retic Percent Retic Immature Retic Fraction Retic Hgb Equivalent PT 30.6 H INR 2.6 H POC Glucose 106 190 H Haptoglobin Lactate Dehydrogenase Blood Type Antibody Screen Crossmatch 10/24/24 10/24/24 11:07 11:27 Absolute Retic Percent Retic Immature Retic Fraction Retic Hgb Equivalent PT INR POC Glucose 90 Haptoglobin 31 L Lactate Dehydrogenase 253 H Blood Type Antibody Screen Crossmatch Assessment and Plan (1) HFrEF (heart failure with reduced ejection fraction): Status: Acute (2) TORRI (acute kidney injury): Status: Acute (3) Anemia: Status: Acute Plan 64-year-old female with a history of asthma, hyperlipidemia,diabetes, mitral stenosis s/p replacement with mechanical valve, systolic heart failure with EF of 25-30 % on echo 07/2023, and persistent AFib, who presented to the ED due to abdominal pain for an unknown period of time as well as back pain. In the ED she was found to be critically anemic and guaiac positive. She was transfused with 2 units PRBC. INR was supratherapeutic at 7.6. Initial hemoglobin was 6.5, repeat 8.7, vitamin K was deferred. Acute on chronic anemia no evidence of acute blood loss s/p 3U Prbc. H/H stable Avoid vitamin K to avoid risk of thrombotic complications due to mechanical mitral valve Seen by GI- Due to complicated cardiac history, recommend conservative management, transfuse as needed to keep hematocrit above 30; if develops active bleeding, would need transfer to tertiary care facility Hematocrit <30 and received additional unit of prbc, follow up H/H today unchanged - initial labs indicate possible hemolysis playing a role will check follow up labs, get hematology consult, follow H/H Abdominal pain. Resolved Secondary to constipation on KUB Senna, Colace, mag citrate and fleets enema Right leg pain doppler us to r/o DVT negative chronic made worse by leg edema TORRI on ckd3. Resolved creatinine 1.71 today will increase lasix back to baseline dose due to increasing leg edema nephro following Supratherapeutic INR. Resolved INR 2.6 continue home dose of coumadin follow INR Acute on chronic HFrEF History of severe LV systolic dysfunction secondary to nonischemic cardiomyopathy, severe aortic stenosis, severe tricuspid regurgitation, pulmonary hypertension She has done poorly with overall medical therapy and there has been concerned about pursuing percutaneous treatment of her aortic as well as tricuspid well pathology although felt that she was too high risk and was not able to be performed at [facility] was referred to [place] Bilateral pleural effusion/pulmonary edema cardiology following-initially treated with IV lasix, which patient insisted on continuing but then resumed po lasix. lasix/aldactone placed on hold 10/18 for torri lasix now resumed at home dose palliative care has been recommended Hyperkalemia resolved with lokelma aldactone on hold follow bmp Prolonged QTC Okay to continue amiodarone per Cardiology electrolytes normal avoid QT prolonging agents Mild persistent asthma, no acute exacerbation Continue baseline meds Type 2 diabetes Hold Januvia sliding scale insulin Persistent AFib EKG with AFib, rate controlled continue amiodarone, coumadin Chronic back pain continue lidocaine patch gabapentin continue oxycodone Full code VTE prophylaxis, Coumadin dispo: home with services when medically ready, will need close INR monitoring Quality Stroke Does the patient have a stroke diagnosis?: No VTE Prior VTE?: No VTE Risk Level:: Medical - moderate - high VTE Device Contraindication: N/A - Device Ordered VTE Drug Contraindication: Treatment Not Indicated
[2024-10-24 13:50] LABS: Alanine Aminotransferase 12 U/L (0-31); Albumin Level 3.1 g/dL (3.5-5.0); Aspartate Amino Transferase 25 U/L (5-31); Bilirubin Direct 0.4 mg/dL (0.0-0.5); Total Protein 5.5 g/dL (6.5-8.0)
[2024-10-24 13:54] LABS: Alkaline Phosphatase 173 U/L (39-117)
[2024-10-24 15:20] VITALS: BP 128/60; PULSE 78; RESP 18; TEMP 36.7; O2SAT 96
--- NOTE | 2024-10-24 16:15 | PM.HEMONCCN ---
Subjective - Subjective Chief complaint: Consult for: Significant anemia. Patient: new to practice Consult date: 10/24/24 Requesting Physician: Soyna. Primary Care Provider: Devi Santoyo MD Family Provider: Devi Santoyo MD. Medical Summary: DIAGNOSIS: SIGNIFICANT ANEMIA. NO EVIDENCE OF GI BLEEDING. It Risk Advisor Utilized?: No - Syriac Speaking HPI - Consult Narrative Reason for consult: Consult for: Anemia. Narrative: Ruby Anthony is a 64 year old lady, with a history of asthma, hyperlipidemia,diabetes, mitral stenosis s/p replacement with mechanical valve, systolic heart failure with EF of 25-30 % on echo 07/2023, and persistent AFib. She presented to the ED due to abdominal pain for an unknown period of time as well as back pain and or pain. The patient received any medications for anxiety and pain and has been sleeping in unable to give history. Based off of the ED provider know the patient had a distended abdomen and stated independent away for about a month. She has had associated nausea but no vomiting. She can not recall the last time she had a bowel movement but has been able to pass gas. In addition she felt that her chronic back pain and leg pain has been worse than her baseline. She has had chronic opioid meds. She denied any fever. ED she was found to be critically anemic and guaiac positive. Initial hemoglobin was 6.5, repeat 8.7, She was transfused with 2 units PRBC. INR was supratherapeutic at 7.6. vitamin K was deferred. Medical History:) Chronic systolic heart failure: history is significant chronic cardiovascular issues including prior mechanical mitral valve replacement for what appears to be rheumatic heart disease, severe LV systolic dysfunction with LVEF of 25-30%, nonischemic with heart failure with reduced ejection fraction with recurrent hospitalization related to the same, severe aortic stenosis, low-flow severe aortic stenosis, severe tricuspid regurgitation, pulmonary hypertension, recurrent advanced kidney disease requiring intermittent dialysis, currently not on dialysis, chronic atrial fibrillation on rate control with amiodarone has not been able to tolerate other medications and has not been able to tolerate other neurohormonal modulators due to multiple risk factors. Type 2 diabetes mellitus without complications Mild intermittent asthma Secondary pulmonary arterial hypertension Ovarian cancer Tricuspid valve insufficiency, non-rheumatic Non-rheumatic aortic stenosis Persistent atrial fibrillation Surgical History:) H/O mitral valve replacement with mechanical valve Family History:D) Mother Heart disease Father Heart disease Diabetes Social History:) Household Members: Family Housing: House Do you presently have visiting nurse or other home services: Yes Alcohol intake: never Review of Systems Review of Systems: Yes Unobtainable due to mental condition. Review of Systems - Constitutional Reports no additional constitutional complaints, Denies chills, Reports fatigue, Denies fever(s), Reports lack of energy, Reports malaise, Reports poor appetite - Eyes Reports no additional eye complaints - ENT Reports no additional ear, nose, mouth, and throat complaints - Cardiovascular Reports no additional cardiovascular complaints - Respiratory Reports no additional respiratory complaints - Gastrointestinal Reports no additional gastrointestinal complaints - Genitourinary Reports no additional female genitourinary complaints - Musculoskeletal Reports no additional musculoskeletal complaints - Integumentary/Breasts Skin/Breast: Reports no additional skin complaints - Neurologic Reports no additional neurologic complaints, Reports as per HPI, Denies dizziness, Denies syncope, Reports weakness - Psychiatric Reports no additional psychiatric complaints - Endocrine Reports no additional endocrine complaints - Hematologic/Lymphatic Reports no additional hematologic/lymphatic complaints - Allergic/Immunologic Reports no additional allergic/immunologic complaints Oncology Screenings - ECOG Performance Status ECOG Performance Status: [facility] Medical History: Medical History (Last Updated 10/10/24 @ 01:56 by Isabela Francois PA-C) Acute on chronic systolic (congestive) heart failure Anemia Chronic pain Chronic systolic heart failure Decompensated heart failure HFrEF (heart failure with reduced ejection fraction) Mild intermittent asthma Non-rheumatic aortic stenosis Ovarian cancer Persistent atrial fibrillation Secondary pulmonary arterial hypertension Tricuspid valve insufficiency, non-rheumatic Type 2 diabetes mellitus without complications Functional capacity: wheelchair bound Patient : No Family History: Family History (Last Reviewed 08/23/24 @ 07:08 by Yo Anthony MD) Mother Heart disease Father Heart disease Diabetes Surgical History: Surgical History (Last Reviewed 08/23/24 @ 07:08 by Yo Anthony MD) H/O mitral valve replacement with mechanical valve Social History: Social History (Last Reviewed 08/23/24 @ 07:08 by Yo Anthony MD) Living Situation History: Household Members: Spouse Housing: House Do you presently have visiting nurse or other home services: Yes Tobacco History: Patient Tobacco Use Status: Former Tobacco user Years Smoked: 4 +/- Advance Directives: Advance Directives Date on File: 10/23/23 Occupation Assessmet: service: No Home Medications and Allergies Current Medications: Current Medications Acetaminophen (Acetaminophen 325 Mg Tablet) 975 mg PO Q6H PRN PRN Reason: Pain, Mild 1-3,fever,headache Albuterol Sulfate (Albuterol Sulfate 90 Mcg 8 Gm Inhaler) 2 puff INHALE Q4H PRN PRN Reason: Shortness Of Breath Or Wheezing Amiodarone HCl (Amiodarone Hcl 200 Mg Tablet) 200 mg PO DAILY [facility] Last Admin: 10/24/24 09:24 Dose: 200 mg Buspirone HCl (Buspirone Hcl 5 Mg Tablet) 5 mg PO BID [facility] Last Admin: 10/24/24 09:25 Dose: 5 mg Calcium Carbonate (Calcium Carbonate 750 Mg Tab.Chew) 750 mg PO Q4H PRN PRN Reason: Heartburn Last Admin: 10/20/24 15:11 Dose: 750 mg Cyclobenzaprine HCl (Cyclobenzaprine Hcl 5 Mg Tablet) 5 mg PO TID PRN PRN Reason: muscle spasms Dextrose (Dextrose 50 % 25 Gm/50 Ml Syringe) 25 gm IVPUSH Q15M PRN; Protocol PRN Reason: per Hypoglycemia Standing Ord. Docusate Sodium (Docusate Sodium 100 Mg Capsule) 100 mg PO BID [facility] Last Admin: 10/24/24 09:24 Dose: 100 mg Ferrous Sulfate (Ferrous Sulfate 324 Mg Tablet.Dr) 324 mg PO DAILY [facility] Last Admin: 10/24/24 09:24 Dose: 324 mg Fluticasone Propionate (Fluticasone Propionate 250 Mcg Blst.W.Dev) 1 puff INHALE RBID PRN PRN Reason: Shortness Of Breath Or Wheezing Furosemide (Furosemide 20 Mg Tablet) 20 mg PO QID [facility]; Protocol Last Admin: 10/24/24 14:56 Dose: 20 mg Gabapentin (Gabapentin 300 Mg Capsule) 300 mg PO BID [facility] Last Admin: 10/24/24 09:24 Dose: 300 mg Glucose (Glucose Gel 15 Gm Gel..Gram.) 15 gm PO Q15M PRN; Protocol PRN Reason: per Hypoglycemia Standing Ord. Insulin Human Lispro (Insulin Lispro 100 Unit/Ml 3 Ml Vial) 0 unit SUBCUT QIDACHS [facility]; Protocol Last Admin: 10/24/24 14:55 Dose: 2 unit Lactic Acid (Ammonium Lactate 12 % Lotion 226 Gm Bottle) 1 appl TOPICAL DAILY [facility]; Protocol Last Admin: 10/24/24 09:37 Dose: 1 appl Lidocaine (Lidocaine 4 % Patch Adh..Patch) 1 patch TRANSDERMA DAILY PRN PRN Reason: Pain Last Admin: 10/10/24 17:33 Dose: 1 patch Lorazepam (Lorazepam 0.5 Mg Tablet) 0.5 mg PO Q8H PRN PRN Reason: Anxiety Last Admin: 10/23/24 22:23 Dose: 0.5 mg Magnesium Citrate (Magnesium Citrate 300 Ml Solution) 300 ml PO DAILY PRN PRN Reason: Constipation Last Admin: 10/16/24 10:41 Dose: 300 ml Magnesium Hydroxide (Milk Of Magnesia 30 Ml Oral.Susp) 30 ml PO DAILY PRN PRN Reason: Constipation Last Admin: 10/22/24 11:38 Dose: 30 ml Melatonin (Melatonin 3 Mg Tablet) 6 mg PO BEDTIME PRN PRN Reason: Insomnia Oxycodone HCl (Oxycodone Hcl Immed Release 5 Mg Tablet) 5 mg PO Q6H PRN PRN Reason: Pain, Severe (Pain Scale 7-10) Last Admin: 10/24/24 05:25 Dose: 5 mg Senna (Sennosides 8.6 Mg Tablet) 8.6 mg PO DAILY [facility] Last Admin: 10/24/24 09:24 Dose: 8.6 mg Sodium Biphosphate/Sodium Phosphate (Sodium Phosphate,Cotton-Dibasic 133 Ml Enema) 133 ml SD ONCE PRN PRN Reason: Constipation Sodium Chloride (0.9 % Sodium Chloride Flush 3 Ml Syringe) [facility] Last Admin: 10/24/24 09:25 Dose: 3 ml Spironolactone (Spironolactone 25 Mg Tablet) 12.5 mg PO DAILY [facility]; Protocol Last Admin: 10/18/24 08:17 Dose: 12.5 mg Warfarin Sodium (Warfarin Sodium 1 Mg Tablet) 1 mg PO DAILY@1800 [facility] Last Admin: 10/23/24 17:16 Dose: 1 mg Home Medications ?Medication ?Instructions ?Recorded ?Confirmed ?Type sitagliptin phosphate 100 mg 100 mg PO DAILY 11/16/22 10/09/24 History tablet (Januvia) ferrous sulfate 325 mg (65 mg 325 mg PO DAILY 06/14/23 10/09/24 History iron) tablet,delayed release gabapentin 300 mg capsule 300 mg PO TID 06/14/23 10/09/24 History sennosides 8.6 mg tablet (senna) 8.6 mg PO DAILY constipation 06/14/23 10/09/24 History albuterol sulfate 2.5 mg/3 mL 2.5 mg inhalation Q2-4H PRN 07/22/23 10/09/24 History (0.083 %) solution for nebulization Shortness Of Breath Or Wheezing albuterol sulfate 90 mcg/actuation 2 puff inhalation Q4H PRN 10/09/24 10/09/24 History aerosol inhaler Shortness Of Breath Or Wheezing amiodarone 200 mg tablet 200 mg PO DAILY 10/09/24 10/09/24 History beclomethasone dipropionate 80 2 inh inhalation BID PRN Shortness 10/09/24 10/09/24 History mcg/actuation HFA breath activated Of Breath Or Wheezing aerosol (Qvar RediHaler) buspirone 5 mg tablet 1.25 mg PO DAILY 10/09/24 10/09/24 History docusate sodium 100 mg capsule 100 mg PO BID PRN constipation 10/09/24 10/09/24 History furosemide 20 mg tablet 20 mg PO QID 10/09/24 10/09/24 History lidocaine 5 % topical patch 1 patch topical DAILY PRN Pain 10/09/24 10/09/24 History oxycodone 5 mg tablet 5 mg PO Q8H PRN severe pain 10/09/24 10/09/24 History spironolactone 25 mg tablet 12.5 mg PO DAILY 10/09/24 10/09/24 History warfarin 1 mg tablet 1 mg PO DAILY 10/09/24 10/09/24 History Allergies Allergy/AdvReac Type Severity Reaction Status Date / Time lisinopril [LISINOPRIL] Allergy Severe ANGIOEDEMA Verified 10/09/24 15:45 morphine [MORPHINE] Allergy Severe ANAPHYLAXIS Verified 10/09/24 15:45 penicillin V Allergy Intermediate Itching Verified 10/09/24 15:45 cefaclor [From CECLOR] Allergy Unknown HIVES Verified 10/09/24 15:45 ciprofloxacin Allergy Unknown itchy Verified 10/09/24 15:45 codeine Allergy Unknown HIVES Verified 10/09/24 15:45 methylprednisolone Allergy Unknown Unknown Verified 10/09/24 15:45 nitrofurantoin Allergy Unknown Unknown Verified 10/09/24 15:45 olmesartan [Benicar] Allergy Unknown Unknown Verified 10/09/24 15:45 Penicillins Allergy Unknown HIVES Verified 10/09/24 15:45 Sulfa (Sulfonamide Allergy Unknown HIVES Verified 10/09/24 15:45 Antibiotics) empagliflozin AdvReac Severe Confusion Verified 10/09/24 15:45 [From Jardiance] apixaban [From Eliquis] AdvReac Intermediate Nausea Verified 10/09/24 15:45 hydromorphone [From Dilaudid] AdvReac Shakiness Verified 10/09/24 15:45 odansetron Allergy Severe Hives Uncoded 10/09/24 15:45 Metoprolol Succinate Allergy Intermediate Hives Uncoded 10/09/24 15:45 celcor Allergy Unknown itchy Uncoded 10/09/24 15:45 Gentamicin in Saline Allergy Unknown hives Uncoded 10/09/24 15:45 Gentamicin Sulfate Allergy Unknown hives Uncoded 10/09/24 15:45 Latex Allergy Unknown Itching Uncoded 10/09/24 15:45 latex Allergy Unknown Itching Uncoded 10/09/24 15:45 sulfonamides Allergy Unknown Unknown Uncoded 10/09/24 15:45 vioxx Allergy Unknown Itching Uncoded 10/09/24 15:45 Bicitra AdvReac Unknown unknown Uncoded 10/09/24 15:45 Physical Exam Vital signs: Vital Signs Temp 98.0 F 10/24/24 15:20 Pulse 78 10/24/24 15:20 Resp 18 10/24/24 15:20 BP 128/60 10/24/24 15:20 Pulse Ox 96 10/24/24 15:20 O2 Del Method Room Air 10/24/24 15:20 O2 Flow Rate 2 10/10/24 08:59 Intake & Output 10/23/24 10/24/24 10/24/24 18:59 06:59 18:59 Intake Total 830 / 830 480 / 480 Output Total 300 / 300 Balance 830 / 530 -300 / 530 480 / 480 Urine Output (Average ml/kg/hr) 0.34 0.34 Intake: Intake, Oral Amount 480 / 480 480 / 480 Intake (Blood Product) Amount 350 / 350 Red Blood Cells (E0336) Unit 350 / 350 [id number] Output: Output, Urine Amount 300 / 300 Other: Meal Refused No No NPO No No Breakfast % Eaten 75% 100% Lunch % Eaten 75% 75% Dinner % Eaten 75% Eating (Feeding) Ability Set Up only Set Up only Number of Incontinent Voids 3 3 Number of Unmeasured Voids 3 2 Number of Bowel Movements 3 3 Urine Bedside Commode Bedside Commode Bedside Commode Urine Color Yellow Yellow Last Bowel Movement 10/23/24 10/23/24 Stool Bedside Commode Bedside Commode Stool Amount Large Small Stool Color Brown Black (Tarry) Stool Consistency Soft Liquid Weight 74 kg - Constitutional Present: mild distress - Routine HEENT Exam Head: Present: normal inspection, normocephalic Eye: Present: normal appearance ENT: Present: mucous membranes moist - Routine Neck Exam Present: supple - Routine Respiratory Exam Present: decreased breath sounds - Routine Cardiovascular Exam Cardiovascular: Present: RRR, S1, S2 - Routine Extremities Exam Present: nontender - Routine Skin Exam Present: normal turgor Hem/Onc Consult Result - Labs CBC & Chem 7: 10/25/24 06:23 10/23/24 06:42 Labs: Short CBC 10/24/24 Range/Units 08:55 Hgb 7.8 L (12.0-16.0) g/dl Hct 24.7 L (37.0-47.0) % Liver Function 10/24/24 Range/Units 13:13 Total Bilirubin 1.0 (0.0-1.0) mg/dL Direct Bilirubin 0.4 (0.0-0.5) mg/dL AST 25 (5-31) U/L ALT 12 (0-31) U/L Alkaline Phosphatase 173 H (39-117) U/L Albumin 3.1 L (3.5-5.0) g/dL Assessment and Plan Patient Active problem list reviewed?: Yes (1) Anemia Status: Inactive Assessment and plan: This is a pleasant 64 year old lady, admitted back on on account of She came to the hospital due to a significant anemia with a hemoglobin of 6.5on admission. Her hemoglobin in early August was 9.7. She does have a chronic anemia and has received transfusions in the past, although primarily at [facility]. She did not have any particular GI complaints at home.There has been no report of abdominal pain. She has been eating fairly well and without any signs of dysphagia nor vomiting. There has been no report of melena nor hematochezia at home. She does take the Coumadin at home, but does not use any aspirin nor NSAIDs. She is a former smoker and does not use any alcohol. DATABASE: 10/17. HGB 8.2, HCT 26.3. 4/8. HGB 7.2. HCT 22.8. /9. HGB 7.5. HCT 23.7. 4/10 HGB 7.8. HCT 24.7. Retic: 7.6. Haptoglobin 31. LDH 253. CAT scan of the abdomen pelvis from 10/09 revealed: 1. Multilevel thoracolumbar compression deformities some of which appear acute/subacute as described. 2. Tiny bilateral nonobstructive subcentimeter renal calculi measuring no more than 2 mm. 3. Possible mild enteritis. 4. Suspect asymmetric right-sided pulmonary edema with bilateral effusions. 5. Additional findings as described. IMPRESSION: ANEMIA. DIFFERENTIAL DIAGNOSIS: 1. IRON-DEFICIENCY ANEMIA: She presented with abdominal pain, occult blood in the stools and supratherapeutic INR. Iron studies from 07/25: 21/308/7. 2. ANEMIA OF CHRONIC DISEASE: Is in the differential. 3. HEMOLYTIC ANEMIA: Retic 7.6, haptoglobin 31, LDH 253, appears to be consistent with hemolysis. She has a prosthetic valve. She can have valve related hemolytic anemia. Auto-immune FANG not likely. 4. UNDERLYING MYELO INFILTRATIVE DISORDER: Is a possibility at her age. MDS versus lymphoma versus multiple myeloma. Retic: 7.6, haptoglobin 31, LDH 253. She has been diuresed gently with IV Lasix 20 mg IV push b.i.d. Continue spironolactone therapy. TORRI due to renal hypoperfusion in the setting of anemia. was on HD until recently. Maintaining strict intake and output chart. PLAN: Will check Coomb's test. Negative from 10/23. Meanwhile, transfuse to maintain hematocrit over 30. Will monitor her labs carefully. Thanks, - Time Spent With Patient Time Spent with Patient (in minutes): 30
[2024-10-24 16:36] LABS: Glucose, Whole Blood 98 mg/dL (60-115)
[2024-10-24] MEDS: Warfarin Sodium 1 MG TABLET PO (16:59)
[2024-10-24 19:33] VITALS: BP 105/52; PULSE 83; RESP 18; TEMP 36.7; O2SAT 94
[2024-10-24 19:43] LABS: Glucose, Whole Blood 198 mg/dL (60-115)
[2024-10-24 23:52] VITALS: BP 115/62; PULSE 79; RESP 16; TEMP 36.7; O2SAT 94
[2024-10-25 03:13] VITALS: BP 117/62; PULSE 76; RESP 18; TEMP 36.6; O2SAT 94
[2024-10-25 07:30] VITALS: BP 130/67; PULSE 80; RESP 16; TEMP 37.1; O2SAT 100
[2024-10-25 07:33] LABS: MANUAL DIFF FLAG NO
[2024-10-25 07:55] LABS: Basophils Absolute Auto 0.1 X10*3/uL (0.0-0.2); Basophils Percent Auto 1.4 % (0-2); Eosinophils Absolute Auto 0.1 X10*3/uL (0.0-0.4); Eosinophils Percent Auto 2.8 % (0-4); Hemoglobin 7.7 g/dl (12.0-16.0); Imm Gran Abs Auto 0.02 X10*3/uL (0.00-0.03); Imm Gran Pct Auto 0.4 % (0.0-0.4); Lymphocytes Absolute Auto 0.5 X10*3/uL (1.2-4.9); Mean Corpuscular HGB Conc 30.8 g/dl (31.0-35.0); Mean Corpuscular Hemoglobin 30.4 pg (27.0-33.0); Mean Corpuscular Volume 98.8 fL (80.0-98.0); Mean Platelet Volume 9.1 fL (9.4-12.3); Monocytes Absolute Auto 0.5 X10*3/uL (0.1-1.2); Monocytes Percent Auto 9.2 % (2-11); Neutrophils Absolute Auto 3.9 x10*3/uL (2.0-8.3); Neutrophils Percent Auto 76.2 % (45-73); Platelet Count 172 X10*3/uL (160-400); Red Blood Count 2.53 X10*6/uL (4.20-5.50); Red Cell Distribution Width 17.9 % (11.0-16.0); White Blood Count 5.1 X10*3/uL (4.8-10.8)
[2024-10-25 08:01] LABS: Glucose, Whole Blood 131 mg/dL (60-115)
[2024-10-25 08:05] LABS: INTERNATIONAL NORM RATIO 2.6 (0.9-1.1); Prothrombin Time 30.8 SEC (10.9-12.4)
[2024-10-25] MEDS: Ferrous Sulfate 324 MG TABLET.DR PO (09:17)
[2024-10-25] MEDS: Amiodarone HCL 200 MG TABLET PO (09:17)
[2024-10-25] MEDS: LORazepam 0.5 MG TABLET PO (09:17)
[2024-10-25] MEDS: busPIRone HCl 5 MG TABLET PO (09:18)
[2024-10-25] MEDS: Docusate Sodium 100 MG CAPSULE PO (09:18)
[2024-10-25] MEDS: Furosemide 20 MG TABLET PO ×2 (09:18→12:15)
[2024-10-25] MEDS: Gabapentin 300 MG CAPSULE PO (09:18)
[2024-10-25] MEDS: 0.9 % Sodium Chloride Flush 3 ML SYRINGE IVFLUSH (09:18)
[2024-10-25] MEDS: Sennosides 8.6 MG TABLET PO (09:18)
[2024-10-25] MEDS: Spironolactone 25 MG TABLET 12.5 MG PO (09:18)
[2024-10-25] MEDS: oxyCODONE HCl Immed Release 5 MG TABLET PO (09:19)
[2024-10-25] MEDS: Ammonium Lactate 12 % Lotion 226 GM BOTTLE 1 APPL TOPICAL (09:21)
--- NOTE | 2024-10-25 10:34 | PM.DS ---
DS: Providers Provider Date of Service: 10/25/24 Date of admission: 10/10/24 00:24 Date of discharge: 10/25/24 Primary care physician: Devi Santoyo MD Consults: 10/10/24 00:23 Consult to Gastroenterology Routine Consulting Provider: Levi Suarez Reason for consultation: GI bleed Has provider been notified: No 10/10/24 00:52 Consult to Cardiology Routine Consulting Provider: [facility] Reason for consultation: supratherapeutic INR, on coumadin, GI bleed Has provider been notified: No 10/10/24 18:29 Consult to Wound Care Routine Reason for consultation: right wrist skin tear, left lower arm skin tear 10/20/24 09:53 Consult to Nephrology Routine Consulting Provider: [facility] Reason for consultation: alma delia, leg edema Has provider been notified: No 10/24/24 13:01 Consult to Hematology / Oncology Routine Consulting Provider: [facility] Reason for consultation: ?hemolysis Has provider been notified: No Attending physician on discharge: Solomon Barnes Discharging clinician: Leslye Hassan DS: Diagnosis Discharge Diagnosis (1) Anemia: Status: Acute (2) HFrEF (heart failure with reduced ejection fraction): Status: Acute (3) ALMA DELIA (acute kidney injury): Status: Acute (4) Hyperkalemia: Status: Acute (5) Supratherapeutic INR: Status: Acute DS: Summary Hospital Course Hospital Course: History and physical as per admitting provider. Patient is a 64-year-old female with a history of asthma, hyperlipidemia,diabetes, mitral stenosis s/p replacement with mechanical valve, systolic heart failure with EF of 25-30 % on echo 07/2023, and persistent AFib, who presented to the ED due to abdominal pain for an unknown period of time as well as back pain and or pain. The patient received any medications for anxiety and pain and has been sleeping in unable to give history. Based off of the ED provider know the patient had a distended abdomen and stated independent away for about a month. She has had associated nausea but no vomiting. She can not recall the last time she had a bowel movement but has been able to pass gas. In addition she felt that her chronic back pain and leg pain has been worse than her baseline. She has had chronic opioid meds. She denied any fever. ED she was found to be critically anemic and guaiac positive. She was transfused with 2 units PRBC. INR was supratherapeutic at 7.6. Initial hemoglobin was 6.5, repeat 8.7, vitamin K was deferred. Acute on chronic HFrEF History of severe LV systolic dysfunction secondary to nonischemic cardiomyopathy, severe aortic stenosis, severe tricuspid regurgitation, pulmonary hypertension She has done poorly with overall medical therapy and there has been concerned about pursuing percutaneous treatment of her aortic as well as tricuspid well pathology although felt that she was too high risk and was not able to be performed at [facility] was referred to [place]. Has not yet been able to make it to [place] due to frequent hospitalizations. She was treated with IV lasix and eventually switched back to her baseline dose of lasix and aldactone. Her long-term prognosis is poor and palliative care has been recommended in the past and was discussed extensively with the patient and her family. Acute on chronic anemia no evidence of acute blood loss . s/p 4 Prbc. H/H stable. Avoid vitamin K to avoid risk of thrombotic complications due to mechanical mitral valve Seen by GI- Due to complicated cardiac history, recommend conservative management, transfuse as needed to keep hematocrit above 30 labs were consistent with some degree of hemolysis likely due to mechanical mitral value. No overt blood loss was noted. H/H has remained stable for many days. Seen by Hematology. No further inpatient workup recommended Abdominal pain. Patient had some complaints of abdominal pain secondary to constipation that was seen on abdominal imaging. She was treated with senna, Colace, fleets enema, magnesium citrate with good result. Patient has been having bowel movements. Being on narcotic medication is important that she continue a good bowel regimen at home. Supratherapeutic INR. During hospitalization INR was up and down, peaked at 7.6, on warfarin 1 mg daily. INR on day of discharge 2.6 Hyperkalemia. Had some episodes of hypokalemia likely secondary to Lasix and Aldactone. She was given Lokelma and hyperkalemia resolved. ALMA DELIA on ckd3. Secondary to IV diuretics. No IV fluids given due to fragile state of heart failure. Therefore diuretics were held and restarted once kidney function was better. Patient may continue her home dose of Lasix as it previously was. Mild persistent asthma, no acute exacerbation. Continue baseline medications Type 2 diabetes. Continue home medications Persistent AFib. Rate controlled. Continue amiodarone and warfarin. INR monitoring by [facility]. Chronic back pain. May use heat and ice, continue gabapentin, oxycodone as needed. May also use [id number] lidocaine patches Time Attestation Discharge Coordination Time (in mins): 40 Quality: Safe Use of Opioids Does Pt have an Active Cancer Diagnosis on the Problem List?: No Quality: Stroke Does the patient have a stroke diagnosis?: No Physical Exam Vital Signs: Vital Signs: Last Vital Signs Temp 98.8 F 10/25/24 07:30 Pulse 80 10/25/24 07:30 Resp 16 10/25/24 07:30 BP 130/67 10/25/24 07:30 Pulse Ox 100 10/25/24 07:30 O2 Del Method Room Air 10/25/24 07:30 O2 Flow Rate 2 10/10/24 08:59 BMI result Body Mass Index 28.9 Const: General: cooperative, comfortable, no acute distress, alert and awake Nutritional Appearance: average body habitus Orientation/consciousness: patient oriented x3 Resp: Effort & Inspection: normal respiratory effort, able to speak in complete sentences, no respiratory distress and no use of accessory muscles Auscultation: clear to auscultation bilaterally Cardio: Rate: regular rate GI: Inspection: No distended Palpation (GI): Soft to palpation Skin: Other: chronic venous stasis skin changes; b/l leg edema bruise left knee Neuro: General: patient oriented x3 Extrem: Other: b/l LE edema DS: Data Data Completed and Pending Completed studies during hospitalization [Text1]: Procedures Transfusion of Nonautologous Red Blood Cells into Peripheral Vein, Percutaneous Approach (07/22/23) Labs on day of discharge: Laboratory Results - last 24 hr 10/23/24 10/23/24 10/24/24 06:42 08:14 11:07 WBC RBC Hgb Hct MCV MCH MCHC RDW Plt Count MPV Immature Gran % (Auto) Neut % (Auto) Lymph % (Auto) [place] % (Auto) Eos % (Auto) Baso % (Auto) Lymph # (Auto) [place] # (Auto) Eos # (Auto) Baso # (Auto) Abs Immat Gran (auto) Absolute Neuts (auto) Absolute Nucleated RBC Nucleated RBC % (auto) Absolute Retic 0.180 H Percent Retic 7.6 H Immature Retic Fraction 19.0 H Retic Hgb Equivalent 32.0 PT INR POC Glucose 90 Haptoglobin Total Bilirubin Direct Bilirubin AST ALT Alkaline Phosphatase Lactate Dehydrogenase Total Protein Albumin Blood Type O Positive Antibody Screen NEGATIVE [place], Polyspecific NEGATIVE Positive LAKE Work-up TNP Crossmatch See Detail 10/24/24 10/24/24 10/24/24 11:27 13:13 16:28 WBC RBC Hgb Hct MCV MCH MCHC RDW Plt Count MPV Immature Gran % (Auto) Neut % (Auto) Lymph % (Auto) [place] % (Auto) Eos % (Auto) Baso % (Auto) Lymph # (Auto) [place] # (Auto) Eos # (Auto) Baso # (Auto) Abs Immat Gran (auto) Absolute Neuts (auto) Absolute Nucleated RBC Nucleated RBC % (auto) Absolute Retic Percent Retic Immature Retic Fraction Retic Hgb Equivalent PT INR POC Glucose 98 Haptoglobin 31 L Total Bilirubin 1.0 Direct Bilirubin 0.4 AST 25 ALT 12 Alkaline Phosphatase 173 H Lactate Dehydrogenase 253 H Total Protein 5.5 L Albumin 3.1 L Blood Type Antibody Screen LA[place], Polyspecific Positive LAKE Work-up Crossmatch 10/24/24 10/25/24 10/25/24 19:40 06:22 06:23 WBC 5.1 RBC 2.53 L Hgb 7.7 L Hct 25.0 L MCV 98.8 H MCH 30.4 MCHC 30.8 L RDW 17.9 H Plt Count 172 MPV 9.1 L Immature Gran % (Auto) 0.4 Neut % (Auto) 76.2 H Lymph % (Auto) 10.0 L [place] % (Auto) 9.2 Eos % (Auto) 2.8 Baso % (Auto) 1.4 Lymph # (Auto) 0.5 L [place] # (Auto) 0.5 Eos # (Auto) 0.1 Baso # (Auto) 0.1 Abs Immat Gran (auto) 0.02 Absolute Neuts (auto) 3.9 Absolute Nucleated RBC 0.000 Nucleated RBC % (auto) 0.0 Absolute Retic Percent Retic Immature Retic Fraction Retic Hgb Equivalent PT 30.8 H INR 2.6 H POC Glucose 198 H Haptoglobin Total Bilirubin Direct Bilirubin AST ALT Alkaline Phosphatase Lactate Dehydrogenase Total Protein Albumin Blood Type Antibody Screen [place], Polyspecific Positive [place] Work-up Crossmatch 10/25/24 07:36 WBC RBC Hgb Hct MCV MCH MCHC RDW Plt Count MPV Immature Gran % (Auto) Neut % (Auto) Lymph % (Auto) [place] % (Auto) Eos % (Auto) Baso % (Auto) Lymph # (Auto) [place] # (Auto) Eos # (Auto) Baso # (Auto) Abs Immat Gran (auto) Absolute Neuts (auto) Absolute Nucleated RBC Nucleated RBC % (auto) Absolute Retic Percent Retic Immature Retic Fraction Retic Hgb Equivalent PT INR POC Glucose 131 H Haptoglobin Total Bilirubin Direct Bilirubin AST ALT Alkaline Phosphatase Lactate Dehydrogenase Total Protein Albumin Blood Type Antibody Screen [place], Polyspecific Positive [place] Work-up Crossmatch Discharge Plan Discharge Anticipated Discharge Date/Time: 10/22/24 07:33 Patient Disposition: Home Health Service Discharge Diagnosis: ALMA DELIA on CKD stage 3 Supratherapeutic INR Acute on chronic heart failure with reduced ejection fraction Hyperkalemia Abdominal pain Acute on chronic anemia Prolonged QTC Mild persistent asthma Acute on chronic back pain Referrals: Laurie Adrian [Outside] - 1 Day (RESUMPTION OF WEEKLY INR AND NEW HOME PHYSICAL THERAPY) Jc Lagunas MD [Physician] - 2 Weeks Devi Benavides MD [Primary Care Provider] - 1 Week Discharge Medications: New docusate sodium [Colace] 100 mg capsule 100 mg PO BID Qty: 90 0RF sennosides [Senna Lax] 8.6 mg tablet 8.6 mg PO BEDTIME Qty: 90 0RF Continued gabapentin 300 mg capsule 300 mg PO TID sennosides [senna] 8.6 mg tablet 8.6 mg PO DAILY ferrous sulfate 325 mg (65 mg iron) tablet,delayed release (DR/EC) 325 mg PO DAILY buspirone 5 mg tablet 1.25 mg PO DAILY amiodarone 200 mg tablet 200 mg PO DAILY spironolactone 25 mg tablet 12.5 mg PO DAILY lidocaine 5 % adhesive patch,medicated 1 patch topical DAILY PRN (Reason: Pain) docusate sodium 100 mg capsule 100 mg PO BID PRN (Reason: constipation) furosemide 20 mg tablet 20 mg PO QID warfarin 1 mg tablet 1 mg PO DAILY albuterol sulfate 90 mcg/actuation HFA aerosol inhaler 2 puff inhalation Q4H PRN (Reason: Shortness Of Breath Or Wheezing) oxycodone 5 mg tablet 5 mg PO Q8H PRN (Reason: severe pain) Qvar RediHaler 80 mcg/actuation HFA aerosol breath activated 2 inh INHALATION BID PRN (Reason: Shortness Of Breath Or Wheezing) albuterol sulfate 2.5 mg /3 mL (0.083 %) solution for nebulization 2.5 mg inhalation Q2-4H PRN (Reason: Shortness Of Breath Or Wheezing) Januvia 100 mg tablet 100 mg PO DAILY Discontinued amoxicillin 500 mg capsule 500 mg PO TID cyclobenzaprine 5 mg tablet 5 mg PO TID PRN (Reason: muscle spasms) Discharge Orders: Discharge Order (Routine); Ordered 10/25/24 Ordered By: Leslye Hassan Diet: Advance to usual diet Activity on Discharge: As tolerated Stand Alone Forms: Patient Portal Discharge page Print Language: Luxembourgish Other Ambulatory Orders: Basic Metabolic Panel (Routine) Timeframe: 1 Week Facility: [facility] - Location: Laboratory Ordered By: Leslye Hassan Complete Blood Count no Diff (Routine) Timeframe: 1 Week Facility: [facility] - Location: Laboratory Ordered By: Leslye Hassan Care Plan Goals: Follow 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 follow low salt diet. repeat labs in one week INR monitoring consideration for palliative care to focus on quality of life Assessment: See discharge summary Discharge Date/Time: 10/25/24 12:59
--- NOTE | 2024-10-25 10:58 | W.MHC.F2F ---
Service Date Service Date: 10/25/24 Encounter Date of encounter: 10/25/24 Reasons for Services Signs and symptoms assessed: needs correction for INR monitoring Reason for correction: monitoring of PT/INR Reason for physical therapy: home safety and mobility and gait/transfer training MD Overseeing Care: Devi Santoyo Homebound: Leaving the home is medically contraindicated at this time without the asist of a device and/or another person due th the listed conditions above and below. Reason homebound: unsteady gait / fall risk and weakness related to hospital stay Certification: Based on the above findings, I certify that this patient is confined to the home and needs intermittent correction care, physical therapy and/or speech therapy, or continues to need occupational therapy. The patient is under my care, and I have initiated the establishment of the plan of care. The patient will be followed by a physician who will periodically review the plan of care. Time Spent With Patient Time: Total time managing care of this patient today ____ minutes.
[2024-10-25 11:36] VITALS: BP 138/63; PULSE 78; RESP 16; TEMP 36.5; O2SAT 100
[2024-10-25 11:58] LABS: Glucose, Whole Blood 179 mg/dL (60-115)
[2024-10-25] MEDS: Insulin Lispro 100 UNIT/ML 3 ML VIAL SUBCUT (12:15)
--- NOTE | 2024-10-25 12:22 | MHC.CM.PN ---
Pt is medically cleared for discharge home with resumption of [facility], pt has arranged her own transport home.
== END 2024-10-25 12:59 | disposition home health service (06) | DRG 292 ==
LOC: HO.ED 22:06 → HO.EDOVER 10-10 00:37 → HO.IMC 10-10 15:22
PROVIDERS: Nurse Practitioner Acute Care; Physician Assistant Medical; Admitting Provider Physician Assistant; Emergency Provider Emergency Medicine; PCP Internal Medicine; Visit Provider Physician Assistant Medical
DX: I50.23 Acute on chronic systolic (congestive) heart failure (principal); I42.8 Other cardiomyopathies; I48.19 Other persistent atrial fibrillation; N17.9 Acute kidney failure, unspecified; N18.30 Chronic kidney disease, stage 3 unspecified; E11.22 Type 2 diabetes mellitus with diabetic chronic kidney disease; D63.1 Anemia in chronic kidney disease; E78.5 Hyperlipidemia, unspecified; M54.9 Dorsalgia, unspecified; K59.00 Constipation, unspecified; R19.5 Other fecal abnormalities; I08.2 Rheumatic disorders of both aortic and tricuspid valves; I27.20 Pulmonary hypertension, unspecified; E87.5 Hyperkalemia; G89.29 Other chronic pain; R94.31 Abnormal electrocardiogram [ECG] [EKG]; W19.XXXA Unspecified fall, initial encounter; J45.30 Mild persistent asthma, uncomplicated; R79.1 Abnormal coagulation profile; Z20.822 Contact with and (suspected) exposure to COVID-19; Z95.2 Presence of prosthetic heart valve; Z87.891 Personal history of nicotine dependence; Z79.01 Long term (current) use of anticoagulants; Z79.899 Other long term (current) drug therapy
CPT/HCPCS: 0241U; 36415; 73560; 74018; 74176; 80048; 80053; 80076; 81001; 82272; 82803; 82947; 83010; 83615; 83735; 83880; 85014; 85018; 85025; 85027; 85045; 85610; 86850; 86880; 86900; 86901; 86923; 93005; 93306; 93971; 97116; 97162; 97530; 99285; J0131; J0737; J1630; J1940; J2060; J2405; J2765; J3010; P9016; Q9957

== ENCOUNTER → 2024-10-09 16:47 | Outpatient (BNV) | payer OTHER, SELFPAY | PROVIDERS: Emergency Provider Emergency Medicine; PCP Internal Medicine; Visit Provider Radiology Diagnostic Radiology | DX: R10.9 Unspecified abdominal pain (principal) | CPT/HCPCS: 74176 ==

== ENCOUNTER 2024-10-10 00:24 | Outpatient (BNV) | payer OTHER, SELFPAY | END 2024-10-15 07:00 | PROVIDERS: Admitting Provider Physician Assistant; Emergency Provider Emergency Medicine; PCP Internal Medicine; Visit Provider Internal Medicine | DX: I50.20 Unspecified systolic (congestive) heart failure (principal); I35.0 Nonrheumatic aortic (valve) stenosis; Z95.2 Presence of prosthetic heart valve; I36.1 Nonrheumatic tricuspid (valve) insufficiency | CPT/HCPCS: 93306 ==

== ENCOUNTER 2024-10-10 00:24 | Outpatient (BNV) | payer OTHER, SELFPAY | END 2024-10-14 12:35 | PROVIDERS: Admitting Provider Physician Assistant; Emergency Provider Emergency Medicine; PCP Internal Medicine; Visit Provider Radiology Diagnostic Radiology | DX: J90 Pleural effusion, not elsewhere classified (principal); R16.0 Hepatomegaly, not elsewhere classified | CPT/HCPCS: 74018 ==

== ENCOUNTER 2024-10-10 00:24 | Outpatient (BNV) | payer OTHER, SELFPAY | END 2024-10-19 01:44 | PROVIDERS: Admitting Provider Physician Assistant; Emergency Provider Emergency Medicine; PCP Internal Medicine; Visit Provider General Practice | DX: M25.562 Pain in left knee (principal); M25.561 Pain in right knee; W19.XXXA Unspecified fall, initial encounter | CPT/HCPCS: 73560 ==

== ENCOUNTER 2024-10-10 00:24 | Outpatient (BNV) | payer OTHER, SELFPAY | END 2024-10-22 09:02 | PROVIDERS: Admitting Provider Physician Assistant; Emergency Provider Emergency Medicine; PCP Internal Medicine; Visit Provider Radiology Diagnostic Radiology | DX: M79.661 Pain in right lower leg (principal); R10.9 Unspecified abdominal pain | CPT/HCPCS: 74018; 93971 ==

== ENCOUNTER → 2024-10-10 00:24 | Outpatient (BNV) | payer OTHER, SELFPAY | PROVIDERS: Admitting Provider Physician Assistant; Emergency Provider Emergency Medicine; PCP Internal Medicine; Visit Provider Physician Assistant Medical | DX: K92.2 Gastrointestinal hemorrhage, unspecified (principal); R79.1 Abnormal coagulation profile; J90 Pleural effusion, not elsewhere classified; R94.31 Abnormal electrocardiogram [ECG] [EKG] | CPT/HCPCS: 99223; 99232; 99233; 99499 ==

== ENCOUNTER → 2024-10-10 00:24 | Outpatient (BNV) | payer OTHER, SELFPAY | PROVIDERS: Admitting Provider Physician Assistant; Emergency Provider Emergency Medicine; PCP Internal Medicine; Visit Provider Internal Medicine Cardiovascular Disease | DX: I50.9 Heart failure, unspecified (principal); Z95.2 Presence of prosthetic heart valve | CPT/HCPCS: 93010; 99223 ==

== ENCOUNTER → 2024-10-10 00:24 | Outpatient (BNV) | payer OTHER, SELFPAY | PROVIDERS: Admitting Provider Physician Assistant; Emergency Provider Emergency Medicine; PCP Internal Medicine; Visit Provider Internal Medicine Medical Oncology | DX: D64.9 Anemia, unspecified (principal) | CPT/HCPCS: 99222 ==